=== PATIENT | male | born 1955 | race Caucasian/White ===

== ENCOUNTER 2023-05-21 06:42 | Outpatient (OUT) | payer OTHER, SELFPAY ==
[2023-05-21 07:10] LABS: Basophils Absolute Auto 0.1 10^3/uL (0.0-0.1); Eosinophils Absolute Auto 0.2 10^3/uL (0.0-0.7); Eosinophils Percent Auto 3.7 % (0.9-7.0); Hematocrit 36.7 % (42.0-54.0); Hemoglobin 11.5 g/dL (14.0-18.0); Immature Granulocytes Abs Auto 0.08 10^3/uL (0.00-0.03); Immature Granulocytes Pct Auto 1.3 % (0.0-0.5); Lymphocytes Absolute Auto 0.8 10^3/uL (1.2-3.8); Lymphocytes Percent Auto 12.8 % (20.5-60.0); Mean Corpuscular HGB Conc 31.3 g/dL (29.9-35.2); Mean Corpuscular Volume 86.2 fL (80.0-94.0); Mean Platelet Volume 11.2 fL (9.5-13.5); Monocytes Absolute Auto 0.6 10^3/uL (0.3-0.8); Monocytes Percent Auto 9.3 % (1.7-12.0); Neutrophils Absolute Auto 4.5 10^3/uL (1.4-6.5); Neutrophils Percent Auto 71.9 % (43.0-75.0); Platelet Count 201 10^3/uL (150-450); Red Blood Count 4.26 10^6/uL (4.70-6.10); Red Cell Distribution Width 15.3 % (11.0-15.0); White Blood Count 6.3 10^3/uL (4.0-11.0)
[2023-05-21 07:48] LABS: Estimated Average Glucose 137 mg/dL; Glycohemoglobin A1C 6.4 % (4.5-6.2)
[2023-05-21 08:07] LABS: Alanine Aminotransferase 36 U/L (16-63); Albumin Globulin Ratio 1.1; Albumin Level 3.9 g/dL (3.4-5.0); Alkaline Phosphatase 83 U/L (46-116); Anion Gap 13.9; Aspartate Amino Transferase 21 U/L (15-37); BUN Creatinine Ratio 23.4; Bilirubin Total 0.3 mg/dL (0.2-1.0); Calcium 9.4 mg/dL (8.5-10.1); Carbon Dioxide 26.1 mmol/L (21.0-32.0); Chloride 104 mmol/L (98-107); Chol HDL Ratio 4.8; Cholesterol 209 mg/dL (<=200); Estimated GFR (African America >60 (>=60); Estimated GFR (Non-African Ame 58 (>=60); Globulin 3.6 g/dL; Glucose 129 mg/dL (74-106); HDL Cholesterol 44 mg/dL (40-60); Sodium 140 mmol/L (136-145); Total Protein 7.5 g/dL (6.4-8.2); Triglycerides 243 mg/dL (<=150); VLDL CHOLESTEROL 48.6 mg/dL
[2023-05-21 08:11] LABS: Free T3 2.41 pg/mL (2.18-3.98); Thyroid Stimulating Hormone 1.897 uIU/mL (0.358-3.740); Uric Acid 8.7 mg/dL (3.5-7.2)
[2023-05-21 08:14] LABS: Prostate Specific Antigen Scrn 1.21 ng/mL (<=4.00)
[2023-05-22 11:09] LABS: Insulin 17.5 uIU/mL (2.6-24.9)
[2023-05-23 03:14] LABS: Occult Blood Negative
== END 2023-05-21 06:43 | disposition home or self-care (01) ==
LOC: LAB 06:42
PROVIDERS: PCP Family Medicine; Visit Provider Family Medicine
DX: I10 Essential (primary) hypertension (principal); E78.00 Pure hypercholesterolemia, unspecified; I25.10 Atherosclerotic heart disease of native coronary artery without angina pectoris; Z12.5 Encounter for screening for malignant neoplasm of prostate; R73.09 Other abnormal glucose
CPT/HCPCS: 36415; 80053; 80061; 83036; 83525; 84436; 84443; 84481; 84550; 85025; G0103; G0328

== ENCOUNTER 2023-06-04 07:33 | Outpatient (OUT) | payer OTHER, SELFPAY ==
--- NOTE | 2023-06-04 07:45 | NM_ITS ---
Patient: FEDERICO BURR Exam Date: 06/04/2023 : 1955 Gender:M Ordering : DR Emmanuel Crane . Admission #: [id number] Family : Order #: [id number] CLICK HERE TO VIEW EXAM RADIOLOGY REPORT PROCEDURE: NM [place]IL[place] PERF SPECT REST STR COMPARISON: None. INDICATIONS: Hypertension, coronary artery disease TECHNIQUE: Exam Description: Stress/Rest one day protocol gated SPECT Rest Imagin.8 mCi Tc-99m Cardiolite IV on 06/04/2023 Stress Imaging 30.4 mCi Tc-99m Cardiolite IV on 06/04/2023 Exercise Protocol: 0.4 mg Lexiscan given IV Heart Rate (bpm): Rest: 67 Max: 91 PMHR: 59 Blood Pressure: Rest: 184/88 Max: 184/88 Symptoms: chest pain, neck pain Rest and peak stress ECG findings were abnormal and the exercise portion of the study was abnormal per attending physician Dr. Trinh due to EKG changes. For more details please see separate cardiac stress test report. FINDINGS: QUALITY OF STUDY: Good. PERFUSION DEFECT: LOCATION: Basal inferoseptal. Basal inferior. Basal inferolateral. Mid-anteroseptal. Mid-inferoseptal. Mid-inferior. Mid-inferolateral. Apical anterior. Apical septal. Apical inferior. [place]. SIZE: Large (5 or more segments). SEVERITY: TYPE: Mixed. WALL MOTION: Akinesis: Apical anterior. Apical septal. Apical inferior. Apical lateral. [place]. LV SIZE: Enlarged; EDV 166 mL. TID / TCD: None; 1.1 LVEF: Abnormal. Calculated EF 48%. SUMMARY: Myocardial perfusion imaging study has ABNORMAL findings. CONCLUSION: 1. Slightly reversible perfusion involving the anterior, septal, and inferior lateral sainz. 2. Fixed, absent perfusion of the inferior wall and apex. 3. Akinesis of the apex and a pickle portions of the anterior septal inferior and lateral sainz. 4. Large left ventricle, 166 mL. 5. Abnormal low ejection fraction, 48%. Dictated by: Deshaun Chairez M.D. on 06/04/2023 at 14:44 Approved by: Deshaun Chairez M.D. on 06/04/2023 at 14:50
[2023-06-04] MEDS: REGADENOSON 0.4 MG/5 ML SYRINGE IV (10:07)
--- NOTE | 2023-06-04 11:23 | P.STRESS_ITS ---
Stress Test Stress Test Requesting physician: Emmanuel Crane Procedure: Lexiscan Cardiolite stress test General Information: Reason for Stress Test: Chest pain Cardiac History and Risk Factors: History of NC 2006 s/p stents. Resting 12 - Lead Electrocardiogram: Rate & rhythm: Sinus bradycardia at a rate of 58. [place]: Normal T-waves: Inverted in III, biphasic in II & aVF, flattened in V3-6. ST-segments: Downsloping in II & aVF, and borderline downsloping in V5-6. Stress Test: Protocol: Stoney protocol was initiated, but due to fatigue and frequent ectopic beats, the exercise component was unable to achieve target heart rate and therefore canceled.? Testing was changed to Lexiscan protocol, with injection of 0.4mg Lexiscan IV push followed by Cardiolite. Blood pressure: Initial: 144/90, Maximum: 184/88 Rate & rhythm: Patient remained in normal sinus rhythm during the study.? The maximum heart rate was 91, which was 59% of the maximum predicted heart rate 154. ST-segments & T-waves: At the end of the aborted exercise component (1 minute into recovery), there was new downsloping in I and 1mm ST segment depression in aVL; inverted T-waves in II, III, and aVF assumed a positive orientation during this period. No changes were noted after injection of Lexiscan when compared to baseline EKG. Patient response/symptoms: There were reproducible symptoms (neck pain) similar to the chief complaint at the end of the aborted exercise portion which resolved at rest. Interpretation: This is an abnormal stress test.? Despite aborting the exercise portion initially, the patient had reproducible pain accompanied by positive findings in the anterior leads. These findings were not reproducible during injection of Lexiscan. The patient voiced [] reproducible symptoms alejandro to the chief complaint.? Cardiolite imaging interpretation will be reported separately.? Clinical correlation required.?
== END 2023-06-04 07:34 | disposition home or self-care (01) ==
LOC: NM 07:33
PROVIDERS: PCP Family Medicine; Visit Provider Family Medicine
DX: I10 Essential (primary) hypertension (principal); E78.00 Pure hypercholesterolemia, unspecified; I25.10 Atherosclerotic heart disease of native coronary artery without angina pectoris; R07.9 Chest pain, unspecified
CPT/HCPCS: 78452; 93017; A9500; J2785

== ENCOUNTER 2023-06-30 06:39 | Outpatient (OUT) | payer OTHER, SELFPAY ==
[2023-06-30 06:56] LABS: Basophils Absolute Auto 0.1 10^3/uL (0.0-0.1); Basophils Percent Auto 1.4 % (0.2-2.0); Eosinophils Absolute Auto 0.3 10^3/uL (0.0-0.7); Eosinophils Percent Auto 6.1 % (0.9-7.0); Hematocrit 38.8 % (42.0-54.0); Hemoglobin 12.1 g/dL (14.0-18.0); Immature Granulocytes Abs Auto 0.07 10^3/uL (0.00-0.03); Immature Granulocytes Pct Auto 1.4 % (0.0-0.5); Lymphocytes Absolute Auto 0.9 10^3/uL (1.2-3.8); Lymphocytes Percent Auto 17.4 % (20.5-60.0); Mean Corpuscular HGB Conc 31.2 g/dL (29.9-35.2); Mean Corpuscular Hemoglobin 26.8 pg (25.9-34.0); Mean Corpuscular Volume 85.8 fL (80.0-94.0); Mean Platelet Volume 10.9 fL (9.5-13.5); Monocytes Absolute Auto 0.5 10^3/uL (0.3-0.8); Monocytes Percent Auto 10.7 % (1.7-12.0); Neutrophils Absolute Auto 3.2 10^3/uL (1.4-6.5); Platelet Count 200 10^3/uL (150-450); Red Blood Count 4.52 10^6/uL (4.70-6.10); Red Cell Distribution Width 15.4 % (11.0-15.0); White Blood Count 5.1 10^3/uL (4.0-11.0)
[2023-06-30 07:15] LABS: Anion Gap 12.3; BUN Creatinine Ratio 21.3; Calcium 9.5 mg/dL (8.5-10.1); Carbon Dioxide 28.5 mmol/L (21.0-32.0); Chloride 103 mmol/L (98-107); Estimated GFR (African America >60 (>=60); Estimated GFR (Non-African Ame 59 (>=60); Glucose 161 mg/dL (74-106); Potassium 3.8 mmol/L (3.5-5.1); Sodium 140 mmol/L (136-145)
== END 2023-06-30 06:40 | disposition home or self-care (01) ==
LOC: LAB 06:39
PROVIDERS: PCP Family Medicine; Visit Provider Internal Medicine Cardiovascular Disease
DX: I11.9 Hypertensive heart disease without heart failure (principal)
CPT/HCPCS: 36415; 80048; 85025

== ENCOUNTER 2024-08-05 10:02 | Outpatient (OUT) | payer MEDICARE, OTHER, SELFPAY ==
[2024-08-05 10:40] LABS: Basophils Absolute Auto 0.1 10^3/uL (0.0-0.1); Basophils Percent Auto 1.1 % (0.2-2.0); Eosinophils Absolute Auto 0.3 10^3/uL (0.0-0.7); Eosinophils Percent Auto 5.7 % (0.9-7.0); Hematocrit 40.1 % (42.0-54.0); Hemoglobin 12.6 g/dL (14.0-18.0); Immature Granulocytes Abs Auto 0.05 10^3/uL (0.00-0.03); Immature Granulocytes Pct Auto 0.9 % (0.0-0.5); Lymphocytes Absolute Auto 0.9 10^3/uL (1.2-3.8); Lymphocytes Percent Auto 16.7 % (20.5-60.0); Mean Corpuscular HGB Conc 31.4 g/dL (29.9-35.2); Mean Corpuscular Hemoglobin 27.3 pg (25.9-34.0); Mean Platelet Volume 10.8 fL (9.5-13.5); Monocytes Absolute Auto 0.4 10^3/uL (0.3-0.8); Monocytes Percent Auto 8.1 % (1.7-12.0); Neutrophils Absolute Auto 3.6 10^3/uL (1.4-6.5); Neutrophils Percent Auto 67.5 % (43.0-75.0); Platelet Count 158 10^3/uL (150-450); Red Blood Count 4.61 10^6/uL (4.70-6.10); White Blood Count 5.4 10^3/uL (4.0-11.0)
[2024-08-05 11:46] LABS: Thyroid Stimulating Hormone 1.998 uIU/mL (0.358-3.740)
[2024-08-05 12:06] LABS: Prostate Specific Antigen Scrn 1.32 ng/mL (<=4.00)
== END 2024-08-05 10:03 | disposition home or self-care (01) ==
LOC: LAB 10:07
PROVIDERS: PCP Family Medicine; Visit Provider Family Medicine
DX: E11.35 Type 2 diabetes mellitus with proliferative diabetic retinopathy (principal)
CPT/HCPCS: 36415; 84439; 84443; 85025; G0103

== ENCOUNTER 2024-09-02 13:37 | Outpatient (OUT) | payer MEDICARE, OTHER, SELFPAY ==
[2024-09-02 14:02] LABS: Basophils Percent Auto 0.7 % (0.2-2.0); Eosinophils Absolute Auto 0.3 10^3/uL (0.0-0.7); Eosinophils Percent Auto 4.8 % (0.9-7.0); Hematocrit 38.5 % (42.0-54.0); Hemoglobin 12.1 g/dL (14.0-18.0); Immature Granulocytes Abs Auto 0.05 10^3/uL (0.00-0.03); Immature Granulocytes Pct Auto 0.9 % (0.0-0.5); Lymphocytes Percent Auto 17.6 % (20.5-60.0); Mean Corpuscular HGB Conc 31.4 g/dL (29.9-35.2); Mean Corpuscular Hemoglobin 27.3 pg (25.9-34.0); Mean Corpuscular Volume 86.7 fL (80.0-94.0); Mean Platelet Volume 11.2 fL (9.5-13.5); Monocytes Absolute Auto 0.5 10^3/uL (0.3-0.8); Monocytes Percent Auto 7.8 % (1.7-12.0); Neutrophils Percent Auto 68.2 % (43.0-75.0); Platelet Count 167 10^3/uL (150-450); Red Blood Count 4.44 10^6/uL (4.70-6.10); Red Cell Distribution Width 15.7 % (11.0-15.0); Reticulocyte Pct Auto 1.92 % (0.60-3.10); White Blood Count 5.8 10^3/uL (4.0-11.0)
[2024-09-03 04:10] LABS: Vitamin B12 >2000 pg/mL (232-1245)
[2024-09-05 14:09] LABS: Albumin 3.9 g/dL (2.9-4.4); Alpha-1-Globulin 0.2 g/dL (0.0-0.4); Alpha-2-Globulin 0.7 g/dL (0.4-1.0); Gamma Globulin 0.8 g/dL (0.4-1.8); Protein, Total 6.4 g/dL (6.0-8.5)
[2024-09-06 00:07] LABS: Copper Level 71 ug/dL (69-132)
== END 2024-09-02 13:38 | disposition home or self-care (01) ==
LOC: LAB 13:40
PROVIDERS: PCP Family Medicine; Visit Provider Family Medicine
DX: D64.9 Anemia, unspecified (principal)
CPT/HCPCS: 36415; 82525; 82607; 82728; 82746; 83540; 84155; 84165; 85025; 85045

== ENCOUNTER 2024-09-19 07:34 | Outpatient (RCR) | payer MEDICARE, OTHER, SELFPAY ==
[2024-09-19 11:00] VITALS: BP 132/69; PULSE 61; TEMP 36.6; O2SAT 94
[2024-09-19] MEDS: FERRIC CARBOXYMALTOSE 750 MG in 0.9 % SODIUM CHLORIDE 250 ML 795 MG IV (11:07)
== END 2024-09-22 23:59 | disposition home or self-care (01) ==
LOC: HEMC 07:34
PROVIDERS: PCP Family Medicine; Visit Provider Internal Medicine Hematology & Oncology
DX: D50.9 Iron deficiency anemia, unspecified (principal); D64.9 Anemia, unspecified; K90.9 Intestinal malabsorption, unspecified; K21.9 Gastro-esophageal reflux disease without esophagitis; I25.10 Atherosclerotic heart disease of native coronary artery without angina pectoris; Z95.1 Presence of aortocoronary bypass graft
CPT/HCPCS: 96365; G0463; J1439

== ENCOUNTER 2024-09-26 07:31 | Outpatient (RCR) | payer MEDICARE, OTHER, SELFPAY ==
--- OUTSIDE RECORDS SUMMARY | 2024-09-26 07:43 | XMS_ITS | CCD ---
Author Organization [facility] Care Team Providers Care Industrial Hygiene Manager Name Role Phone DON, DR CONCEPCION Primary Care Unavailable BETHANY, DR SHERIFF Attending Unavailable GRILLIS, DR SHERIFF Consulting Unavailable GRILLIS, DR SHERIFF Admitting Unavailable PETROS, ALEXUS Consulting Unavailable HOY, DR CONCEPCION Primary Care Unavailable HOY, DR CONCEPCION Admitting Unavailable HOY, DR CONCEPCION Attending Unavailable HOY, DR CONCEPCION Consulting Unavailable HOY, DR CONCEPCION Admitting Unavailable HOY, DR CONCEPCION Attending Unavailable HOY, DR CONCEPCION Consulting Unavailable HOY, DR CONCEPCION Primary Care Unavailable GRILLIS, DR SHERIFF Admitting Unavailable HOY, DR CONCEPCION Primary Care Unavailable GRILLIS, DR SHERIFF Attending Unavailable GRILLIS, DR SHERIFF Consulting Unavailable ALGHOTHANI, MOHAMAD Attending Unavailable CARRIZO, STEPHANIE Attending Unavailable CARRIZO, STEPHANIE Attending Unavailable CARRIZOSENSTEPHANIE Attending Unavailable CARRIZO, STEPHANIE Referring Unavailable CARRIZO, STEPHANIE Referring Unavailable QUAN, Referring Unavailable CARRIZO, STEPHANIE Referring Unavailable ALGHOTHANI, MOHAMAD Admitting Unavailable ALGHOTHANI, MOHAMAD Attending Unavailable CARRIZO, STEPHANIE Referring Unavailable CARRIZO, STEPHANIE Referring Unavailable ALGHOTHANI, MOHAMAD Referring Unavailable CARRIZO, STEPHANIE Referring Unavailable CARRIZO, STEPHANIE Referring Unavailable CARRIZO, STEPHANIE Referring Unavailable ALGHOTHANI, MOHAMAD Referring Unavailable Lester NOLASCO, Coco Quiroga Unavailable Rosalia Trinidad MD Unavailable [phone] Jamey Crane MD Primary Care Provider [phone] Rosalia Trinidad MD Unavailable [phone] Jamey Crane MD Primary Care Provider [phone] Jamey Crane MD Primary Care Provider [phone] MARYSOL MORALES Attending Unavailable HOY, JAMEY M Referring Unavailable HOY, JAMEY M Primary Care Unavailable COCO BATISTA Attending Unavailable HOY, JAMEY M Primary Care Unavailable COCO BATISTA Referring Unavailable HOY, JAMEY M Primary Care Unavailable COCO BATISTA Admitting Unavailable COCO BATISTA Referring Unavailable COCO BATISTA Attending Unavailable HOY, JAMEY M Primary Care Unavailable COCO BATISTA Referring Unavailable HOY, JAMEY M Primary Care Unavailable SIMPFENDORFER, ROSALIA Wei Referring Unavaila ble HOY, JAMEY M Primary Care Unavailable HOY, JAMEY M Primary Care Unavailable COCO BATISTA Referring Unavailable COCO BATISTA Referring Unavailable HOY, JAMEY M Primary Care Unavailable SUSHILA LAZAR Attending Unavailable HOY, JAMEY M Primary Care Unavailable SIMPFENDORFERROSALIA C Referring Unavaila ble HOY, JAMEY M Primary Care Unavailable COCO BATISTA Admitting Unavailable COCO BATISTA Referring Unavailable COCO BATISTA Attending Unavailable HOY, JAMEY M Primary Care Unavailable COCO BATISTA Admitting Unavailable COCO BATISTA Referring Unavailable COCO BATISTA Attending Unavailable HOY, JAMEY M Primary Care Unavailable COCO BATISTA Referring Unavailable HOY, JAMEY M Primary Care Unavailable HOY, JAMEY M Primary Care Unavailable COCO BATISTA Referring Unavailable SIMPFENDORFROSALIA TRIANA Attending Unavaila ble COCO BATISTA Referring Unavailable HOY, JAMEY M Primary Care Unavailable COCO BATISTA Attending Unavailable COCO BATISTA Admitting Unavailable SIMPFENDORFERROSALIA C Attending Unavaila ble SIMPFENDORFERROSALIA C Referring Unavaila ble HOY, JAMEY M Primary Care Unavailable SIMPFENDORFER, ROSALIA C Referring Unavaila ble HOY, JAMEY M Primary Care Unavailable SIMPFENDORFER, ROSALIA C Referring Unavaila ble HOY, JAMEY M Primary Care Unavailable SIMPFENDORFER, ROSALIA C Referring Unavaila ble HOY, JAMEY M Primary Care Unavailable COCO BATISTA Attending Unavailable HOY, JAMEY M Primary Care Unavailable COCO BATISTA Referring Unavailable COCO BATISTA Attending Unavailable COCO BATISTA Admitting Unavailable HOY, JAMEY M Primary Care Unavailable COCO BATISTA Referring Unavailable COCO BATISTA Attending Unavailable COCO BATISTA Admitting Unavailable HOY, JAMEY M Primary Care Unavailable ROSALIA TRINIDAD Attending Unavaila ble ROSALIA TRINIDAD Referring Unavaila ble HOY, JAMEY M Primary Care Unavailable HOY, JAMEY M Primary Care Unavailable COCO BATISTA Referring Unavailable Hoy Jamey NOLASCO Primary Care Provider [phone] Jamey Crane MD Primary Care Provider [phone] HOY, JAMEY M Referring Unavailable HOY, JAMEY M Primary Care Unavailable HOY, JAMEY M Referring Unavailable HOY, JAMEY M Primary Care Unavailable HOY, JAMEY M Referring Unavailable HOY, JAMEY M Primary Care Unavailable HOY, JAMEY M Referring Unavailable HOY, JAMEY M Primary Care Unavailable HOY, JAMEY M Referring Unavailable HOY, JAMEY M Primary Care Unavailable HOY, JAMEY M Referring Unavailable HOY, AJMEY M Primary Care Unavailable HOY, JAMEY M Referring Unavailable HOY, JAMEY M Primary Care Unavailable HOY, JAMEY M Referring Unavailable HOY, JAMEY M Primary Care Unavailable HOY, JAMEY M Referring Unavailable HOY, JAMEY M Primary Care Unavailable HOY, JAMEY M Referring Unavailable HOY, JAMEY M Primary Care Unavailable HOY, JAMEY M Referring Unavailable HOY, JAMEY M Primary Care Unavailable HOY, JAMEY M Referring Unavailable HOY, JAMEY M Primary Care Unavailable HOY, JAMEY M Referring Unavailable HOY, JAMEY M Primary Care Unavailable HOY, JAMEY M Referring Unavailable HOY, JAMEY M Primary Care Unavailable HOY, JAMEY M Referring Unavailable HOY, JAMEY M Primary Care Unavailable HOY, JAMEY M Referring Unavailable HOY, JAMEY M Primary Care Unavailable HOY, JAMEY M Referring Unavailable HOY, JAMEY M Primary Care Unavailable HOY, JAMEY M Referring Unavailable HOY, JAMEY M Primary Care Unavailable HOY, JAMEY M Referring Unavailable HOY, JAMEY M Primary Care Unavailable HOY, JAMEY M Referring Unavailable HOY, JAMEY M Primary Care Unavailable HOY, JAMEY M Referring Unavailable HOY, JAMEY M Primary Care Unavailable HOY, JAMEY M Referring Unavailable HOY, JAMEY M Primary Care Unavailable HOY, JAMEY M Referring Unavailable HOY, JAMEY M Primary Care Unavailable HOY, JAMEY M Referring Unavailable HOY, JAMEY M Primary Care Unavailable HOY, JAMEY M Referring Unavailable HOY, JAMEY M Primary Care Unavailable HOY, JAMEY M Referring Unavailable HOY, JAMEY M Primary Care Unavailable HOY, JAMEY M Referring Unavailable HOY, JAMEY M Primary Care Unavailable HOY, JAMEY M Referring Unavailable HOY, JAMEY M Primary Care Unavailable HOY, JAMEY M Referring Unavailable HOY, JAMEY M Primary Care Unavailable HOY, JAMEY M Referring Unavailable HOY, JAMEY M Primary Care Unavailable HOY, JAMEY M Referring Unavailable HOY, JAMEY M Primary Care Unavailable HOY, JAMEY M Referring Unavailable HOY, JAMEY M Primary Care Unavailable HOY, JAMEY M Referring Unavailable HOY, JAMEY M Primary Care Unavailable HOY, JAMEY M Referring Unavailable HOY, JAMEY M Primary Care Unavailable HOY, JAMEY M Referring Unavailable HOY, JAMEY M Primary Care Unavailable HOY, JAMEY M Referring Unavailable HOY, JAMEY M Primary Care Unavailable HOY, JAMEY M Referring Unavailable HOY, JAMEY M Primary Care Unavailable HOY, JAMEY M Referring Unavailable HOY, JAMEY M Primary Care Unavailable HOY, JAMEY M Referring Unavailable HOY, JAMEY M Primary Care Unavailable HOY, JAMEY M Referring Unavailable HOY, JAMEY M Primary Care Unavailable HOY, JAMEY M Referring Unavailable HOY, JAMEY M Primary Care Unavailable HOY, JAMEY M Referring Unavailable HOY, JAMEY M Primary Care Unavailable HOY, JAMEY M Referring Unavailable HOY, JAMEY M Primary Care Unavailable HOY, JAMEY M Referring Unavailable HOY, JAMEY M Primary Care Unavailable HOY, JAMEY M Referring Unavailable HOY, JAMEY M Primary Care Unavailable HOY, JAMEY M Referring Unavailable HOY, JAMEY M Primary Care Unavailable HOY, JAMEY M Referring Unavailable HOY, JAMEY M Primary Care Unavailable HOY, JAMEY M Referring Unavailable HOY, JAMEY M Primary Care Unavailable HOY, JAMEY M Referring Unavailable HOY, JAMEY M Primary Care Unavailable HOY, JAMEY M Referring Unavailable JAMEY CRANE Primary Care Unavailable JAMEY CRANE M Referring Unavailable JAMEY CRANE M Primary Care Unavailable JAMEY CRANE M Referring Unavailable JAMEY CRANE M Primary Care Unavailable SHARITA SIMS Admitting Unavailable SHARITA SIMS Attending Unavailable JAMEY CRANE Primary Care Unavailable Medications Current Medications Medication Drug Class(es) Dates Sig (Normalized) Sig (Original) acetaminophen 500 mg oral tablet (8 sources) Start: 11-02-2023 take 2 tablets by mouth every six hours as needed acetaminophen (TYLENOL EXTRA STRENGTH) 500 mg tablet Take 2 tablets (1,000 mg total) by mouth every 6 (six) hours as needed. 11/02/2023 Active Comment on above: Take 2 tablets by mo [facility] every 6 hours as needed for pain. allopurinol 100 mg oral tablet (20 sources) Xanthine Oxidase Inhibitor Start: 11-02-2023 take 1 tablet by mouth once daily allopurinol (ZYLOPRIM) 100 mg tablet Take 1 tablet by mouth once daily. 11/02/2023 Active Comment on above: Take 100 mg by mouth once daily. Take 1 tablet by [facility] once daily. amLODIPine 5 mg oral tablet (7 sources) Dihydropyridine Calcium Channel Jackie Start: 11-02-2023 End: 2024 take 1 tablet by mouth once daily amLODIPine (NORVASC) 5 mg tablet Take 1 tablet by mouth once daily. 90 tablet 1 11/02/2023 Active Comment on above: Take 1 tablet by [facility] once daily. ascorbic acid 1000 mg oral tablet (20 sources) Vitamin C take 1 tablet by mouth in the morning ascorbic acid, vitamin C, (VITAMIN C) 1000 mg tablet Take 1 tablet (1,000 mg total) by mouth in the morning. Active Comment on above: Take 1,000 mg by [facility]. aspirin 81 mg chewable tablet (20 sources) Platelet Aggregation Inhibitor, Nonsteroidal Anti-inflammatory Drug Start: 11-02-2023 take 1 tablet by mouth once daily aspirin 81 mg chewable tablet Take 1 tablet by mouth once daily. 11/02/2023 Active take 1 tablet by mouth in the mo rning aspirin 81 mg Take 1 tablet (81 mg total) by mouth in the morning. Active take 1 tablet by mouth once amber y aspirin 81 mg chewable tablet Take 81 mg by mouth once daily. 0 Suspended Comment on above: Take 81 mg by mouth once daily. Take 1 tablet by [facility] once daily. atorvastatin 40 mg oral tablet (12 sources) HMG-CoA Reductase Inhibitor Start: take 1 tablet by mouth once daily atorvastatin (LIPITOR) 40 mg tablet Take 1 tablet by mouth once daily. 11/02/2023 Active take 1 tablet by mouth once amber y atorvastatin (LIPITOR) 40 mg tablet Take 40 mg by mouth once daily. 0 Suspended Comment on above: Take 40 mg by mouth once daily. Take 1 tablet by [facility] once daily. carvedilol 25 mg oral tablet (20 sources) alpha-Adrenergic Jackie, beta-Adrenergic Jackie take 1 tablet by mouth once daily in the morning carvedilol (COREG) 25 mg tablet Take 1 tablet (25 mg total) by mouth in the morning and 1 tablet (25 mg total) before bedtime. Take 25 mg by mouth daily. Active take 1 tablet by mouth twice samir ly carvedilol (COREG) 25 mg tablet 2 (two) times a day. Take 25 mg by mouth daily Active Comment on above: Take 25 mg by mouth two times a day with meals. cholecalciferol 0.05 mg oral capsule (20 sources) Vitamin D take 1 capsule by mouth in the morning cholecalciferol, vitamin D3, 2,000 units capsule Take 1 capsule (2,000 Units total) by mouth in the morning. Active Comment on above: Take 2,000 Units by mouth. clopidogrel 75 mg oral tablet (20 sources) P2Y12 Platelet Inhibitor take 1 tablet by mouth once daily clopidogrel (PLAVIX) 75 mg tablet Take 75 mg by mouth once daily. Active Comment on above: Take 75 mg by mouth once daily. cyanocobalamin, vitamin B-12, (VITAMIN B-12 ORAL) (2 sources) take 2500 mg by mouth once daily cyanocobalamin, vitamin B-12, (VITAMIN B-12 ORAL) Take 2,500 mg by mouth once daily. Active take 2500 mg by mouth once daily cyanocobalamin, vitamin B-12, (VITAMIN B-12 ORAL) Take 2,500 mg by mouth once daily. 0 Active empagliflozin 10 mg oral tablet (20 sources) Sodium-Glucose Cotransporter 2 Inhibitor Start: 12-10-2020 empagliflozin (JARDIANCE) 10 mg tablet tablet JARDIANCE 10 MG TABLET 12/10/2020 Active Comment on above: Take 10 mg by mouth daily with breakfast. Take 1 tablet by bl[facility] daily with breakfast. ezetimibe 10 mg oral tablet (20 sources) Dietary Cholesterol Absorption Inhibitor Start: 11-02-2023 take 1 tablet by mouth once daily ezetimibe (ZETIA) 10 mg tablet Take 1 tablet by mouth once daily. 11/02/2023 Active Comment on above: Take 10 mg by mouth once daily. Take 1 tablet by [facility] once daily. febuxostat 80 mg oral tablet (20 sources) Xanthine Oxidase Inhibitor take 1 tablet by mouth once daily febuxostat (ULORIC) 80 mg tablet Take 80 mg by mouth daily. 0 Active ferrous sulfate 325 mg oral tablet (20 sources) Start: 09-05-2020 End: 06-14-2024 ferrous sulfate 325 (65 FE) mg tablet Take by mouth. 09/05/2020 Active Comment on above: Take by mouth as dir ected. furosemide 20 mg oral tablet (1 source) Loop Diuretic Start: 11-02-2023 End: 11-07-2023 take 1 tablet by mouth once daily furosemide (LASIX) 20 mg tablet Take 1 tablet by mouth once daily for 5 days. 5 tablet 0 11/02/2023 11/07/2023 Active Comment on above: Take 1 tablet by [facility] once daily for 5 days. gemfibrozil 600 mg oral tablet (20 sources) Peroxisome Proliferator Receptor alpha Agonist Start: 01-08-2021 gemfibroziL (LOPID) 600 mg tablet glimepiride 2 mg oral tablet (4 sources) Sulfonylurea glimepiride (AMARYL) 2 mg tablet Take 1 tablet (2 mg total) by mouth. Active hydroCHLOROthiazide 25 mg / olmesartan medoxomil 40 mg oral tablet (20 sources) Thiazide Diuretic, Angiotensin 2 Receptor Jackie take 1 tablet by mouth once daily olmesartan-hydroc hlorothiazide (BENICAR HCT) 40-25 mg per tablet Take 1 tablet by mouth daily Active Comment on above: Take 1 tablet by bl[facility] once daily. ibuprofen 800 mg oral tablet (20 sources) Nonsteroidal Anti-inflammatory Drug Start: 04-13-2018 take 1 tablet by mouth three times daily as needed for pain ibuprofen (ADVIL,MOTRIN) 800 mg tablet Take 1 tablet (800 mg total) by mouth 3 (three) times a day as needed for pain for up to 30 doses. 30 tablet 0 04/13/2018 Active 24 hr isosorbide mononitrate 30 mg extended release oral tablet (9 sources) Nitrate Vasodilator take 1 tablet by mouth once daily isosorbide mononitrate (IMDUR) 30 mg 24 hr tablet Take 1 tablet (30 mg total) by mouth daily. Active Comment on above: Take 30 mg by mouth once daily. magnesium sulfate 0.0277 meq/ml / potassium sulfate 0.0374 meq/ml / sodium sulfate 0.257 meq/ml oral solution (20 sources) Start: 01-15-2021 sodium,potassium, mag sulfates (SUPREP BOWEL PREP KIT) 17.5-3.13-1.6 gram recon soln 177 ml,actual weight, 2 times daily, Oral 1 kit 0 01/15/2021 Active Start: 01-15-2021 sodium,potassi um,mag sulfates (SUPREP BOWEL PREP KIT) 17.5-3.13-1.6 gram recon soln 177 ml,actual weight, 2 times daily, Oral 1 kit 0 01/15/2021 Active metFORMIN hydrochloride 1000 mg oral tablet (20 sources) Biguanide Start: 11-02-2023 take 1 tablet by mouth twice daily at mealtime metFORMIN (GLUCOPHAGE) 1,000 mg tablet Take 1 tablet by mouth two times a day with meals. 11/02/2023 Active Comment on above: Take 1,000 mg by blake th two times a day with meals. Take 1 tablet by blake two times a day with meals. niacin 500 mg extended release oral capsule (20 sources) Nicotinic Acid take 4 tablets by mouth once daily at bedtime niacin 500 mg CR capsule Take 500 mg by mouth nightly 4 tabs hs Active Comment on above: Take 500 mg by mouth nightly 4 tabs hs omega-3 acid ethyl esters (retirement) 1000 mg oral capsule (20 sources) take 4 tablets by mouth three times daily at bedtime omega-3 acid ethyl esters (LOVAZA) 1 gram capsule Take 1,000 mg by mouth 3 times daily 4 tabs at hs 0 Active pioglitazone 30 mg oral tablet (20 sources) Peroxisome Proliferator Receptor alpha Agonist, Peroxisome Proliferator Receptor gamma Agonist, Thiazolidinedione Start: 01-08-2021 pioglitazone (ACTOS) 30 mg tablet 01/08/2021 Active Comment on above: Take 30 mg by mouth once daily. Take 1 tablet by [facility] once daily. SITagliptin 100 mg oral tablet (20 sources) Dipeptidyl Peptidase 4 Inhibitor take 1 tablet by mouth once daily sitaGLIPtin (JANUVIA) 100 mg tablet Take 100 mg by mouth daily 0 Active tamsulosin hydrochloride 0.4 mg oral capsule (9 sources) alpha-Adrenergic Jackie Start: 11-02-2023 take 1 capsule by mouth in the morning tamsulosin (FLOMAX) 0.4 mg capsule Take 1 capsule (0.4 mg total) by mouth in the morning. 11/02/2023 Active Comment on above: Take 1 capsule by [facility] once daily. vitamin b12 1 mg/ml oral solution (2 sources) Vitamin B12 take 2500 mg by mouth in the morning cyanocobalamin, vitamin B-12, 1,000 mcg/mL drops Take 2,500 mg by mouth in the morning. Active Zinc (4 sources) take 50 mg by mouth in the morning ZINC ORAL Take 50 mg by mouth in the morning. Active take 50 mg by mouth once daily Z INC ORAL Take 50 mg by mouth once daily. Active take 50 mg by mouth once daily Z INC ORAL Take 50 mg by mouth once daily. 0 Active Completed/Discontinued Medications Medication Drug Class(es) Dates Sig (Normalized) Sig (Original) calcium polycarbophil 625 mg oral tablet (20 sources) End: 06-14-2024 calcium polycarbophil (FIBERCON) 625 mg tablet Take 2 tablets by mouth. 0 06/14/2024 Discontinued (Course of therapy completed) Comment on above: Take 2 tablets by [facility]. docusate sodium 100 mg oral capsule (20 sources) Start: 11-02-2023 End: 06-14-2024 take 1 capsule by mouth twice daily docusate sodium (COLACE) 100 mg capsule Take 1 capsule by mouth two times a day. 0 11/02/2023 06/14/2024 Discontinued (Course of therapy completed) take 2 tablets by mouth once samir ly docusate sodium (COLACE) 100 mg capsule Take 100 mg by mouth nightly 2 tabs 0 Active Comment on above: Take 1 capsule by [facility] two times a day. 12 hr guaiFENesin 600 mg extended release oral tablet (6 sources) Start: 11-02-20 End: 06-14-20 take 1 tablet by mouth every twelve hours as needed for cough guaiFENesin (MUCINEX) 600 mg 12 hr tablet Take 1 tablet by mouth every 12 hours as needed (cough). 0 11/02/2023 06/14/2024 Discontinued (Course of therapy completed) Comment on above: Take 1 tablet by [facility] every 12 hours as needed (cough). melatonin 3 mg oral tablet (6 sources) Start: 11-02-20 End: 06-14-20 take 1 tablet by mouth every twenty-four hours as needed melatonin 3 mg tablet Take 1 tablet by mouth at bedtime as needed for insomnia. 0 11/02/2023 06/14/2024 Discontinued (Course of therapy completed) Comment on above: Take 1 tablet by blake [facility] at bedtime as needed for insomnia. metoprolol tartrate 37.5 mg oral tablet (6 sources) beta-Adrenergic Jackie Start: 11-02-20 End: 06-14-20 take 1 tablet by mouth every eight hours metoprolol tartrate 37.5 mg tab Take 1 tablet by mouth every 8 hours. 90 tablet 1 11/02/2023 06/14/2024 Discontinued (Course of therapy completed) Comment on above: Take 1 tablet by bl[facility] every 8 hours. mupirocin 0.02 mg/mg topical ointment (3 sources) RNA Synthetase Inhibitor Antibacterial Start: 10-27-20 mupirocin (BACTROBAN) 2 % ointment Apply a small amount in each nostril using a cotton swab twice the day before surgery and once the morning of surgery. 22 g 0 10/27/2023 Suspended Comment on above: Apply a small amount in each nostril using a cotton swab twice the day before surgery and once the morning of surgery. pantoprazole 20 mg delayed release oral tablet (6 sources) Proton Pump Inhibitor Start: 11-03-20 End: 06-14-20 take 1 tablet by mouth once daily in the morning pantoprazole DR (PROTONIX) 20 mg tablet Take 1 tablet by mouth daily at 6 am for 7 days. 7 tablet 0 11/03/2023 06/14/2024 Discontinued (Course of therapy completed) Comment on above: Take 1 tablet by blake [facility] daily at 6 am for 7 days. polyethylene glycol 3350 86784 mg powder for oral solution (6 sources) Osmotic Laxative Start: 11-02-20 End: 06-14-20 polyethylene glycol 3350 17 gram packet Take 1 Packet by mouth two times a day. Dissolve dose in 4 - 8 ounces of liquid and take as directed. 20 Each 1 11/02/2023 06/14/2024 Discontinued (Course of therapy completed) Comment on above: Take 1 Packet by blake [facility] two times a day. Dissolve dose in 4 - 8 ounces of liquid and take as directed. 0.25 mg, 0.5 mg dose 1.5 ml semaglutide 1.34 mg/ml pen injector (11 sources) Start: 11-02-20 End: 06-14-20 24 semaglutide (OZEMPIC) 0.25 mg or 0.5 mg(2 mg/1.5 mL) pen Inject 0.5 mg subcutaneously one time a week. 0 11/02/2023 06/14/2024 Discontinued (Course of therapy completed) semaglutide (OZE MPIC) 0.25 mg or 0.5 mg(2 mg/1.5 mL) pen Inject 0.5 mg subcutaneously one time a week. 0 Suspended Comment on above: Inject 0.5 mg subcut aneously one time a week. Problems Active Problems Problem Classification Problem Date Documented Date Episodic/Chronic Acute myocardial infarction (2 sources) Acute myocardial infarction, unspecified; Translations: [Acute myocardial infarction, unspecified] Onset: 08-25-2023 Chronic Anal and rectal conditions (1 source) Rectal polyp; Translations: [Rectal polyp] Onset: 08-29-2024 Episodic Cardiac dysrhythmias (8 sources) Atrial fibrillation; Translations: [Unspecified atrial fibrillation] Onset: 10-31-2023 10-31-2023 Chronic Coagulation and hemorrhagic disorders (8 sources) Thrombocytopenic disorder; Translations: [Thrombocytopenia, unspecified] Onset: 10-28-2023 10-28-2023 Chronic Conditions associated with dizziness or vertigo (2 sources) Dizziness and giddiness; Translations: [Dizziness and giddiness] Onset: 08-24-2023 Episodic Congestive heart failure; nonhypertensive (2 sources) Heart failure, unspecified; Translations: [Heart failure, unspecified] Onset: 09-17-2023 Chronic Coronary atherosclerosis and other heart disease (20 sources) Old myocardial infarction; Translations: [Atherosclerotic heart disease of [place] coronary artery without angina pectoris] Onset: 03-01-2021 Chronic Deficiency and other anemia (1 source) Anemia, unspecified; Translations: [Anemia, unspecified] Onset: 08-17-2024 Episodic Deficiency and other anemia (2 sources) Anemia Onset: 08-17-2024 Episodic Diabetes mellitus without complication (19 sources) Type 2 diabetes mellitus without complications; Translations: [Type 2 diabetes mellitus without complication] Onset: 03-01-2021 Chronic Disorders of lipid metabolism (14 sources) Hyperlipidemia, unspecified; Translations: [Mixed hyperlipidemia] Onset: 06-10-2023 Chronic Diverticulosis and diverticulitis (2 sources) Diverticulosis of large intestine without perforation or abscess without bleeding; Translations: [Diverticulosis of intestine, part unspecified, without perforation or abscess without bleeding] Onset: 03-01-2021 Chronic Essential hypertension (18 sources) Essential (primary) hypertension; Translations: [Essential hypertension] Onset: 08-25-2023 Chronic Hypertension with complications and secondary hypertension (4 sources) Hypertensive heart disease with heart failure; Translations: [Hypertensive heart disease without heart failure] Onset: 06-12-2023 Chronic Other lower respiratory disease (2 sources) Other forms of dyspnea; Translations: [Other forms of dyspnea] Onset: 06-15-2023 Episodic Other lower respiratory disease (2 sources) Shortness of breath; Translations: [Shortness of breath] Onset: 08-24-2023 Episodic Other nutritional; endocrine; and metabolic disorders (14 sources) Obese class I; Translations: [Obesity, unspecified] Onset: 10-27-2023 10-27-2023 Chronic Other screening for suspected conditions (not mental disorders or infectious disease) (5 sources) Encounter for screening for malignant neoplasm of rectum; Translations: [Encounter for screening for malignant neoplasm of prostate] Onset: 01-17-2022 Episodic Residual codes; unclassified (2 sources) Localized edema; Translations: [Localized edema] Onset: 08-24-2023 Episodic Unclassified (1 source) PERSONAL HISTORY OF COVID-19; Translations: [PERSONAL HISTORY OF COVID-19] Onset: 03-01-2021 Unclassified (1 source) CONTACT W/AND (SUSP) EXPOS COVID-19; Translations: [CONTACT W/AND (SUSP) EXPOS COVID-19] Onset: 02-27-2021 Past or Other Problems Problem Classification Problem Date Documented Da te Episodic/Chronic Acute and unspecified renal failure (7 sources) Acute injury of kidney; Translations: [Acute kidney failure, unspecified] Onset: 10-30-2023 10-31-2023 Episodic Administrative/social admission (19 sources) Discharge status; Translations: [Encounter for administrative examinations, unspecified] Onset: 10-26-2023 10-26-2023 Episodic Complication of device; implant or graft (14 sources) Coronary stent stenosis; Translations: [Stenosis of coronary artery stent, subsequent encounter] Onset: 10-27-2023 10-27-2023 Episodic Complications of surgical procedures or medical care (7 sources) Postoperative ileus; Translations: [Other postprocedural complications and disorders of digestive system] Onset: 10-31-2023 10-31-2023 Episodic Coronary atherosclerosis and other heart disease (3 sources) Presence of coronary angioplasty implant and graft; Translations: [Presence of aortocoronary bypass graft] Onset: 03-01-2021 Episodic Fluid and electrolyte disorders (8 sources) Hypervolemia; Translations: [Fluid overload, unspecified] Onset: 10-29-2023 10-29-2023 Episodic Gastrointestinal hemorrhage (4 sources) Hemorrhage of anus and rectum; Translations: [HEMORRHAGE OF ANUS AND RECTUM] Onset: 02-27-2021 Episodic Genitourinary symptoms and ill-defined conditions (8 sources) Retention of urine; Translations: [Retention of urine, unspecified] Onset: 10-31-2023 10-31-2023 Episodic Nonspecific chest pain (3 sources) Other chest pain; Translations: [Chest pain, unspecified] Onset: 06-15-2023 Episodic Other aftercare (1 source) USP (current) use of aspirin; 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] Onset: 03-01-2021 Episodic Other aftercare (1 source) 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/anti platelets; Translations: [SENIOR LIVING ANTITHROMBOT/ANTIPLA TLETS] Onset: 03-01-2021 Episodic Other aftercare (1 source) USP (current) use of oral hypoglycemic drugs; Translations: [SENIOR LIVING USE ORAL HYPOGLYCEMIC DX] Onset: 03-01-2021 Episodic Other aftercare (1 source) Encounter for follow-up examination after completed treatment for conditions other than malignant neoplasm; Translations: [Surgery follow-up] Onset: 11-10-2023 Episodic Other circulatory disease (4 sources) Low blood pressure; Translations: [Hypotension, unspecified] Onset: 10-28-2023 Resolved: 10-29-2023 10-29-2023 Episodic Other gastrointestinal disorders (7 sources) Swollen abdomen; Translations: [Abdominal distension (gaseous)] Onset: 10-30-2023 10-30-2023 Episodic Other nervous system disorders (8 sources) Postoperative pain ; Translations: [Other acute postprocedural pain] Onset: 10-28-2023 10-29-2023 Episodic Pleurisy; pneumothorax; pulmonary collapse (8 sources) Atelectasis; Translations: [Atelectasis] Onset: 10-28-2023 10-29-2023 Episodic Residual codes; unclassified (2 sources) Other specified postprocedural states; Translations: [Other specified postprocedural states] Onset: 07-02-2023 Episodic Results Test Name Value Interpretation Reference Range Facility H PYLORI SCREENon 08-29-2024 H. pylori Org specific cx Ql (Lenny fld) Negative Normal NEG [facility] Comment on above: Performed By: #### 4 4015-6 #### [facility] ([id number]) [address] [place] [address] [address] [place] [address] Surgical Pathologyon 024 Surgical Pathology Normal [facility] Comment on above: Result Comment: [facility] [address] [place] [address] Surgical Pathology Consultation ADDENDUM CA Patient Name:ROLAND HONG:1955 (Age: 69)Gender:MTaken:4Reported:09/01/2024hysician(s):Primo Sims D.O. ([phone])Copy To: Rec. #:[id number]: #[id number] Final Pathologic Diagnosis 1. Antrum biopsy: Mild chronic inactive antral gastritis, with features suggestive chemical or reactive gastritis. No intestinal metaplasia or dysplasia. Immunohistochemistry for Helicobacter pylori organisms is pending; addendum to follow. 2. Rectal polyp; polypectomy: Non-diagnostic sample (only food particles noted). Report Electronically Signed Out wak/09/01/2024Jalen Jones MD Addendum ([facility]) Date Reported: 09/06/2024 In specimen part 1, immunohistochemistry (with appropriate controls) is NEGATIVE for Helicobacter pylori organisms. Electronically Signed Out Jalen Jones MD Interpretation performed at [facility], [address] [place] [address], License number: [id number]. Clinical History Anemia. Gross Description 1. Received in formalin labeled RUFTY, antrum are two light hannah soft tissue bits, 0.2 and 0.3 cm. The specimen is filtered and entirely submitted in a single cassette. (1, ns, [id number],m8) DM. 2. Received in formalin labeled RUFTY, rectum is a hannah possible soft tissue bit admixed with friable vegetative material, less than 0.1 cm. The specimen is filtered and entirely submitted in a single cassette. (1, ns, [id number],m8) DM. dm/08/30/2024NSK Specimen(s) Received 1: Antrum biopsy 2: Rectal polyp Fee Codes(s): 1; 55964, 23386 2; 23028 CNPNon 08-23-2024 CNPN Normal [facility] CNOVon 06-14-2024 CNOV Normal [facility] Comprehensive metabolic 2000 panelon 06-14-2024 Albumin [Mass/Vol] 4.7 g/dL Normal 3.9-4.9 [facility] Comment on above: Order Comment: Speci men Type: BLOOD SPECIMENOrdering Facility: [facility] Address: [address] [id number] Performed By: #### 2 4323-8, 59829-5 ####[facility] [id number] [address] [address] [place] ALP [Catalytic activity/Vol] 87 U/L Normal 38-113 [facility] Comment on above: Order Comment: Speci men Type: BLOOD SPECIMENOrdering Facility: [facility] Address: [address] [id number] Performed By: #### 2 4323-8, 92696-4 ####[facility] [id number] [place] [address] [place] ALT [Catalytic activity/Vol] 16 U/L Normal 10-54 [facility] Comment on above: Order Comment: Speci men Type: BLOOD SPECIMENOrdering Facility: [facility] Address: [address] [place], [place] [address] Performed By: #### 2 4323-8, 45375-7 ####[facility] [id number] [place] [id number] [place] Anion gap [Moles/Vol] 12 mmol/L Normal 8-15 [facility] Comment on above: Order Comment: Speci men Type: BLOOD SPECIMENOrdering Facility: [facility] Address: [address] [place] [address] Performed By: #### 2 4323-8, 44927-0 ####[facility] [id number] [place] [id number] [place] AST [Catalytic activity/Vol] 18 U/L Normal 14-40 [facility] Comment on above: Order Comment: Speci men Type: BLOOD SPECIMENOrdering Facility: [facility] Address: [address] [place] [address] Performed By: #### 2 4323-8, 34482-0 ####[facility] [id number] [place] [address] [place] Bilirubin [Mass/Vol] 0.3 mg/dL Normal 0.2-1.3 [facility] Comment on above: Order Comment: Speci men Type: BLOOD SPECIMENOrdering Facility: [facility] Address: [address] [place] [address] Performed By: #### 2 4323-8, 46139-1 ####[facility] [id number] [place] [address] [place] Calcium [Mass/Vol] 9.9 mg/dL Normal 8.5-10.2 [facility] Comment on above: Order Comment: Speci men Type: BLOOD SPECIMENOrdering Facility: [facility] Address: [address] [place] [address] Performed By: #### 2 4323-8, 07049-9 ####[facility] [id number] [place] [address] [place] Chloride [Moles/Vol] 102 mmol/L Normal 98-107 [facility] Comment on above: Order Comment: Speci men Type: BLOOD SPECIMENOrdering Facility: [facility] Address: [address] [place] [address] Performed By: #### 2 4323-8, 02703-8 ####[facility] [id number] [place] [address] [place] CO2 [Moles/Vol] 25 mmol/L Normal 22-30 [facility] Comment on above: Order Comment: Speci men Type: BLOOD SPECIMENOrdering Facility: [facility] Address: [address] [place], [place] [address] Performed By: #### 2 4323-8, 57527-8 ####[facility] [id number] [place] [address] [place] Creatinine [Mass/Vol] 1.27 mg/dL High 0.73-1.22 [facility] Comment on above: Order Comment: Enma perry Type: BLOOD SPECIMENOrdering Facility: [facility] Address: [address] [place] [address] Performed By: #### 2 4323-8, 76441-7 ####[facility] [id number] [address] OF [facility] Creatinine and Glomerular filtration rate.predicted panel (S/P/Bld) 62 mL/min/1.73m??? Normal >=60 [facility] Comment on above: Order Comment: Enma perry Type: BLOOD SPECIMENOrdering Facility: [facility] Address: [address] [place] [address] Result Comment: Gisselle mated Glomerular Filtration Rate (eGFR) is calculated using the 2020 CKD-EPI creatinine equation. This equation utilizes serum creatinine, sex, and age as parameters. The creatinine assay has traceable calibration to isotope dilution-mass spectrometry. Refer to KDIGO guidelines for clinical interpretation. In patients with unstable renal function, e.g. those with acute kidney injury, the eGFR may not accurately reflect actual GFR. Performed By: #### 2 4323-8, 01068-4 ####[facility] [id number] [place] [address] [place] Glucose [Mass/Vol] 78 mg/dL Normal 74-99 [facility] Comment on above: Order Comment: Enma perry Type: BLOOD SPECIMENOrdering Facility: [facility] Address: [address] [place] [address] Result Comment: The [place] Diabetes Association (ADA) provides guidance for cutoff values for fasting glucose and random glucose. The ADA defines fasting as no caloric intake for at least 8 hours. Fasting plasma glucose results between 100 to 125 mg/dL indicate increased risk for diabetes (prediabetes).Fasting plasma glucose results greater than or equal to 126 mg/dL meet the criteria for diagnosis of diabetes. In the absence of unequivocal hyperglycemia, results should be confirmed by repeat testing. In a patient with classic symptoms of hyperglycemia or hyperglycemic crisis, random plasma glucose results greater than or equal to 200 mg/dL meet the criteria for diagnosis of diabetes.Reference: Standards of Medical Care in Diabetes 2016, [place] Diabetes Association. Diabetes Care. 2016.39(Suppl 1). Performed By: #### 2 4323-8, 94930-0 ####[facility] [id number] [place] [address] [place] Potassium [Moles/Vol] 4.4 mmol/L Normal 3.7-5.1 [facility] Comment on above: Order Comment: Speci men Type: BLOOD SPECIMENOrdering Facility: [facility] Address: [address] [place] [address] Performed By: #### 2 4323-8, 64723-2 ####[facility] [id number] [place] [address] [place] Protein [Mass/Vol] 6.8 g/dL Normal 6.3-8.0 [facility] Comment on above: Order Comment: Speci men Type: BLOOD SPECIMENOrdering Facility: [facility] Address: [address] [place] [address] Performed By: #### 2 4323-8, ####[facility] [id number] [place] [address] [place] Sodium [Moles/Vol] 139 mmol/L Normal 136-144 [facility] Comment on above: Order Comment: Speci men Type: BLOOD SPECIMENOrdering Facility: [facility] Address: [address] [place] [address] Performed By: #### 2 4323-8, 89036-2 ####[facility] [id number] [place] [id number] [place] Urea nitrogen [Mass/Vol] 32 mg/dL High 9-24 [facility] Comment on above: Order Comment: Speci men Type: BLOOD SPECIMENOrdering Facility: [facility] Address: [address] [place] [address] Performed By: #### 2 4323-8, 24030-4 ####[facility] [id number] [place] [address] [place] ECG COMPLETEon 06-14-2024 ECG COMPLETE Normal [facility] HbA1c (Bld)on 06-14-2024 Average glucose Estimated from glycated hemoglobin (Bld) [Mass/Vol] 134 mg/dL Normal [facility] Comment on above: Order Comment: Enma perry Type: BLOOD SPECIMENOrdering Facility: [facility] Address: [address] [place] [address] Result Comment: eAG: (Estimated average glucose) is a calculated value from HgbA1c and is senior sales representative of the average blood glucose level in the last 2-3 month period. Performed By: #### 5 5454-3 ####[facility] [id number] [address] [place] HbA1c (Bld) [Mass fraction] 6.3 % High 4.3-5.6 [facility] Comment on above: Order Comment: Enma perry Type: BLOOD SPECIMENOrdering Facility: [facility] Address: [address] [place] [address] Result Comment: [place] Diabetes Association guidelines indicate that patients with HgbA1c in the range 5.7-6.4% are at increased risk for development of diabetes, and intervention by lifestyle modification may be beneficial. HgbA1c greater or equal to 6.5% is considered diagnostic of diabetes. Performed By: #### 5 5454-3 ####[facility] [id number] [place] [address] [place] Lipid 1996 panelon 4 Cholesterol [Mass/Vol] 168 mg/dL Normal <200 [facility] Comment on above: Order Comment: Enma perry Type: BLOOD SPECIMENOrdering Facility: [facility] Address: [address] [place] [address] Result Comment: <200 mg/dL, Desirable 200-239 mg/dL, Borderline high>239 mg/dL, High Performed By: #### 2 4323-8, 41374-1 ####[facility] [id number] [address] [place] Cholesterol in HDL [Mass/Vol] 38 mg/dL Low >39 [facility] Comment on above: Order Comment: Speci men Type: BLOOD SPECIMENOrdering Facility: [facility] Address: [address] [place] [address] Result Comment: 40-5 9 mg/dL, Acceptable>59 mg/dL, High: Negative risk factor for coronary heart disease<40 mg/dL, Low: Positive risk factor for coronary heart disease Performed By: #### 2 4323-8, 32310-1 ####[facility] [id number] [address] [place] Cholesterol in LDL [Mass/Vol] 68 mg/dL Normal <100 [facility] Comment on above: Order Comment: Enma men Type: BLOOD SPECIMENOrdering Facility: [facility] Address: [address] [place] [address] Result Comment: <100 mg/dL, Optimal 100-129 mg/dL, Near optimal/above optimal 130-159 mg/dL, Borderline high 160-189 mg/dL, High>189 mg/dL, Very highSecondary prevention optimal LDL Cholesterol levels are recommended to be < 70 mg/dL Performed By: #### 2 4323-8, 35367-7 ####[facility] [id number] [place] [address] [place] Cholesterol in LDL/Cholesterol in HDL [Mass ratio] 1.79 {ratio} Normal <2.54 [facility] Comment on above: Order Comment: Alexandroi men Type: BLOOD SPECIMENOrdering Facility: [facility] Address: [address] [place] [address] Result Comment: Refe rence:1. National Cholesterol Education Program ATP III Guideline At-A-Glance Quick Desk Reference: National Heart, Lung, and Blood Eitzen. National Institutes of Health. 2001: NIH Publication No. 01-3305.2. An International Atherosclerosis Society position paper: global recommendations for the management of dyslipidemia: executive summary, Atherosclerosis. 2014: 232(2):410-413. Performed By: #### 2 4323-8, 80497-3 ####[facility] [id number] [place] [address] [place] Cholesterol in VLDL [Mass/Vol] 62 mg/dL High <30 [facility] Comment on above: Order Comment: Speci men Type: BLOOD SPECIMENOrdering Facility: [facility] Address: [address] [place] [address] Performed By: #### 2 4328, ####[facility] [id number] [place] [address] [place] Cholesterol non HDL [Mass/Vol] 130 mg/dL High <130 [facility] Comment on above: Order Comment: Speci men Type: BLOOD SPECIMENOrdering Facility: [facility] Address: [address] [place] [address] Result Comment: <130 mg/dL, Optimal 130-159 mg/dL, Near optimal/above optimal 160-189 mg/dL, Borderline high 190-219 mg/dL, High>219 mg/dL, Very highSecondary prevention optimal non HDL Cholesterol levels are recommended to be <100 mg/dL Performed By: #### 2 43201-28, ####[facility] [id number] [place] [address] [place] Cholesterol.total/Cho lesterol in HDL [Mass ratio] 4.42 {ratio} Normal <5.10 [facility] Comment on above: Order Comment: Alexandroi men Type: BLOOD SPECIMENOrdering Facility: [facility] Address: [address] [place] [address] Performed By: #### 2 4323-8, 76134-9 ####[facility] [id number] [place] [address] [place] FASTING TIME 5 hrs Normal [facility] Comment on above: Order Comment: Speci men Type: BLOOD SPECIMENOrdering Facility: [facility] Address: [address] [place] [address] Performed By: #### 2 4323-8, 26962-4 ####[facility] [id number] [place] [address] [place] Triglyceride [Mass/Vol] 312 mg/dL High <150 [facility] Comment on above: Order Comment: Speci men Type: BLOOD SPECIMENOrdering Facility: [facility] Address: [address] [place] [address] Result Comment: <150 mg/dL, Normal 150-199 mg/dL, Borderline high 200-499 mg/dL, High>499 mg/dL, Very high Performed By: #### 2 4323-8, 33299-6 ####[facility] [id number] [place] [address] [place] CNPNon 05-27-2024 CNPN Normal [facility] Glucose Glucometer (BldC) [M ass/Vol]on 12-31-2023 Glucose [Mass/Vol] 123 mg/dL High 65 - 99 mg/dL [facility] Interpretation and review of laboratory results Abnormal [facility] Glucose [Mass/Vol] 123 mg/dL High 65-99 [facility] CNPNon 12-30-2023 CNPN Normal [facility] Glucose Glucometer (BldC) [M ass/Vol]on 12-30-2023 Glucose [Mass/Vol] 135 mg/dL High 65 - 99 mg/dL [facility] Interpretation and review of laboratory results Abnormal [facility] Glucose [Mass/Vol] 135 mg/dL High 65-99 [facility] Glucose Glucometer (BldC) [M ass/Vol]on 12-28-2023 Glucose [Mass/Vol] 124 mg/dL High 65 - 99 mg/dL [facility] Interpretation and review of laboratory results Abnormal [facility] Glucose [Mass/Vol] 124 mg/dL High 65-99 [facility] Glucose Glucometer (BldC) [M ass/Vol]on 12-24-2023 Glucose [Mass/Vol] 137 mg/dL High 65 - 99 mg/dL [facility] Interpretation and review of laboratory results Abnormal [facility] Glucose [Mass/Vol] 137 mg/dL High 65-99 [facility] Glucose Glucometer (BldC) [M ass/Vol]on 12-23-2023 Glucose [Mass/Vol] 115 mg/dL High 65 - 99 mg/dL [facility] Interpretation and review of laboratory results Abnormal [facility] Glucose [Mass/Vol] 115 mg/dL High 65-99 [facility] Glucose Glucometer (BldC) [M ass/Vol]on 12-21-2023 Glucose [Mass/Vol] 107 mg/dL High 65 - 99 mg/dL [facility] Interpretation and review of laboratory results Abnormal [facility] Glucose [Mass/Vol] 107 mg/dL High 65-99 [facility] CNPNon 12-17-2023 CNPN Normal [facility] Glucose Glucometer (BldC) [M ass/Vol]on 12-17-2023 Glucose [Mass/Vol] 135 mg/dL High 65 - 99 mg/dL [facility] Interpretation and review of laboratory results Abnormal [facility] Glucose [Mass/Vol] 135 mg/dL High 65-99 [facility] Glucose Glucometer (BldC) [M ass/Vol]on 12-16-2023 Glucose [Mass/Vol] 123 mg/dL High 65 - 99 mg/dL [facility] Interpretation and review of laboratory results Abnormal [facility] Glucose [Mass/Vol] 123 mg/dL High 65-99 [facility] Glucose Glucometer (BldC) [M ass/Vol]on 12-14-2023 Glucose [Mass/Vol] 129 mg/dL High 65 - 99 mg/dL [facility] Interpretation and review of laboratory results Abnormal [facility] Glucose [Mass/Vol] 129 mg/dL High 65-99 [facility] CNPNon 12-10-2023 CNPN Normal [facility] CNOVon 12-08-2023 CNOV Normal [facility] ECG COMPLETEon 12-08-2023 ECG COMPLETE Normal [facility] CBC panel Auto (Bld)on 12-04 Erythrocyte distribution width (RBC) [Ratio] 16.8 % High 11.5-15.0 [facility] Comment on above: Order Comment: Speci men Type: BLOOD SPECIMENOrdering Facility: [facility] Address: [address] [place] [address] Performed By: #### 5 8410-2 ####[facility] [id number] [place] [address] [place] Hematocrit (Bld) [Volume fraction] 38.5 % Low 39.0-51.0 [facility] Comment on above: Order Comment: Speci men Type: BLOOD SPECIMENOrdering Facility: [facility] Address: [address] [place] [address] Performed By: #### 5 8410-2 ####[facility] [id number] [place] [address] [place] Hemoglobin (Bld) [Mass/Vol] 11.3 g/dL Low 13.0-17.0 [facility] Comment on above: Order Comment: Speci men Type: BLOOD SPECIMENOrdering Facility: [facility] Address: [address] [place] [address] Performed By: #### 5 8410-2 ####[facility] [id number] [place] [address] [place] MCH (RBC) [Entitic mass] 24.8 pg Low 26.0-34.0 [facility] Comment on above: Order Comment: Speci men Type: BLOOD SPECIMENOrdering Facility: [facility] Address: [address] [place] [address] Performed By: #### 5 8410-2 ####[facility] [id number] [place] [address] [place] MCHC (RBC) [Mass/Vol] 29.4 g/dL Low 30.5-36.0 [facility] Comment on above: Order Comment: Speci men Type: BLOOD SPECIMENOrdering Facility: [facility] Address: [address] [place] [address] Performed By: #### 5 8410-2 ####[facility] [id number] [place] [address] [place] MCV (RBC) [Entitic vol] 84.6 fL Normal 80.0-100.0 [facility] Comment on above: Order Comment: Speci men Type: BLOOD SPECIMENOrdering Facility: [facility] Address: [address] [place] [address] Performed By: #### 5 8410-2 ####[facility] [id number] [place] [address] [place] Nucleated RBC (Bld) [#/Vol] 10*3/uL Normal <0.01 [facility] Comment on above: Order Comment: Speci men Type: BLOOD SPECIMENOrdering Facility: [facility] Address: [address] [place] [address] Performed By: #### 5 8410-2 ####[facility] [id number] [place] [address] [place] Platelet mean volume (Bld) [Entitic vol] 12.2 fL Normal 9.0-12.7 [facility] Comment on above: Order Comment: Speci men Type: BLOOD SPECIMENOrdering Facility: [facility] Address: [address] [place] [address] Performed By: #### 5 8410-2 ####[facility] [id number] [place] [address] [place] Platelets (Bld) [#/Vol] 231 10*3/uL Normal 150-400 [facility] Comment on above: Order Comment: Speci men Type: BLOOD SPECIMENOrdering Facility: [facility] Address: [address] [place] [address] Performed By: #### 5 8410-2 ####[facility] [id number] [place] [address] [place] RBC (Bld) [#/Vol] 4.55 10*6/uL Normal 4.20-6.00 [facility] Comment on above: Order Comment: Speci men Type: BLOOD SPECIMENOrdering Facility: [facility] Address: [address] [place] [address] Performed By: #### 5 8410-2 ####[facility] [id number] [place] [address] [place] WBC (Bld) [#/Vol] 7.58 10*3/uL Normal 3.70-11.00 [facility] Comment on above: Order Comment: Speci men Type: BLOOD SPECIMENOrdering Facility: [facility] Address: [address] [place] [address] Performed By: #### 5 8410-2 ####[facility] [id number] [place] [address] [place] CNOVon 12-04-2023 CNOV Normal [facility] Comprehensive metabolic 2000 panelon 12-04-2023 Albumin [Mass/Vol] 4.5 g/dL Normal 3.9-4.9 [facility] Comment on above: Order Comment: Speci men Type: BLOOD SPECIMENOrdering Facility: [facility] Address: [address] [place] [address] Performed By: #### 2 4323-8 ####[facility] [id number] [place] [address] [place] ALP [Catalytic activity/Vol] 92 U/L Normal 38-113 [facility] Comment on above: Order Comment: Speci men Type: BLOOD SPECIMENOrdering Facility: [facility] Address: [address] [place] [address] Performed By: #### 2 4323-8 ####[facility] [id number] [place] [address] [place] ALT [Catalytic activity/Vol] 11 U/L Normal 10-54 [facility] Comment on above: Order Comment: Speci men Type: BLOOD SPECIMENOrdering Facility: [facility] Address: [address] [place] [address] Performed By: #### 2 4323-8 ####[facility] [id number] [place] [address] [place] Anion gap [Moles/Vol] 15 mmol/L Normal 9-18 [facility] Comment on above: Order Comment: Speci men Type: BLOOD SPECIMENOrdering Facility: [facility] Address: [address] [place] [address] Performed By: #### 2 4323-8 ####[facility] [id number] [place] [address] [place] AST [Catalytic activity/Vol] 15 U/L Normal 14-40 [facility] Comment on above: Order Comment: Speci men Type: BLOOD SPECIMENOrdering Facility: [facility] Address: [address] [place] [address] Performed By: #### 2 4323-8 ####[facility] [id number] [place] [address] [place] Bilirubin [Mass/Vol] 0.3 mg/dL Normal 0.2-1.3 [facility] Comment on above: Order Comment: Speci men Type: BLOOD SPECIMENOrdering Facility: [facility] Address: [address] [place] [address] Performed By: #### 2 4323-8 ####[facility] [id number] [place] [address] [place] Calcium [Mass/Vol] 10.1 mg/dL Normal 8.5-10.2 [facility] Comment on above: Order Comment: Speci men Type: BLOOD SPECIMENOrdering Facility: [facility] Address: [address] [place] [address] Performed By: #### 2 4323-8 ####[facility] [id number] [place] [address] [place] Chloride [Moles/Vol] 100 mmol/L Normal 97-105 [facility] Comment on above: Order Comment: Speci men Type: BLOOD SPECIMENOrdering Facility: [facility] Address: [address] [place] [address] Performed By: #### 2 4323-8 ####[facility] [id number] [place] [address] [place] CO2 [Moles/Vol] 27 mmol/L Normal 22-30 [facility] Comment on above: Order Comment: Speci men Type: BLOOD SPECIMENOrdering Facility: [facility] Address: [address] [place] [address] Performed By: #### 2 4323-8 ####[facility] [id number] [place] [address] [place] Creatinine [Mass/Vol] 1.41 mg/dL High 0.73-1.22 [facility] Comment on above: Order Comment: Speci men Type: BLOOD SPECIMENOrdering Facility: [facility] Address: [address] [place] [address] Performed By: #### 2 4323-8 ####[facility] [id number] [place] [address] [place] Creatinine and Glomerular filtration rate.predicted panel (S/P/Bld) 55 mL/min/1.73m??? Low >=60 [facility] Comment on above: Order Comment: Enma perry Type: BLOOD SPECIMENOrdering Facility: [facility] Address: [address] [place] [address] Result Comment: Gisselle mated Glomerular Filtration Rate (eGFR) is calculated using the 2020 CKD-EPI creatinine equation. This equation utilizes serum creatinine, sex, and age as parameters. The creatinine assay has traceable calibration to isotope dilution-mass spectrometry. Refer to KDIGO guidelines for clinical interpretation. In patients with unstable renal function, e.g. those with acute kidney injury, the eGFR may not accurately reflect actual GFR. Performed By: #### 2 4323-8 ####[facility] [id number] [place] [address] [place] Glucose [Mass/Vol] 105 mg/dL High 74-99 [facility] Comment on above: Order Comment: Enma perry Type: BLOOD SPECIMENOrdering Facility: [facility] Address: [address] [place] [address] Result Comment: The [place] [employer] (ADA) provides guidance for cutoff values for fasting glucose and random glucose. The ADA defines fasting as no caloric intake for at least 8 hours. Fasting plasma glucose results between 100 to 125 mg/dL indicate increased risk for diabetes (prediabetes).Fasting plasma glucose results greater than or equal to 126 mg/dL meet the criteria for diagnosis of diabetes. In the absence of unequivocal hyperglycemia, results should be confirmed by repeat testing. In a patient with classic symptoms of hyperglycemia or hyperglycemic crisis, random plasma glucose results greater than or equal to 200 mg/dL meet the criteria for diagnosis of diabetes.Reference: Standards of Medical Care in Diabetes 2016, [place] [employer]. Diabetes Care. 2016.39(Suppl 1). Performed By: #### 2 4323-8 ####[facility] [id number] [place] [address] [place] Potassium [Moles/Vol] 4.2 mmol/L Normal 3.7-5.1 [facility] Comment on above: Order Comment: Enma perry Type: BLOOD SPECIMENOrdering Facility: [facility] Address: [address] [place] [address] Performed By: #### 2 4323-8 ####[facility] [id number] [place] [address] [place] Protein [Mass/Vol] 6.6 g/dL Normal 6.3-8.0 [facility] Comment on above: Order Comment: Speci men Type: BLOOD SPECIMENOrdering Facility: [facility] Address: [address] [place] [address] Performed By: #### 2 4323-8 ####[facility] [id number] [place] [address] [place] Sodium [Moles/Vol] 142 mmol/L Normal 136-144 [facility] Comment on above: Order Comment: Speci men Type: BLOOD SPECIMENOrdering Facility: [facility] Address: [address] [place] [address] Performed By: #### 2 4323-8 ####[facility] [id number] [place] [address] [place] Urea nitrogen [Mass/Vol] 32 mg/dL High 9-24 [facility] Comment on above: Order Comment: Speci men Type: BLOOD SPECIMENOrdering Facility: [facility] Address: [address] [place] [address] Performed By: #### 2 4323-8 ####[facility] [id number] [place] [address] [place] CBC panel Auto (Bld)on 11-10 Erythrocyte distribution width (RBC) [Ratio] 18.6 % High 11.5-15.0 [facility] Comment on above: Order Comment: Speci men Type: BLOOD SPECIMENOrdering Facility: [facility] Address: [address] [place] [address] Performed By: #### 5 8410-2 ####[facility] [id number] [place] [address] [place] Hematocrit (Bld) [Volume fraction] 32.8 % Low 39.0-51.0 [facility] Comment on above: Order Comment: Speci men Type: BLOOD SPECIMENOrdering Facility: [facility] Address: [address] [place] [address] Performed By: #### 5 8410-2 ####[facility] [id number] [place] [address] [place] Hemoglobin (Bld) [Mass/Vol] 9.8 g/dL Low 13.0-17.0 [facility] Comment on above: Order Comment: Speci men Type: BLOOD SPECIMENOrdering Facility: [facility] Address: [address] [place] [address] Performed By: #### 5 8410-2 ####[facility] [id number] [place] [address] [place] MCH (RBC) [Entitic mass] 25.8 pg Low 26.0-34.0 [facility] Comment on above: Order Comment: Speci men Type: BLOOD SPECIMENOrdering Facility: [facility] Address: [address] [place] [address] Performed By: #### 5 8410-2 ####[facility] [id number] [place] [address] [place] MCHC (RBC) [Mass/Vol] 29.9 g/dL Low 30.5-36.0 [facility] Comment on above: Order Comment: Speci men Type: BLOOD SPECIMENOrdering Facility: [facility] Address: [address] [place] [address] Performed By: #### 5 8410-2 ####[facility] [id number] [place] [address] [place] MCV (RBC) [Entitic vol] 86.3 fL Normal 80.0-100.0 [facility] Comment on above: Order Comment: Speci men Type: BLOOD SPECIMENOrdering Facility: [facility] Address: [address] [place] [address] Performed By: #### 5 8410-2 ####[facility] [id number] [place] [address] [place] Nucleated RBC (Bld) [#/Vol] 0.03 10*3/uL High <0.01 [facility] Comment on above: Order Comment: Speci men Type: BLOOD SPECIMENOrdering Facility: [facility] Address: [address] [place] [address] Performed By: #### 5 8410-2 ####[facility] [id number] [place] [address] [place] Platelet mean volume (Bld) [Entitic vol] 10.2 fL Normal 9.0-12.7 [facility] Comment on above: Order Comment: Speci men Type: BLOOD SPECIMENOrdering Facility: [facility] Address: [address] [place] [address] Performed By: #### 5 8410-2 ####[facility] [id number] [place] [address] [place] Platelets (Bld) [#/Vol] 372 10*3/uL Normal 150-400 [facility] Comment on above: Order Comment: Speci men Type: BLOOD SPECIMENOrdering Facility: [facility] Address: [address] [place] [address] Performed By: #### 5 8410-2 ####[facility] [id number] [place] [address] [place] RBC (Bld) [#/Vol] 3.80 10*6/uL Low 4.20-6.00 [facility] Comment on above: Order Comment: Speci men Type: BLOOD SPECIMENOrdering Facility: [facility] Address: [address] [place] [address] Performed By: #### 5 8410-2 ####[facility] [id number] [address] [address] [place] WBC (Bld) [#/Vol] 14.84 10*3/uL High 3.70-11.00 [facility] Comment on above: Order Comment: Speci men Type: BLOOD SPECIMENOrdering Facility: [facility] Address: [address] [place] [address] Performed By: #### 5 8410-2 ####[facility] [id number] [place] [address] [place] CNOVon 11-10-2023 CNOV Normal [facility] Comprehensive metabolic 2000 panelon 11-10-2023 Albumin [Mass/Vol] 4.0 g/dL Normal 3.9-4.9 [facility] Comment on above: Order Comment: Speci men Type: BLOOD SPECIMENOrdering Facility: [facility] Address: [address] [place] [address] Performed By: #### 2 4323-8 ####[facility] [id number] [place] [address] [place] ALP [Catalytic activity/Vol] 115 U/L High 38-113 [facility] Comment on above: Order Comment: Speci men Type: BLOOD SPECIMENOrdering Facility: [facility] Address: [address] [place] [address] Performed By: #### 2 4323-8 ####[facility] [id number] [place] [id number] [place] ALT [Catalytic activity/Vol] 16 U/L Normal 10-54 [facility] Comment on above: Order Comment: Speci men Type: BLOOD SPECIMENOrdering Facility: [facility] Address: [address] [place] [address] Performed By: #### 2 4323-8 ####[facility] [id number] [address] [address] [id number] [address] [place] Anion gap [Moles/Vol] 16 mmol/L Normal 9-18 [facility] Comment on above: Order Comment: Speci men Type: BLOOD SPECIMENOrdering Facility: [facility] Address: [address] [place] [address] Performed By: #### 2 4323-8 ####[facility] [id number] [place] [address] [place] AST [Catalytic activity/Vol] 17 U/L Normal 14-40 [facility] Comment on above: Order Comment: Speci men Type: BLOOD SPECIMENOrdering Facility: [facility] Address: [address] [place] [address] Performed By: #### 2 4323-8 ####[facility] [id number] [place] [address] [place] Bilirubin [Mass/Vol] 0.4 mg/dL Normal 0.2-1.3 [facility] Comment on above: Order Comment: Speci men Type: BLOOD SPECIMENOrdering Facility: [facility] Address: [address] [place] [address] Performed By: #### 2 4323-8 ####[facility] [id number] [place] [address] [place] Calcium [Mass/Vol] 9.7 mg/dL Normal 8.5-10.2 [facility] Comment on above: Order Comment: Speci men Type: BLOOD SPECIMENOrdering Facility: [facility] Address: [address] [place] [address] Performed By: #### 2 4323-8 ####[facility] [id number] [place] [address] [place] Chloride [Moles/Vol] 98 mmol/L Normal 97-105 [facility] Comment on above: Order Comment: Speci men Type: BLOOD SPECIMENOrdering Facility: [facility] Address: [address] [place] [address] Performed By: #### 2 4323-8 ####[facility] [id number] [place] [address] [place] CO2 [Moles/Vol] 24 mmol/L Normal 22-30 [facility] Comment on above: Order Comment: Speci men Type: BLOOD SPECIMENOrdering Facility: [facility] Address: [address] [place] [address] Performed By: #### 2 4323-8 ####[facility] [id number] [place] [address] [place] Creatinine [Mass/Vol] 1.11 mg/dL Normal 0.73-1.22 [facility] Comment on above: Order Comment: Speci men Type: BLOOD SPECIMENOrdering Facility: [facility] Address: [address] [place] [address] Performed By: #### 2 4323-8 ####[facility] [id number] [place] [address] [place] Creatinine and Glomerular filtration rate.predicted panel (S/P/Bld) 73 mL/min/1.73m??? Normal >=60 [facility] Comment on above: Order Comment: Speci men Type: BLOOD SPECIMENOrdering Facility: [facility] Address: [address] [place] [address] Result Comment: Gisselle mated Glomerular Filtration Rate (eGFR) is calculated using the 2020 CKD-EPI creatinine equation. This equation utilizes serum creatinine, sex, and age as parameters. The creatinine assay has traceable calibration to isotope dilution-mass spectrometry. Refer to KDIGO guidelines for clinical interpretation. In patients with unstable renal function, e.g. those with acute kidney injury, the eGFR may not accurately reflect actual GFR. Performed By: #### 2 4323-8 ####[facility] [id number] [place] [address] [place] Glucose [Mass/Vol] 129 mg/dL High 74-99 [facility] Comment on above: Order Comment: Speci men Type: BLOOD SPECIMENOrdering Facility: [facility] Address: [address] [place] [address] Result Comment: The [place] [employer] (ADA) provides guidance for cutoff values for fasting glucose and random glucose. The ADA defines fasting as no caloric intake for at least 8 hours. Fasting plasma glucose results between 100 to 125 mg/dL indicate increased risk for diabetes (prediabetes).Fasting plasma glucose results greater than or equal to 126 mg/dL meet the criteria for diagnosis of diabetes. In the absence of unequivocal hyperglycemia, results should be confirmed by repeat testing. In a patient with classic symptoms of hyperglycemia or hyperglycemic crisis, random plasma glucose results greater than or equal to 200 mg/dL meet the criteria for diagnosis of diabetes.Reference: Standards of Medical Care in Diabetes 2016, [place] [employer]. Diabetes Care. 2016.39(Suppl 1). Performed By: #### 2 4323-8 ####[facility] [id number] [place] [address] [place] Potassium [Moles/Vol] 4.1 mmol/L Normal 3.7-5.1 [facility] Comment on above: Order Comment: Speci men Type: BLOOD SPECIMENOrdering Facility: [facility] Address: [address] [place] [address] Performed By: #### 2 4323-8 ####[facility] [id number] [place] [address] [place] Protein [Mass/Vol] 6.6 g/dL Normal 6.3-8.0 [facility] Comment on above: Order Comment: Speci men Type: BLOOD SPECIMENOrdering Facility: [facility] Address: [address] [place] [address] Performed By: #### 2 4323-8 ####[facility] [id number] [place] [address] [place] Sodium [Moles/Vol] 138 mmol/L Normal 136-144 [facility] Comment on above: Order Comment: Speci men Type: BLOOD SPECIMENOrdering Facility: [facility] Address: [address] [place] [address] Performed By: #### 2 4323-8 ####[facility] [id number] [place] [address] [place] Urea nitrogen [Mass/Vol] 18 mg/dL Normal 9-24 [facility] Comment on above: Order Comment: Speci men Type: BLOOD SPECIMENOrdering Facility: [facility] Address: [address] [place] [address] Performed By: #### 2 4323-8 ####[facility] [id number] [place] [address] [place] ECG COMPLETEon 11-10-2023 ECG COMPLETE Normal [facility] Urinalysis complete panel (U )on 11-10-2023 Bacteria LM.HPF (Urine sed) [#/Area] Negative Normal Negative [facility] Comment on above: Order Comment: Speci men Type: URINE SPECIMENOrdering Facility: [facility] Address: [address] [place] [address] Performed By: #### 2 4356-8 ####[facility] [id number] [place] [address] [place] Bilirubin Ql (U) Negative Normal Negative [facility] Comment on above: Order Comment: Speci men Type: URINE SPECIMENOrdering Facility: [facility] Address: [address] [place] [address] Performed By: #### 2 4356-8 ####[facility] [id number] [place] [address] [place] Clarity (Unsp spec) Clear Normal Clear [facility] Comment on above: Order Comment: Speci men Type: URINE SPECIMENOrdering Facility: [facility] Address: [address] [place] [address] Performed By: #### 2 4356-8 ####[facility] [id number] [place] [address] [place] Color (U) Yellow Normal Yellow [facility] Comment on above: Order Comment: Speci men Type: URINE SPECIMENOrdering Facility: [facility] Address: [address] [place] [address] Performed By: #### 2 4356-8 ####[facility] [id number] [place] [address] [place] Epithelial cells LM.HPF (Urine sed) [#/Area] None Seen Normal [facility] Comment on above: Order Comment: Speci men Type: URINE SPECIMENOrdering Facility: [facility] Address: [address] [place] [address] Performed By: #### 2 4356-8 ####[facility] [id number] [place] [address] [place] Glucose Test strip (U) [Mass/Vol] Negative Normal Negative [facility] Comment on above: Order Comment: Speci men Type: URINE SPECIMENOrdering Facility: [facility] Address: [address] [place] [address] Performed By: #### 2 4356-8 ####[facility] [id number] [place] [address] [place] Hemoglobin Ql (U) Negative Normal Negative [facility] Comment on above: Order Comment: Speci men Type: URINE SPECIMENOrdering Facility: [facility] Address: [address] [place] [address] Performed By: #### 2 4356-8 ####[facility] [id number] [place] [address] [place] Hyaline casts (Urine sed) [#/Area] 1-3 /LPF Abnormal 0 /LPF [facility] Comment on above: Order Comment: Speci men Type: URINE SPECIMENOrdering Facility: [facility] Address: [address] [place] [address] Performed By: #### 2 4356-8 ####[facility] [id number] [place] [address] [place] Ketones Ql (U) Trace Abnormal Negative [facility] Comment on above: Order Comment: Speci men Type: URINE SPECIMENOrdering Facility: [facility] Address: [address] [place] [address] Performed By: #### 2 4356-8 ####[facility] [id number] [place] [address] [place] Leukocyte esterase Test strip Ql (U) Negative Normal Negative [facility] Comment on above: Order Comment: Speci men Type: URINE SPECIMENOrdering Facility: [facility] Address: [address] [place] [address] Performed By: #### 2 4356-8 ####[facility] LABCLIA [id number] [place] [address] [place] Nitrite Ql (U) Negative Normal Negative [facility] Comment on above: Order Comment: Speci men Type: URINE SPECIMENOrdering Facility: [facility] Address: [address] [place] [address] Performed By: #### 2 4356-8 ####[facility] LABCLIA [id number] [place] [address] [place] pH (U) 5.5 [pH] Normal <8.5 [facility] Comment on above: Order Comment: Speci men Type: URINE SPECIMENOrdering Facility: [facility] Address: [address] [place] [address] Performed By: #### 2 4356-8 ####[facility] LABCLIA [id number] [place] [address] [place] Protein (U) [Mass/Vol] Trace Abnormal Negative [facility] Comment on above: Order Comment: Speci men Type: URINE SPECIMENOrdering Facility: [facility] Address: [address] [place] [address] Performed By: #### 2 4356-8 ####[facility] LABCLIA [id number] [place] [address] [place] RBC LM.HPF (Urine sed) [#/Area] 0-2 /HPF Normal 0-2 /HPF [facility] Comment on above: Order Comment: Speci men Type: URINE SPECIMENOrdering Facility: [facility] Address: [address] [place] [address] Performed By: #### 2 4356-8 ####[facility] LABIA [id number] [place] [address] [place] Specific gravity (U) [Rel density] 1.018 Normal 1.005-1.030 [facility] Comment on above: Order Comment: Speci men Type: URINE SPECIMENOrdering Facility: [facility] Address: [address] [place] [address] Performed By: #### 2 4356-8 ####[facility] LABIA [id number] [place] [address] [place] Urobilinogen Ql (U) 1.0 EU/dL Normal 0.2-1.0 EU/dL [facility] Comment on above: Order Comment: Speci men Type: URINE SPECIMENOrdering Facility: [facility] Address: [address] [place] [address] Performed By: #### 2 4356-8 ####[facility] LABIA [id number] [place] [address] [place] WBC LM.HPF (Urine sed) [#/Area] 0-5 /HPF Normal 0-5 /HPF [facility] Comment on above: Order Comment: Speci men Type: URINE SPECIMENOrdering Facility: [facility] Address: [address] [place] [address] Performed By: #### 2 4356-8 ####[facility] LABIA [id number] [place] [address] [place] XR CHEST 2V FRONTAL/LATon XR CHEST 2V FRONTAL/LAT Normal [facility] CNPNon 11-03-2023 CNPN Normal [facility] ALLIED HEALTHon 11-02-2023 ALLIED HEALTH Normal [facility] CASE MANAGEMon 11-02-2023 CASE MANAGEM Normal [facility] CBC panel Auto (Bld)on 11-02 Erythrocyte distribution width (RBC) [Ratio] 16.8 % High 11.5-15.0 [facility] Comment on above: Order Comment: Speci men Type: BLOOD SPECIMENOrdering Facility: [facility] Address: [address] [place] [address] Performed By: #### 5 8410-2 ####[facility] LABIA [id number] [place] [address] [place] Hematocrit (Bld) [Volume fraction] 28.3 % Low 39.0-51.0 [facility] Comment on above: Order Comment: Speci men Type: BLOOD SPECIMENOrdering Facility: [facility] Address: [address] [place] [address] Performed By: #### 5 8410-2 ####[facility] LABIA [id number] [place] [address] [place] Hemoglobin (Bld) [Mass/Vol] 9.0 g/dL Low 13.0-17.0 [facility] Comment on above: Order Comment: Speci men Type: BLOOD SPECIMENOrdering Facility: [facility] Address: [address] [place] [address] Performed By: #### 5 8410-2 ####[facility] LABIA [id number] [place] [address] [place] MCH (RBC) [Entitic mass] 26.2 pg Normal 26.0-34.0 [facility] Comment on above: Order Comment: Speci men Type: BLOOD SPECIMENOrdering Facility: [facility] Address: [address] [place] [address] Performed By: #### 5 8410-2 ####[facility] LABCLIA [id number] [place] [address] [place] MCHC (RBC) [Mass/Vol] 31.8 g/dL Normal 30.5-36.0 [facility] Comment on above: Order Comment: Speci men Type: BLOOD SPECIMENOrdering Facility: [facility] Address: [address] [place] [address] Performed By: #### 5 8410-2 ####[facility] LABCLIA [id number] [place] [address] [place] MCV (RBC) [Entitic vol] 82.5 fL Normal 80.0-100.0 [facility] Comment on above: Order Comment: Speci men Type: BLOOD SPECIMENOrdering Facility: [facility] Address: [address] [place] [address] Performed By: #### 5 8410-2 ####[facility] LABIA [id number] [place] [address] [place] Nucleated RBC (Bld) [#/Vol] 0.02 10*3/uL High <0.01 [facility] Comment on above: Order Comment: Speci men Type: BLOOD SPECIMENOrdering Facility: [facility] Address: [address] [place] [address] Performed By: #### 5 8410-2 ####[facility] LABIA [id number] [place] [address] [place] Platelet mean volume (Bld) [Entitic vol] 10.8 fL Normal 9.0-12.7 [facility] Comment on above: Order Comment: Speci men Type: BLOOD SPECIMENOrdering Facility: [facility] Address: [address] [place] [address] Performed By: #### 5 8410-2 ####[facility] LABIA [id number] [address] [address] [id number] [address] [place] Platelets (Bld) [#/Vol] 219 10*3/uL Normal 150-400 [facility] Comment on above: Order Comment: Speci men Type: BLOOD SPECIMENOrdering Facility: [facility] Address: [address] [place] [address] Performed By: #### 5 8410-2 ####[facility] LABCLIA [id number] [place] [address] [place] RBC (Bld) [#/Vol] 3.43 10*6/uL Low 4.20-6.00 [facility] Comment on above: Order Comment: Speci men Type: BLOOD SPECIMENOrdering Facility: [facility] Address: [address] [place] [address] Performed By: #### 5 8410-2 ####[facility] LABCLIA [id number] [place] [address] [place] WBC (Bld) [#/Vol] 8.93 10*3/uL Normal 3.70-11.00 [facility] Comment on above: Order Comment: Speci men Type: BLOOD SPECIMENOrdering Facility: [facility] Address: [address] [place] [address] Performed By: #### 5 8410-2 ####[facility] LABCLIA [id number] [place] [address] [place] CONSULT PROGon 11-02-2023 CONSULT PROG Normal [facility] Comprehensive metabolic 2000 panelon 11-02-2023 Albumin [Mass/Vol] 3.2 g/dL Low 3.9-4.9 [facility] Comment on above: Order Comment: Speci men Type: BLOOD SPECIMENOrdering Facility: [facility] Address: [address] [place] [address] Performed By: #### 2 4323-8 ####[facility] LABCLIA [id number] [place] [address] [place] ALP [Catalytic activity/Vol] 63 U/L Normal 38-113 [facility] Comment on above: Order Comment: Speci men Type: BLOOD SPECIMENOrdering Facility: [facility] Address: [address] [place] [address] Performed By: #### 2 4323-8 ####[facility] LABCLIA [id number] [place] [address] [place] ALT [Catalytic activity/Vol] 7 U/L Low 10-54 [facility] Comment on above: Order Comment: Speci men Type: BLOOD SPECIMENOrdering Facility: [facility] Address: [address] [place] [address] Performed By: #### 2 4323-8 ####[facility] LABCLIA [id number] [place] [address] [place] Anion gap [Moles/Vol] 11 mmol/L Normal 9-18 [facility] Comment on above: Order Comment: Speci men Type: BLOOD SPECIMENOrdering Facility: [facility] Address: [address] [place] [address] Performed By: #### 2 4323-8 ####[facility] LABCLIA [id number] [place] [address] [place] AST [Catalytic activity/Vol] 17 U/L Normal 14-40 [facility] Comment on above: Order Comment: Speci men Type: BLOOD SPECIMENOrdering Facility: [facility] Address: [address] [place] [address] Performed By: #### 2 4323-8 ####[facility] LABCLIA [id number] [place] [address] [place] Bilirubin [Mass/Vol] 0.5 mg/dL Normal 0.2-1.3 [facility] Comment on above: Order Comment: Speci men Type: BLOOD SPECIMENOrdering Facility: [facility] Address: [address] [place] [address] Performed By: #### 2 4323-8 ####[facility] LABCLIA [id number] [place] [address] [place] Calcium [Mass/Vol] 9.4 mg/dL Normal 8.5-10.2 [facility] Comment on above: Order Comment: Speci men Type: BLOOD SPECIMENOrdering Facility: [facility] Address: [address] [place] [address] Performed By: #### 2 4323-8 ####[facility] LABCLIA [id number] [place] [address] [place] Chloride [Moles/Vol] 98 mmol/L Normal 97-105 [facility] Comment on above: Order Comment: Speci men Type: BLOOD SPECIMENOrdering Facility: [facility] Address: [address] [place] [address] Performed By: #### 2 4323-8 ####[facility] LABCLIA [id number] [place] [address] [place] CO2 [Moles/Vol] 25 mmol/L Normal 22-30 [facility] Comment on above: Order Comment: Speci men Type: BLOOD SPECIMENOrdering Facility: [facility] Address: [address] [place] [address] Performed By: #### 2 4323-8 ####[facility] LABCLIA [id number] [place] [address] [place] Creatinine [Mass/Vol] 1.17 mg/dL Normal 0.73-1.22 [facility] Comment on above: Order Comment: Speci men Type: BLOOD SPECIMENOrdering Facility: [facility] Address: [address] [place] [address] Performed By: #### 2 4323-8 ####[facility] LABCLIA [id number] [place] [address] [place] Creatinine and Glomerular filtration rate.predicted panel (S/P/Bld) 69 mL/min/1.73m??? Normal >=60 [facility] Comment on above: Order Comment: Enma perry Type: BLOOD SPECIMENOrdering Facility: [facility] Address: [address] [place] [address] Result Comment: Gisselle mated Glomerular Filtration Rate (eGFR) is calculated using the 2020 CKD-EPI creatinine equation. This equation utilizes serum creatinine, sex, and age as parameters. The creatinine assay has traceable calibration to isotope dilution-mass spectrometry. Refer to KDIGO guidelines for clinical interpretation. In patients with unstable renal function, e.g. those with acute kidney injury, the eGFR may not accurately reflect actual GFR. Performed By: #### 2 4323-8 ####[facility] LABIA [id number] [place] [address] [place] Glucose [Mass/Vol] 149 mg/dL High 74-99 [facility] Comment on above: Order Comment: Enma perry Type: BLOOD SPECIMENOrdering Facility: [facility] Address: [address] [place] [address] Result Comment: The [place] [employer] (ADA) provides guidance for cutoff values for fasting glucose and random glucose. The ADA defines fasting as no caloric intake for at least 8 hours. Fasting plasma glucose results between 100 to 125 mg/dL indicate increased risk for diabetes (prediabetes).Fasting plasma glucose results greater than or equal to 126 mg/dL meet the criteria for diagnosis of diabetes. In the absence of unequivocal hyperglycemia, results should be confirmed by repeat testing. In a patient with classic symptoms of hyperglycemia or hyperglycemic crisis, random plasma glucose results greater than or equal to 200 mg/dL meet the criteria for diagnosis of diabetes.Reference: Standards of Medical Care in Diabetes 2016, [place] [employer]. Diabetes Care. 2016.39(Suppl 1). Performed By: #### 2 4323-8 ####[facility] LABIA [id number] [place] [address] [place] Potassium [Moles/Vol] 4.3 mmol/L Normal 3.7-5.1 [facility] Comment on above: Order Comment: Enma perry Type: BLOOD SPECIMENOrdering Facility: [facility] Address: [address] [place] [address] Performed By: #### 2 4323-8 ####[facility] LABCLIA [id number] [place] [address] [place] Protein [Mass/Vol] 5.9 g/dL Low 6.3-8.0 [facility] Comment on above: Order Comment: Speci men Type: BLOOD SPECIMENOrdering Facility: [facility] Address: [address] [place] [address] Performed By: #### 2 4323-8 ####[facility] LABCLIA [id number] [place] [address] [place] Sodium [Moles/Vol] 134 mmol/L Low 136-144 [facility] Comment on above: Order Comment: Speci men Type: BLOOD SPECIMENOrdering Facility: [facility] Address: [address] [place] [address] Performed By: #### 2 4323-8 ####[facility] LABCLIA [id number] [place] [address] [place] Urea nitrogen [Mass/Vol] 47 mg/dL High 9-24 [facility] Comment on above: Order Comment: Speci men Type: BLOOD SPECIMENOrdering Facility: [facility] Address: [address] [place] [address] Performed By: #### 2 4323-8 ####[facility] LABCLIA [id number] [place] [address] [place] ECG COMPLETEon 11-02-2023 ECG COMPLETE Normal [facility] NURSING PROGon 11-02-2023 NURSING PROG Normal [facility] THERAPY NTon 11-02-2023 THERAPY NT Normal [facility] CBC panel Auto (Bld)on 11-01 Erythrocyte distribution width (RBC) [Ratio] 16.7 % High 11.5-15.0 [facility] Comment on above: Order Comment: Speci men Type: BLOOD SPECIMENOrdering Facility: [facility] Address: [address] [place] [address] Performed By: #### 5 8410-2 ####[facility] LABCLIA [id number] [place] [address] [place] Hematocrit (Bld) [Volume fraction] 26.4 % Low 39.0-51.0 [facility] Comment on above: Order Comment: Speci men Type: BLOOD SPECIMENOrdering Facility: [facility] Address: [address] [place] [address] Performed By: #### 5 8410-2 ####[facility] LABIA [id number] [place] [address] [place] Hemoglobin (Bld) [Mass/Vol] 8.4 g/dL Low 13.0-17.0 [facility] Comment on above: Order Comment: Speci men Type: BLOOD SPECIMENOrdering Facility: [facility] Address: [address] [place] [address] Performed By: #### 5 8410-2 ####[facility] LABIA [id number] [place] [address] [place] MCH (RBC) [Entitic mass] 26.3 pg Normal 26.0-34.0 [facility] Comment on above: Order Comment: Speci men Type: BLOOD SPECIMENOrdering Facility: [facility] Address: [address] [place] [address] Performed By: #### 5 8410-2 ####[facility] LABIA [id number] [place] [address] [place] MCHC (RBC) [Mass/Vol] 31.8 g/dL Normal 30.5-36.0 [facility] Comment on above: Order Comment: Speci men Type: BLOOD SPECIMENOrdering Facility: [facility] Address: [address] [place] [address] Performed By: #### 5 8410-2 ####[facility] LABIA [id number] [place] [address] [place] MCV (RBC) [Entitic vol] 82.8 fL Normal 80.0-100.0 [facility] Comment on above: Order Comment: Speci men Type: BLOOD SPECIMENOrdering Facility: [facility] Address: [address] [place] [address] Performed By: #### 5 8410-2 ####[facility] LABCLIA [id number] [place] [address] [place] Nucleated RBC (Bld) [#/Vol] 10*3/uL Normal <0.01 [facility] Comment on above: Order Comment: Speci men Type: BLOOD SPECIMENOrdering Facility: [facility] Address: [address] [place] [address] Performed By: #### 5 8410-2 ####[facility] LABCLIA [id number] [place] [address] [place] Platelet mean volume (Bld) [Entitic vol] 11.4 fL Normal 9.0-12.7 [facility] Comment on above: Order Comment: Speci men Type: BLOOD SPECIMENOrdering Facility: [facility] Address: [address] [place] [address] Performed By: #### 5 8410-2 ####[facility] LABIA [id number] [place] [address] [place] Platelets (Bld) [#/Vol] 170 10*3/uL Normal 150-400 [facility] Comment on above: Order Comment: Speci men Type: BLOOD SPECIMENOrdering Facility: [facility] Address: [address] [place] [address] Performed By: #### 5 8410-2 ####[facility] LABCLIA [id number] [place] [address] [place] RBC (Bld) [#/Vol] 3.19 10*6/uL Low 4.20-6.00 [facility] Comment on above: Order Comment: Speci men Type: BLOOD SPECIMENOrdering Facility: [facility] Address: [address] [place] [address] Performed By: #### 5 8410-2 ####[facility] LABCLIA [id number] [address] [address] [place] WBC (Bld) [#/Vol] 11.11 10*3/uL High 3.70-11.00 [facility] Comment on above: Order Comment: Speci men Type: BLOOD SPECIMENOrdering Facility: [facility] Address: [address] [place] [address] Performed By: #### 5 8410-2 ####[facility] LABCLIA [id number] [place] [address] [place] CNDSon 11-01-2023 CNDS Normal [facility] CONSULT PROGon 11-01-2023 CONSULT PROG Normal [facility] Comprehensive metabolic 2000 panelon 11-01-2023 Albumin [Mass/Vol] 3.2 g/dL Low 3.9-4.9 [facility] Comment on above: Order Comment: Speci men Type: BLOOD SPECIMENOrdering Facility: [facility] Address: [address] [place] [address] Performed By: #### 2 4323-8 ####[facility] LABCLIA [id number] [place] [address] [place] ALP [Catalytic activity/Vol] 59 U/L Normal 38-113 [facility] Comment on above: Order Comment: Speci men Type: BLOOD SPECIMENOrdering Facility: [facility] Address: [address] [place] [address] Performed By: #### 2 4323-8 ####[facility] LABCLIA [id number] [place] [address] [place] ALT [Catalytic activity/Vol] 5 U/L Low 10-54 [facility] Comment on above: Order Comment: Speci men Type: BLOOD SPECIMENOrdering Facility: [facility] Address: [address] [place] [address] Performed By: #### 2 4323-8 ####[facility] LABCLIA [id number] [place] [address] [place] Anion gap [Moles/Vol] 12 mmol/L Normal 9-18 [facility] Comment on above: Order Comment: Speci men Type: BLOOD SPECIMENOrdering Facility: [facility] Address: [address] [place] [address] Performed By: #### 2 4323-8 ####[facility] LABCLIA [id number] [place] [address] [place] AST [Catalytic activity/Vol] 17 U/L Normal 14-40 [facility] Comment on above: Order Comment: Speci men Type: BLOOD SPECIMENOrdering Facility: [facility] Address: [address] [place] [address] Performed By: #### 2 4323-8 ####[facility] LABCLIA [id number] [place] [address] [place] Bilirubin [Mass/Vol] 0.4 mg/dL Normal 0.2-1.3 [facility] Comment on above: Order Comment: Speci men Type: BLOOD SPECIMENOrdering Facility: [facility] Address: [address] [place] [address] Performed By: #### 2 4323-8 ####[facility] LABCLIA [id number] [place] [address] [place] Calcium [Mass/Vol] 9.6 mg/dL Normal 8.5-10.2 [facility] Comment on above: Order Comment: Speci men Type: BLOOD SPECIMENOrdering Facility: [facility] Address: [address] [place] [address] Performed By: #### 2 4323-8 ####[facility] LABCLIA [id number] [place] [address] [place] Chloride [Moles/Vol] 96 mmol/L Low 97-105 [facility] Comment on above: Order Comment: Speci men Type: BLOOD SPECIMENOrdering Facility: [facility] Address: [address] [place] [address] Performed By: #### 2 4323-8 ####[facility] LABCLIA [id number] [place] [address] [place] CO2 [Moles/Vol] 24 mmol/L Normal 22-30 [facility] Comment on above: Order Comment: Speci men Type: BLOOD SPECIMENOrdering Facility: [facility] Address: [address] [place] [address] Performed By: #### 2 4323-8 ####[facility] LABCLIA [id number] [place] [address] [place] Creatinine [Mass/Vol] 1.48 mg/dL High 0.73-1.22 [facility] Comment on above: Order Comment: Speci men Type: BLOOD SPECIMENOrdering Facility: [facility] Address: [address] [place] [address] Performed By: #### 2 4323-8 ####[facility] LABCLIA [id number] [place] [address] [place] Creatinine and Glomerular filtration rate.predicted panel (S/P/Bld) 52 mL/min/1.73m??? Low >=60 [facility] Comment on above: Order Comment: Speci men Type: BLOOD SPECIMENOrdering Facility: [facility] Address: [address] [place] [address] Result Comment: Gisselle mated Glomerular Filtration Rate (eGFR) is calculated using the 2020 CKD-EPI creatinine equation. This equation utilizes serum creatinine, sex, and age as parameters. The creatinine assay has traceable calibration to isotope dilution-mass spectrometry. Refer to KDIGO guidelines for clinical interpretation. In patients with unstable renal function, e.g. those with acute kidney injury, the eGFR may not accurately reflect actual GFR. Performed By: #### 2 4323-8 ####[facility] LABCLIA [id number] [place] [address] [place] Glucose [Mass/Vol] 129 mg/dL High 74-99 [facility] Comment on above: Order Comment: Speci men Type: BLOOD SPECIMENOrdering Facility: [facility] Address: [address] [place] [address] Result Comment: The [place] [employer] (ADA) provides guidance for cutoff values for fasting glucose and random glucose. The ADA defines fasting as no caloric intake for at least 8 hours. Fasting plasma glucose results between 100 to 125 mg/dL indicate increased risk for diabetes (prediabetes).Fasting plasma glucose results greater than or equal to 126 mg/dL meet the criteria for diagnosis of diabetes. In the absence of unequivocal hyperglycemia, results should be confirmed by repeat testing. In a patient with classic symptoms of hyperglycemia or hyperglycemic crisis, random plasma glucose results greater than or equal to 200 mg/dL meet the criteria for diagnosis of diabetes.Reference: Standards of Medical Care in Diabetes 2016, [place] [employer]. Diabetes Care. 2016.39(Suppl 1). Performed By: #### 2 4323-8 ####[facility]CL[facility] [id number] [place] [address] [place] Potassium [Moles/Vol] 4.4 mmol/L Normal 3.7-5.1 [facility] Comment on above: Order Comment: Speci men Type: BLOOD SPECIMENOrdering Facility: [facility] Address: [address] [place] [address] Performed By: #### 2 4323-8 ####[facility] [id number] [place] [address] [place] Protein [Mass/Vol] 5.7 g/dL Low 6.3-8.0 [facility] Comment on above: Order Comment: Speci men Type: BLOOD SPECIMENOrdering Facility: [facility] Address: [address] [place] [address] Performed By: #### 2 4323-8 ####[facility] [id number] [place] [address] [place] Sodium [Moles/Vol] 132 mmol/L Low 136-144 [facility] Comment on above: Order Comment: Speci men Type: BLOOD SPECIMENOrdering Facility: [facility] Address: [address] [place] [address] Performed By: #### 2 4323-8 ####[facility] [id number] [place] [address] [place] Urea nitrogen [Mass/Vol] 55 mg/dL High 9-24 [facility] Comment on above: Order Comment: Speci men Type: BLOOD SPECIMENOrdering Facility: [facility] Address: [address] [place] [address] Performed By: #### 2 4323-8 ####[facility]IA [id number] [place] [address] [place] ECG COMPLETEon 11-01-2023 ECG COMPLETE Normal [facility] ALLIED HEALTHon 10-31-2023 ALLIED HEALTH Normal [facility] CBC panel Auto (Bld)on 10-31 Erythrocyte distribution width (RBC) [Ratio] 16.8 % High 11.5-15.0 [facility] Comment on above: Order Comment: Speci men Type: BLOOD SPECIMENOrdering Facility: [facility] Address: [address] [place] [address] Performed By: #### 5 8410-2 ####[facility] [id number] [place] [address] [place] Hematocrit (Bld) [Volume fraction] 28.6 % Low 39.0-51.0 [facility] Comment on above: Order Comment: Speci men Type: BLOOD SPECIMENOrdering Facility: [facility] Address: [address] [place] [address] Performed By: #### 5 8410-2 ####[facility] [id number] [place] [address] [place] Hemoglobin (Bld) [Mass/Vol] 9.1 g/dL Low 13.0-17.0 [facility] Comment on above: Order Comment: Speci men Type: BLOOD SPECIMENOrdering Facility: [facility] Address: [address] [place] [address] Performed By: #### 5 8410-2 ####[facility] LABIA [id number] [place] [address] [place] MCH (RBC) [Entitic mass] 26.6 pg Normal 26.0-34.0 [facility] Comment on above: Order Comment: Speci men Type: BLOOD SPECIMENOrdering Facility: [facility] Address: [address] [place] [address] Performed By: #### 5 8410-2 ####[facility] [id number] [place] [address] [place] MCHC (RBC) [Mass/Vol] 31.8 g/dL Normal 30.5-36.0 [facility] Comment on above: Order Comment: Speci men Type: BLOOD SPECIMENOrdering Facility: [facility] Address: [address] [place] [address] Performed By: #### 5 8410-2 ####[facility]IA [id number] [place] [address] [place] MCV (RBC) [Entitic vol] 83.6 fL Normal 80.0-100.0 [facility] Comment on above: Order Comment: Speci men Type: BLOOD SPECIMENOrdering Facility: [facility] Address: [address] [place] [address] Performed By: #### 5 8410-2 ####[facility] [id number] [place] [address] [place] Nucleated RBC (Bld) [#/Vol] 10*3/uL Normal <0.01 [facility] Comment on above: Order Comment: Speci men Type: BLOOD SPECIMENOrdering Facility: [facility] Address: [address] [place] [address] Performed By: #### 5 8410-2 ####[facility]IA [id number] [place] [address] [place] Platelet mean volume (Bld) [Entitic vol] 11.7 fL Normal 9.0-12.7 [facility] Comment on above: Order Comment: Speci men Type: BLOOD SPECIMENOrdering Facility: [facility] Address: [address] [place] [address] Performed By: #### 5 8410-2 ####[facility]IA [id number] [place] [address] [place] Platelets (Bld) [#/Vol] 150 10*3/uL Normal 150-400 [facility] Comment on above: Order Comment: Speci men Type: BLOOD SPECIMENOrdering Facility: [facility] Address: [address] [place] [address] Performed By: #### 5 8410-2 ####[facility]IA [id number] [place] [address] [place] RBC (Bld) [#/Vol] 3.42 10*6/uL Low 4.20-6.00 [facility] Comment on above: Order Comment: Speci men Type: BLOOD SPECIMENOrdering Facility: [facility] Address: [address] [place] [address] Performed By: #### 5 8410-2 ####[facility] [id number] [place] [address] [place] WBC (Bld) [#/Vol] 14.84 10*3/uL High 3.70-11.00 [facility] Comment on above: Order Comment: Speci men Type: BLOOD SPECIMENOrdering Facility: [facility] Address: [address] [place] [address] Performed By: #### 5 8410-2 ####[facility] [id number] [place] [id number] [place] CONSULT PROGon 10-31-2023 CONSULT PROG Normal [facility] Comprehensive metabolic 2000 panelon 10-31-2023 Albumin [Mass/Vol] 3.3 g/dL Low 3.9-4.9 [facility] Comment on above: Order Comment: Speci men Type: BLOOD SPECIMENOrdering Facility: [facility] Address: [address] [place] [address] Performed By: #### 2 4323-8, 00961-4 ####[facility] [id number] [place] [address] [place] ALP [Catalytic activity/Vol] 62 U/L Normal 38-113 [facility] Comment on above: Order Comment: Speci men Type: BLOOD SPECIMENOrdering Facility: [facility] Address: [address] [place] [address] Performed By: #### 2 4323-8, 89075-2 ####[facility] [id number] [place] [address] [place] ALT [Catalytic activity/Vol] 6 U/L Low 10-54 [facility] Comment on above: Order Comment: Speci men Type: BLOOD SPECIMENOrdering Facility: [facility] Address: [address] [place] [address] Performed By: #### 2 4323-8, 31824-1 ####[facility] [id number] [place] [id number] [place] Anion gap [Moles/Vol] 13 mmol/L Normal 9-18 [facility] Comment on above: Order Comment: Speci men Type: BLOOD SPECIMENOrdering Facility: [facility] Address: [address] [place] [address] Performed By: #### 2 4323-8, 27837-5 ####[facility]CL[facility] [id number] [place] [address] [place] AST [Catalytic activity/Vol] 16 U/L Normal 14-40 [facility] Comment on above: Order Comment: Speci men Type: BLOOD SPECIMENOrdering Facility: [facility] Address: [address] [place] [address] Performed By: #### 2 4323-8, 76227-5 ####[facility] [id number] [place] [address] [place] Bilirubin [Mass/Vol] 0.5 mg/dL Normal 0.2-1.3 [facility] Comment on above: Order Comment: Speci men Type: BLOOD SPECIMENOrdering Facility: [facility] Address: [address] [place] [address] Performed By: #### 2 4323-8, 06874-4 ####[facility] [id number] [place] [address] [place] Calcium [Mass/Vol] 8.8 mg/dL Normal 8.5-10.2 [facility] Comment on above: Order Comment: Speci men Type: BLOOD SPECIMENOrdering Facility: [facility] Address: [address] [place] [address] Performed By: #### 2 4323-8, 74188-2 ####[facility]CL[facility] [id number] [place] [address] [place] Chloride [Moles/Vol] 98 mmol/L Normal 97-105 [facility] Comment on above: Order Comment: Speci men Type: BLOOD SPECIMENOrdering Facility: [facility] Address: [address] [place] [address] Performed By: #### 2 4323-8, 31655-0 ####[facility] [id number] [place] [address] [place] CO2 [Moles/Vol] 23 mmol/L Normal 22-30 [facility] Comment on above: Order Comment: Speci men Type: BLOOD SPECIMENOrdering Facility: [facility] Address: [address] [place] [address] Performed By: #### 2 4323-8, ####[facility]CL[facility] [id number] [place] [address] [place] Creatinine [Mass/Vol] 1.53 mg/dL High 0.73-1.22 [facility] Comment on above: Order Comment: Speci men Type: BLOOD SPECIMENOrdering Facility: [facility] Address: [address] [place] [address] Performed By: #### 2 4323-8, ####[facility] [id number] [place] [address] [place] Creatinine and Glomerular filtration rate.predicted panel (S/P/Bld) 50 mL/min/1.73m??? Low >=60 [facility] Comment on above: Order Comment: Speci men Type: BLOOD SPECIMENOrdering Facility: [facility] Address: [address] [place] [address] Result Comment: Gisselle mated Glomerular Filtration Rate (eGFR) is calculated using the 2020 CKD-EPI creatinine equation. This equation utilizes serum creatinine, sex, and age as parameters. The creatinine assay has traceable calibration to isotope dilution-mass spectrometry. Refer to KDIGO guidelines for clinical interpretation. In patients with unstable renal function, e.g. those with acute kidney injury, the eGFR may not accurately reflect actual GFR. Performed By: #### 2 4323-8, ####[facility] [id number] [place] [address] [place] Glucose [Mass/Vol] 165 mg/dL High 74-99 [facility] Comment on above: Order Comment: Speci men Type: BLOOD SPECIMENOrdering Facility: [facility] Address: [address] [place] [address] Result Comment: The [place] Diabetes [employer] (ADA) provides guidance for cutoff values for fasting glucose and random glucose. The ADA defines fasting as no caloric intake for at least 8 hours. Fasting plasma glucose results between 100 to 125 mg/dL indicate increased risk for diabetes (prediabetes).Fasting plasma glucose results greater than or equal to 126 mg/dL meet the criteria for diagnosis of diabetes. In the absence of unequivocal hyperglycemia, results should be confirmed by repeat testing. In a patient with classic symptoms of hyperglycemia or hyperglycemic crisis, random plasma glucose results greater than or equal to 200 mg/dL meet the criteria for diagnosis of diabetes.Reference: Standards of Medical Care in Diabetes 2016, [place] [employer]. Diabetes Care. 2016.39(Suppl 1). Performed By: #### 2 4323-8, 99770-2 ####[facility] [id number] [place] [address] [place] Potassium [Moles/Vol] 4.4 mmol/L Normal 3.7-5.1 [facility] Comment on above: Order Comment: Speci men Type: BLOOD SPECIMENOrdering Facility: [facility] Address: [address] [place] [address] Performed By: #### 2 4323-8, ####[facility]IA [id number] [place] [address] [place] Protein [Mass/Vol] 5.8 g/dL Low 6.3-8.0 [facility] Comment on above: Order Comment: Speci men Type: BLOOD SPECIMENOrdering Facility: [facility] Address: [address] [place] [address] Performed By: #### 2 4323-8, ####[facility]IA [id number] [place] [address] [place] Sodium [Moles/Vol] 134 mmol/L Low 136-144 [facility] Comment on above: Order Comment: Speci men Type: BLOOD SPECIMENOrdering Facility: [facility] Address: [address] [place] [address] Performed By: #### 2 4328, 50837-5 ####[facility]CL[facility] [id number] [address] [address] [place] Urea nitrogen [Mass/Vol] 44 mg/dL High 9-24 [facility] Comment on above: Order Comment: Speci men Type: BLOOD SPECIMENOrdering Facility: [facility] Address: [address] [place] [address] Performed By: #### 2 4323-8, 09821-8 ####[facility] [id number] [place] [id number] [place] ECG COMPLETEon 10-31-2023 ECG COMPLETE Normal [facility] [id number] 10-31-2023 ECG01 Normal [facility] Lipid 1996 panelon Cholesterol [Mass/Vol] 108 mg/dL Normal <200 [facility] Comment on above: Order Comment: Speci men Type: BLOOD SPECIMENOrdering Facility: [facility] Address: [address] [place] [address] Result Comment: <200 mg/dL, Desirable 200-239 mg/dL, Borderline high>239 mg/dL, High Performed By: #### 2 4323-8, 98662-2 ####[facility]CL[facility] [id number] [place] [address] [place] Cholesterol in HDL [Mass/Vol] 39 mg/dL Low >39 [facility] Comment on above: Order Comment: Speci men Type: BLOOD SPECIMENOrdering Facility: [facility] Address: [address] [place] [address] Result Comment: 40-5 9 mg/dL, Acceptable>59 mg/dL, High: Negative risk factor for coronary heart disease<40 mg/dL, Low: Positive risk factor for coronary heart disease Performed By: #### 2 4323-8, 76301-1 ####[facility]CL[facility] [id number] [place] [id number] [place] Cholesterol in LDL [Mass/Vol] 43 mg/dL Normal <100 [facility] Comment on above: Order Comment: Speci men Type: BLOOD SPECIMENOrdering Facility: [facility] Address: [address] [place] [address] Result Comment: <100 mg/dL, Optimal 100-129 mg/dL, Near optimal/above optimal 130-159 mg/dL, Borderline high 160-189 mg/dL, High>189 mg/dL, Very highSecondary prevention optimal LDL Cholesterol levels are recommended to be < 70 mg/dL Performed By: #### 2 4323-8, 06433-0 ####[facility]CL[facility] [id number] [place] [address] [place] Cholesterol in LDL/Cholesterol in HDL [Mass ratio] 1.10 {ratio} Normal <2.54 [facility] Comment on above: Order Comment: Speci men Type: BLOOD SPECIMENOrdering Facility: [facility] Address: [address] [place] [address] Result Comment: Alix dow:1. National Cholesterol Education Program ATP III Guideline At-A-Glance Quick Desk Reference: National Heart, Lung, and Blood Eitzen. National Institutes of Health. 2001: NIH Publication No. 01-3305.2. An International Atherosclerosis Society position paper: global recommendations for the management of dyslipidemia: executive summary, Atherosclerosis. 2014: 232(2):410-413. Performed By: #### 2 4323-8, ####[facility]CL[facility] [id number] [place] [address] [place] Cholesterol in VLDL [Mass/Vol] 26 mg/dL Normal <30 [facility] Comment on above: Order Comment: Speci men Type: BLOOD SPECIMENOrdering Facility: [facility] Address: [address] [place] [address] Performed By: #### 2 4323-8, ####[facility]CL[facility] [id number] [place] [address] [place] Cholesterol non HDL [Mass/Vol] 69 mg/dL Normal <130 [facility] Comment on above: Order Comment: Speci men Type: BLOOD SPECIMENOrdering Facility: [facility] Address: [address] [place] [address] Result Comment: <130 mg/dL, Optimal 130-159 mg/dL, Near optimal/above optimal 160-189 mg/dL, Borderline high 190-219 mg/dL, High>219 mg/dL, Very highSecondary prevention optimal non HDL Cholesterol levels are recommended to be <100 mg/dL Performed By: #### 2 4323-8, 85276-5 ####[facility] [id number] [place] [address] [place] Cholesterol.total/Cho lesterol in HDL [Mass ratio] 2.77 {ratio} Normal <5.10 [facility] Comment on above: Order Comment: Speci men Type: BLOOD SPECIMENOrdering Facility: [facility] Address: [address] [place] [address] Performed By: #### 2 4323-8, 59500-7 ####[facility]CL[facility] [id number] [place] [address] [place] FASTING TIME 10 hrs Normal [facility] Comment on above: Order Comment: Speci men Type: BLOOD SPECIMENOrdering Facility: [facility] Address: [address] [place] [address] Performed By: #### 2 4323-8, 51333-3 ####[facility] [id number] [place] [address] [place] Triglyceride [Mass/Vol] 132 mg/dL Normal <150 [facility] Comment on above: Order Comment: Speci men Type: BLOOD SPECIMENOrdering Facility: [facility] Address: [address] [place] [address] Result Comment: <150 mg/dL, Normal 150-199 mg/dL, Borderline high 200-499 mg/dL, High>499 mg/dL, Very high Performed By: #### 2 4323-8, 03465-4 ####[facility] [id number] [place] [address] [place] THERAPY NTon 10-31-2023 THERAPY NT Normal [facility] CBC panel Auto (Bld)on 10-30 Erythrocyte distribution width (RBC) [Ratio] 16.9 % High 11.5-15.0 [facility] Comment on above: Order Comment: Speci men Type: BLOOD SPECIMENOrdering Facility: [facility] Address: [address] [place] [address] Performed By: #### 5 8410-2 ####[facility]IA [id number] [place] [address] [place] Hematocrit (Bld) [Volume fraction] 31.7 % Low 39.0-51.0 [facility] Comment on above: Order Comment: Speci men Type: BLOOD SPECIMENOrdering Facility: [facility] Address: [address] [place] [address] Performed By: #### 5 8410-2 ####[facility] [id number] [address] [place] Hemoglobin (Bld) [Mass/Vol] 10.1 g/dL Low 13.0-17.0 [facility] Comment on above: Order Comment: Speci men Type: BLOOD SPECIMENOrdering Facility: [facility] Address: [address] [place] [address] Performed By: #### 5 8410-2 ####[facility]IA [id number] [place] [address] [place] MCH (RBC) [Entitic mass] 26.8 pg Normal 26.0-34.0 [facility] Comment on above: Order Comment: Speci men Type: BLOOD SPECIMENOrdering Facility: [facility] Address: [address] [place] [address] Performed By: #### 5 8410-2 ####[facility] [id number] [place] [address] [place] MCHC (RBC) [Mass/Vol] 31.9 g/dL Normal 30.5-36.0 [facility] Comment on above: Order Comment: Speci men Type: BLOOD SPECIMENOrdering Facility: [facility] Address: [address] [place] [address] Performed By: #### 5 8410-2 ####[facility]CL[facility] [id number] [place] [address] [place] MCV (RBC) [Entitic vol] 84.1 fL Normal 80.0-100.0 [facility] Comment on above: Order Comment: Speci men Type: BLOOD SPECIMENOrdering Facility: [facility] Address: [address] [place] [address] Performed By: #### 5 8410-2 ####[facility] [id number] [place] [address] [place] Nucleated RBC (Bld) [#/Vol] 10*3/uL Normal <0.01 [facility] Comment on above: Order Comment: Speci men Type: BLOOD SPECIMENOrdering Facility: [facility] Address: [address] [place] [address] Performed By: #### 5 8410-2 ####[facility]CL[facility] [id number] [place] [address] [place] Platelet mean volume (Bld) [Entitic vol] 11.8 fL Normal 9.0-12.7 [facility] Comment on above: Order Comment: Speci men Type: BLOOD SPECIMENOrdering Facility: [facility] Address: [address] [place] [address] Performed By: #### 5 8410-2 ####[facility] [id number] [place] [address] [place] Platelets (Bld) [#/Vol] 167 10*3/uL Normal 150-400 [facility] Comment on above: Order Comment: Speci men Type: BLOOD SPECIMENOrdering Facility: [facility] Address: [address] [place] [address] Performed By: #### 5 8410-2 ####[facility] [id number] [place] [address] [place] RBC (Bld) [#/Vol] 3.77 10*6/uL Low 4.20-6.00 [facility] Comment on above: Order Comment: Speci men Type: BLOOD SPECIMENOrdering Facility: [facility] Address: [address] [place] [address] Performed By: #### 5 8410-2 ####[facility] [id number] [place] [address] [place] WBC (Bld) [#/Vol] 17.15 10*3/uL High 3.70-11.00 [facility] Comment on above: Order Comment: Speci men Type: BLOOD SPECIMENOrdering Facility: [facility] Address: [address] [place] [address] Performed By: #### 5 8410-2 ####[facility] [id number] [place] [address] [place] Erythrocyte distribution width (RBC) [Ratio] 17.1 % High 11.5-15.0 [facility] Comment on above: Order Comment: Speci men Type: BLOOD SPECIMENOrdering Facility: [facility] Address: [address] [place] [address] Performed By: #### 5 8410-2 ####[facility] [id number] [place] [address] [place] Hematocrit (Bld) [Volume fraction] 32.5 % Low 39.0-51.0 [facility] Comment on above: Order Comment: Speci men Type: BLOOD SPECIMENOrdering Facility: [facility] Address: [address] [place] [address] Performed By: #### 5 8410-2 ####[facility] [id number] [place] [address] [place] Hemoglobin (Bld) [Mass/Vol] 9.9 g/dL Low 13.0-17.0 [facility] Comment on above: Order Comment: Speci men Type: BLOOD SPECIMENOrdering Facility: [facility] Address: [address] [place] [address] Performed By: #### 5 8410-2 ####[facility] [id number] [place] [address] [place] MCH (RBC) [Entitic mass] 26.0 pg Normal 26.0-34.0 [facility] Comment on above: Order Comment: Speci men Type: BLOOD SPECIMENOrdering Facility: [facility] Address: [address] [place] [address] Performed By: #### 5 8410-2 ####[facility] [id number] [place] [address] [place] MCHC (RBC) [Mass/Vol] 30.5 g/dL Normal 30.5-36.0 [facility] [facility] Comment on above: Order Comment: Speci men Type: BLOOD SPECIMENOrdering Facility: [facility] Address: [address] [place] [address] Performed By: #### 5 8410-2 ####[facility] LABIA [id number] [place] [address] [place] MCV (RBC) [Entitic vol] 85.3 fL Normal 80.0-100.0 [facility] Comment on above: Order Comment: Speci men Type: BLOOD SPECIMENOrdering Facility: [facility] Address: [address] [place] [address] Performed By: #### 5 8410-2 ####[facility] LABCLIA [id number] [place] [address] [place] Nucleated RBC (Bld) [#/Vol] 10*3/uL Normal <0.01 [facility] Comment on above: Order Comment: Speci men Type: BLOOD SPECIMENOrdering Facility: [facility] Address: [address] [place] [address] Performed By: #### 5 8410-2 ####[facility] [id number] [place] [address] [place] Platelet mean volume (Bld) [Entitic vol] 12.5 fL Normal 9.0-12.7 [facility] Comment on above: Order Comment: Speci men Type: BLOOD SPECIMENOrdering Facility: [facility] Address: [address] [place] [address] Performed By: #### 5 8410-2 ####[facility] [id number] [place] [address] [place] Platelets (Bld) [#/Vol] 157 10*3/uL Normal 150-400 [facility] Comment on above: Order Comment: Speci men Type: BLOOD SPECIMENOrdering Facility: [facility] Address: [address] [place] [address] Performed By: #### 5 8410-2 ####[facility] [id number] [place] [address] [place] RBC (Bld) [#/Vol] 3.81 10*6/uL Low 4.20-6.00 [facility] Comment on above: Order Comment: Speci men Type: BLOOD SPECIMENOrdering Facility: [facility] Address: [address] [place] [address] Performed By: #### 5 8410-2 ####[facility]IA [id number] [place] [address] [place] WBC (Bld) [#/Vol] 15.58 10*3/uL High 3.70-11.00 [facility] Comment on above: Order Comment: Speci men Type: BLOOD SPECIMENOrdering Facility: [facility] Address: [address] [place] [address] Performed By: #### 5 8410-2 ####[facility] LABCLIA [id number] [place] [address] [place] CNPNon 10-30-2023 CNPN Normal [facility] CONSULTon 10-30-2023 CONSULT Normal [facility] CT ABD/PEL WO IVCONon 2022 CT ABD/PEL WO IVCON Normal [facility] Comprehensive metabolic 2000 panelon 10-30-2023 Albumin [Mass/Vol] 3.7 g/dL Low 3.9-4.9 [facility] Comment on above: Order Comment: Speci men Type: BLOOD SPECIMENOrdering Facility: [facility] Address: [address] [place] [address] Performed By: #### 2 432-8, ####[facility] LABCLIA [id number] [place] [address] [place] ALP [Catalytic activity/Vol] 59 U/L Normal 38-113 [facility] Comment on above: Order Comment: Speci men Type: BLOOD SPECIMENOrdering Facility: [facility] Address: [address] [place] [address] Performed By: #### 2 432-8, ####[facility] LABCLIA [id number] [place] [address] [place] ALT [Catalytic activity/Vol] 12 U/L Normal 10-54 [facility] Comment on above: Order Comment: Speci men Type: BLOOD SPECIMENOrdering Facility: [facility] Address: [address] [place] [address] Performed By: #### 2 4323-8, ####[facility] LABCLIA [id number] [place] [id number] [place] Anion gap [Moles/Vol] 11 mmol/L Normal 9-18 [facility] Comment on above: Order Comment: Speci men Type: BLOOD SPECIMENOrdering Facility: [facility] Address: [address] [place] [address] Performed By: #### 2 4323-8, ####[facility]IA [id number] [place] [address] [place] AST [Catalytic activity/Vol] 18 U/L Normal 14-40 [facility] Comment on above: Order Comment: Speci men Type: BLOOD SPECIMENOrdering Facility: [facility] Address: [address] [place] [address] Performed By: #### 2 8, ####[facility] [id number] [place] [address] [place] Bilirubin [Mass/Vol] 0.3 mg/dL Normal 0.2-1.3 [facility] Comment on above: Order Comment: Speci men Type: BLOOD SPECIMENOrdering Facility: [facility] Address: [address] [place] [address] Performed By: #### 2 8, ####[facility]IA [id number] [place] [address] [place] Calcium [Mass/Vol] 8.8 mg/dL Normal 8.5-10.2 [facility] Comment on above: Order Comment: Speci men Type: BLOOD SPECIMENOrdering Facility: [facility] Address: [address] [place] [address] Performed By: #### 2 8, ####[facility]IA [id number] [place] [id number] [place] Chloride [Moles/Vol] 99 mmol/L Normal 97-105 [facility] Comment on above: Order Comment: Speci men Type: BLOOD SPECIMENOrdering Facility: [facility] Address: [address] [place] [address] Performed By: #### 2 43201-28, ####[facility] LABCLIA [id number] [place] [id number] [place] CO2 [Moles/Vol] 26 mmol/L Normal 22-30 [facility] Comment on above: Order Comment: Speci men Type: BLOOD SPECIMENOrdering Facility: [facility] Address: [address] [place] [address] Performed By: #### 2 43238, ####[facility]IA [id number] [place] [address] [place] Creatinine [Mass/Vol] 1.83 mg/dL High 0.73-1.22 [facility] Comment on above: Order Comment: Speci men Type: BLOOD SPECIMENOrdering Facility: [facility] Address: [address] [place] [address] Performed By: #### 2 43238, ####[facility] [id number] [place] [address] [place] Creatinine and Glomerular filtration rate.predicted panel (S/P/Bld) 40 mL/min/1.73m??? Low >=60 [facility] Comment on above: Order Comment: Speci men Type: BLOOD SPECIMENOrdering Facility: [facility] Address: [address] [place] [address] Result Comment: Gisselle mated Glomerular Filtration Rate (eGFR) is calculated using the 2020 CKD-EPI creatinine equation. This equation utilizes serum creatinine, sex, and age as parameters. The creatinine assay has traceable calibration to isotope dilution-mass spectrometry. Refer to KDIGO guidelines for clinical interpretation. In patients with unstable renal function, e.g. those with acute kidney injury, the eGFR may not accurately reflect actual GFR. Performed By: #### 2 4323-8, ####[facility] LABCLIA [id number] [place] [id number] [place] Glucose [Mass/Vol] 163 mg/dL High 74-99 [facility] Comment on above: Order Comment: Speci men Type: BLOOD SPECIMENOrdering Facility: [facility] Address: [address] [place] [address] Result Comment: The [place] [employer] (ADA) provides guidance for cutoff values for fasting glucose and random glucose. The ADA defines fasting as no caloric intake for at least 8 hours. Fasting plasma glucose results between 100 to 125 mg/dL indicate increased risk for diabetes (prediabetes).Fasting plasma glucose results greater than or equal to 126 mg/dL meet the criteria for diagnosis of diabetes. In the absence of unequivocal hyperglycemia, results should be confirmed by repeat testing. In a patient with classic symptoms of hyperglycemia or hyperglycemic crisis, random plasma glucose results greater than or equal to 200 mg/dL meet the criteria for diagnosis of diabetes.Reference: Standards of Medical Care in Diabetes 2016, [place] [employer]. Diabetes Care. 2016.39(Suppl 1). Performed By: #### 2 4323-8, ####[facility] LABCLIA [id number] [place] [address] [place] Potassium [Moles/Vol] 4.5 mmol/L Normal 3.7-5.1 [facility] Comment on above: Order Comment: Enma perry Type: BLOOD SPECIMENOrdering Facility: [facility] Address: [address] [place] [address] Performed By: #### 2 43201-28, ####[facility] LABCLIA [id number] [place] [address] [place] Protein [Mass/Vol] 5.9 g/dL Low 6.3-8.0 [facility] Comment on above: Order Comment: Enma perry Type: BLOOD SPECIMENOrdering Facility: [facility] Address: [address] [place] [address] Performed By: #### 2 4323-06, ####[facility] LABCLIA [id number] [place] [id number] [place] Sodium [Moles/Vol] 136 mmol/L Normal 136-144 [facility] Comment on above: Order Comment: Speci men Type: BLOOD SPECIMENOrdering Facility: [facility] Address: [address] [place] [address] Performed By: #### 2 4323-8, ####[facility] LABCLIA [id number] [place] [address] [place] Urea nitrogen [Mass/Vol] 33 mg/dL High 9-24 [facility] Comment on above: Order Comment: Speci men Type: BLOOD SPECIMENOrdering Facility: [facility] Address: [address] [place] [address] Performed By: #### 2 4323-8, ####[facility] LABCLIA [id number] [place] [address] [place] ECG COMPLETEon 10-30-2023 ECG COMPLETE Normal [facility] Magnesium SerPl-mCncon 10-30 Magnesium [Mass/Vol] 2.3 mg/dL Normal 1.7-2.3 [facility] Comment on above: Order Comment: Speci men Type: BLOOD SPECIMENOrdering Facility: [facility] Address: [address] [place] [address] Performed By: #### 2 4323-8, ####[facility] LABCLIA [id number] [place] [address] [place] SEPSIS LACTATEon 10-30-2023 Lactate [Moles/Vol] 1.6 mmol/L Normal <=2.0 [facility] Comment on above: Order Comment: Speci men Type: BLOOD SPECIMENOrdering Facility: [facility] Address: [address] [place] [address] Performed By: #### S LACT ####[facility] LABCLIA [id number] [place] [id number] [place] XR CHEST 2V FRONTAL/LATon XR CHEST 2V FRONTAL/LAT Normal [facility] ARTERIAL BLOOD GASESon 10-29 Base excess Calc (Bld) [Moles/Vol] 1 mmol/L Normal 0-2 [facility] Comment on above: Order Comment: Speci men Type: ARTERIAL BLOOD SPECIMENOrdering Facility: [facility] Address: [address] [place] [address] Performed By: #### A LLBG ####[facility] [id number] [place] [address] [place] Body temperature 98.6 [degF] Normal [facility] Comment on above: Order Comment: Speci men Type: ARTERIAL BLOOD SPECIMENOrdering Facility: [facility] Address: [address] [place] [address] Performed By: #### A LLBG ####[facility]IA [id number] [place] [address] [place] Calcium.ionized (Bld) [Mass/Vol] 1.18 mmol/L Normal 1.08-1.30 [facility] Comment on above: Order Comment: Speci men Type: ARTERIAL BLOOD SPECIMENOrdering Facility: [facility] Address: [address] [place] [address] Performed By: #### A LLBG ####[facility] [id number] [place] [address] [place] Calcium.ionized adjusted to pH 7.4 (BldA) [Moles/Vol] 1.15 mmol/L Normal 1.08-1.30 [facility] Comment on above: Order Comment: Speci men Type: ARTERIAL BLOOD SPECIMENOrdering Facility: [facility] Address: [address] [place] [address] Performed By: #### A LLBG ####[facility] LABIA [id number] [place] [address] [place] Carboxyhemoglobin (BldA) [Mass fraction] 2.0 % Normal 0.0-2.0 [facility] Comment on above: Order Comment: Speci men Type: ARTERIAL BLOOD SPECIMENOrdering Facility: [facility] Address: [address] [place] [address] Result Comment: Carb oxyhemoglobin Reference Range for Smokers: 2.0-8.0% Performed By: #### A LLBG ####[facility] LABCLIA [id number] [place] [address] [place] CO2 (Bld) [Partial pressure] 49 mm Hg High 36-46 [facility] Comment on above: Order Comment: Speci men Type: ARTERIAL BLOOD SPECIMENOrdering Facility: [facility] Address: [address] [place] [address] Performed By: #### A LLBG ####[facility] LABCLIA [id number] [place] [address] [place] Glucose [Mass/Vol] 145 mg/dL High 60-105 [facility] Comment on above: Order Comment: Speci men Type: ARTERIAL BLOOD SPECIMENOrdering Facility: [facility] Address: [address] [place] [address] Performed By: #### A LLBG ####[facility] LABCLIA [id number] [place] [address] [place] HCO3 (Bld) [Moles/Vol] 27 mmol/L High 22-26 [facility] Comment on above: Order Comment: Speci men Type: ARTERIAL BLOOD SPECIMENOrdering Facility: [facility] Address: [address] [place] [address] Performed By: #### A LLBG ####[facility] LABCLIA [id number] [place] [address] [place] Hematocrit (Bld) [Volume fraction] 32.0 % Low 39.0-51.0 [facility] Comment on above: Order Comment: Speci men Type: ARTERIAL BLOOD SPECIMENOrdering Facility: [facility] Address: [address] [place] [address] Performed By: #### A LLBG ####[facility]CLIA [id number] [place] [address] [place] Hemoglobin (Bld) [Mass/Vol] 10.4 g/dL Low 13.0-17.0 [facility] Comment on above: Order Comment: Speci men Type: ARTERIAL BLOOD SPECIMENOrdering Facility: [facility] Address: [address] [place] [address] Performed By: #### A LLBG ####[facility] LABCLIA [id number] [place] [address] [place] Lactate [Moles/Vol] 0.8 mmol/L Normal 0.5-2.2 [facility] Comment on above: Order Comment: Speci men Type: ARTERIAL BLOOD SPECIMENOrdering Facility: [facility] Address: [address] [place] [address] Performed By: #### A LLBG ####[facility] LABCLIA [id number] [place] [address] [place] LITERS 1 Liters/min Normal [facility] Comment on above: Order Comment: Speci men Type: ARTERIAL BLOOD SPECIMENOrdering Facility: [facility] Address: [address] [place] [address] Performed By: #### A LLBG ####[facility] LABCLIA [id number] [place] [address] [place] Methemoglobin (Bld) [Mass fraction] 1.4 % Normal 0.0-1.5 [facility] Comment on above: Order Comment: Speci men Type: ARTERIAL BLOOD SPECIMENOrdering Facility: [facility] Address: [address] [place] [address] Performed By: #### A LLBG ####[facility] LABCLIA [id number] [place] [address] [place] O2 THERAPY NC = Nasal Cannula Normal [facility] Comment on above: Order Comment: Speci men Type: ARTERIAL BLOOD SPECIMENOrdering Facility: [facility] Address: [address] [place] [address] Performed By: #### A LLBG ####[facility] LABCLIA [id number] [place] [address] [place] Oxygen (Bld) [Partial pressure] 99 mm Hg High 85-95 [facility] Comment on above: Order Comment: Speci men Type: ARTERIAL BLOOD SPECIMENOrdering Facility: [facility] Address: [address] [place] [address] Performed By: #### A LLBG ####[facility] LABCLIA [id number] [place] [address] [place] Oxyhemoglobin (BldA) [Mass fraction] 95 % Normal 95-98 [facility] Comment on above: Order Comment: Speci men Type: ARTERIAL BLOOD SPECIMENOrdering Facility: [facility] Address: [address] [place] [address] Performed By: #### A LLBG ####[facility]CLIA [id number] [place] [address] [place] pH (Bld) 7.35 [pH] Normal 7.35-7.45 [facility] Comment on above: Order Comment: Speci men Type: ARTERIAL BLOOD SPECIMENOrdering Facility: [facility] Address: [address] [place] [address] Performed By: #### A LLBG ####[facility] LABCLIA [id number] [place] [address] [place] Potassium [Moles/Vol] 4.1 mmol/L Normal 3.5-5.0 [facility] Comment on above: Order Comment: Speci men Type: ARTERIAL BLOOD SPECIMENOrdering Facility: [facility] Address: [address] [place] [address] Performed By: #### A LLBG ####[facility]CLIA [id number] [place] [address] [place] Sodium [Moles/Vol] 137 mmol/L Normal 136-144 [facility] Comment on above: Order Comment: Speci men Type: ARTERIAL BLOOD SPECIMENOrdering Facility: [facility] Address: [address] [place] [address] Performed By: #### A LLBG ####[facility] LABCLIA [id number] [place] [address] [place] Base excess Calc (Bld) [Moles/Vol] 0 mmol/L Normal 0-2 [facility] Comment on above: Order Comment: Speci men Type: ARTERIAL BLOOD SPECIMENOrdering Facility: [facility] Address: [address] [place] [address] Performed By: #### A LLBG ####[facility] [id number] [place] [address] [place] Body temperature 98.6 [degF] Normal [facility] Comment on above: Order Comment: Speci men Type: ARTERIAL BLOOD SPECIMENOrdering Facility: [facility] Address: [address] [place] [address] Performed By: #### A LLBG ####[facility] LABCL[facility] [id number] [place] [address] [place] Calcium.ionized (Bld) [Mass/Vol] 1.15 mmol/L Normal 1.08-1.30 [facility] Comment on above: Order Comment: Speci men Type: ARTERIAL BLOOD SPECIMENOrdering Facility: [facility] Address: [address] [place] [address] Performed By: #### A LLBG ####[facility] [id number] [place] [address] [place] Calcium.ionized adjusted to pH 7.4 (BldA) [Moles/Vol] 1.14 mmol/L Normal 1.08-1.30 [facility] Comment on above: Order Comment: Speci men Type: ARTERIAL BLOOD SPECIMENOrdering Facility: [facility] Address: [address] [place] [address] Performed By: #### A LLBG ####[facility] LABCLIA [id number] [place] [address] [place] Carboxyhemoglobin (BldA) [Mass fraction] 1.9 % Normal 0.0-2.0 [facility] Comment on above: Order Comment: Speci men Type: ARTERIAL BLOOD SPECIMENOrdering Facility: [facility] Address: [address] [place] [address] Result Comment: Carb oxyhemoglobin Reference Range for Smokers: 2.0-8.0% Performed By: #### A LLBG ####[facility]CL[facility] [id number] [place] [address] [place] CO2 (Bld) [Partial pressure] 43 mm Hg Normal 36-46 [facility] Comment on above: Order Comment: Speci men Type: ARTERIAL BLOOD SPECIMENOrdering Facility: [facility] Address: [address] [place] [address] Performed By: #### A LLBG ####[facility]CLIA [id number] [place] [address] [place] Glucose [Mass/Vol] 145 mg/dL High 60-105 [facility] Comment on above: Order Comment: Speci men Type: ARTERIAL BLOOD SPECIMENOrdering Facility: [facility] Address: [address] [place] [address] Performed By: #### A LLBG ####[facility]CL[facility] [id number] [place] [address] [place] HCO3 (Bld) [Moles/Vol] 25 mmol/L Normal 22-26 [facility] Comment on above: Order Comment: Speci men Type: ARTERIAL BLOOD SPECIMENOrdering Facility: [facility] Address: [address] [place] [address] Performed By: #### A LLBG ####[facility]CL[facility] [id number] [place] [address] [place] Hematocrit (Bld) [Volume fraction] 30.8 % Low 39.0-51.0 [facility] Comment on above: Order Comment: Speci men Type: ARTERIAL BLOOD SPECIMENOrdering Facility: [facility] Address: [address] [place] [address] Performed By: #### A LLBG ####[facility]CL[facility] [id number] [place] [address] [place] Hemoglobin (Bld) [Mass/Vol] 9.9 g/dL Low 13.0-17.0 [facility] Comment on above: Order Comment: Speci men Type: ARTERIAL BLOOD SPECIMENOrdering Facility: [facility] Address: [address] [place] [address] Performed By: #### A LLBG ####[facility]CL[facility] [id number] [place] [address] [place] Lactate [Moles/Vol] 0.7 mmol/L Normal 0.5-2.2 [facility] Comment on above: Order Comment: Speci men Type: ARTERIAL BLOOD SPECIMENOrdering Facility: [facility] Address: [address] [place] [address] Performed By: #### A LLBG ####[facility]CL[facility] [id number] [place] [address] [place] LITERS 2 Liters/min Normal [facility] Comment on above: Order Comment: Speci men Type: ARTERIAL BLOOD SPECIMENOrdering Facility: [facility] Address: [address] [place] [address] Performed By: #### A LLBG ####[facility] [id number] [place] [address] [place] Methemoglobin (Bld) [Mass fraction] 0.4 % Normal 0.0-1.5 [facility] Comment on above: Order Comment: Speci men Type: ARTERIAL BLOOD SPECIMENOrdering Facility: [facility] Address: [address] [place] [address] Performed By: #### A LLBG ####[facility] [id number] [place] [address] [place] O2 THERAPY NC = Nasal Cannula Normal [facility] Comment on above: Order Comment: Speci men Type: ARTERIAL BLOOD SPECIMENOrdering Facility: [facility] Address: [address] [place] [address] Performed By: #### A LLBG ####[facility]CL[facility] [id number] [place] [address] [place] Oxygen (Bld) [Partial pressure] 140 mm Hg High 85-95 [facility] Comment on above: Order Comment: Speci men Type: ARTERIAL BLOOD SPECIMENOrdering Facility: [facility] Address: [address] [place] [address] Performed By: #### A LLBG ####[facility]CL[facility] [id number] [place] [address] [place] Oxyhemoglobin (BldA) [Mass fraction] 97 % Normal 95-98 [facility] Comment on above: Order Comment: Speci men Type: ARTERIAL BLOOD SPECIMENOrdering Facility: [facility] Address: [address] [place] [address] Performed By: #### A LLBG ####[facility] [id number] [place] [address] [place] pH (Bld) 7.38 [pH] Normal 7.35-7.45 [facility] [facility] Comment on above: Order Comment: Speci men Type: ARTERIAL BLOOD SPECIMENOrdering Facility: [facility] Address: [address] [place] [address] Performed By: #### A LLBG ####[facility] LABCLIA [id number] [place] [address] [place] Potassium [Moles/Vol] 4.4 mmol/L Normal 3.5-5.0 [facility] Comment on above: Order Comment: Speci men Type: ARTERIAL BLOOD SPECIMENOrdering Facility: [facility] Address: [address] [place] [address] Performed By: #### A LLBG ####[facility] LABCLIA [id number] [place] [address] [place] Sodium [Moles/Vol] 137 mmol/L Normal 136-144 [facility] Comment on above: Order Comment: Speci men Type: ARTERIAL BLOOD SPECIMENOrdering Facility: [facility] Address: [address] [place] [address] Performed By: #### A LLBG ####[facility] LABCLIA [id number] [place] [address] [place] Base excess Calc (Bld) [Moles/Vol] 1 mmol/L Normal 0-2 [facility] Comment on above: Order Comment: Speci men Type: ARTERIAL BLOOD SPECIMENOrdering Facility: [facility] Address: [address] [place] [address] Performed By: #### A LLBG ####[facility] LABIA [id number] [place] [address] [place] Body temperature 97.88 [degF] Normal [facility] Comment on above: Order Comment: Speci men Type: ARTERIAL BLOOD SPECIMENOrdering Facility: [facility] Address: [address] [place] [address] Performed By: #### A LLBG ####[facility] LABCLIA [id number] [place] [address] [place] Calcium.ionized (Bld) [Mass/Vol] 1.15 mmol/L Normal 1.08-1.30 [facility] Comment on above: Order Comment: Speci men Type: ARTERIAL BLOOD SPECIMENOrdering Facility: [facility] Address: [address] [place] [address] Performed By: #### A LLBG ####[facility] LABCLIA [id number] [place] [id number] [place] Calcium.ionized adjusted to pH 7.4 (BldA) [Moles/Vol] 1.15 mmol/L Normal 1.08-1.30 [facility] Comment on above: Order Comment: Speci men Type: ARTERIAL BLOOD SPECIMENOrdering Facility: [facility] Address: [address] [place] [address] Performed By: #### A LLBG ####[facility] LABCLIA [id number] [place] [address] [place] Carboxyhemoglobin (BldA) [Mass fraction] 1.7 % Normal 0.0-2.0 [facility] Comment on above: Order Comment: Speci men Type: ARTERIAL BLOOD SPECIMENOrdering Facility: [facility] Address: [address] [place] [address] Result Comment: Carb oxyhemoglobin Reference Range for Smokers: 2.0-8.0% Performed By: #### A LLBG ####[facility] LABCLIA [id number] [place] [address] [place] CO2 (Bld) [Partial pressure] 42 mm Hg Normal 36-46 [facility] Comment on above: Order Comment: Speci men Type: ARTERIAL BLOOD SPECIMENOrdering Facility: [facility] Address: [address] [place] [address] Performed By: #### A LLBG ####[facility] LABCLIA [id number] [place] [address] [place] CO2 adjusted to patient's actual temperature (Bld) [Partial pressure] 41 mmHg Normal 36-46 [facility] Comment on above: Order Comment: Speci men Type: ARTERIAL BLOOD SPECIMENOrdering Facility: [facility] Address: [address] [place] [address] Performed By: #### A LLBG ####[facility] LABCLIA [id number] [place] [address] [place] Glucose [Mass/Vol] 120 mg/dL High 60-105 [facility] Comment on above: Order Comment: Speci men Type: ARTERIAL BLOOD SPECIMENOrdering Facility: [facility] Address: [address] [place] [address] Performed By: #### A LLBG ####[facility] LABCLIA [id number] [place] [address] [place] HCO3 (Bld) [Moles/Vol] 26 mmol/L Normal 22-26 [facility] Comment on above: Order Comment: Speci men Type: ARTERIAL BLOOD SPECIMENOrdering Facility: [facility] Address: [address] [place] [address] Performed By: #### A LLBG ####[facility] LABIA [id number] [place] [address] [place] Hematocrit (Bld) [Volume fraction] 30.5 % Low 39.0-51.0 [facility] Comment on above: Order Comment: Speci men Type: ARTERIAL BLOOD SPECIMENOrdering Facility: [facility] Address: [address] [place] [address] Performed By: #### A LLBG ####[facility] LABIA [id number] [place] [address] [place] Hemoglobin (Bld) [Mass/Vol] 9.8 g/dL Low 13.0-17.0 [facility] Comment on above: Order Comment: Speci men Type: ARTERIAL BLOOD SPECIMENOrdering Facility: [facility] Address: [address] [place] [address] Performed By: #### A LLBG ####[facility] LABIA [id number] [place] [address] [place] Lactate [Moles/Vol] 0.6 mmol/L Normal 0.5-2.2 [facility] Comment on above: Order Comment: Speci men Type: ARTERIAL BLOOD SPECIMENOrdering Facility: [facility] Address: [address] [place] [address] Performed By: #### A LLBG ####[facility] LABCLIA [id number] [address] [address] [place] LITERS 2 Liters/min Normal [facility] Comment on above: Order Comment: Speci men Type: ARTERIAL BLOOD SPECIMENOrdering Facility: [facility] Address: [address] [place] [address] Performed By: #### A LLBG ####[facility] LABCLIA [id number] [place] [address] [place] Methemoglobin (Bld) [Mass fraction] 1.0 % Normal 0.0-1.5 [facility] Comment on above: Order Comment: Speci men Type: ARTERIAL BLOOD SPECIMENOrdering Facility: [facility] Address: [address] [place] [address] Performed By: #### A LLBG ####[facility] LABCLIA [id number] [place] [address] [place] O2 THERAPY NC = Nasal Cannula Normal [facility] Comment on above: Order Comment: Speci men Type: ARTERIAL BLOOD SPECIMENOrdering Facility: [facility] Address: [address] [place] [address] Performed By: #### A LLBG ####[facility] LABCLIA [id number] [address] [address] [place] Oxygen (Bld) [Partial pressure] 99 mm Hg High 85-95 [facility] Comment on above: Order Comment: Speci men Type: ARTERIAL BLOOD SPECIMENOrdering Facility: [facility] Address: [address] [place] [id number] Performed By: #### A LLBG ####[facility] LABCLIA [id number] [place] [address] [place] Oxygen adjusted to patient's actual temperature (Bld) [Partial pressure] 97 mmHg High 85-95 [facility] Comment on above: Order Comment: Speci men Type: ARTERIAL BLOOD SPECIMENOrdering Facility: [facility] Address: [address] [place] [address] Performed By: #### A LLBG ####[facility] LABCLIA [id number] [place] [address] [place] Oxyhemoglobin (BldA) [Mass fraction] 95 % Normal 95-98 [facility] Comment on above: Order Comment: Speci men Type: ARTERIAL BLOOD SPECIMENOrdering Facility: [facility] Address: [address] [place] [address] Performed By: #### A LLBG ####[facility] LABIA [id number] [place] [address] [place] pH (Bld) 7.41 [pH] Normal 7.35-7.45 [facility] Comment on above: Order Comment: Speci men Type: ARTERIAL BLOOD SPECIMENOrdering Facility: [facility] Address: [address] [place] [address] Performed By: #### A LLBG ####[facility] LABIA [id number] [place] [address] [place] pH adjusted to patient's actual temperature (Bld) 7.41 Normal 7.35-7.45 [facility] Comment on above: Order Comment: Speci men Type: ARTERIAL BLOOD SPECIMENOrdering Facility: [facility] Address: [address] [place] [address] Performed By: #### A LLBG ####[facility] LABIA [id number] [place] [address] [place] Potassium [Moles/Vol] 4.2 mmol/L Normal 3.5-5.0 [facility] Comment on above: Order Comment: Speci men Type: ARTERIAL BLOOD SPECIMENOrdering Facility: [facility] Address: [address] [place] [address] Performed By: #### A LLBG ####[facility] LABIA [id number] [place] [address] [place] Sodium [Moles/Vol] 137 mmol/L Normal 136-144 [facility] Comment on above: Order Comment: Speci men Type: ARTERIAL BLOOD SPECIMENOrdering Facility: [facility] Address: [address] [place] [address] Performed By: #### A LLBG ####[facility] LABCLIA [id number] [place] [address] [place] Base excess Calc (Bld) [Moles/Vol] 1 mmol/L Normal 0-2 [facility] Comment on above: Order Comment: Speci men Type: ARTERIAL BLOOD SPECIMENOrdering Facility: [facility] Address: [address] [place] [address] Performed By: #### A LLBG ####[facility] LABCLIA [id number] [place] [address] [place] Body temperature 98.24 [degF] Normal [facility] Comment on above: Order Comment: Speci men Type: ARTERIAL BLOOD SPECIMENOrdering Facility: [facility] Address: [address] [place] [address] Performed By: #### A LLBG ####[facility] LABCLIA [id number] [place] [address] [place] Calcium.ionized (Bld) [Mass/Vol] 1.18 mmol/L Normal 1.08-1.30 [facility] Comment on above: Order Comment: Speci men Type: ARTERIAL BLOOD SPECIMENOrdering Facility: [facility] Address: [address] [place] [address] Performed By: #### A LLBG ####[facility] LABCLIA [id number] [place] [address] [place] Calcium.ionized adjusted to pH 7.4 (BldA) [Moles/Vol] 1.17 mmol/L Normal 1.08-1.30 [facility] Comment on above: Order Comment: Speci men Type: ARTERIAL BLOOD SPECIMENOrdering Facility: [facility] Address: [address] [place] [address] Performed By: #### A LLBG ####[facility] LABCLIA [id number] [place] [address] [place] Carboxyhemoglobin (BldA) [Mass fraction] 2.2 % High 0.0-2.0 [facility] Comment on above: Order Comment: Speci men Type: ARTERIAL BLOOD SPECIMENOrdering Facility: [facility] Address: [address] [place] [address] Result Comment: Carb oxyhemoglobin Reference Range for Smokers: 2.0-8.0% Performed By: #### A LLBG ####[facility] LABCLIA [id number] [place] [address] [place] CO2 (Bld) [Partial pressure] 44 mm Hg Normal 36-46 [facility] Comment on above: Order Comment: Speci men Type: ARTERIAL BLOOD SPECIMENOrdering Facility: [facility] Address: [address] [place] [address] Performed By: #### A LLBG ####[facility] LABCLIA [id number] [place] [address] [place] CO2 adjusted to patient's actual temperature (Bld) [Partial pressure] 44 mmHg Normal 36-46 [facility] Comment on above: Order Comment: Speci men Type: ARTERIAL BLOOD SPECIMENOrdering Facility: [facility] Address: [address] [place] [address] Performed By: #### A LLBG ####[facility] LABCLIA [id number] [place] [address] [place] Glucose [Mass/Vol] 140 mg/dL High 60-105 [facility] Comment on above: Order Comment: Speci men Type: ARTERIAL BLOOD SPECIMENOrdering Facility: [facility] Address: [address] [place] [address] Performed By: #### A LLBG ####[facility] LABCLIA [id number] [place] [address] [place] HCO3 (Bld) [Moles/Vol] 26 mmol/L Normal 22-26 [facility] Comment on above: Order Comment: Speci men Type: ARTERIAL BLOOD SPECIMENOrdering Facility: [facility] Address: [address] [place] [address] Performed By: #### A LLBG ####[facility] LABCLIA [id number] [place] [address] [place] Hematocrit (Bld) [Volume fraction] 30.5 % Low 39.0-51.0 [facility] Comment on above: Order Comment: Speci men Type: ARTERIAL BLOOD SPECIMENOrdering Facility: [facility] Address: [address] [place] [address] Performed By: #### A LLBG ####[facility] LABCLIA [id number] [place] [address] [place] Hemoglobin (Bld) [Mass/Vol] 9.8 g/dL Low 13.0-17.0 [facility] Comment on above: Order Comment: Speci men Type: ARTERIAL BLOOD SPECIMENOrdering Facility: [facility] Address: [address] [place] [address] Performed By: #### A LLBG ####[facility] LABCLIA [id number] [place] [address] [place] Lactate [Moles/Vol] 0.8 mmol/L Normal 0.5-2.2 [facility] Comment on above: Order Comment: Speci men Type: ARTERIAL BLOOD SPECIMENOrdering Facility: [facility] Address: [address] [place] [address] Performed By: #### A LLBG ####[facility] LABCLIA [id number] [place] [address] [place] LITERS 3 Liters/min Normal [facility] Comment on above: Order Comment: Speci men Type: ARTERIAL BLOOD SPECIMENOrdering Facility: [facility] Address: [address] [place] [address] Result Comment: ` Performed By: #### A LLBG ####[facility] LABCLIA [id number] [place] [address] [place] Methemoglobin (Bld) [Mass fraction] 1.0 % Normal 0.0-1.5 [facility] Comment on above: Order Comment: Speci men Type: ARTERIAL BLOOD SPECIMENOrdering Facility: [facility] Address: [address] [place] [address] Performed By: #### A LLBG ####[facility] LABCLIA [id number] [place] [address] [place] O2 THERAPY NC = Nasal Cannula Normal [facility] Comment on above: Order Comment: Speci men Type: ARTERIAL BLOOD SPECIMENOrdering Facility: [facility] Address: [address] [place] [address] Performed By: #### A LLBG ####[facility] LABCLIA [id number] [place] [address] [place] Oxygen (Bld) [Partial pressure] 121 mm Hg High 85-95 [facility] Comment on above: Order Comment: Speci men Type: ARTERIAL BLOOD SPECIMENOrdering Facility: [facility] Address: [address] [place] [address] Performed By: #### A LLBG ####[facility] LABCLIA [id number] [place] [address] [place] Oxygen adjusted to patient's actual temperature (Bld) [Partial pressure] 120 mmHg High 85-95 [facility] Comment on above: Order Comment: Speci men Type: ARTERIAL BLOOD SPECIMENOrdering Facility: [facility] Address: [address] [place] [address] Performed By: #### A LLBG ####[facility] LABCLIA [id number] [place] [address] [place] Oxyhemoglobin (BldA) [Mass fraction] 96 % Normal 95-98 [facility] Comment on above: Order Comment: Speci men Type: ARTERIAL BLOOD SPECIMENOrdering Facility: [facility] Address: [address] [place] [address] Performed By: #### A LLBG ####[facility] LABCLIA [id number] [place] [address] [place] pH (Bld) 7.38 [pH] Normal 7.35-7.45 [facility] Comment on above: Order Comment: Speci men Type: ARTERIAL BLOOD SPECIMENOrdering Facility: [facility] Address: [address] [place] [address] Performed By: #### A LLBG ####[facility] LABIA [id number] [place] [address] [place] pH adjusted to patient's actual temperature (Bld) 7.38 Normal 7.35-7.45 [facility] Comment on above: Order Comment: Speci men Type: ARTERIAL BLOOD SPECIMENOrdering Facility: [facility] Address: [address] [place] [address] Performed By: #### A LLBG ####[facility] LABCLIA [id number] [place] [address] [place] Potassium [Moles/Vol] 3.9 mmol/L Normal 3.5-5.0 [facility] Comment on above: Order Comment: Speci men Type: ARTERIAL BLOOD SPECIMENOrdering Facility: [facility] Address: [address] [place] [address] Performed By: #### A LLBG ####[facility] LABIA [id number] [place] [address] [place] Sodium [Moles/Vol] 137 mmol/L Normal 136-144 [facility] Comment on above: Order Comment: Speci men Type: ARTERIAL BLOOD SPECIMENOrdering Facility: [facility] Address: [address] [place] [address] Performed By: #### A LLBG ####[facility] LABIA [id number] [place] [address] [place] Base deficit (BldA) [Moles/Vol] -1 mmol/L Normal -2-0 [facility] Comment on above: Order Comment: Speci men Type: ARTERIAL BLOOD SPECIMENOrdering Facility: [facility] Address: [address] [place] [address] Performed By: #### A LLBG ####[facility] LABIA [id number] [place] [address] [place] Body temperature 98.24 [degF] Normal [facility] Comment on above: Order Comment: Speci men Type: ARTERIAL BLOOD SPECIMENOrdering Facility: [facility] Address: [address] [place] [address] Performed By: #### A LLBG ####[facility] [id number] [place] [address] [place] Calcium.ionized (Bld) [Mass/Vol] 1.15 mmol/L Normal 1.08-1.30 [facility] Comment on above: Order Comment: Speci men Type: ARTERIAL BLOOD SPECIMENOrdering Facility: [facility] Address: [address] [place] [address] Performed By: #### A LLBG ####[facility] [id number] [place] [address] [place] Calcium.ionized adjusted to pH 7.4 (BldA) [Moles/Vol] 1.14 mmol/L Normal 1.08-1.30 [facility] Comment on above: Order Comment: Speci men Type: ARTERIAL BLOOD SPECIMENOrdering Facility: [facility] Address: [address] [place] [address] Performed By: #### A LLBG ####[facility] [id number] [place] [address] [place] Carboxyhemoglobin (BldA) [Mass fraction] 1.6 % Normal 0.0-2.0 [facility] Comment on above: Order Comment: Speci men Type: ARTERIAL BLOOD SPECIMENOrdering Facility: [facility] Address: [address] [place] [address] Result Comment: Carb oxyhemoglobin Reference Range for Smokers: 2.0-8.0% Performed By: #### A LLBG ####[facility] LABCLIA [id number] [place] [address] [place] CO2 (Bld) [Partial pressure] 41 mm Hg Normal 36-46 [facility] Comment on above: Order Comment: Speci men Type: ARTERIAL BLOOD SPECIMENOrdering Facility: [facility] Address: [address] [place] [address] Performed By: #### A LLBG ####[facility] LABCLIA [id number] [place] [address] [place] CO2 adjusted to patient's actual temperature (Bld) [Partial pressure] 41 mmHg Normal 36-46 [facility] Comment on above: Order Comment: Speci men Type: ARTERIAL BLOOD SPECIMENOrdering Facility: [facility] Address: [address] [place] [address] Performed By: #### A LLBG ####[facility] LABCLIA [id number] [place] [address] [place] Glucose [Mass/Vol] 176 mg/dL High 60-105 [facility] Comment on above: Order Comment: Speci men Type: ARTERIAL BLOOD SPECIMENOrdering Facility: [facility] Address: [address] [place] [address] Performed By: #### A LLBG ####[facility] LABCLIA [id number] [place] [address] [place] HCO3 (Bld) [Moles/Vol] 24 mmol/L Normal 22-26 [facility] Comment on above: Order Comment: Speci men Type: ARTERIAL BLOOD SPECIMENOrdering Facility: [facility] Address: [address] [place] [address] Performed By: #### A LLBG ####[facility] LABIA [id number] [place] [address] [place] Hematocrit (Bld) [Volume fraction] 29.0 % Low 39.0-51.0 [facility] Comment on above: Order Comment: Speci men Type: ARTERIAL BLOOD SPECIMENOrdering Facility: [facility] Address: [address] [place] [address] Performed By: #### A LLBG ####[facility] LABIA [id number] [place] [address] [place] Hemoglobin (Bld) [Mass/Vol] 9.4 g/dL Low 13.0-17.0 [facility] Comment on above: Order Comment: Speci men Type: ARTERIAL BLOOD SPECIMENOrdering Facility: [facility] Address: [address] [place] [address] Performed By: #### A LLBG ####[facility] LABIA [id number] [place] [address] [place] Lactate [Moles/Vol] 0.7 mmol/L Normal 0.5-2.2 [facility] Comment on above: Order Comment: Speci men Type: ARTERIAL BLOOD SPECIMENOrdering Facility: [facility] Address: [address] [place] [address] Performed By: #### A LLBG ####[facility] LABIA [id number] [place] [address] [place] LITERS 4 Liters/min Normal [facility] Comment on above: Order Comment: Speci men Type: ARTERIAL BLOOD SPECIMENOrdering Facility: [facility] Address: [address] [place] [address] Performed By: #### A LLBG ####[facility] LABIA [id number] [place] [address] [place] Methemoglobin (Bld) [Mass fraction] 0.8 % Normal 0.0-1.5 [facility] Comment on above: Order Comment: Speci men Type: ARTERIAL BLOOD SPECIMENOrdering Facility: [facility] Address: [address] [place] [address] Performed By: #### A LLBG ####[facility] LABCLIA [id number] [place] [address] [place] O2 THERAPY NC = Nasal Cannula Normal [facility] Comment on above: Order Comment: Speci men Type: ARTERIAL BLOOD SPECIMENOrdering Facility: [facility] Address: [address] [place] [address] Performed By: #### A LLBG ####[facility] LABCLIA [id number] [place] [address] [place] Oxygen (Bld) [Partial pressure] 147 mm Hg High 85-95 [facility] Comment on above: Order Comment: Speci men Type: ARTERIAL BLOOD SPECIMENOrdering Facility: [facility] Address: [address] [place] [address] Performed By: #### A LLBG ####[facility] LABCLIA [id number] [place] [address] [place] Oxygen adjusted to patient's actual temperature (Bld) [Partial pressure] 146 mmHg High 85-95 [facility] Comment on above: Order Comment: Speci men Type: ARTERIAL BLOOD SPECIMENOrdering Facility: [facility] Address: [address] [place] [address] Performed By: #### A LLBG ####[facility] LABCLIA [id number] [place] [address] [place] Oxyhemoglobin (BldA) [Mass fraction] 97 % Normal 95-98 [facility] Comment on above: Order Comment: Speci men Type: ARTERIAL BLOOD SPECIMENOrdering Facility: [facility] Address: [address] [place] [address] Performed By: #### A LLBG ####[facility] LABCLIA [id number] [place] [address] [place] pH (Bld) 7.38 [pH] Normal 7.35-7.45 [facility] Comment on above: Order Comment: Speci men Type: ARTERIAL BLOOD SPECIMENOrdering Facility: [facility] Address: [address] [place] [address] Performed By: #### A LLBG ####[facility] LABCLIA [id number] [place] [address] [place] pH adjusted to patient's actual temperature (Bld) 7.38 Normal 7.35-7.45 [facility] Comment on above: Order Comment: Speci men Type: ARTERIAL BLOOD SPECIMENOrdering Facility: [facility] Address: [address] [place] [address] Performed By: #### A LLBG ####[facility] LABCLIA [id number] [place] [address] [place] Potassium [Moles/Vol] 4.1 mmol/L Normal 3.5-5.0 [facility] Comment on above: Order Comment: Speci men Type: ARTERIAL BLOOD SPECIMENOrdering Facility: [facility] Address: [address] [place] [address] Performed By: #### A LLBG ####[facility] LABCLIA [id number] [place] [address] [place] Sodium [Moles/Vol] 137 mmol/L Normal 136-144 [facility] Comment on above: Order Comment: Speci men Type: ARTERIAL BLOOD SPECIMENOrdering Facility: [facility] Address: [address] [place] [address] Performed By: #### A LLBG ####[facility] LABCLIA [id number] [place] [address] [place] CASE MGT INIT ASSESon 2022 CASE MGT INIT ASSES Normal [facility] CBC panel Auto (Bld)on 10-29 Erythrocyte distribution width (RBC) [Ratio] 16.8 % High 11.5-15.0 [facility] Comment on above: Order Comment: Speci men Type: BLOOD SPECIMENOrdering Facility: [facility] Address: [address] [place] [address] Performed By: #### 5 8410-2 ####[facility] LABCLIA [id number] [place] [address] [place] Hematocrit (Bld) [Volume fraction] 30.4 % Low 39.0-51.0 [facility] Comment on above: Order Comment: Speci men Type: BLOOD SPECIMENOrdering Facility: [facility] Address: [address] [place] [address] Performed By: #### 5 8410-2 ####[facility] LABCLIA [id number] [place] [address] [place] Hemoglobin (Bld) [Mass/Vol] 9.5 g/dL Low 13.0-17.0 [facility] Comment on above: Order Comment: Speci men Type: BLOOD SPECIMENOrdering Facility: [facility] Address: [address] [place] [address] Performed By: #### 5 8410-2 ####[facility] LABCLIA [id number] [place] [address] [place] MCH (RBC) [Entitic mass] 26.5 pg Normal 26.0-34.0 [facility] Comment on above: Order Comment: Speci men Type: BLOOD SPECIMENOrdering Facility: [facility] Address: [address] [place] [address] Performed By: #### 5 8410-2 ####[facility] LABCLIA [id number] [place] [address] [place] MCHC (RBC) [Mass/Vol] 31.3 g/dL Normal 30.5-36.0 [facility] Comment on above: Order Comment: Speci men Type: BLOOD SPECIMENOrdering Facility: [facility] Address: [address] [place] [address] Performed By: #### 5 8410-2 ####[facility] LABCLIA [id number] [place] [address] [place] MCV (RBC) [Entitic vol] 84.9 fL Normal 80.0-100.0 [facility] Comment on above: Order Comment: Speci men Type: BLOOD SPECIMENOrdering Facility: [facility] Address: [address] [place] [address] Performed By: #### 5 8410-2 ####[facility] LABIA [id number] [place] [address] [place] Nucleated RBC (Bld) [#/Vol] 10*3/uL Normal <0.01 [facility] Comment on above: Order Comment: Speci men Type: BLOOD SPECIMENOrdering Facility: [facility] Address: [address] [place] [address] Performed By: #### 5 8410-2 ####[facility] LABIA [id number] [place] [address] [place] Platelet mean volume (Bld) [Entitic vol] 11.7 fL Normal 9.0-12.7 [facility] Comment on above: Order Comment: Speci men Type: BLOOD SPECIMENOrdering Facility: [facility] Address: [address] [place] [address] Performed By: #### 5 8410-2 ####[facility] LABCLIA [id number] [place] [address] [place] Platelets (Bld) [#/Vol] 143 10*3/uL Low 150-400 [facility] Comment on above: Order Comment: Speci men Type: BLOOD SPECIMENOrdering Facility: [facility] Address: [address] [place] [address] Performed By: #### 5 8410-2 ####[facility] LABCLIA [id number] [place] [address] [place] RBC (Bld) [#/Vol] 3.58 10*6/uL Low 4.20-6.00 [facility] Comment on above: Order Comment: Speci men Type: BLOOD SPECIMENOrdering Facility: [facility] Address: [address] [place] [address] Performed By: #### 5 8410-2 ####[facility] LABCLIA [id number] [place] [address] [place] WBC (Bld) [#/Vol] 14.44 10*3/uL High 3.70-11.00 [facility] Comment on above: Order Comment: Speci men Type: BLOOD SPECIMENOrdering Facility: [facility] Address: [address] [place] [address] Performed By: #### 5 8410-2 ####[facility] LABCLIA [id number] [place] [address] [place] Comprehensive metabolic 2000 panelon 10-29-2023 Albumin [Mass/Vol] 3.6 g/dL Low 3.9-4.9 [facility] Comment on above: Order Comment: Speci men Type: BLOOD SPECIMENOrdering Facility: [facility] Address: [address] [place] [address] Performed By: #### H STNT, 92920-8 ####[facility] LABIA [id number] [place] [address] [place] ALP [Catalytic activity/Vol] 57 U/L Normal 38-113 [facility] Comment on above: Order Comment: Speci men Type: BLOOD SPECIMENOrdering Facility: [facility] Address: [address] [place] [address] Performed By: #### H STNT, 68936-7 ####[facility] LABCLIA [id number] [place] [address] [place] ALT [Catalytic activity/Vol] 14 U/L Normal 10-54 [facility] Comment on above: Order Comment: Speci men Type: BLOOD SPECIMENOrdering Facility: [facility] Address: [address] [place] [address] Performed By: #### H STNT, 95135-1 ####[facility] LABCLIA [id number] [place] [address] [place] Anion gap [Moles/Vol] 11 mmol/L Normal 9-18 [facility] Comment on above: Order Comment: Speci men Type: BLOOD SPECIMENOrdering Facility: [facility] Address: [address] [place] [address] Performed By: #### H STNT, ####[facility] LABCLIA [id number] [place] [address] [place] AST [Catalytic activity/Vol] 28 U/L Normal 14-40 [facility] Comment on above: Order Comment: Speci men Type: BLOOD SPECIMENOrdering Facility: [facility] Address: [address] [place] [address] Performed By: #### H STNT, 15141-0 ####[facility] LABCLIA [id number] [place] [address] [place] Bilirubin [Mass/Vol] 0.6 mg/dL Normal 0.2-1.3 [facility] Comment on above: Order Comment: Speci men Type: BLOOD SPECIMENOrdering Facility: [facility] Address: [address] [place] [address] Performed By: #### H STNT, ####[facility] LABCLIA [id number] [place] [address] [place] Calcium [Mass/Vol] 8.3 mg/dL Low 8.5-10.2 [facility] Comment on above: Order Comment: Speci men Type: BLOOD SPECIMENOrdering Facility: [facility] Address: [address] [place] [address] Performed By: #### H STNT, 99914-3 ####[facility] LABCLIA [id number] [address] [address] [place] Chloride [Moles/Vol] 104 mmol/L Normal 97-105 [facility] Comment on above: Order Comment: Speci men Type: BLOOD SPECIMENOrdering Facility: [facility] Address: [address] [place] [address] Performed By: #### H STNT, 09255-8 ####[facility] LABCLIA [id number] [place] [address] [place] CO2 [Moles/Vol] 23 mmol/L Normal 22-30 [facility] Comment on above: Order Comment: Speci men Type: BLOOD SPECIMENOrdering Facility: [facility] Address: [address] [place] [address] Performed By: #### H STNT, 35697-5 ####[facility] LABIA [id number] [place] [address] [place] Creatinine [Mass/Vol] 1.14 mg/dL Normal 0.73-1.22 [facility] Comment on above: Order Comment: Speci men Type: BLOOD SPECIMENOrdering Facility: [facility] Address: [address] [place] [address] Performed By: #### H STNT, 81174-7 ####[facility] LABIA [id number] [place] [address] [place] Creatinine and Glomerular filtration rate.predicted panel (S/P/Bld) 71 mL/min/1.73m??? Normal >=60 [facility] Comment on above: Order Comment: Speci men Type: BLOOD SPECIMENOrdering Facility: [facility] Address: [address] [place] [address] Result Comment: Gisselle mated Glomerular Filtration Rate (eGFR) is calculated using the 2020 CKD-EPI creatinine equation. This equation utilizes serum creatinine, sex, and age as parameters. The creatinine assay has traceable calibration to isotope dilution-mass spectrometry. Refer to KDIGO guidelines for clinical interpretation. In patients with unstable renal function, e.g. those with acute kidney injury, the eGFR may not accurately reflect actual GFR. Performed By: #### H SASCHA, 00881-2 ####[facility] LABCLIA [id number] [place] [address] [place] Glucose [Mass/Vol] 172 mg/dL High 74-99 [facility] Comment on above: Order Comment: Speci men Type: BLOOD SPECIMENOrdering Facility: [facility] Address: [address] [place] [address] Result Comment: The [place] [employer] (ADA) provides guidance for cutoff values for fasting glucose and random glucose. The ADA defines fasting as no caloric intake for at least 8 hours. Fasting plasma glucose results between 100 to 125 mg/dL indicate increased risk for diabetes (prediabetes).Fasting plasma glucose results greater than or equal to 126 mg/dL meet the criteria for diagnosis of diabetes. In the absence of unequivocal hyperglycemia, results should be confirmed by repeat testing. In a patient with classic symptoms of hyperglycemia or hyperglycemic crisis, random plasma glucose results greater than or equal to 200 mg/dL meet the criteria for diagnosis of diabetes.Reference: Standards of Medical Care in Diabetes 2016, [place] [employer]. Diabetes Care. 2016.39(Suppl 1). Performed By: #### H SASCHA, ####[facility] LABCLIA [id number] [place] [id number] [place] Potassium [Moles/Vol] 4.2 mmol/L Normal 3.7-5.1 [facility] Comment on above: Order Comment: Speci men Type: BLOOD SPECIMENOrdering Facility: [facility] Address: [address] [place] [address] Performed By: #### H STNT, ####[facility] LABCLIA [id number] [address] [address] [place] Protein [Mass/Vol] 5.0 g/dL Low 6.3-8.0 [facility] Comment on above: Order Comment: Speci men Type: BLOOD SPECIMENOrdering Facility: [facility] Address: [address] [place] [address] Performed By: #### H STNT, ####[facility] LABCLIA [id number] [place] [address] [place] Sodium [Moles/Vol] 138 mmol/L Normal 136-144 [facility] Comment on above: Order Comment: Speci men Type: BLOOD SPECIMENOrdering Facility: [facility] Address: [address] [place] [address] Performed By: #### H STNT, ####[facility] LABCLIA [id number] [place] [address] [place] Urea nitrogen [Mass/Vol] 22 mg/dL Normal 9-24 [facility] Comment on above: Order Comment: Speci men Type: BLOOD SPECIMENOrdering Facility: [facility] Address: [address] [place] [address] Performed By: #### H STNT, ####[facility] LABCLIA [id number] [place] [address] [place] HIGH SENSITIVITY TROPONIN To n 10-29-2023 Troponin T.cardiac High sensitivity method [Mass/Vol] 523 ng/L High <12 [facility] Comment on above: Order Comment: Speci men Type: BLOOD SPECIMENOrdering Facility: [facility] Address: [address] [place] [address] Result Comment: When assessing risk for acute coronary syndromes: In patients undergoing blood draw greater than or equal to 2 hours from symptom onset, with history of very low to moderate risk and non-ischemic ECG, an initial hs-Troponin T less than 12 ng/L AND a 1 hour delta hs-Troponin T less than 3 ng/L should be considered very low risk for 30 day MACE. Performed By: #### H STNT, ####[facility] LABCLIA [id number] [place] [address] [place] XR ABDOMEN 1V SUPINEon 10-29 XR ABDOMEN 1V SUPINE Normal [facility] XR CHEST 1V FRONTAL PORTon 1 12-30-2022 XR CHEST 1V FRONTAL PORT Normal [facility] ANES POSTPROC EVALon 023 ANES POSTPROC EVAL Normal [facility] ANES PRE-OPon 10-28-2023 ANES PRE-OP Normal [facility] ARTERIAL BLOOD GASESon 10-28 Base deficit (BldA) [Moles/Vol] -1 mmol/L Normal -2-0 [facility] Comment on above: Order Comment: Speci men Type: ARTERIAL BLOOD SPECIMENOrdering Facility: [facility] Address: [address] [place] [address] Performed By: #### A LLBG ####[facility] LABCLIA [id number] [place] [address] [place] Body temperature 97.88 [degF] Normal [facility] Comment on above: Order Comment: Speci men Type: ARTERIAL BLOOD SPECIMENOrdering Facility: [facility] Address: [address] [place] [address] Performed By: #### A LLBG ####[facility] LABCLIA [id number] [place] [address] [place] Calcium.ionized (Bld) [Mass/Vol] 1.18 mmol/L Normal 1.08-1.30 [facility] Comment on above: Order Comment: Speci men Type: ARTERIAL BLOOD SPECIMENOrdering Facility: [facility] Address: [address] [place] [address] Performed By: #### A LLBG ####[facility] LABCLIA [id number] [place] [address] [place] Calcium.ionized adjusted to pH 7.4 (BldA) [Moles/Vol] 1.17 mmol/L Normal 1.08-1.30 [facility] Comment on above: Order Comment: Speci men Type: ARTERIAL BLOOD SPECIMENOrdering Facility: [facility] Address: [address] [place] [address] Performed By: #### A LLBG ####[facility] LABCLIA [id number] [address] [address] [place] Carboxyhemoglobin (BldA) [Mass fraction] 1.5 % Normal 0.0-2.0 [facility] Comment on above: Order Comment: Speci men Type: ARTERIAL BLOOD SPECIMENOrdering Facility: [facility] Address: [address] [place] [address] Result Comment: Carb oxyhemoglobin Reference Range for Smokers: 2.0-8.0% Performed By: #### A LLBG ####[facility] LABCLIA [id number] [place] [address] [place] CO2 (Bld) [Partial pressure] 43 mm Hg Normal 36-46 [facility] Comment on above: Order Comment: Speci men Type: ARTERIAL BLOOD SPECIMENOrdering Facility: [facility] Address: [address] [place] [address] Performed By: #### A LLBG ####[facility] LABCLIA [id number] [place] [address] [place] CO2 adjusted to patient's actual temperature (Bld) [Partial pressure] 42 mmHg Normal 36-46 [facility] Comment on above: Order Comment: Speci men Type: ARTERIAL BLOOD SPECIMENOrdering Facility: [facility] Address: [address] [place] [address] Performed By: #### A LLBG ####[facility] LABCLIA [id number] [place] [address] [place] FIO2 30 % Normal [facility] Comment on above: Order Comment: Speci men Type: ARTERIAL BLOOD SPECIMENOrdering Facility: [facility] Address: [address] [place] [address] Performed By: #### A LLBG ####[facility] LABCLIA [id number] [place] [address] [place] Glucose [Mass/Vol] 171 mg/dL High 60-105 [facility] Comment on above: Order Comment: Speci men Type: ARTERIAL BLOOD SPECIMENOrdering Facility: [facility] Address: [address] [place] [address] Performed By: #### A LLBG ####[facility] LABCLIA [id number] [place] [address] [place] HCO3 (Bld) [Moles/Vol] 24 mmol/L Normal 22-26 [facility] Comment on above: Order Comment: Speci men Type: ARTERIAL BLOOD SPECIMENOrdering Facility: [facility] Address: [address] [place] [address] Performed By: #### A LLBG ####[facility] LABCLIA [id number] [place] [address] [place] Hematocrit (Bld) [Volume fraction] 29.8 % Low 39.0-51.0 [facility] Comment on above: Order Comment: Speci men Type: ARTERIAL BLOOD SPECIMENOrdering Facility: [facility] Address: [address] [place] [address] Performed By: #### A LLBG ####[facility] LABCLIA [id number] [place] [address] [place] Hemoglobin (Bld) [Mass/Vol] 9.6 g/dL Low 13.0-17.0 [facility] Comment on above: Order Comment: Speci men Type: ARTERIAL BLOOD SPECIMENOrdering Facility: [facility] Address: [address] [place] [address] Performed By: #### A LLBG ####[facility] LABCLIA [id number] [place] [address] [place] Lactate [Moles/Vol] 0.9 mmol/L Normal 0.5-2.2 [facility] Comment on above: Order Comment: Speci men Type: ARTERIAL BLOOD SPECIMENOrdering Facility: [facility] Address: [address] [place] [address] Performed By: #### A LLBG ####[facility] LABCLIA [id number] [address] [address] [place] Methemoglobin (Bld) [Mass fraction] 0.9 % Normal 0.0-1.5 [facility] Comment on above: Order Comment: Speci men Type: ARTERIAL BLOOD SPECIMENOrdering Facility: [facility] Address: [address] [place] [address] Performed By: #### A LLBG ####[facility] LABCLIA [id number] [place] [address] [place] O2 THERAPY Ventilator Normal [facility] Comment on above: Order Comment: Speci men Type: ARTERIAL BLOOD SPECIMENOrdering Facility: [facility] Address: [address] [place] [address] Result Comment: CPAP settings Performed By: #### A LLBG ####[facility] LABCLIA [id number] [place] [address] [place] Oxygen (Bld) [Partial pressure] 121 mm Hg High 85-95 [facility] Comment on above: Order Comment: Speci men Type: ARTERIAL BLOOD SPECIMENOrdering Facility: [facility] Address: [address] [place] [address] Performed By: #### A LLBG ####[facility] LABCLIA [id number] [place] [id number] [place] Oxygen adjusted to patient's actual temperature (Bld) [Partial pressure] 119 mmHg High 85-95 [facility] Comment on above: Order Comment: Speci men Type: ARTERIAL BLOOD SPECIMENOrdering Facility: [facility] Address: [address] [place] [id number] Performed By: #### A LLBG ####[facility] LABCLIA [id number] [place] [id number] [place] Oxyhemoglobin (BldA) [Mass fraction] 96 % Normal 95-98 [facility] Comment on above: Order Comment: Speci men Type: ARTERIAL BLOOD SPECIMENOrdering Facility: [facility] Address: [address] [place] [address] Performed By: #### A LLBG ####[facility] LABCLIA [id number] [place] [address] [place] pH (Bld) 7.37 [pH] Normal 7.35-7.45 [facility] Comment on above: Order Comment: Speci men Type: ARTERIAL BLOOD SPECIMENOrdering Facility: [facility] Address: [address] [place] [address] Performed By: #### A LLBG ####[facility] LABCLIA [id number] [place] [address] [place] pH adjusted to patient's actual temperature (Bld) 7.38 Normal 7.35-7.45 [facility] Comment on above: Order Comment: Speci men Type: ARTERIAL BLOOD SPECIMENOrdering Facility: [facility] Address: [address] [place] [address] Performed By: #### A LLBG ####[facility] LABCLIA [id number] [place] [address] [place] PO2 / FIO2 RATIO 403 mmHg Normal >300 [facility] Comment on above: Order Comment: Speci men Type: ARTERIAL BLOOD SPECIMENOrdering Facility: [facility] Address: [address] [place] [address] Performed By: #### A LLBG ####[facility] LABCLIA [id number] [place] [address] [place] Potassium [Moles/Vol] 4.2 mmol/L Normal 3.5-5.0 [facility] Comment on above: Order Comment: Speci men Type: ARTERIAL BLOOD SPECIMENOrdering Facility: [facility] Address: [address] [place] [address] Performed By: #### A LLBG ####[facility] LABCLIA [id number] [place] [address] [place] Sodium [Moles/Vol] 137 mmol/L Normal 136-144 [facility] Comment on above: Order Comment: Speci men Type: ARTERIAL BLOOD SPECIMENOrdering Facility: [facility] Address: [address] [place] [address] Performed By: #### A LLBG ####[facility] LABCLIA [id number] [place] [address] [place] Base excess Calc (Bld) [Moles/Vol] 1 mmol/L Normal 0-2 [facility] Comment on above: Order Comment: Speci men Type: ARTERIAL BLOOD SPECIMENOrdering Facility: [facility] Address: [address] [place] [address] Performed By: #### A LLBG ####[facility] LABIA [id number] [place] [address] [place] Body temperature 97.7 [degF] Normal [facility] Comment on above: Order Comment: Speci men Type: ARTERIAL BLOOD SPECIMENOrdering Facility: [facility] Address: [address] [place] [address] Performed By: #### A LLBG ####[facility] LABIA [id number] [place] [address] [place] Calcium.ionized (Bld) [Mass/Vol] 1.18 mmol/L Normal 1.08-1.30 [facility] Comment on above: Order Comment: Speci men Type: ARTERIAL BLOOD SPECIMENOrdering Facility: [facility] Address: [address] [place] [address] Performed By: #### A LLBG ####[facility]IA [id number] [place] [address] [place] Calcium.ionized adjusted to pH 7.4 (BldA) [Moles/Vol] 1.16 mmol/L Normal 1.08-1.30 [facility] Comment on above: Order Comment: Speci men Type: ARTERIAL BLOOD SPECIMENOrdering Facility: [facility] Address: [address] [place] [address] Performed By: #### A LLBG ####[facility] LABCLIA [id number] [place] [address] [place] Carboxyhemoglobin (BldA) [Mass fraction] 1.1 % Normal 0.0-2.0 [facility] Comment on above: Order Comment: Speci men Type: ARTERIAL BLOOD SPECIMENOrdering Facility: [facility] Address: [address] [place] [address] Result Comment: Carb oxyhemoglobin Reference Range for Smokers: 2.0-8.0% Performed By: #### A LLBG ####[facility] LABCLIA [id number] [place] [address] [place] CO2 (Bld) [Partial pressure] 47 mm Hg High 36-46 [facility] Comment on above: Order Comment: Speci men Type: ARTERIAL BLOOD SPECIMENOrdering Facility: [facility] Address: [address] [place] [address] Performed By: #### A LLBG ####[facility] LABCLIA [id number] [place] [address] [place] CO2 adjusted to patient's actual temperature (Bld) [Partial pressure] 46 mmHg Normal 36-46 [facility] Comment on above: Order Comment: Speci men Type: ARTERIAL BLOOD SPECIMENOrdering Facility: [facility] Address: [address] [place] [address] Performed By: #### A LLBG ####[facility] LABCLIA [id number] [place] [address] [place] FIO2 40 % Normal [facility] Comment on above: Order Comment: Speci men Type: ARTERIAL BLOOD SPECIMENOrdering Facility: [facility] Address: [address] [place] [address] Performed By: #### A LLBG ####[facility] LABCLIA [id number] [place] [address] [place] Glucose [Mass/Vol] 130 mg/dL High 60-105 [facility] Comment on above: Order Comment: Speci men Type: ARTERIAL BLOOD SPECIMENOrdering Facility: [facility] Address: [address] [place] [address] Performed By: #### A LLBG ####[facility] LABCLIA [id number] [place] [address] [place] HCO3 (Bld) [Moles/Vol] 26 mmol/L Normal 22-26 [facility] Comment on above: Order Comment: Speci men Type: ARTERIAL BLOOD SPECIMENOrdering Facility: [facility] Address: [address] [place] [address] Performed By: #### A LLBG ####[facility] LABCLIA [id number] [place] [address] [place] Hematocrit (Bld) [Volume fraction] 30.0 % Low 39.0-51.0 [facility] Comment on above: Order Comment: Speci men Type: ARTERIAL BLOOD SPECIMENOrdering Facility: [facility] Address: [address] [place] [address] Performed By: #### A LLBG ####[facility] LABCLIA [id number] [place] [address] [place] Hemoglobin (Bld) [Mass/Vol] 9.7 g/dL Low 13.0-17.0 [facility] Comment on above: Order Comment: Speci men Type: ARTERIAL BLOOD SPECIMENOrdering Facility: [facility] Address: [address] [place] [address] Performed By: #### A LLBG ####[facility] LABCLIA [id number] [place] [address] [place] Lactate [Moles/Vol] 0.9 mmol/L Normal 0.5-2.2 [facility] Comment on above: Order Comment: Speci men Type: ARTERIAL BLOOD SPECIMENOrdering Facility: [facility] Address: [address] [place] [address] Performed By: #### A LLBG ####[facility] LABCLIA [id number] [place] [address] [place] Methemoglobin (Bld) [Mass fraction] 1.2 % Normal 0.0-1.5 [facility] Comment on above: Order Comment: Speci men Type: ARTERIAL BLOOD SPECIMENOrdering Facility: [facility] Address: [address] [place] [address] Performed By: #### A LLBG ####[facility] LABCLIA [id number] [place] [address] [place] O2 THERAPY Ventilator Normal [facility] Comment on above: Order Comment: Speci men Type: ARTERIAL BLOOD SPECIMENOrdering Facility: [facility] Address: [address] [place] [address] Performed By: #### A LLBG ####[facility] LABCLIA [id number] [place] [address] [place] Oxygen (Bld) [Partial pressure] 140 mm Hg High 85-95 [facility] Comment on above: Order Comment: Speci men Type: ARTERIAL BLOOD SPECIMENOrdering Facility: [facility] Address: [address] [place] [address] Performed By: #### A LLBG ####[facility] LABCLIA [id number] [place] [address] [place] Oxygen adjusted to patient's actual temperature (Bld) [Partial pressure] 137 mmHg High 85-95 [facility] Comment on above: Order Comment: Speci men Type: ARTERIAL BLOOD SPECIMENOrdering Facility: [facility] Address: [address] [place] [address] Performed By: #### A LLBG ####[facility] LABCLIA [id number] [place] [address] [place] Oxyhemoglobin (BldA) [Mass fraction] 96 % Normal 95-98 [facility] Comment on above: Order Comment: Speci men Type: ARTERIAL BLOOD SPECIMENOrdering Facility: [facility] Address: [address] [place] [address] Performed By: #### A LLBG ####[facility] LABCLIA [id number] [place] [address] [place] pH (Bld) 7.36 [pH] Normal 7.35-7.45 [facility] Comment on above: Order Comment: Speci men Type: ARTERIAL BLOOD SPECIMENOrdering Facility: [facility] Address: [address] [place] [address] Performed By: #### A LLBG ####[facility] LABCLIA [id number] [place] [address] [place] pH adjusted to patient's actual temperature (Bld) 7.37 Normal 7.35-7.45 [facility] Comment on above: Order Comment: Speci men Type: ARTERIAL BLOOD SPECIMENOrdering Facility: [facility] Address: [address] [place] [address] Performed By: #### A LLBG ####[facility] LABCLIA [id number] [place] [address] [place] PO2 / FIO2 RATIO 350 mmHg Normal >300 [facility] Comment on above: Order Comment: Speci men Type: ARTERIAL BLOOD SPECIMENOrdering Facility: [facility] Address: [address] [place] [address] Performed By: #### A LLBG ####[facility]IA [id number] [place] [address] [place] Potassium [Moles/Vol] 4.3 mmol/L Normal 3.5-5.0 [facility] Comment on above: Order Comment: Speci men Type: ARTERIAL BLOOD SPECIMENOrdering Facility: [facility] Address: [address] [place] [address] Performed By: #### A LLBG ####[facility] LABCLIA [id number] [place] [address] [place] Sodium [Moles/Vol] 139 mmol/L Normal 136-144 [facility] Comment on above: Order Comment: Speci men Type: ARTERIAL BLOOD SPECIMENOrdering Facility: [facility] Address: [address] [place] [address] Performed By: #### A LLBG ####[facility] LABCLIA [id number] [place] [address] [place] Base excess Calc (Bld) [Moles/Vol] 1 mmol/L Normal 0-2 [facility] Comment on above: Order Comment: Speci men Type: ARTERIAL BLOOD SPECIMENOrdering Facility: [facility] Address: [address] [place] [address] Performed By: #### A LLBG ####[facility] LABCLIA [id number] [place] [address] [place] Body temperature 97.52 [degF] Normal [facility] Comment on above: Order Comment: Speci men Type: ARTERIAL BLOOD SPECIMENOrdering Facility: [facility] Address: [address] [place] [address] Performed By: #### A LLBG ####[facility] LABCLIA [id number] [place] [address] [place] Calcium.ionized (Bld) [Mass/Vol] 1.16 mmol/L Normal 1.08-1.30 [facility] Comment on above: Order Comment: Speci men Type: ARTERIAL BLOOD SPECIMENOrdering Facility: [facility] Address: [address] [place] [address] Performed By: #### A LLBG ####[facility] LABCLIA [id number] [place] [address] [place] Calcium.ionized adjusted to pH 7.4 (BldA) [Moles/Vol] 1.14 mmol/L Normal 1.08-1.30 [facility] Comment on above: Order Comment: Speci men Type: ARTERIAL BLOOD SPECIMENOrdering Facility: [facility] Address: [address] [place] [address] Performed By: #### A LLBG ####[facility] LABCLIA [id number] [place] [address] [place] Carboxyhemoglobin (BldA) [Mass fraction] 1.4 % Normal 0.0-2.0 [facility] Comment on above: Order Comment: Speci men Type: ARTERIAL BLOOD SPECIMENOrdering Facility: [facility] Address: [address] [place] [address] Result Comment: Carb oxyhemoglobin Reference Range for Smokers: 2.0-8.0% Performed By: #### A LLBG ####[facility] LABCLIA [id number] [place] [address] [place] CO2 (Bld) [Partial pressure] 48 mm Hg High 36-46 [facility] Comment on above: Order Comment: Speci men Type: ARTERIAL BLOOD SPECIMENOrdering Facility: [facility] Address: [address] [place] [address] Performed By: #### A LLBG ####[facility] LABCLIA [id number] [place] [address] [place] CO2 adjusted to patient's actual temperature (Bld) [Partial pressure] 46 mmHg Normal 36-46 [facility] Comment on above: Order Comment: Speci men Type: ARTERIAL BLOOD SPECIMENOrdering Facility: [facility] Address: [address] [place] [address] Performed By: #### A LLBG ####[facility] LABCLIA [id number] [place] [address] [place] Glucose [Mass/Vol] 138 mg/dL High 60-105 [facility] Comment on above: Order Comment: Speci men Type: ARTERIAL BLOOD SPECIMENOrdering Facility: [facility] Address: [address] [place] [address] Performed By: #### A LLBG ####[facility] LABCLIA [id number] [place] [address] [place] HCO3 (Bld) [Moles/Vol] 27 mmol/L High 22-26 [facility] Comment on above: Order Comment: Speci men Type: ARTERIAL BLOOD SPECIMENOrdering Facility: [facility] Address: [address] [place] [address] Performed By: #### A LLBG ####[facility] LABCLIA [id number] [place] [address] [place] Hematocrit (Bld) [Volume fraction] 28.8 % Low 39.0-51.0 [facility] Comment on above: Order Comment: Speci men Type: ARTERIAL BLOOD SPECIMENOrdering Facility: [facility] Address: [address] [place] [address] Performed By: #### A LLBG ####[facility] LABCLIA [id number] [place] [address] [place] Hemoglobin (Bld) [Mass/Vol] 9.3 g/dL Low 13.0-17.0 [facility] Comment on above: Order Comment: Speci men Type: ARTERIAL BLOOD SPECIMENOrdering Facility: [facility] Address: [address] [place] [address] Performed By: #### A LLBG ####[facility] LABCLIA [id number] [place] [address] [place] Lactate [Moles/Vol] 1.4 mmol/L Normal 0.5-2.2 [facility] Comment on above: Order Comment: Speci men Type: ARTERIAL BLOOD SPECIMENOrdering Facility: [facility] Address: [address] [place] [address] Performed By: #### A LLBG ####[facility] LABCLIA [id number] [place] [id number] [place] LITERS 40 Liters/min Normal [facility] Comment on above: Order Comment: Speci men Type: ARTERIAL BLOOD SPECIMENOrdering Facility: [facility] Address: [address] [place] [address] Performed By: #### A LLBG ####[facility] LABCLIA [id number] [place] [address] [place] Methemoglobin (Bld) [Mass fraction] 1.3 % Normal 0.0-1.5 [facility] Comment on above: Order Comment: Speci men Type: ARTERIAL BLOOD SPECIMENOrdering Facility: [facility] Address: [address] [place] [address] Performed By: #### A LLBG ####[facility] LABCLIA [id number] [place] [address] [place] O2 THERAPY Ventilator Normal [facility] Comment on above: Order Comment: Speci men Type: ARTERIAL BLOOD SPECIMENOrdering Facility: [facility] Address: [address] [place] [address] Performed By: #### A LLBG ####[facility] LABCLIA [id number] [place] [id number] [place] Oxygen (Bld) [Partial pressure] 95 mm Hg Normal 85-95 [facility] Comment on above: Order Comment: Speci men Type: ARTERIAL BLOOD SPECIMENOrdering Facility: [facility] Address: [address] [place] [address] Performed By: #### A LLBG ####[facility] LABCLIA [id number] [place] [address] [place] Oxygen adjusted to patient's actual temperature (Bld) [Partial pressure] 92 mmHg Normal 85-95 [facility] Comment on above: Order Comment: Speci men Type: ARTERIAL BLOOD SPECIMENOrdering Facility: [facility] Address: [address] [place] [address] Performed By: #### A LLBG ####[facility] LABCLIA [id number] [place] [address] [place] Oxyhemoglobin (BldA) [Mass fraction] 95 % Normal 95-98 [facility] Comment on above: Order Comment: Speci men Type: ARTERIAL BLOOD SPECIMENOrdering Facility: [facility] Address: [address] [place] [address] Performed By: #### A LLBG ####[facility] LABCLIA [id number] [place] [address] [place] pH (Bld) 7.36 [pH] Normal 7.35-7.45 [facility] Comment on above: Order Comment: Speci men Type: ARTERIAL BLOOD SPECIMENOrdering Facility: [facility] Address: [address] [place] [address] Performed By: #### A LLBG ####[facility]IA [id number] [place] [address] [place] pH adjusted to patient's actual temperature (Bld) 7.37 Normal 7.35-7.45 [facility] Comment on above: Order Comment: Speci men Type: ARTERIAL BLOOD SPECIMENOrdering Facility: [facility] Address: [address] [place] [address] Performed By: #### A LLBG ####[facility] LABCLIA [id number] [place] [address] [place] Potassium [Moles/Vol] 3.5 mmol/L Normal 3.5-5.0 [facility] Comment on above: Order Comment: Speci men Type: ARTERIAL BLOOD SPECIMENOrdering Facility: [facility] Address: [address] [place] [address] Performed By: #### A LLBG ####[facility] LABIA [id number] [place] [address] [place] Sodium [Moles/Vol] 138 mmol/L Normal 136-144 [facility] Comment on above: Order Comment: Speci men Type: ARTERIAL BLOOD SPECIMENOrdering Facility: [facility] Address: [address] [place] [address] Performed By: #### A LLBG ####[facility] LABIA [id number] [place] [address] [place] Base excess Calc (Bld) [Moles/Vol] 2 mmol/L Normal 0-2 [facility] Comment on above: Order Comment: Speci men Type: ARTERIAL BLOOD SPECIMENOrdering Facility: [facility] Address: [address] [place] [address] Performed By: #### A LLBG ####[facility] LABIA [id number] [place] [address] [place] Calcium.ionized (Bld) [Mass/Vol] 1.13 mmol/L Normal 1.08-1.30 [facility] Comment on above: Order Comment: Speci men Type: ARTERIAL BLOOD SPECIMENOrdering Facility: [facility] Address: [address] [place] [address] Performed By: #### A LLBG ####[facility] LABIA [id number] [place] [address] [place] Calcium.ionized adjusted to pH 7.4 (BldA) [Moles/Vol] 1.12 mmol/L Normal 1.08-1.30 [facility] Comment on above: Order Comment: Speci men Type: ARTERIAL BLOOD SPECIMENOrdering Facility: [facility] Address: [address] [place] [address] Performed By: #### A LLBG ####[facility] LABIA [id number] [place] [address] [place] Carboxyhemoglobin (BldA) [Mass fraction] 2.1 % High 0.0-2.0 [facility] Comment on above: Order Comment: Speci men Type: ARTERIAL BLOOD SPECIMENOrdering Facility: [facility] Address: [address] [place] [address] Result Comment: Carb oxyhemoglobin Reference Range for Smokers: 2.0-8.0% Performed By: #### A LLBG ####[facility] LABCLIA [id number] [place] [address] [place] CO2 (Bld) [Partial pressure] 44 mm Hg Normal 36-46 [facility] Comment on above: Order Comment: Speci men Type: ARTERIAL BLOOD SPECIMENOrdering Facility: [facility] Address: [address] [place] [address] Performed By: #### A LLBG ####[facility] LABCLIA [id number] [place] [address] [place] CO2 adjusted to patient's actual temperature (Bld) [Partial pressure] 44 mmHg Normal 36-46 [facility] Comment on above: Order Comment: Speci men Type: ARTERIAL BLOOD SPECIMENOrdering Facility: [facility] Address: [address] [place] [address] Performed By: #### A LLBG ####[facility] LABCLIA [id number] [place] [address] [place] Glucose [Mass/Vol] 175 mg/dL High 60-105 [facility] Comment on above: Order Comment: Speci men Type: ARTERIAL BLOOD SPECIMENOrdering Facility: [facility] Address: [address] [place] [address] Performed By: #### A LLBG ####[facility] LABCLIA [id number] [place] [address] [place] HCO3 (Bld) [Moles/Vol] 26 mmol/L Normal 22-26 [facility] Comment on above: Order Comment: Speci men Type: ARTERIAL BLOOD SPECIMENOrdering Facility: [facility] Address: [address] [place] [address] Performed By: #### A LLBG ####[facility] LABCLIA [id number] [place] [address] [place] Hematocrit (Bld) [Volume fraction] 26.8 % Low 39.0-51.0 [facility] Comment on above: Order Comment: Speci men Type: ARTERIAL BLOOD SPECIMENOrdering Facility: [facility] Address: [address] [place] [address] Performed By: #### A LLBG ####[facility] LABCLIA [id number] [place] [address] [place] Hemoglobin (Bld) [Mass/Vol] 8.6 g/dL Low 13.0-17.0 [facility] Comment on above: Order Comment: Speci men Type: ARTERIAL BLOOD SPECIMENOrdering Facility: [facility] Address: [address] [place] [address] Performed By: #### A LLBG ####[facility] LABCLIA [id number] [place] [address] [place] Lactate [Moles/Vol] 1.4 mmol/L Normal 0.5-2.2 [facility] Comment on above: Order Comment: Speci men Type: ARTERIAL BLOOD SPECIMENOrdering Facility: [facility] Address: [address] [place] [address] Performed By: #### A LLBG ####[facility] LABCLIA [id number] [place] [address] [place] Methemoglobin (Bld) [Mass fraction] 1.5 % Normal 0.0-1.5 [facility] Comment on above: Order Comment: Speci men Type: ARTERIAL BLOOD SPECIMENOrdering Facility: [facility] Address: [address] [place] [address] Performed By: #### A LLBG ####[facility] LABCLIA [id number] [place] [address] [place] Oxygen (Bld) [Partial pressure] 219 mm Hg High 85-95 [facility] Comment on above: Order Comment: Speci men Type: ARTERIAL BLOOD SPECIMENOrdering Facility: [facility] Address: [address] [place] [address] Performed By: #### A LLBG ####[facility] LABCLIA [id number] [place] [address] [place] Oxygen adjusted to patient's actual temperature (Bld) [Partial pressure] 219 mmHg High 85-95 [facility] Comment on above: Order Comment: Speci men Type: ARTERIAL BLOOD SPECIMENOrdering Facility: [facility] Address: [address] [place] [address] Performed By: #### A LLBG ####[facility] LABCLIA [id number] [place] [address] [place] Oxyhemoglobin (BldA) [Mass fraction] 96 % Normal 95-98 [facility] Comment on above: Order Comment: Speci men Type: ARTERIAL BLOOD SPECIMENOrdering Facility: [facility] Address: [address] [place] [address] Performed By: #### A LLBG ####[facility] LABCLIA [id number] [place] [address] [place] pH (Bld) 7.39 [pH] Normal 7.35-7.45 [facility] Comment on above: Order Comment: Speci men Type: ARTERIAL BLOOD SPECIMENOrdering Facility: [facility] Address: [address] [place] [address] Performed By: #### A LLBG ####[facility] LABCLIA [id number] [place] [address] [place] pH adjusted to patient's actual temperature (Bld) 7.39 Normal 7.35-7.45 [facility] Comment on above: Order Comment: Speci men Type: ARTERIAL BLOOD SPECIMENOrdering Facility: [facility] Address: [address] [place] [address] Performed By: #### A LLBG ####[facility] LABCLIA [id number] [place] [address] [place] Potassium [Moles/Vol] 4.0 mmol/L Normal 3.5-5.0 [facility] Comment on above: Order Comment: Speci men Type: ARTERIAL BLOOD SPECIMENOrdering Facility: [facility] Address: [address] [place] [address] Performed By: #### A LLBG ####[facility] LABCLIA [id number] [place] [address] [place] Sodium [Moles/Vol] 137 mmol/L Normal 136-144 [facility] Comment on above: Order Comment: Speci men Type: ARTERIAL BLOOD SPECIMENOrdering Facility: [facility] Address: [address] [place] [address] Performed By: #### A LLBG ####[facility] LABCLIA [id number] [place] [address] [place] Base excess Calc (Bld) [Moles/Vol] 1 mmol/L Normal 0-2 [facility] Comment on above: Order Comment: Speci men Type: ARTERIAL BLOOD SPECIMENOrdering Facility: [facility] Address: [address] [place] [address] Performed By: #### A LLBG ####[facility] LABCLIA [id number] [place] [address] [place] Calcium.ionized (Bld) [Mass/Vol] 1.14 mmol/L Normal 1.08-1.30 [facility] Comment on above: Order Comment: Speci men Type: ARTERIAL BLOOD SPECIMENOrdering Facility: [facility] Address: [address] [place] [address] Performed By: #### A LLBG ####[facility] LABCLIA [id number] [place] [address] [place] Calcium.ionized adjusted to pH 7.4 (BldA) [Moles/Vol] 1.14 mmol/L Normal 1.08-1.30 [facility] Comment on above: Order Comment: Speci men Type: ARTERIAL BLOOD SPECIMENOrdering Facility: [facility] Address: [address] [place] [address] Performed By: #### A LLBG ####[facility] LABCLIA [id number] [place] [address] [place] Carboxyhemoglobin (BldA) [Mass fraction] 1.5 % Normal 0.0-2.0 [facility] Comment on above: Order Comment: Speci men Type: ARTERIAL BLOOD SPECIMENOrdering Facility: [facility] Address: [address] [place] [address] Result Comment: Carb oxyhemoglobin Reference Range for Smokers: 2.0-8.0% Performed By: #### A LLBG ####[facility] LABCLIA [id number] [place] [address] [place] CO2 (Bld) [Partial pressure] 42 mm Hg Normal 36-46 [facility] Comment on above: Order Comment: Speci men Type: ARTERIAL BLOOD SPECIMENOrdering Facility: [facility] Address: [address] [place] [address] Performed By: #### A LLBG ####[facility] LABCLIA [id number] [place] [address] [place] CO2 adjusted to patient's actual temperature (Bld) [Partial pressure] 42 mmHg Normal 36-46 [facility] Comment on above: Order Comment: Speci men Type: ARTERIAL BLOOD SPECIMENOrdering Facility: [facility] Address: [address] [place] [address] Performed By: #### A LLBG ####[facility] LABCLIA [id number] [place] [address] [place] Glucose [Mass/Vol] 209 mg/dL High 60-105 [facility] Comment on above: Order Comment: Speci men Type: ARTERIAL BLOOD SPECIMENOrdering Facility: [facility] Address: [address] [place] [address] Performed By: #### A LLBG ####[facility] LABCLIA [id number] [place] [address] [place] HCO3 (Bld) [Moles/Vol] 25 mmol/L Normal 22-26 [facility] Comment on above: Order Comment: Speci men Type: ARTERIAL BLOOD SPECIMENOrdering Facility: [facility] Address: [address] [place] [address] Performed By: #### A LLBG ####[facility] LABCLIA [id number] [place] [address] [place] Hematocrit (Bld) [Volume fraction] 27.8 % Low 39.0-51.0 [facility] Comment on above: Order Comment: Speci men Type: ARTERIAL BLOOD SPECIMENOrdering Facility: [facility] Address: [address] [place] [address] Performed By: #### A LLBG ####[facility] LABIA [id number] [place] [address] [place] Hemoglobin (Bld) [Mass/Vol] 9.0 g/dL Low 13.0-17.0 [facility] Comment on above: Order Comment: Speci men Type: ARTERIAL BLOOD SPECIMENOrdering Facility: [facility] Address: [address] [place] [address] Performed By: #### A LLBG ####[facility] LABCLIA [id number] [place] [address] [place] Lactate [Moles/Vol] 1.2 mmol/L Normal 0.5-2.2 [facility] Comment on above: Order Comment: Speci men Type: ARTERIAL BLOOD SPECIMENOrdering Facility: [facility] Address: [address] [place] [address] Performed By: #### A LLBG ####[facility] LABCLIA [id number] [place] [address] [place] Methemoglobin (Bld) [Mass fraction] 1.1 % Normal 0.0-1.5 [facility] Comment on above: Order Comment: Speci men Type: ARTERIAL BLOOD SPECIMENOrdering Facility: [facility] Address: [address] [place] [address] Performed By: #### A LLBG ####[facility] LABCLIA [id number] [place] [address] [place] Oxygen (Bld) [Partial pressure] 173 mm Hg High 85-95 [facility] Comment on above: Order Comment: Speci men Type: ARTERIAL BLOOD SPECIMENOrdering Facility: [facility] Address: [address] [place] [address] Performed By: #### A LLBG ####[facility] LABCLIA [id number] [place] [address] [place] Oxygen adjusted to patient's actual temperature (Bld) [Partial pressure] 173 mmHg High 85-95 [facility] Comment on above: Order Comment: Speci men Type: ARTERIAL BLOOD SPECIMENOrdering Facility: [facility] Address: [address] [place] [address] Performed By: #### A LLBG ####[facility] LABCLIA [id number] [place] [address] [place] Oxyhemoglobin (BldA) [Mass fraction] 97 % Normal 95-98 [facility] Comment on above: Order Comment: Speci men Type: ARTERIAL BLOOD SPECIMENOrdering Facility: [facility] Address: [address] [place] [address] Performed By: #### A LLBG ####[facility] LABCLIA [id number] [place] [address] [place] pH (Bld) 7.39 [pH] Normal 7.35-7.45 [facility] Comment on above: Order Comment: Speci men Type: ARTERIAL BLOOD SPECIMENOrdering Facility: [facility] Address: [address] [place] [address] Performed By: #### A LLBG ####[facility] LABCLIA [id number] [place] [address] [place] pH adjusted to patient's actual temperature (Bld) 7.39 Normal 7.35-7.45 [facility] Comment on above: Order Comment: Speci men Type: ARTERIAL BLOOD SPECIMENOrdering Facility: [facility] Address: [address] [place] [address] Performed By: #### A LLBG ####[facility] LABCLIA [id number] [place] [address] [place] Potassium [Moles/Vol] 3.7 mmol/L Normal 3.5-5.0 [facility] Comment on above: Order Comment: Speci men Type: ARTERIAL BLOOD SPECIMENOrdering Facility: [facility] Address: [address] [place] [address] Performed By: #### A LLBG ####[facility] LABCLIA [id number] [place] [address] [place] Sodium [Moles/Vol] 135 mmol/L Low 136-144 [facility] Comment on above: Order Comment: Speci men Type: ARTERIAL BLOOD SPECIMENOrdering Facility: [facility] Address: [address] [place] [address] Performed By: #### A LLBG ####[facility] LABCLIA [id number] [place] [address] [place] Base excess Calc (Bld) [Moles/Vol] 2 mmol/L Normal 0-2 [facility] Comment on above: Order Comment: Speci men Type: ARTERIAL BLOOD SPECIMENOrdering Facility: [facility] Address: [address] [place] [address] Performed By: #### A LLBG ####[facility] LABCLIA [id number] [place] [address] [place] Calcium.ionized (Bld) [Mass/Vol] 1.11 mmol/L Normal 1.08-1.30 [facility] Comment on above: Order Comment: Speci men Type: ARTERIAL BLOOD SPECIMENOrdering Facility: [facility] Address: [address] [place] [address] Performed By: #### A LLBG ####[facility] LABCLIA [id number] [place] [address] [place] Calcium.ionized adjusted to pH 7.4 (BldA) [Moles/Vol] 1.11 mmol/L Normal 1.08-1.30 [facility] Comment on above: Order Comment: Speci men Type: ARTERIAL BLOOD SPECIMENOrdering Facility: [facility] Address: [address] [place] [address] Performed By: #### A LLBG ####[facility] LABIA [id number] [place] [address] [place] Carboxyhemoglobin (BldA) [Mass fraction] 1.8 % Normal 0.0-2.0 [facility] Comment on above: Order Comment: Speci men Type: ARTERIAL BLOOD SPECIMENOrdering Facility: [facility] Address: [address] [place] [address] Result Comment: Carb oxyhemoglobin Reference Range for Smokers: 2.0-8.0% Performed By: #### A LLBG ####[facility] LABCLIA [id number] [place] [address] [place] CO2 (Bld) [Partial pressure] 42 mm Hg Normal 36-46 [facility] Comment on above: Order Comment: Speci men Type: ARTERIAL BLOOD SPECIMENOrdering Facility: [facility] Address: [address] [place] [address] Performed By: #### A LLBG ####[facility] LABCLIA [id number] [place] [address] [place] CO2 adjusted to patient's actual temperature (Bld) [Partial pressure] 42 mmHg Normal 36-46 [facility] Comment on above: Order Comment: Speci men Type: ARTERIAL BLOOD SPECIMENOrdering Facility: [facility] Address: [address] [place] [address] Performed By: #### A LLBG ####[facility] LABCLIA [id number] [place] [address] [place] Glucose [Mass/Vol] 227 mg/dL High 60-105 [facility] Comment on above: Order Comment: Speci men Type: ARTERIAL BLOOD SPECIMENOrdering Facility: [facility] Address: [address] [place] [address] Performed By: #### A LLBG ####[facility] LABCLIA [id number] [place] [address] [place] HCO3 (Bld) [Moles/Vol] 26 mmol/L Normal 22-26 [facility] Comment on above: Order Comment: Speci men Type: ARTERIAL BLOOD SPECIMENOrdering Facility: [facility] Address: [address] [place] [address] Performed By: #### A LLBG ####[facility] LABIA [id number] [place] [address] [place] Hematocrit (Bld) [Volume fraction] 26.9 % Low 39.0-51.0 [facility] Comment on above: Order Comment: Speci men Type: ARTERIAL BLOOD SPECIMENOrdering Facility: [facility] Address: [address] [place] [address] Performed By: #### A LLBG ####[facility] LABCLIA [id number] [place] [address] [place] Hemoglobin (Bld) [Mass/Vol] 8.7 g/dL Low 13.0-17.0 [facility] Comment on above: Order Comment: Speci men Type: ARTERIAL BLOOD SPECIMENOrdering Facility: [facility] Address: [address] [place] [address] Performed By: #### A LLBG ####[facility] LABIA [id number] [id number] [address] [place] Lactate [Moles/Vol] 0.9 mmol/L Normal 0.5-2.2 [facility] Comment on above: Order Comment: Speci men Type: ARTERIAL BLOOD SPECIMENOrdering Facility: [facility] Address: [address] [place] [address] Performed By: #### A LLBG ####[facility] LABCLIA [id number] [place] [address] [place] Methemoglobin (Bld) [Mass fraction] 0.5 % Normal 0.0-1.5 [facility] Comment on above: Order Comment: Speci men Type: ARTERIAL BLOOD SPECIMENOrdering Facility: [facility] Address: [address] [place] [address] Performed By: #### A LLBG ####[facility] LABCLIA [id number] [place] [address] [place] Oxygen (Bld) [Partial pressure] 292 mm Hg High 85-95 [facility] Comment on above: Order Comment: Speci men Type: ARTERIAL BLOOD SPECIMENOrdering Facility: [facility] Address: [address] [place] [address] Performed By: #### A LLBG ####[facility] LABCLIA [id number] [place] [address] [place] Oxygen adjusted to patient's actual temperature (Bld) [Partial pressure] 292 mmHg High 85-95 [facility] Comment on above: Order Comment: Speci men Type: ARTERIAL BLOOD SPECIMENOrdering Facility: [facility] Address: [address] [place] [address] Performed By: #### A LLBG ####[facility] LABCLIA [id number] [place] [address] [place] Oxyhemoglobin (BldA) [Mass fraction] 98 % Normal 95-98 [facility] Comment on above: Order Comment: Speci men Type: ARTERIAL BLOOD SPECIMENOrdering Facility: [facility] Address: [address] [place] [address] Performed By: #### A LLBG ####[facility] LABCLIA [id number] [place] [address] [place] pH (Bld) 7.40 [pH] Normal 7.35-7.45 [facility] Comment on above: Order Comment: Speci men Type: ARTERIAL BLOOD SPECIMENOrdering Facility: [facility] Address: [address] [place] [address] Performed By: #### A LLBG ####[facility] LABCLIA [id number] [place] [address] [place] pH adjusted to patient's actual temperature (Bld) 7.40 Normal 7.35-7.45 [facility] Comment on above: Order Comment: Speci men Type: ARTERIAL BLOOD SPECIMENOrdering Facility: [facility] Address: [address] [place] [address] Performed By: #### A LLBG ####[facility] LABIA [id number] [place] [address] [place] Potassium [Moles/Vol] 4.4 mmol/L Normal 3.5-5.0 [facility] Comment on above: Order Comment: Speci men Type: ARTERIAL BLOOD SPECIMENOrdering Facility: [facility] Address: [address] [place] [address] Performed By: #### A LLBG ####[facility] LABCLIA [id number] [place] [address] [place] Sodium [Moles/Vol] 135 mmol/L Low 136-144 [facility] Comment on above: Order Comment: Speci men Type: ARTERIAL BLOOD SPECIMENOrdering Facility: [facility] Address: [address] [place] [address] Performed By: #### A LLBG ####[facility] LABCLIA [id number] [place] [address] [place] Base excess Calc (Bld) [Moles/Vol] 1 mmol/L Normal 0-2 [facility] Comment on above: Order Comment: Speci men Type: ARTERIAL BLOOD SPECIMENOrdering Facility: [facility] Address: [address] [place] [address] Performed By: #### A LLBG ####[facility] LABIA [id number] [place] [address] [place] Calcium.ionized (Bld) [Mass/Vol] 1.15 mmol/L Normal 1.08-1.30 [facility] Comment on above: Order Comment: Speci men Type: ARTERIAL BLOOD SPECIMENOrdering Facility: [facility] Address: [address] [place] [address] Performed By: #### A LLBG ####[facility] [id number] [place] [address] [place] Calcium.ionized adjusted to pH 7.4 (BldA) [Moles/Vol] 1.15 mmol/L Normal 1.08-1.30 [facility] Comment on above: Order Comment: Speci men Type: ARTERIAL BLOOD SPECIMENOrdering Facility: [facility] Address: [address] [place] [address] Performed By: #### A LLBG ####[facility] LABIA [id number] [place] [address] [place] Carboxyhemoglobin (BldA) [Mass fraction] 1.3 % Normal 0.0-2.0 [facility] Comment on above: Order Comment: Speci men Type: ARTERIAL BLOOD SPECIMENOrdering Facility: [facility] Address: [address] [place] [address] Result Comment: Carb oxyhemoglobin Reference Range for Smokers: 2.0-8.0% Performed By: #### A LLBG ####[facility] LABIA [id number] [place] [address] [place] CO2 (Bld) [Partial pressure] 42 mm Hg Normal 36-46 [facility] Comment on above: Order Comment: Speci men Type: ARTERIAL BLOOD SPECIMENOrdering Facility: [facility] Address: [address] [place] [address] Performed By: #### A LLBG ####[facility] LABCLIA [id number] [place] [address] [place] CO2 adjusted to patient's actual temperature (Bld) [Partial pressure] 42 mmHg Normal 36-46 [facility] Comment on above: Order Comment: Speci men Type: ARTERIAL BLOOD SPECIMENOrdering Facility: [facility] Address: [address] [place] [address] Performed By: #### A LLBG ####[facility] LABCLIA [id number] [place] [address] [place] Glucose [Mass/Vol] 164 mg/dL High 60-105 [facility] Comment on above: Order Comment: Speci men Type: ARTERIAL BLOOD SPECIMENOrdering Facility: [facility] Address: [address] [place] [address] Performed By: #### A LLBG ####[facility] LABCLIA [id number] [place] [address] [place] HCO3 (Bld) [Moles/Vol] 26 mmol/L Normal 22-26 [facility] Comment on above: Order Comment: Speci men Type: ARTERIAL BLOOD SPECIMENOrdering Facility: [facility] Address: [address] [place] [address] Performed By: #### A LLBG ####[facility] LABCLIA [id number] [place] [address] [place] Hematocrit (Bld) [Volume fraction] 29.0 % Low 39.0-51.0 [facility] Comment on above: Order Comment: Speci men Type: ARTERIAL BLOOD SPECIMENOrdering Facility: [facility] Address: [address] [place] [address] Performed By: #### A LLBG ####[facility] LABCLIA [id number] [place] [address] [place] Hemoglobin (Bld) [Mass/Vol] 9.3 g/dL Low 13.0-17.0 [facility] Comment on above: Order Comment: Speci men Type: ARTERIAL BLOOD SPECIMENOrdering Facility: [facility] Address: [address] [place] [address] Performed By: #### A LLBG ####[facility] LABCLIA [id number] [place] [address] [place] Lactate [Moles/Vol] 1.0 mmol/L Normal 0.5-2.2 [facility] Comment on above: Order Comment: Speci men Type: ARTERIAL BLOOD SPECIMENOrdering Facility: [facility] Address: [address] [place] [address] Performed By: #### A LLBG ####[facility] LABCLIA [id number] [place] [address] [place] Methemoglobin (Bld) [Mass fraction] 1.2 % Normal 0.0-1.5 [facility] Comment on above: Order Comment: Speci men Type: ARTERIAL BLOOD SPECIMENOrdering Facility: [facility] Address: [address] [place] [address] Performed By: #### A LLBG ####[facility] LABCLIA [id number] [place] [address] [place] Oxygen (Bld) [Partial pressure] 327 mm Hg High 85-95 [facility] Comment on above: Order Comment: Speci men Type: ARTERIAL BLOOD SPECIMENOrdering Facility: [facility] Address: [address] [place] [address] Performed By: #### A LLBG ####[facility] LABCLIA [id number] [place] [address] [place] Oxygen adjusted to patient's actual temperature (Bld) [Partial pressure] 327 mmHg High 85-95 [facility] Comment on above: Order Comment: Speci men Type: ARTERIAL BLOOD SPECIMENOrdering Facility: [facility] Address: [address] [place] [address] Performed By: #### A LLBG ####[facility] LABCLIA [id number] [place] [address] [place] Oxyhemoglobin (BldA) [Mass fraction] 97 % Normal 95-98 [facility] Comment on above: Order Comment: Speci men Type: ARTERIAL BLOOD SPECIMENOrdering Facility: [facility] Address: [address] [place] [address] Performed By: #### A LLBG ####[facility] LABCLIA [id number] [place] [address] [place] pH (Bld) 7.40 [pH] Normal 7.35-7.45 [facility] Comment on above: Order Comment: Speci men Type: ARTERIAL BLOOD SPECIMENOrdering Facility: [facility] Address: [address] [place] [address] Performed By: #### A LLBG ####[facility] LABCLIA [id number] [place] [address] [place] pH adjusted to patient's actual temperature (Bld) 7.40 Normal 7.35-7.45 [facility] Comment on above: Order Comment: Speci men Type: ARTERIAL BLOOD SPECIMENOrdering Facility: [facility] Address: [address] [place] [address] Performed By: #### A LLBG ####[facility] LABCLIA [id number] [place] [address] [place] Potassium [Moles/Vol] 3.8 mmol/L Normal 3.5-5.0 [facility] Comment on above: Order Comment: Speci men Type: ARTERIAL BLOOD SPECIMENOrdering Facility: [facility] Address: [address] [place] [address] Performed By: #### A LLBG ####[facility] LABCLIA [id number] [place] [address] [place] Sodium [Moles/Vol] 137 mmol/L Normal 136-144 [facility] Comment on above: Order Comment: Speci men Type: ARTERIAL BLOOD SPECIMENOrdering Facility: [facility] Address: [address] [place] [address] Performed By: #### A LLBG ####[facility] LABCLIA [id number] [place] [address] [place] Base excess Calc (Bld) [Moles/Vol] 1 mmol/L Normal 0-2 [facility] Comment on above: Order Comment: Speci men Type: ARTERIAL BLOOD SPECIMENOrdering Facility: [facility] Address: [address] [place] [address] Performed By: #### A LLBG ####[facility] LABIA [id number] [place] [address] [place] Calcium.ionized (Bld) [Mass/Vol] 1.23 mmol/L Normal 1.08-1.30 [facility] Comment on above: Order Comment: Speci men Type: ARTERIAL BLOOD SPECIMENOrdering Facility: [facility] Address: [address] [place] [address] Performed By: #### A LLBG ####[facility] LABIA [id number] [place] [address] [place] Calcium.ionized adjusted to pH 7.4 (BldA) [Moles/Vol] 1.23 mmol/L Normal 1.08-1.30 [facility] Comment on above: Order Comment: Speci men Type: ARTERIAL BLOOD SPECIMENOrdering Facility: [facility] Address: [address] [place] [address] Performed By: #### A LLBG ####[facility] LABIA [id number] [place] [address] [place] Carboxyhemoglobin (BldA) [Mass fraction] 1.8 % Normal 0.0-2.0 [facility] Comment on above: Order Comment: Speci men Type: ARTERIAL BLOOD SPECIMENOrdering Facility: [facility] Address: [address] [place] [address] Result Comment: Carb oxyhemoglobin Reference Range for Smokers: 2.0-8.0% Performed By: #### A LLBG ####[facility] LABCLIA [id number] [place] [address] [place] CO2 (Bld) [Partial pressure] 43 mm Hg Normal 36-46 [facility] Comment on above: Order Comment: Speci men Type: ARTERIAL BLOOD SPECIMENOrdering Facility: [facility] Address: [address] [place] [address] Performed By: #### A LLBG ####[facility] LABCLIA [id number] [place] [address] [place] CO2 adjusted to patient's actual temperature (Bld) [Partial pressure] 43 mmHg Normal 36-46 [facility] Comment on above: Order Comment: Speci men Type: ARTERIAL BLOOD SPECIMENOrdering Facility: [facility] [facility] Address: [address] [place] [address] Performed By: #### A LLBG ####[facility] LABCLIA [id number] [place] [address] [place] Glucose [Mass/Vol] 138 mg/dL High 60-105 [facility] Comment on above: Order Comment: Speci men Type: ARTERIAL BLOOD SPECIMENOrdering Facility: [facility] Address: [address] [place] [address] Performed By: #### A LLBG ####[facility] LABCLIA [id number] [place] [address] [place] HCO3 (Bld) [Moles/Vol] 26 mmol/L Normal 22-26 [facility] Comment on above: Order Comment: Speci men Type: ARTERIAL BLOOD SPECIMENOrdering Facility: [facility] Address: [address] [place] [address] Performed By: #### A LLBG ####[facility] LABCLIA [id number] [place] [address] [place] Hematocrit (Bld) [Volume fraction] 34.3 % Low 39.0-51.0 [facility] Comment on above: Order Comment: Speci men Type: ARTERIAL BLOOD SPECIMENOrdering Facility: [facility] Address: [address] [place] [address] Performed By: #### A LLBG ####[facility] LABIA [id number] [place] [address] [place] Hemoglobin (Bld) [Mass/Vol] 11.1 g/dL Low 13.0-17.0 [facility] Comment on above: Order Comment: Speci men Type: ARTERIAL BLOOD SPECIMENOrdering Facility: [facility] Address: [address] [place] [address] Performed By: #### A LLBG ####[facility] LABIA [id number] [place] [address] [place] Lactate [Moles/Vol] 0.9 mmol/L Normal 0.5-2.2 [facility] Comment on above: Order Comment: Speci men Type: ARTERIAL BLOOD SPECIMENOrdering Facility: [facility] Address: [address] [place] [address] Performed By: #### A LLBG ####[facility] LABIA [id number] [place] [address] [place] Methemoglobin (Bld) [Mass fraction] 1.0 % Normal 0.0-1.5 [facility] Comment on above: Order Comment: Speci men Type: ARTERIAL BLOOD SPECIMENOrdering Facility: [facility] Address: [address] [place] [address] Performed By: #### A LLBG ####[facility] LABIA [id number] [place] [address] [place] Oxygen (Bld) [Partial pressure] 218 mm Hg High 85-95 [facility] Comment on above: Order Comment: Speci men Type: ARTERIAL BLOOD SPECIMENOrdering Facility: [facility] Address: [address] [place] [address] Performed By: #### A LLBG ####[facility] LABCLIA [id number] [address] [address] [place] Oxygen adjusted to patient's actual temperature (Bld) [Partial pressure] 218 mmHg High 85-95 [facility] Comment on above: Order Comment: Speci men Type: ARTERIAL BLOOD SPECIMENOrdering Facility: [facility] Address: [address] [place] [address] Performed By: #### A LLBG ####[facility] LABCLIA [id number] [place] [address] [place] Oxyhemoglobin (BldA) [Mass fraction] 97 % Normal 95-98 [facility] Comment on above: Order Comment: Speci men Type: ARTERIAL BLOOD SPECIMENOrdering Facility: [facility] Address: [address] [place] [address] Performed By: #### A LLBG ####[facility] LABCLIA [id number] [place] [address] [place] pH (Bld) 7.39 [pH] Normal 7.35-7.45 [facility] Comment on above: Order Comment: Speci men Type: ARTERIAL BLOOD SPECIMENOrdering Facility: [facility] Address: [address] [place] [address] Performed By: #### A LLBG ####[facility] LABCLIA [id number] [place] [address] [place] pH adjusted to patient's actual temperature (Bld) 7.39 Normal 7.35-7.45 [facility] Comment on above: Order Comment: Speci men Type: ARTERIAL BLOOD SPECIMENOrdering Facility: [facility] Address: [address] [place] [address] Performed By: #### A LLBG ####[facility] LABCLIA [id number] [place] [address] [place] Potassium [Moles/Vol] 3.4 mmol/L Low 3.5-5.0 [facility] Comment on above: Order Comment: Speci men Type: ARTERIAL BLOOD SPECIMENOrdering Facility: [facility] Address: [address] [place] [address] Performed By: #### A LLBG ####[facility] LABCLIA [id number] [place] [address] [place] Sodium [Moles/Vol] 140 mmol/L Normal 136-144 [facility] Comment on above: Order Comment: Speci men Type: ARTERIAL BLOOD SPECIMENOrdering Facility: [facility] Address: [address] [place] [address] Performed By: #### A LLBG ####[facility] LABIA [id number] [place] [address] [place] Base excess Calc (Bld) [Moles/Vol] 2 mmol/L Normal 0-2 [facility] Comment on above: Order Comment: Speci men Type: ARTERIAL BLOOD SPECIMENOrdering Facility: [facility] Address: [address] [place] [address] Performed By: #### A LLBG ####[facility] LABIA [id number] [place] [address] [place] Calcium.ionized (Bld) [Mass/Vol] 1.23 mmol/L Normal 1.08-1.30 [facility] Comment on above: Order Comment: Speci men Type: ARTERIAL BLOOD SPECIMENOrdering Facility: [facility] Address: [address] [place] [address] Performed By: #### A LLBG ####[facility] LABIA [id number] [place] [address] [place] Calcium.ionized adjusted to pH 7.4 (BldA) [Moles/Vol] 1.24 mmol/L Normal 1.08-1.30 [facility] Comment on above: Order Comment: Speci men Type: ARTERIAL BLOOD SPECIMENOrdering Facility: [facility] Address: [address] [place] [address] Performed By: #### A LLBG ####[facility] LABCLIA [id number] [place] [address] [place] Carboxyhemoglobin (BldA) [Mass fraction] 1.3 % Normal 0.0-2.0 [facility] Comment on above: Order Comment: Speci men Type: ARTERIAL BLOOD SPECIMENOrdering Facility: [facility] Address: [address] [place] [address] Result Comment: Carb oxyhemoglobin Reference Range for Smokers: 2.0-8.0% Performed By: #### A LLBG ####[facility] LABCLIA [id number] [place] [address] [place] CO2 (Bld) [Partial pressure] 42 mm Hg Normal 36-46 [facility] Comment on above: Order Comment: Speci men Type: ARTERIAL BLOOD SPECIMENOrdering Facility: [facility] Address: [address] [place] [address] Performed By: #### A LLBG ####[facility] LABCLIA [id number] [place] [address] [place] CO2 adjusted to patient's actual temperature (Bld) [Partial pressure] 42 mmHg Normal 36-46 [facility] Comment on above: Order Comment: Speci men Type: ARTERIAL BLOOD SPECIMENOrdering Facility: [facility] Address: [address] [place] [address] Performed By: #### A LLBG ####[facility] LABCLIA [id number] [place] [address] [place] Glucose [Mass/Vol] 110 mg/dL High 60-105 [facility] Comment on above: Order Comment: Speci men Type: ARTERIAL BLOOD SPECIMENOrdering Facility: [facility] Address: [address] [place] [address] Performed By: #### A LLBG ####[facility] LABCLIA [id number] [place] [address] [place] HCO3 (Bld) [Moles/Vol] 26 mmol/L Normal 22-26 [facility] Comment on above: Order Comment: Speci men Type: ARTERIAL BLOOD SPECIMENOrdering Facility: [facility] Address: [address] [place] [address] Performed By: #### A LLBG ####[facility] LABCLIA [id number] [place] [address] [place] Hematocrit (Bld) [Volume fraction] 37.1 % Low 39.0-51.0 [facility] Comment on above: Order Comment: Speci men Type: ARTERIAL BLOOD SPECIMENOrdering Facility: [facility] Address: [address] [place] [address] Performed By: #### A LLBG ####[facility] LABIA [id number] [place] [address] [place] Hemoglobin (Bld) [Mass/Vol] 12.1 g/dL Low 13.0-17.0 [facility] Comment on above: Order Comment: Speci men Type: ARTERIAL BLOOD SPECIMENOrdering Facility: [facility] Address: [address] [place] [address] Performed By: #### A LLBG ####[facility] LABCLIA [id number] [place] [address] [place] Lactate [Moles/Vol] 0.9 mmol/L Normal 0.5-2.2 [facility] Comment on above: Order Comment: Speci men Type: ARTERIAL BLOOD SPECIMENOrdering Facility: [facility] Address: [address] [place] [address] Performed By: #### A LLBG ####[facility] LABCLIA [id number] [place] [address] [place] Methemoglobin (Bld) [Mass fraction] 0.9 % Normal 0.0-1.5 [facility] Comment on above: Order Comment: Speci men Type: ARTERIAL BLOOD SPECIMENOrdering Facility: [facility] Address: [address] [place] [address] Performed By: #### A LLBG ####[facility] LABCLIA [id number] [place] [address] [place] Oxygen (Bld) [Partial pressure] 100 mm Hg High 85-95 [facility] Comment on above: Order Comment: Speci men Type: ARTERIAL BLOOD SPECIMENOrdering Facility: [facility] Address: [address] [place] [address] Performed By: #### A LLBG ####[facility] LABCLIA [id number] [place] [address] [place] Oxygen adjusted to patient's actual temperature (Bld) [Partial pressure] 100 mmHg High 85-95 [facility] Comment on above: Order Comment: Speci men Type: ARTERIAL BLOOD SPECIMENOrdering Facility: [facility] Address: [address] [place] [address] Performed By: #### A LLBG ####[facility] LABCLIA [id number] [place] [address] [place] Oxyhemoglobin (BldA) [Mass fraction] 96 % Normal 95-98 [facility] Comment on above: Order Comment: Speci men Type: ARTERIAL BLOOD SPECIMENOrdering Facility: [facility] Address: [address] [place] [address] Performed By: #### A LLBG ####[facility] LABCLIA [id number] [place] [address] [place] pH (Bld) 7.42 [pH] Normal 7.35-7.45 [facility] Comment on above: Order Comment: Speci men Type: ARTERIAL BLOOD SPECIMENOrdering Facility: [facility] Address: [address] [place] [address] Performed By: #### A LLBG ####[facility] LABCLIA [id number] [place] [address] [place] pH adjusted to patient's actual temperature (Bld) 7.42 Normal 7.35-7.45 [facility] Comment on above: Order Comment: Speci men Type: ARTERIAL BLOOD SPECIMENOrdering Facility: [facility] Address: [address] [place] [address] Performed By: #### A LLBG ####[facility] LABCLIA [id number] [place] [address] [place] Potassium [Moles/Vol] 3.6 mmol/L Normal 3.5-5.0 [facility] Comment on above: Order Comment: Speci men Type: ARTERIAL BLOOD SPECIMENOrdering Facility: [facility] Address: [address] [place] [address] Performed By: #### A LLBG ####[facility] LABCLIA [id number] [place] [address] [place] Sodium [Moles/Vol] 140 mmol/L Normal 136-144 [facility] Comment on above: Order Comment: Speci men Type: ARTERIAL BLOOD SPECIMENOrdering Facility: [facility] Address: [address] [place] [address] Performed By: #### A LLBG ####[facility] LABCLIA [id number] [place] [address] [place] CBC panel Auto (Bld)on 10-28 Erythrocyte distribution width (RBC) [Ratio] 16.8 % High 11.5-15.0 [facility] Comment on above: Order Comment: Speci men Type: BLOOD SPECIMENOrdering Facility: [facility] Address: [address] [place] [address] Performed By: #### 5 8410-2 ####[facility] LABCLIA [id number] [address] [address] [place] Hematocrit (Bld) [Volume fraction] 29.5 % Low 39.0-51.0 [facility] Comment on above: Order Comment: Speci men Type: BLOOD SPECIMENOrdering Facility: [facility] Address: [address] [place] [address] Performed By: #### 5 8410-2 ####[facility] LABCLIA [id number] [place] [address] [place] Hemoglobin (Bld) [Mass/Vol] 9.4 g/dL Low 13.0-17.0 [facility] Comment on above: Order Comment: Speci men Type: BLOOD SPECIMENOrdering Facility: [facility] Address: [address] [place] [address] Performed By: #### 5 8410-2 ####[facility] LABIA [id number] [place] [address] [place] MCH (RBC) [Entitic mass] 26.9 pg Normal 26.0-34.0 [facility] Comment on above: Order Comment: Speci men Type: BLOOD SPECIMENOrdering Facility: [facility] Address: [address] [place] [address] Performed By: #### 5 8410-2 ####[facility] LABIA [id number] [place] [address] [place] MCHC (RBC) [Mass/Vol] 31.9 g/dL Normal 30.5-36.0 [facility] Comment on above: Order Comment: Speci men Type: BLOOD SPECIMENOrdering Facility: [facility] Address: [address] [place] [address] Performed By: #### 5 8410-2 ####[facility] LABIA [id number] [place] [address] [place] MCV (RBC) [Entitic vol] 84.5 fL Normal 80.0-100.0 [facility] Comment on above: Order Comment: Speci men Type: BLOOD SPECIMENOrdering Facility: [facility] Address: [address] [place] [address] Performed By: #### 5 8410-2 ####[facility] LABIA [id number] [place] [address] [place] Nucleated RBC (Bld) [#/Vol] 10*3/uL Normal <0.01 [facility] Comment on above: Order Comment: Speci men Type: BLOOD SPECIMENOrdering Facility: [facility] Address: [address] [place] [address] Performed By: #### 5 8410-2 ####[facility] [id number] [place] [address] [place] Platelet mean volume (Bld) [Entitic vol] 11.6 fL Normal 9.0-12.7 [facility] Comment on above: Order Comment: Speci men Type: BLOOD SPECIMENOrdering Facility: [facility] Address: [address] [place] [address] Performed By: #### 5 8410-2 ####[facility] [id number] [place] [address] [place] Platelets (Bld) [#/Vol] 132 10*3/uL Low 150-400 [facility] Comment on above: Order Comment: Speci men Type: BLOOD SPECIMENOrdering Facility: [facility] Address: [address] [place] [address] Result Comment: Resu lts checked and verified.No clot detected. Performed By: #### 5 8410-2 ####[facility] LABIA [id number] [place] [address] [place] RBC (Bld) [#/Vol] 3.49 10*6/uL Low 4.20-6.00 [facility] Comment on above: Order Comment: Speci men Type: BLOOD SPECIMENOrdering Facility: [facility] Address: [address] [place] [address] Performed By: #### 5 8410-2 ####[facility] LABCLIA [id number] [place] [address] [place] WBC (Bld) [#/Vol] 14.53 10*3/uL High 3.70-11.00 [facility] Comment on above: Order Comment: Speci men Type: BLOOD SPECIMENOrdering Facility: [facility] Address: [address] [place] [address] Performed By: #### 5 8410-2 ####[facility] LABCLIA [id number] [place] [address] [place] CNOVon 10-28-2023 CNOV Normal [facility] ECG COMPLETEon 10-28-2023 ECG COMPLETE Normal [facility] Fibrinogen PPP-mCncon 2022 Fibrinogen Coag (PPP) [Mass/Vol] 240 mg/dL Normal 200-400 [facility] Comment on above: Order Comment: Speci men Type: BLOOD SPECIMENOrdering Facility: [facility] Address: [address] [place] [address] Performed By: #### 3 255-7, 22988-3, 24777-2 ####[facility] LABIA [id number] [place] [address] [place] Fibrinogen Coag (PPP) [Mass/Vol] 236 mg/dL Normal 200-400 [facility] Comment on above: Order Comment: Speci men Type: BLOOD SPECIMENOrdering Facility: [facility] Address: [address] [place] [address] Performed By: #### 3 255-7, 63703-2 ####[facility] LABIA [id number] [place] [id number] [place] GLOBAL HEMOSTASISon 10-28-20 23 CITRATED FUNCTIONAL FIBRINOGEN LEVEL 343.1 mg/dL Normal 278.0-581.0 [facility] Comment on above: Order Comment: Speci men Type: BLOOD SPECIMENOrdering Facility: [facility] Address: [address] [place] [address] Performed By: #### T EGGLBL ####[facility] LABIA [id number] [place] [address] [place] Clot angle TEG (Bld) [Angle] 73.2 degrees Normal 63.0-78.0 [facility] Comment on above: Order Comment: Speci men Type: BLOOD SPECIMENOrdering Facility: [facility] Address: [address] [place] [address] Performed By: #### T EGGLBL ####[facility] LABIA [id number] [place] [address] [place] Clot formation TEG (Bld) [Time] 1.3 minutes Normal 0.8-2.1 [facility] Comment on above: Order Comment: Speci men Type: BLOOD SPECIMENOrdering Facility: [facility] Address: [address] [place] [address] Performed By: #### T EGGLBL ####[facility] LABIA [id number] [place] [address] [place] Clotting time after addition of heparinase TEG (Bld) 4.7 minutes Normal 4.3-8.3 [facility] Comment on above: Order Comment: Speci men Type: BLOOD SPECIMENOrdering Facility: [facility] Address: [address] [place] [address] Performed By: #### T EGGLBL ####[facility] LABIA [id number] [place] [address] [place] Clotting time.extrinsic coagulation system activated Rotational TEG (Bld) 6.0 minutes Normal 4.6-9.1 [facility] Comment on above: Order Comment: Speci men Type: BLOOD SPECIMENOrdering Facility: [facility] Address: [address] [place] [address] Performed By: #### T EGGLBL ####[facility] LABCLIA [id number] [address] [place] Maximum clot firmness TEG (Bld) [Length] 60.5 mm Normal 52.0-69.0 [facility] Comment on above: Order Comment: Alexandroi men Type: BLOOD SPECIMENOrdering Facility: [facility] Address: [address] [place] [address] Performed By: #### T EGGLBL ####[id number] [address] Maximum clot firmness.extrinsic coagulation system activated.platelets inhibited Rotational TEG (Bld) [Length] 56.9 mm Normal 52.0-70.0 [facility] Comment on above: Order Comment: Alexandroi men Type: BLOOD SPECIMENOrdering Facility: [facility] Address: [address] [place] [address] Result Comment: 18.8 Performed By: #### T EGGLBL ####[facility] [id number] [place] [address] [place] THROMBOGRAPH INTERP Normal [facility] Comment on above: Order Comment: Alexandroi men Type: BLOOD SPECIMENOrdering Facility: [facility] Address: [address] [place] [address] Result Comment: A th romboelastograph (TEG) study was performed using citrate-anticoagulated whole blood treated with and without heparinase to neutralize a heparin effect. The R value, a measure of coagulation function, is within the normal range. This indicates normal coagulation function. The K time (K), a measure of time to clot formation is normal. This is indicative of normal fibrinogen and platelet function. The angle, a measure of fibrinogen function, is within normal range. This is indicative of normal fibrinogen concentration or function. The Maximal Amplitude (MA), a measure of platelet function, is within the normal range. The fibrinogen contribution clot formation is normal. Performed By: #### T EGGLBL ####[facility] LABIA [id number] [address] [place] Gas and Carbon monoxide pane l (BldV)on 10-28-2023 Base excess Calc (BldV) [Moles/Vol] 1 mmol/L Normal 0-2 [facility] Comment on above: Order Comment: Speci men Type: VENOUS BLOOD SPECIMENOrdering Facility: [facility] Address: [address] [place] [address] Performed By: #### 2 4344-4 ####[facility] LABCLIA [id number] [place] [address] [place] Calcium.ionized (Bld) [Mass/Vol] 1.15 mmol/L Normal 1.08-1.30 [facility] Comment on above: Order Comment: Speci men Type: VENOUS BLOOD SPECIMENOrdering Facility: [facility] Address: [address] [place] [address] Performed By: #### 2 4344-4 ####[facility] LABCLIA [id number] [place] [address] [place] Calcium.ionized adjusted to pH 7.4 (BldA) [Moles/Vol] 1.13 mmol/L Normal 1.08-1.30 [facility] Comment on above: Order Comment: Speci men Type: VENOUS BLOOD SPECIMENOrdering Facility: [facility] Address: [address] [place] [address] Performed By: #### 2 4344-4 ####[facility] LABCLIA [id number] [place] [address] [place] Carboxyhemoglobin (BldV) [Mass fraction] 2.0 % Normal 0.0-2.0 [facility] Comment on above: Order Comment: Speci men Type: VENOUS BLOOD SPECIMENOrdering Facility: [facility] Address: [address] [place] [address] Result Comment: Carb oxyhemoglobin Reference Range for Smokers: 2.0-8.0% Performed By: #### 2 4344-4 ####[facility] LABCLIA [id number] [place] [address] [place] CO2 (BldV) [Partial pressure] 46 mm[Hg] Normal 42-55 [facility] Comment on above: Order Comment: Speci men Type: VENOUS BLOOD SPECIMENOrdering Facility: [facility] Address: [address] [place] [address] Performed By: #### 2 4344-4 ####[facility] LABCLIA [id number] [place] [address] [place] CO2 adjusted to patient's actual temperature (BldV) [Partial pressure] 46 mmHg Normal 42-55 [facility] Comment on above: Order Comment: Speci men Type: VENOUS BLOOD SPECIMENOrdering Facility: [facility] Address: [address] [place] [address] Performed By: #### 2 4344-4 ####[facility] LABCLIA [id number] [place] [address] [place] Glucose [Mass/Vol] 170 mg/dL High 60-105 [facility] Comment on above: Order Comment: Speci men Type: VENOUS BLOOD SPECIMENOrdering Facility: [facility] Address: [address] [place] [address] Performed By: #### 2 4344-4 ####[facility] LABCLIA [id number] [place] [address] [place] HCO3 (Bld) [Moles/Vol] 26 mmol/L Normal 24-28 [facility] Comment on above: Order Comment: Speci men Type: VENOUS BLOOD SPECIMENOrdering Facility: [facility] Address: [address] [place] [address] Performed By: #### 2 4344-4 ####[facility] LABCLIA [id number] [place] [address] [place] Hematocrit (Bld) [Volume fraction] 28.9 % Low 39.0-51.0 [facility] Comment on above: Order Comment: Speci men Type: VENOUS BLOOD SPECIMENOrdering Facility: [facility] Address: [address] [place] [address] Performed By: #### 2 4344-4 ####[facility] LABCLIA [id number] [place] [address] [place] Hemoglobin (Bld) [Mass/Vol] 9.3 g/dL Low 13.0-17.0 [facility] Comment on above: Order Comment: Speci men Type: VENOUS BLOOD SPECIMENOrdering Facility: [facility] Address: [address] [place] [address] Performed By: #### 2 4344-4 ####[facility] LABIA [id number] [place] [address] [place] Lactate [Moles/Vol] 1.0 mmol/L Normal 0.5-2.2 [facility] Comment on above: Order Comment: Speci men Type: VENOUS BLOOD SPECIMENOrdering Facility: [facility] Address: [address] [place] [address] Performed By: #### 2 4344-4 ####[facility] LABIA [id number] [place] [address] [place] Methemoglobin (Bld) [Mass fraction] 1.5 % Normal 0.0-1.5 [facility] Comment on above: Order Comment: Speci men Type: VENOUS BLOOD SPECIMENOrdering Facility: [facility] Address: [address] [place] [address] Performed By: #### 2 4344-4 ####[facility] LABIA [id number] [place] [address] [place] Oxygen (BldV) [Partial pressure] 92 mm[Hg] High 35-45 [facility] Comment on above: Order Comment: Speci men Type: VENOUS BLOOD SPECIMENOrdering Facility: [facility] Address: [address] [place] [address] Performed By: #### 2 4344-4 ####[facility] LABIA [id number] [place] [address] [place] Oxygen adjusted to patient's actual temperature (BldV) [Partial pressure] 92 mmHg High 35-45 [facility] Comment on above: Order Comment: Speci men Type: VENOUS BLOOD SPECIMENOrdering Facility: [facility] Address: [address] [place] [address] Performed By: #### 2 4344-4 ####[facility] LABCLIA [id number] [place] [address] [place] Oxygen saturation in Venous blood 98 % High 60-85 [facility] Comment on above: Order Comment: Speci men Type: VENOUS BLOOD SPECIMENOrdering Facility: [facility] Address: [address] [place] [address] Performed By: #### 2 4344-4 ####[facility] LABCLIA [id number] [place] [address] [place] Oxyhemoglobin (BldV) [Mass fraction] 94 % High 60-85 [facility] Comment on above: Order Comment: Speci men Type: VENOUS BLOOD SPECIMENOrdering Facility: [facility] Address: [address] [place] [address] Performed By: #### 2 4344-4 ####[facility] LABCLIA [id number] [place] [address] [place] pH (BldV) 7.38 [pH] Normal 7.32-7.42 [facility] Comment on above: Order Comment: Speci men Type: VENOUS BLOOD SPECIMENOrdering Facility: [facility] Address: [address] [place] [address] Performed By: #### 2 4344-4 ####[facility] LABCLIA [id number] [place] [address] [place] pH adjusted to patient's actual temperature (BldV) 7.38 Normal 7.32-7.42 [facility] Comment on above: Order Comment: Speci men Type: VENOUS BLOOD SPECIMENOrdering Facility: [facility] Address: [address] [place] [address] Performed By: #### 2 4344-4 ####[facility] LABCLIA [id number] [place] [address] [place] Potassium [Moles/Vol] 3.8 mmol/L Normal 3.5-5.0 [facility] Comment on above: Order Comment: Speci men Type: VENOUS BLOOD SPECIMENOrdering Facility: [facility] Address: [address] [place] [address] Performed By: #### 2 4344-4 ####[facility] LABCLIA [id number] [place] [address] [place] Sodium [Moles/Vol] 137 mmol/L Normal 136-144 [facility] Comment on above: Order Comment: Speci men Type: VENOUS BLOOD SPECIMENOrdering Facility: [facility] Address: [address] [place] [address] Performed By: #### 2 4344-4 ####[facility] LABCLIA [id number] [place] [address] [place] INTRAOPERATIVE ECHO PREon INTRAOPERATIVE ECHO PRE Normal [facility] OPERATIVE NOon 10-28-2023 OPERATIVE NO Normal [facility] PT panel Coag (PPP)on 2022 INR Coag (PPP) [Relative time] 1.2 {INR} Normal 0.9-1.3 [facility] Comment on above: Order Comment: Speci men Type: BLOOD SPECIMENOrdering Facility: [facility] Address: [address] [place] [address] Result Comment: Calli min K Antagonist (VKA) Therapeutic Range: INR 2 to 3 (Target INR of 2.5)Note: For patients treated with VKA drugs, such as warfarin, the [employer] 2012 Guideline recommends a therapeutic INR range of 2 to 3 (target INR of 2.5). This recommendation includes high-risk patients with antiphospholipid syndrome with previous arterial or venous thromboembolism, current-generation mechanical or bioprosthetic aortic heart valve replacement.Note: Patients with mechanical aortic valve replacement and additional risk factors for thromboembolic events (atrial fibrillation, previous thromboembolism, LV dysfunction, hypercoagulable conditions) or an older generation mechanical AVR (i.e., ball in-Cage) or any mechanical MVR should have a INR therapeutic range of 2.5 to 3.5 (target INR of 3).Roe MOORE, et al. Chest 2012, 141:7S-47SKelton RA, et al. [facility] 2017, 70: 252-289 Performed By: #### 3 255-7, 43442-8, 14766-3 ####[facility] [id number] [place] [address] [place] PT Coag (PPP) [Time] 13.0 s Normal 9.7-13.0 [facility] Comment on above: Order Comment: Enma perry Type: BLOOD SPECIMENOrdering Facility: [facility] Address: [address] [place] [address] Performed By: #### 3 255-7, 46668-5, 02206-5 ####[facility] [id number] [place] [address] [place] INR Coag (PPP) [Relative time] 1.4 {INR} High 0.9-1.3 [facility] Comment on above: Order Comment: Enma perry Type: BLOOD SPECIMENOrdering Facility: [facility] Address: [address] [place] [address] Result Comment: Calli min K Antagonist (VKA) Therapeutic Range: INR 2 to 3 (Target INR of 2.5)Note: For patients treated with VKA drugs, such as warfarin, the [employer] 2012 Guideline recommends a therapeutic INR range of 2 to 3 (target INR of 2.5). This recommendation includes high-risk patients with antiphospholipid syndrome with previous arterial or venous thromboembolism, current-generation mechanical or bioprosthetic aortic heart valve replacement.Note: Patients with mechanical aortic valve replacement and additional risk factors for thromboembolic events (atrial fibrillation, previous thromboembolism, LV dysfunction, hypercoagulable conditions) or an older generation mechanical AVR (i.e., ball in-Cage) or any mechanical MVR should have a INR therapeutic range of 2.5 to 3.5 (target INR of 3).Liztt GH, et al. Chest 2012, 141:7S-47SNishimura RA, et al. [facility] 2017, 70: 252-289 Performed By: #### 3 255-7, 40912-7 ####[facility] LABCLIA [id number] [place] [address] [place] PT Coag (PPP) [Time] 14.3 s High 9.7-13.0 [facility] Comment on above: Order Comment: Speci men Type: BLOOD SPECIMENOrdering Facility: [facility] Address: [address] [place] [address] Performed By: #### 3 255-7, 46187-7 ####[facility] LABIA [id number] [place] [address] [place] Platelets Auto (Bld) [#/Vol] on 10-28-2023 Platelets (Bld) [#/Vol] 111 10*3/uL Low 150-400 [facility] Comment on above: Order Comment: Speci men Type: BLOOD SPECIMENOrdering Facility: [facility] Address: [address] [place] [address] Result Comment: Resu lts checked and verified.No clot detected. Performed By: #### 7 77-3 ####[facility] LABIA [id number] [place] [address] [place] STAPH AUREUS PCRon 3 S. aureus and MRSA panel DEVENDRA+probe (Nose) Normal Negative [facility] Comment on above: Order Comment: Speci men Type: SWAB OF INTERNAL NOSEOrdering Facility: [facility] Address: [address] [place] [address] Result Comment: Nega tive for Staphylococcus aureus by PCR.Negative for MRSA by PCR Performed By: #### S APCR ####[facility] LABCLIA [id number] [place] [address] [place] US LEG VEIN MAP RYLEE VAS LABo n 10-28-2023 US LEG VEIN MAP RYLEE VAS LAB Normal [facility] US RADIAL ARTERY MAP RYLEE VAS LABon 10-28-2023 US RADIAL ARTERY MAP RYLEE VAS LAB Normal [facility] XR CHEST 1V FRONTAL PORTon 1 12-29-2022 XR CHEST 1V FRONTAL PORT Normal [facility] aPTT PPPon 10-28-2023 aPTT Coag (PPP) [Time] 27.8 s Normal 23.0-32.4 [facility] Comment on above: Order Comment: Speci men Type: BLOOD SPECIMENOrdering Facility: [facility] Address: [address] [place] [address] Performed By: #### 3 255-7, 19401-1, 77652-4 ####[facility] LABCLIA [id number] [place] [address] [place] CBC W Auto Differential pane l (Bld)on 10-27-2023 Basophils (Bld) [#/Vol] 0.06 10*3/uL Normal <0.11 [facility] Comment on above: Order Comment: Speci men Type: BLOOD SPECIMENOrdering Facility: [facility] Address: [address] [place] [address] Performed By: #### 5 7021-8 ####[facility] LABCLIA [id number] [place] [address] [place] Basophils/100 WBC (Bld) 0.7 % Normal [facility] Comment on above: Order Comment: Speci men Type: BLOOD SPECIMENOrdering Facility: [facility] Address: [address] [place] [address] Performed By: #### 5 7021-8 ####[facility] LABCLIA [id number] [place] [address] [place] Differential cell count method Nom (Bld) Auto Normal [facility] Comment on above: Order Comment: Speci men Type: BLOOD SPECIMENOrdering Facility: [facility] Address: [address] [place] [address] Performed By: #### 5 7021-8 ####[facility] LABCLIA [id number] [place] [address] [place] Eosinophils (Bld) [#/Vol] 0.28 10*3/uL Normal <0.46 [facility] Comment on above: Order Comment: Speci men Type: BLOOD SPECIMENOrdering Facility: [facility] Address: [address] [place] [address] Performed By: #### 5 7021-8 ####[facility] LABCLIA [id number] [place] [address] [place] Eosinophils/100 WBC (Bld) 3.5 % Normal [facility] Comment on above: Order Comment: Speci men Type: BLOOD SPECIMENOrdering Facility: [facility] Address: [address] [place] [address] Performed By: #### 5 7021-8 ####[facility] LABCLIA [id number] [place] [address] [place] Erythrocyte distribution width (RBC) [Ratio] 17.0 % High 11.5-15.0 [facility] Comment on above: Order Comment: Speci men Type: BLOOD SPECIMENOrdering Facility: [facility] Address: [address] [place] [address] Performed By: #### 5 7021-8 ####[facility] LABCLIA [id number] [place] [address] [place] Hematocrit (Bld) [Volume fraction] 39.6 % Normal 39.0-51.0 [facility] Comment on above: Order Comment: Speci men Type: BLOOD SPECIMENOrdering Facility: [facility] Address: [address] [place] [address] Performed By: #### 5 7021-8 ####[facility] LABCLIA [id number] [place] [address] [place] Hemoglobin (Bld) [Mass/Vol] 12.3 g/dL Low 13.0-17.0 [facility] Comment on above: Order Comment: Speci men Type: BLOOD SPECIMENOrdering Facility: [facility] Address: [address] [place] [address] Performed By: #### 5 7021-8 ####[facility] LABCLIA [id number] [place] [address] [place] Immature granulocytes (Bld) [#/Vol] 0.06 10*3/uL Normal <0.10 [facility] Comment on above: Order Comment: Speci men Type: BLOOD SPECIMENOrdering Facility: [facility] Address: [address] [place] [address] Performed By: #### 5 7021-8 ####[facility] LABCLIA [id number] [place] [address] [place] Immature granulocytes/100 WBC (Bld) 0.7 % Normal [facility] Comment on above: Order Comment: Speci men Type: BLOOD SPECIMENOrdering Facility: [facility] Address: [address] [place] [address] Performed By: #### 5 7021-8 ####[facility] LABCLIA [id number] [place] [address] [place] Lymphocytes (Bld) [#/Vol] 1.00 10*3/uL Normal 1.00-4.00 [facility] Comment on above: Order Comment: Speci men Type: BLOOD SPECIMENOrdering Facility: [facility] Address: [address] [place] [address] Performed By: #### 5 7021-8 ####[facility] LABCLIA [id number] [place] [address] [place] Lymphocytes/100 WBC (Bld) 12.5 % Normal [facility] Comment on above: Order Comment: Speci men Type: BLOOD SPECIMENOrdering Facility: [facility] Address: [address] [place] [address] Performed By: #### 5 7021-8 ####[facility] LABIA [id number] [place] [address] [place] MCH (RBC) [Entitic mass] 26.6 pg Normal 26.0-34.0 [facility] Comment on above: Order Comment: Speci men Type: BLOOD SPECIMENOrdering Facility: [facility] Address: [address] [place] [address] Performed By: #### 5 7021-8 ####[facility] LABIA [id number] [place] [address] [place] MCHC (RBC) [Mass/Vol] 31.1 g/dL Normal 30.5-36.0 [facility] Comment on above: Order Comment: Speci men Type: BLOOD SPECIMENOrdering Facility: [facility] Address: [address] [place] [address] Performed By: #### 5 7021-8 ####[facility] LABIA [id number] [place] [address] [place] MCV (RBC) [Entitic vol] 85.7 fL Normal 80.0-100.0 [facility] Comment on above: Order Comment: Speci men Type: BLOOD SPECIMENOrdering Facility: [facility] Address: [address] [place] [address] Performed By: #### 5 7021-8 ####[facility] LABIA [id number] [place] [address] [place] Monocytes (Bld) [#/Vol] 0.58 10*3/uL Normal <0.87 [facility] Comment on above: Order Comment: Speci men Type: BLOOD SPECIMENOrdering Facility: [facility] Address: [address] [place] [address] Performed By: #### 5 7021-8 ####[facility] LABCLIA [id number] [place] [address] [place] Monocytes/100 WBC (Bld) 7.2 % Normal [facility] Comment on above: Order Comment: Speci men Type: BLOOD SPECIMENOrdering Facility: [facility] Address: [address] [place] [address] Performed By: #### 5 7021-8 ####[facility] LABCLIA [id number] [place] [address] [place] Neutrophils (Bld) [#/Vol] 6.05 10*3/uL Normal 1.45-7.50 [facility] Comment on above: Order Comment: Speci men Type: BLOOD SPECIMENOrdering Facility: [facility] Address: [address] [place] [address] Performed By: #### 5 7021-8 ####[facility] LABCLIA [id number] [place] [address] [place] Neutrophils/100 WBC (Bld) 75.4 % Normal [facility] Comment on above: Order Comment: Speci men Type: BLOOD SPECIMENOrdering Facility: [facility] Address: [address] [place] [address] Performed By: #### 5 7021-8 ####[facility] LABCLIA [id number] [place] [address] [place] Nucleated RBC (Bld) [#/Vol] 10*3/uL Normal <0.01 [facility] Comment on above: Order Comment: Speci men Type: BLOOD SPECIMENOrdering Facility: [facility] Address: [address] [place] [address] Performed By: #### 5 7021-8 ####[facility] LABCLIA [id number] [place] [address] [place] Nucleated RBC/100 WBC (Bld) [Ratio] 0.0 /100 WBC Normal [facility] Comment on above: Order Comment: Speci men Type: BLOOD SPECIMENOrdering Facility: [facility] Address: [address] [place] [address] Performed By: #### 5 7021-8 ####[facility] LABCLIA [id number] [place] [address] [place] Platelet mean volume (Bld) [Entitic vol] 11.9 fL Normal 9.0-12.7 [facility] Comment on above: Order Comment: Speci men Type: BLOOD SPECIMENOrdering Facility: [facility] Address: [address] [place] [address] Performed By: #### 5 7021-8 ####[facility] LABCLIA [id number] [place] [address] [place] Platelets (Bld) [#/Vol] 160 10*3/uL Normal 150-400 [facility] Comment on above: Order Comment: Speci men Type: BLOOD SPECIMENOrdering Facility: [facility] Address: [address] [place] [address] Performed By: #### 5 7021-8 ####[facility] LABCLIA [id number] [place] [address] [place] RBC (Bld) [#/Vol] 4.62 10*6/uL Normal 4.20-6.00 [facility] Comment on above: Order Comment: Speci men Type: BLOOD SPECIMENOrdering Facility: [facility] Address: [address] [place] [address] Performed By: #### 5 7021-8 ####[facility] LABCLIA [id number] [place] [address] [place] WBC (Bld) [#/Vol] 8.03 10*3/uL Normal 3.70-11.00 [facility] Comment on above: Order Comment: Speci men Type: BLOOD SPECIMENOrdering Facility: [facility] Address: [address] [place] [address] Performed By: #### 5 7021-8 ####[facility] LABCLIA [id number] [place] [address] [place] CNCNPATEDon 10-27-2023 CNCNPATED Normal [facility] CNCOon 10-27-2023 CNCO Letter Text Normal [facility] CNOVon 10-27-2023 CNOV Normal [facility] CNOV Normal [facility] CNOV Normal [facility] CONFIRM BLOOD TYPEon 023 ABO O Normal [facility] Comment on above: Order Comment: Speci men Type: BLOOD SPECIMENOrdering Facility: [facility] Address: [address] [place] [address] Performed By: #### C ONABO ####[facility] [id number] [place] [address] [place] Rh Nom (Bld) Negative Normal [facility] Comment on above: Order Comment: Speci men Type: BLOOD SPECIMENOrdering Facility: [facility] Address: [address] [place] [address] Performed By: #### C ONABO ####[facility] [id number] [place] [address] [place] Comprehensive metabolic 2000 panelon 10-27-2023 Albumin [Mass/Vol] 4.5 g/dL Normal 3.9-4.9 [facility] Comment on above: Order Comment: Speci men Type: BLOOD SPECIMENOrdering Facility: [facility] Address: [address] [place] [address] Performed By: #### 2 4323-8, 2532-0 ####[facility] LABIA [id number] [place] [address] [place] ALP [Catalytic activity/Vol] 93 U/L Normal 38-113 [facility] Comment on above: Order Comment: Speci men Type: BLOOD SPECIMENOrdering Facility: [facility] Address: [address] [place] [address] Performed By: #### 2 4323-8, 2532-0 ####[facility] LABCLIA [id number] [address] [address] [place] ALT [Catalytic activity/Vol] 19 U/L Normal 10-54 [facility] Comment on above: Order Comment: Speci men Type: BLOOD SPECIMENOrdering Facility: [facility] Address: [address] [place] [address] Performed By: #### 2 432-8, 2531-0 ####[facility] LABCLIA [id number] [place] [address] [place] Anion gap [Moles/Vol] 14 mmol/L Normal 9-18 [facility] Comment on above: Order Comment: Speci men Type: BLOOD SPECIMENOrdering Facility: [facility] Address: [address] [place] [address] Performed By: #### 2 4328, 2531-0 ####[facility] LABCLIA [id number] [place] [address] [place] AST [Catalytic activity/Vol] 18 U/L Normal 14-40 [facility] Comment on above: Order Comment: Speci men Type: BLOOD SPECIMENOrdering Facility: [facility] Address: [address] [place] [address] Performed By: #### 2 4328, 2531-0 ####[facility] LABCLIA [id number] [place] [address] [place] Bilirubin [Mass/Vol] 0.5 mg/dL Normal 0.2-1.3 [facility] Comment on above: Order Comment: Speci men Type: BLOOD SPECIMENOrdering Facility: [facility] Address: [address] [place] [address] Performed By: #### 2 432-8, 253-0 ####[facility] LABCLIA [id number] [place] [address] [place] Calcium [Mass/Vol] 9.9 mg/dL Normal 8.5-10.2 [facility] Comment on above: Order Comment: Speci men Type: BLOOD SPECIMENOrdering Facility: [facility] Address: [address] [place] [address] Performed By: #### 2 4323-8, 2531-0 ####[facility] LABCLIA [id number] [place] [address] [place] Chloride [Moles/Vol] 102 mmol/L Normal 97-105 [facility] Comment on above: Order Comment: Speci men Type: BLOOD SPECIMENOrdering Facility: [facility] Address: [address] [place] [address] Performed By: #### 2 432-8, 2531-0 ####[facility] LABCLIA [id number] [place] [address] [place] CO2 [Moles/Vol] 26 mmol/L Normal 22-30 [facility] Comment on above: Order Comment: Speci men Type: BLOOD SPECIMENOrdering Facility: [facility] Address: [address] [place] [address] Performed By: #### 2 432-8, 0 ####[facility] LABCLIA [id number] [place] [address] [place] Creatinine [Mass/Vol] 1.29 mg/dL High 0.73-1.22 [facility] Comment on above: Order Comment: Speci men Type: BLOOD SPECIMENOrdering Facility: [facility] Address: [address] [place] [address] Performed By: #### 2 4323-8, 2531-0 ####[facility] LABCL[facility] [id number] [place] [address] [place] Creatinine and Glomerular filtration rate.predicted panel (S/P/Bld) 61 mL/min/1.73m??? Normal >=60 [facility] Comment on above: Order Comment: Speci men Type: BLOOD SPECIMENOrdering Facility: [facility] Address: [address] [place] [address] Result Comment: Gisselle mated Glomerular Filtration Rate (eGFR) is calculated using the 2020 CKD-EPI creatinine equation. This equation utilizes serum creatinine, sex, and age as parameters. The creatinine assay has traceable calibration to isotope dilution-mass spectrometry. Refer to KDIGO guidelines for clinical interpretation. In patients with unstable renal function, e.g. those with acute kidney injury, the eGFR may not accurately reflect actual GFR. Performed By: #### 2 4323-8, 0 ####[facility] LABIA [id number] [place] [address] [place] Glucose [Mass/Vol] 137 mg/dL High 74-99 [facility] Comment on above: Order Comment: Specmitch perry Type: BLOOD SPECIMENOrdering Facility: [facility] Address: [address] [place] [address] Result Comment: The [place] Diabetes Association (ADA) provides guidance for cutoff values for fasting glucose and random glucose. The ADA defines fasting as no caloric intake for at least 8 hours. Fasting plasma glucose results between 100 to 125 mg/dL indicate increased risk for diabetes (prediabetes).Fasting plasma glucose results greater than or equal to 126 mg/dL meet the criteria for diagnosis of diabetes. In the absence of unequivocal hyperglycemia, results should be confirmed by repeat testing. In a patient with classic symptoms of hyperglycemia or hyperglycemic crisis, random plasma glucose results greater than or equal to 200 mg/dL meet the criteria for diagnosis of diabetes.Reference: Standards of Medical Care in Diabetes 2016, [place] Diabetes Association. Diabetes Care. 2016.39(Suppl 1). Performed By: #### 2 4323-8, 0 ####[facility] [id number] [place] [id number] [place] Potassium [Moles/Vol] 4.1 mmol/L Normal 3.7-5.1 [facility] Comment on above: Order Comment: Specmitch men Type: BLOOD SPECIMENOrdering Facility: [facility] Address: [address] [place] [address] Performed By: #### 2 4323-8, 2532-0 ####[facility] LABCLIA [id number] [address] [address] [place] Protein [Mass/Vol] 6.4 g/dL Normal 6.3-8.0 [facility] Comment on above: Order Comment: Speci men Type: BLOOD SPECIMENOrdering Facility: [facility] Address: [address] [place] [address] Performed By: #### 2 4323-8, 2531-0 ####[facility] LABIA [id number] [place] [address] [place] Sodium [Moles/Vol] 142 mmol/L Normal 136-144 [facility] Comment on above: Order Comment: Speci men Type: BLOOD SPECIMENOrdering Facility: [facility] Address: [address] [place] [address] Performed By: #### 2 4328, 2531-0 ####[facility] LABIA [id number] [place] [address] [place] Urea nitrogen [Mass/Vol] 26 mg/dL High 9-24 [facility] Comment on above: Order Comment: Speci men Type: BLOOD SPECIMENOrdering Facility: [facility] Address: [address] [place] [address] Performed By: #### 2 4323-8, 2531-0 ####[facility] LABIA [id number] [place] [address] [place] ECG COMPLETEon 10-27-2023 ECG COMPLETE Normal [facility] HISTORY PHYSICALon HISTORY PHYSICAL Normal [facility] HbA1c (Bld)on 10-27-2023 Average glucose Estimated from glycated hemoglobin (Bld) [Mass/Vol] 128 mg/dL Normal [facility] Comment on above: Order Comment: Speci men Type: BLOOD SPECIMENOrdering Facility: [facility] Address: [address] [place] [address] Result Comment: eAG: (Estimated average glucose) is a calculated value from HgbA1c and is senior sales representative of the average blood glucose level in the last 2-3 month period. Performed By: #### 5 5454-3 ####[facility] [id number] [place] [address] [place] HbA1c (Bld) [Mass fraction] 6.1 % High 4.3-5.6 [facility] Comment on above: Order Comment: Speci men Type: BLOOD SPECIMENOrdering Facility: [facility] Address: [address] [place] [address] Result Comment: [place] Diabetes Association guidelines indicate that patients with HgbA1c in the range 5.7-6.4% are at increased risk for development of diabetes, and intervention by lifestyle modification may be beneficial. HgbA1c greater or equal to 6.5% is considered diagnostic of diabetes. Performed By: #### 5 5454-3 ####[facility] [id number] [place] [address] [place] LDH SerPl-cCncon 10-27-2023 LDH [Catalytic activity/Vol] 171 U/L Normal 135-225 [facility] Comment on above: Order Comment: Enma perry Type: BLOOD SPECIMENOrdering Facility: [facility] Address: [address] [place] [address] Performed By: #### 2 4323-8, 2532-0 ####[facility] [id number] [place] [address] [place] Laboratory - Microbiology an d Antimicrobial susceptibilityon 10-27-2023 S. aureus and MRSA panel DEVENDRA+probe (Nose) Negative Negative [facility] PT panel Coag (PPP)on 2022 INR Coag (PPP) [Relative time] 1.0 {INR} Normal 0.9-1.3 [facility] Comment on above: Order Comment: Enma perry Type: BLOOD SPECIMENOrdering Facility: [facility] Address: [address] [place] [address] Result Comment: Calli min K Antagonist (VKA) Therapeutic Range: INR 2 to 3 (Target INR of 2.5)Note: For patients treated with VKA drugs, such as warfarin, the [place] [employer] 2012 Guideline recommends a therapeutic INR range of 2 to 3 (target INR of 2.5). This recommendation includes high-risk patients with antiphospholipid syndrome with previous arterial or venous thromboembolism, current-generation mechanical or bioprosthetic aortic heart valve replacement.Note: Patients with mechanical aortic valve replacement and additional risk factors for thromboembolic events (atrial fibrillation, previous thromboembolism, LV dysfunction, hypercoagulable conditions) or an older generation mechanical AVR (i.e., ball in-Cage) or any mechanical MVR should have a INR therapeutic range of 2.5 to 3.5 (target INR of 3).Roe GH, et al. Chest 2012, 141:7S-47SNishimura RA, et al. [facility] 2017, 70: 252-289 Performed By: #### 1 4979-9, 05995-7 ####[facility] LABCLIA [id number] [place] [address] [place] PT Coag (PPP) [Time] 10.9 s Normal 9.7-13.0 [facility] Comment on above: Order Comment: Speci men Type: BLOOD SPECIMENOrdering Facility: [facility] Address: [address] [place] [address] Performed By: #### 1 4979-9, 13942-8 ####[facility] LABCLIA [id number] [place] [address] [place] STAPH AUREUS PCRon 3 S. aureus and MRSA panel DEVENDRA+probe (Nose) Normal Negative [facility] Comment on above: Order Comment: Speci men Type: SWAB OF INTERNAL NOSEOrdering Facility: [facility] Address: [address] [place] [address] Result Comment: Nega tive for Staphylococcus aureus by PCR.Negative for MRSA by PCR Performed By: #### S APCR ####[facility] LABCLIA [id number] [place] [address] [place] TYPE AND SCREEN,30 DAYon ABO O Normal [facility] Comment on above: Order Comment: Speci men Type: BLOOD SPECIMENOrdering Facility: [facility] Address: [address] [place] [address] Performed By: #### T SCR30 ####[facility] BLOOD BANKCLIA [id number] [place] [address] [place] HISTORICAL AB SCR STATUS Negative Normal [facility] Comment on above: Order Comment: Speci men Type: BLOOD SPECIMENOrdering Facility: [facility] Address: [address] [place] [address] Performed By: #### T SCR30 ####[facility] [id number] [place] [address] [place] Rh Nom (Bld) Negative Normal [facility] Comment on above: Order Comment: Speci men Type: BLOOD SPECIMENOrdering Facility: [facility] Address: [address] [place] [address] Performed By: #### T SCR30 ####[facility] BLOOD BANKIA [id number] [place] [address] [place] URINALYSIS, DIPSTICK ONLYon 10-27-2023 Bilirubin Ql (U) Negative Normal Negative [facility] Comment on above: Order Comment: Speci men Type: URINE SPECIMENOrdering Facility: [facility] Address: [address] [place] [address] Performed By: #### U A ####[facility] LABCLIA [id number] [place] [address] [place] Clarity (Unsp spec) Clear Normal Clear [facility] Comment on above: Order Comment: Speci men Type: URINE SPECIMENOrdering Facility: [facility] Address: [address] [place] [address] Performed By: #### U A ####[facility] LABCLIA [id number] [place] [address] [place] Color (U) Yellow Normal Yellow [facility] Comment on above: Order Comment: Speci men Type: URINE SPECIMENOrdering Facility: [facility] Address: [address] [place] [address] Performed By: #### U A ####[facility] LABCLIA [id number] [place] [address] [place] Glucose Test strip (U) [Mass/Vol] 3+ Abnormal Negative [facility] Comment on above: Order Comment: Speci men Type: URINE SPECIMENOrdering Facility: [facility] Address: [address] [place] [address] Performed By: #### U A ####[facility] LABCLIA [id number] [place] [address] [place] Hemoglobin Ql (U) Negative Normal Negative [facility] Comment on above: Order Comment: Speci men Type: URINE SPECIMENOrdering Facility: [facility] Address: [address] [place] [address] Performed By: #### U A ####[facility] LABCLIA [id number] [place] [address] [place] Ketones Ql (U) Negative Normal Negative [facility] Comment on above: Order Comment: Speci men Type: URINE SPECIMENOrdering Facility: [facility] Address: [address] [place] [address] Performed By: #### U A ####[facility] LABCLIA [id number] [place] [address] [place] Leukocyte esterase Test strip Ql (U) Negative Normal Negative [facility] Comment on above: Order Comment: Speci men Type: URINE SPECIMENOrdering Facility: [facility] Address: [address] [place] [address] Performed By: #### U A ####[facility] LABCLIA [id number] [place] [address] [place] Nitrite Ql (U) Negative Normal Negative [facility] Comment on above: Order Comment: Speci men Type: URINE SPECIMENOrdering Facility: [facility] Address: [address] [place] [address] Performed By: #### U A ####[facility] LABCLIA [id number] [place] [address] [place] pH (U) 6.5 [pH] Normal <8.5 [facility] Comment on above: Order Comment: Speci men Type: URINE SPECIMENOrdering Facility: [facility] Address: [address] [place] [address] Performed By: #### U A ####[facility] LABIA [id number] [place] [address] [place] Protein (U) [Mass/Vol] Negative Normal Negative [facility] Comment on above: Order Comment: Speci men Type: URINE SPECIMENOrdering Facility: [facility] Address: [address] [place] [address] Performed By: #### U A ####[facility] LABIA [id number] [place] [address] [place] Specific gravity (U) [Rel density] 1.019 Normal 1.005-1.030 [facility] Comment on above: Order Comment: Speci men Type: URINE SPECIMENOrdering Facility: [facility] Address: [address] [place] [address] Performed By: #### U A ####[facility] LABCLIA [id number] [place] [address] [place] Urobilinogen Ql (U) 1.0 EU/dL Normal 0.2-1.0 EU/dL [facility] Comment on above: Order Comment: Speci men Type: URINE SPECIMENOrdering Facility: [facility] Address: [address] [place] [address] Performed By: #### U A ####[facility] LABCLIA [id number] [place] [id number] [place] XR CHEST 2V FRONTAL/LATon XR CHEST 2V FRONTAL/LAT Normal [facility] aPTT PPPon 10-27-2023 aPTT Coag (PPP) [Time] 28.5 s Normal 23.0-32.4 [facility] Comment on above: Order Comment: Speci men Type: BLOOD SPECIMENOrdering Facility: [facility] Address: [address] [place] [address] Performed By: #### 1 4979-9, 05624-1 ####[facility] LABCLIA [id number] [place] [address] [place] CNPNon 10-05-2023 CNPN Normal [facility] Follow-Upon 09-29-2023 Follow-Up [id number] Courtney Hong 1955 M Date Provider Department Center 09/29/2023 STEPHANIE FONSECA [facility] Family History Problem Relation Age of Onset Stroke Mother Prostate cancer Father Family Status - Relation Status Age at Mother Father Level of Service:01710 [place] OFFICE/OUTPATIENT ESTABLISHED LOW MDM 20-29 MIN Reason for Visit and Comments: Follow-up [456474] - Cabgx3- Schedule surgery. [facility] Orders Onlyon 09-17-2023 Orders Only [id number] Courtney Hong 1955 M Provider Department Center 09/17/2023 OLY LO DCC INF DCC Family History Problem Relation Age of Onset Stroke Mother Prostate cancer Father Family Status - Relation Status Age at Mother Father [facility] POCT GLUCOSE METER UNSOLICIT ED RESULTSon 09-17-2023 Glucose [Mass/Vol] 137 mg/dL High 70-105 Feng moya [facility] Comment on above: Order Comment: Waive d Testing in the ED is performed under the ED CLIA certificate #[id number]. Result Comment: arei [email or web address] Performed By: #### L [id number] ####[facility] (BEAKER)[address] [place] [address] Glucose [Mass/Vol] 153 mg/dL High 70-105 [facility] Comment on above: Order Comment: Waive d Testing in the ED is performed under the ED CLIA certificate #[id number]. Result Comment: arei [email or web address] Performed By: #### L [id number] ####[facility] (BEAKER)[address] [place] [address] Glucose [Mass/Vol] 104 mg/dL Normal 70-105 [facility] Comment on above: Order Comment: Waive d Testing in the ED is performed under the ED CLIA certificate #[id number]. Result Comment: arei [email or web address] Performed By: #### L [id number] ####[facility] (BEALLISON)[address] [place] [address] Follow-Upon 08-25-2023 Follow-Up [id number] Courtney Hong 1955 M [facility] Provider Department Center 08/25/2023 [facility] Family History Problem Relation Age of Onset Stroke Mother Prostate cancer Father Family Status - Relation Status Age at Mother Father Level of Service:46967 [place] OFFICE/OUTPATIENT ESTABLISHED LOW MDM 20-29 MIN Reason for Visit and Comments: Follow-up [507751] - Cabg x3 all testing but labs completed--pick surgery date [facility] Office Visiton 07-28-2023 Follow-up visit [id number] Courtney Hong 1955 [facility] Provider Department Center 07/28/2023 STEPHANIE FONSECA CA [facility] Family History Problem Relation Age of Onset Stroke Mother Prostate cancer Father Family Status - Relation Status Age at Mother Father Level of Service:92676 [place] OFFICE/OP CONSLTJ NEW/EST PT HIGH MDM 55 MINUTES [facility] HPon 07-02-2023 HP --- Attestation signed by Yessi Burgos MD at 07/02/2023 9:11 AM H and P reviewed. No significant changes. Patient presenting with chest pain, abnormal stress. Plan to proceed with cath. Procedure was explained to patient at length and in detail. Risks, benefits, and alternatives were discussed. Patient is informed that risks of this invasive procedure include, but are not limited to, bleeding, hematoma, kidney injury, CVA, arrythmia requiring defibrillation, need for emergent open heart surgery, and . Patient understands these risks and wishes to proceed. Yessi Burgos MD H&P reviewed. The patient was examined and there are no changes to the H&P. 68 yo patient with history of HTN, HLD, DM, CAD with S/P PCI in 2005 complaining of exertional chest pain and abnormal stress test positive for slightly reversible perfusion involving the anterior, septal, and inferior lateral sainz. There was fixed, absent perfusion in the inferior wall and apex.. 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 [facility] NURSNOTReyeson 07-02-2023 WILFRID RN educated pt on d/ c instructions. RN encouraged pt to voice any questions or concerns. Pt verbalizes no questions or concerns at this time. [facility] HPon 06-12-2023 Cardiology Clinic No te Chief Complaint: new patient to establish care HPI: Roland Hong is a 68 y.o. male male with a past medical history including HTN, HLD, CAD with NE s/p PCI who is referred to Cardiology clinic for evaluation of chest pain and abnormal stress. Patient reports symptoms of chest pain with exertion over the past several months. He reports associated shortness of breath.. He denies any lower extremity edema, orthopnea, or PND. No near syncope or syncope. No additional complaint at this time. NE with PCI was in 2005. Stress test demonstrated slightly reversible perfusion involving the anterior, septal, and inferior lateral sainz. There was fixed, absent perfusion in the inferior wall and apex. Cardiology ROS: GENERAL: Denies fever, chills, night sweats, weight loss. HEENT: Denies changes in vision, photophobia, changes in hearing, epistaxis, oral bleeding. CARDIOVASCULAR: Endorses chest pain, exertional dyspnea. Denies orthopnea/PND, lower extremity edema, palpitations, lightheadedness/dizzine ss. RESPIRATORY: Denies SOB, coughing, wheezing GI: Denies abdominal pain, nausea/vomiting, heartburn, melena/hematochezia. RENAL: Denies dysuria, hematuria, flank pain. MSK: Denies muscle weakness/pain, arthralgias/joint pain. NEUROLOGIC: Denies LOC, weakness, numbness, headaches. SKIN: Denies abnormal rashes or bleeding. PSYCH: Denies significant anxiety, depression, sleep disturbances. Past Medical History He has a past medical history of CAD (coronary artery disease), Diabetes (CMS/HCC), Gout, Hyperlipidemia, and Hypertension. Surgical History He has a past surgical history that includes Hernia repair; Hemorrhoid surgery; Appendectomy; Eye surgery; Cardiac catheterization; and Coronary stent placement. Social History He reports that he has never smoked. He has never used smokeless tobacco. He reports current alcohol use. He reports that he does not use drugs. Family History Family History Problem Relation Name Age of Onset Stroke Mother Prostate cancer Father Medications Current Outpatient Medications on File Prior to Visit Medication Sig Dispense Refill allopurinol (Zyloprim) 100 mg tablet Take 100 mg by mouth in the morning. ascorbic acid (Vitamin C) 1,000 mg tablet Take 1,000 mg by mouth in the morning. aspirin 81 mg EC tablet Take 81 mg by mouth in the morning. calcium polycarbophiL (Fibercon) 625 mg tablet Take 2 tablets by mouth 1 (one) time each day. carvedilol (Coreg) 25 mg tablet Take 1 tablet by mouth every 12 (twelve) hours. cholecalciferol, vitamin D3, 50 mcg (2,000 unit) capsule Take 2,000 Units by mouth in the morning. clopidogrel (Plavix) 75 mg tablet Take 1 tablet by mouth 1 (one) time each day. empagliflozin (Jardiance) 10 mg Take 1 tablet by mouth 1 (one) time each day. ezetimibe (Zetia) 10 mg tablet Take 1 tablet by mouth 1 (one) time each day. gemfibrozil (Lopid) 600 mg tablet Take 1 tablet by mouth in the morning and at bedtime. metFORMIN (Glucophage) 1,000 mg tablet Take 1 tablet by mouth in the morning and at bedtime. olmesartan-hydrochlorot hiazide (BENIcar HCT) 40-25 mg tablet Take 1 tablet by mouth 1 (one) time each day. pioglitazone (Actos) 30 mg tablet Take 1 tablet by mouth 1 (one) time each day. semaglutide (Ozempic) 0.25 mg or 0.5 mg(2 mg/1.5 mL) pen injector Inject 0.25 mg under the skin 1 (one) time per week. No current facility-administered medications on file prior to visit. Allergies Patient has no known allergies. Physical Exam VITAL SIGNS: BP (!) 159/93 (BP Location: Left arm, Patient Position: Sitting) Pulse 61 Ht 1.727 m (5' 8 ) Wt 111 kg (245 lb) SpO2 98% BMI 37.25 kg/m??? Constitutional: Well developed, Well nourished, No acute distress, Non-toxic appearance. HENT: Normocephalic, Atraumatic, Bilateral external ears have normal appearance, Nose appears normal, nares are patent. Eyes: PERRLA, EOMI, Conjunctiva normal, No discharge. Neck: Normal range of motion, No tenderness, Supple, No stridor. No cervical lymphadenopathy noted. Cardiovascular: Normal heart rate, Normal rhythm, No murmurs, No rubs, No gallops. Thorax & Lungs: Normal breath sounds, No respiratory distress, No wheezing, No chest tenderness to palpation. Abdomen: Bowel sounds normal, Soft, Nontender, No masses, No pulsatile masses. Skin: Warm, Dry, No erythema, No rash. Back: No tenderness, No CVA tenderness. Extremities: Intact distal pulses, No edema, No tenderness, No cyanosis, No clubbing. Musculoskeletal: Grossly normal strength in extremities Neurologic: Alert & oriented x 3, no gross focal neurological deficits Psychiatric: Affect normal, Judgment normal, Mood normal. Impression: -CAD s/p PCI, symptoms concerning for angina -HTN -HLD -Abnormal stress test Plan: -Given symptoms and abnormal stress test, recommend proceeding with coronary angiography with possible revascularization -Proc (more content not included)... [facility] Office Visiton 06-12-2023 Follow-up visit [id number] Courtney Hong Kimber 1955 M Date Provider Department Center 06/12/2023 3848-YESSI BURGOS [facility] Family History Problem Relation Age of Onset Stroke Mother Prostate cancer Father Family Status - Relation Status Age at Mother Father Level of Service:79336 [place] OFFICE/OUTPATIENT NEW MODERATE MDM 45-59 MINUTES [facility] OCC BLD IMMUNO SCREENon 12-25 OCCULT BLOOD Negative Normal NEGATIVE [facility] Comment on above: Performed By: #### O BSCRN #### [facility] [address] [place] [address] Dr. Willie Martinez CBC AUTO DIFFon 01-16-2022 BASO # 0.0 103/ul Normal 0.0-0.1 [facility] Comment on above: Performed By: #### C BC #### [facility] [address] [place] [address] Dr. Willie Martinez Basophils/100 WBC (Bld) 1.0 % Normal 0.2-2.0 [facility] Comment on above: Performed By: #### C BC #### [facility] [address] [place] [address] Dr. Willie Martinez EO # 0.2 103/ul Normal 0.0-0.7 [facility] Comment on above: Performed By: #### C BC #### [facility] [address] [place] [address] Dr. Willie Martinez Eosinophils/100 WBC (Bld) 5.9 % Normal 0.9-7.0 [facility] Comment on above: Performed By: #### C BC #### [facility] [address] [place] [address] Dr. Willie Martinez Erythrocyte distribution width (RBC) [Ratio] 15.6 % Critically high 11.0-15.0 [facility] Comment on above: Performed By: #### C BC #### [facility] [address] [place] [address] Dr. Willie Martinez Hematocrit (Bld) [Volume fraction] 42.2 % Normal 42.0-54.0 [facility] Comment on above: Performed By: #### C BC #### [facility] [address] [place] [address] Dr. Willie Martinez Hemoglobin (Bld) [Mass/Vol] 13.0 g/dL Critically low 14.0-18.0 [facility] Comment on above: Performed By: #### C BC #### [facility] [address] [place] [address] Dr. Willie Martinez IG # 0.03 10e3/ul Normal 0.00-0.03 [facility] Comment on above: Performed By: #### C BC #### [facility] [address] [place] [address] Dr. Willie Martinez IG % 0.8 % Critically high 0.0-0.5 [facility] Comment on above: Performed By: #### C BC #### [facility] [address] [place] [address] Dr. Willie Martinez LYMPH # 0.8 103/ul Critically low 1.2-3.8 [facility] Comment on above: Performed By: #### C BC #### [facility] [address] [place] [address] Dr. Willie Martinez Lymphocytes/100 WBC (Bld) 21.3 % Normal 20.5-60.0 [facility] Comment on above: Performed By: #### C BC #### [facility] [address] [place] [address] Dr. Willie Martinez MANUAL DIFF REQ NO Normal [facility] Comment on above: Performed By: #### C BC #### [facility] [address] [place] [address] Dr. Willie Martinez MCH (RBC) [Entitic mass] 26.7 pg Normal 25.9-34.0 [facility] Comment on above: Performed By: #### C BC #### [facility] [address] [address] [address] Willie Martinez MCHC (RBC) [Mass/Vol] 30.8 g/dL Normal 29.9-35.2 [facility] Comment on above: Performed By: #### C BC #### [facility] [address] [address] [address] Willie Martinez MCV (RBC) [Entitic vol] 86.7 fL Normal 80.0-94.0 [facility] Comment on above: Performed By: #### C BC #### [facility] [address] [address] [address] Willie Martinez MONO # 0.4 103/ul Normal 0.3-0.8 [facility] Comment on above: Performed By: #### C BC #### [facility] [address] [place] [address] Dr. Willie Martinez Monocytes/100 WBC (Bld) 11.3 % Normal 1.7-12.0 [facility] Comment on above: Performed By: #### C BC #### [facility] [address] [place] [address] Dr. Willie Martinez NEUT # 2.3 103/ul Normal 1.4-6.5 [facility] Comment on above: Performed By: #### C BC #### [facility] [address] [place] [address] Dr. Willie Martinez Neutrophils/100 WBC (Bld) 59.7 % Normal 43.0-75.0 [facility] Comment on above: Performed By: #### C BC #### [facility] [address] [address] [address] Willie Martinez Platelet mean volume (Bld) [Entitic vol] 11.6 fL Normal 9.5-13.5 [facility] Comment on above: Performed By: #### C BC #### [facility] [address] [place] [address] Dr. Willie Martinez PLT 163 103/ul Normal 150-450 [facility] Comment on above: Performed By: #### C BC #### [facility] [address] [address] [address] Willie Martinez RBC 4.87 106/ul Normal 4.70-6.10 [facility] Comment on above: Performed By: #### C BC #### [facility] [address] [address] [address] Willie Martinez WBC 3.9 103/ul Critically low 4.0-11.0 [facility] Comment on above: Performed By: #### C BC #### [facility] [address] [address] [address] Willie Martinez FREE T3on 01-16-2022 FREE T3 2.70 pg/mlL Critically low 2.77-5.27 [facility] Comment on above: Performed By: #### C MP, T4, FT3, TSH, LIPID #### [facility] [address] [place] [address] Dr. Willie Martinez GLYCOHEMOGLOBIN A1Con 2021 ADA RECOMMENDATION ADA THERAPEUTIC TARG ET 6.0 - 7.0 ACTION SUGGESTED > 7.0 Normal [facility] Comment on above: Performed By: #### C BC #### [facility] [address] [place] [address] Dr. Wlilie Martinez Glucose [Mass/Vol] 143 mg/dL Normal [facility] Comment on above: Performed By: #### C BC #### [facility] [address] [place] [address] Dr. Willie Martinez HbA1c (Bld) [Mass fraction] 6.6 % Critically high <=6.0 [facility] Comment on above: Performed By: #### C BC #### [facility] [address] [place] [address] Dr. Wilile Martinez LIPID PROFILEon 01-16-2022 CHOL-HDL RATIO NORM SEE BELOW Normal [facility] Comment on above: Result Comment: 3.3 - 4.4 LOW RISK 4.4 - 7.1 AVERAGE RISK 7.1 - 11.0 MODERATE RISK >11.0 HIGH RISK Performed By: #### C MP, T4, FT3, TSH, LIPID #### [facility] [address] [address] [address] Willie Martinez Cholesterol [Mass/Vol] 212 mg/dL Critically high <=200 [facility] Comment on above: Performed By: #### C MP, T4, FT3, TSH, LIPID #### [facility] [address] [address] [address] Willie Martinez Cholesterol in HDL [Mass/Vol] 54 mg/dL Normal [facility] Comment on above: Performed By: #### C MP, T4, FT3, TSH, LIPID #### [facility] [address] [address] [address] Willie Martinez Cholesterol in LDL [Mass/Vol] 151.4 mg/dL Normal [facility] Comment on above: Performed By: #### C MP, T4, FT3, TSH, LIPID #### [facility] [address] [address] [address] Willie Martinez Cholesterol.total/Cho lesterol in HDL [Mass ratio] 3.9 {ratio} Normal [facility] Comment on above: Performed By: #### C MP, T4, FT3, TSH, LIPID #### [facility] [address] [address] [address] Willie Martinez HDL NORMAL > or = 60 mg/dl - LO W CARDIOVASCULAR RISK <40 mg/dl - HIGH CARDIOVASCULAR RISK Normal [facility] Comment on above: Performed By: #### C MP, T4, FT3, TSH, LIPID #### [facility] [address] [address] [address] Willie Martinez LDL CALC NORMAL SEE BELOW Normal [facility] Comment on above: Result Comment: <100 mg/dl OPTIMAL 100 - 129 mg/dl NEAR OR ABOVE OPTIMAL 130 - 159 mg/dl BORDERLINE HIGH 160 - 189 mg/dl HIGH >190 mg/dl VERY HIGH Performed By: #### C MP, T4, FT3, TSH, LIPID #### [facility] [address] [address] [address] Willie Martinez Triglyceride [Mass/Vol] 33 mg/dL Normal <=150 [facility] Comment on above: Performed By: #### C MP, T4, FT3, TSH, LIPID #### [facility] [address] [place] [address] Dr. Willie Martinez VLDL CALC 6.6 mg/dL Normal [facility] Comment on above: Performed By: #### C MP, T4, FT3, TSH, LIPID #### [facility] [address] [place] [address] Dr. Willie Martinez PROF 14(COMP METB)on 022 Albumin [Mass/Vol] 4.1 g/dL Normal 3.5-5.0 [facility] Comment on above: Performed By: #### C MP, T4, FT3, TSH, LIPID #### [facility] [address] [place] [address] Dr. Willie Martinez Albumin/Globulin [Mass ratio] 1.3 {ratio} Normal [facility] Comment on above: Performed By: #### C MP, T4, FT3, TSH, LIPID #### [facility] [address] [place] [address] Dr. Willie Martinez ALP [Catalytic activity/Vol] 88 U/L Normal 38-126 [facility] Comment on above: Performed By: #### C MP, T4, FT3, TSH, LIPID #### [facility] [address] [place] [address] Dr. Willie Martinez ALT [Catalytic activity/Vol] 29 U/L Normal 21-72 [facility] Comment on above: Performed By: #### C MP, T4, FT3, TSH, LIPID #### [facility] [address] [place] [address] Dr. Willie Martinez Anion gap [Moles/Vol] 10.4 mmol/L Normal [facility] Comment on above: Performed By: #### C MP, T4, FT3, TSH, LIPID #### [facility] [address] [place] [address] Dr. Willie Martinez AST [Catalytic activity/Vol] 15 U/L Critically low 17-59 [facility] Comment on above: Performed By: #### C MP, T4, FT3, TSH, LIPID #### [facility] [address] [place] [address] Dr. Willie Martinez Bilirubin [Mass/Vol] 0.3 mg/dL Normal 0.2-1.3 [facility] Comment on above: Performed By: #### C MP, T4, FT3, TSH, LIPID #### [facility] [address] [place] [address] Dr. Willie Martinez Calcium [Mass/Vol] 9.6 mg/dL Normal 8.4-10.2 [facility] Comment on above: Performed By: #### C MP, T4, FT3, TSH, LIPID #### [facility] [address] [place] [address] Dr. Willie Martinez Chloride [Moles/Vol] 106 mmol/L Normal 98-107 [facility] Comment on above: Performed By: #### C MP, T4, FT3, TSH, LIPID #### [facility] [address] [place] [address] Dr. Willie Martinez CO2 [Moles/Vol] 27.8 mmol/L Normal 22.0-30.0 [facility] Comment on above: Performed By: #### C MP, T4, FT3, TSH, LIPID #### [facility] [address] [place] [address] Dr. Willie Martinez Creatinine [Mass/Vol] 1.09 mg/dL Normal 0.66-1.25 [facility] Comment on above: Performed By: #### C MP, T4, FT3, TSH, LIPID #### [facility] [address] [place] [address] Dr. Willie Martinez EGFR-AF CROATIAN >60 Normal >=60 [facility] Comment on above: Performed By: #### C MP, T4, FT3, TSH, LIPID #### [facility] [address] [place] [address] Dr. Willie Martinez EGFR-NON AF CROATIAN >60 Normal >=60 [facility] Comment on above: Performed By: #### C MP, T4, FT3, TSH, LIPID #### [facility] [address] [place] [address] Dr. Willie Martinez Globulin (S) [Mass/Vol] 3.2 g/dL Normal [facility] Comment on above: Performed By: #### C MP, T4, FT3, TSH, LIPID #### [facility] [address] [place] [address] Dr. Willie Martinez Glucose [Mass/Vol] 114 mg/dL Critically high 74-106 [facility] Comment on above: Performed By: #### C MP, T4, FT3, TSH, LIPID #### [facility] [address] [place] [address] Dr. Willie Martinez Potassium [Moles/Vol] 4.2 mmol/L Normal 3.4-5.0 [facility] Comment on above: Performed By: #### C MP, T4, FT3, TSH, LIPID #### [facility] [address] [place] [address] Dr. Willie Martinez Protein [Mass/Vol] 7.3 g/dL Normal 6.1-8.2 [facility] Comment on above: Performed By: #### C MP, T4, FT3, TSH, LIPID #### [facility] [address] [place] [address] Dr. Willie Martinez Sodium [Moles/Vol] 140 mmol/L Normal 137-145 [facility] Comment on above: Performed By: #### C MP, T4, FT3, TSH, LIPID #### [facility] [address] [place] [address] Dr. Willie Martinez Urea nitrogen [Mass/Vol] 37.0 mg/dL Critically high 9.0-20.0 [facility] Comment on above: Performed By: #### C MP, T4, FT3, TSH, LIPID #### [facility] [address] [place] [address] Dr. Willie Martinez Urea nitrogen/Creatinine [Mass ratio] 33.9 mg/mg Normal [facility] Comment on above: Performed By: #### C MP, T4, FT3, TSH, LIPID #### [facility] [address] [place] [address] Dr. Willie Martinez T4on 01-16-2022 T4 [Mass/Vol] 5.80 ug/dL Normal 5.53-11.00 [facility] Comment on above: Performed By: #### C MP, T4, FT3, TSH, LIPID #### [facility] [address] [place] [address] Dr. Willie Martinez TSHon 01-16-2022 TSH 1.869 uIU/mL Normal 0.470-4.680 [facility] Comment on above: Performed By: #### C MP, T4, FT3, TSH, LIPID #### [facility] [address] [place] [address] Dr. Willie Martinez TSH RANGE SEE BELOW Normal [facility] Comment on above: Result Comment: <0.3 4 UIU/ml HYPERTHYROID 0.34-5.60 UIU/ml EUTHYROID >5.60 UIU/ml HYPOTHYROID Performed By: #### C MP, T4, FT3, TSH, LIPID #### [facility] [address] [place] [address] Dr. Willie Martinez POINT OF CARE GLUCOSEon Glucose [Mass/Vol] 118 mg/dL Critically high 74-106 [facility] Comment on above: Performed By: #### P OCGLUC #### [facility] [address] [place] [address] Nancy Santos [facility]on SARS-CoV-2 (COVID-19) RNA DEVENDRA+probe Ql (Unsp spec) Not detected Normal NOT DETECTED [facility] Comment on above: Result Comment: This test is not yet approved or cleared by the [place] FDA. When there are no FDA-approved or cleared tests available, and other criteria are met, FDA can make tests available under an emergency access mechanism called an Emergency Use Authorization (EUA). The EUA for this test is supported by the [place] of Health and Human Service's (HHS's) declaration that circumstances exist to justify the emergency use of in vitro diagnostics for the detection and/or diagnosis of the virus that causes COVID-19. This EUA will remain in effect (meaning this test can be used) for the duration of the COVID-19 declaration justifying emergency of IVDs, unless it is terminated or revoked by FDA (after which the test may no longer be used). When diagnostic testing is negative, the possibility of a false negative should be considered in the context of a patient's recent exposures and the presence of clinical signs and symptoms consistent with SARS-CoV-2. Performed By: #### C VDTB #### [facility] [address] [place] [address] Nancy Santos Vital Signs Date Time Vital Sign Value Performing Clinician Faci lity 08-23-2024 10:25040 Body height 172.7 cm Pm 1 [facility] 08-23-2024 10:25-0400 Body mass index (BMI) [Ratio] 37.4 kg/m2 [facility] 1 [facility] 08-23-2024 10:25040 Body weight 111.[address] 10-29-2023 11:28-0500 SaO2% (BldA) [Mass fraction] 98 % [facility] [place] Comment on above: Order Comment: Specimen Type: ARTERIAL B LOOD SPECIMENOrdering Facility: [facility] Address: [address] [place] [address] Performed By: #### A LLBG ####[facility] [id number] [address] [place] OF [facility] 10-29-2023 07:36-0500 SaO2% (BldA) [Mass fraction] 99 % [place] [facility] Comment on above: Order Comment: Specimen Type: ARTERIAL B LOOD SPECIMENOrdering Facility: [facility] Address: [address] [place] [address] Performed By: #### A LLBG ####[facility] [id number] [address] [place] 10-29-2023 05:21-0500 SaO2% (BldA) [Mass fraction] 98 % [place] [facility] Comment on above: Order Comment: Specimen Type: ARTERIAL B LOOD SPECIMENOrdering Facility: [facility] Address: [address] [place] [address] Performed By: #### A LLBG ####[facility] [id number] [address] [id number] [place] 10-29-2023 03:16-0500 SaO2% (BldA) [Mass fraction] 99 % [place] [facility] Comment on above: Order Comment: Specimen Type: ARTERIAL B LOOD SPECIMENOrdering Facility: [facility] Address: [address] [place] [address] Performed By: #### A LLBG ####[facility] [id number] [address] [place] 10-29-2023 00:41-0500 SaO2% (BldA) [Mass fraction] 99 % [place] [facility] Comment on above: Order Comment: Specimen Type: ARTERIAL B LOOD SPECIMENOrdering Facility: [facility] Address: [address] [place] [address] Performed By: #### A LLBG ####[facility] [id number] [place] [address] [place] 10-28-2023 23:09-0500 SaO2% (BldA) [Mass fraction] 99 % [place] [facility] Comment on above: Order Comment: Specimen Type: ARTERIAL B LOOD SPECIMENOrdering Facility: [facility] Address: [address] [place] [address] Performed By: #### A LLBG ####[facility] [id number] [address] [place] 10-28-2023 21:47-0500 SaO2% (BldA) [Mass fraction] 99 % [place] [facility] Comment on above: Order Comment: Specimen Type: ARTERIAL B LOOD SPECIMENOrdering Facility: [facility] Address: [address] [place] [address] Performed By: #### A LLBG ####[facility] [id number] [place] [place] [id number] [place] [facility] 10-28-2023 20:20-0500 SaO2% (BldA) [Mass fraction] 97 % [place] [facility] Comment on above: Order Comment: Specimen Type: ARTERIAL B LOOD SPECIMENOrdering Facility: [facility] Address: [address] [place] [address] Performed By: #### A LLBG ####[facility] [id number] [address] [place] 10-28-2023 19:36-0500 SaO2% (BldA) [Mass fraction] 100 % [place] [facility] Comment on above: Order Comment: Specimen Type: ARTERIAL B LOOD SPECIMENOrdering Facility: [facility] Address: [address] [place] [address] Performed By: #### A LLBG ####[facility] [id number] [address] [place] 10-28-2023 19:01-0500 SaO2% (BldA) [Mass fraction] 100 % [place] [facility] Comment on above: Order Comment: Specimen Type: ARTERIAL B LOOD SPECIMENOrdering Facility: [facility] Address: [address] [place] [address] Performed By: #### A LLBG ####[facility] [id number] [place] [place] [id number] [place] 10-28-2023 18:31-0500 SaO2% (BldA) [Mass fraction] 100 % [place] [facility] Comment on above: Order Comment: Specimen Type: ARTERIAL B LOOD SPECIMENOrdering Facility: [facility] Address: [address] [place] [address] Performed By: #### A LLBG ####[facility] [id number] [address] [place] [id number] [place] 10-28-2023 17:36-0500 SaO2% (BldA) [Mass fraction] 100 % [place] [facility] Comment on above: Order Comment: Specimen Type: ARTERIAL B LOOD SPECIMENOrdering Facility: [facility] Address: [address] [place] [address] Performed By: #### A LLBG ####[facility] [id number] [place] [id number] [place] 10-28-2023 16:44-0500 SaO2% (BldA) [Mass fraction] 100 % [place] [facility] Comment on above: Order Comment: Specimen Type: ARTERIAL B LOOD SPECIMENOrdering Facility: [facility] Address: [address] [place] [address] Performed By: #### A LLBG ####[facility] [id number] [place] [id number] [place] 10-28-2023 14:46-0500 SaO2% (BldA) [Mass fraction] 98 % [place] [facility] Comment on above: Order Comment: Specimen Type: ARTERIAL B LOOD SPECIMENOrdering Facility: [facility] Address: [address] [place] [address] Performed By: #### A LLBG ####[facility] [id number] [place] [id number] [place] 10-27-2023 09:26-0500 Diastolic blood pressure 80 mm[Hg] Rosalia Trinidad MD Work Phone: [facility] 10-27-2023 09:26-0500 Systolic blood pressure 118 mm[Hg] Rosalia babb MD Work Phone: [facility] 10-27-2023 09:25-0500 Body height 172.7 cm Rosalia Trinidad MD Work Phone: [facility] 10-27-2023 09:25-0500 Body weight 102.51 kg Rosalia Trinidad MD Work Phone: [facility] 10-27-2023 09:25-0500 Heart rate 86 /min Rosalia Trinidad MD Work Phone: [facility] 10-27-2023 09:25-0500 Respiratory rate 14 /min Rosalia Trinidad MD Work Phone: [facility] 10-27-2023 09:25-0500 SaO2% (BldA) [Mass fraction] 95 % Rosalia Trinidad MD Work Phone: [facility] Encounters Encounter Date Encounter Type Care Provider Facility Start: 09-01-2024 End: 09-01-2024 Telephone encounter Bridget Gtz [facility] General Surgery Start: 08-29-2024 End: 08-29-2024 Evaluation and management of inpatient SHARITA SIMS [facility] Start: 08-23-2024 End: 08-23-2024 ambulatory [facility] Pat Phone Call Provider 1 [facility] - Pre Ad[facility] Start: 08-23-2024 End: 08-23-2024 Telephone encounter Rosalia Trinidad MD Work Phone: Cardiology Comment on above: Medication Question (Can pt stop taking his 81 mg of baby aspirin before his colonoscopy on Wednesday 08/29?) Start: 08-23-2024 End: 08-23-2024 ambulatory JAMEY CRANE [facility] Start: 08-17-2024 End: 08-17-2024 ambulatory MARYSOL MORALES [facility] Start: 06-14-2024 End: 06-14-2024 ambulatory ROSALIA TRINIDAD Facility:[facility] Start: 06-14-2024 End: 06-14-2024 Patient encounter procedure Rosalia Trinidad MD Work Phone: Cardiology Comment on above: S/P CABG x 3 (Primar y Dx); Obesity (BMI 30.0-34.9); Hypertension goal BP (blood pressure) < 140/80; Controlled type 2 diabetes mellitus without complication, without long-term current use of insulin (HCC); Coronary stent restenosis, subsequent encounter Start: 06-14-2024 End: 06-14-2024 ambulatory ROSALIA TRINIDAD Facility:[facility] Start: 05-27-2024 Telephone encounter Rosalia frost MD Work Phone: Cardiology Comment on above: Appointment (resched uled) Start: 05-12-2024 Orders Only Rosalia rizvi MD Work Phone: Cardiology Comment on above: S/P CABG x 3 (Primar y Dx); Controlled type 2 diabetes mellitus without complication, without long-term current use of insulin (HCC); Primary hypertension Start: 03-21-2024 End: 03-23-2024 [facility] Start: 03-17-2024 End: 03-23-2024 [facility] Start: 03-16-2024 End: 03-23-2024 [facility] Start: 03-14-2024 End: 03-23-2024 [facility] Start: 03-09-2024 End: 03-23-2024 [facility] Start: 03-09-2024 End: 03-23-2024 [facility] Start: 03-07-2024 End: 03-07-2024 [facility] Start: 03-07-2024 End: 03-23-2024 [facility] Start: 03-03-2024 End: 03-03-2024 [facility] Start: 03-02-2024 [facility] Start: 03-02-2024 End: 03-23-2024 ambulatory [facility] [facility] Start: 02-29-2024 End: 03-23-2024 ambulatory JAMEY M Sherly [facility] Start: 02-25-2024 End: 02-25-2024 ambulatory JAMEY Quiroga Sherly [facility] Start: 02-24-2024 End: 03-23-2024 Clinical Support Pm Cardiac Rehab Exercise 4 [facility] Start: 02-24-2024 End: 03-23-2024 ambulatory JAMEY M Sherly [facility] Start: 02-22-2024 End: 02-22-2024 Clinical Support Pm Cardiac Rehab Exercise 4 [facility] Start: 02-22-2024 End: [facility] Start: 02-18-2024 End: 02-18-2024 Patient encounter procedure Pmh Cardiac Rehab Exercise 1 [facility] Start: 02-18-2024 End: 02-18-2024 ambulatory HOPE Kimber Sherly [facility] Start: 02-17-2024 End: 02-17-2024 Patient encounter procedure Pm Cardiac Rehab Exercise 1 [facility] Start: 02-17-2024 End: 02-17-2024 ambulatory JAMEY CRANE [facility] Start: 02-15-2024 End: 02-15-2024 Patient encounter procedure Pm Cardiac Rehab Exercise 1 [facility] Start: 02-15-2024 End: 02-15-2024 ambulatory JAMEY Kimber Sherly [facility] Start: 02-11-2024 End: 02-11-2024 Patient encounter procedure Pm Cardiac Rehab Exercise 1 [facility] Start: 02-11-2024 End: 02-11-2024 ambulatory JAMEY Quiroga Sherly [facility] Start: 02-10-2024 End: 02-22-2024 ambulatory JAMEYDEONDRE CRANE [facility] Start: 02-08-2024 End: 02-08-2024 Patient encounter procedure Pm Cardiac Rehab Exercise 1 [facility] Start: 02-08-2024 End: 02-08-2024 ambulatory JAMEY Quiroga Sherly [facility] Start: 02-04-2024 End: 02-04-2024 ambulatory JAMEY CRANE [facility] Start: 02-03-2024 End: 02-03-2024 ambulatory JAMEY Quiroga Sherly [facility] Start: 02-03-2024 End: 02-03-2024 Patient encounter procedure [facility] Cardiac Rehab Therapist 1 [facility] Start: 02-01-2024 End: 02-01-2024 Patient encounter procedure Pm Cardiac Rehab Therapist 1 [facility] Start: 02-01-2024 End: 02-01-2024 ambulatory JAMEY Quiroga Sherly [facility] Start: 01-28-2024 End: 01-28-2024 Patient encounter procedure Pm Cardiac Rehab Therapist 1 [facility] Start: 01-28-2024 End: 01-28-2024 ambulatory JAMEY M Sherly [facility] Start: 01-27-2024 End: 01-27-2024 Patient encounter procedure Pm Cardiac Rehab Therapist 1 [facility] Start: 01-27-2024 End: 01-27-2024 ambulatory JAMEY Quiroga Sherly [facility] Start: 01-25-2024 End: 01-25-2024 ambulatory JAMEY M Sherly [facility] Start: 01-21-2024 End: 01-21-2024 Patient encounter procedure Pm Cardiac Rehab Therapist 1 [facility] Start: 01-21-2024 End: 01-21-2024 ambulatory JAMEYDEONDRE CRANE [facility] Start: 01-20-2024 End: 01-20-2024 Patient encounter procedure [facility] Cardiac Rehab Therapist 1 [facility] Start: 01-20-2024 End: 01-20-2024 ambulatory JAMEY Quiroga [facility] Start: 01-18-2024 End: 01-18-2024 ambulatory JAMEY M [facility] Start: 01-14-2024 End: 01-14-2024 Patient encounter procedure [facility] Cardiac Rehab Therapist 1 [facility] Start: 01-14-2024 End: 01-14-2024 ambulatory JAMEY M [facility] Start: 01-13-2024 End: 01-13-2024 ambulatory JAMEY [facility] Start: 01-11-2024 End: 01-11-2024 Patient encounter procedure [facility] Cardiac Rehab Therapist 1 [facility] Start: 01-11-2024 End: 01-11-2024 ambulatory JAMEY [facility] Start: 01-07-2024 End: 01-07-2024 ambulatory [facility] Start: 01-06-2024 End: 01-06-2024 Patient encounter procedure [facility] Cardiac Rehab Therapist 1 [facility] Start: 01-06-2024 End: 01-06-2024 ambulatory JAMEY [facility] Start: 01-05-2024 ambulatory Rosalia rizvi MD Work Phone: Cardiology Comment on above: Return to Work Date Start: 01-05-2024 E-mail encounter fro m caregiver Rosalia Trinidad MD Work Phone: F [facility] Start: 01-04-2024 Documentation procedure Jossy MATHEW Work Phone: [facility] Start: 01-04-2024 End: 01-04-2024 Patient encounter procedure [facility] Cardiac Rehab Therapist 1 [facility] Start: 01-04-2024 End: 01-04-2024 ambulatory JAMEY CRANE [facility] Start: 12-31-2023 End: 12-31-2023 Patient encounter procedure [facility] Cardiac Rehab Therapist 1 [facility] Start: 12-31-2023 End: 12-31-2023 ambulatory JAMEY Quiroga Sherly [facility] Start: 12-30-2023 Telephone encounter Rosalia frost MD Work Phone: Cardiology Comment on above: RTW Date Start: 12-30-2023 End: 12-30-2023 Patient encounter procedure [facility] Cardiac Rehab Therapist 1 [facility] Start: 12-30-2023 End: 12-30-2023 ambulatory JAMEY Quiroga Sherly [facility] Start: 12-28-2023 End: 12-28-2023 Patient encounter procedure [facility] Cardiac Rehab Therapist 1 [facility] Start: 12-28-2023 End: 12-28-2023 ambulatory JAMEY CRANE [facility] Start: 12-24-2023 End: 12-24-2023 Patient encounter procedure [facility] Cardiac Rehab Therapist 1 [facility] Start: 12-24-2023 End: 12-24-2023 ambulatory JAMEYDEONDRE CRANE [facility] Start: 12-23-2023 End: 12-23-2023 Patient encounter procedure Pm Cardiac Rehab Therapist 1 [facility] Start: 12-23-2023 End: 12-23-2023 ambulatory JAMEY M Sherly [facility] Start: 12-21-2023 End: 12-21-2023 Patient encounter procedure Pm Cardiac Rehab Therapist 1 [facility] Start: 12-21-2023 End: 12-21-2023 ambulatory JAMEY CRANE [facility] Start: 12-17-2023 End: 12-17-2023 Patient encounter procedure Pm Cardiac Rehab Therapist 1 [facility] Start: 12-17-2023 End: 12-17-2023 ambulatory [facility] Start: 12-16-2023 End: 12-16-2023 Patient encounter procedure [facility] Cardiac Rehab Therapist 1 [facility] Start: 12-16-2023 End: 12-16-2023 ambulatory [facility] Start: 12-14-2023 End: 12-14-2023 Patient encounter procedure [facility] Cardiac Rehab Therapist 1 [facility] Start: 12-14-2023 End: 12-14-2023 ambulatory [facility] Start: 12-11-2023 End: 12-11-2023 ambulatory [facility] Start: 12-08-2023 End: 12-08-2023 ambulatory ROSALIA TRINIDAD Facility:[facility] Start: 12-04-2023 End: 12-04-2023 [facility] Start: 12-04-2023 End: 12-04-2023 [facility] Start: 11-10-2023 End: 11-10-2023 ambulatory ARTUROCLEMENCIA BATISTA Facility:[facility] Start: 11-03-2023 Telephone encounter Valentina Duffy [facility] A16 Comment on above: Follow Up Phone Call ( follow up call all clear. /) Start: 10-30-2023 Telephone encounter Rosalia frost MD Work Phone: Cardiology Comment on above: Patient Update Start: 10-28-2023 End: 11-02-2023 Evaluation and management of inpatient COCO BATISTA Facility:[facility] Start: 10-28-2023 End: 10-28-2023 ambulatory COCO BATISTA Facility:[facility] Start: 10-27-2023 End: 10-27-2023 ambulatory COCO BATISTA Facility:[facility] Start: 10-27-2023 End: 10-27-2023 Admission to same day surgery center Anesthesia Clearance Work Phone: [facility] Work Phone: Start: 10-27-2023 End: 10-27-2023 Patient encounter procedure Anesthesia Clearance Work Phone: Cardiothoracic Comment on above: Encounter for preope rative anesthesiology assessment for cardiac surgery (Primary Dx) Pre-op exam (Primary Dx); Preop testing Start: 10-27-2023 End: 10-27-2023 Preprocedural examination done [facility] Work Phone: [facility] Start: 10-27-2023 End: 10-27-2023 ambulatory COCO BATISTA Facility:[facility] Start: 10-27-2023 End: 10-27-2023 ambulatory JAMEY CRANE Facility:[facility] Start: 10-27-2023 End: 10-27-2023 Patient encounter status Rosalia Trinidad MD Work Phone: [facility] Start: 10-27-2023 End: 10-27-2023 Subsequent hospital visit by physician Xr Chest Main J1 Work Phone: Radiology Comment on above: 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) (Primary Dx); Primary hypertension; Controlled type 2 diabetes mellitus without complication, without long-term current use of insulin (HCC); Obesity (BMI 30.0-34.9); Coronary stent restenosis, subsequent encounter Start: 10-26-2023 End: 10-30-2023 Patient encounter status Rosalia Trinidad MD Work Phone: [facility] Start: 10-05-2023 Patient encounter status Coco Batista MD Work Phone: [facility] Start: 10-05-2023 Telephone encounter Coco Batista MD Work Phone: Cardiothoracic Comment on above: Insurance Inquiry Referral Information ; Cardiac Preop Checklist Start: 09-29-2023 ambulatory [facility] Start: 09-17-2023 End: 09-18-2023 ambulatory [facility] Start: 09-17-2023 End: 09-17-2023 ambulatory [facility] Start: 08-25-2023 ambulatory [facility] Start: 08-24-2023 End: 08-25-2023 ambulatory [facility] Start: 08-24-2023 End: 08-24-2023 Encounter for preprocedural cardiovascular examination [facility] Start: 08-24-2023 End: 08-24-2023 ambulatory [facility] Start: 07-28-2023 End: 07-29-2023 ambulatory [facility] Start: 07-28-2023 ambulatory [facility] Start: 07-02-2023 End: 07-03-2023 ambulatory [facility] Start: 07-02-2023 End: 07-02-2023 ambulatory [facility] Start: 06-12-2023 End: 06-12-2023 ambulatory [facility] Start: 01-18-2022 End: 01-18-[address] JAMEY CRANE Facility:[facility] Start: 01-17-2022 Encounter for genera l adult medical examination without abnormal findings DR JAMEY CRANE [facility] Start: 01-16-2022 End: 01-17-[address] JAMEY CRANE Facility:[facility] Start: 01-16-2022 End: 01-17-2022 Encounter for general adult medical examination without abnormal findings DR JAMEY CRANE Facility:[facility] Start: 02-27-2021 Encounter for preprocedural laboratory examination DR SHARITA SIMS [facility] Start: 02-27-2021 End: 02-27-[address] JAMEY CRANE Facility:[facility] Start: 02-22-2021 End: 02-22-[address] SHARITA SIMS Facility:[facility] Start: 02-22-2021 End: 02-22-2021 Encounter for preprocedural laboratory examination DR SHARITA SIMS Facility:[facility] Procedures Date Procedure Procedure Detail Performing Clinician Start: 08-29-2024 Colonoscopy Bridget Anthony ia ACUTE CARE CERTIFIED NURSING ASSISTANT Start: 12-31-2023 Gluc bld gluc mntr d ev cleared fda spec home use Jamey Crane MD Work Phone: Start: 12-30-2023 Gluc bld gluc mntr d ev cleared fda spec home use Jamey Crane MD Work Phone: Start: 12-28-2023 Gluc bld gluc mntr d ev cleared fda spec home use Jamey Crane MD Work Phone: Start: 12-24-2023 Gluc bld gluc mntr d ev cleared fda spec home use Jamey Crane MD Work Phone: Start: 12-23-2023 Gluc bld gluc mntr d ev cleared fda spec home use Jamey Crane MD Work Phone: Start: 12-21-2023 Gluc bld gluc mntr d ev cleared fda spec home use Jamey Crane MD Work Phone: Start: 12-17-2023 Gluc bld gluc mntr d ev cleared fda spec home use Jamey Crane MD Work Phone: Start: 12-16-2023 Gluc bld gluc mntr d ev cleared fda spec home use Jamey Crane MD Work Phone: Start: 12-14-2023 Gluc bld gluc mntr d ev cleared fda spec home use Jamey Crane MD Work Phone: Start: 12-09-2023 History of coronary artery bypass grafting S/P CABG x 3 Rosalia Trinidad MD Work Phone: Start: 12-04-2023 Echocardiography ANGELO BATISTA Start: 10-27-2023 Iadna s aureus ampli fied probe tq Coco Batista MD Work Phone: Start: 10-27-2023 Echocardiography ANGELO BATISTA Start: 10-27-2023 Antibody screen COCO BATISTA Comment on above: Order Comment: Speci men Type: BLOOD SPECIMENOrdering Facility: [facility] Address: [address] [place] [address] Performed By: #### T [id number] ####CC [facility] [id number] [address] Start: 01-16-[address] BENJAMIN CRANE Comment on above: Performed By: #### P [facility] #### [facility] [address] [place] [address] Dr. 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 3 Rosalia Trinidad MD Work Phone: Plan of Treatment Date Care Activity Detail Author Start: 08-29-2029 Screening for malignant neoplasm of colon Colonoscopy [facility] panpan [facility] Start: 01-16-2027 Prostate Cancer Screening Discussion Prostate Cancer Screening Discussion [facility] Start: 01-16-2027 Prostate specific antigen measurement Prostate Cancer Screening Discussion [facility] Start: 08-30-2025 Pneumococcal Vaccine: 65+ (3 - PPSV23 or PCV20) Pneumococcal Vaccine: 65+ (3 - PPSV23 or PCV20) [facility] Start: 08-30-2025 Pneumococcal Vaccine: 65+ (3 of 3 - PPSV23 or PCV20) Pneumococcal Vaccine: 65+ (3 of 3 - PPSV23 or PCV20) [facility] Start: 08-29-2025 Adult BMI Screening Adult BMI Screening [facility] Start: 08-29-2025 Tobacco Screening Tobacco Screening [facility] Start: 08-23-2025 Adult BMI Screening Adult BMI Screening [facility] Start: 08-23-2025 Tobacco Screening Tobacco Screening [facility] Start: 06-14-2025 Hepatitis B surface antibody level LDL Cholesterol [facility] Start: 12-15-2024 Hemoglobin A1c measurement HbA1C [facility] Start: 12-08-2024 BP Controlled (<130/80) BP Controlled (<130/80) [facility] Start: 10-31-2024 Hepatitis B surface antibody level LDL Cholesterol [facility] Start: 08-29-2024 End: 08-29-2024 Admission to same day surgery center 08/29/2024 10:15 AM EDT - 08/29/2024 11:00 AM EDT Surgery [facility] Surgery [address] [place] [address] Sharita Sims, DO [address] [place], [place] [id number] ESOPHAGOGASTRODUODENOSCOPY DIAGNOSTIC [18000 (CPT )] [facility] Comment on above: ESOPHAGOGASTRODUODENOSCOPY DIAGNOSTIC [4 3235 (CPT )] Start: 08-29-2024 End: 08-29-2024 Anesthesia consultation 08/29/2024 10:15 AM EDT Anesthesia Event [facility] Surgery [address] [place] [address] Lior Shine, DO [address] [place] [address] [facility] Start: 08-29-2024 End: 08-29-2024 Colonoscopy flx dx w/collj spec when pfrmd COLONOSCOPY DIAGNOSTIC / SCREENING anemia 08/29/2024 10:15 AM EDT [facility] Start: 08-29-2024 End: 08-29-2024 Esophagogastroduodenoscopy transoral diagnostic ESOPHAGOGASTRODUODENOSCOPY DIAGNOSTIC anemia 08/29/2024 10:15 AM EDT [facility] Start: 08-29-2024 Subsequent hospital visit by physician 08/29/2024 10:15 AM EDT Hospital Encounter [facility] Surgery [address] [place] [address] Sharita Sims DO [address] [place] [address] [facility] Start: 07-24-2024 Covid-19 Vaccine ( season) Covid-19 Vaccine ( season) [facility] Start: 07-24-2024 Influenza vaccination [facility] Start: 06-01-2024 End: 06-01-2024 Patient encounter procedure 06/01/2024 10:30 AM EDT Of fice Visit Cardiology [address] [place] [address] Rosalia Trinidad MD [address] [place], [place] [id number] Clinician, Interventional [address] [place], [place] [id number] DX: Controlled type 2 diabetes mellitus without complication, without long-term current use of insulin Cardiology Comment on above: DX: Controlled type 2 diabetes mellitus without complication, without long-term current use of insulin Start: 05-12-2024 End: 08-11-2024 Comprehensive metabolic 2000 panel - Serum or Plasma COMPREHENSIVE METABOLIC PANEL Lab Routine S/P CABG x 3 Controlled type 2 diabetes mellitus without complication, without long-term current use of insulin (HCC) Primary hypertension Expected: 05/12/2024, Expires: 08/11/2024 [facility] Comment on above: Expected: 05/12/2024, Expires: Start: 05-12-2024 End: 08-11-2024 Hemoglobin A1c in Blood HEMOGLOBIN A1C Lab Routine S /P CABG x 3 Controlled type 2 diabetes mellitus without complication, without long-term current use of insulin (HCC) Primary hypertension Expected: 05/12/2024, Expires: 08/11/2024 [facility] Comment on above: Expected: 05/12/2024, Expires: Start: 05-12-2024 End: 08-11-2024 Lipid 1996 panel - Serum or Plasma LIPID PANEL BASIC Lab Routine S/P CABG x 3 Controlled type 2 diabetes mellitus without complication, without long-term current use of insulin (HCC) Primary hypertension Expected: 05/12/2024, Expires: 08/11/2024 [facility] Comment on above: Expected: 05/12/2024, Expires: Start: 04-27-2024 Hemoglobin A1c measurement HbA1C [facility] Start: 04-27-2024 Hemoglobin A1c/Hemoglobin.total in Blood HbA1C [facility] Start: 03-14-2024 End: 03-14-2024 Patient encounter procedure 03/14/2024 1:00 PM EDT Off [place] Visit [facility] [address] [place] [address] [facility] Start: 03-10-2024 End: 03-10-2024 Patient encounter procedure 03/10/2024 1:00 PM EDT Off [place] Visit [facility] [address] [place] [address] [facility] Start: 03-09-2024 End: 03-09-2024 Patient encounter procedure 03/09/2024 1:00 PM EDT Off ice Visit [facility] [address] [place] [address] [facility] Start: 03-07-2024 End: 03-07-2024 Patient encounter procedure 03/07/2024 1:00 PM EDT Off ice Visit [facility] [address] [place] [address] [facility] Start: 03-03-2024 End: 03-03-2024 Patient encounter procedure [facility] Start: 03-02-2024 End: 03-02-2024 Patient encounter procedure [facility] Start: 02-29-2024 End: 02-29-2024 Patient encounter procedure [facility] Start: 02-25-2024 End: 02-25-2024 Patient encounter procedure [facility] Start: 02-24-2024 End: 02-24-2024 Patient encounter procedure [facility] Start: 02-22-2024 End: 02-22-2024 Patient encounter procedure [facility] Start: 02-18-2024 End: 02-18-2024 Patient encounter procedure 02/18/2024 1:00 PM EDT Off ice Visit [facility] [address] [place] [address] [facility] Start: 02-17-2024 End: 02-17-2024 Patient encounter procedure 02/17/2024 1:00 PM EDT Off ice Visit [facility] [address] [place] [address] [facility] Start: 02-15-2024 End: 02-15-2024 Patient encounter procedure 02/15/2024 1:00 PM EDT Off ice Visit [facility] [address] [place] [address] [facility] Start: 02-11-2024 End: 02-11-2024 Patient encounter procedure 02/11/2024 1:00 PM EDT Off ice Visit [facility] [address] [place] [address] [facility] Start: 02-10-2024 End: 02-10-2024 Patient encounter procedure 02/10/2024 1:00 PM EDT Off [place] Visit [facility] [address] [place] [address] [facility] Start: 02-08-2024 End: 02-08-2024 Patient encounter procedure 02/08/2024 1:00 PM EDT Off ice Visit [facility] [address] [place] [address] [facility] Start: 02-04-2024 End: 02-04-2024 Patient encounter procedure 02/04/2024 1:00 PM EDT Off ice Visit [facility] [address] [place] [address] [facility] Start: 02-03-2024 End: 02-03-2024 Patient encounter procedure 02/03/2024 1:00 PM EDT Off ice Visit [facility] [address] [place] [address] [facility] Start: 02-01-2024 End: 02-01-2024 Patient encounter procedure 02/01/2024 1:00 PM EDT Off ice Visit [facility] [address] [place] [address] [facility] Start: 01-28-2024 End: 01-28-2024 Patient encounter procedure 01/28/2024 1:00 PM EST Off ice Visit [facility] [address] [place] [address] [facility] Start: 01-27-2024 End: 01-27-2024 Patient encounter procedure 01/27/2024 1:00 PM EST Off ice Visit [facility] [address] [place] [address] [facility] Start: 01-25-2024 End: 01-25-2024 Patient encounter procedure 01/25/2024 1:00 PM EST Off ice Visit [facility] [address] [place] [address] [facility] Start: 01-21-2024 End: 01-21-2024 Patient encounter procedure 01/21/2024 1:00 PM EST Off ice Visit [facility] [address] [place] [address] [facility] Start: 01-20-2024 End: 01-20-2024 Patient encounter procedure 01/20/2024 1:00 PM EST Off ice Visit [facility] [address] [place] [address] [facility] Start: 01-18-2024 End: 01-18-2024 Patient encounter procedure 01/18/2024 1:00 PM EST Off ice Visit [facility] [address] [place] [address] [facility] Start: 01-14-2024 End: 01-14-2024 Patient encounter procedure 01/14/2024 1:00 PM EST Off ice Visit [facility] [address] [place] [address] [facility] Start: 01-13-2024 End: 01-13-2024 Patient encounter procedure 01/13/2024 1:00 PM EST Off ice Visit [facility] [address] [place] [address] [facility] Start: 01-11-2024 End: 01-11-2024 Patient encounter procedure 01/11/2024 1:00 PM EST Off ice Visit [facility] [address] [place] [address] [facility] Start: 01-07-2024 End: 01-07-2024 Patient encounter procedure 01/07/2024 1:00 PM EST Off ice Visit [facility] [address] [place] [address] [facility] Start: 01-06-2024 End: 01-06-2024 Patient encounter procedure 01/06/2024 1:00 PM EST Off ice Visit [facility] [address] [place] [address] [facility] Start: 01-04-2024 End: 01-04-2024 Patient encounter procedure 01/04/2024 1:00 PM EST Off ice Visit [facility] [address] [place] [address] [facility] Start: 12-31-2023 End: 12-31-2023 Patient encounter procedure 12/31/2023 1:00 PM EST Off ice Visit [facility] [address] [place] [address] [facility] Start: 12-30-2023 End: 12-30-2023 Patient encounter procedure 12/30/2023 1:00 PM EST Off ice Visit [facility] [address] [place] [address] [facility] Start: 12-28-2023 End: 12-28-2023 Patient encounter procedure 12/28/2023 1:00 PM EST Off ice Visit [facility] [address] [place] [address] [facility] Start: 12-24-2023 End: 12-24-2023 Patient encounter procedure 12/24/2023 1:00 PM EST Off ice Visit [facility] [address] [place] [address] [facility] Start: 12-23-2023 End: 12-23-2023 Patient encounter procedure 12/23/2023 1:00 PM EST Off ice Visit [facility] [address] [place] [address] [facility] Start: 12-21-2023 End: 12-21-2023 Patient encounter procedure 12/21/2023 1:00 PM EST Off ice Visit [facility] [address] [place] [address] [facility] Start: 12-17-2023 End: 12-17-2023 Patient encounter procedure 12/17/2023 1:00 PM EST Off ice Visit [facility] [address] [place] [address] [facility] Start: 12-16-2023 End: 12-16-2023 Patient encounter procedure 12/16/2023 1:00 PM EST Off ice Visit [facility] [address] [place] [address] [facility] Start: 11-23-2023 [facility] Direct[facility] Start: 11-23-2023 Behavioral Health Screening Behavioral Health Screening [facility] Start: 11-23-2023 Depression Assessment Depression Assessment [facility] Start: 10-08-2023 End: 01-07-2024 aPTT in Platelet poor plasma by Coagulation assay ACTIVATED PTT Lab Routine Coronary artery disease of [place] artery of [place] heart with stable angina pectoris (HCC) Pre-operative cardiovascular examination 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) Expected: 10/08/2023 (Approximate), Expires: 01/07/2024 [facility] Work Phone: Comment on above: Expected: 10/08/2023 (Approximate), Expi res: 01/07/2024 Start: 10-08-2023 End: 01-07-2024 CBC W Auto Differential panel - Blood CBC + DIFF Lab Routine Coronary artery disease of [place] artery of [place] heart with stable angina pectoris (HCC) Pre-operative cardiovascular examination 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) Expected: 10/08/2023, Expires: 01/07/2024 [facility] Work Phone: Comment on above: Expected: 10/08/2023, Expires: Start: 10-08-2023 End: 01-07-2024 Comprehensive metabolic 2000 panel - Serum or Plasma COMP METABOLIC PANEL Lab Routine Coronary artery disease of [place] artery of [place] heart with stable angina pectoris (HCC) Pre-operative cardiovascular examination 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) Expected: 10/08/2023, Expires: 01/07/2024 [facility] Work Phone: Comment on above: Expected: 10/08/2023, Expires: Start: 10-08-2023 End: 01-07-2024 CONFIRM BLOOD TYPE CONFIRM BLOOD TYPE Blood Ban k Routine Coronary artery disease of [place] artery of [place] heart with stable angina pectoris (HCC) Pre-operative cardiovascular examination 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) Expected: 10/08/2023, Expires: 01/07/2024 [facility] Work Phone: Comment on above: Expected: 10/08/2023, Expires: Start: 10-08-2023 End: 01-07-2024 Hemoglobin A1c in Blood HGB A1C Lab Routine Coronary artery disease of [place] artery of [place] heart with stable angina pectoris (HCC) Pre-operative cardiovascular examination 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) Expected: 10/08/2023 (Approximate), Expires: 01/07/2024 [facility] Work Phone: Comment on above: Expected: 10/08/2023 (Approximate), Expi res: 01/07/2024 Start: 10-08-2023 End: 01-07-2024 Lactate dehydrogenase [Enzymatic activity/volume] in Serum or Plasma LD LACTATE DEHYDRO Lab Routine Coronary artery disease of [place] artery of [place] heart with stable angina pectoris (HCC) Pre-operative cardiovascular examination 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) Expected: 10/08/2023, Expires: 01/07/2024 [facility] Work Phone: Comment on above: Expected: 10/08/2023, Expires: Start: 10-08-2023 End: 01-07-2024 PT panel - Platelet poor plasma by Coagulation assay PROTHROMBIN TIME/PT Lab Routine Coronary artery disease of [place] artery of [place] heart with stable angina pectoris (HCC) Pre-operative cardiovascular examination 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) Expected: 10/08/2023 (Approximate), Expires: 01/07/2024 [facility] Work Phone: Comment on above: Expected: 10/08/2023 (Approximate), Expi res: 01/07/2024 Start: 10-08-2023 End: 01-07-2024 TYPE AND SCREEN,30 DAY TYPE AND SCREEN,30 DAY Blood Bank Routine Coronary artery disease of [place] artery of [place] heart with stable angina pectoris (HCC) Pre-operative cardiovascular examination 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) Expected: 10/08/2023, Expires: 01/07/2024 [facility] Work Phone: Comment on above: Expected: 10/08/2023, Expires: 4 Start: 10-08-2023 End: 01-07-2024 URINALYSIS, DIPSTICK ONLY URINALYSIS, DIPSTICK ONLY La b Routine Coronary artery disease of [place] artery of [place] heart with stable angina pectoris (HCC) Pre-operative cardiovascular examination 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) Expected: 10/08/2023, Expires: 01/07/2024 [facility] Work Phone: Comment on above: Expected: 10/08/2023, Expires: Start: 07-24-2023 Covid-19 Vaccine (2022- season) Covid-19 Vaccine ( season) [facility] Start: 07-24-2023 Influenza vaccination [facility] Start: 05-01-2023 Adult BMI Screening Adult BMI Screening [facility] Start: 05-01-2023 Tobacco Screening Tobacco Screening [facility] Start: 11-23-2022 Advance Directive Discussion Advance Directive Discussion [facility] Start: 11-23-2022 Depression Assessment Depression Assessment [facility] Start: 2022 Fall Risk Screening Fall Risk Screening [facility] Start: 2017 RSV Vaccine (1 - 1-dose 60+ series) RSV Vaccine (1 - 1-dose 60+ series) [facility] Start: 2017 RSV Vaccine (1 - Risk 60-74 years 1-dose series) RSV Vaccine (1 - Risk 60-74 years 1-dose series) [facility] Start: 2007 Administration of varicella zoster vaccine Zoster (Shingles) Vaccine (1 of 2) [facility] Start: 2007 Shingrix Vaccine (1 of 2) Shingrix Vaccine (1 of 2) [facility] Start: 2002 Cologuard (FIT-DNA) Cologuard (FIT-DNA) [facility] Start: 2002 Colonoscopy Colonoscopy [facility] Start: 2002 Colorectal Cancer Screening Colorectal Cancer Screening [facility] Start: [address] Colonography [facility] Start: 2002 Fecal Occult Blood Fecal Occult Blood [facility] Start: 2002 Screening for malignant neoplasm of colon [facility] Start: 2002 Sigmoidoscopy Sigmoidoscopy [facility] Start: 1976 DTaP,Tdap and Td Vaccines (1 - Tdap) DTaP,Tdap and Td Vaccines (1 - Tdap) [facility] Start: 1976 Urine microalbumin profile DTaP,Tdap,Td Vaccine (1 - Tdap) [facility] Start: 1975 Adult BMI Follow Up Plan Adult BMI Follow Up Plan [facility] Start: 1975 Annual PCP Team Chronic Disease Visit Annual PCP Team Chronic Disease Visit [facility] Start: 1975 Anxiety Screening Anxiety Screening [facility] Start: 1975 BP Controlled (<130/80) BP Controlled (<130/80) [facility] Start: 1975 Depression Screening Depression Screening [facility] Start: 1975 Hepatitis B surface antibody level LDL Cholesterol [facility] Start: 1975 Hepatitis C Screening Hepatitis C Screening [facility] Start: 1975 Hepatitis C screening Hepatitis C Screening [facility] Start: 1969 Depression Screening Depression Screening [facility] Start: 1967 3 comp foot exam completed Diabetic Foot Exam [facility] Start: 1967 Diabetic foot examination Diabetic Foot Exam [facility] Start: 1967 Glaucoma screening Dilated Retinal Exam [facility] Start: 1967 Hepatitis B screening Urine Albumin:Creatinine Ratio [facility] Start: 1967 Hepatitis C antibody, confirmatory test Dilated Retinal Exam [facility] Start: 1957 Covid-19 Vaccine (#1) Covid-19 Vaccine (#1) [facility] Start: 1957 Medicare Annual Wellness Visit Medicare Annual Wellness Visi t [facility] CARDIOPULMONARY REHABILITATION C ARDIOPULMONARY REHABILITATION Cardiac Services Ordered: 12/14/2023 [facility] Comment on above: Ordered: 12/14/2023 CARDIOPULMONARY REHABILITATION C ARDIOPULMONARY REHABILITATION Cardiac Services Ordered: 12/16/2023 [facility] Comment on above: Ordered: 12/16/2023 CARDIOPULMONARY REHABILITATION C ARDIOPULMONARY REHABILITATION Cardiac Services Ordered: 12/17/2023 [facility] Comment on above: Ordered: 12/17/2023 CARDIOPULMONARY REHABILITATION C ARDIOPULMONARY REHABILITATION Cardiac Services Ordered: 12/23/2023 [facility] Comment on above: Ordered: 12/23/2023 CARDIOPULMONARY REHABILITATION C ARDIOPULMONARY REHABILITATION Cardiac Services Ordered: 12/30/2023 [facility] Comment on above: Ordered: 12/30/2023 CARDIOPULMONARY REHABILITATION C ARDIOPULMONARY REHABILITATION Cardiac Services Ordered: 12/31/2023 [facility] Comment on above: Ordered: 12/31/2023 CARDIOPULMONARY REHABILITATION C ARDIOPULMONARY REHABILITATION Cardiac Services Ordered: 01/04/2024 [facility] Comment on above: Ordered: 01/04/2024 CARDIOPULMONARY REHABILITATION C ARDIOPULMONARY REHABILITATION Cardiac Services Ordered: 01/06/2024 [facility] Comment on above: Ordered: 01/06/2024 CARDIOPULMONARY REHABILITATION C ARDIOPULMONARY REHABILITATION Cardiac Services Ordered: 01/11/2024 [facility] Comment on above: Ordered: 01/11/2024 CARDIOPULMONARY REHABILITATION C ARDIOPULMONARY REHABILITATION Cardiac Services Ordered: 01/14/2024 [facility] Comment on above: Ordered: 01/14/2024 CARDIOPULMONARY REHABILITATION C ARDIOPULMONARY REHABILITATION Cardiac Services Ordered: 01/20/2024 [facility] Comment on above: Ordered: 01/20/2024 CARDIOPULMONARY REHABILITATION C ARDIOPULMONARY REHABILITATION Cardiac Services Ordered: 01/25/2024 [facility] Comment on above: Ordered: 01/25/2024 CARDIOPULMONARY REHABILITATION C ARDIOPULMONARY REHABILITATION Cardiac Services Ordered: 01/27/2024 [facility] Comment on above: Ordered: 01/27/2024 CARDIOPULMONARY REHABILITATION C ARDIOPULMONARY REHABILITATION Cardiac Services Ordered: 01/28/2024 [facility] Comment on above: Ordered: 01/28/2024 CARDIOPULMONARY REHABILITATION C ARDIOPULMONARY REHABILITATION Cardiac Services Ordered: 02/01/2024 [facility] Comment on above: Ordered: 02/01/2024 CARDIOPULMONARY REHABILITATION C ARDIOPULMONARY REHABILITATION Cardiac Services Ordered: 02/03/2024 [facility] Comment on above: Ordered: 02/03/2024 CARDIOPULMONARY REHABILITATION C ARDIOPULMONARY REHABILITATION Cardiac Services Ordered: 02/08/2024 [facility] Comment on above: Ordered: 02/08/2024 CARDIOPULMONARY REHABILITATION C ARDIOPULMONARY REHABILITATION Cardiac Services Ordered: 02/11/2024 [facility] Comment on above: Ordered: 02/11/2024 CARDIOPULMONARY REHABILITATION C ARDIOPULMONARY REHABILITATION Cardiac Services Ordered: 02/15/2024 [facility] Comment on above: Ordered: 02/15/2024 CARDIOPULMONARY REHABILITATION C ARDIOPULMONARY REHABILITATION Cardiac Services Ordered: 02/17/2024 [facility] Comment on above: Ordered: 02/17/2024 CARDIOPULMONARY REHABILITATION C ARDIOPULMONARY REHABILITATION Cardiac Services Ordered: 02/18/2024 [facility] Comment on above: Ordered: 02/18/2024 CARDIOPULMONARY REHABILITATION C ARDIOPULMONARY REHABILITATION Cardiac Services Ordered: 02/22/2024 [facility] Comment on above: Ordered: 02/22/2024 CARDIOPULMONARY REHABILITATION C ARDIOPULMONARY REHABILITATION Cardiac Services Ordered: 02/24/2024 [facility] Comment on above: Ordered: 02/24/2024 End: 10-08-2024 ECG COMPLETE ECG COMPLETE ECG Routine Coronary artery disease of [place] artery of [place] heart with stable angina pectoris (HCC) Pre-operative cardiovascular examination 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) 1 Occurrences starting 10/08/2023 until 10/08/2024 [facility] Work Phone: Comment on above: 1 Occurrences starting 10/08/2023 until 10/08/2024 End: 11-06-2024 Radiologic exam chest 2 views XR CHEST 2V FRONTAL/LAT Radiology Routine Coronary artery disease of [place] artery of [place] heart with stable angina pectoris (HCC) Pre-operative cardiovascular examination 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) 1 Occurrences starting 10/08/2023 until 11/06/2024 [facility] Work Phone: Comment on above: 1 Occurrences starting 10/08/2023 until 11/06/2024 Radiologic exam chest 2 views XR CHEST 2V FRONTAL/LAT Radiology Routine Coronary artery disease of [place] artery of [place] heart with stable angina pectoris (HCC) Pre-operative cardiovascular examination 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 2022 Medicare [id number] 2013 Unknown [id number] 1959 Unknown [id number] 1957 Unknown [id number] 2.16.84 0.1.651597.3.579.2.593 1957 Unknown [id number] 2.16.84 0.1.011611.3.579.2.593 1957 Unknown [id number] 2.16.84 0.1.234260.3.579.2.593 1957 Unknown [id number] 2.16.84 0.1.333023.3.579.2.593 1957 Unknown [id number] 2.16.8 40.1.135402.3.579.2.1286 1957 Unknown [id number] 2.16.8 40.1.027729.3.579.2.128 1957 Unknown [id number] 2.16.8 40.1.427683.3.579.2.1285 1957 Unknown [id number] 2.16.8 40.1.945021.3.579.2.1285 1957 Unknown [id number] 2.16.8 40.1.822004.3.579.2.1285 1957 Unknown [id number] 2.16.8 40.1.078398.3.579.2.1285 1957 Unknown [id number] 2.16.8 40.1.229380.3.579.2.1285 1957 Unknown [id number] 2.16.8 40.1.721407.3.579.2.128 1957 Unknown [id number] 2.16.8 40.1.343857.3.579.2.1285 1957 Unknown [id number] 2.16.8 40.1.580881.3.579.2.1285 1957 Unknown [id number] 2.16.8 40.1.440647.3.579.2.1285 1957 Unknown [id number] 2.16.8 40.1.725156.3.579.2.1285 1957 Unknown [id number] 2.16.8 40.1.236613.3.579.2.128 1957 Unknown [id number] 2.16.8 40.1.786544.3.579.2.1286 1957 Unknown [id number] 2.16.8 40.1.116332.3.579.2.1285 1957 Unknown [id number] 2.16.8 40.1.929191.3.579.2.128 1957 Unknown [id number] 2.16.8 40.1.807835.3.579.2.1285 1957 Unknown [id number] 2.16.8 40.1.322217.3.579.2.128 1957 Unknown [id number] 2.16.8 40.1.715305.3.579.2.1285 1957 Unknown [id number] 2.16.8 40.1.589436.3.579.2.1285 1957 Unknown [id number] 2.16.8 40.1.040444.3.579.2.1285 1957 Unknown [id number] 2.16.8 40.1.954890.3.579.2.1285 1957 Unknown [id number] 2.16.8 40.1.615605.3.579.2.1285 1957 Unknown [id number] 2.16.8 40.1.411393.3.579.2.1285 1957 Unknown [id number] 2.16.8 40.1.234118.3.579.2.1285 1957 Unknown [id number] 2.16.8 40.1.607422.3.579.2.1285 1957 Unknown [id number] 2.16.8 40.1.688953.3.579.2.1285 1957 Unknown [id number] 2.16.8 40.1.596455.3.579.2.1285 1957 Unknown [id number] 2.16.8 40.1.208529.3.579.2.128 1957 Unknown [id number] 2.16.8 40.1.910976.3.579.2.1285 1957 Unknown [id number] 2.16.8 40.1.150753.3.579.2.1285 1957 Unknown [id number] 2.16.8 40.1.948902.3.579.2.1285 1957 Unknown [id number] 2.16.8 40.1.044485.3.579.2.1285 1957 Unknown [id number] 2.16.8 40.1.062775.3.579.2.1285 1957 Unknown [id number] 2.16.8 40.1.404511.3.579.2.1285 1957 Unknown [id number] 2.16.8 40.1.400257.3.579.2.1285 1957 Unknown [id number] 2.16.8 40.1.525201.3.579.2.1285 1957 Unknown [id number] 2.16.8 40.1.070074.3.579.2.1285 1957 Unknown [id number] 2.16.8 40.1.562382.3.579.2.1285 1957 Unknown [id number] 2.16.8 40.1.838076.3.579.2.1285 1957 Unknown [id number] 2.16.8 40.1.678173.3.579.2.1285 1957 Unknown [id number] 2.16.8 40.1.293068.3.579.2.1285 1957 Unknown [id number] 2.16.8 40.1.849947.3.579.2.1285 1957 Unknown [id number] 2.16.8 40.1.120389.3.579.2.1285 1957 Unknown [id number] 2.16.8 40.1.025309.3.579.2.128 1957 Unknown [id number] 2.16.8 40.1.574444.3.579.2.128 1957 Unknown [id number] 2.16.8 40.1.966861.3.579.2.1285 1957 Unknown [id number] 2.16.8 40.1.466272.3.579.2.128 1957 Unknown [id number] 2.16.8 40.1.169934.3.579.2.1285 1957 Unknown [id number] 2.16.8 40.1.234813.3.579.2.1285 1957 Unknown [id number] 2.16.8 40.1.697324.3.579.2.1285 1957 Unknown [id number] 2.16.8 40.1.008014.3.579.2.1286 1957 Unknown [id number] 2.16.8 40.1.125437.3.579.2.1285 1957 Unknown [id number] 2.16.8 40.1.710731.3.579.2.1285 1957 Unknown [id number] 2.16.8 40.1.074257.3.579.2.1285 1957 Unknown [id number] 2.16.84 0.1.505666.3.579.2.128 1957 Unknown [id number] 2.16.84 0.1.890424.3.579.2.1286 Social History Date Type Detail Facility Start: 10-06-2023 Tobacco smoking status [facility] Tobacco smoking consumption unknown [facility] Start: 1955 Sex Assigned At Not on file [facility] Start: 12-31-2020 End: 10-27-2023 Gender identity Not on file [facility] Start: 04-13-2018 End: 10-27-2023 Tobacco smoking status NHIS Never smoked tobacco [facility] Start: 04-13-2018 End: 10-27-2023 Tobacco use and exposure Smokeless tobacco non-user [facility] Start: 10-27-2023 End: 06-14-2024 Alcohol intake Lifetime non-drinker (finding) [facility] Start: 12-31-2020 End: 10-27-2023 History of Social function [facility] National Score (1-100), lower number is lower risk 53 [facility] (I/We) worried whether (my/our) food would run out before (I/we) got money to buy more. Never true [facility] In the past 12 months, was there a time when you were not able to pay the mortgage or rent on time? No [facility] Start: 05-01-2022 End: 08-30-2024 Alcohol intake Current non-drinker of alcohol (finding) [employer] [employer] [facility] Procedure Code Equipment Code Equipment Origin al Text Equipment Identifier Dates Lens Iol Ultrase rt 18.5d - [id number] - [id number] Start: 05-01-2022 Goals Date Patient Goal Desired Activity /State Personal health goal Clinical Notes 06-12-2023 to 09-01-2024 Telephone Encounter - Bridget Gtz CMA - 09/01/2024 11:51 AM EDTTelephone Encounter - Bridget Gtz CMA - 09/01/2024 11:51 AM EDTTelephone Encounter - Bridget Gtz [facility] - 09/01/2024 11:51 AM EDT Note Date & Type Note Facility 09-01-2024 Miscellaneous Notes ----- Message from Dr. Sharita Sims DO sent at 09/01/2024 11:04 AM EDT ----- Please let patient know that he had mild gastritis and he had a rectal polyp and I recommend repeat colonoscopy in 5 years. I recommend staying away from aspirin and nonsteroidal anti-inflammatory drugs and he should take omeprazole [id number] for 6 weeks only. Thanks, Dr. Nolan Spoke with patient regarding pathology results. Patient verbally understood with no further questions. Recall to be put in chart. [facility]-01-[facility]24 Telephone encounter Note ----- Message from Dr. Sharita Sims DO sent at 09/01/2024 11:04 AM EDT ----- Please let patient know that he had mild gastritis and he had a rectal polyp and I recommend repeat colonoscopy in 5 years. I recommend staying away from aspirin and nonsteroidal anti-inflammatory drugs and he should take omeprazole [id number] for 6 weeks only. Thanks, Dr. [facility]24 Telephone encounter Note Spoke with patient regarding pathology results. Patient verbally understood with no further questions. Recall to be put in chart. [facility] 08-23-2024 Miscellaneous Notes Preoperative Education Checklist- General Surgery date: 08/29/24 Surgery time: 1015 Arrival time: 0815 1. Bring a photo ID and your insurance card with you the day of surgery. You will check in at the main lobby of the [facility]- registration desk is straight ahead as soon as you walk in. Tell them you are here for surgery. 2. If you have a Living Will/Durable Power of [employer] Specialist for Health Care that is not on file here, please bring a copy the day of surgery. 3. Please shower/bathe the night before surgery with the provided soap or wipes. Do not shower the morning of surgery- you will do use wipes when you arrive here at the hospital before getting into your surgical gown. Do not shave the area of your procedure for 2 days prior to your surgery. 4. NO powder, lotion, perfume/cologne, aftershave, make-up, deodorant, or hair products after you have bathed. 5. NO nail south african/acrylic on at least one finger. If you are having a hand, wrist or foot surgery then all nail south african and artificial/acrylic nails must be removed from that hand or foot. 6. Avoid ALL Aspirin and non-steroidal anti-inflammatory drugs and certain vitamins (Ibuprofen, Advil, Aleve, Excedrin, Meloxicam, Celebrex, fish/krill oil, etc.) for 7 days prior to surgery as instructed by your surgeon and/or your prescribing doctor. Tylenol IS ALLOWED. If you are on Ticlid, Xarelto, Eliquis, Pradaxa, Plavix or Coumadin, please check with your prescribing doctor for instructions for when to stop them. 7. If you use an inhaler, continue to use it routinely. 8. Nothing to eat or drink (not even water, gum, mints, or hard candy!) AFTER midnight prior to your surgery. 9. Take only medications that you are instructed to on the morning of surgery with a TINY SIP OF WATER. 10. Choose a responsible adult that will be able to drive you home when you are discharged from your hospital stay for your surgery and can stay with you in your home for 24 hours after your procedure. You must NOT drive any vehicle or operate any machinery for 24 hours after surgery. 11. When you dress for your appointment, please wear loose fitting clothing that is appropriate to accommodate your surgical area procedure. BRING WITH YOU ANY DEVICES YOU MAY NEED: GISELA hose, ice machine, sling/swath, brace or special shoe, oversized zip-up or button up shirt, CPAP machine if staying overnight. 12. Do NOT wear jewelry, watches, or any piercings or metal for surgery- leave these valuables and money at home. 13. Do NOT wear contact lenses for surgery- glasses are okay if needed. 14. The anesthesiologist will talk with you the day of surgery and will ask you to sign a Consent Form. 15. Refrain from smoking or any type of tobacco use for at least 8 hours and marijuana for 24 hours prior to arrival for your surgery. 16. If a GREEN BLOOD band is given to you, please bring it with you for the day of surgery. 17. Notify your surgeon if you develop any illness before your surgery. 18. If you are staying overnight, please DO NOT BRING your home medications with you. 19. If you have any questions prior to surgery, please call the Preadmission Testing office at [phone], Mon.-Fri. 7 a.m.-3 p.m. Leave a voicemail if needed. Pre-Surgery Instructions: Medication Instructions allopurinoL (ZYLOPRIM) 100 mg tablet Stop taking 0 days prior to procedure ascorbic acid, vitamin C, (VITAMIN C) 1000 mg tablet Stop taking 0 days prior to procedure aspirin 81 mg Stop taking 1 week prior to procedure carvedilol (COREG) 25 mg tablet Take morning of procedure carvediloL (COREG) 25 mg tablet Take morning of procedure cholecalciferol, vitamin D3, 2,000 units capsule Stop taking 0 days prior to procedure cyanocobalamin, vitamin B-12, 1,000 mcg/mL drops Stop taking 0 days prior to procedure empagliflozin (JARDIANCE) 10 mg tablet tablet Stop taking 0 days prior to procedure ezetimibe (ZETIA) 10 mg tablet Stop taking 0 days prior to procedure ferrous sulfate 325 (65 FE) mg tablet Stop taking 0 days prior to procedure glimepiride (AMARYL) 2 mg tablet Stop taking 0 days prior to procedure isosorbide mononitrate (IMDUR) 30 mg 24 hr tablet Take morning of procedure metFORMIN (GLUCOPHAGE) 1000 mg tablet Stop taking 0 days prior to procedure olmesartan-hydrochlorothiazide (BENICAR HCT) 40-25 mg per tablet Stop taking 0 days prior to procedure pioglitazone (ACTOS) 30 mg tablet Stop taking 0 days prior to procedure tamsulosin (FLOMAX) 0.4 mg capsule Stop taking 0 days prior to procedure ZINC ORAL Stop taking 0 days prior to procedure documented in this encounter [facility] 08-23-2024 Nurse Note Preoperative Education Checklist- General Surgery date: 08/29/24 Surgery time: 101 Arrival time: 814 1. Bring a photo ID and your insurance card with you the day of surgery. You will check in at the main lobby of the [facility]- registration desk is straight ahead as soon as you walk in. Tell them you are here for surgery. 2. If you have a Living Will/Durable Power of [employer] Specialist for Health Care that is not on file here, please bring a copy the day of surgery. 3. Please shower/bathe the night before surgery with the provided soap or wipes. Do not shower the morning of surgery- you will do use wipes when you arrive here at the hospital before getting into your surgical gown. Do not shave the area of your procedure for 2 days prior to your surgery. 4. NO powder, lotion, perfume/cologne, aftershave, make-up, deodorant, or hair products after you have bathed. 5. NO nail south african/acrylic on at least one finger. If you are having a hand, wrist or foot surgery then all nail south african and artificial/acrylic nails must be removed from that hand or foot. 6. Avoid ALL Aspirin and non-steroidal anti-inflammatory drugs and certain vitamins (Ibuprofen, Advil, Aleve, Excedrin, Meloxicam, Celebrex, fish/krill oil, etc.) for 7 days prior to surgery as instructed by your surgeon and/or your prescribing doctor. Tylenol IS ALLOWED. If you are on Ticlid, Xarelto, Eliquis, Pradaxa, Plavix or Coumadin, please check with your prescribing doctor for instructions for when to stop them. 7. If you use an inhaler, continue to use it routinely. 8. Nothing to eat or drink (not even water, gum, mints, or hard candy!) AFTER midnight prior to your surgery. 9. Take only medications that you are instructed to on the morning of surgery with a TINY SIP OF WATER. 10. Choose a responsible adult that will be able to drive you home when you are discharged from your hospital stay for your surgery and can stay with you in your home for 24 hours after your procedure. You must NOT drive any vehicle or operate any machinery for 24 hours after surgery. 11. When you dress for your appointment, please wear loose fitting clothing that is appropriate to accommodate your surgical area procedure. BRING WITH YOU ANY DEVICES YOU MAY NEED: GISELA hose, ice machine, sling/swath, brace or special shoe, oversized zip-up or button up shirt, CPAP machine if staying overnight. 12. Do NOT wear jewelry, watches, or any piercings or metal for surgery- leave these valuables and money at home. 13. Do NOT wear contact lenses for surgery- glasses are okay if needed. 14. The anesthesiologist will talk with you the day of surgery and will ask you to sign a Consent Form. 15. Refrain from smoking or any type of tobacco use for at least 8 hours and marijuana for 24 hours prior to arrival for your surgery. 16. If a GREEN BLOOD band is given to you, please bring it with you for the day of surgery. 17. Notify your surgeon if you develop any illness before your surgery. 18. If you are staying overnight, please DO NOT BRING your home medications with you. 19. If you have any questions prior to surgery, please call the Preadmission Testing office at [phone], Mon.-Fri. 7 a.m.-3 p.m. Leave a voicemail if needed. Pre-Surgery Instructions: Medication Instructions allopurinoL (ZYLOPRIM) 100 mg tablet Stop taking 0 days prior to procedure ascorbic acid, vitamin C, (VITAMIN C) 1000 mg tablet Stop taking 0 days prior to procedure aspirin 81 mg Stop taking 1 week prior to procedure carvedilol (COREG) 25 mg tablet Take morning of procedure carvediloL (COREG) 25 mg tablet Take morning of procedure cholecalciferol, vitamin D3, 2,000 units capsule Stop taking 0 days prior to procedure cyanocobalamin, vitamin B-12, 1,000 mcg/mL drops Stop taking 0 days prior to procedure empagliflozin (JARDIANCE) 10 mg tablet tablet Stop taking 0 days prior to procedure ezetimibe (ZETIA) 10 mg tablet Stop taking 0 days prior to procedure ferrous sulfate 325 (65 FE) mg tablet Stop taking 0 days prior to procedure glimepiride (AMARYL) 2 mg tablet Stop taking 0 days prior to procedure isosorbide mononitrate (IMDUR) 30 mg 24 hr tablet Take morning of procedure metFORMIN (GLUCOPHAGE) 1000 mg tablet Stop taking 0 days prior to procedure olmesartan-hydrochlorothiazide (BENICAR HCT) 40-25 mg per tablet Stop taking 0 days prior to procedure pioglitazone (ACTOS) 30 mg tablet Stop taking 0 days prior to procedure tamsulosin (FLOMAX) 0.4 mg capsule Stop taking 0 days prior to procedure ZINC ORAL Stop taking 0 days prior to procedure [facility] 06-15-2024 Note [facility] 06-15-2024 History of Presen t illness Narrative Images from the original note were not included. Heart, Vascular and Thoracic [facility] [place] Department of Cardiovascular Medicine SECTION OF INTERVENTIONAL CARDIOLOGY OUTPATIENT VISIT DATE June 15, 2024 OUTPATIENT VISIT TYPE ESTABLISHED PRIMARY CARE PHYSICIAN: Jamey Crane [address] [place] [address] REFERRING PHYSICIAN: Rosalia Trinidad [address] [facility] [id number] CHIEF COMPLAINT: Patient presents with: Follow Up HISTORY OF PRESENT ILLNESS: Mr. Hong is a 69 year old male who presents today for follow-up visit . He denies . PAST CARDIAC HISTORY: See HPI PAST MEDICAL HISTORY Diagnosis Date Cataract bilateral, surgery Coronary artery disease Diabetes (HCC) Dyslipidemia Hiatal hernia Hypertension Myocardial infarction (HCC) Retinal tear 2017 PAST SURGICAL HISTORY Procedure Laterality Date APPENDECTOMY 2003 HERNIA REPAIR HX PAST SURGICAL HISTORY OF hemorrhoids PCI/STENT 2006 stent x 3 RCA, 1 RPLB SOCIAL HISTORY Social History Tobacco Use Smoking status: Never Smokeless tobacco: Never Vaping Use Vaping Use: Never used Substance Use Topics Alcohol use: Never Drug use: Never FAMILY HISTORY Problem Relation Age of Onset Stroke Mother Diabetes Mother other (hld) Mother other (htn) Mother Prostate Cancer Father Prostate Cancer Brother Stroke Brother ALLERGIES: ALLERGIES No Known Allergies MEDICATIONS: Current Outpatient Medications Medication Sig glimepiride (AMARYL) 2 mg tablet Take 2 mg by mouth daily with breakfast. isosorbide mononitrate ER (IMDUR) 30 mg 24 hr tablet Take 30 mg by mouth once daily. clopidogrel (PLAVIX) 75 mg tablet Take 75 mg by mouth once daily. olmesartan-hydroCHLOROthiazide (BENICAR HCT) 40-25 mg per tablet Take 1 tablet by mouth once daily. carvedilol (COREG) 25 mg tablet Take 25 mg by mouth two times a day with meals. ZINC ORAL Take 50 mg by mouth once daily. cyanocobalamin, vitamin B-12, (VITAMIN B-12 ORAL) Take 2,500 mg by mouth once daily. Ascorbic Acid 1,000 mg tablet Take 1,000 mg by mouth. Cholecalciferol, Vitamin D3, 50 mcg (2,000 unit) cap Take 2,000 Units by mouth. niacin 500 mg CR capsule Take 500 mg by mouth nightly 4 tabs hs metFORMIN (GLUCOPHAGE) 1,000 mg tablet Take 1 tablet by mouth two times a day with meals. ezetimibe (ZETIA) 10 mg tablet Take 1 tablet by mouth once daily. empagliflozin (JARDIANCE) 10 mg tablet Take 1 tablet by mouth daily with breakfast. atorvastatin (LIPITOR) 40 mg tablet Take 1 tablet by mouth once daily. allopurinol (ZYLOPRIM) 100 mg tablet Take 1 tablet by mouth once daily. pioglitazone (ACTOS) 30 mg tablet Take 1 tablet by mouth once daily. aspirin 81 mg chewable tablet Take 1 tablet by mouth once daily. acetaminophen (TYLENOL) 500 mg tablet Take 2 tablets by mouth every 6 hours as needed for pain. amLODIPine (NORVASC) 5 mg tablet Take 1 tablet by mouth once daily. tamsulosin (FLOMAX) 0.4 mg Take 1 capsule by mouth once daily. No current facility-administered medications for this visit. REVIEW OF SYSTEMS: PHYSICAL EXAMINATION: There were no vitals taken for this visit. CARDIOVASCULAR MEDICINE TESTING: Last ECHO Result Conclusion ECHO Collected: 12/04/2023 2:15 PM (Final result) Impression: CONCLUSIONS: - Technically difficult exam due to body habitus. - Exam indication: S/P CABG (10/28/2023) - The left ventricle is mildly dilated. Left ventricular systolic function is mildly decreased. EF = 50 5% (visual est.) Definity contrast used for endocardial border detection. Indeterminate left ventricular diastolic dysfunction. - The right ventricle is normal in size. Right ventricular systolic function is normal. - Difficult to determine AV morphology on today's exam. - Exam was compared with the prior echocardiographic exam performed on 10/28/2023. LV function improved on direct comparison. * * * Final * * * Last EKG Result Conclusion ECG COMPLETE Collected: 06/14/2024 11:05 AM (Preliminary result) Impression: NORMAL SINUS RHYTHM NORMAL ECG Last CT Result Conclusion CT CHEST WO IVCON Exam End: 08/24/2023 7:58 AM (Final result) Impression: *Study performed for preoperative planning purposes. *Heavy coronary artery calcifications and/or stents. *Normal appearance of the thoracic aorta. *Small bilateral pleural effusions. All CT scans at this facility use dose modulation, iterative reconstruction, and/or weight based dosing when appropriate to reduce radiation dose to as low as reasonably achievable. Electronically signed: Calvin Candelario. REPORT TITLE Staff Note. FOLLOW UP VISIT CABG x3, October 2023, type 2 diabetes, hypertension, hyperlipidemia, obesity. HISTORY OF PRESENT ILLNESS Following his last visit in November 2023, the patient completed phase 2 cardiac rehabilitation in February. He now walks with 35 to 40 minutes 3 times weekly. Planning to join a [employer] for indoor exercises. He feels well. Has an occasional chest discomfort associated with the sneezing or coughing. Mild orthostatic dizziness. Retired early this year. MEDICATIONS Aspirin 81 mg, atorvastatin 40 mg, ezetimibe 10 mg, olmesartan-HCT 40-25 mg, clopidogrel 75 mg, isosorbide mononitrate 30 mg, carvedilol 25 mg b.i.d., metformin 1000 mg b.i.d., pioglitazone 30 mg, glimepiride 2 mg, Jardiance 10 mg, tamsulosin 0.4 mg, allopurinol 100 mg, vitamin C, zinc, niacin. PHYSICAL EXAMINATION Weight 240 pounds, blood pressure 129/77, pulse 58, regular. No carotid bruits. Lungs: Clear to auscultation. Heart: Regular rhythm, grade 1/6 systolic ejection murmur. Abdomen: Soft. No peripheral edema. STUDIES DURING THIS VISIT EKG, sinus rhythm 60 per minute. Normal tracing. LABORATORY STUDIES Lipid panel: Cholesterol 168, HDL 38, LDL 68, triglycerides 312 mg/dL. Glucose 78, hemoglobin A1c 6.3%. BUN 32, creatinine 1.27, GFR 62. IMPRESSION The patient is doing well 7 months post CABG. Functional class 1. Gained more than 20 pounds since last visit. Hypertension, diabetes and lipids are well controlled. PLAN AND RECOMMENDATIONS 1. Encouraged to start regular cardiovascular exercise program of 30 minutes, 3 to 5 days weekly. 2. Try to reduce weight below 220 pounds. 3. Discontinue clopidogrel and niacin. CONTACT INFORMATION: Rosalia Trinidad M.D. Staff Cardiology Teacher, Interventional Cardiology [facility] [place] Department of Cardiovascular Medicine Heart and Vascular [facility] Desk [id number] [place] [address] Office - [phone] extension [phone] Office Appointments: [phone] extension [phone] documented in this encounter [facility] 05-27-2024 Telephone encounter Note Second attempt to reach patient. Patient states that he will discuss with his ride over the weekend and he will call the office on Thursday. [facility] 05-27-2024 Miscellaneous Notes Second attempt to reach patient. Patient states that he will discuss with his ride over the weekend and he will call the office on Thursday. Called patient to r/s appt due to unplanned provider absence Left VM on mobile number documented in this encounter [facility] 05-27-2024 Telephone encounter Note Called patient to r/s appt due to unplanned provider absence Left VM on mobile number [facility] 01-04-2024 History of Presen t illness Narrative OUTPATIENT NUTRITION CARDIAC REHAB CONSULTATION - ADULT Date: 10/31/2024 Patient: Roland Hong : 1955 Also Present at Session: self Diagnosis / Reason for Visit: No chief complaint on file. Referring Provider: Cardiac Rehab Assessment: Age: 68 y.o. Sex: male Height/Weight(s): Ht Readings from Last 1 Encounters: 05/01/22 172.7 cm (5' 8 ) Wt Readings from Last 3 Encounters: 05/01/22 104.3 kg (230 lb) 10/20/21 99.8 kg (220 lb) 01/15/21 101.2 kg (223 lb) Body Mass Index: There is no height or weight on file to calculate BMI. BMI Category: Obese class 2 (35.00- 39.99) Felda Body Weight: 69.6 kg Past Medical History: Past Medical History: Diagnosis Date Diabetes mellitus type 2, controlled ([facility] Hyperlipidemia Hypertension Myocardial infarction ([facility] Retinal detachment Visual impairment Past Surgical History: Past Surgical History: Procedure Laterality Date CARDIAC SURGERY CORONARY ANGIOPLASTY WITH STENT PLACEMENT x 4, April 24, 2006 EXTRACTION CATARACT INTRAOCULAR LENS Right 05/01/2022 Performed by Natividad Poole MD at [facility] EYE SURGERY RETINAL DETACHMENT SURGERY Medications: Current Outpatient Medications Medication Sig Dispense Refill allopurinoL (ZYLOPRIM) 100 mg tablet Take 100 mg by mouth in the morning. ascorbic acid, vitamin C, (VITAMIN C) 1000 mg tablet Take 1,000 mg by mouth in the morning. aspirin 81 mg Take 81 mg by mouth daily. carvedilol (COREG) 25 mg tablet 2 (two) times a day. Take 25 mg by mouth daily cholecalciferol, vitamin D3, 2,000 units capsule Take 2,000 Units by mouth in the morning. clopidogrel (PLAVIX) 75 mg tablet Take 75 mg by mouth daily docusate sodium (COLACE) 100 mg capsule Take 100 mg by mouth nightly 2 tabs empagliflozin (JARDIANCE) 10 mg tablet tablet JARDIANCE 10 MG TABLET ezetimibe (ZETIA) 10 mg tablet Take 10 mg by mouth. febuxostat (ULORIC) 80 mg tablet Take 80 mg by mouth daily. ferrous sulfate 325 (65 FE) mg tablet Take by mouth. gemfibroziL (LOPID) 600 mg tablet ibuprofen (ADVIL,MOTRIN) 800 mg tablet Take 1 tablet (800 mg total) by mouth 3 (three) times a day as needed for pain for up to 30 doses. (Patient not taking: Reported on 05/01/2022) 30 tablet 0 metFORMIN (GLUCOPHAGE) 1000 mg tablet Take 1,000 mg by mouth 2 (two) times a day with meals. niacin (VITAMIN B3) 500 mg CR capsule Take 500 mg by mouth nightly 4 tabs hs olmesartan-hydrochlorothiazide (BENICAR HCT) 40-25 mg per tablet Take 1 tablet by mouth daily omega-3 acid ethyl esters (LOVAZA) 1 gram capsule Take 1,000 mg by mouth 3 times daily 4 tabs at hs (Patient not taking: Reported on 05/01/2022) pioglitazone (ACTOS) 30 mg tablet polycarbophil (FIBERCON) 625 mg tablet Take 625 mg by mouth daily 2 tabs at hs sitaGLIPtin (JANUVIA) 100 mg tablet Take 100 mg by mouth daily sodium,potassium,mag sulfates (SUPREP BOWEL PREP KIT) 17.5-3.13-1.6 gram recon soln 177 ml,actual weight, 2 times daily, Oral 1 kit 0 No current facility-administered medications for this visit. Lab Results: No results found for: HGBA1C Lab Results Component Value Date CREATININE 0.93 03/29/2016 No components found for: CMP Lab Results Component Value Date K 3.7 03/29/2016 No components found for: BMP No results found for: LIPIDPROF No results found for: PHOSPHORUS No results found for: CPEPTIDE Lab Results Component Value Date MCH 26.2 (L) 03/29/2016 MCHC 32.9 03/29/2016 MCV 80 (L) 03/29/2016 HCT 42.9 03/29/2016 HGB 14.1 03/29/2016 MPV 9.6 03/29/2016 PLT 153 03/29/2016 RBCCOUNT 5.38 03/29/2016 RDW 14.1 03/29/2016 WBC 11.4 (H) 03/29/2016 Nutrition Diagnosis: Food and Nutrition Knowledge deficit related to the need for heart healthy diet education as evidenced by currently in the cardiac rehab program. Intervention: Nutrition Education: Heart Healthy Diet as follows, Plate Method, Label Reading, Portion Sizes, Low Saturated Fats, Low Added Sugar Intake, Low Na and Increased Physical Activity as per doctor's recommendations during and after cardiac rehab program. Review of overall healthy dietary pattern that emphasizes: a variety of fruits and vegetables, whole grains, low-fat products, skinless poultry and fish, nuts and legumes, non-tropical vegetable oils. Limit: saturated fat, trans fat, sodium, red meat, sweets and sugar sweetened beverages. Educated patient on cardiac/heart healthy diet. Reviewed low fat cooking methods and food choices. Discussed the different types of fats and their effects on cholesterol levels. Provided handout which reviewed these topics. The information that was given was based on the Academy of Nutrition and Dietetics, Nutrition Care Manual (Plate Method, Cardiac Diet & Low Fat handouts) and [place] [employer] Heart Healthy Guidelines. Patient exercised knowledge of the information based on the answers to the questions. Monitoring and Evaluation: The following goals were discussed with the patient: 1. Use the plate method and choose healthy foods for portion control and weight management. Follow the [place] [employer] recommendations when eating out, and keep an eye on portion sizes. 2. Limit added sugars (beverages and foods with added sugars). Eat a variety of fresh, frozen and canned vegetables and fruits without high-calorie sauces or added salt and sugars. 3. Choose low fat cooking methods and food choices. Select fat-free (skim) and low-fat (1%) dairy products. Choose poultry and fish without skin and prepare them in healthy ways without added saturated and transfat. If you choose to eat meat, look for the leanest cuts available and prepare them in healthy and delicious ways. Limit saturated fat and trans fat and replace them with the better fats, monounsaturated and polyunsaturated. If you need to lower your blood cholesterol, reduce saturated fat to no more than 5 to 6 percent of total calories. For someone eating 2,000 calories a day, that s about 13 grams of saturated fat. Avoid foods containing partially hydrogenated vegetable oils to reduce trans fat in your diet. Eat a variety of fish at least twice a week, especially fish containing omega-3 fatty acids (for example, salmon, trout and chapa). 4. No skipping meals - Keep with routine meal times. 5. Read labels and follow low sodium guidelines. Choose foods with less sodium and prepare foods with little or no salt. To lower blood pressure, aim to eat no more than 2,400 milligrams of sodium per day. Reducing daily intake to 1,500 mg is desirable because it can lower blood pressure even further. If these goals can t be met right now, even reducing sodium intake by 1,000 mg per day can benefit blood pressure. 6. Increase fresh fruits, vegetables, whole grains and beans (legumes) gradually in diet along with extra fluids. Replace high-calorie foods with fruits and vegetables. Choose fiber-rich whole grains for most grain servings. 7. Continue exercise (physical movement or activity) with physician's approval after cardiac rehab as prescribed . 9. Follow cardiac heart healthy diet. Follow-up Plan: No return appointment scheduled. Contact information was provided and patient was encouraged to call if questions arise. QUINCY Bond RD Clinical Dietitian [facility] documented in this encounter [facility] 12-30-2023 Miscellaneous Notes Images from the original note were not included. Pt called Dr. Trinidad's office to confirm his return to work date - Office reviewed patients office visits notes and informed pt that his RTW date is 2023 - Pt asked office staff to inquire with Dr. Morales if this date is still accurate or not - Office informed pt that this was the date that was indicated in his after visit summary from Dr. Morales - Pt asked office to still ask Dr. Morales if this date is still confirmed and/or if this date should be extended - Per pt request, office will inquire w/ Dr. Morales - Call back #: documented in this encounter [facility] 12-14-2023 Note [facility] 12-09-2023 Note [facility] 11-13-2023 Note [facility] 11-10-2023 Note [facility] 11-10-2023 Note [facility] 11-03-2023 Miscellaneous Notes 1. Have you noticed any increase in shortness of breath since you left the hospital? -No 2. Have you noticed any increased swelling in your feet , ankles, or stomach? (Skip for vascular pts) -No 3. Have you gained more than 2-3 pounds since discharge? (Skip for vascular & EP pts) -No 4. Have you noticed any change in your incision or wound since you were discharged? (as we want you to be aware of any signs of infection) -No 5. Are you having any increased pain since discharge? If yes: What type of pain and where? (pressure, sharp pain, dull pain, etc.) -No 6. Have you had any unplanned trips to the emergency department or hospital since you were discharged? If yes - why? -No 7. Do you have any questions about your medications? -No 8. Were you able to fill all of the prescribed medications? -Yes 9. Do you have a doctor s appointment scheduled or is someone working on getting you a follow-up appointment? -Yes All clear and closing statement given. PD RN verified patients name and date of . Valentina Edge RN documented in this encounter [facility] 11-02-2023 Note [facility] 11-02-2023 Note [facility] 11-02-2023 Note [facility] 11-01-2023 Note [facility] 10-31-2023 Note [facility] 10-30-2023 Note [facility] 10-30-2023 Note [facility] 10-30-2023 Miscellaneous Notes Office rec'd call from [employer] for FMLA asking when pt is scheduled for post op appt. She was told by the surgeon's office to contact Dr. Trinidad's office for further instruction. Office explained that patient is still hospitalized and when he is discharged, this is when the post op appointments are scheduled. She has been provided with fax number for documentation. documented in this encounter [facility] 10-30-2023 Note [facility] 10-29-2023 Note [facility] 10-28-2023 Note [facility] 10-28-2023 Note [facility] 10-28-2023 Note [facility] 10-28-2023 Note [facility] 10-28-2023 History of Past i llness Narrative Problem Noted Date Diagnosed Date Resolved Date Hypotension, unspecified 10/28/202305/2023 Preop testing 10/26/2023 10/30/2023 [facility] PRE-OP CHECKLIST Informed Consent Completed: No DR. BATISTA TO CONSENT DOS STS Score: CAD: Yes - CAD on Problem List: Yes Is intended procedure a CABG: Yes - is a beta jackie ordered? YES dos beta jackie ORDERED H & P completed: YES PA/LAT: Pending CT: N/A MRI: N/A LE US: N/A Cath: Yes - reviewed: Yes EKG: COMPL Is patient on Amiodarone? No Echo: COMPL EF %:45 PI's: completed Carotid: Completed OSH Mapping: Completed OSH Dental: na PFT's: N/A UA: nml HCG:N/A ABO/ABO Confirmed: No pending Blood ordered: NO SA Swab: Yes - results: Pending Last Dose of Anticoagulation: PLAVIX 10/23/23 REMAIN ON 81 MG ASA STOPPED VITAMINS 10/23/23 (OZEMPIC HELD ON 10/26/23 Anticoagulant & Antiplatelet Medications Patient Encounter Information Not Found Op Note: N/A Pacer Check: NA Implants: no Consults: DM: Yes TYPE II Cardiac Surgical prep: N/A SIGNATURE: Olivia Downing RN DATE of SERVICE: 10/26/2023 TIME of SERVICE: 6:49 PM CHECKED BY: documented as of this encounter (statuses as of 10/30/2023) [facility]12-06-2023 History of Past illness Narrative* Problem Noted Date Diagnosed Date Resolved Date Hypotension, unspecified 10/28/202305/2023 Preop testing 10/26/2023 10/30/2023 Overview[facility] PRE-OP CHECKLIST Informed Consent Completed: No DR. BATISTA TO CONSENT DOS STS Score: CAD: Yes - CAD on Problem List: Yes Is intended procedure a CABG: Yes - is a beta jackie ordered? YES dos beta jackie ORDERED H & P completed: YES PA/LAT: Pending CT: N/A MRI: N/A LE US: N/A Cath: Yes - reviewed: Yes EKG: COMPL Is patient on Amiodarone? No Echo: COMPL EF %:45 PI's: completed Carotid: Completed OSH Mapping: Completed OSH Dental: na PFT's: N/A UA: nml HCG:N/A ABO/ABO Confirmed: No pending Blood ordered: NO SA Swab: Yes - results: Pending Last Dose of Anticoagulation: PLAVIX 10/23/23 REMAIN ON 81 MG ASA STOPPED VITAMINS 10/23/23 (OZEMPIC HELD ON 10/26/23 Anticoagulant & Antiplatelet Medications Patient Encounter Information Not Found Op Note: N/A Pacer Check: NA Implants: no Consults: DM: Yes TYPE II Cardiac Surgical prep: N/A SIGNATURE: Olivia Downing RN DATE of SERVICE: 10/26/2023 TIME of SERVICE: 6:49 PM CHECKED BY: documented as of this encounter (statuses as of 11/03/2023) [facility]12-06[facility] History of Past illness Narrative* Problem Noted Date Diagnosed Date Resolved Date Hypotension, unspecified 10/28/202305/2023 Preop testing 10/26/2023 10/30/2023 Overview: [facility] PRE-OP CHECKLIST Informed Consent Completed: No DR. BATISTA TO CONSENT DOS STS Score: CAD: Yes - CAD on Problem List: Yes Is intended procedure a CABG: Yes - is a beta jackie ordered? YES dos beta jackie ORDERED H & P completed: YES PA/LAT: Pending CT: N/A MRI: N/A LE US: N/A Cath: Yes - reviewed: Yes EKG: COMPL Is patient on Amiodarone? No Echo: COMPL EF %:45 PI's: completed Carotid: Completed OSH Mapping: Completed OSH Dental: na PFT's: N/A UA: nml HCG:N/A ABO/ABO Confirmed: No pending Blood ordered: NO SA Swab: Yes - results: Pending Last Dose of Anticoagulation: PLAVIX 10/23/23 REMAIN ON 81 MG ASA STOPPED VITAMINS 10/23/23 (OZEMPIC HELD ON 10/26/23 Anticoagulant & Antiplatelet Medications Patient Encounter Information Not Found Op Note: N/A Pacer Check: NA Implants: no Consults: DM: Yes TYPE II Cardiac Surgical prep: N/A SIGNATURE: Olivia Downing RN DATE of SERVICE: 10/26/2023 TIME of SERVICE: 6:49 PM CHECKED BY: documented as of this encounter (statuses as of 12/30/2023) [facility]12-06-20[facility] History of Past illness Narrative* Problem Noted Date Diagnosed Date Resolved Date Hypotension, unspecified 10/28/202305/2023 Preop testing 10/26/2023 10/30/2023 Overview: [facility] PRE-OP CHECKLIST Informed Consent Completed: No DR. BATISTA TO CONSENT DOS STS Score: CAD: Yes - CAD on Problem List: Yes Is intended procedure a CABG: Yes - is a beta jackie ordered? YES dos beta jackie ORDERED H & P completed: YES PA/LAT: Pending CT: N/A MRI: N/A LE US: N/A Cath: Yes - reviewed: Yes EKG: COMPL Is patient on Amiodarone? No Echo: COMPL EF %:45 PI's: completed Carotid: Completed OSH Mapping: Completed OSH Dental: na PFT's: N/A UA: nml HCG:N/A ABO/ABO Confirmed: No pending Blood ordered: NO SA Swab: Yes - results: Pending Last Dose of Anticoagulation: PLAVIX 10/23/23 REMAIN ON 81 MG ASA STOPPED VITAMINS 10/23/23 (OZEMPIC HELD ON 10/26/23 Anticoagulant & Antiplatelet Medications Patient Encounter Information Not Found Op Note: N/A Pacer Check: NA Implants: no Consults: DM: Yes TYPE II Cardiac Surgical prep: N/A SIGNATURE: Olivia Downing RN DATE of SERVICE: 10/26/2023 TIME of SERVICE: 6:49 PM CHECKED BY: documented as of this encounter (statuses as of 01/05/2024) [facility]12[facility]05[facility] History and physical note* Olivia Downing RN - 10/27/2023 2:35 PM EST CHART COPY-DO NOT DISCARD CARDIOVASCULAR SURGERY PRE-OPERATIVE ASSESSMENT NAME: Roland Hong Alert Notes: DATE: 10/27/2023 SEX: male : 1955 AGE: [age] year old Estimated body mass index is 34.36 kg/m as calculated from the following: Height as of an earlier encounter on 10/27/23: 172.7 cm (5' 8 ). Weight as of an earlier encounter on 10/27/23: 102.5 kg (226 lb). STS Score No data recorded No data recorded Patient scheduled for surgery on: No data recorded [facility] MD: Rosalia Trinidad M.D. CHIEF COMPLAINT: Pre-Op Open Heart Surgery MEDICATIONS: Current Outpatient Medications Medication Sig pioglitazone (ACTOS) 30 mg tablet Take 30 mg by mouth once daily. allopurinol (ZYLOPRIM) 100 mg tablet Take 100 mg by mouth once daily. aspirin 81 mg chewable tablet Take 81 mg by mouth once daily. atorvastatin (LIPITOR) 40 mg tablet Take 40 mg by mouth once daily. carvedilol (COREG) 25 mg tablet Take 25 mg by mouth two times a day with meals. isosorbide mononitrate ER (IMDUR) 30 mg 24 hr tablet Take 30 mg by mouth once daily. empagliflozin (JARDIANCE) 10 mg tablet Take 10 mg by mouth daily with breakfast. metFORMIN (GLUCOPHAGE) 1,000 mg tablet Take 1,000 mg by mouth two times a day with meals. olmesartan-hydroCHLOROthiazide (BENICAR HCT) 40-25 mg per tablet Take 1 tablet by mouth once daily. semaglutide (OZEMPIC) 0.25 mg or 0.5 mg(2 mg/1.5 mL) pen Inject 0.5 mg subcutaneously one time a week. ezetimibe (ZETIA) 10 mg tablet Take 10 mg by mouth once daily. mupirocin (BACTROBAN) 2 % ointment Apply a small amount in each nostril using a cotton swab twice the day before surgery and once the morning of surgery. No current facility-administered medications for this visit. ALLERGIES: ALLERGIES No Known Allergies LATEX ALLERGY: No FOOD SENSITIVITIES: No ANTICOAGULANTS: PLAVIX 10/23/23 remain on ASA 81 MG preop / stopped VITAMINS 10/23/23 STEROIDS: No HISTORIES: FAMILY HISTORY Problem Relation Age of Onset Stroke Mother Diabetes Mother other (hld) Mother other (htn) Mother Prostate Cancer Father Prostate Cancer Brother Stroke Brother PAST MEDICAL HISTORY Diagnosis Date Cataract bilateral, surgery Coronary artery disease Diabetes (HCC) Dyslipidemia Hiatal hernia Hypertension Myocardial infarction (HCC) Retinal tear 2017 PAST SURGICAL HISTORY Procedure Laterality Date APPENDECTOMY 2003 HERNIA REPAIR HX PAST SURGICAL HISTORY OF hemorrhoids PCI/STENT 2006 stent x 3 RCA, 1 RPLB Social History Tobacco Use Smoking status: Never Smokeless tobacco: Never Vaping Use Vaping Use: Never used Substance Use Topics Alcohol use: Never Drug use: Never REVIEW OF SYSTEMS: GEN: Denies Complaints HEENT: Glasses / BILATERAL CATARACT SURGERY AND LEFT RETINA TEAR SURGERY DERM: Denies Dermatological Complaints 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 PERFUSION INDEX: RIGHT 98 LEFT 73 Pacer Check: NA CARDIAC EVALUATION: Cardiac Cath: Date - OSH 07/02/23 Ultrasound: Date - CAROTIDS OSH PFT: Date - NA ECHO: Last ECHO Result Conclusion ECHO Collected: 10/27/2023 12:36 PM (Final result) Impression: CONCLUSIONS: - Technically difficult exam due to body habitus. - Exam indication: Pre-op cardiovascular examination - There is a resting wall motion abnormality in the territory of the LAD. - The left ventricle is normal in size. There is upper septal left ventricular hypertrophy. Left ventricular systolic function is mildly decreased. EF = 45 5% (visual est.) - The right ventricle is normal in size. Right ventricular systolic function is normal. - The patient has not had a prior CC echocardiographic exam for comparison. * * * Final * * * CT Scan: NA PER NPM MRI: CXR: No results found. EK10/27/23 Dental NA ? Recent Labs 10/27/23 1054 WBC 8.03 HB 12.3* HCT 39.6 PLT 160 INR 1.0 APTT 28.5 PTSEC 10.9 Pre Op Instructions per protocol reviewed and handout given to patient . Patient Education completed and documented. Instructed to start Bactroban per protocol. Emotional support provided to patient and family. All questions and concerns adressed. Signature: Olivia Downing RN See Cardiology History and Physical dated CARDS APPT 10/27/23 [facility] History of Present illness Narrative* Lila Ramsay RT(R) - 10/27/2023 11:15 AM EST Radiology Service Progress Note PATIENT NAME: Roland Hong DATE OF SERVICE: October 27, 2023 TIME: 11:22 AM PATIENT IDENTITY VERIFICATION COMPLETED USING TWO (2) IDENTIFIERS: Name and Date of confirmedby patient verbally. FALL SCREENING: Has the patient had 2 falls in the last year or 1 fall with injury or currently using an Ambulatory Assistive Device (Walker, Cane, Wheelchair, Crutches, etc.)? No PATIENT GENDER DATA: Male PATIENT RELEVANT IMPLANT DATA REVIEWED: Not Applicable RADIOLOGY DEPARTMENT: General X-ray: Exam(s) Completed: Chest X-Ray PERIPHERAL IV DATA: Not applicable SIGNED BY: RT Inder(R) October 27, 2023 11:22 AM documented in [facility] encounter[facility] History of Present illness Narrative* Rosalia Trinidad MD - 10/27/2023 9:15 AM EST Images from the original note were not included. [facility] Department of Cardiovascular Medicine SECTION OF INTERVENTIONAL CARDIOLOGY OUTPATIENT VISIT DATE October 26, 2023 OUTPATIENT VISIT TYPE NEW PRIMARY CARE PHYSICIAN: Jamey Crane [address] [place] [address] REFERRING PHYSICIAN: Coco Batista [id number] [facility] [id number] CHIEF COMPLAINT: New Pre op HISTORY OF PRESENT ILLNESS: Mr. Hong is a 68 year old male who presents today . NURSING INTAKE: Mr Hong is a 68 year old male from [place], [place]. He has a past medical history significant for: CAD s/p PCI w/ VERONA x 4 (3 RCA, 1 RPLB) 2005 HTN DM2 Hyperlipidemia Risk factors for coronary artery disease hyperlipidemia, hypertension, diabetes, obesity Mr Hong reports that in April, he began experiencing chest discomfort, he mentioned this to PCP. Due to not having stress test recently, that was done and was abnormal. He was then referred to cardiology (Dr Felix at [facility]) and underwent LHC showing severe CAD. He was then referred to [facility] for OHS. He reports chest pain with exertion/stress, SOB with exertion and cough. He denies orthopnea, PND, palpitations, lightheadedness, syncope, claudication, leg swelling, and wheezing. Diet / Nutrition: no specific diet, decreased appetite since use of ozempic Weight: lost 20 lbs since started on ozempic Exercise: no specific exercise regimen. IMAGES IN SYNGO 07/02/23 Coronary angiogram Final Impressions: -Severe [place] CAD -100% occluded mid LAD immediately after the take off of the first diagonal branch -99% proximal stenosis of first diagonal branch of LAD which is a large branch -99% ISR of mid RCA stent. -100% ISR of RPLB stent 07/02/23 Echo Conclusions Left Ventricle: The left ventricle appears normal in size. Global left ventricular systolic function is at lower limits of normal. The EF is 50 % visually. Left ventricular wall thickness is normal. Regional wall motion abnormalities (see diagram). Right Ventricle: The right ventricle is normal in size. Normal right ventricular systolic function. Unable to assess right sided pressures due to lack of measurable tricuspid regurgitation. Left Atrium: The left atrium is normal in size. 09/17/[address] Myocardial metabolic evaluation PET examination revealed viable myocardium in the inferior wall and septal wall at the areas of significant decreased perfusion in the resting perfusion nuclear medicine examination. However, nonviable myocardium and apical infarct extending to the distal inferior and septal sainz is appreciated. No abnormalities appreciated in the anterior or lateral sainz. 08/24/23 Carotid duplex Right: Heterogeneous, irregular plaque with no significant ICA spectral Doppler or color flow disturbances: ICA 73/25 cm/sec; consistent with 1-49% diameter reduction. Antegrade vertebral artery flow. Left: Heterogeneous, irregular plaque with no significant ICA spectral Doppler or color flow disturbances: ICA 68/26 cm/sec; consistent with 1-49% diameter reduction. Antegrade vertebral artery flow. Notes: Indication: Atherosclerosis of [place] coronary artery of [place] heart I25.10 - Dizziness - Giddiness - Pre Op Right: Heterogeneous, irregular plaque with no significant ICA spectral Doppler or color flow disturbances: ICA 73/25 cm/sec; consistent with 1-49% diameter reduction. Antegrade vertebral artery flow. Left: Heterogeneous, irregular plaque with no significant ICA spectral Doppler or color flow disturbances: ICA 68/26 cm/sec; consistent with 1-49% diameter reduction. Antegrade vertebral artery flow. Conclusions: Antegrade flow of bilateral vertebral arteries. Normal both internal carotid arteries. 08/24/23 PFT PAST MEDICAL HISTORY Diagnosis Date Cataract bilateral, surgery Coronary artery disease Diabetes (HCC) Dyslipidemia Hiatal hernia Hypertension Myocardial infarction (HCC) Retinal tear 2017 PAST SURGICAL HISTORY Procedure Laterality Date APPENDECTOMY 2003 HERNIA REPAIR HX PAST SURGICAL HISTORY OF hemorrhoids PCI/STENT 2005 stent x 3 RCA, 1 RPLB SOCIAL HISTORY Social History Tobacco Use Smoking status: Never Smokeless tobacco: Never Vaping Use Vaping Use: Never used Substance Use Topics Alcohol use: Never Drug use: Never FAMILY HISTORY Problem Relation Age of Onset Stroke Mother Diabetes Mother other (hld) Mother other (htn) Mother Prostate Cancer Father Prostate Cancer Brother Stroke Brother ALLERGIES: ALLERGIES No Known Allergies MEDICATIONS: pioglitazone (ACTOS) 30 mg tablet Take 30 mg by mouth once daily. allopurinol (ZYLOPRIM) 100 mg tablet Take 100 mg by mouth once daily. aspirin 81 mg chewable tablet Take 81 mg by mouth once daily. atorvastatin (LIPITOR) 40 mg tablet Take 40 mg by mouth once daily. carvedilol (COREG) 25 mg tablet Take 25 mg by mouth two times a day with meals. isosorbide mononitrate ER (IMDUR) 30 mg 24 hr tablet Take 30 mg by mouth once daily. empagliflozin (JARDIANCE) 10 mg tablet Take 10 mg by mouth daily with breakfast. metFORMIN (GLUCOPHAGE) 1,000 mg tablet Take 1,000 mg by mouth two times a day with meals. olmesartan-hydroCHLOROthiazide (BENICAR HCT) 40-25 mg per tablet Take 1 tablet by mouth once daily. semaglutide (OZEMPIC) 0.25 mg or 0.5 mg(2 mg/1.5 mL) pen Inject 0.5 mg subcutaneously one time a week. ezetimibe (ZETIA) 10 mg tablet Take 10 mg by mouth once daily. REVIEW OF SYSTEMS: POSITIVES IN BOLD GENERAL: fever, chills, and change in weight HEENT: headaches, hearing loss, difficulty swallowing, visual changes, nose bleeds SKIN: rashes, lesions, and ulcers RESPIRATORY: SEE HPI CARDIOVASCULAR: See HPI GASTROINTESTINAL: abdominal pain, nausea, vomiting, difficulty or painful swallowing, and melanoticstools GENITOURINARY: dysuria, frequency, and nocturia MUSCULOSKELETAL: joint pain, joint swelling, muscle pain or myalgias, and pain with walking NEUROLOGIC: numbness, tingling, and sensation of pins and needles HEMATOLOGY: bruising easily, prolonged bleeding, anemia, and cancer ENDOCRINE: cold or heat intolerance, polyuria, polydipsia, goiter, diabetes, and thyroid disease PSYCH: sleep disturbance, mood disorders, and recent psychosocial stressors PHYSICAL EXAMINATION: BP 118/80 Pulse 86 Resp 14 Ht 5' 8 (1.73m) Wt 226 lb (102.5kg) SpO2 95% BMI 34.37 kg/(m^2). CARDIOVASCULAR MEDICINE TESTING: IMPRESSION: Mr. Hong is a 68 year old male . PLAN AND RECOMMENDATIONS: I personally interviewed, confirmed and edited the above information as obtained by others. CONTACT INFORMATION: Rosalia Trinidad M.D. Staff Cardiology Teacher, Interventional Cardiology [facility] Department of Cardiovascular Medicine Heart and Vascular [facility] Desk [facility] [address] [place] [address] Office - [phone] extension [phone] Office Appointments: [phone] -[phone] extension [phone] documented in this encounterThe [facility]12[facility] Miscellaneous Notes* Telephone Encounter - Natividad Hudson RN - 10/08/2023 12:32 PM EST Schedule surgery: CABG x 3 (2.5) 10/27-Cards, testing, [facility], jairo Batista 10/28-OHS Please mail to patient. Patient accepted surgery on 10/28. Cardiology, testing, [facility] and meet with Dr. Batista on 10/27/23. Patient instructed to stop his Plavix and OTC products on 10/23 and verbalized understanding. He will continue ASA 81. Natividad Hudson RN Cardiac Surgery PreOp Checklist Patient Name: Roland Hong OR Surgery Date: 10/28/23 [facility] Appt. Date: 10/27/23 Primary Care Provider: No primary care provider on file. Definition Comments Diabetes/Insulin Pump A1-c and Endo consult (need for pump pt) ordered Hypothyroid/thyroid nodules TSH/US of thyroid if new nodule n/a Stroke (CVA) Neurology consult n/a Dysphagia, stricture w/no recent dilation, Davey's Esophagus GI consult n/a Von Willebrand/thrombocytopenia/ Blood... Hematology consult n/a Abnormal labs from outside Place any necessary consults n/a Cardiac Cath Correct birthday/include all images/moving if outside cath OSH 07/02/23 Redo OHS/Robotic surgery/radiation to chest CT or CTA/if outside CT will need in-house CXR, CardiacMRI n/a Mechanical valve Admit for Heparin/Lovenox bridge n/a Female <50 y/o HCG n/a Heparin allergy hx of HIT Vascular Medicine consult n/a Nickel/Metal allergy Dermatology consult n/a Breast implants/Robotic candidates Plastic Surgery consult n/a Urinary strictures Urology consult/Urology consult to OR n/a All stimulators/spinal stimulator Type of stimulator n/a PPM/AICD Device check n/a Valve/TAVR/TEVAR/Myectomy/ascending aorta Dental clearance/Dental Consult at [facility] n/a CABG surgery with previous CABG/varicose vein/vein stripping Leg vein mapping OSH 08/24/23 LMT disease > 30% or Carotid Bruits Carotid ultrasound OSH 08/24/23 Descending Aneurysm/TEVAR/TAA Pre-admit/hydration/spinal drain to be placed: IR/OR/Not Needed n/a Dialysis patient IHD day prior to OHS n/a CABG with no ECHO results Discussion w/surgeon results for dental clearance: preop/postop n/a Advanced Directives Instructions given to patient Not discussed FMLA Forward to AA n/a Test/Consult not needed Communicate in Epic or Access n/a Record of decreased PFTs, known lung disease Any pulmonary consult n/a Pulmonary embolectomy Needs US/Duplex BLE, VQ scan RHC, possible LHC, Pulmonary and/or Vascular consult n/a Abnormal CT All>1cm if further workup/consult needed n/a [employer] Notification of packet and general knowledge given to pt n/a * Telephone Encounter - Natividad Hudson RN - 10/06/2023 5:39 AM EST Chart reviewed October 06, 2023. File given to Dr. Batista for his review/plan of care. Roland Hong [id number] 68 year old Diagnosis: CAD Secondary Dx: HTN, HLD, DM Previous Surgeries: S/P PCI (VERONA x2 to RCA, RPLB) Symptoms: SOB, CP EF%: 41 Thinners: ASA 81 Plavix Smoking status: unknown Natividad Hudson RN * Telephone Encounter - Gali Joiner - 10/05/2023 2:14 PM EST LOCAL PATIENT 10/02/23 - pt referred by Dr. Felix to Dr. Batista. Recvd recs, films & ins. documented in this encounterThe [facility] Miscellaneous Notes* Telephone Encounter - Yuko Pfeiffer - 10/05/2023 3:24 PM EST IN documented in this encounterThe [facility]11-07-2023 NotePatient ID: Roland Hong is a 68 y.o. male who presents for follow-up after completing pre-op studies for possible CABG. HPI Roland Hong is a 68 y.o. male with a history of severe CAD, who we initially saw in the office 07/28/23 as a new patient evaluation for CABG risk assessment. During that time, we felt that he was a good candidate for surgery and placed orders for CT chest, carotid duplex, and extremity vein mapping. After his subsequent follow up we ordered viability testing which was completed. He is here today to discuss results and the possibility of surgical planning. Patient does report similar chest pain with exertion sometimes resolved with tylenol, in addition to some shortness of breath unchanged from prior. He is still active and capable of all ADLs. REVIEW OF SYMPTOMS: Constitutional: Negative for activity change, appetite change, chills, diaphoresis, fatigue, fever and unexpected weight change. Eyes: Negative for visual disturbance. Respiratory: Negative for cough, chest tightness and shortness of breath. Cardiovascular: As noted in HPI Neurological: Negative for dizziness, weakness and light-headedness. CT Chest W/O Contrast 08/24/23 IMPRESSION: *Study performed for preoperative planning purposes. *Heavy coronary artery calcifications and/or stents. *Normal appearance of the thoracic aorta. *Small bilateral pleural effusions. Carotid Artery Duplex 08/24/23 IMPRESSION: Notes: Indication: Atherosclerosis of [place] coronary artery of [place] heart I25.10 - Dizziness - Giddiness - Pre Op Right: Heterogeneous, irregular plaque with no significant ICA spectral Doppler or color flow disturbances: ICA 73/25 cm/sec; consistent with 1-49% diameter reduction. Antegrade vertebral artery flow. Left: Heterogeneous, irregular plaque with no significant ICA spectral Doppler or color flow disturbances: ICA 68/26 cm/sec; consistent with 1-49% diameter reduction. Antegrade vertebral artery flow. Notes: Indication: Atherosclerosis of [place] coronary artery of [place] heart I25.10 - Dizziness - Giddiness - Pre Op Right: Heterogeneous, irregular plaque with no significant ICA spectral Doppler or color flow disturbances: ICA 73/25 cm/sec; consistent with 1-49% diameter reduction. Antegrade vertebral artery flow. Left: Heterogeneous, irregular plaque with no significant ICA spectral Doppler or color flow disturbances: ICA 68/26 cm/sec; consistent with 1-49% diameter reduction. Antegrade vertebral artery flow. Conclusions: Antegrade flow of bilateral vertebral arteries. Normal both internal carotid arteries. BLE Vein Mapping 08/24/23 IMPRESSION: Notes: Indication: Atherosclerosis of [place] Coronary Artery of [place] Heart - Coronary Heart Disease - Dizziness - Giddiness - Pre Op Bilateral: Right: Great saphenous vein appeared less than 0.20 cm upper thigh, mid calf and distal calf. Great saphenous vein compressed and presented with no wall thickenesses. Small saphenous vein appeared greater than or equal to 0.20 cm of proximal and mid calf. Superficial small saphenous presented with wall thickening at proximal and mid calf. Left: Great saphenous vein appeared greater than or equal to 0.20 cm of upper thigh and proximal through mid calf. Small saphenous vein appeared greater than or equal to 0.20 cm of entire calf. Superficial BUE Vein Mapping 08/24/23 IMPRESSION: Notes: Indication: Atherosclerosis of [place] Coronary Artery of [place] Heart - Coronary Heart Disease - Dizziness - Giddiness - Pre Op Right: Proximal brachial artery diameter 0.65 cm triphasic spectral Doppler flow with no plaque. Radial artery proximal diameter 0.42 cm; multiphasic spectral Doppler flow with no plaque. Radial artery mid diameter 0.38 cm; multiphasic spectral Doppler flow with no plaque. Radial artery distal diameter 0.41cm; multiphasic spectral Doppler flow with no plaque. Radial and ulnar bifurcate proximal upper arm. Left: Proximal brachial artery diameter 0.59 cm triphasic spectral Doppler flow with no plaque. Radial artery proximal diameter 0.30 cm; multiphasic spectral Doppler flow with no plaque. Radial artery mid diameter 0.33 cm; multiphasic spectral Doppler flow with no plaque. Radial artery distal diameter 0.38 cm; multiphasic spectral Doppler flow with no plaque. Radial and ulnar bifurcate proximal upper arm. Notes: Indication: Atherosclerosis of [place] Coronary Artery of [place] Heart - Coronary Heart Disease - Dizziness - Giddiness - Pre Op Right: Proximal brachial artery diameter 0.65 cm triphasic spectral Doppler flow with no plaque. Radial artery proximal diameter 0.42 cm; multiphasic spectral Doppler flow with no plaque. Radial artery mid diameter 0.38 cm; multiphasic spectral Doppler flow with no plaque. Radial artery distal diameter 0.41cm; multiphasic spectral Doppler flow with no plaque. Radial and ulnar bifurcate proximal upper arm. Left: Proximal brachial artery (more content not included)...[facility] NoteSubjective Patient ID: Roland Hong is a 68 y.o. male who presents for follow-up after completing pre-op studies for possible CABG. HPI Roland Hong is a 68 y.o. male with a history of severe CAD, who we initially saw in the office 07/28/23 as a new patient evaluation for CABG risk assessment. During that time, we felt that he was a good candidate for surgery and placed orders for CT chest, carotid duplex, and extremity vein mapping. He is back in the office today to discuss the results of testing and further recommendations. Review of Systems Constitutional: Negative for activity change, appetite change, chills, diaphoresis, fatigue, fever and unexpected weight change. Eyes: Negative for visual disturbance. Respiratory: Negative for cough, chest tightness and shortness of breath. Cardiovascular: Negative for chest pain, palpitations and leg swelling. Neurological: Negative for dizziness, weakness and light-headedness. Objective Visit Vitals BP 126/78 (BP Location: Left arm, Patient Position: Sitting, BP Cuff Size: Large adult) Pulse 78 Temp 36.3 ???C (97.3 ???F) (Temporal) CT Chest W/O Contrast 08/24/23 IMPRESSION: *Study performed for preoperative planning purposes. *Heavy coronary artery calcifications and/or stents. *Normal appearance of the thoracic aorta. *Small bilateral pleural effusions. Carotid Artery Duplex 08/24/23 IMPRESSION: Notes: Indication: Atherosclerosis of [place] coronary artery of [place] heart I25.10 - Dizziness - Giddiness - Pre Op Right: Heterogeneous, irregular plaque with no significant ICA spectral Doppler or color flow disturbances: ICA 73/25 cm/sec; consistent with 1-49% diameter reduction. Antegrade vertebral artery flow. Left: Heterogeneous, irregular plaque with no significant ICA spectral Doppler or color flow disturbances: ICA 68/26 cm/sec; consistent with 1-49% diameter reduction. Antegrade vertebral artery flow. Notes: Indication: Atherosclerosis of [place] coronary artery of [place] heart I25.10 - Dizziness - Giddiness - Pre Op Right: Heterogeneous, irregular plaque with no significant ICA spectral Doppler or color flow disturbances: ICA 73/25 cm/sec; consistent with 1-49% diameter reduction. Antegrade vertebral artery flow. Left: Heterogeneous, irregular plaque with no significant ICA spectral Doppler or color flow disturbances: ICA 68/26 cm/sec; consistent with 1-49% diameter reduction. Antegrade vertebral artery flow. Conclusions: Antegrade flow of bilateral vertebral arteries. Normal both internal carotid arteries. BLE Vein Mapping 08/24/23 IMPRESSION: Notes: Indication: Atherosclerosis of [place] Coronary Artery of [place] Heart - Coronary Heart Disease - Dizziness - Giddiness - Pre Op Bilateral: Right: Great saphenous vein appeared less than 0.20 cm upper thigh, mid calf and distal calf. Great saphenous vein compressed and presented with no wall thickenesses. Small saphenous vein appeared greater than or equal to 0.20 cm of proximal and mid calf. Superficial small saphenous presented with wall thickening at proximal and mid calf. Left: Great saphenous vein appeared greater than or equal to 0.20 cm of upper thigh and proximal through mid calf. Small saphenous vein appeared greater than or equal to 0.20 cm of entire calf. Superficial BUE Vein Mapping 08/24/23 IMPRESSION: Notes: Indication: Atherosclerosis of [place] Coronary Artery of [place] Heart - Coronary Heart Disease - Dizziness - Giddiness - Pre Op Right: Proximal brachial artery diameter 0.65 cm triphasic spectral Doppler flow with no plaque. Radial artery proximal diameter 0.42 cm; multiphasic spectral Doppler flow with no plaque. Radial artery mid diameter 0.38 cm; multiphasic spectral Doppler flow with no plaque. Radial artery distal diameter 0.41cm; multiphasic spectral Doppler flow with no plaque. Radial and ulnar bifurcate proximal upper arm. Left: Proximal brachial artery diameter 0.59 cm triphasic spectral Doppler flow with no plaque. Radial artery proximal diameter 0.30 cm; multiphasic spectral Doppler flow with no plaque. Radial artery mid diameter 0.33 cm; multiphasic spectral Doppler flow with no plaque. Radial artery distal diameter 0.38 cm; multiphasic spectral Doppler flow with no plaque. Radial and ulnar bifurcate proximal upper arm. Notes: Indication: Atherosclerosis of [place] Coronary Artery of [place] Heart - Coronary Heart Disease - Dizziness - Giddiness - Pre Op Right: Proximal brachial artery diameter 0.65 cm triphasic spectral Doppler flow with no plaque. Radial artery proximal diameter 0.42 cm; multiphasic spectral Doppler flow with no plaque. Radial artery mid diameter 0.38 cm; multiphasic spectral Doppler flow with no plaque. Radial artery distal diameter 0.41cm; multiphasic spectral Doppler flow with no plaque. Radial and ulnar bifurcate proximal upper arm. Left: Proximal brachial artery diameter 0.59 cm triphasic spectral Doppler (more content not included)...[facility] NoteCT CHEST WITHOUT CONTRAST HISTORY: Pre-bypass open heart surgery evaluation, multiple coronary artery stents COMPARISON: None. TECHNIQUE: Axial images through the chest acquired without contrast. Coronal and sagittal reformatted images were obtained and reviewed. FINDINGS: No noncalcified lung nodules or masses. Sequela of old granulomatous disease. The central airways are patent. Visualized structures in the lower neck are unremarkable. Visualized chest wall structures are unremarkable. Visualized structures in the upper abdomen are unremarkable. Small bilateral pleural effusions. No pericardial effusion. The thoracic aorta is unremarkable. Heavy coronary artery calcifications and/or coronary artery stents. The central pulmonary arteries are unremarkable. No enlarged thoracic lymph nodes. No acute osseous abnormalities or aggressive osseous lesions. IMPRESSION: *Study performed for preoperative planning purposes. *Heavy coronary artery calcifications and/or stents. *Normal appearance of the thoracic aorta. *Small bilateral pleural effusions. All CT scans at this facility use dose modulation, iterative reconstruction, and/or weight based dosing when appropriate to reduce radiation dose to as low as reasonably achievable. Electronically signed: Calvin Candelario.[facility] 07-28-2023 NoteSubjective Patient ID: Roland Hong is a 68 y.o. male PMHx DM, HTN, HLD, NE in 2005 s/p stent placement, who presents for new patient evaluation for CABG. Patient reports chest pain with exertion, improved with rest, with mild associated shortness of breath, of several months duration. Denies palpitations, nausea, or leg swelling. States he has been taking his aspirin and plavix as perscribed. He has been seen by Cardiology. Stress test demonstrated slightly reversible perfusion involving anterior, septal, and inferior lateral sainz, and fixed, absent perfusion in the inferior wall and apex. He had a cardiac catheterization in June 2023 that revealed 100% occluded mid LAD, 99% stenosis of first diagnoal branch of LAD, 99% ISR of mid RCA stent and 100% ISR of RPLB stent. Patient is a nonsmoker, and reports he is active and able to walk up a flight of stairs without shortness of breath. HPI Review of Systems Constitutional: Negative for chills and fever. HENT: Negative for congestion and rhinorrhea. Eyes: Negative for discharge and itching. Respiratory: Positive for shortness of breath. Cardiovascular: Positive for chest pain. Negative for palpitations and leg swelling. Gastrointestinal: Negative for abdominal pain and nausea. Endocrine: Negative for cold intolerance and heat intolerance. Genitourinary: Negative for dysuria and hematuria. Musculoskeletal: Negative for arthralgias and back pain. Skin: Negative for color change and pallor. Allergic/Immunologic: Negative for environmental allergies and food allergies. Neurological: Negative for dizziness and facial asymmetry. Hematological: Negative for adenopathy. Does not bruise/bleed easily. Psychiatric/Behavioral: Negative for agitation and behavioral problems. Objective Visit Vitals BP 135/88 (BP Location: Left arm, Patient Position: Sitting, BP Cuff Size: Large adult) Pulse 73 Temp 37.1 ???C (98.7 ???F) (Temporal) Physical Exam Constitutional: Appearance: Normal appearance. HENT: Head: Normocephalic and atraumatic. Right Ear: External ear normal. Left Ear: External ear normal. Nose: Nose normal. Mouth/Throat: Pharynx: Oropharynx is clear. Eyes: Extraocular Movements: Extraocular movements intact. Conjunctiva/sclera: Conjunctivae normal. Cardiovascular: Rate and Rhythm: Normal rate. Pulmonary: Effort: Pulmonary effort is normal. Abdominal: General: There is no distension. Palpations: Abdomen is soft. Musculoskeletal: General: Normal range of motion. Cervical back: Normal range of motion. Skin: General: Skin is warm and dry. Neurological: Mental Status: He is alert and oriented to person, place, and time. Psychiatric: Mood and Affect: Mood normal. TTE 06/12/2023: 1 1 [facility] Heart [facility] [address] Examination: Echocardiogram (Complete), Lumason Contrast Image Quality: The patient was unable to roll left lateral Patient Consent: Procedure explained to patient Conclusions Left Ventricle: The left ventricle appears normal in size. Global left ventricular systolic function is at lower limits of normal. The EF is 50 % visually. Left ventricular wall thickness is normal. Regional wall motion abnormalities (see diagram). Right Ventricle: The right ventricle is normal in size. Normal right ventricular systolic function. Unable to assess right sided pressures due to lack of measurable tricuspid regurgitation. Left Atrium: The left atrium is normal in size. Overall Conclusions: Due to suboptimal imaging, Lumason contrast was administered for better delineation of the left ventricular apex Technically difficult due to patient supine Measurements Left Ventricle Label Value Normal Value LVOT PGmax 4 mmHg LVEF visual 50 % Right Ventricle Label Value Normal Value RVDd, 2D 2.62 cm (1.9cm - 3.8cm) TAPSE 1.75 cm Right Atrium Label Value Normal Value RA Area 9.6 cm?? Aortic Valve Label Value Normal Value AV DVI 0.75 Mitral Valve Label Value Normal Value MV E Vmax 0.53 m/s MV A Vmax 1.16 m/s MV E/A 0.46 MV E/E' lateral 5 MV E' lateral 0.11 m/s Valvular Assessment LVOT 0.7 - 1.1 m/sec Aortic Valve 1.0 - 1.7 m/sec Mitral Valve 0.6 - 1.3 m/sec Tricuspid Valve 0.3 - 0.7 m/sec Pulmonic Valve 0.6 - 0.9 m/sec Regurgitation No No No Max Velocity 1.03 m/sec 1.37 m/s 0.53 m/sec 0.90 m/s Max Gradient 8.00 mmHg 3.00 mmHg Findings Left Ventricle: The left ventricle appears normal in size. Global left ventricular systolic function is at lower limits of normal. The EF is 50 % visually. Left ventricular wall thickness is normal. Regional wall motion abnormalities (see diagram). The mid inferoseptal, apical anterior, apical septal, apical inferior and apex left ventricular wall segments are hypokinetic. All remaining scored left ventricular wall segments are with no wall motion abnormalities. Right Ventricle: The right ventricle is normal in size. Normal right ventricula (more content not included)...[facility]08-10-20[facility] NotePatient: Roland Hong Procedure Information Date/Time: 07/02/23 0830 Procedure: Coronary angiography (Left) Location: [facility] / [facility] (Cath) Providers: Yessi Burgos MD Clinical information reviewed: Tobacco Allergies Meds Med Hx Surg Hx Fam Hx Soc Hx Physical Exam Airway Mallampati: III Cardiovascular Rhythm: regular Rate: normal Dental Pulmonary Breath sounds clear to auscultation Abdominal Abdomen: soft Anesthesia Plan ASA 3 other (Conscious sedation ) intravenous induction Anesthetic plan and risks discussed with patient. Use of blood products discussed with patient who consented to blood products. Plan discussed with attending. [facility]Un[facility] Note Chief Complaint: new patient to establish care HPI: Roland Hong is a 68 y.o. male male with a past medical history including HTN, HLD, CAD with NE s/p PCI who is referred to Cardiology clinic for evaluation of chest pain and abnormal stress. Patient reports symptoms of chest pain with exertion over the past several months. He reports associated shortness of breath.. He denies any lower extremity edema, orthopnea, or PND. No near syncope or syncope. No additional complaint at this time. NE with PCI was in 2005. Stress test demonstrated slightly reversible perfusion involving the anterior, septal, and inferior lateral sainz. There was fixed, absent perfusion in the inferior wall and apex. Cardiology ROS: GENERAL: Denies fever, chills, night sweats, weight loss. HEENT: Denies changes in vision, photophobia, changes in hearing, epistaxis, oral bleeding. CARDIOVASCULAR: Endorses chest pain, exertional dyspnea. Denies orthopnea/PND, lower extremity edema, palpitations, lightheadedness/dizziness. RESPIRATORY: Denies SOB, coughing, wheezing GI: Denies abdominal pain, nausea/vomiting, heartburn, melena/hematochezia. RENAL: Denies dysuria, hematuria, flank pain. MSK: Denies muscle weakness/pain, arthralgias/joint pain. NEUROLOGIC: Denies LOC, weakness, numbness, headaches. SKIN: Denies abnormal rashes or bleeding. PSYCH: Denies significant anxiety, depression, sleep disturbances. Past Medical History He has a past medical history of CAD (coronary artery disease), Diabetes (CMS/HCC), Gout, Hyperlipidemia, and Hypertension. Surgical History He has a past surgical history that includes Hernia repair; Hemorrhoid surgery; Appendectomy; Eye surgery; Cardiac catheterization; and Coronary stent placement. Social History He reports that he has never smoked. He has never used smokeless tobacco. He reports current alcohol use. He reports that he does not use drugs. Family History Family History Problem Relation Name Age of Onset Stroke Mother Prostate cancer Father Medications Current Outpatient Medications on File Prior to Visit Medication Sig Dispense Refill allopurinol (Zyloprim) 100 mg tablet Take 100 mg by mouth in the morning. ascorbic acid (Vitamin C) 1,000 mg tablet Take 1,000 mg by mouth in the morning. aspirin 81 mg EC tablet Take 81 mg by mouth in the morning. calcium polycarbophiL (Fibercon) 625 mg tablet Take 2 tablets by mouth 1 (one) time each day. carvedilol (Coreg) 25 mg tablet Take 1 tablet by mouth every 12 (twelve) hours. cholecalciferol, vitamin D3, 50 mcg (2,000 unit) capsule Take 2,000 Units by mouth in the morning. clopidogrel (Plavix) 75 mg tablet Take 1 tablet by mouth 1 (one) time each day. empagliflozin (Jardiance) 10 mg Take 1 tablet by mouth 1 (one) time each day. ezetimibe (Zetia) 10 mg tablet Take 1 tablet by mouth 1 (one) time each day. gemfibrozil (Lopid) 600 mg tablet Take 1 tablet by mouth in the morning and at bedtime. metFORMIN (Glucophage) 1,000 mg tablet Take 1 tablet by mouth in the morning and at bedtime. olmesartan-hydrochlorothiazide (BENIcar HCT) 40-25 mg tablet Take 1 tablet by mouth 1 (one) time each day. pioglitazone (Actos) 30 mg tablet Take 1 tablet by mouth 1 (one) time each day. semaglutide (Ozempic) 0.25 mg or 0.5 mg(2 mg/1.5 mL) pen injector Inject 0.25 mg under the skin 1 (one) time per week. No current facility-administered medications on file prior to visit. Allergies Patient has no known allergies. Physical Exam VITAL SIGNS: BP (!) 159/93 (BP Location: Left arm, Patient Position: Sitting) Pulse 61 Ht 1.727 m (5' 8 ) Wt 111 kg (245 lb) SpO2 98% BMI 37.25 kg/m??? Constitutional: Well developed, Well nourished, No acute distress, Non-toxic appearance. HENT: Normocephalic, Atraumatic, Bilateral external ears have normal appearance, Nose appears normal, nares are patent. Eyes: PERRLA, EOMI, Conjunctiva normal, No discharge. Neck: Normal range of motion, No tenderness, Supple, No stridor. No cervical lymphadenopathy noted. Cardiovascular: Normal heart rate, Normal rhythm, No murmurs, No rubs, No gallops. Thorax & Lungs: Normal breath sounds, No respiratory distress, No wheezing, No chest tenderness to palpation. Abdomen: Bowel sounds normal, Soft, Nontender, No masses, No pulsatile masses. Skin: Warm, Dry, No erythema, No rash. Back: No tenderness, No CVA tenderness. Extremities: Intact distal pulses, No edema, No tenderness, No cyanosis, No clubbing. Musculoskeletal: Grossly normal strength in extremities Neurologic: Alert & oriented x 3, no gross focal neurological deficits Psychiatric: Affect normal, Judgment normal, Mood normal. Impression: -CAD s/p PCI, symptoms concerning for angina -HTN -HLD -Abnormal stress test Plan: -Given symptoms and abnormal stress test, recommend proceeding with coronary angiography with possible revascularization -Proc (more content not included)...[facility] 06-12-2023 NoteNew patient here to establish care. Ref from Dr. Crane for abnormal stress test. He does have hx of CAD w/ PCI in 2005 at [facility]. Stress test was ordered for intermittent chest pain, radiating to his neck and back. Does get SOB w/ exertion and stress he says. Review of Systems Cardiovascular: Positive for chest pain, dyspnea on exertion and leg swelling (end of day). Musculoskeletal: Positive for back pain and neck pain. All other systems reviewed and are negative.[facility] Evaluation note* Diagnosis Pre-operative cardiovascular examination- Primary Coronary artery disease of [place] artery of [place] heart with stable angina pectoris (HCC) 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) Coronary artery disease of [place] artery of [place] heart with stable angina pectoris (HCC) Pre-operative cardiovascular examination 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) documented in this encounter [facility]* Diagnosis Coronary artery disease of [place] artery of [place] heart with stable angina pectoris (HCC)- Primary Primary hypertension Unspecified essential hypertension Controlled type 2 diabetes mellitus without complication, without long-term current use of insulin (HCC) Obesity (BMI 30.0-34.9) Obesity, unspecified Coronary stent restenosis, subsequent encounter Coronary artery disease of [place] artery of [place] heart with stable angina pectoris (HCC) Pre-operative cardiovascular examination 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) documented in this encounter [facility] CenterEvaluation note* Diagnosis Encounter for preoperative anesthesiology assessment for cardiac surgery- Primary [facility] this encounter [facility] Diagnosis Pre-op exam- Primary Preoperative examination, unspecified Preop testing Preoperative examination, unspecified documented in this encounter [facility] note* Diagnosis Coronary artery disease of [place] artery of [place] heart with stable angina pectoris (HCC) Pre-operative cardiovascular examination 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) documented in this encounter [facility] note* Diagnosis S/P CABG x 3- Primary Postsurgical aortocoronary bypass status Controlled type 2 diabetes mellitus without complication, without long-term current use of insulin (HCC) Primary hypertension Unspecified essential hypertension documented in this encounter [facility] note* Diagnosis S/P CABG x 3- Primary Postsurgical aortocoronary bypass status Obesity (BMI 30.0-34.9) Obesity, unspecified Hypertension goal BP (blood pressure) < 140/80 Unspecified essential hypertension Controlled type 2 diabetes mellitus without complication, without long-term current use of insulin (HCC) Coronary stent restenosis, subsequent encounter documented in this encounter [facility] CenterInstructionsNot on filedocumented in this encounterProPremier Health [facility] SystemInstructionsNot on filedocumented in this encounterSCCI Hospital [facility] SystemInstructionsNot on filedocumented in this encounterSCCI [facility] System InstructionsNot on filedocumented in this encounterFirelands Regional Medical Center South CampusReason for referral (narrative)* Outpatient Procedure (Routine) - Pending Review Specialty Diagnoses / Procedures Referred By Carl fowler Referred To [facility] Diagnoses Coronary artery disease of [place] artery of [place] heart with stable angina pectoris (HCC) Pre-operative cardiovascular examination 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) Procedures ECHO ECHO TTHRC R-T 2D W/WOM-MODE COMPL SPEC&COLR D Coco Batista MD [address] [place] [address] [employer] [place] [address] [address] [place] [address] Referral ID Status Reason Start Date Expiration Date Visits Requested Visits Authorized [id number] Pending Review Auto-Generat ed Referral 3 10/07/2024 1 1 * Outpatient Procedure (Routine) - Pending Review Specialty Diagnoses / Procedures Referred By Contac t Referred To [facility] Diagnoses Coronary artery disease of [place] artery of [place] heart with stable angina pectoris (HCC) Pre-operative cardiovascular examination 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) Procedures ECG COMPLETE ECG ROUTINE ECG W/LEAST 12 LDS W/I&R Coco Batista MD [address] [place] [address] [place] [address] Referral ID Status Reason Start Date Expiration Date Visits Requested Visits Authorized [id number] Pending Review Auto-Generat ed Referral 3 10/07/2024 1 1 * Consult, Test, Treat (Routine) - Authorized Specialty Diagnoses / Procedures [facility] To Contact Cardiac Surg Diagnoses Coronary artery disease of [place] artery of [place] heart with stable angina pectoris (HCC) Pre-operative cardiovascular examination 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) Procedures CARDIOTHORACIC PREOP EVALUATION OFFICE/OUTPATIENT [facility] 60-74 MINUTES Coco Batista MD [address] [place] [address] Referral ID Status Reason Start Date Expiration Date Visits Requested Visits Authorized [id number] Authorized PCP Requested Referral 3 10/07/2024 1 1 * Consult, Test, Treat (Routine) - Authorized Specialty Diagnoses / Procedures [facility] Referred To Contact Cardiology Diagnoses Coronary artery disease of [place] artery of [place] heart with stable angina pectoris (HCC) Pre-operative cardiovascular examination 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) Procedures CONSULT TO CARDIOLOGY OFFICE/OUTPATIENT [facility] MDM 60-74 MINUTES Coco Batista MD [address] [place] [address] Referral ID Status Reason Start Date Expiration Date Visits Requested Visits Authorized [id number] Authorized PCP Requested Referral 3 10/07/2024 1 1 [facility] CenterReason for referral (narrative)* Outpatient Procedure (Routine) - Pending Review Specialty Diagnoses / Procedures Referred By Contac t Referred To Contact [facility] Diagnoses S/P CABG x 3 Controlled type 2 diabetes mellitus without complication, without long-term current use of insulin (HCC) Primary hypertension Procedures ECG COMPLETE ECG ROUTINE ECG W/LEAST 12 LDS W/I&R Rosalia Trinidad MD [address] [place] [address] [facility] [address] [address] Referral ID Status Reason Start Date Expiration Date Visits Requested Visits Authorized [id number] Pending Review Auto-Generat ed Referral 05/12/2024 05/12/2025 1 1 [facility] Summary Purpose Family History No Family History Records FoundNo Family History Records FoundNo Family History Records FoundNo Family History Records FoundNo Family History Records Found Advance Directives No Advanced Directives Records FoundDocuments on File Type Date Recorded Patient [employer] anation Advance Directive(s) 10/30/2023 8:03 AM Advance Directive(s) 10/27/2023 4:44 PM Documents on File Type Date Recorded Patient [employer] anation Advance Directive(s) 10/30/2023 8:03 AM Advance Directive(s) 10/27/2023 4:44 PM Reason for Referral Specialty Diagnoses / Procedures Referred By Contac t Referred To Contact Procedures CARDIOVASCULAR MEDICINE OP FOLLOW UP APPT ORDER Rosalia Trinidad MD [address] [place] [address] Referral ID Status Reason Start Date Expiration Date Visits Requested Visits Authorized [id number] Ref Not Required PCP Requested Referral 10/27/2023 10/26/2024 1 1 Specialty Diagnoses / Procedures Referred By Contac t Referred To Contact HEART [facility] VASCULAR [facility] Procedures CARDIOVASCULAR MEDICINE OP FOLLOW UP APPT ORDER Rosalia Trinidad MD [address] [place] [address] [facility] [place] [address] [facility] [place] [address] Referral ID Status Reason Start Date Expiration Date Visits Requested Visits Authorized [id number] Ref Not Required PCP Requested Referral 06/15/2024 06/15/2025 1 1 Additional Source Comments (unrecognized sect ion and content) No Status Records FoundNo Status Records FoundNo Status Records FoundNo Status Records FoundNo Status Records Found INFORMATION SOURCE (unrecogn ized section and content) DATE CREATED AUTHOR 01/21/2022 [facility] DATE CREATED AUTHOR AUTHOR'S ORGANIZ ATION 10/04/[address] [facility] DATE CREATED AUTHOR AUTHOR'S ORGANIZ ATION 08/19/2024 [facility] DATE CREATED AUTHOR AUTHOR'S ORGANIZ ATION 08/25/2024 [facility] DATE CREATED AUTHOR AUTHOR'S ORGANIZ ATION 09/08/2024 [facility] Source Comments (unrecognize d section and content) In the event this informatio n is protected by the Federal Confidentiality of Alcohol and Drug Abuse Patient Records regulations: The Federal rules restrict any use of the information to criminally investigate or prosecute any alcohol or drug abuse patient.[facility] CenterIn the event this information is protected by the Federal Confidentiality of Alcohol and Drug Abuse Patient Records regulations: The Federal rules restrict any use of the information to criminally investigate or prosecute any alcohol or drug abuse patient.[facility] CenterIn the event this information is protected by the Federal Confidentiality of Alcohol and Drug Abuse Patient Records regulations: The Federal rules restrict any use of the information to criminally investigate or prosecute any alcohol or drug abuse patient.[facility] CenterIn the event this information is protected by the Federal Confidentiality of Alcohol and Drug Abuse Patient Records regulations: The Federal rules restrict any use of the information to criminally investigate or prosecute any alcohol or drug abuse patient.[facility] CenterIn the event this information is protected by the Federal Confidentiality of Alcohol and Drug Abuse Patient Records regulations: The Federal rules restrict any use of the information to criminally investigate or prosecute any alcohol or drug abuse patient.[facility] CenterIn the event this information is protected by the Federal Confidentiality of Alcohol and Drug Abuse Patient Records regulations: The Federal rules restrict any use of the information to criminally investigate or prosecute any alcohol or drug abuse patient.[facility] CenterIn the event this information is protected by the Federal Confidentiality of Alcohol and Drug Abuse Patient Records regulations: The Federal rules restrict any use of the information to criminally investigate or prosecute any alcohol or drug abuse patient.[facility] CenterIn the event this information is protected by the Federal Confidentiality of Alcohol and Drug Abuse Patient Records regulations: The Federal rules restrict any use of the information to criminally investigate or prosecute any alcohol or drug abuse patient.[facility] CenterIn the event this information is protected by the Federal Confidentiality of Alcohol and Drug Abuse Patient Records regulations: The Federal rules restrict any use of the information to criminally investigate or prosecute any alcohol or drug abuse patient.[facility] CenterIn the event this information is protected by the Federal Confidentiality of Alcohol and Drug Abuse Patient Records regulations: The Federal rules restrict any use of the information to criminally investigate or prosecute any alcohol or drug abuse patient.[facility] CenterIn the event this information is protected by the Federal Confidentiality of Alcohol and Drug Abuse Patient Records regulations: The Federal rules restrict any use of the information to criminally investigate or prosecute any alcohol or drug abuse patient.[facility] CenterIn the event this information is protected by the Federal Confidentiality of Alcohol and Drug Abuse Patient Records regulations: The Federal rules restrict any use of the information to criminally investigate or prosecute any alcohol or drug abuse patient.[facility] CenterIn the event this information is protected by the Federal Confidentiality of Alcohol and Drug Abuse Patient Records regulations: The Federal rules restrict any use of the information to criminally investigate or prosecute any alcohol or drug abuse patient.[facility] CenterIn the event this information is protected by the Federal Confidentiality of Alcohol and Drug Abuse Patient Records regulations: The Federal rules restrict any use of the information to criminally investigate or prosecute any alcohol or drug abuse patient.[facility] Reason for Visit (unrecogniz ed section and content) Reason Comments Insurance Inquiry Reason Comments Referral Information Cardiac Preop Checklist Reason Comments Pre-Op Exam Reason Comments Radio Main J1 Reason Comments Patient Update Reason Comments Follow Up Phone Call RC follow up call a angelina clear. Reason Comments RTW Date Reason Comments Appointment rescheduled Reason Comments Follow Up Reason Comments Medication Question Can pt stop taking h is 81 mg of baby aspirin before his colonoscopy on Wednesday 08/29? Care Teams (unrecognized sec tion and content) Industrial Hygiene Manager Relationship Specialty Start Date End Date Coco Batista MD [address] [place] [address] Surgeon Cardiac Surg 10/05/23 Industrial Hygiene Manager Relationship Specialty Start Date End Date Coco Batista MD [address] [place] [id number] Surgeon Cardiac Surg 10/05/23 Industrial Hygiene Manager Relationship Specialty Start Date End Date Jamey Crane MD [address] [place] [address] PCP - General Family Medicine 10/14/23 Coco Batista MD [address] [place] [id number] Surgeon Cardiac Surg 10/05/23 Rosalia Trinidad MD [address] [place] [address] Cardiology 10/09/23 Rosalia Trinidad MD [address] [place] [address] Primary Staff Physician Cardiology 10/27/23 Industrial Hygiene Manager Relationship Specialty Start Date End Date Jamey Crane MD [address] [place] [address] PCP - General Family Medicine 10/14/23 Coco Batista MD [address] [place], [place] [id number] Surgeon Cardiac Surg 10/05/23 Rosalia Trinidad MD [address] [place] [id number] Cardiology 10/09/23 Rosalia Trinidad MD [address] [place] [address] Primary Staff Physician Cardiology 10/27/23 Industrial Hygiene Manager Relationship Specialty Start Date End Date Jamey Crane MD [address] [place] [address] PCP - General Family Medicine 10/14/23 Coco Batista MD [address] [place] [address] Surgeon Cardiac Surg 10/05/23 Rosalia Trinidad MD [address] [place] [address] Cardiology 10/09/23 Rosalia Trinidad MD [address] [place], [place] [id number] Primary Staff Physician Cardiology 10/27/23 Industrial Hygiene Manager Relationship Specialty Start Date End Date Jamey Crane MD [address] [place] [address] PCP - General Family Medicine 10/14/23 Coco Batista MD [address] [place], [place] [id number] Surgeon Cardiac Surg 10/05/23 Rosalia Trinidad MD [address] [place], [place] [id number] Cardiology 10/09/23 Rosalia Trinidad MD [address] [place], [place] [id number] Primary Staff Physician Cardiology 10/27/23 Industrial Hygiene Manager Relationship Specialty Start Date End Date Jamey Crane MD [address] [place] [address] PCP - General Family Medicine 10/14/23 Coco Batsita MD [address] [place], [place] [phone] Surgeon Cardiac Surg 10/05/23 Rosalia Trinidad MD [address] [place], [place] [id number] Cardiology 10/09/23 Rosalia Trinidad MD [address] [place] [address] Primary Staff Physician Cardiology 10/27/23 Industrial Hygiene Manager Relationship Specialty Start Date End Date Jamey Crane MD [address] [place] [phone] PCP - General Family Medicine 10/14/23 Coco Batista MD [address] [place] [address] Surgeon Cardiac Surg 10/05/23 Rosalia Trinidad MD [address] [place] [address] Cardiology 10/09/23 Rosalia Trinidad MD [address] [place] [address] Primary Staff Physician Cardiology 10/27/23 Industrial Hygiene Manager Relationship Specialty Start Date End Date Jamey Crane MD [address] [place] [phone] PCP - General 03/29/16 Industrial Hygiene Manager Relationship Specialty Start Date End Date Jamey Crane MD [address] [place] [address] PCP - General 03/29/16 Industrial Hygiene Manager Relationship Specialty Start Date End Date Jamey Crane MD [address] [place] [address] PCP - General 03/29/16 Industrial Hygiene Manager Relationship Specialty Start Date End Date Jamey Crane MD [address] [place] [address] PCP - General 03/29/16 Industrial Hygiene Manager Relationship Specialty Start Date End Date Jamey Crane MD [address] [place] [address] PCP - General 03/29/16 Industrial Hygiene Manager Relationship Specialty Start Date End Date Jamey Crane MD [address] [place] [address] PCP - General 03/29/16 Industrial Hygiene Manager Relationship Specialty Start Date End Date Jamey Crane MD [address] [place] [phone] PCP - General Family Medicine 10/14/23 Coco Batista MD [address] [place] [address] Surgeon Cardiac Surg 10/05/23 Rosalia Trinidad MD [address] [place] [address] Cardiology 10/09/23 Rosalia Trinidad MD [address] [place] [address] Primary Staff Physician Cardiology 10/27/23 Industrial Hygiene Manager Relationship Specialty Start Date End Date Jamey Crane MD [address] [place] [address] PCP - General 03/29/16 Industrial Hygiene Manager Relationship Specialty Start Date End Date Jamey Crane MD [address] [place] [id number] PCP - General 03/29/16 Industrial Hygiene Manager Relationship Specialty Start Date End Date Jamey Crane MD [address] [place] [phone] PCP - General Family Medicine 10/14/23 Coco Batista MD [address] [place] [address] Surgeon Cardiac Surg 10/05/23 Rosalia Trinidad MD [address] [place] [address] Cardiology 10/09/23 Rosalia Trinidad MD [address] [place] [id number] Primary Staff Physician Cardiology 10/27/23 Industrial Hygiene Manager Relationship Specialty Start Date End Date Jamey Crane MD [address] [place], [place] [phone] PCP - General 03/29/16 Industrial Hygiene Manager Relationship Specialty [place] [address] [place], [place] [phone] PCP - General 03/29/16 Industrial Hygiene Manager Relationship Specialty Start Date End Date Jamey Crane MD [address] [place] [address] PCP - General 03/29/16 Industrial Hygiene Manager Relationship Specialty [place] [address] [place], [place] [phone] PCP - General 03/29/16 Industrial Hygiene Manager Relationship Specialty Start Date End Date Jamey Crane MD [address] [place] [id number] PCP - General 03/29/16 Industrial Hygiene Manager Relationship Specialty Start Date End Date Jamey Crane MD [address] [place] [id number] PCP - General 03/29/16 Industrial Hygiene Manager Relationship Specialty Start Date End Date Jamey Crane MD [address] [place] [id number] PCP - General 03/29/16 Industrial Hygiene Manager Relationship Specialty [place] [address] [place], [place] [id number] PCP - General 03/29/16 Industrial Hygiene Manager Relationship Specialty Start Date End Date Jamey Crane MD [address] [place] [id number] PCP - General 03/29/16 Industrial Hygiene Manager Relationship Specialty Start Date End Date Jamey Crane MD [address] [place] [id number] PCP - General 03/29/16 Industrial Hygiene Manager Relationship Specialty Start Date End Date Jamey Crane MD [address] [place] [id number] PCP - General 03/29/16 Industrial Hygiene Manager Relationship Specialty Start Date End Date Jamey Crane MD [address] [place] [id number] PCP - General 03/29/16 Industrial Hygiene Manager Relationship Specialty Start Date End Date Jamey Crane MD [address] [place] [address] PCP - General 03/29/16 Industrial Hygiene Manager Relationship Specialty Start Date End Date Jamey Crane MD [address] [place] [address] PCP - General 03/29/16 Industrial Hygiene Manager Relationship Specialty Start Date End Date Jamey Crane MD [address] [place] [address] PCP - General Family Medicine 10/14/23 Coco Batista MD [address] [place] [address] Surgeon Cardiac Surg 10/05/23 Rosalia Trinidad MD [address] [place] [address] Cardiology 10/09/23 Rosalia Trinidad MD [address] [place] [address] Primary Staff Physician Cardiology 10/27/23 Industrial Hygiene Manager Relationship Specialty Start Date End Date Jamey Crane MD [address] [place] [address] PCP - General Family Medicine 10/14/23 Coco Batista MD [address] [place] [address] Surgeon Cardiac Surg 10/05/23 Rosalia Trinidad MD [address] [place] [address] Cardiology 10/09/23 Rosalia Trinidad MD [address] [place] [address] Primary Staff Physician Cardiology 10/27/23 Industrial Hygiene Manager Relationship Specialty Start Date End Date Jamey Crane MD [address] [place] [address] PCP - General Family Medicine 10/14/23 Coco Batista MD [address] [place] [address] Surgeon Cardiac Surg 10/05/23 Rosalia Trinidad MD [address] [place] [address] Cardiology 10/09/23 Rosalia Trinidad MD [address] [place] [address] Primary Staff Physician Cardiology 10/27/23 Industrial Hygiene Manager Relationship Specialty Start Date End Date Jamey Crane MD [address] [place] [address] PCP - General Family Medicine 10/14/23 Coco Batista MD [address] [place] [address] Surgeon Cardiac Surg 10/05/23 Rosalia Trinidad MD [address] [place] [address] Cardiology 10/09/23 Rosalia Trinidad MD [address] [place] [address] Primary Staff Physician Cardiology 10/27/23 Industrial Hygiene Manager Relationship Specialty Start Date End Date Jamey Crane MD PCP - General 03/29/16 Industrial Hygiene Manager Relationship Specialty Start Date End Date Jamey Crane MD [facility] [place] [address] PCP - General Family Medicine 08/29/24 FOR RECORDS PERTAINING TO PATIENTS WHO ARE OR HAVE BEEN ENROLLED IN A CHEMICAL DEPENDENCY/SUBSTANCEABUSE PROGRAM, SOME INFORMATION MAY BE OMITTED. This clinical summary was aggregated from multiple sources. Caution should be exercised in using it in the provision of clinical care. This summary normalizes information from multiple sources, and as a consequence, information in this document may materially change the coding, format and clinical context of patient data. In addition, data may be omitted in some cases. CLINICAL DECISIONS SHOULD BE BASED ON THE PRIMARY CLINICAL RECORDS. [facility] [employer] [facility]. provides no warranty or guarantee of the accuracy or completeness of information in this document.
[2024-09-26 11:05] VITALS: BP 113/64; PULSE 67; TEMP 36.2; O2SAT 94
[2024-09-26] MEDS: FERRIC CARBOXYMALTOSE 750 MG in 0.9 % SODIUM CHLORIDE 250 ML 795 MG IV (11:11)
== END 2024-10-13 08:40 | disposition home or self-care (01) ==
LOC: HEMC 07:31
PROVIDERS: PCP Family Medicine; Visit Provider Internal Medicine Hematology & Oncology
DX: D50.9 Iron deficiency anemia, unspecified (principal); K90.9 Intestinal malabsorption, unspecified; D64.9 Anemia, unspecified
CPT/HCPCS: 96365; J1439

== ENCOUNTER 2024-11-01 10:20 | Outpatient (OUT) | payer MEDICARE, OTHER, SELFPAY ==
[2024-11-01 10:54] LABS: Basophils Percent Auto 0.6 % (0.2-2.0); Eosinophils Absolute Auto 0.3 10^3/uL (0.0-0.7); Eosinophils Percent Auto 4.5 % (0.9-7.0); Hematocrit 41.5 % (42.0-54.0); Hemoglobin 13.1 g/dL (14.0-18.0); Immature Granulocytes Abs Auto 0.04 10^3/uL (0.00-0.03); Immature Granulocytes Pct Auto 0.6 % (0.0-0.5); Lymphocytes Percent Auto 15.6 % (20.5-60.0); Mean Corpuscular HGB Conc 31.6 g/dL (29.9-35.2); Mean Corpuscular Hemoglobin 27.8 pg (25.9-34.0); Mean Corpuscular Volume 88.1 fL (80.0-94.0); Mean Platelet Volume 11.1 fL (9.5-13.5); Monocytes Absolute Auto 0.6 10^3/uL (0.3-0.8); Monocytes Percent Auto 9.6 % (1.7-12.0); Neutrophils Absolute Auto 4.3 10^3/uL (1.4-6.5); Neutrophils Percent Auto 69.1 % (43.0-75.0); Platelet Count 146 10^3/uL (150-450); Red Blood Count 4.71 10^6/uL (4.70-6.10); Red Cell Distribution Width 17.2 % (11.0-15.0); White Blood Count 6.2 10^3/uL (4.0-11.0)
[2024-11-01 11:09] LABS: Percent Iron Saturation 25.5 %
== END 2024-11-01 10:21 | disposition home or self-care (01) ==
LOC: LAB 10:23
PROVIDERS: PCP Family Medicine; Visit Provider Internal Medicine Hematology & Oncology
DX: D64.9 Anemia, unspecified (principal); D50.9 Iron deficiency anemia, unspecified; K90.9 Intestinal malabsorption, unspecified
CPT/HCPCS: 36415; 82728; 83540; 83550; 85025

== ENCOUNTER 2024-11-03 07:39 | Outpatient (RCR) | payer MEDICARE, OTHER, SELFPAY | END 2024-11-07 08:04 | disposition home or self-care (01) | LOC: HEMC 07:39 | PROVIDERS: PCP Family Medicine; Visit Provider Internal Medicine Hematology & Oncology | DX: D64.9 Anemia, unspecified (principal); K90.9 Intestinal malabsorption, unspecified; D50.9 Iron deficiency anemia, unspecified; I25.10 Atherosclerotic heart disease of native coronary artery without angina pectoris; Z95.5 Presence of coronary angioplasty implant and graft; K21.9 Gastro-esophageal reflux disease without esophagitis; Z79.82 Long term (current) use of aspirin; Z95.1 Presence of aortocoronary bypass graft | CPT/HCPCS: G0463 ==

== ENCOUNTER 2025-02-01 09:43 | Outpatient (OUT) | payer MEDICARE, OTHER, SELFPAY ==
--- OUTSIDE RECORDS SUMMARY | 2025-02-01 10:02 | XMS_ITS | CCD ---
Author Organization [facility] Care Team Providers Care Senior Statistician Name Role Phone DON, DR CONCEPCION Primary [...] STEPHANIE Referring Unavailable ALGHOTHANI, MOHAMAD Referring Unavailable Kingsley NOLASCO, Coco Quiroga Unavailable Rosalia Trinidad MD Unavailable [phone] Emmanuel Crane MD Primary Care Provider [phone] Rosalia Trinidad MD Unavailable [phone] Emmanuel Crane MD Primary Care Provider CONSTANZA MORALES Attending Unavailable HOY, EMMANUEL M Referring Unavailable HOY, EMMANUEL M Primary Care Unavailable COCO BATISTA Attending Unavailable HOY, EMMANUEL M Primary Care Unavailable COCO BATISTA Referring Unavailable HOY, EMMANUEL M Primary Care Unavailable COCO BATISTA Admitting Unavailable COCO BATISTA Referring Unavailable COCO BATISTA Attending Unavailable HOY, EMMANUEL M Primary Care Unavailable COCO BATISTA Referring Unavailable HOY, EMMANUEL M Primary Care Unavailable SIMPFENDORFER, ROSALIA C Referring Unavaila ble HOY, EMMANUEL M Primary Care Unavailable HOY, EMMANUEL M Primary Care Unavailable COCO BATISTA Referring Unavailable COCO BATISTA Referring Unavailable HOY, EMMANUEL M Primary Care Unavailable SUSHILA LAZAR Attending Unavailable HOY, EMMANUEL M Primary Care Unavailable SIMPFENDORFER, ROSALIA C Referring Unavaila ble HOY, EMMANUEL M Primary Care Unavailable COCO BATISTA Admitting Unavailable COCO BATISTA Referring Unavailable COCO BATISTA Attending Unavailable HOY, EMMANUEL M Primary Care Unavailable COCO BATISTA Admitting Unavailable COCO BATISTA Referring Unavailable COCO BATISTA Attending Unavailable HOY, EMMANUEL M Primary Care Unavailable COCO BATISTA Referring Unavailable HOY, EMMANUEL M Primary Care Unavailable HOY, EMMANUEL M Primary Care Unavailable COCO BATISTA Referring Unavailable SIMPFENDORFROSALIA TRIANA Attending Unavaila ble COCO BATISTA Referring Unavailable HOY, EMMANUEL M Primary Care Unavailable COCO BATISTA Attending Unavailable COCO BATISTA Admitting Unavailable SIMPFENDORFER, ROSALIA C Attending Unavaila ble SIMPFENDORFER, ROSALIA C Referring Unavaila ble HOY, EMMANUEL M Primary Care Unavailable SIMPFENDORFER, ROSALIA C Referring Unavaila ble HOY, EMMANUEL M Primary Care Unavailable SIMPFENDORFER, ROSALIA C Referring Unavaila ble HOY, EMMANUEL M Primary Care Unavailable SIMPFENDORFER, ROSALIA C Referring Unavaila ble HOY, EMMANUEL M Primary Care Unavailable COCO BATISTA Attending Unavailable HOY, EMMANUEL M Primary Care Unavailable COCO BATISTA Referring Unavailable COCO BATISTA Attending Unavailable COCO BATISTA Admitting Unavailable HOY, EMMANUEL M Primary Care Unavailable COCO BATISTA Referring Unavailable COCO BATISTA Attending Unavailable COCO BATISTA Admitting Unavailable HOY, EMMANUEL M Primary Care Unavailable ROSALIA TRINIDAD C Attending Unavaila ble ROSALIA TRINIDAD C Referring Unavaila ble HOY, EMMANUEL M Primary Care Unavailable HOY, EMMANUEL M Primary Care Unavailable COCO BATISTA Referring Unavailable HOY, EMMANUEL M Referring Unavailable HOY, EMMANUEL M Primary Care Unavailable HOY, EMMANUEL M Referring Unavailable HOY, EMMANUEL M Primary Care Unavailable HOY, EMMANUEL M Referring Unavailable HOY, EMMANUEL M Primary Care Unavailable HOY, EMMANUEL M Referring Unavailable HOY, EMMANUEL M Primary Care Unavailable HOY, EMMANUEL M Referring Unavailable HOY, EMMANUEL M Primary Care Unavailable HOY, EMMANUEL M Referring Unavailable HOY, EMMANUEL M Primary Care Unavailable HOY, EMMANUEL M Referring Unavailable HOY, EMMANUEL M Primary Care Unavailable HOY, EMMANUEL M Referring Unavailable HOY, EMMANUEL M Primary Care Unavailable HOY, EMMANUEL M Referring Unavailable HOY, EMMANUEL M Primary Care Unavailable HOY, EMMANUEL M Referring Unavailable HOY, EMMANUEL M Primary Care Unavailable HOY, EMMANUEL M Referring Unavailable HOY, EMMANUEL M Primary Care Unavailable HOY, EMMANUEL M Referring Unavailable HOY, EMMANUEL M Primary Care Unavailable HOY, EMMANUEL M Referring Unavailable HOY, EMMANUEL M Primary Care Unavailable HOY, EMMANUEL M Referring Unavailable HOY, EMMANUEL M Primary Care Unavailable HOY, EMMANUEL M Referring Unavailable HOY, EMMANUEL M Primary Care Unavailable HOY, EMMANUEL M Referring Unavailable HOY, EMMANUEL M Primary Care Unavailable HOY, EMMANUEL M Referring Unavailable HOY, MEMANUEL M Primary Care Unavailable HOY, EMMANUEL M Referring Unavailable HOY, EMMANUEL M Primary Care Unavailable HOY, EMMANUEL M Referring Unavailable HOY, EMMANUEL M Primary Care Unavailable HOY, EMMANUEL M Referring Unavailable HOY, EMMANUEL M Primary Care Unavailable HOY, EMMANUEL M Referring Unavailable HOY, EMMANUEL M Primary Care Unavailable HOY, EMMANUEL M Referring Unavailable HOY, EMMANUEL M Primary Care Unavailable HOY, EMMANUEL M Referring Unavailable HOY, EMMANUEL M Primary Care Unavailable HOY, EMMANUEL M Referring Unavailable HOY, EMMANUEL M Primary Care Unavailable HOY, EMMANUEL M Referring Unavailable HOY, EMMANUEL M Primary Care Unavailable HOY, EMMANUEL M Referring Unavailable HOY, EMMANUEL M Primary Care Unavailable HOY, EMMANUEL M Referring Unavailable HOY, EMMANUEL M Primary Care Unavailable HOY, EMMANUEL M Referring Unavailable HOY, EMMANUEL M Primary Care Unavailable HOY, EMMANUEL M Referring Unavailable HOY, EMMANUEL M Primary Care Unavailable HOY, EMMANUEL M Referring Unavailable HOY, EMMANUEL M Primary Care Unavailable HOY, EMMANUEL M Referring Unavailable HOY, EMMANUEL M Primary Care Unavailable HOY, EMMANUEL M Referring Unavailable HOY, EMMANUEL M Primary Care Unavailable HOY, EMMANUEL M Referring Unavailable HOY, EMMANUEL M Primary Care Unavailable HOY, EMMANUEL M Referring Unavailable HOY, EMMANUEL M Primary Care Unavailable HOY, EMMANUEL M Referring Unavailable HOY, EMMANUEL M Primary Care Unavailable HOY, EMMANUEL M Referring Unavailable HOY, EMMANUEL M Primary Care Unavailable HOY, EMMANUEL M Referring Unavailable HOY, EMMANUEL M Primary Care Unavailable HOY, EMMANUEL M Referring Unavailable HOY, EMMANUEL M Primary Care Unavailable HOY, EMMANUEL M Referring Unavailable HOY, EMMANUEL M Primary Care Unavailable HOY, EMMANUEL M Referring Unavailable HOY, EMMANUEL M Primary Care Unavailable HOY, EMMANUEL M Referring Unavailable HOY, EMMANUEL M Primary Care Unavailable HOY, EMMANUEL M Referring Unavailable HOY, EMMANUEL M Primary Care Unavailable HOY, EMMANUEL M Referring Unavailable HOY, EMMANUEL M Primary Care Unavailable HOY, EMMANUEL M Referring Unavailable HOY, EMMANUEL M Primary Care Unavailable HOY, EMMANUEL M Referring Unavailable HOY, EMMANUEL M Primary Care Unavailable HOY, EMMANUEL M Referring Unavailable HOY, EMMANUEL M Primary Care Unavailable HOY, EMMANUEL M Referring Unavailable HOY, EMMANUEL M Primary Care Unavailable HOY, EMMANUEL M Referring Unavailable HOY, EMMANUEL M Primary Care Unavailable HOY, EMMANUEL M Referring Unavailable HOY, EMMANUEL M Primary Care Unavailable HOY, EMMANUEL M Referring Unavailable HOY, EMMANUEL M Primary Care Unavailable HOY, EMMANUEL M Referring Unavailable HOY, EMMANUEL M Primary Care Unavailable HOY, EMMANUEL M Referring Unavailable HOY, EMMANUEL M Primary Care Unavailable GRILLIS, SHARITA E Admitting Unavailable SHARITA SIMS Attending Unavailable EMMANUEL CRANE Primary Care Unavailable Emmanuel Crane MD Primary Care Provider [phone] Emmanuel Crane MD Primary Care Provider [phone] Emmanuel Crane MD Primary Care Provider [phone] Medications Current Medications Medication Drug Class(es) Dates Sig (Normalized) Sig (Original) acetaminophen 500 mg oral tablet (8 sources) Start: 11-02-2023 take 2 tablets by mouth every six hours as needed acetaminophen (TYLENOL EXTRA STRENGTH) 500 mg tablet Take 2 tablets (1,000 mg total) by mouth every 6 (six) hours as needed. 11/02/2023 Active Comment on above: Take 2 tablets by mo [facility] every 6 hours as needed for pain. [...] tablet (12 sources) HMG-CoA Reductase Inhibitor Start: 3 take 1 tablet by mouth once daily [...] oral tablet (20 sources) P2Y12 Platelet Inhibitor End: 4 take 1 tablet by mouth once daily [...] 1 tablet by [facility] once daily. ferrous sulfate 325 mg oral tablet (20 [...] blake th once daily for 5 days. glimepiride 2 mg oral tablet (5 sources) Sulfonylurea glimepiride (AMARYL) 2 mg tablet Take 1 tablet (2 mg total) by mouth. Active hydroCHLOROthiazide 25 mg / olmesartan medoxomil 40 mg oral tablet (20 sources) Thiazide Diuretic, Angiotensin 2 Receptor Jackie take 1 tablet by mouth once daily olmesartan-hydro chlorothiazide (BENICAR HCT) 40-25 mg per tablet Take 1 tablet by mouth daily Active Comment on above: Take 1 tablet by blake [facility] once daily. 24 hr isosorbide mononitrate 30 mg extended release oral tablet (10 sources) Nitrate Vasodilator take 1 tablet by mouth once daily isosorbide mononitrate (IMDUR) 30 mg 24 hr tablet Take 1 tablet (30 mg total) by mouth daily. Active Comment on above: Take 30 mg by mouth once daily. metFORMIN hydrochloride 1000 mg oral tablet (20 [...] release oral capsule (20 sources) Nicotinic Acid End: 08-17-2024 take 4 tablets by mouth once daily at bedtime niacin 500 mg CR capsule Take 500 mg by mouth nightly 4 tabs hs Active Comment on above: Take 500 mg by mouth nightly 4 tabs hs peg 3350-sod sulf,paom-xtk-zvc 178.7-7.3-0.5 gram recon soln (1 source) Start: 08-17-2024 End: 08-18-2024 peg 3350-sod sulf,chlr-pot-ma g 178.7-7.3-0.5 gram recon soln Indications: Anemia, unspecified type Take 1 kit by mouth once daily for 1 dose. Please see instructional sheet given by physicians office. 1 each 08/17/2024 08/18/2024 Active pioglitazone 30 mg oral tablet (20 sources) Peroxisome Proliferator Receptor alpha Agonist, Peroxisome Proliferator Receptor gamma Agonist, Thiazolidinedione Start: 01-08-2021 pioglitazone (ACTOS) 30 mg tablet 01/08/2021 Active Comment on above: Take 30 mg by mouth once daily. Take 1 tablet by blake once daily. tamsulosin hydrochloride 0.4 mg oral capsule (10 sources) alpha-Adrenergic Jackie Start: 11-02-2023 take 1 capsule by mouth in the morning tamsulosin (FLOMAX) 0.4 mg capsule Take 1 capsule (0.4 mg total) by mouth in the morning. 11/02/2023 Active Comment on above: Take 1 capsule by mo [facility] once daily. vitamin b12 1 mg/ml oral solution (3 sources) Vitamin B12 take 2500 mg by mouth in the morning cyanocobalamin, vitamin B-12, 1,000 mcg/mL drops Take 2,500 mg by mouth in the morning. Active Zinc (5 sources) take 50 mg by mouth once daily ZINC ORAL Take 50 mg by mouth once daily. Active take 50 mg by mouth in the morni ng ZINC ORAL Take 50 mg by mouth in the morning. Active take 50 mg by mouth once daily Z INC ORAL Take 50 mg by mouth once daily. 0 Active Completed/Discontinued Medications Medication Drug Class(es) Dates Sig (Normalized) Sig (Original) calcium polycarbophil 625 mg oral tablet (20 sources) End: 08-17-2024 take 2 tablets by mouth once daily at bedtime polycarbophil (FIBERCON) 625 mg tablet Take 625 mg by mouth daily 2 tabs at hs 08/17/2024 Discontinued (Therapy completed) Comment on above: Take 2 tablets by [facility]. docusate sodium 100 mg oral capsule (20 sources) Start: 11-02-2023 End: 06-14-2024 take 1 capsule by mouth twice daily docusate sodium (COLACE) 100 mg capsule Take 1 capsule by mouth two times a day. 0 11/02/2023 06/14/2024 Discontinued (Course of therapy completed) End: 08-17-2024 take 2 tablets by mouth once daily docusate sodium (COLACE) 100 mg capsule Take 100 mg by mouth nightly 2 tabs 08/17/2024 Discontinued (Therapy completed) Comment on above: Take 1 capsule by [facility] two times a day. febuxostat 80 mg oral tablet (20 sources) Xanthine Oxidase Inhibitor End: take 1 tablet by mouth once daily febuxostat (ULORIC) 80 mg tablet Take 80 mg by mouth daily. 08/17/2024 Discontinued (Therapy completed) gemfibrozil 600 mg oral tablet (20 sources) Peroxisome Proliferator Receptor alpha Agonist Start: 1 End: 4 gemfibroziL (LOPID) 600 mg tablet 01/08/2021 08/17/2024 Discontinued (Therapy completed) 12 hr guaiFENesin 600 mg extended release oral tablet (6 sources) Start: 3 End: 4 take 1 tablet by mouth every twelve hours as needed for cough guaiFENesin (MUCINEX) 600 mg 12 hr tablet Take 1 tablet by mouth every 12 hours as needed (cough). 0 11/02/2023 06/14/2024 Discontinued (Course of therapy completed) Comment on above: Take 1 tablet by [facility] every 12 hours as needed (cough). ibuprofen 800 mg oral tablet (20 sources) Nonsteroidal Anti-inflammatory Drug Start: 8 End: 4 take 1 tablet by mouth three times daily as needed for pain ibuprofen (ADVIL,MOTRIN) 800 mg tablet Take 1 tablet (800 mg total) by mouth 3 (three) times a day as needed for pain for up to 30 doses. 30 tablet 04/13/2018 08/17/2024 Discontinued (Therapy completed) magnesium sulfate 0.0277 meq/ml / potassium sulfate 0.0374 meq/ml / sodium sulfate 0.257 meq/ml oral solution (20 sources) Start: End: sodium,potassium,mag sulfates (SUPREP BOWEL PREP KIT) 17.5-3.13-1.6 gram recon soln 177 ml,actual weight, 2 times daily, Oral 1 kit 01/15/2021 08/17/2024 Discontinued (Therapy completed) Start: 01-15-2021 sodium,potassi um,mag sulfates (SUPREP BOWEL PREP KIT) 17.5-3.13-1.6 gram recon soln 177 ml,actual weight, 2 times daily, Oral 1 kit 0 01/15/2021 Active melatonin 3 mg oral tablet (6 sources) Start: 11-02-2023 End: 06-14-2024 take 1 tablet by mouth every twenty-four hours as needed melatonin 3 mg tablet Take 1 tablet by mouth at bedtime as needed for insomnia. 0 11/02/2023 06/14/2024 Discontinued (Course of therapy completed) Comment on above: Take 1 tablet by [facility] at bedtime as needed for insomnia. metoprolol tartrate 37.5 mg oral tablet (6 sources) beta-Adrenergic Jackie Start: 11-02-2023 End: 06-14-2024 take 1 tablet by mouth every eight hours metoprolol tartrate 37.5 mg tab Take 1 tablet by mouth every 8 hours. 90 tablet 1 11/02/2023 06/14/2024 Discontinued (Course of therapy completed) Comment on above: Take 1 tablet by blake [facility] every 8 hours. mupirocin 0.02 mg/mg topical ointment (3 sources) RNA Synthetase Inhibitor Antibacterial Start: 10-27-2023 mupirocin (BACTROBAN) 2 % ointment Apply a small amount in each nostril using a cotton swab twice the day before surgery and once the morning of surgery. 22 g 0 10/27/2023 Suspended Comment on above: Apply a small amount in each nostril using a cotton swab twice the day before surgery and once the morning of surgery. omega-3 acid ethyl esters (group home) 1000 mg oral capsule (20 sources) End: 08-17-2024 take 4 tablets by mouth three times daily at bedtime omega-3 acid ethyl esters (LOVAZA) 1 gram capsule Take 1,000 mg by mouth 3 times daily 4 tabs at hs 08/17/2024 Discontinued (Therapy completed) pantoprazole 20 mg delayed release oral tablet (6 sources) Proton Pump Inhibitor Start: 11-03-2023 End: 06-14-2024 take 1 tablet by mouth once daily in the morning pantoprazole DR (PROTONIX) 20 mg tablet Take 1 tablet by mouth daily at 6 am for 7 days. 7 tablet 0 11/03/2023 06/14/2024 Discontinued (Course of therapy completed) Comment on above: Take 1 tablet by blake [facility] daily at 6 am for 7 days. polyethylene glycol 3350 50789 mg powder for oral solution (6 sources) Osmotic Laxative Start: 11-02-2023 End: 06-14-2024 polyethylene glycol 3350 17 gram packet Take [...] 1.34 mg/ml pen injector (11 sources) Start: 11-02-2023 End: 06-14-2024 semaglutide (OZEMPIC) 0.25 mg or 0.5 mg(2 mg/1.5 mL) pen Inject 0.5 mg subcutaneously one time a week. 0 11/02/2023 06/14/2024 Discontinued (Course of therapy completed) semaglutide (OZE MPIC) 0.25 mg or 0.5 mg(2 mg/1.5 mL) pen Inject 0.5 mg subcutaneously one time a week. 0 Suspended Comment on above: Inject 0.5 mg subcut aneously one time a week. SITagliptin 100 mg oral tablet (20 sources) Dipeptidyl Peptidase 4 Inhibitor End: 08-17-20 take 1 tablet by mouth once daily sitaGLIPtin (JANUVIA) 100 mg tablet Take 100 mg by mouth daily 08/17/2024 Discontinued (Therapy completed) Problems Active Problems Problem Classification Problem Date [...] myocardial infarction; Translations: [Atherosclerotic heart disease of [place] coronary artery without angina pectoris] Onset: 03-01-2021 Chronic Deficiency and other anemia (1 source) Anemia, unspecified; Translations: [Anemia, unspecified] Onset: 08-17-2024 Episodic Deficiency and other anemia (3 sources) Anemia; Translations: [Anemia, unspecified] Onset: 08-17-2024 08-16-2024 Episodic Diabetes mellitus without complication (19 sources) [...] Onset: 06-15-2023 Episodic Other aftercare (1 source) assisted (current) use of aspirin; Translations: [CARE HOME CURRENT USE OF ASPIRIN] Onset: 03-01-2021 Episodic Other aftercare (1 source) assisted (current) use of 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/anti platelets; Translations: [PRIMARY HEALTH ORGANISATION MANAGER ANTITHROMBOT/ANTIPLA TLETS] Onset: 03-01-2021 Episodic Other aftercare (1 source) assisted (current) use of oral hypoglycemic drugs; Translations: [PRIMARY HEALTH ORGANISATION MANAGER USE ORAL HYPOGLYCEMIC DX] Onset: 03-01-2021 Episodic Other aftercare (1 source) Encounter for follow-up examination after completed treatment for conditions other than malignant neoplasm; Translations: [Surgery follow-up] Onset: 11-10-2023 Episodic Other circulatory disease (4 sources) Low blood pressure; Translations: [Hypotension, unspecified] Onset: 10-28-2023 Resolved: 10-29-2023 10-29-2023 Episodic Other gastrointestinal disorders (7 sources) Swollen abdomen; Translations: [Abdominal distension (gaseous)] Onset: 10-30-2023 10-30-2023 Episodic Other gastrointestinal disorders (1 source) Loose stool; Translations: [Other fecal abnormalities] 08-17-2024 Episodic Other nervous system disorders (8 sources) [...] cx Ql (Lenny fld) Negative Normal NEG [facility] Comment on above: Performed By: #### 4 4015-6 #### [facility] ([id number]) [address] [place] [address] [address] [place] [address] Surgical Pathologyon 024 Surgical Pathology Normal [facility] Comment on above: Result Comment: [facility] [address] [place] [address] Surgical Pathology Consultation ADDENDUM ME Patient Name:ROLAND HONG:1955 (Age: 69)Gender:MTaken:08/29/2024eported:09/01/2024hysician(s):Primo Sims D.O. ([phone])Copy To: Rec. #:[id number]: #[id number] Final Pathologic Diagnosis 1. Antrum biopsy: Mild chronic inactive antral gastritis, with features suggestive chemical or reactive gastritis. No intestinal metaplasia or dysplasia. Immunohistochemistry for Helicobacter pylori organisms is pending; addendum to follow. 2. Rectal polyp; polypectomy: Non-diagnostic sample (only food particles noted). Report Electronically Signed Out taras/09/01/2024Jalen Jones MD Addendum (PHS) Date Reported: 09/06/2024 In specimen part 1, immunohistochemistry (with appropriate controls) is NEGATIVE for Helicobacter pylori organisms. Electronically Signed Out Jalen Jones MD Interpretation performed at [facility], [address] [place] [address], License number: [id number]. Clinical History Anemia. Gross Description 1. Received in formalin labeled RUFTY, antrum are two light hannah soft tissue bits, 0.2 and 0.3 cm. The specimen is filtered and entirely submitted in a single cassette. (1, ns, [id number],m8) DM. 2. Received in formalin labeled RUFTY, rectum is a hannah possible soft tissue bit admixed with friable vegetative material, less than 0.1 cm. The specimen is filtered and entirely submitted in a single cassette. (1, ns, [id number],m8) DM. dm/08/30/2024NSK Specimen(s) Received 1: Antrum biopsy 2: Rectal polyp Fee Codes(s): 1; 74023, 31126 2; 92862 CNPNon 08-23-2024 CNPN Normal [facility] CNOVon 06-14-2024 CNOV Normal [facility] Comprehensive metabolic 2000 panelon 06-14-2024 Albumin [Mass/Vol] 4.7 g/dL Normal 3.9-4.9 [facility] Comment on above: Order Comment: Speci men Type: BLOOD SPECIMENOrdering Facility: [facility] Address: [address] [place] [address] Performed By: #### 2 4323-8, 81439-0 ####[facility] [id number] [place] [address], [place] [address] [place] ALP [Catalytic activity/Vol] 87 U/L Normal 38-113 [facility] Comment on above: Order Comment: Speci men Type: BLOOD SPECIMENOrdering Facility: [facility] Address: [address] [place] [address] Performed By: #### 2 4323-8, 48013-4 ####[facility] [id number] [place] [address] [place] ALT [Catalytic activity/Vol] 16 U/L Normal 10-54 [facility] Comment on above: Order Comment: Speci men Type: BLOOD SPECIMENOrdering Facility: [facility] Address: [address] [place] [address] Performed By: #### 2 4323-8, 35494-2 ####[facility] [id number] [place] [address] [place] Anion gap [Moles/Vol] 12 mmol/L Normal 8-15 [facility] Comment on above: Order Comment: Speci men Type: BLOOD SPECIMENOrdering Facility: [facility] Address: [address] [place] [address] Performed By: #### 2 4323-8, 45260-4 ####[facility]CLIA [id number] [place] [address] [place] AST [Catalytic activity/Vol] 18 U/L Normal 14-40 [facility] Comment on above: Order Comment: Speci men Type: BLOOD SPECIMENOrdering Facility: [facility] Address: [address] [place] [address] Performed By: #### 2 4323-8, 85705-8 ####[facility]CLIA [id number] [place] [address] [place] Bilirubin [Mass/Vol] 0.3 mg/dL Normal 0.2-1.3 [facility] Comment on above: Order Comment: Speci men Type: BLOOD SPECIMENOrdering Facility: [facility] Address: [address] [place] [address] Performed By: #### 2 4323-8, 88488-5 ####[facility]CLIA [id number] [place] [address] [place] Calcium [Mass/Vol] 9.9 mg/dL Normal 8.5-10.2 [facility] Comment on above: Order Comment: Speci men Type: BLOOD SPECIMENOrdering Facility: [facility] Address: [address] [id number] Performed By: #### 2 4323-8, 10404-5 ####[facility]CLIA [id number] [place] [address] [place] Chloride [Moles/Vol] 102 mmol/L Normal 98-107 [facility] Comment on above: Order Comment: Speci men Type: BLOOD SPECIMENOrdering Facility: [facility] Address: [address] [place] [address] Performed By: #### 2 4323-8, 49203-1 ####[facility]CLIA [id number] [place] [address] [place] CO2 [Moles/Vol] 25 mmol/L Normal 22-30 [facility] Comment on above: Order Comment: Speci men Type: BLOOD SPECIMENOrdering Facility: [facility] Address: [address] [place] [address] Performed By: #### 2 4323-8, 90035-4 ####[facility]CLIA [id number] [place] [address] [place] Creatinine [Mass/Vol] 1.27 mg/dL High 0.73-1.22 [facility] Comment on above: Order Comment: Speci men Type: BLOOD SPECIMENOrdering Facility: [facility] Address: [address] [place] [address] Performed By: #### 2 4323-8, 15215-5 ####[facility]CLIA [id number] [place] [address] [place] Creatinine and Glomerular filtration rate.predicted panel (S/P/Bld) 62 mL/min/1.73m??? Normal >=60 [facility] Comment on above: Order Comment: Speci men Type: BLOOD SPECIMENOrdering Facility: [facility] Address: [address] [place] [address] Result Comment: Gisselle mated Glomerular Filtration Rate [...] actual GFR. Performed By: #### 2 4323-8, 04339-2 ####[facility] LABIA [id number] [place] [address] [place] Glucose [Mass/Vol] 78 mg/dL Normal 74-99 [facility] Comment on above: Order Comment: Enma perry Type: BLOOD SPECIMENOrdering Facility: [facility] Address: [address] [place] [address] Result Comment: The [place] Diabetes Association (ADA) provides guidance for cutoff [...] Standards of Medical Care in Diabetes 2016, [place] Diabetes Association. Diabetes Care. 2016.39(Suppl 1). Performed By: #### 2 4323-8, 82825-8 ####[facility] LABIA [id number] [place] [id number] [place] Potassium [Moles/Vol] 4.4 mmol/L Normal 3.7-5.1 [facility] Comment on above: Order Comment: Enma perry Type: BLOOD SPECIMENOrdering Facility: [facility] Address: [address] [place] [address] Performed By: #### 2 4323-8, 77677-3 ####[facility] LABCLIA [id number] [place] [id number] [place] Protein [Mass/Vol] 6.8 g/dL Normal 6.3-8.0 [facility] Comment on above: Order Comment: Speci men Type: BLOOD SPECIMENOrdering Facility: [facility] Address: [address] [place] [address] Performed By: #### 2 4323-8, 17855-3 ####[facility] LABCLIA [id number] [place] [address] [place] Sodium [Moles/Vol] 139 mmol/L Normal 136-144 [facility] Comment on above: Order Comment: Speci men Type: BLOOD SPECIMENOrdering Facility: [facility] Address: [address] [place] [address] Performed By: #### 2 4323-8, 90024-3 ####[facility] LABIA [id number] [place] [address] [place] Urea nitrogen [Mass/Vol] 32 mg/dL High 9-24 [facility] Comment on above: Order Comment: Speci men Type: BLOOD SPECIMENOrdering Facility: [facility] Address: [address] [place] [address] Performed By: #### 2 4323-8, 23323-0 ####[facility] LABIA [id number] [place] [id number] [place] ECG COMPLETEon 06-14-2024 ECG COMPLETE Normal [facility] HbA1c (Bld)on 06-14-2024 Average glucose Estimated from glycated hemoglobin (Bld) [Mass/Vol] 134 mg/dL Normal [facility] Comment on above: Order Comment: Speci men Type: BLOOD SPECIMENOrdering Facility: [facility] Address: [address] [place] [address] Result Comment: eAG: (Estimated average glucose) is a calculated value from HgbA1c and is communications representative of the average blood glucose level in the last 2-3 month period. Performed By: #### 5 5454-3 ####[facility] LABCLIA [id number] [place] [address] [place] HbA1c (Bld) [Mass fraction] 6.3 % High 4.3-5.6 [facility] Comment on above: Order Comment: Enma perry Type: BLOOD SPECIMENOrdering Facility: [facility] Address: [address] [place] [address] Result Comment: Amer [place] Diabetes Association guidelines indicate that patients with HgbA1c in the range 5.7-6.4% are at increased risk for development of diabetes, and intervention by lifestyle modification may be beneficial. HgbA1c greater or equal to 6.5% is considered diagnostic of diabetes. Performed By: #### 5 5454-3 ####[facility] LABIA [id number] [place] [address] [place] Lipid 1996 panelon 4 Cholesterol [Mass/Vol] 168 mg/dL Normal <200 [facility] Comment on above: Order Comment: Enma perry Type: BLOOD SPECIMENOrdering Facility: [facility] Address: [address] [place] [address] Result Comment: <200 mg/dL, Desirable 200-239 mg/dL, Borderline high>239 mg/dL, High Performed By: #### 2 4323-8, 47851-6 ####[facility] LABIA [id number] [address] [place] Cholesterol in HDL [Mass/Vol] 38 mg/dL Low >39 [facility] Comment on above: Order Comment: Enma perry Type: BLOOD SPECIMENOrdering Facility: [facility] Address: [address] [place] [address] Result Comment: 40-5 9 mg/dL, Acceptable>59 mg/dL, High: Negative risk factor for coronary heart disease<40 mg/dL, Low: Positive risk factor for coronary heart disease Performed By: #### 2 4323-8, ####[facility] LABCLIA [id number] [place] [address] [place] Cholesterol in LDL [Mass/Vol] 68 mg/dL Normal <100 [facility] Comment on above: Order Comment: Speci men Type: BLOOD SPECIMENOrdering Facility: [facility] Address: [address] [place] [address] Result Comment: <100 mg/dL, Optimal 100-129 mg/dL, Near optimal/above optimal 130-159 mg/dL, Borderline high 160-189 mg/dL, High>189 mg/dL, Very highSecondary prevention optimal LDL Cholesterol levels are recommended to be < 70 mg/dL Performed By: #### 2 4328, ####[facility] LABIA [id number] [place] [address] [place] Cholesterol in LDL/Cholesterol in HDL [Mass ratio] 1.79 {ratio} Normal <2.54 [facility] Comment on above: Order Comment: Speci men Type: BLOOD SPECIMENOrdering Facility: [facility] Address: [address] [place] [address] Result Comment: Alix dow:1. National Cholesterol Education Program ATP III Guideline At-A-Glance Quick Desk Reference: National Heart, Lung, and Blood [place]. National Institutes of Health. 2001: NIH Publication No. 01-3305.2. An International Atherosclerosis Society position paper: global recommendations for the management of dyslipidemia: executive summary, Atherosclerosis. 2014: 232(2):410-413. Performed By: #### 2 43238, ####[facility] LABIA [id number] [place] [address] [place] Cholesterol in VLDL [Mass/Vol] 62 mg/dL High <30 [facility] Comment on above: Order Comment: Speci men Type: BLOOD SPECIMENOrdering Facility: [facility] Address: [address] [place] [address] Performed By: #### 2 4328, ####[facility] LABCLIA [id number] [place] [id number] [place] Cholesterol non HDL [Mass/Vol] 130 mg/dL High <130 [facility] Comment on above: Order Comment: Speci men Type: BLOOD SPECIMENOrdering Facility: [facility] Address: [address] [place] [address] Result Comment: <130 mg/dL, Optimal 130-159 mg/dL, Near optimal/above optimal 160-189 mg/dL, Borderline high 190-219 mg/dL, High>219 mg/dL, Very highSecondary prevention optimal non HDL Cholesterol levels are recommended to be <100 mg/dL Performed By: #### 2 4323-8, ####[facility] LABCLIA [id number] [place] [address] [place] Cholesterol.total/Cho lesterol in HDL [Mass ratio] 4.42 {ratio} Normal <5.10 [facility] Comment on above: Order Comment: Speci men Type: BLOOD SPECIMENOrdering Facility: [facility] Address: [address] [place] [address] Performed By: #### 2 4323-8, 14163-6 ####[facility] LABCLIA [id number] [place] [address] [place] FASTING TIME 5 hrs Normal [facility] Comment on above: Order Comment: Speci men Type: BLOOD SPECIMENOrdering Facility: [facility] Address: [address] [place] [address] Performed By: #### 2 4323-8, 33185-8 ####[facility] LABCLIA [id number] [place] [address] [place] Triglyceride [Mass/Vol] 312 mg/dL High <150 [facility] Comment on above: Order Comment: Speci men Type: BLOOD SPECIMENOrdering Facility: [facility] Address: [address] [place] [address] Result Comment: <150 mg/dL, Normal 150-199 mg/dL, Borderline high 200-499 mg/dL, High>499 mg/dL, Very high Performed By: #### 2 4323-8, 43062-7 ####[facility] LABCLIA [id number] [place] [address] [place] CNPNon 05-27-2024 CNPN Normal [facility] Glucose Glucometer (BldC) [M ass/Vol]on 12-31-2023 Glucose [Mass/Vol] 123 mg/dL High 65 - 99 mg/dL [facility] Interpretation and review of laboratory results Abnormal [facility] Glucose [Mass/Vol] 123 mg/dL High 65-99 [facility] CNPNon 12-30-2023 CNPN Normal [facility] Glucose Glucometer (BldC) [M ass/Vol]on 12-30-2023 Glucose [Mass/Vol] 135 mg/dL High 65 - 99 mg/dL [facility] Interpretation and review of laboratory results Abnormal [facility] Glucose [Mass/Vol] 135 mg/dL High 65-99 [facility] Glucose Glucometer (BldC) [M ass/Vol]on 12-28-2023 Glucose [Mass/Vol] 124 mg/dL High 65 - 99 mg/dL [facility] Interpretation and review of laboratory results Abnormal [facility] Glucose [Mass/Vol] 124 mg/dL High 65-99 [facility] Glucose Glucometer (BldC) [M ass/Vol]on 12-24-2023 Glucose [Mass/Vol] 137 mg/dL High 65 - 99 mg/dL [facility] Interpretation and review of laboratory results Abnormal [facility] Glucose [Mass/Vol] 137 mg/dL High 65-99 [facility] Glucose Glucometer (BldC) [M ass/Vol]on 12-23-2023 Glucose [Mass/Vol] 115 mg/dL High 65 - 99 mg/dL [facility] Interpretation and review of laboratory results Abnormal [facility] Glucose [Mass/Vol] 115 mg/dL High 65-99 [facility] Glucose Glucometer (BldC) [M ass/Vol]on 12-21-2023 Glucose [Mass/Vol] 107 mg/dL High 65 - 99 mg/dL [facility] Interpretation and review of laboratory results Abnormal [facility] Glucose [Mass/Vol] 107 mg/dL High 65-99 [facility] CNPNon 12-17-2023 CNPN Normal [facility] Glucose Glucometer (BldC) [M ass/Vol]on 12-17-2023 Glucose [Mass/Vol] 135 mg/dL High 65 - 99 mg/dL [facility] Interpretation and review of laboratory results Abnormal [facility] Glucose [Mass/Vol] 135 mg/dL High 65-99 [facility] Glucose Glucometer (BldC) [M ass/Vol]on 12-16-2023 Glucose [Mass/Vol] 123 mg/dL High 65 - 99 mg/dL [facility] Interpretation and review of laboratory results Abnormal [facility] Glucose [Mass/Vol] 123 mg/dL High 65-99 [facility] Glucose Glucometer (BldC) [M ass/Vol]on 12-14-2023 Glucose [Mass/Vol] 129 mg/dL High 65 - 99 mg/dL [facility] Interpretation and review of laboratory results Abnormal [facility] Glucose [Mass/Vol] 129 mg/dL High 65-99 [facility] CNPNon 12-10-2023 CNPN Normal [facility] CNOVon 12-08-2023 CNOV Normal [facility] ECG COMPLETEon 12-08-2023 ECG COMPLETE Normal [facility] CBC panel Auto (Bld)on 12-04 Erythrocyte distribution width (RBC) [Ratio] 16.8 % High 11.5-15.0 [facility] Comment on above: Order Comment: Speci men Type: BLOOD SPECIMENOrdering Facility: [facility] Address: [address] [place] [address] Performed By: #### 5 8410-2 ####[facility] LABCLIA [id number] [place] [address] [place] Hematocrit (Bld) [Volume fraction] 38.5 % Low 39.0-51.0 [facility] Comment on above: Order Comment: Speci men Type: BLOOD SPECIMENOrdering Facility: [facility] Address: [address] [place] [address] Performed By: #### 5 8410-2 ####[facility] LABIA [id number] [place] [address] [place] Hemoglobin (Bld) [Mass/Vol] 11.3 g/dL Low 13.0-17.0 [facility] Comment on above: Order Comment: Speci men Type: BLOOD SPECIMENOrdering Facility: [facility] Address: [address] [place] [address] Performed By: #### 5 8410-2 ####[facility] LABIA [id number] [place] [address] [place] MCH (RBC) [Entitic mass] 24.8 pg Low 26.0-34.0 [facility] Comment on above: Order Comment: Speci men Type: BLOOD SPECIMENOrdering Facility: [facility] Address: [address] [place] [address] Performed By: #### 5 8410-2 ####[facility] LABIA [id number] [place] [address] [place] MCHC (RBC) [Mass/Vol] 29.4 g/dL Low 30.5-36.0 [facility] Comment on above: Order Comment: Speci men Type: BLOOD SPECIMENOrdering Facility: [facility] Address: [address] [place] [address] Performed By: #### 5 8410-2 ####[facility] LABCLIA [id number] [place] [address] [place] MCV (RBC) [Entitic vol] 84.6 fL Normal 80.0-100.0 [facility] Comment on above: Order Comment: Speci men Type: BLOOD SPECIMENOrdering Facility: [facility] Address: [address] [place] [address] Performed By: #### 5 8410-2 ####[facility] LABIA [id number] [place] [address] [place] Nucleated RBC (Bld) [#/Vol] 10*3/uL Normal <0.01 [facility] Comment on above: Order Comment: Speci men Type: BLOOD SPECIMENOrdering Facility: [facility] Address: [address] [place] [address] Performed By: #### 5 8410-2 ####[facility] LABIA [id number] [place] [address] [place] Platelet mean volume (Bld) [Entitic vol] 12.2 fL Normal 9.0-12.7 [facility] Comment on above: Order Comment: Speci men Type: BLOOD SPECIMENOrdering Facility: [facility] Address: [address] [place] [address] Performed By: #### 5 8410-2 ####[facility] LABIA [id number] [place] [address] [place] Platelets (Bld) [#/Vol] 231 10*3/uL Normal 150-400 [facility] Comment on above: Order Comment: Speci men Type: BLOOD SPECIMENOrdering Facility: [facility] Address: [address] [place] [address] Performed By: #### 5 8410-2 ####[facility] LABIA [id number] [place] [address] [place] RBC (Bld) [#/Vol] 4.55 10*6/uL Normal 4.20-6.00 [facility] Comment on above: Order Comment: Speci men Type: BLOOD SPECIMENOrdering Facility: [facility] Address: [address] [place] [address] Performed By: #### 5 8410-2 ####[facility] LABCLIA [id number] [place] [address] [place] WBC (Bld) [#/Vol] 7.58 10*3/uL Normal 3.70-11.00 [facility] Comment on above: Order Comment: Speci men Type: BLOOD SPECIMENOrdering Facility: [facility] Address: [address] [place] [address] Performed By: #### 5 8410-2 ####[facility] LABCLIA [id number] [place] [address] [place] CNOVon 12-04-2023 CNOV Normal [facility] metabolic 2000 panelon 12-04-2023 Albumin [Mass/Vol] 4.5 g/dL Normal 3.9-4.9 [facility] Comment on above: Order Comment: Speci men Type: BLOOD SPECIMENOrdering Facility: [facility] Address: [address] [place] [address] Performed By: #### 2 4323-8 ####[facility] LABCLIA [id number] [place] [address] [place] ALP [Catalytic activity/Vol] 92 U/L Normal 38-113 [facility] Comment on above: Order Comment: Speci men Type: BLOOD SPECIMENOrdering Facility: [facility] Address: [address] [place] [address] Performed By: #### 2 4323-8 ####[facility] LABCLIA [id number] [place] [address] [place] ALT [Catalytic activity/Vol] 11 U/L Normal 10-54 [facility] Comment on above: Order Comment: Speci men Type: BLOOD SPECIMENOrdering Facility: [facility] Address: [address] [place] [address] Performed By: #### 2 4323-8 ####[facility] LABCLIA [id number] [place] [address] [place] Anion gap [Moles/Vol] 15 mmol/L Normal 9-18 [facility] Comment on above: Order Comment: Speci men Type: BLOOD SPECIMENOrdering Facility: [facility] Address: [address] [place] [address] Performed By: #### 2 4323-8 ####[facility] LABCLIA [id number] [place] [address] [place] AST [Catalytic activity/Vol] 15 U/L Normal 14-40 [facility] Comment on above: Order Comment: Speci men Type: BLOOD SPECIMENOrdering Facility: [facility] Address: [address] [place] [address] Performed By: #### 2 4323-8 ####[facility] LABCLIA [id number] [place] [address] [place] Bilirubin [Mass/Vol] 0.3 mg/dL Normal 0.2-1.3 [facility] Comment on above: Order Comment: Speci men Type: BLOOD SPECIMENOrdering Facility: [facility] Address: [address] [place] [address] Performed By: #### 2 4323-8 ####[facility] LABCLIA [id number] [place] [address] [place] Calcium [Mass/Vol] 10.1 mg/dL Normal 8.5-10.2 [facility] Comment on above: Order Comment: Speci men Type: BLOOD SPECIMENOrdering Facility: [facility] Address: [address] [place] [address] Performed By: #### 2 4323-8 ####[facility] LABCLIA [id number] [place] [address] [place] Chloride [Moles/Vol] 100 mmol/L Normal 97-105 [facility] Comment on above: Order Comment: Speci men Type: BLOOD SPECIMENOrdering Facility: [facility] Address: [address] [place] [address] Performed By: #### 2 4323-8 ####[facility] LABCLIA [id number] [place] [address] [place] CO2 [Moles/Vol] 27 mmol/L Normal 22-30 [facility] Comment on above: Order Comment: Speci men Type: BLOOD SPECIMENOrdering Facility: [facility] Address: [address] [place] [address] Performed By: #### 2 4323-8 ####[facility] LABCLIA [id number] [place] [address] [place] Creatinine [Mass/Vol] 1.41 mg/dL High 0.73-1.22 [facility] Comment on above: Order Comment: Speci men Type: BLOOD SPECIMENOrdering Facility: [facility] Address: [address] [place] [address] Performed By: #### 2 4323-8 ####[facility] LABIA [id number] [place] [address] [place] Creatinine and Glomerular filtration rate.predicted panel (S/P/Bld) 55 mL/min/1.73m??? Low >=60 [facility] Comment on above: Order Comment: Speci men Type: BLOOD SPECIMENOrdering Facility: [facility] Address: [address] [place] [address] Result Comment: Gisselle mated Glomerular Filtration Rate [...] actual GFR. Performed By: #### 2 4323-8 ####[facility] LABCLIA [id number] [place] [address] [place] Glucose [Mass/Vol] 105 mg/dL High 74-99 [facility] Comment on above: Order Comment: Speci men Type: BLOOD SPECIMENOrdering Facility: [facility] Address: [address] [place] [address] Result Comment: The [place] Diabetes Association (ADA) provides guidance for cutoff [...] Standards of Medical Care in Diabetes 2016, [place] Diabetes Association. Diabetes Care. 2016.39(Suppl 1). Performed By: #### 2 4323-8 ####[facility] LABCLIA [id number] [place] [address] [place] Potassium [Moles/Vol] 4.2 mmol/L Normal 3.7-5.1 [facility] Comment on above: Order Comment: Speci men Type: BLOOD SPECIMENOrdering Facility: [facility] Address: [address] [place] [address] Performed By: #### 2 4323-8 ####[facility] LABCLIA [id number] [place] [address] [place] Protein [Mass/Vol] 6.6 g/dL Normal 6.3-8.0 [facility] Comment on above: Order Comment: Speci men Type: BLOOD SPECIMENOrdering Facility: [facility] Address: [address] [place] [address] Performed By: #### 2 4323-8 ####[facility] LABCLIA [id number] [place] [address] [place] Sodium [Moles/Vol] 142 mmol/L Normal 136-144 [facility] Comment on above: Order Comment: Speci men Type: BLOOD SPECIMENOrdering Facility: [facility] Address: [address] [place] [address] Performed By: #### 2 4323-8 ####[facility] LABCLIA [id number] [place] [address] [place] Urea nitrogen [Mass/Vol] 32 mg/dL High 9-24 [facility] Comment on above: Order Comment: Speci men Type: BLOOD SPECIMENOrdering Facility: [facility] Address: [address] [place] [address] Performed By: #### 2 4323-8 ####[facility] LABIA [id number] [place] [address] [place] CBC panel Auto (Bld)on 11-10 Erythrocyte distribution width (RBC) [Ratio] 18.6 % High 11.5-15.0 [facility] Comment on above: Order Comment: Speci men Type: BLOOD SPECIMENOrdering Facility: [facility] Address: [address] [place] [address] Performed By: #### 5 8410-2 ####[facility] LABIA [id number] [place] [address] [place] Hematocrit (Bld) [Volume fraction] 32.8 % Low 39.0-51.0 [facility] Comment on above: Order Comment: Speci men Type: BLOOD SPECIMENOrdering Facility: [facility] Address: [address] [place] [address] Performed By: #### 5 8410-2 ####[facility] LABIA [id number] [place] [address] [place] Hemoglobin (Bld) [Mass/Vol] 9.8 g/dL Low 13.0-17.0 [facility] Comment on above: Order Comment: Speci men Type: BLOOD SPECIMENOrdering Facility: [facility] Address: [address] [place] [address] Performed By: #### 5 8410-2 ####[facility] LABIA [id number] [place] [address] [place] MCH (RBC) [Entitic mass] 25.8 pg Low 26.0-34.0 [facility] Comment on above: Order Comment: Speci men Type: BLOOD SPECIMENOrdering Facility: [facility] Address: [address] [place] [address] Performed By: #### 5 8410-2 ####[facility] [id number] [place] [address] [place] MCHC (RBC) [Mass/Vol] 29.9 g/dL Low 30.5-36.0 [facility] Comment on above: Order Comment: Speci men Type: BLOOD SPECIMENOrdering Facility: [facility] Address: [address] [place] [address] Performed By: #### 5 8410-2 ####[facility] [id number] [place] [address] [place] MCV (RBC) [Entitic vol] 86.3 fL Normal 80.0-100.0 [facility] Comment on above: Order Comment: Speci men Type: BLOOD SPECIMENOrdering Facility: [facility] Address: [address] [place] [address] Performed By: #### 5 8410-2 ####[facility] [id number] [place] [address] [place] Nucleated RBC (Bld) [#/Vol] 0.03 10*3/uL High <0.01 [facility] Comment on above: Order Comment: Speci men Type: BLOOD SPECIMENOrdering Facility: [facility] Address: [address] [place] [address] Performed By: #### 5 8410-2 ####[facility] [id number] [id number] [address] [place] Platelet mean volume (Bld) [Entitic vol] 10.2 fL Normal 9.0-12.7 [facility] Comment on above: Order Comment: Speci men Type: BLOOD SPECIMENOrdering Facility: [facility] Address: [address] [place] [address] Performed By: #### 5 8410-2 ####[facility] LABCLIA [id number] [place] [address] [place] Platelets (Bld) [#/Vol] 372 10*3/uL Normal 150-400 [facility] Comment on above: Order Comment: Speci men Type: BLOOD SPECIMENOrdering Facility: [facility] Address: [address] [place] [address] Performed By: #### 5 8410-2 ####[facility] LABCLIA [id number] [place] [address] [place] RBC (Bld) [#/Vol] 3.80 10*6/uL Low 4.20-6.00 [facility] Comment on above: Order Comment: Speci men Type: BLOOD SPECIMENOrdering Facility: [facility] Address: [address] [place] [address] Performed By: #### 5 8410-2 ####[facility] LABIA [id number] [place] [address] [place] WBC (Bld) [#/Vol] 14.84 10*3/uL High 3.70-11.00 [facility] Comment on above: Order Comment: Speci men Type: BLOOD SPECIMENOrdering Facility: [facility] Address: [address] [place] [address] Performed By: #### 5 8410-2 ####[facility] LABCLIA [id number] [place] [id number] [place] CNOVon 11-10-2023 CNOV Normal [facility] Comprehensive metabolic 2000 panelon 11-10-2023 Albumin [Mass/Vol] 4.0 g/dL Normal 3.9-4.9 [facility] Comment on above: Order Comment: Speci men Type: BLOOD SPECIMENOrdering Facility: [facility] Address: [address] [place] [address] Performed By: #### 2 4323-8 ####[facility] LABCLIA [id number] [place] [address] [place] ALP [Catalytic activity/Vol] 115 U/L High 38-113 [facility] Comment on above: Order Comment: Speci men Type: BLOOD SPECIMENOrdering Facility: [facility] Address: [address] [place] [address] Performed By: #### 2 4323-8 ####[facility] LABCLIA [id number] [place] [address] [place] ALT [Catalytic activity/Vol] 16 U/L Normal 10-54 [facility] Comment on above: Order Comment: Speci men Type: BLOOD SPECIMENOrdering Facility: [facility] Address: [address] [place] [address] Performed By: #### 2 4323-8 ####[facility] LABCLIA [id number] [place] [address] [place] Anion gap [Moles/Vol] 16 mmol/L Normal 9-18 [facility] Comment on above: Order Comment: Speci men Type: BLOOD SPECIMENOrdering Facility: [facility] Address: [address] [place] [address] Performed By: #### 2 4323-8 ####[facility] LABCLIA [id number] [place] [address] [place] AST [Catalytic activity/Vol] 17 U/L Normal 14-40 [facility] Comment on above: Order Comment: Speci men Type: BLOOD SPECIMENOrdering Facility: [facility] Address: [address] [place] [address] Performed By: #### 2 4323-8 ####[facility] LABCLIA [id number] [place] [address] [place] Bilirubin [Mass/Vol] 0.4 mg/dL Normal 0.2-1.3 [facility] Comment on above: Order Comment: Speci men Type: BLOOD SPECIMENOrdering Facility: [facility] Address: [address] [place] [address] Performed By: #### 2 4323-8 ####[facility] LABCLIA [id number] [place] [address] [place] Calcium [Mass/Vol] 9.7 mg/dL Normal 8.5-10.2 [facility] Comment on above: Order Comment: Speci men Type: BLOOD SPECIMENOrdering Facility: [facility] Address: [address] [place] [address] Performed By: #### 2 4323-8 ####[facility] LABCLIA [id number] [place] [address] [place] Chloride [Moles/Vol] 98 mmol/L Normal 97-105 [facility] Comment on above: Order Comment: Speci men Type: BLOOD SPECIMENOrdering Facility: [facility] Address: [address] [place] [address] Performed By: #### 2 4323-8 ####[facility] LABCLIA [id number] [place] [address] [place] CO2 [Moles/Vol] 24 mmol/L Normal 22-30 [facility] Comment on above: Order Comment: Speci men Type: BLOOD SPECIMENOrdering Facility: [facility] Address: [address] [place] [address] Performed By: #### 2 4323-8 ####[facility] LABCLIA [id number] [place] [address] [place] Creatinine [Mass/Vol] 1.11 mg/dL Normal 0.73-1.22 [facility] Comment on above: Order Comment: Speci men Type: BLOOD SPECIMENOrdering Facility: [facility] Address: [address] [place] [address] Performed By: #### 2 4323-8 ####[facility] LABIA [id number] [place] [address] [place] Creatinine and Glomerular filtration rate.predicted panel (S/P/Bld) 73 mL/min/1.73m??? Normal >=60 [facility] Comment on above: Order Comment: Enma perry Type: BLOOD SPECIMENOrdering Facility: [facility] Address: [address] [place] [address] Result Comment: Gisselle mated Glomerular Filtration Rate [...] actual GFR. Performed By: #### 2 4323-8 ####[facility] LABIA [id number] [place] [address] [place] Glucose [Mass/Vol] 129 mg/dL High 74-99 [facility] Comment on above: Order Comment: Enma perry Type: BLOOD SPECIMENOrdering Facility: [facility] Address: [address] [place] [address] Result Comment: The [place] [employer] (ADA) provides guidance for cutoff [...] Standards of Medical Care in Diabetes 2016, [place] [employer]. Diabetes Care. 2016.39(Suppl 1). Performed By: #### 2 4323-8 ####[facility] LABCLIA [id number] [place] [address] [place] Potassium [Moles/Vol] 4.1 mmol/L Normal 3.7-5.1 [facility] Comment on above: Order Comment: Speci men Type: BLOOD SPECIMENOrdering Facility: [facility] Address: [address] [place] [address] Performed By: #### 2 4323-8 ####[facility] LABCLIA [id number] [place] [address] [place] Protein [Mass/Vol] 6.6 g/dL Normal 6.3-8.0 [facility] Comment on above: Order Comment: Speci men Type: BLOOD SPECIMENOrdering Facility: [facility] Address: [address] [place] [address] Performed By: #### 2 4323-8 ####[facility] LABIA [id number] [place] [address] [place] Sodium [Moles/Vol] 138 mmol/L Normal 136-144 [facility] Comment on above: Order Comment: Speci men Type: BLOOD SPECIMENOrdering Facility: [facility] Address: [address] [place] [address] Performed By: #### 2 4323-8 ####[facility] LABCLIA [id number] [place] [address] [place] Urea nitrogen [Mass/Vol] 18 mg/dL Normal 9-24 [facility] Comment on above: Order Comment: Speci men Type: BLOOD SPECIMENOrdering Facility: [facility] Address: [address] [place] [address] Performed By: #### 2 4323-8 ####[facility] LABCLIA [id number] [place] [id number] [place] ECG COMPLETEon 11-10-2023 ECG COMPLETE Normal [facility] Urinalysis complete panel (U )on 11-10-2023 Bacteria LM.HPF (Urine sed) [#/Area] Negative Normal Negative [facility] Comment on above: Order Comment: Speci men Type: URINE SPECIMENOrdering Facility: [facility] Address: [address] [place] [address] Performed By: #### 2 4356-8 ####[facility] LABCLIA [id number] [place] [address] [place] Bilirubin Ql (U) Negative Normal Negative [facility] Comment on above: Order Comment: Speci men Type: URINE SPECIMENOrdering Facility: [facility] Address: [address] [place] [address] Performed By: #### 2 4356-8 ####[facility] LABCLIA [id number] [place] [address] [place] Clarity (Unsp spec) Clear Normal Clear [facility] Comment on above: Order Comment: Speci men Type: URINE SPECIMENOrdering Facility: [facility] Address: [address] [place] [address] Performed By: #### 2 4356-8 ####[facility] LABCLIA [id number] [place] [address] [place] Color (U) Yellow Normal Yellow [facility] Comment on above: Order Comment: Speci men Type: URINE SPECIMENOrdering Facility: [facility] Address: [address] [place] [address] Performed By: #### 2 4356-8 ####[facility] LABCLIA [id number] [place] [address] [place] Epithelial cells LM.HPF (Urine sed) [#/Area] None Seen Normal [facility] Comment on above: Order Comment: Speci men Type: URINE SPECIMENOrdering Facility: [facility] Address: [address] [place] [address] Performed By: #### 2 4356-8 ####[facility] LABCLIA [id number] [place] [address] [place] Glucose Test strip (U) [Mass/Vol] Negative Normal Negative [facility] Comment on above: Order Comment: Speci men Type: URINE SPECIMENOrdering Facility: [facility] Address: [address] [place] [address] Performed By: #### 2 4356-8 ####[facility] LABCLIA [id number] [place] [address] [place] Hemoglobin Ql (U) Negative Normal Negative [facility] Comment on above: Order Comment: Speci men Type: URINE SPECIMENOrdering Facility: [facility] Address: [address] [place] [address] Performed By: #### 2 4356-8 ####[facility] LABCLIA [id number] [place] [address] [place] Hyaline casts (Urine sed) [#/Area] 1-3 /LPF Abnormal 0 /LPF [facility] Comment on above: Order Comment: Speci men Type: URINE SPECIMENOrdering Facility: [facility] Address: [address] [place] [address] Performed By: #### 2 4356-8 ####[facility] LABCLIA [id number] [place] [address] [place] Ketones Ql (U) Trace Abnormal Negative [facility] Comment on above: Order Comment: Speci men Type: URINE SPECIMENOrdering Facility: [facility] Address: [address] [place] [address] Performed By: #### 2 4356-8 ####[facility] LABCLIA [id number] [place] [address] [place] Leukocyte esterase Test strip Ql (U) Negative Normal Negative [facility] Comment on above: Order Comment: Speci men Type: URINE SPECIMENOrdering Facility: [facility] Address: [address] [place], [place] [address] Performed By: #### 2 4356-8 ####[facility] LABCLIA [id number] [place] [address] [place] Nitrite Ql (U) Negative Normal Negative [facility] Comment on above: Order Comment: Speci men Type: URINE SPECIMENOrdering Facility: [facility] Address: [address] [place] [address] Performed By: #### 2 4356-8 ####[facility] LABCLIA [id number] [place] [address] [place] pH (U) 5.5 [pH] Normal <8.5 [facility] Comment on above: Order Comment: Speci men Type: URINE SPECIMENOrdering Facility: [facility] Address: [address] [place] [address] Performed By: #### 2 4356-8 ####[facility] LABIA [id number] [place] [address] [place] Protein (U) [Mass/Vol] Trace Abnormal Negative [facility] Comment on above: Order Comment: Speci men Type: URINE SPECIMENOrdering Facility: [facility] Address: [address] [place] [address] Performed By: #### 2 4356-8 ####[facility] LABIA [id number] [place] [address] [place] RBC LM.HPF (Urine sed) [#/Area] 0-2 /HPF Normal 0-2 /HPF [facility] Comment on above: Order Comment: Speci men Type: URINE SPECIMENOrdering Facility: [facility] Address: [address] [place] [address] Performed By: #### 2 4356-8 ####[facility] LABIA [id number] [place] [address] [place] Specific gravity (U) [Rel density] 1.018 Normal 1.005-1.030 [facility] Comment on above: Order Comment: Speci men Type: URINE SPECIMENOrdering Facility: [facility] Address: [address] [place] [address] Performed By: #### 2 4356-8 ####[facility] LABCLIA [id number] [place] [address] [place] Urobilinogen Ql (U) 1.0 EU/dL Normal 0.2-1.0 EU/dL [facility] Comment on above: Order Comment: Speci men Type: URINE SPECIMENOrdering Facility: [facility] Address: [address] [place] [address] Performed By: #### 2 4356-8 ####[facility] LABIA [id number] [place] [address] [place] WBC LM.HPF (Urine sed) [#/Area] 0-5 /HPF Normal 0-5 /HPF [facility] Comment on above: Order Comment: Speci men Type: URINE SPECIMENOrdering Facility: [facility] Address: [address] [place] [address] Performed By: #### 2 4356-8 ####[facility] LABIA [id number] [place] [address] [place] XR CHEST 2V FRONTAL/LATon XR CHEST 2V FRONTAL/LAT Normal [facility] CNPNon 11-03-2023 CNPN Normal [facility] ALLIED HEALTHon 11-02-2023 ALLIED HEALTH Normal [facility] CASE MANAGEMon 11-02-2023 CASE MANAGEM Normal [facility] CBC panel Auto (Bld)on 11-02 Erythrocyte distribution width (RBC) [Ratio] 16.8 % High 11.5-15.0 [facility] Comment on above: Order Comment: Speci men Type: BLOOD SPECIMENOrdering Facility: [facility] Address: [address] [place] [address] Performed By: #### 5 8410-2 ####[facility] LABCLIA [id number] [place] [address] [place] Hematocrit (Bld) [Volume fraction] 28.3 % Low 39.0-51.0 [facility] Comment on above: Order Comment: Speci men Type: BLOOD SPECIMENOrdering Facility: [facility] Address: [address] [place] [address] Performed By: #### 5 8410-2 ####[facility] LABIA [id number] [place] [address] [place] Hemoglobin (Bld) [Mass/Vol] 9.0 g/dL Low 13.0-17.0 [facility] Comment on above: Order Comment: Speci men Type: BLOOD SPECIMENOrdering Facility: [facility] Address: [address] [place] [address] Performed By: #### 5 8410-2 ####[facility] LABIA [id number] [place] [address] [place] MCH (RBC) [Entitic mass] 26.2 pg Normal 26.0-34.0 [facility] Comment on above: Order Comment: Speci men Type: BLOOD SPECIMENOrdering Facility: [facility] Address: [address] [place] [address] Performed By: #### 5 8410-2 ####[facility] LABIA [id number] [place] [address] [place] MCHC (RBC) [Mass/Vol] 31.8 g/dL Normal 30.5-36.0 [facility] Comment on above: Order Comment: Speci men Type: BLOOD SPECIMENOrdering Facility: [facility] Address: [address] [place] [address] Performed By: #### 5 8410-2 ####[facility] LABIA [id number] [place] [address] [place] MCV (RBC) [Entitic vol] 82.5 fL Normal 80.0-100.0 [facility] Comment on above: Order Comment: Speci men Type: BLOOD SPECIMENOrdering Facility: [facility] Address: [address] [place] [address] Performed By: #### 5 8410-2 ####[facility] LABCLIA [id number] [place] [address] [place] Nucleated RBC (Bld) [#/Vol] 0.02 10*3/uL High <0.01 [facility] Comment on above: Order Comment: Speci men Type: BLOOD SPECIMENOrdering Facility: [facility] Address: [address] [place] [address] Performed By: #### 5 8410-2 ####[facility] LABIA [id number] [place] [address] [place] Platelet mean volume (Bld) [Entitic vol] 10.8 fL Normal 9.0-12.7 [facility] Comment on above: Order Comment: Speci men Type: BLOOD SPECIMENOrdering Facility: [facility] Address: [address] [place] [address] Performed By: #### 5 8410-2 ####[facility] LABIA [id number] [place] [address] [place] Platelets (Bld) [#/Vol] 219 10*3/uL Normal 150-400 [facility] Comment on above: Order Comment: Speci men Type: BLOOD SPECIMENOrdering Facility: [facility] Address: [address] [place] [address] Performed By: #### 5 8410-2 ####[facility] LABIA [id number] [place] [address] [place] RBC (Bld) [#/Vol] 3.43 10*6/uL Low 4.20-6.00 [facility] Comment on above: Order Comment: Speci men Type: BLOOD SPECIMENOrdering Facility: [facility] Address: [address] [place] [address] Performed By: #### 5 8410-2 ####[facility] LABCLIA [id number] [place] [address] [place] WBC (Bld) [#/Vol] 8.93 10*3/uL Normal 3.70-11.00 [facility] Comment on above: Order Comment: Speci men Type: BLOOD SPECIMENOrdering Facility: [facility] Address: [address] [place] [address] Performed By: #### 5 8410-2 ####[facility] LABCLIA [id number] [place] [address] [place] CONSULT PROGon 11-02-2023 CONSULT PROG Normal [facility] Comprehensive metabolic 2000 panelon 11-02-2023 Albumin [Mass/Vol] 3.2 g/dL Low 3.9-4.9 [facility] Comment on above: Order Comment: Speci men Type: BLOOD SPECIMENOrdering Facility: [facility] Address: [address] [place] [address] Performed By: #### 2 4323-8 ####[facility] LABCLIA [id number] [place] [address] [place] ALP [Catalytic activity/Vol] 63 U/L Normal 38-113 [facility] Comment on above: Order Comment: Speci men Type: BLOOD SPECIMENOrdering Facility: [facility] Address: [address] [place] [address] Performed By: #### 2 4323-8 ####[facility] LABCLIA [id number] [place] [address] [place] ALT [Catalytic activity/Vol] 7 U/L Low 10-54 [facility] Comment on above: Order Comment: Speci men Type: BLOOD SPECIMENOrdering Facility: [facility] Address: [address] [place] [address] Performed By: #### 2 4323-8 ####[facility] LABCLIA [id number] [place] [address] [place] Anion gap [Moles/Vol] 11 mmol/L Normal 9-18 [facility] Comment on above: Order Comment: Speci men Type: BLOOD SPECIMENOrdering Facility: [facility] Address: [address] [place] [address] Performed By: #### 2 4323-8 ####[facility] LABCLIA [id number] [place] [address] [place] AST [Catalytic activity/Vol] 17 U/L Normal 14-40 [facility] Comment on above: Order Comment: Speci men Type: BLOOD SPECIMENOrdering Facility: [facility] Address: [address] [place] [address] Performed By: #### 2 4323-8 ####[facility] LABCLIA [id number] [place] [address] [place] Bilirubin [Mass/Vol] 0.5 mg/dL Normal 0.2-1.3 [facility] Comment on above: Order Comment: Speci men Type: BLOOD SPECIMENOrdering Facility: [facility] Address: [address] [place] [address] Performed By: #### 2 4323-8 ####[facility] LABCLIA [id number] [place] [address] [place] Calcium [Mass/Vol] 9.4 mg/dL Normal 8.5-10.2 [facility] Comment on above: Order Comment: Speci men Type: BLOOD SPECIMENOrdering Facility: [facility] Address: [address] [place] [address] Performed By: #### 2 4323-8 ####[facility] LABCLIA [id number] [place] [address] [place] Chloride [Moles/Vol] 98 mmol/L Normal 97-105 [facility] Comment on above: Order Comment: Speci men Type: BLOOD SPECIMENOrdering Facility: [facility] Address: [address] [place] [address] Performed By: #### 2 4323-8 ####[facility] LABCLIA [id number] [place] [address] [place] CO2 [Moles/Vol] 25 mmol/L Normal 22-30 [facility] Comment on above: Order Comment: Speci men Type: BLOOD SPECIMENOrdering Facility: [facility] Address: [address] [place] [address] Performed By: #### 2 4323-8 ####[facility] LABCLIA [id number] [place] [address] [place] Creatinine [Mass/Vol] 1.17 mg/dL Normal 0.73-1.22 [facility] Comment on above: Order Comment: Speci men Type: BLOOD SPECIMENOrdering Facility: [facility] Address: [address] [place] [address] Performed By: #### 2 4323-8 ####[facility] LABIA [id number] [place] [address] [place] Creatinine and Glomerular filtration rate.predicted panel (S/P/Bld) 69 mL/min/1.73m??? Normal >=60 [facility] Comment on above: Order Comment: Speci men Type: BLOOD SPECIMENOrdering Facility: [facility] Address: [address] [place] [address] Result Comment: Gisselle mated Glomerular Filtration Rate [...] actual GFR. Performed By: #### 2 4323-8 ####[facility] LABCLIA [id number] [place] [address] [place] Glucose [Mass/Vol] 149 mg/dL High 74-99 [facility] Comment on above: Order Comment: Speci men Type: BLOOD SPECIMENOrdering Facility: [facility] Address: [address] [place] [address] Result Comment: The [place] [employer] (ADA) provides guidance for cutoff [...] Standards of Medical Care in Diabetes 2016, [place] [employer]. Diabetes Care. 2016.39(Suppl 1). Performed By: #### 2 4323-8 ####[facility] LABCLIA [id number] [place] [address] [place] Potassium [Moles/Vol] 4.3 mmol/L Normal 3.7-5.1 [facility] Comment on above: Order Comment: Speci men Type: BLOOD SPECIMENOrdering Facility: [facility] Address: [address] [place] [address] Performed By: #### 2 4323-8 ####[facility] LABCLIA [id number] [place] [address] [place] Protein [Mass/Vol] 5.9 g/dL Low 6.3-8.0 [facility] Comment on above: Order Comment: Speci men Type: BLOOD SPECIMENOrdering Facility: [facility] Address: [address] [place] [address] Performed By: #### 2 4323-8 ####[facility] LABCLIA [id number] [place] [address] [place] Sodium [Moles/Vol] 134 mmol/L Low 136-144 [facility] Comment on above: Order Comment: Speci men Type: BLOOD SPECIMENOrdering Facility: [facility] Address: [address] [place] [address] Performed By: #### 2 4323-8 ####[facility] LABCLIA [id number] [place] [address] [place] Urea nitrogen [Mass/Vol] 47 mg/dL High 9-24 [facility] Comment on above: Order Comment: Speci men Type: BLOOD SPECIMENOrdering Facility: [facility] Address: [address] [place] [address] Performed By: #### 2 4323-8 ####[facility] LABIA [id number] [place] [address] [place] ECG COMPLETEon 11-02-2023 ECG COMPLETE Normal [facility] NURSING PROGon 11-02-2023 NURSING PROG Normal [facility] THERAPY NTon 11-02-2023 THERAPY NT Normal [facility] CBC panel Auto (Bld)on 11-01 Erythrocyte distribution width (RBC) [Ratio] 16.7 % High 11.5-15.0 [facility] Comment on above: Order Comment: Speci men Type: BLOOD SPECIMENOrdering Facility: [facility] Address: [address] [place] [address] Performed By: #### 5 8410-2 ####[facility] LABCLIA [id number] [place] [address] [place] Hematocrit (Bld) [Volume fraction] 26.4 % Low 39.0-51.0 [facility] Comment on above: Order Comment: Speci men Type: BLOOD SPECIMENOrdering Facility: [facility] Address: [address] [place] [address] Performed By: #### 5 8410-2 ####[facility] LABCLIA [id number] [place] [address] [place] Hemoglobin (Bld) [Mass/Vol] 8.4 g/dL Low 13.0-17.0 [facility] Comment on above: Order Comment: Speci men Type: BLOOD SPECIMENOrdering Facility: [facility] Address: [address] [place] [address] Performed By: #### 5 8410-2 ####[facility] LABIA [id number] [place] [address] [place] MCH (RBC) [Entitic mass] 26.3 pg Normal 26.0-34.0 [facility] Comment on above: Order Comment: Speci men Type: BLOOD SPECIMENOrdering Facility: [facility] Address: [address] [place] [address] Performed By: #### 5 8410-2 ####[facility] [id number] [place] [address] [place] MCHC (RBC) [Mass/Vol] 31.8 g/dL Normal 30.5-36.0 [facility] Comment on above: Order Comment: Speci men Type: BLOOD SPECIMENOrdering Facility: [facility] Address: [address] [place] [address] Performed By: #### 5 8410-2 ####[facility] [id number] [place] [address] [place] MCV (RBC) [Entitic vol] 82.8 fL Normal 80.0-100.0 [facility] Comment on above: Order Comment: Speci men Type: BLOOD SPECIMENOrdering Facility: [facility] Address: [address] [place] [address] Performed By: #### 5 8410-2 ####[facility] [id number] [place] [address] [place] Nucleated RBC (Bld) [#/Vol] 10*3/uL Normal <0.01 [facility] Comment on above: Order Comment: Speci men Type: BLOOD SPECIMENOrdering Facility: [facility] Address: [address] [place] [address] Performed By: #### 5 8410-2 ####[facility] LABCLIA [id number] [place] [address] [place] Platelet mean volume (Bld) [Entitic vol] 11.4 fL Normal 9.0-12.7 [facility] Comment on above: Order Comment: Speci men Type: BLOOD SPECIMENOrdering Facility: [facility] Address: [address] [place] [address] Performed By: #### 5 8410-2 ####[facility] LABCLIA [id number] [place] [address] [place] Platelets (Bld) [#/Vol] 170 10*3/uL Normal 150-400 [facility] Comment on above: Order Comment: Speci men Type: BLOOD SPECIMENOrdering Facility: [facility] Address: [address] [place] [address] Performed By: #### 5 8410-2 ####[facility] LABIA [id number] [place] [address] [place] RBC (Bld) [#/Vol] 3.19 10*6/uL Low 4.20-6.00 [facility] Comment on above: Order Comment: Speci men Type: BLOOD SPECIMENOrdering Facility: [facility] Address: [address] [place] [address] Performed By: #### 5 8410-2 ####[facility] LABIA [id number] [place] [id number] [place] WBC (Bld) [#/Vol] 11.11 10*3/uL High 3.70-11.00 [facility] Comment on above: Order Comment: Speci men Type: BLOOD SPECIMENOrdering Facility: [facility] Address: [address] [place] [address] Performed By: #### 5 8410-2 ####[facility] LABCLIA [id number] [place] [address] [place] CNDSon 11-01-2023 CNDS Normal [facility] CONSULT PROGon 11-01-2023 CONSULT PROG Normal [facility] Comprehensive metabolic 2000 panelon 11-01-2023 Albumin [Mass/Vol] 3.2 g/dL Low 3.9-4.9 [facility] Comment on above: Order Comment: Speci men Type: BLOOD SPECIMENOrdering Facility: [facility] Address: [address] [place] [address] Performed By: #### 2 4323-8 ####[facility] LABCLIA [id number] [place] [address] [place] ALP [Catalytic activity/Vol] 59 U/L Normal 38-113 [facility] Comment on above: Order Comment: Speci men Type: BLOOD SPECIMENOrdering Facility: [facility] Address: [address] [place] [address] Performed By: #### 2 4323-8 ####[facility] LABCLIA [id number] [place] [address] [place] ALT [Catalytic activity/Vol] 5 U/L Low 10-54 [facility] Comment on above: Order Comment: Speci men Type: BLOOD SPECIMENOrdering Facility: [facility] Address: [address] [place] [address] Performed By: #### 2 4323-8 ####[facility] LABCLIA [id number] [place] [address] [place] Anion gap [Moles/Vol] 12 mmol/L Normal 9-18 [facility] Comment on above: Order Comment: Speci men Type: BLOOD SPECIMENOrdering Facility: [facility] Address: [address] [place] [address] Performed By: #### 2 4323-8 ####[facility] LABCLIA [id number] [place] [address] [place] AST [Catalytic activity/Vol] 17 U/L Normal 14-40 [facility] Comment on above: Order Comment: Speci men Type: BLOOD SPECIMENOrdering Facility: [facility] Address: [address] [place] [address] Performed By: #### 2 4323-8 ####[facility] LABCLIA [id number] [place] [address] [place] Bilirubin [Mass/Vol] 0.4 mg/dL Normal 0.2-1.3 [facility] Comment on above: Order Comment: Speci men Type: BLOOD SPECIMENOrdering Facility: [facility] Address: [address] [place] [address] Performed By: #### 2 4323-8 ####[facility] LABCLIA [id number] [place] [address] [place] Calcium [Mass/Vol] 9.6 mg/dL Normal 8.5-10.2 [facility] Comment on above: Order Comment: Speci men Type: BLOOD SPECIMENOrdering Facility: [facility] Address: [address] [place] [address] Performed By: #### 2 4323-8 ####[facility] LABCLIA [id number] [place] [address] [place] Chloride [Moles/Vol] 96 mmol/L Low 97-105 [facility] Comment on above: Order Comment: Speci men Type: BLOOD SPECIMENOrdering Facility: [facility] Address: [address] [place] [address] Performed By: #### 2 4323-8 ####[facility] LABCLIA [id number] [place] [address] [place] CO2 [Moles/Vol] 24 mmol/L Normal 22-30 [facility] Comment on above: Order Comment: Speci men Type: BLOOD SPECIMENOrdering Facility: [facility] Address: [address] [place] [address] Performed By: #### 2 4323-8 ####[facility] LABCLIA [id number] [place] [id number] [place] Creatinine [Mass/Vol] 1.48 mg/dL High 0.73-1.22 [facility] Comment on above: Order Comment: Enma perry Type: BLOOD SPECIMENOrdering Facility: [facility] Address: [address] [place] [address] Performed By: #### 2 4323-8 ####[facility] LABIA [id number] [place] [address] [place] Creatinine and Glomerular filtration rate.predicted panel (S/P/Bld) 52 mL/min/1.73m??? Low >=60 [facility] Comment on above: Order Comment: Enma perry Type: BLOOD SPECIMENOrdering Facility: [facility] Address: [address] [place] [address] Result Comment: Gisselle mated Glomerular Filtration Rate [...] actual GFR. Performed By: #### 2 4323-8 ####[facility] LABIA [id number] [place] [address] [place] Glucose [Mass/Vol] 129 mg/dL High 74-99 [facility] Comment on above: Order Comment: Enma men Type: BLOOD SPECIMENOrdering Facility: [facility] Address: [address] [place] [address] Result Comment: The [place] [employer] (ADA) provides guidance for cutoff [...] Standards of Medical Care in Diabetes 2016, [place] [employer]. Diabetes Care. 2016.39(Suppl 1). Performed By: #### 2 4323-8 ####[facility] LABCLIA [id number] [place] [address] [place] Potassium [Moles/Vol] 4.4 mmol/L Normal 3.7-5.1 [facility] Comment on above: Order Comment: Speci men Type: BLOOD SPECIMENOrdering Facility: [facility] Address: [address] [place] [address] Performed By: #### 2 4323-8 ####[facility] LABCLIA [id number] [place] [address] [place] Protein [Mass/Vol] 5.7 g/dL Low 6.3-8.0 [facility] Comment on above: Order Comment: Speci men Type: BLOOD SPECIMENOrdering Facility: [facility] Address: [address] [place] [address] Performed By: #### 2 4323-8 ####[facility] LABCLIA [id number] [place] [address] [place] Sodium [Moles/Vol] 132 mmol/L Low 136-144 [facility] Comment on above: Order Comment: Speci men Type: BLOOD SPECIMENOrdering Facility: [facility] Address: [address] [place] [address] Performed By: #### 2 4323-8 ####[facility] LABCLIA [id number] [place] [address] [place] Urea nitrogen [Mass/Vol] 55 mg/dL High 9-24 [facility] Comment on above: Order Comment: Speci men Type: BLOOD SPECIMENOrdering Facility: [facility] Address: [address] [place] [address] Performed By: #### 2 4323-8 ####[facility] LABIA [id number] [place] [address] [place] ECG COMPLETEon 11-01-2023 ECG COMPLETE Normal [facility] ALLIED HEALTHon 10-31-2023 ALLIED HEALTH Normal [facility] CBC panel Auto (Bld)on 10-31 Erythrocyte distribution width (RBC) [Ratio] 16.8 % High 11.5-15.0 [facility] Comment on above: Order Comment: Speci men Type: BLOOD SPECIMENOrdering Facility: [facility] Address: [address] [place] [address] Performed By: #### 5 8410-2 ####[facility] [id number] [place] [address] [place] Hematocrit (Bld) [Volume fraction] 28.6 % Low 39.0-51.0 [facility] Comment on above: Order Comment: Speci men Type: BLOOD SPECIMENOrdering Facility: [facility] Address: [address] [place] [address] Performed By: #### 5 8410-2 ####[facility] LABIA [id number] [place] [address] [place] Hemoglobin (Bld) [Mass/Vol] 9.1 g/dL Low 13.0-17.0 [facility] Comment on above: Order Comment: Speci men Type: BLOOD SPECIMENOrdering Facility: [facility] Address: [address] [place] [address] Performed By: #### 5 8410-2 ####[facility] [id number] [place] [address] [place] MCH (RBC) [Entitic mass] 26.6 pg Normal 26.0-34.0 [facility] Comment on above: Order Comment: Speci men Type: BLOOD SPECIMENOrdering Facility: [facility] Address: [address] [place] [id number] Performed By: #### 5 8410-2 ####[facility] LABCLIA [id number] [place] [address] [place] MCHC (RBC) [Mass/Vol] 31.8 g/dL Normal 30.5-36.0 [facility] Comment on above: Order Comment: Speci men Type: BLOOD SPECIMENOrdering Facility: [facility] Address: [address] [place] [address] Performed By: #### 5 8410-2 ####[facility] LABIA [id number] [place] [address] [place] MCV (RBC) [Entitic vol] 83.6 fL Normal 80.0-100.0 [facility] Comment on above: Order Comment: Speci men Type: BLOOD SPECIMENOrdering Facility: [facility] Address: [address] [place] [address] Performed By: #### 5 8410-2 ####[facility] LABIA [id number] [place] [address] [place] Nucleated RBC (Bld) [#/Vol] 10*3/uL Normal <0.01 [facility] Comment on above: Order Comment: Speci men Type: BLOOD SPECIMENOrdering Facility: [facility] Address: [address] [place] [address] Performed By: #### 5 8410-2 ####[facility] LABIA [id number] [place] [address] [place] Platelet mean volume (Bld) [Entitic vol] 11.7 fL Normal 9.0-12.7 [facility] Comment on above: Order Comment: Speci men Type: BLOOD SPECIMENOrdering Facility: [facility] Address: [address] [place] [address] Performed By: #### 5 8410-2 ####[facility] LABIA [id number] [place] [id number] [place] Platelets (Bld) [#/Vol] 150 10*3/uL Normal 150-400 [facility] Comment on above: Order Comment: Speci men Type: BLOOD SPECIMENOrdering Facility: [facility] Address: [address] [place] [address] Performed By: #### 5 8410-2 ####[facility] LABCLIA [id number] [place] [address] [place] RBC (Bld) [#/Vol] 3.42 10*6/uL Low 4.20-6.00 [facility] Comment on above: Order Comment: Speci men Type: BLOOD SPECIMENOrdering Facility: [facility] Address: [address] [place] [address] Performed By: #### 5 8410-2 ####[facility] LABCLIA [id number] [place] [address] [place] WBC (Bld) [#/Vol] 14.84 10*3/uL High 3.70-11.00 [facility] Comment on above: Order Comment: Speci men Type: BLOOD SPECIMENOrdering Facility: [facility] Address: [address] [place] [address] Performed By: #### 5 8410-2 ####[facility] LABCLIA [id number] [place] [address] [place] CONSULT PROGon 10-31-2023 CONSULT PROG Normal [facility] Comprehensive metabolic 2000 panelon 10-31-2023 Albumin [Mass/Vol] 3.3 g/dL Low 3.9-4.9 [facility] Comment on above: Order Comment: Speci men Type: BLOOD SPECIMENOrdering Facility: [facility] Address: [address] [place] [address] Performed By: #### 2 4323-8, 44003-1 ####[facility] LABCLIA [id number] [place] [address] [place] ALP [Catalytic activity/Vol] 62 U/L Normal 38-113 [facility] Comment on above: Order Comment: Speci men Type: BLOOD SPECIMENOrdering Facility: [facility] Address: [address] [place] [address] Performed By: #### 2 4323-8, 73378-0 ####[facility] LABCLIA [id number] [place] [address] [place] ALT [Catalytic activity/Vol] 6 U/L Low 10-54 [facility] Comment on above: Order Comment: Speci men Type: BLOOD SPECIMENOrdering Facility: [facility] Address: [address] [place] [address] Performed By: #### 2 4323-8, 62066-7 ####[facility] LABCLIA [id number] [place] [address] [place] Anion gap [Moles/Vol] 13 mmol/L Normal 9-18 [facility] Comment on above: Order Comment: Speci men Type: BLOOD SPECIMENOrdering Facility: [facility] Address: [address] [place] [address] Performed By: #### 2 4323-8, ####[facility] LABCLIA [id number] [place] [address] [place] AST [Catalytic activity/Vol] 16 U/L Normal 14-40 [facility] Comment on above: Order Comment: Speci men Type: BLOOD SPECIMENOrdering Facility: [facility] Address: [address] [place] [address] Performed By: #### 2 4323-8, 22355-3 ####[facility] LABCLIA [id number] [place] [address] [place] Bilirubin [Mass/Vol] 0.5 mg/dL Normal 0.2-1.3 [facility] Comment on above: Order Comment: Speci men Type: BLOOD SPECIMENOrdering Facility: [facility] Address: [address] [id number] Performed By: #### 2 4323-8, 51578-7 ####[facility] LABCLIA [id number] [address] [address] [place] Calcium [Mass/Vol] 8.8 mg/dL Normal 8.5-10.2 [facility] Comment on above: Order Comment: Speci men Type: BLOOD SPECIMENOrdering Facility: [facility] Address: [address] [place] [address] Performed By: #### 2 4323-8, 60617-8 ####[facility] LABCLIA [id number] [place] [address] [place] Chloride [Moles/Vol] 98 mmol/L Normal 97-105 [facility] Comment on above: Order Comment: Speci men Type: BLOOD SPECIMENOrdering Facility: [facility] Address: [address] [place] [address] Performed By: #### 2 4323-8, 10415-9 ####[facility] LABCLIA [id number] [place] [address] [place] CO2 [Moles/Vol] 23 mmol/L Normal 22-30 [facility] Comment on above: Order Comment: Speci men Type: BLOOD SPECIMENOrdering Facility: [facility] Address: [address] [id number] Performed By: #### 2 4323-8, 57848-2 ####[facility] LABCLIA [id number] [address] [address] [place] Creatinine [Mass/Vol] 1.53 mg/dL High 0.73-1.22 [facility] Comment on above: Order Comment: Speci men Type: BLOOD SPECIMENOrdering Facility: [facility] Address: [address] [place] [address] Performed By: #### 2 4323-8, 29731-7 ####[facility] LABCLIA [id number] [place] [address] [place] Creatinine and Glomerular filtration rate.predicted panel (S/P/Bld) 50 mL/min/1.73m??? Low >=60 [facility] Comment on above: Order Comment: Enma perry Type: BLOOD SPECIMENOrdering Facility: [facility] Address: [address] [place] [address] Result Comment: Gisselle mated Glomerular Filtration Rate [...] actual GFR. Performed By: #### 2 4323-8, 50404-7 ####[facility] [id number] [place] [address] [place] Glucose [Mass/Vol] 165 mg/dL High 74-99 [facility] Comment on above: Order Comment: Enma perry Type: BLOOD SPECIMENOrdering Facility: [facility] Address: [address] [place] [address] Result Comment: The [place] [employer] (ADA) provides guidance for cutoff [...] Standards of Medical Care in Diabetes 2016, [place] [employer]. Diabetes Care. 2016.39(Suppl 1). Performed By: #### 2 4323-8, 74599-6 ####[facility] [id number] [place] [address] [place] Potassium [Moles/Vol] 4.4 mmol/L Normal 3.7-5.1 [facility] Comment on above: Order Comment: Speci men Type: BLOOD SPECIMENOrdering Facility: [facility] Address: [address] [place] [address] Performed By: #### 2 4323-8, 09272-7 ####[facility] LABCLIA [id number] [place] [address] [place] Protein [Mass/Vol] 5.8 g/dL Low 6.3-8.0 [facility] Comment on above: Order Comment: Speci men Type: BLOOD SPECIMENOrdering Facility: [facility] Address: [address] [place] [address] Performed By: #### 2 4323-8, 23947-2 ####[facility] LABCLIA [id number] [place] [address] [place] Sodium [Moles/Vol] 134 mmol/L Low 136-144 [facility] Comment on above: Order Comment: Speci men Type: BLOOD SPECIMENOrdering Facility: [facility] Address: [address] [place] [address] Performed By: #### 2 4323-8, 58997-6 ####[facility] LABCLIA [id number] [place] [address] [place] Urea nitrogen [Mass/Vol] 44 mg/dL High 9-24 [facility] Comment on above: Order Comment: Speci men Type: BLOOD SPECIMENOrdering Facility: [facility] Address: [address] [place] [address] Performed By: #### 2 4323-8, 94772-0 ####[facility] LABCLIA [id number] [place] [id number] [place] ECG COMPLETEon 10-31-2023 ECG COMPLETE Normal [facility] [id number] 10-31-2023 ECG01 Normal [facility] Lipid 1996 panelon 3 Cholesterol [Mass/Vol] 108 mg/dL Normal <200 [facility] Comment on above: Order Comment: Speci men Type: BLOOD SPECIMENOrdering Facility: [facility] Address: [address] [place] [address] Result Comment: <200 mg/dL, Desirable 200-239 mg/dL, Borderline high>239 mg/dL, High Performed By: #### 2 4323-8, 17403-3 ####[facility] LABCLIA [id number] [place] [address] [place] Cholesterol in HDL [Mass/Vol] 39 mg/dL Low >39 [facility] Comment on above: Order Comment: Speci men Type: BLOOD SPECIMENOrdering Facility: [facility] Address: [address] [place] [address] Result Comment: 40-5 9 mg/dL, Acceptable>59 mg/dL, High: Negative risk factor for coronary heart disease<40 mg/dL, Low: Positive risk factor for coronary heart disease Performed By: #### 2 4323-8, 60707-6 ####[facility] LABCLIA [id number] [place] [address] [place] Cholesterol in LDL [Mass/Vol] 43 mg/dL Normal <100 [facility] Comment on above: Order Comment: Speci men Type: BLOOD SPECIMENOrdering Facility: [facility] Address: [address] [place] [address] Result Comment: <100 mg/dL, Optimal 100-129 mg/dL, Near optimal/above optimal 130-159 mg/dL, Borderline high 160-189 mg/dL, High>189 mg/dL, Very highSecondary prevention optimal LDL Cholesterol levels are recommended to be < 70 mg/dL Performed By: #### 2 4323-8, 24945-3 ####[facility] LABCLIA [id number] [place] [id number] [place] Cholesterol in LDL/Cholesterol in HDL [Mass ratio] 1.10 {ratio} Normal <2.54 [facility] Comment on above: Order Comment: Speci men Type: BLOOD SPECIMENOrdering Facility: [facility] Address: [address] [place] [address] Result Comment: Alix dow:1. National Cholesterol Education Program ATP III Guideline At-A-Glance Quick Desk Reference: National Heart, Lung, and Blood [place]. National Institutes of Health. 2001: NIH Publication No. 01-3305.2. An International Atherosclerosis Society position paper: global recommendations for the management of dyslipidemia: executive summary, Atherosclerosis. 2014: 232(2):410-413. Performed By: #### 2 4323-8, 91033-3 ####[facility] LABCLIA [id number] [place] [address] [place] Cholesterol in VLDL [Mass/Vol] 26 mg/dL Normal <30 [facility] Comment on above: Order Comment: Speci men Type: BLOOD SPECIMENOrdering Facility: [facility] Address: [address] [place] [address] Performed By: #### 2 4323-8, 93336-6 ####[facility] LABCLIA [id number] [place] [address] [place] Cholesterol non HDL [Mass/Vol] 69 mg/dL Normal <130 [facility] Comment on above: Order Comment: Speci men Type: BLOOD SPECIMENOrdering Facility: [facility] Address: [address] [place] [address] Result Comment: <130 mg/dL, Optimal 130-159 mg/dL, Near optimal/above optimal 160-189 mg/dL, Borderline high 190-219 mg/dL, High>219 mg/dL, Very highSecondary prevention optimal non HDL Cholesterol levels are recommended to be <100 mg/dL Performed By: #### 2 4323-8, 26889-6 ####[facility] LABCLIA [id number] [place] [address] [place] Cholesterol.total/Cho lesterol in HDL [Mass ratio] 2.77 {ratio} Normal <5.10 [facility] Comment on above: Order Comment: Speci men Type: BLOOD SPECIMENOrdering Facility: [facility] Address: [address] [place] [address] Performed By: #### 2 4323-8, 69940-9 ####[facility] LABCLIA [id number] [place] [address] [place] FASTING TIME 10 hrs Normal [facility] Comment on above: Order Comment: Speci men Type: BLOOD SPECIMENOrdering Facility: [facility] Address: [address] [place] [address] Performed By: #### 2 4323-8, 46411-7 ####[facility] LABCLIA [id number] [place] [address] [place] Triglyceride [Mass/Vol] 132 mg/dL Normal <150 [facility] Comment on above: Order Comment: Speci men Type: BLOOD SPECIMENOrdering Facility: [facility] Address: [address] [place] [address] Result Comment: <150 mg/dL, Normal 150-199 mg/dL, Borderline high 200-499 mg/dL, High>499 mg/dL, Very high Performed By: #### 2 4323-8, 68478-2 ####[facility] LABCLIA [id number] [place] [address] [place] THERAPY NTon 10-31-2023 THERAPY NT Normal [facility] CBC panel Auto (Bld)on 10-30 Erythrocyte distribution width (RBC) [Ratio] 16.9 % High 11.5-15.0 [facility] Comment on above: Order Comment: Speci men Type: BLOOD SPECIMENOrdering Facility: [facility] Address: [address] [place] [address] Performed By: #### 5 8410-2 ####[facility] LABCLIA [id number] [place] [address] [place] Hematocrit (Bld) [Volume fraction] 31.7 % Low 39.0-51.0 [facility] Comment on above: Order Comment: Speci men Type: BLOOD SPECIMENOrdering Facility: [facility] Address: [address] [place] [address] Performed By: #### 5 8410-2 ####[facility] [id number] [place] [address] [place] Hemoglobin (Bld) [Mass/Vol] 10.1 g/dL Low 13.0-17.0 [facility] Comment on above: Order Comment: Speci men Type: BLOOD SPECIMENOrdering Facility: [facility] Address: [address] [place] [address] Performed By: #### 5 8410-2 ####[facility] [id number] [place] [address] [place] MCH (RBC) [Entitic mass] 26.8 pg Normal 26.0-34.0 [facility] Comment on above: Order Comment: Speci men Type: BLOOD SPECIMENOrdering Facility: [facility] Address: [address] [place] [address] Performed By: #### 5 8410-2 ####[facility] [id number] [place] [address] [place] MCHC (RBC) [Mass/Vol] 31.9 g/dL Normal 30.5-36.0 [facility] Comment on above: Order Comment: Speci men Type: BLOOD SPECIMENOrdering Facility: [facility] Address: [address] [place] [address] Performed By: #### 5 8410-2 ####[facility] [id number] [place] [address] [place] MCV (RBC) [Entitic vol] 84.1 fL Normal 80.0-100.0 [facility] Comment on above: Order Comment: Speci men Type: BLOOD SPECIMENOrdering Facility: [facility] Address: [address] [place] [address] Performed By: #### 5 8410-2 ####[facility] LABCLIA [id number] [place] [address] [place] Nucleated RBC (Bld) [#/Vol] 10*3/uL Normal <0.01 [facility] Comment on above: Order Comment: Speci men Type: BLOOD SPECIMENOrdering Facility: [facility] Address: [address] [place] [address] Performed By: #### 5 8410-2 ####[facility] LABIA [id number] [place] [address] [place] Platelet mean volume (Bld) [Entitic vol] 11.8 fL Normal 9.0-12.7 [facility] Comment on above: Order Comment: Speci men Type: BLOOD SPECIMENOrdering Facility: [facility] Address: [address] [place] [address] Performed By: #### 5 8410-2 ####[facility] LABIA [id number] [place] [address] [place] Platelets (Bld) [#/Vol] 167 10*3/uL Normal 150-400 [facility] Comment on above: Order Comment: Speci men Type: BLOOD SPECIMENOrdering Facility: [facility] Address: [address] [place] [address] Performed By: #### 5 8410-2 ####[facility] LABIA [id number] [place] [address] [place] RBC (Bld) [#/Vol] 3.77 10*6/uL Low 4.20-6.00 [facility] Comment on above: Order Comment: Speci men Type: BLOOD SPECIMENOrdering Facility: [facility] Address: [address] [place] [address] Performed By: #### 5 8410-2 ####[facility] LABIA [id number] [place] [address] [place] WBC (Bld) [#/Vol] 17.15 10*3/uL High 3.70-11.00 [facility] Comment on above: Order Comment: Speci men Type: BLOOD SPECIMENOrdering Facility: [facility] Address: [address] [place] [address] Performed By: #### 5 8410-2 ####[facility] LABCLIA [id number] [place] [address] [place] Erythrocyte distribution width (RBC) [Ratio] 17.1 % High 11.5-15.0 [facility] Comment on above: Order Comment: Speci men Type: BLOOD SPECIMENOrdering Facility: [facility] Address: [address] [place] [address] Performed By: #### 5 8410-2 ####[facility] LABCLIA [id number] [place] [address] [place] Hematocrit (Bld) [Volume fraction] 32.5 % Low 39.0-51.0 [facility] Comment on above: Order Comment: Speci men Type: BLOOD SPECIMENOrdering Facility: [facility] Address: [address] [place] [address] Performed By: #### 5 8410-2 ####[facility] LABCLIA [id number] [place] [address] [place] Hemoglobin (Bld) [Mass/Vol] 9.9 g/dL Low 13.0-17.0 [facility] Comment on above: Order Comment: Speci men Type: BLOOD SPECIMENOrdering Facility: [facility] Address: [address] [place] [address] Performed By: #### 5 8410-2 ####[facility] LABCLIA [id number] [place] [address] [place] MCH (RBC) [Entitic mass] 26.0 pg Normal 26.0-34.0 [facility] Comment on above: Order Comment: Speci men Type: BLOOD SPECIMENOrdering Facility: [facility] Address: [address] [place] [address] Performed By: #### 5 8410-2 ####[facility] LABIA [id number] [place] [address] [place] MCHC (RBC) [Mass/Vol] 30.5 g/dL Normal 30.5-36.0 [facility] Comment on above: Order Comment: Speci men Type: BLOOD SPECIMENOrdering Facility: [facility] Address: [address] [place] [address] Performed By: #### 5 8410-2 ####[facility] LABIA [id number] [place] [address] [place] MCV (RBC) [Entitic vol] 85.3 fL Normal 80.0-100.0 [facility] Comment on above: Order Comment: Speci men Type: BLOOD SPECIMENOrdering Facility: [facility] Address: [address] [place] [address] Performed By: #### 5 8410-2 ####[facility] LABIA [id number] [place] [address] [place] Nucleated RBC (Bld) [#/Vol] 10*3/uL Normal <0.01 [facility] Comment on above: Order Comment: Speci men Type: BLOOD SPECIMENOrdering Facility: [facility] Address: [address] [place] [address] Performed By: #### 5 8410-2 ####[facility] LABCLIA [id number] [place] [address] [place] Platelet mean volume (Bld) [Entitic vol] 12.5 fL Normal 9.0-12.7 [facility] Comment on above: Order Comment: Speci men Type: BLOOD SPECIMENOrdering Facility: [facility] Address: [address] [place] [address] Performed By: #### 5 8410-2 ####[facility] LABCLIA [id number] [place] [address] [place] Platelets (Bld) [#/Vol] 157 10*3/uL Normal 150-400 [facility] Comment on above: Order Comment: Speci men Type: BLOOD SPECIMENOrdering Facility: [facility] Address: [address] [place] [address] Performed By: #### 5 8410-2 ####[facility] LABCLIA [id number] [place] [address] [place] RBC (Bld) [#/Vol] 3.81 10*6/uL Low 4.20-6.00 [facility] Comment on above: Order Comment: Speci men Type: BLOOD SPECIMENOrdering Facility: [facility] Address: [address] [place] [address] Performed By: #### 5 8410-2 ####[facility] LABIA [id number] [place] [address] [place] WBC (Bld) [#/Vol] 15.58 10*3/uL High 3.70-11.00 [facility] Comment on above: Order Comment: Speci men Type: BLOOD SPECIMENOrdering Facility: [facility] Address: [address] [place] [address] Performed By: #### 5 8410-2 ####[facility] LABIA [id number] [place] [address] [place] CNPNon 10-30-2023 CNPN Normal [facility] CONSULTon 10-30-2023 CONSULT Normal [facility] CT ABD/PEL WO IVCONon 2022 CT ABD/PEL WO IVCON Normal [facility] Comprehensive metabolic 2000 panelon 10-30-2023 Albumin [Mass/Vol] 3.7 g/dL Low 3.9-4.9 [facility] Comment on above: Order Comment: Speci men Type: BLOOD SPECIMENOrdering Facility: [facility] Address: [address] [place] [address] Performed By: #### 2 4323-8, ####[facility] LABCLIA [id number] [address] [address] [place] ALP [Catalytic activity/Vol] 59 U/L Normal 38-113 [facility] Comment on above: Order Comment: Speci men Type: BLOOD SPECIMENOrdering Facility: [facility] Address: [address] [place] [address] Performed By: #### 2 8, ####[facility] LABCLIA [id number] [place] [address] [place] ALT [Catalytic activity/Vol] 12 U/L Normal 10-54 [facility] Comment on above: Order Comment: Speci men Type: BLOOD SPECIMENOrdering Facility: [facility] Address: [address] [place] [address] Performed By: #### 2 4323-06, ####[facility] LABCLIA [id number] [place] [address] [place] Anion gap [Moles/Vol] 11 mmol/L Normal 9-18 [facility] Comment on above: Order Comment: Speci men Type: BLOOD SPECIMENOrdering Facility: [facility] Address: [address] [place] [address] Performed By: #### 2 4323-06, ####[facility] LABCLIA [id number] [place] [id number] [place] AST [Catalytic activity/Vol] 18 U/L Normal 14-40 [facility] Comment on above: Order Comment: Speci men Type: BLOOD SPECIMENOrdering Facility: [facility] Address: [address] [place] [address] Performed By: #### 2 4323-8, ####[facility] LABCLIA [id number] [id number] [address] [place] Bilirubin [Mass/Vol] 0.3 mg/dL Normal 0.2-1.3 [facility] Comment on above: Order Comment: Speci men Type: BLOOD SPECIMENOrdering Facility: [facility] Address: [address] [place] [address] Performed By: #### 2 43201-28, ####[facility] LABCLIA [id number] [place] [address] [place] Calcium [Mass/Vol] 8.8 mg/dL Normal 8.5-10.2 [facility] Comment on above: Order Comment: Speci men Type: BLOOD SPECIMENOrdering Facility: [facility] Address: [address] [place] [address] Performed By: #### 2 4323-06, ####[facility] LABCLIA [id number] [place] [address] [place] Chloride [Moles/Vol] 99 mmol/L Normal 97-105 [facility] Comment on above: Order Comment: Speci men Type: BLOOD SPECIMENOrdering Facility: [facility] Address: [address] [place] [address] Performed By: #### 2 4323-06, ####[facility] LABCLIA [id number] [place] [address] [place] CO2 [Moles/Vol] 26 mmol/L Normal 22-30 [facility] Comment on above: Order Comment: Speci men Type: BLOOD SPECIMENOrdering Facility: [facility] Address: [address] [place] [address] Performed By: #### 2 4323-06, ####[facility] LABCLIA [id number] [address] [address] [place] Creatinine [Mass/Vol] 1.83 mg/dL High 0.73-1.22 [facility] Comment on above: Order Comment: Speci men Type: BLOOD SPECIMENOrdering Facility: [facility] Address: [address] [place] [address] Performed By: #### 2 4323-8, ####[facility] LABIA [id number] [place] [address] [place] Creatinine and Glomerular filtration rate.predicted panel (S/P/Bld) 40 mL/min/1.73m??? Low >=60 [facility] Comment on above: Order Comment: Alexandroi men Type: BLOOD SPECIMENOrdering Facility: [facility] Address: [address] [place] [address] Result Comment: Gisselle mated Glomerular Filtration Rate [...] actual GFR. Performed By: #### 2 4323-8, ####[facility] LABIA [id number] [place] [address] [place] Glucose [Mass/Vol] 163 mg/dL High 74-99 [facility] Comment on above: Order Comment: Enma or[place] Type: BLOOD SPECIMENOrdering Facility: [facility] Address: [address] [place] [address] Result Comment: The [place] [employer] (ADA) provides guidance for cutoff [...] Standards of Medical Care in Diabetes 2016, [place] [employer]. [employer]. 2016.39(Suppl 1). Performed By: #### 2 432-8, ####[facility] LABCLIA [id number] [place] [address] [place] Potassium [Moles/Vol] 4.5 mmol/L Normal 3.7-5.1 [facility] Comment on above: Order Comment: Speci men Type: BLOOD SPECIMENOrdering Facility: [facility] Address: [address] [place] [address] Performed By: #### 2 4328, ####[facility] LABCLIA [id number] [place] [address] [place] Protein [Mass/Vol] 5.9 g/dL Low 6.3-8.0 [facility] Comment on above: Order Comment: Speci men Type: BLOOD SPECIMENOrdering Facility: [facility] Address: [address] [place] [address] Performed By: #### 2 4323-06, ####[facility] LABCLIA [id number] [place] [address] [place] Sodium [Moles/Vol] 136 mmol/L Normal 136-144 [facility] Comment on above: Order Comment: Speci men Type: BLOOD SPECIMENOrdering Facility: [facility] Address: [address] [place] [id number] Performed By: #### 2 4323-06, ####[facility] LABCLIA [id number] [place] [id number] [place] Urea nitrogen [Mass/Vol] 33 mg/dL High 9-24 [facility] Comment on above: Order Comment: Speci men Type: BLOOD SPECIMENOrdering Facility: [facility] Address: [address] [id number] Performed By: #### 2 432-8, ####[facility] LABCLIA [id number] [place] [id number] [place] ECG COMPLETEon 10-30-2023 ECG COMPLETE Normal [facility] Magnesium SerPl-mCncon 10-30 Magnesium [Mass/Vol] 2.3 mg/dL Normal 1.7-2.3 [facility] Comment on above: Order Comment: Speci men Type: BLOOD SPECIMENOrdering Facility: [facility] Address: [address] [place] [address] Performed By: #### 2 4323-8, 16376-3 ####[facility] LABCLIA [id number] [place] [address] [place] SEPSIS LACTATEon 10-30-2023 Lactate [Moles/Vol] 1.6 mmol/L Normal <=2.0 [facility] Comment on above: Order Comment: Speci men Type: BLOOD SPECIMENOrdering Facility: [facility] Address: [address] [place] [address] Performed By: #### S LACT ####[facility] LABCLIA [id number] [place] [address] [place] XR CHEST 2V FRONTAL/LATon XR CHEST 2V FRONTAL/LAT Normal [facility] ARTERIAL BLOOD GASESon 10-29 Base excess Calc (Bld) [Moles/Vol] 1 mmol/L Normal 0-2 [facility] Comment on above: Order Comment: Speci men Type: ARTERIAL BLOOD SPECIMENOrdering Facility: [facility] Address: [address] [place] [address] Performed By: #### A LLBG ####[facility] LABCLIA [id number] [place] [address] [place] Body temperature 98.6 [degF] Normal [facility] Comment on above: Order Comment: Speci men Type: ARTERIAL BLOOD SPECIMENOrdering Facility: [facility] Address: [address] [place] [address] Performed By: #### A LLBG ####[facility] LABCLIA [id number] [place] [address] [place] Calcium.ionized (Bld) [Mass/Vol] 1.18 mmol/L Normal 1.08-1.30 [facility] Comment on above: Order Comment: Speci men Type: ARTERIAL BLOOD SPECIMENOrdering Facility: [facility] Address: [address] [place] [address] Performed By: #### A LLBG ####[facility] [id number] [place] [address] [place] Calcium.ionized adjusted to pH 7.4 (BldA) [Moles/Vol] 1.15 mmol/L Normal 1.08-1.30 [facility] Comment on above: Order Comment: Speci men Type: ARTERIAL BLOOD SPECIMENOrdering Facility: [facility] Address: [address] [place] [address] Performed By: #### A LLBG ####[facility] [id number] [place] [address] [place] Carboxyhemoglobin (BldA) [Mass fraction] 2.0 % Normal 0.0-2.0 [facility] Comment on above: Order Comment: Speci men Type: ARTERIAL BLOOD SPECIMENOrdering Facility: [facility] Address: [address] [place] [address] Result Comment: Carb oxyhemoglobin Reference Range for Smokers: 2.0-8.0% Performed By: #### A LLBG ####[facility] LABIA [id number] [place] [address] [place] CO2 (Bld) [Partial pressure] 49 mm Hg High 36-46 [facility] Comment on above: Order Comment: Speci men Type: ARTERIAL BLOOD SPECIMENOrdering Facility: [facility] Address: [address] [place] [address] Performed By: #### A LLBG ####[facility] LABIA [id number] [address] [id number] [address] [place] Glucose [Mass/Vol] 145 mg/dL High 60-105 [facility] Comment on above: Order Comment: Speci men Type: ARTERIAL BLOOD SPECIMENOrdering Facility: [facility] Address: [address] [place] [address] Performed By: #### A LLBG ####[facility] LABCLIA [id number] [place] [address] [place] HCO3 (Bld) [Moles/Vol] 27 mmol/L High 22-26 [facility] Comment on above: Order Comment: Speci men Type: ARTERIAL BLOOD SPECIMENOrdering Facility: [facility] Address: [address] [place] [address] Performed By: #### A LLBG ####[facility] LABCLIA [id number] [place] [address] [place] Hematocrit (Bld) [Volume fraction] 32.0 % Low 39.0-51.0 [facility] Comment on above: Order Comment: Speci men Type: ARTERIAL BLOOD SPECIMENOrdering Facility: [facility] Address: [address] [place] [address] Performed By: #### A LLBG ####[facility] LABCLIA [id number] [place] [address] [place] Hemoglobin (Bld) [Mass/Vol] 10.4 g/dL Low 13.0-17.0 [facility] Comment on above: Order Comment: Speci men Type: ARTERIAL BLOOD SPECIMENOrdering Facility: [facility] Address: [address] [place] [address] Performed By: #### A LLBG ####[facility] LABCLIA [id number] [place] [address] [place] Lactate [Moles/Vol] 0.8 mmol/L Normal 0.5-2.2 [facility] Comment on above: Order Comment: Speci men Type: ARTERIAL BLOOD SPECIMENOrdering Facility: [facility] Address: [address] [place] [address] Performed By: #### A LLBG ####[facility] LABCLIA [id number] [place] [address] [place] LITERS 1 Liters/min Normal [facility] Comment on above: Order Comment: Speci men Type: ARTERIAL BLOOD SPECIMENOrdering Facility: [facility] Address: [address] [place] [address] Performed By: #### A LLBG ####[facility] LABCLIA [id number] [place] [address] [place] Methemoglobin (Bld) [Mass fraction] 1.4 % Normal 0.0-1.5 [facility] Comment on above: Order Comment: Speci men Type: ARTERIAL BLOOD SPECIMENOrdering Facility: [facility] Address: [address] [place] [address] Performed By: #### A LLBG ####[facility] LABCLIA [id number] [place] [address] [place] O2 THERAPY NC = Nasal Cannula Normal [facility] Comment on above: Order Comment: Speci men Type: ARTERIAL BLOOD SPECIMENOrdering Facility: [facility] Address: [address] [place] [address] Performed By: #### A LLBG ####[facility] LABIA [id number] [place] [address] [place] Oxygen (Bld) [Partial pressure] 99 mm Hg High 85-95 [facility] Comment on above: Order Comment: Speci men Type: ARTERIAL BLOOD SPECIMENOrdering Facility: [facility] Address: [address] [place] [address] Performed By: #### A LLBG ####[facility] LABCLIA [id number] [place] [id number] [place] Oxyhemoglobin (BldA) [Mass fraction] 95 % Normal 95-98 [facility] Comment on above: Order Comment: Speci men Type: ARTERIAL BLOOD SPECIMENOrdering Facility: [facility] Address: [address] [place] [address] Performed By: #### A LLBG ####[facility] LABCLIA [id number] [place] [address] [place] pH (Bld) 7.35 [pH] Normal 7.35-7.45 [facility] Comment on above: Order Comment: Speci men Type: ARTERIAL BLOOD SPECIMENOrdering Facility: [facility] Address: [address] [place] [address] Performed By: #### A LLBG ####[facility] LABCLIA [id number] [place] [address] [place] Potassium [Moles/Vol] 4.1 mmol/L Normal 3.5-5.0 [facility] Comment on above: Order Comment: Speci men Type: ARTERIAL BLOOD SPECIMENOrdering Facility: [facility] Address: [address] [place] [address] Performed By: #### A LLBG ####[facility] LABCLIA [id number] [place] [address] [place] Sodium [Moles/Vol] 137 mmol/L Normal 136-144 [facility] Comment on above: Order Comment: Speci men Type: ARTERIAL BLOOD SPECIMENOrdering Facility: [facility] Address: [address] [place] [address] Performed By: #### A LLBG ####[facility] LABCLIA [id number] [place] [address] [place] Base excess Calc (Bld) [Moles/Vol] 0 mmol/L Normal 0-2 [facility] Comment on above: Order Comment: Speci men Type: ARTERIAL BLOOD SPECIMENOrdering Facility: [facility] Address: [address] [place] [address] Performed By: #### A LLBG ####[facility] LABCLIA [id number] [place] [address] [place] Body temperature 98.6 [degF] Normal [facility] Comment on above: Order Comment: Speci men Type: ARTERIAL BLOOD SPECIMENOrdering Facility: [facility] Address: [address] [place] [address] Performed By: #### A LLBG ####[facility] LABCLIA [id number] [place] [address] [place] Calcium.ionized (Bld) [Mass/Vol] 1.15 mmol/L Normal 1.08-1.30 [facility] Comment on above: Order Comment: Speci men Type: ARTERIAL BLOOD SPECIMENOrdering Facility: [facility] Address: [address] [place] [address] Performed By: #### A LLBG ####[facility] LABCLIA [id number] [place] [address] [place] Calcium.ionized adjusted to pH 7.4 (BldA) [Moles/Vol] 1.14 mmol/L Normal 1.08-1.30 [facility] Comment on above: Order Comment: Speci men Type: ARTERIAL BLOOD SPECIMENOrdering Facility: [facility] Address: [address] [place] [address] Performed By: #### A LLBG ####[facility] LABCLIA [id number] [place] [address] [place] Carboxyhemoglobin (BldA) [Mass fraction] 1.9 % Normal 0.0-2.0 [facility] Comment on above: Order Comment: Speci men Type: ARTERIAL BLOOD SPECIMENOrdering Facility: [facility] Address: [address] [place] [address] Result Comment: Carb oxyhemoglobin Reference Range for Smokers: 2.0-8.0% Performed By: #### A LLBG ####[facility] LABCLIA [id number] [place] [address] [place] CO2 (Bld) [Partial pressure] 43 mm Hg Normal 36-46 [facility] Comment on above: Order Comment: Speci men Type: ARTERIAL BLOOD SPECIMENOrdering Facility: [facility] Address: [address] [place] [address] Performed By: #### A LLBG ####[facility] LABCLIA [id number] [place] [address] [place] Glucose [Mass/Vol] 145 mg/dL High 60-105 [facility] Comment on above: Order Comment: Speci men Type: ARTERIAL BLOOD SPECIMENOrdering Facility: [facility] Address: [address] [place] [address] Performed By: #### A LLBG ####[facility] LABCLIA [id number] [place] [address] [place] HCO3 (Bld) [Moles/Vol] 25 mmol/L Normal 22-26 [facility] Comment on above: Order Comment: Speci men Type: ARTERIAL BLOOD SPECIMENOrdering Facility: [facility] Address: [address] [place] [address] Performed By: #### A LLBG ####[facility] LABCLIA [id number] [place] [address] [place] Hematocrit (Bld) [Volume fraction] 30.8 % Low 39.0-51.0 [facility] Comment on above: Order Comment: Speci men Type: ARTERIAL BLOOD SPECIMENOrdering Facility: [facility] Address: [address] [place] [address] Performed By: #### A LLBG ####[facility] LABCLIA [id number] [place] [address] [place] Hemoglobin (Bld) [Mass/Vol] 9.9 g/dL Low 13.0-17.0 [facility] Comment on above: Order Comment: Speci men Type: ARTERIAL BLOOD SPECIMENOrdering Facility: [facility] Address: [address] [place] [address] Performed By: #### A LLBG ####[facility] LABCLIA [id number] [place] [address] [place] Lactate [Moles/Vol] 0.7 mmol/L Normal 0.5-2.2 [facility] Comment on above: Order Comment: Speci men Type: ARTERIAL BLOOD SPECIMENOrdering Facility: [facility] Address: [address] [place] [address] Performed By: #### A LLBG ####[facility] LABCLIA [id number] [place] [address] [place] LITERS 2 Liters/min Normal [facility] Comment on above: Order Comment: Speci men Type: ARTERIAL BLOOD SPECIMENOrdering Facility: [facility] Address: [address] [place] [address] Performed By: #### A LLBG ####[facility] LABCLIA [id number] [place] [address] [place] Methemoglobin (Bld) [Mass fraction] 0.4 % Normal 0.0-1.5 [facility] Comment on above: Order Comment: Speci men Type: ARTERIAL BLOOD SPECIMENOrdering Facility: [facility] Address: [address] [place] [address] Performed By: #### A LLBG ####[facility] LABIA [id number] [place] [address] [place] O2 THERAPY NC = Nasal Cannula Normal [facility] Comment on above: Order Comment: Speci men Type: ARTERIAL BLOOD SPECIMENOrdering Facility: [facility] Address: [address] [place] [address] Performed By: #### A LLBG ####[facility] LABIA [id number] [place] [address] [place] Oxygen (Bld) [Partial pressure] 140 mm Hg High 85-95 [facility] Comment on above: Order Comment: Speci men Type: ARTERIAL BLOOD SPECIMENOrdering Facility: [facility] Address: [address] [place] [address] Performed By: #### A LLBG ####[facility] LABIA [id number] [place] [address] [place] Oxyhemoglobin (BldA) [Mass fraction] 97 % Normal 95-98 [facility] Comment on above: Order Comment: Speci men Type: ARTERIAL BLOOD SPECIMENOrdering Facility: [facility] Address: [address] [place] [address] Performed By: #### A LLBG ####[facility] LABIA [id number] [place] [address] [place] pH (Bld) 7.38 [pH] Normal 7.35-7.45 [facility] Comment on above: Order Comment: Speci men Type: ARTERIAL BLOOD SPECIMENOrdering Facility: [facility] Address: [address] [place] [address] Performed By: #### A LLBG ####[facility] LABIA [id number] [place] [address] [place] Potassium [Moles/Vol] 4.4 mmol/L Normal 3.5-5.0 [facility] Comment on above: Order Comment: Speci men Type: ARTERIAL BLOOD SPECIMENOrdering Facility: [facility] Address: [address] [place] [address] Performed By: #### A LLBG ####[facility] LABIA [id number] [place] [address] [place] Sodium [Moles/Vol] 137 mmol/L Normal 136-144 [facility] Comment on above: Order Comment: Speci men Type: ARTERIAL BLOOD SPECIMENOrdering Facility: [facility] Address: [address] [place] [address] Performed By: #### A LLBG ####[facility] LABIA [id number] [place] [address] [place] Base excess Calc (Bld) [Moles/Vol] 1 mmol/L Normal 0-2 [facility] Comment on above: Order Comment: Speci men Type: ARTERIAL BLOOD SPECIMENOrdering Facility: [facility] Address: [address] [place] [address] Performed By: #### A LLBG ####[facility] LABIA [id number] [place] [address] [place] Body temperature 97.88 [degF] Normal [facility] Comment on above: Order Comment: Speci men Type: ARTERIAL BLOOD SPECIMENOrdering Facility: [facility] Address: [address] [place] [address] Performed By: #### A LLBG ####[facility] LABIA [id number] [place] [address] [place] Calcium.ionized (Bld) [Mass/Vol] 1.15 mmol/L Normal 1.08-1.30 [facility] Comment on above: Order Comment: Speci men Type: ARTERIAL BLOOD SPECIMENOrdering Facility: [facility] Address: [address] [place] [address] Performed By: #### A LLBG ####[facility] LABIA [id number] [place] [address] [place] Calcium.ionized adjusted to pH 7.4 (BldA) [Moles/Vol] 1.15 mmol/L Normal 1.08-1.30 [facility] Comment on above: Order Comment: Speci men Type: ARTERIAL BLOOD SPECIMENOrdering Facility: [facility] Address: [address] [place] [address] Performed By: #### A LLBG ####[facility] LABIA [id number] [place] [address] [place] Carboxyhemoglobin (BldA) [Mass fraction] 1.7 % Normal 0.0-2.0 [facility] Comment on above: Order Comment: Speci men Type: ARTERIAL BLOOD SPECIMENOrdering Facility: [facility] Address: [address] [place] [address] Result Comment: Carb oxyhemoglobin Reference Range for Smokers: 2.0-8.0% Performed By: #### A LLBG ####[facility] LABCLIA [id number] [place] [address] [place] CO2 (Bld) [Partial pressure] 42 mm Hg Normal 36-46 [facility] Comment on above: Order Comment: Speci men Type: ARTERIAL BLOOD SPECIMENOrdering Facility: [facility] Address: [address] [place] [address] Performed By: #### A LLBG ####[facility] LABCLIA [id number] [place] [address] [place] CO2 adjusted to patient's actual temperature (Bld) [Partial pressure] 41 mmHg Normal 36-46 [facility] Comment on above: Order Comment: Speci men Type: ARTERIAL BLOOD SPECIMENOrdering Facility: [facility] Address: [address] [place] [address] Performed By: #### A LLBG ####[facility] LABCLIA [id number] [place] [address] [place] Glucose [Mass/Vol] 120 mg/dL High 60-105 [facility] Comment on above: Order Comment: Speci men Type: ARTERIAL BLOOD SPECIMENOrdering Facility: [facility] Address: [address] [place] [address] Performed By: #### A LLBG ####[facility] LABCLIA [id number] [place] [address] [place] HCO3 (Bld) [Moles/Vol] 26 mmol/L Normal 22-26 [facility] Comment on above: Order Comment: Speci men Type: ARTERIAL BLOOD SPECIMENOrdering Facility: [facility] Address: [address] [place] [address] Performed By: #### A LLBG ####[facility] LABCLIA [id number] [place] [address] [place] Hematocrit (Bld) [Volume fraction] 30.5 % Low 39.0-51.0 [facility] Comment on above: Order Comment: Speci men Type: ARTERIAL BLOOD SPECIMENOrdering Facility: [facility] Address: [address] [place] [address] Performed By: #### A LLBG ####[facility] LABCLIA [id number] [place] [address] [place] Hemoglobin (Bld) [Mass/Vol] 9.8 g/dL Low 13.0-17.0 [facility] Comment on above: Order Comment: Speci men Type: ARTERIAL BLOOD SPECIMENOrdering Facility: [facility] Address: [address] [place] [address] Performed By: #### A LLBG ####[facility] LABCLIA [id number] [place] [address] [place] Lactate [Moles/Vol] 0.6 mmol/L Normal 0.5-2.2 [facility] Comment on above: Order Comment: Speci men Type: ARTERIAL BLOOD SPECIMENOrdering Facility: [facility] Address: [address] [place] [address] Performed By: #### A LLBG ####[facility] LABCLIA [id number] [place] [address] [place] LITERS 2 Liters/min Normal [facility] Comment on above: Order Comment: Speci men Type: ARTERIAL BLOOD SPECIMENOrdering Facility: [facility] Address: [address] [place] [address] Performed By: #### A LLBG ####[facility] LABCLIA [id number] [place] [address] [place] Methemoglobin (Bld) [Mass fraction] 1.0 % Normal 0.0-1.5 [facility] Comment on above: Order Comment: Speci men Type: ARTERIAL BLOOD SPECIMENOrdering Facility: [facility] Address: [address] [place] [address] Performed By: #### A LLBG ####[facility] LABCLIA [id number] [place] [address] [place] O2 THERAPY [place] = Nasal Cannula Normal [facility] Comment on above: Order Comment: Speci men Type: ARTERIAL BLOOD SPECIMENOrdering Facility: [facility] Address: [address] [place] [address] Performed By: #### A LLBG ####[facility] LABCLIA [id number] [place] [address] [place] Oxygen (Bld) [Partial pressure] 99 mm Hg High 85-95 [facility] Comment on above: Order Comment: Speci men Type: ARTERIAL BLOOD SPECIMENOrdering Facility: [facility] Address: [address] [place] [address] Performed By: #### A LLBG ####[facility] LABCLIA [id number] [place] [address] [place] Oxygen adjusted to patient's actual temperature (Bld) [Partial pressure] 97 mmHg High 85-95 [facility] Comment on above: Order Comment: Speci men Type: ARTERIAL BLOOD SPECIMENOrdering Facility: [facility] Address: [address] [place] [address] Performed By: #### A LLBG ####[facility] LABCLIA [id number] [place] [address] [place] Oxyhemoglobin (BldA) [Mass fraction] 95 % Normal 95-98 [facility] Comment on above: Order Comment: Speci men Type: ARTERIAL BLOOD SPECIMENOrdering Facility: [facility] Address: [address] [place] [address] Performed By: #### A LLBG ####[facility] LABCLIA [id number] [place] [id number] [place] pH (Bld) 7.41 [pH] Normal 7.35-7.45 [facility] Comment on above: Order Comment: Speci men Type: ARTERIAL BLOOD SPECIMENOrdering Facility: [facility] Address: [address] [place] [address] Performed By: #### A LLBG ####[facility] LABCLIA [id number] [place] [address] [place] pH adjusted to patient's actual temperature (Bld) 7.41 Normal 7.35-7.45 [facility] Comment on above: Order Comment: Speci men Type: ARTERIAL BLOOD SPECIMENOrdering Facility: [facility] Address: [address] [place] [address] Performed By: #### A LLBG ####[facility] LABCLIA [id number] [place] [address] [place] Potassium [Moles/Vol] 4.2 mmol/L Normal 3.5-5.0 [facility] Comment on above: Order Comment: Speci men Type: ARTERIAL BLOOD SPECIMENOrdering Facility: [facility] Address: [address] [place] [address] Performed By: #### A LLBG ####[facility] LABCLIA [id number] [place] [address] [place] Sodium [Moles/Vol] 137 mmol/L Normal 136-144 [facility] Comment on above: Order Comment: Speci men Type: ARTERIAL BLOOD SPECIMENOrdering Facility: [facility] Address: [address] [place] [address] Performed By: #### A LLBG ####[facility] LABCLIA [id number] [place] [address] [place] Base excess Calc (Bld) [Moles/Vol] 1 mmol/L Normal 0-2 [facility] Comment on above: Order Comment: Speci men Type: ARTERIAL BLOOD SPECIMENOrdering Facility: [facility] Address: [address] [place] [address] Performed By: #### A LLBG ####[facility] LABCLIA [id number] [place] [address] [place] Body temperature 98.24 [degF] Normal [facility] Comment on above: Order Comment: Speci men Type: ARTERIAL BLOOD SPECIMENOrdering Facility: [facility] Address: [address] [place] [address] Performed By: #### A LLBG ####[facility] LABCLIA [id number] [place] [address] [place] Calcium.ionized (Bld) [Mass/Vol] 1.18 mmol/L Normal 1.08-1.30 [facility] Comment on above: Order Comment: Speci men Type: ARTERIAL BLOOD SPECIMENOrdering Facility: [facility] Address: [address] [place] [address] Performed By: #### A LLBG ####[facility] LABIA [id number] [place] [address] [place] Calcium.ionized adjusted to pH 7.4 (BldA) [Moles/Vol] 1.17 mmol/L Normal 1.08-1.30 [facility] Comment on above: Order Comment: Speci men Type: ARTERIAL BLOOD SPECIMENOrdering Facility: [facility] Address: [address] [place] [address] Performed By: #### A LLBG ####[facility] LABIA [id number] [place] [address] [place] Carboxyhemoglobin (BldA) [Mass fraction] 2.2 % High 0.0-2.0 [facility] Comment on above: Order Comment: Speci men Type: ARTERIAL BLOOD SPECIMENOrdering Facility: [facility] Address: [address] [place] [address] Result Comment: Carb oxyhemoglobin Reference Range for Smokers: 2.0-8.0% Performed By: #### A LLBG ####[facility] LABIA [id number] [address] [id number] [address] [place] CO2 (Bld) [Partial pressure] 44 mm Hg Normal 36-46 [facility] Comment on above: Order Comment: Speci men Type: ARTERIAL BLOOD SPECIMENOrdering Facility: [facility] Address: [address] [place] [address] Performed By: #### A LLBG ####[facility] LABCLIA [id number] [place] [address] [place] CO2 adjusted to patient's actual temperature (Bld) [Partial pressure] 44 mmHg Normal 36-46 [facility] Comment on above: Order Comment: Speci men Type: ARTERIAL BLOOD SPECIMENOrdering Facility: [facility] Address: [address] [place] [address] Performed By: #### A LLBG ####[facility] LABCLIA [id number] [place] [address] [place] Glucose [Mass/Vol] 140 mg/dL High 60-105 [facility] Comment on above: Order Comment: Speci men Type: ARTERIAL BLOOD SPECIMENOrdering Facility: [facility] Address: [address] [place] [address] Performed By: #### A LLBG ####[facility] LABCLIA [id number] [place] [address] [place] HCO3 (Bld) [Moles/Vol] 26 mmol/L Normal 22-26 [facility] Comment on above: Order Comment: Speci men Type: ARTERIAL BLOOD SPECIMENOrdering Facility: [facility] Address: [address] [place] [address] Performed By: #### A LLBG ####[facility] LABCLIA [id number] [place] [address] [place] Hematocrit (Bld) [Volume fraction] 30.5 % Low 39.0-51.0 [facility] Comment on above: Order Comment: Speci men Type: ARTERIAL BLOOD SPECIMENOrdering Facility: [facility] Address: [address] [place] [address] Performed By: #### A LLBG ####[facility] LABCLIA [id number] [place] [address] [place] Hemoglobin (Bld) [Mass/Vol] 9.8 g/dL Low 13.0-17.0 [facility] Comment on above: Order Comment: Speci men Type: ARTERIAL BLOOD SPECIMENOrdering Facility: [facility] Address: [address] [place] [address] Performed By: #### A LLBG ####[facility] LABCLIA [id number] [place] [address] [place] Lactate [Moles/Vol] 0.8 mmol/L Normal 0.5-2.2 [facility] Comment on above: Order Comment: Speci men Type: ARTERIAL BLOOD SPECIMENOrdering Facility: [facility] Address: [address] [place] [address] Performed By: #### A LLBG ####[facility] LABCLIA [id number] [place] [address] [place] LITERS 3 Liters/min Normal [facility] Comment on above: Order Comment: Speci men Type: ARTERIAL BLOOD SPECIMENOrdering Facility: [facility] Address: [address] [place] [address] Result Comment: ` Performed By: #### A LLBG ####[facility] LABCLIA [id number] [place] [address] [place] Methemoglobin (Bld) [Mass fraction] 1.0 % Normal 0.0-1.5 [facility] Comment on above: Order Comment: Speci men Type: ARTERIAL BLOOD SPECIMENOrdering Facility: [facility] Address: [address] [place] [address] Performed By: #### A LLBG ####[facility] LABCLIA [id number] [place] [address] [place] O2 THERAPY NC = Nasal Cannula Normal [facility] Comment on above: Order Comment: Speci men Type: ARTERIAL BLOOD SPECIMENOrdering Facility: [facility] Address: [address] [place] [address] Performed By: #### A LLBG ####[facility] LABCLIA [id number] [place] [address] [place] Oxygen (Bld) [Partial pressure] 121 mm Hg High 85-95 [facility] Comment on above: Order Comment: Speci men Type: ARTERIAL BLOOD SPECIMENOrdering Facility: [facility] Address: [address] [place] [address] Performed By: #### A LLBG ####[facility] LABCLIA [id number] [place] [address] [place] Oxygen adjusted to patient's actual temperature (Bld) [Partial pressure] 120 mmHg High 85-95 [facility] Comment on above: Order Comment: Speci men Type: ARTERIAL BLOOD SPECIMENOrdering Facility: [facility] Address: [address] [place] [address] Performed By: #### A LLBG ####[facility] LABCLIA [id number] [place] [address] [place] Oxyhemoglobin (BldA) [Mass fraction] 96 % Normal 95-98 [facility] Comment on above: Order Comment: Speci men Type: ARTERIAL BLOOD SPECIMENOrdering Facility: [facility] Address: [address] [place] [address] Performed By: #### A LLBG ####[facility] LABCLIA [id number] [place] [address] [place] pH (Bld) 7.38 [pH] Normal 7.35-7.45 [facility] Comment on above: Order Comment: Speci men Type: ARTERIAL BLOOD SPECIMENOrdering Facility: [facility] Address: [address] [place] [address] Performed By: #### A LLBG ####[facility] LABCLIA [id number] [place] [address] [place] pH adjusted to patient's actual temperature (Bld) 7.38 Normal 7.35-7.45 [facility] Comment on above: Order Comment: Speci men Type: ARTERIAL BLOOD SPECIMENOrdering Facility: [facility] Address: [address] [place] [address] Performed By: #### A LLBG ####[facility] LABCLIA [id number] [place] [address] [place] Potassium [Moles/Vol] 3.9 mmol/L Normal 3.5-5.0 [facility] Comment on above: Order Comment: Speci men Type: ARTERIAL BLOOD SPECIMENOrdering Facility: [facility] Address: [address] [place] [address] Performed By: #### A LLBG ####[facility] LABCLIA [id number] [place] [address] [place] Sodium [Moles/Vol] 137 mmol/L Normal 136-144 [facility] Comment on above: Order Comment: Speci men Type: ARTERIAL BLOOD SPECIMENOrdering Facility: [facility] Address: [address] [place] [address] Performed By: #### A LLBG ####[facility] LABCLIA [id number] [place] [address] [place] Base deficit (BldA) [Moles/Vol] -1 mmol/L Normal -2-0 [facility] Comment on above: Order Comment: Speci men Type: ARTERIAL BLOOD SPECIMENOrdering Facility: [facility] Address: [address] [place] [address] Performed By: #### A LLBG ####[facility] LABCLIA [id number] [place] [address] [place] Body temperature 98.24 [degF] Normal [facility] Comment on above: Order Comment: Speci men Type: ARTERIAL BLOOD SPECIMENOrdering Facility: [facility] Address: [address] [place] [address] Performed By: #### A LLBG ####[facility] [id number] [place] [address] [place] Calcium.ionized (Bld) [Mass/Vol] 1.15 mmol/L Normal 1.08-1.30 [facility] Comment on above: Order Comment: Speci men Type: ARTERIAL BLOOD SPECIMENOrdering Facility: [facility] Address: [address] [place] [address] Performed By: #### A LLBG ####[facility] [id number] [place] [address] [place] Calcium.ionized adjusted to pH 7.4 (BldA) [Moles/Vol] 1.14 mmol/L Normal 1.08-1.30 [facility] Comment on above: Order Comment: Speci men Type: ARTERIAL BLOOD SPECIMENOrdering Facility: [facility] Address: [address] [place] [address] Performed By: #### A LLBG ####[facility] [id number] [place] [address] [place] Carboxyhemoglobin (BldA) [Mass fraction] 1.6 % Normal 0.0-2.0 [facility] Comment on above: Order Comment: Speci men Type: ARTERIAL BLOOD SPECIMENOrdering Facility: [facility] Address: [address] [place] [address] Result Comment: Carb oxyhemoglobin Reference Range for Smokers: 2.0-8.0% Performed By: #### A LLBG ####[facility] [id number] [place] [address] [place] CO2 (Bld) [Partial pressure] 41 mm Hg Normal 36-46 [facility] Comment on above: Order Comment: Speci men Type: ARTERIAL BLOOD SPECIMENOrdering Facility: [facility] Address: [address] [place] [address] Performed By: #### A LLBG ####[facility] LABCLIA [id number] [place] [address] [place] CO2 adjusted to patient's actual temperature (Bld) [Partial pressure] 41 mmHg Normal 36-46 [facility] Comment on above: Order Comment: Speci men Type: ARTERIAL BLOOD SPECIMENOrdering Facility: [facility] Address: [address] [place] [address] Performed By: #### A LLBG ####[facility] LABCLIA [id number] [place] [address] [place] Glucose [Mass/Vol] 176 mg/dL High 60-105 [facility] Comment on above: Order Comment: Speci men Type: ARTERIAL BLOOD SPECIMENOrdering Facility: [facility] Address: [address] [place] [address] Performed By: #### A LLBG ####[facility] LABCLIA [id number] [place] [address] [place] HCO3 (Bld) [Moles/Vol] 24 mmol/L Normal 22-26 [facility] Comment on above: Order Comment: Speci men Type: ARTERIAL BLOOD SPECIMENOrdering Facility: [facility] Address: [address] [place] [address] Performed By: #### A LLBG ####[facility] LABCLIA [id number] [place] [address] [place] Hematocrit (Bld) [Volume fraction] 29.0 % Low 39.0-51.0 [facility] Comment on above: Order Comment: Speci men Type: ARTERIAL BLOOD SPECIMENOrdering Facility: [facility] Address: [address] [place] [address] Performed By: #### A LLBG ####[facility] LABCLIA [id number] [place] [address] [place] Hemoglobin (Bld) [Mass/Vol] 9.4 g/dL Low 13.0-17.0 [facility] Comment on above: Order Comment: Speci men Type: ARTERIAL BLOOD SPECIMENOrdering Facility: [facility] Address: [address] [place] [address] Performed By: #### A LLBG ####[facility] LABCLIA [id number] [place] [address] [place] Lactate [Moles/Vol] 0.7 mmol/L Normal 0.5-2.2 [facility] Comment on above: Order Comment: Speci men Type: ARTERIAL BLOOD SPECIMENOrdering Facility: [facility] Address: [address] [place] [address] Performed By: #### A LLBG ####[facility] LABIA [id number] [place] [address] [place] LITERS 4 Liters/min Normal [facility] Comment on above: Order Comment: Speci men Type: ARTERIAL BLOOD SPECIMENOrdering Facility: [facility] Address: [address] [place] [address] Performed By: #### A LLBG ####[facility] LABIA [id number] [place] [address] [place] Methemoglobin (Bld) [Mass fraction] 0.8 % Normal 0.0-1.5 [facility] Comment on above: Order Comment: Speci men Type: ARTERIAL BLOOD SPECIMENOrdering Facility: [facility] Address: [address] [place] [address] Performed By: #### A LLBG ####[facility] LABCLIA [id number] [place] [address] [place] O2 THERAPY NC = Nasal Cannula Normal [facility] Comment on above: Order Comment: Speci men Type: ARTERIAL BLOOD SPECIMENOrdering Facility: [facility] Address: [address] [place] [address] Performed By: #### A LLBG ####[facility] LABCLIA [id number] [address] [address] [place] Oxygen (Bld) [Partial pressure] 147 mm Hg High 85-95 [facility] Comment on above: Order Comment: Speci men Type: ARTERIAL BLOOD SPECIMENOrdering Facility: [facility] Address: [address] [place] [address] Performed By: #### A LLBG ####[facility] LABCLIA [id number] [place] [address] [place] Oxygen adjusted to patient's actual temperature (Bld) [Partial pressure] 146 mmHg High 85-95 [facility] Comment on above: Order Comment: Speci men Type: ARTERIAL BLOOD SPECIMENOrdering Facility: [facility] Address: [address] [place] [address] Performed By: #### A LLBG ####[facility] LABCLIA [id number] [place] [address] [place] Oxyhemoglobin (BldA) [Mass fraction] 97 % Normal 95-98 [facility] Comment on above: Order Comment: Speci men Type: ARTERIAL BLOOD SPECIMENOrdering Facility: [facility] Address: [address] [place] [address] Performed By: #### A LLBG ####[facility] LABCLIA [id number] [place] [address] [place] pH (Bld) 7.38 [pH] Normal 7.35-7.45 [facility] Comment on above: Order Comment: Speci men Type: ARTERIAL BLOOD SPECIMENOrdering Facility: [facility] Address: [address] [place] [address] Performed By: #### A LLBG ####[facility] LABCLIA [id number] [place] [address] [place] pH adjusted to patient's actual temperature (Bld) 7.38 Normal 7.35-7.45 [facility] Comment on above: Order Comment: Speci men Type: ARTERIAL BLOOD SPECIMENOrdering Facility: [facility] Address: [address] [place] [address] Performed By: #### A LLBG ####[facility] LABCLIA [id number] [place] [address] [place] Potassium [Moles/Vol] 4.1 mmol/L Normal 3.5-5.0 [facility] Comment on above: Order Comment: Speci men Type: ARTERIAL BLOOD SPECIMENOrdering Facility: [facility] Address: [address] [place] [address] Performed By: #### A LLBG ####[facility] LABIA [id number] [place] [address] [place] Sodium [Moles/Vol] 137 mmol/L Normal 136-144 [facility] Comment on above: Order Comment: Speci men Type: ARTERIAL BLOOD SPECIMENOrdering Facility: [facility] Address: [address] [place] [address] Performed By: #### A LLBG ####[facility] LABCLIA [id number] [place] [address] [place] CASE MGT INIT ASSESon 2022 CASE MGT INIT ASSES Normal [facility] CBC panel Auto (Bld)on 10-29 Erythrocyte distribution width (RBC) [Ratio] 16.8 % High 11.5-15.0 [facility] Comment on above: Order Comment: Speci men Type: BLOOD SPECIMENOrdering Facility: [facility] Address: [address] [place] [address] Performed By: #### 5 8410-2 ####[facility] LABIA [id number] [place] [address] [place] Hematocrit (Bld) [Volume fraction] 30.4 % Low 39.0-51.0 [facility] Comment on above: Order Comment: Speci men Type: BLOOD SPECIMENOrdering Facility: [facility] Address: [address] [place] [address] Performed By: #### 5 8410-2 ####[facility] LABCLIA [id number] [place] [address] [place] Hemoglobin (Bld) [Mass/Vol] 9.5 g/dL Low 13.0-17.0 [facility] Comment on above: Order Comment: Speci men Type: BLOOD SPECIMENOrdering Facility: [facility] Address: [address] [place] [address] Performed By: #### 5 8410-2 ####[facility] LABCLIA [id number] [place] [address] [place] MCH (RBC) [Entitic mass] 26.5 pg Normal 26.0-34.0 [facility] Comment on above: Order Comment: Speci men Type: BLOOD SPECIMENOrdering Facility: [facility] Address: [address] [place] [address] Performed By: #### 5 8410-2 ####[facility] LABIA [id number] [place] [address] [place] MCHC (RBC) [Mass/Vol] 31.3 g/dL Normal 30.5-36.0 [facility] Comment on above: Order Comment: Speci men Type: BLOOD SPECIMENOrdering Facility: [facility] Address: [address] [place] [address] Performed By: #### 5 8410-2 ####[facility] [facility] LABIA [id number] [place] [address] [place] MCV (RBC) [Entitic vol] 84.9 fL Normal 80.0-100.0 [facility] Comment on above: Order Comment: Speci men Type: BLOOD SPECIMENOrdering Facility: [facility] Address: [address] [place] [address] Performed By: #### 5 8410-2 ####[facility] LABIA [id number] [place] [address] [place] Nucleated RBC (Bld) [#/Vol] 10*3/uL Normal <0.01 [facility] Comment on above: Order Comment: Speci men Type: BLOOD SPECIMENOrdering Facility: [facility] Address: [address] [place] [address] Performed By: #### 5 8410-2 ####[facility] LABCLIA [id number] [place] [address] [place] Platelet mean volume (Bld) [Entitic vol] 11.7 fL Normal 9.0-12.7 [facility] Comment on above: Order Comment: Speci men Type: BLOOD SPECIMENOrdering Facility: [facility] Address: [address] [place] [address] Performed By: #### 5 8410-2 ####[facility] LABCLIA [id number] [place] [address] [place] Platelets (Bld) [#/Vol] 143 10*3/uL Low 150-400 [facility] Comment on above: Order Comment: Speci men Type: BLOOD SPECIMENOrdering Facility: [facility] Address: [address] [place] [address] Performed By: #### 5 8410-2 ####[facility] LABCLIA [id number] [place] [address] [place] RBC (Bld) [#/Vol] 3.58 10*6/uL Low 4.20-6.00 [facility] Comment on above: Order Comment: Speci men Type: BLOOD SPECIMENOrdering Facility: [facility] Address: [address] [place] [address] Performed By: #### 5 8410-2 ####[facility] LABCLIA [id number] [place] [address] [place] WBC (Bld) [#/Vol] 14.44 10*3/uL High 3.70-11.00 [facility] Comment on above: Order Comment: Speci men Type: BLOOD SPECIMENOrdering Facility: [facility] Address: [address] [place] [address] Performed By: #### 5 8410-2 ####[facility] LABCLIA [id number] [place] [address] [place] Comprehensive metabolic 2000 panelon 10-29-2023 Albumin [Mass/Vol] 3.6 g/dL Low 3.9-4.9 [facility] Comment on above: Order Comment: Speci men Type: BLOOD SPECIMENOrdering Facility: [facility] Address: [address] [place] [address] Performed By: #### H STNT, 81737-1 ####[facility] LABCLIA [id number] [place] [address] [place] ALP [Catalytic activity/Vol] 57 U/L Normal 38-113 [facility] Comment on above: Order Comment: Speci men Type: BLOOD SPECIMENOrdering Facility: [facility] Address: [address] [place] [address] Performed By: #### H STNT, 10615-0 ####[facility] LABIA [id number] [place] [address] [place] ALT [Catalytic activity/Vol] 14 U/L Normal 10-54 [facility] Comment on above: Order Comment: Speci men Type: BLOOD SPECIMENOrdering Facility: [facility] Address: [address] [place] [address] Performed By: #### H STNT, ####[facility] LABCLIA [id number] [place] [address] [place] Anion gap [Moles/Vol] 11 mmol/L Normal 9-18 [facility] Comment on above: Order Comment: Speci men Type: BLOOD SPECIMENOrdering Facility: [facility] Address: [address] [place] [address] Performed By: #### H STNT, ####[facility] LABCLIA [id number] [place] [address] [place] AST [Catalytic activity/Vol] 28 U/L Normal 14-40 [facility] Comment on above: Order Comment: Speci men Type: BLOOD SPECIMENOrdering Facility: [facility] Address: [address] [place] [address] Performed By: #### H STNT, 59251-4 ####[facility] LABCLIA [id number] [place] [address] [place] Bilirubin [Mass/Vol] 0.6 mg/dL Normal 0.2-1.3 [facility] Comment on above: Order Comment: Speci men Type: BLOOD SPECIMENOrdering Facility: [facility] Address: [address] [place] [address] Performed By: #### H STNT, 11284-4 ####[facility] LABCLIA [id number] [place] [address] [place] Calcium [Mass/Vol] 8.3 mg/dL Low 8.5-10.2 [facility] Comment on above: Order Comment: Speci men Type: BLOOD SPECIMENOrdering Facility: [facility] Address: [address] [place] [address] Performed By: #### H STNT, 14268-5 ####[facility] LABCLIA [id number] [place] [address] [place] Chloride [Moles/Vol] 104 mmol/L Normal 97-105 [facility] Comment on above: Order Comment: Speci men Type: BLOOD SPECIMENOrdering Facility: [facility] Address: [address] [place] [address] Performed By: #### H STNT, 06923-9 ####[facility] LABCLIA [id number] [place] [address] [place] CO2 [Moles/Vol] 23 mmol/L Normal 22-30 [facility] Comment on above: Order Comment: Speci men Type: BLOOD SPECIMENOrdering Facility: [facility] Address: [address] [place] [address] Performed By: #### H STNT, 44897-8 ####[facility] LABIA [id number] [place] [address] [place] Creatinine [Mass/Vol] 1.14 mg/dL Normal 0.73-1.22 [facility] Comment on above: Order Comment: Speci men Type: BLOOD SPECIMENOrdering Facility: [facility] Address: [address] [place] [address] Performed By: #### H STNT, ####[facility] LABIA [id number] [place] [address] [place] Creatinine and Glomerular filtration rate.predicted panel (S/P/Bld) 71 mL/min/1.73m??? Normal >=60 [facility] Comment on above: Order Comment: Speci men Type: BLOOD SPECIMENOrdering Facility: [facility] Address: [address] [place] [address] Result Comment: Gisselle mated Glomerular Filtration Rate [...] reflect actual GFR. Performed By: #### H STNT, 81599-1 ####[facility] LABIA [id number] [place] [address] [place] Glucose [Mass/Vol] 172 mg/dL High 74-99 [facility] Comment on above: Order Comment: Speci men Type: BLOOD SPECIMENOrdering Facility: [facility] Address: [address] [place] [address] Result Comment: The [place] [employer] (ADA) provides guidance for cutoff [...] Standards of Medical Care in Diabetes 2016, [place] [employer]. Diabetes Care. 2016.39(Suppl 1). Performed By: #### H STNT, ####[facility] LABCLIA [id number] [place] [address] [place] Potassium [Moles/Vol] 4.2 mmol/L Normal 3.7-5.1 [facility] Comment on above: Order Comment: Speci men Type: BLOOD SPECIMENOrdering Facility: [facility] Address: [address] [place] [address] Performed By: #### H STNT, ####[facility] LABCLIA [id number] [place] [address] [place] Protein [Mass/Vol] 5.0 g/dL Low 6.3-8.0 [facility] Comment on above: Order Comment: Speci men Type: BLOOD SPECIMENOrdering Facility: [facility] Address: [address] [place] [address] Performed By: #### H STNT, ####[facility] LABCLIA [id number] [place] [address] [place] Sodium [Moles/Vol] 138 mmol/L Normal 136-144 [facility] Comment on above: Order Comment: Speci men Type: BLOOD SPECIMENOrdering Facility: [facility] Address: [address] [place] [address] Performed By: #### H STNT, ####[facility] LABCLIA [id number] [place] [address] [place] Urea nitrogen [Mass/Vol] 22 mg/dL Normal 9-24 [facility] Comment on above: Order Comment: Speci men Type: BLOOD SPECIMENOrdering Facility: [facility] Address: [address] [place] [address] Performed By: #### H STNT, 14728-1 ####[facility] [id number] [place] [address] [place] HIGH SENSITIVITY TROPONIN To n 10-29-2023 Troponin T.cardiac High sensitivity method [Mass/Vol] 523 ng/L High <12 [facility] Comment on above: Order Comment: Speci men Type: BLOOD SPECIMENOrdering Facility: [facility] Address: [address] [place] [address] Result Comment: When assessing risk for acute [...] for 30 day MACE. Performed By: #### Cordell STNT, 80179-1 ####[facility] [id number] [place] [address] [place] XR ABDOMEN 1V SUPINEon 10-29 XR ABDOMEN 1V SUPINE Normal [facility] XR CHEST 1V FRONTAL PORTon 1 12-30-2022 XR CHEST 1V FRONTAL PORT Normal [facility] ANES POSTPROC EVALon 023 ANES POSTPROC EVAL Normal [facility] ANES PRE-OPon 10-28-2023 ANES PRE-OP Normal [facility] ARTERIAL BLOOD GASESon 10-28 Base deficit (BldA) [Moles/Vol] -1 mmol/L Normal -2-0 [facility] Comment on above: Order Comment: Speci men Type: ARTERIAL BLOOD SPECIMENOrdering Facility: [facility] Address: [address] [place] [address] Performed By: #### A LLBG ####[facility] LABIA [id number] [place] [address] [place] Body temperature 97.88 [degF] Normal [facility] Comment on above: Order Comment: Speci men Type: ARTERIAL BLOOD SPECIMENOrdering Facility: [facility] Address: [address] [place] [address] Performed By: #### A LLBG ####[facility] LABIA [id number] [place] [address] [place] Calcium.ionized (Bld) [Mass/Vol] 1.18 mmol/L Normal 1.08-1.30 [facility] Comment on above: Order Comment: Speci men Type: ARTERIAL BLOOD SPECIMENOrdering Facility: [facility] Address: [address] [place] [address] Performed By: #### A LLBG ####[facility] LABIA [id number] [place] [address] [place] Calcium.ionized adjusted to pH 7.4 (BldA) [Moles/Vol] 1.17 mmol/L Normal 1.08-1.30 [facility] Comment on above: Order Comment: Speci men Type: ARTERIAL BLOOD SPECIMENOrdering Facility: [facility] Address: [address] [place] [address] Performed By: #### A LLBG ####[facility] LABIA [id number] [place] [address] [place] Carboxyhemoglobin (BldA) [Mass fraction] 1.5 % Normal 0.0-2.0 [facility] Comment on above: Order Comment: Speci men Type: ARTERIAL BLOOD SPECIMENOrdering Facility: [facility] Address: [address] [place] [address] Result Comment: Carb oxyhemoglobin Reference Range for Smokers: 2.0-8.0% Performed By: #### A LLBG ####[facility] LABCLIA [id number] [place] [address] [place] CO2 (Bld) [Partial pressure] 43 mm Hg Normal 36-46 [facility] Comment on above: Order Comment: Speci men Type: ARTERIAL BLOOD SPECIMENOrdering Facility: [facility] Address: [address] [place] [address] Performed By: #### A LLBG ####[facility] LABCLIA [id number] [place] [address] [place] CO2 adjusted to patient's actual temperature (Bld) [Partial pressure] 42 mmHg Normal 36-46 [facility] Comment on above: Order Comment: Speci men Type: ARTERIAL BLOOD SPECIMENOrdering Facility: [facility] Address: [address] [place] [address] Performed By: #### A LLBG ####[facility] LABCLIA [id number] [place] [address] [place] FIO2 30 % Normal [facility] Comment on above: Order Comment: Speci men Type: ARTERIAL BLOOD SPECIMENOrdering Facility: [facility] Address: [address] [place] [address] Performed By: #### A LLBG ####[facility] LABCLIA [id number] [place] [address] [place] Glucose [Mass/Vol] 171 mg/dL High 60-105 [facility] Comment on above: Order Comment: Speci men Type: ARTERIAL BLOOD SPECIMENOrdering Facility: [facility] Address: [address] [place] [address] Performed By: #### A LLBG ####[facility] LABCLIA [id number] [place] [address] [place] HCO3 (Bld) [Moles/Vol] 24 mmol/L Normal 22-26 [facility] Comment on above: Order Comment: Speci men Type: ARTERIAL BLOOD SPECIMENOrdering Facility: [facility] Address: [address] [place] [address] Performed By: #### A LLBG ####[facility] LABCLIA [id number] [place] [address] [place] Hematocrit (Bld) [Volume fraction] 29.8 % Low 39.0-51.0 [facility] Comment on above: Order Comment: Speci men Type: ARTERIAL BLOOD SPECIMENOrdering Facility: [facility] Address: [address] [place] [address] Performed By: #### A LLBG ####[facility] LABIA [id number] [place] [address] [place] Hemoglobin (Bld) [Mass/Vol] 9.6 g/dL Low 13.0-17.0 [facility] Comment on above: Order Comment: Speci men Type: ARTERIAL BLOOD SPECIMENOrdering Facility: [facility] Address: [address] [place] [address] Performed By: #### A LLBG ####[facility] LABIA [id number] [place] [address] [place] Lactate [Moles/Vol] 0.9 mmol/L Normal 0.5-2.2 [facility] Comment on above: Order Comment: Speci men Type: ARTERIAL BLOOD SPECIMENOrdering Facility: [facility] Address: [address] [place] [address] Performed By: #### A LLBG ####[facility] LABCLIA [id number] [place] [address] [place] Methemoglobin (Bld) [Mass fraction] 0.9 % Normal 0.0-1.5 [facility] Comment on above: Order Comment: Speci men Type: ARTERIAL BLOOD SPECIMENOrdering Facility: [facility] Address: [address] [place] [address] Performed By: #### A LLBG ####[facility] LABCLIA [id number] [address] [id number] [address] [place] O2 THERAPY Ventilator Normal [facility] Comment on above: Order Comment: Speci men Type: ARTERIAL BLOOD SPECIMENOrdering Facility: [facility] Address: [address] [place] [address] Result Comment: CPAP settings Performed By: #### A LLBG ####[facility] LABCLIA [id number] [place] [address] [place] Oxygen (Bld) [Partial pressure] 121 mm Hg High 85-95 [facility] Comment on above: Order Comment: Speci men Type: ARTERIAL BLOOD SPECIMENOrdering Facility: [facility] Address: [address] [place] [address] Performed By: #### A LLBG ####[facility] LABCLIA [id number] [place] [address] [place] Oxygen adjusted to patient's actual temperature (Bld) [Partial pressure] 119 mmHg High 85-95 [facility] Comment on above: Order Comment: Speci men Type: ARTERIAL BLOOD SPECIMENOrdering Facility: [facility] Address: [address] [place] [address] Performed By: #### A LLBG ####[facility] LABCLIA [id number] [place] [address] [place] Oxyhemoglobin (BldA) [Mass fraction] 96 % Normal 95-98 [facility] Comment on above: Order Comment: Speci men Type: ARTERIAL BLOOD SPECIMENOrdering Facility: [facility] Address: [address] [place] [address] Performed By: #### A LLBG ####[facility] LABCLIA [id number] [place] [address] [place] pH (Bld) 7.37 [pH] Normal 7.35-7.45 [facility] Comment on above: Order Comment: Speci men Type: ARTERIAL BLOOD SPECIMENOrdering Facility: [facility] Address: [address] [place] [address] Performed By: #### A LLBG ####[facility] LABCLIA [id number] [place] [address] [place] pH adjusted to patient's actual temperature (Bld) 7.38 Normal 7.35-7.45 [facility] Comment on above: Order Comment: Speci men Type: ARTERIAL BLOOD SPECIMENOrdering Facility: [facility] Address: [address] [place] [address] Performed By: #### A LLBG ####[facility] LABCLIA [id number] [place] [address] [place] PO2 / FIO2 RATIO 403 mmHg Normal >300 [facility] Comment on above: Order Comment: Speci men Type: ARTERIAL BLOOD SPECIMENOrdering Facility: [facility] Address: [address] [place] [address] Performed By: #### A LLBG ####[facility] LABCLIA [id number] [place] [address] [place] Potassium [Moles/Vol] 4.2 mmol/L Normal 3.5-5.0 [facility] Comment on above: Order Comment: Speci men Type: ARTERIAL BLOOD SPECIMENOrdering Facility: [facility] Address: [address] [place] [address] Performed By: #### A LLBG ####[facility] LABCLIA [id number] [place] [address] [place] Sodium [Moles/Vol] 137 mmol/L Normal 136-144 [facility] Comment on above: Order Comment: Speci men Type: ARTERIAL BLOOD SPECIMENOrdering Facility: [facility] Address: [address] [place] [address] Performed By: #### A LLBG ####[facility] LABCLIA [id number] [place] [address] [place] Base excess Calc (Bld) [Moles/Vol] 1 mmol/L Normal 0-2 [facility] Comment on above: Order Comment: Speci men Type: ARTERIAL BLOOD SPECIMENOrdering Facility: [facility] Address: [address] [place] [address] Performed By: #### A LLBG ####[facility] LABIA [id number] [place] [address] [place] Body temperature 97.7 [degF] Normal [facility] Comment on above: Order Comment: Speci men Type: ARTERIAL BLOOD SPECIMENOrdering Facility: [facility] Address: [address] [place] [address] Performed By: #### A LLBG ####[facility] LABIA [id number] [place] [address] [place] Calcium.ionized (Bld) [Mass/Vol] 1.18 mmol/L Normal 1.08-1.30 [facility] Comment on above: Order Comment: Speci men Type: ARTERIAL BLOOD SPECIMENOrdering Facility: [facility] Address: [address] [place] [address] Performed By: #### A LLBG ####[facility] LABIA [id number] [place] [address] [place] Calcium.ionized adjusted to pH 7.4 (BldA) [Moles/Vol] 1.16 mmol/L Normal 1.08-1.30 [facility] Comment on above: Order Comment: Speci men Type: ARTERIAL BLOOD SPECIMENOrdering Facility: [facility] Address: [address] [place] [address] Performed By: #### A LLBG ####[facility] LABIA [id number] [place] [address] [place] Carboxyhemoglobin (BldA) [Mass fraction] 1.1 % Normal 0.0-2.0 [facility] Comment on above: Order Comment: Speci men Type: ARTERIAL BLOOD SPECIMENOrdering Facility: [facility] Address: [address] [place] [address] Result Comment: Carb oxyhemoglobin Reference Range for Smokers: 2.0-8.0% Performed By: #### A LLBG ####[facility] LABCLIA [id number] [place] [address] [place] CO2 (Bld) [Partial pressure] 47 mm Hg High 36-46 [facility] Comment on above: Order Comment: Speci men Type: ARTERIAL BLOOD SPECIMENOrdering Facility: [facility] Address: [address] [place] [address] Performed By: #### A LLBG ####[facility] LABCLIA [id number] [place] [address] [place] CO2 adjusted to patient's actual temperature (Bld) [Partial pressure] 46 mmHg Normal 36-46 [facility] Comment on above: Order Comment: Speci men Type: ARTERIAL BLOOD SPECIMENOrdering Facility: [facility] Address: [address] [place] [address] Performed By: #### A LLBG ####[facility] LABCLIA [id number] [place] [address] [place] FIO2 40 % Normal [facility] Comment on above: Order Comment: Speci men Type: ARTERIAL BLOOD SPECIMENOrdering Facility: [facility] Address: [address] [place] [address] Performed By: #### A LLBG ####[facility] LABCLIA [id number] [place] [address] [place] Glucose [Mass/Vol] 130 mg/dL High 60-105 [facility] Comment on above: Order Comment: Speci men Type: ARTERIAL BLOOD SPECIMENOrdering Facility: [facility] Address: [address] [place] [address] Performed By: #### A LLBG ####[facility] LABCLIA [id number] [place] [address] [place] HCO3 (Bld) [Moles/Vol] 26 mmol/L Normal 22-26 [facility] Comment on above: Order Comment: Speci men Type: ARTERIAL BLOOD SPECIMENOrdering Facility: [facility] Address: [address] [place] [address] Performed By: #### A LLBG ####[facility] LABIA [id number] [place] [address] [place] Hematocrit (Bld) [Volume fraction] 30.0 % Low 39.0-51.0 [facility] Comment on above: Order Comment: Speci men Type: ARTERIAL BLOOD SPECIMENOrdering Facility: [facility] Address: [address] [place] [address] Performed By: #### A LLBG ####[facility] LABIA [id number] [place] [address] [place] Hemoglobin (Bld) [Mass/Vol] 9.7 g/dL Low 13.0-17.0 [facility] Comment on above: Order Comment: Speci men Type: ARTERIAL BLOOD SPECIMENOrdering Facility: [facility] Address: [address] [place] [address] Performed By: #### A LLBG ####[facility] LABIA [id number] [place] [address] [place] Lactate [Moles/Vol] 0.9 mmol/L Normal 0.5-2.2 [facility] Comment on above: Order Comment: Speci men Type: ARTERIAL BLOOD SPECIMENOrdering Facility: [facility] Address: [address] [place] [address] Performed By: #### A LLBG ####[facility] LABIA [id number] [place] [address] [place] Methemoglobin (Bld) [Mass fraction] 1.2 % Normal 0.0-1.5 [facility] Comment on above: Order Comment: Speci men Type: ARTERIAL BLOOD SPECIMENOrdering Facility: [facility] Address: [address] [place] [address] Performed By: #### A LLBG ####[facility] LABCLIA [id number] [address] [address] [place] O2 THERAPY Ventilator Normal [facility] Comment on above: Order Comment: Speci men Type: ARTERIAL BLOOD SPECIMENOrdering Facility: [facility] Address: [address] [place] [address] Performed By: #### A LLBG ####[facility] LABCLIA [id number] [place] [address] [place] Oxygen (Bld) [Partial pressure] 140 mm Hg High 85-95 [facility] Comment on above: Order Comment: Speci men Type: ARTERIAL BLOOD SPECIMENOrdering Facility: [facility] Address: [address] [place] [address] Performed By: #### A LLBG ####[facility] LABCLIA [id number] [place] [address] [place] Oxygen adjusted to patient's actual temperature (Bld) [Partial pressure] 137 mmHg High 85-95 [facility] Comment on above: Order Comment: Speci men Type: ARTERIAL BLOOD SPECIMENOrdering Facility: [facility] Address: [address] [place] [address] Performed By: #### A LLBG ####[facility] LABCLIA [id number] [place] [id number] [place] Oxyhemoglobin (BldA) [Mass fraction] 96 % Normal 95-98 [facility] Comment on above: Order Comment: Speci men Type: ARTERIAL BLOOD SPECIMENOrdering Facility: [facility] Address: [address] [place] [address] Performed By: #### A LLBG ####[facility] LABCLIA [id number] [place] [address] [place] pH (Bld) 7.36 [pH] Normal 7.35-7.45 [facility] Comment on above: Order Comment: Speci men Type: ARTERIAL BLOOD SPECIMENOrdering Facility: [facility] Address: [address] [place] [address] Performed By: #### A LLBG ####[facility] LABCLIA [id number] [place] [address] [place] pH adjusted to patient's actual temperature (Bld) 7.37 Normal 7.35-7.45 [facility] Comment on above: Order Comment: Speci men Type: ARTERIAL BLOOD SPECIMENOrdering Facility: [facility] Address: [address] [place] [address] Performed By: #### A LLBG ####[facility] LABCLIA [id number] [place] [address] [place] PO2 / FIO2 RATIO 350 mmHg Normal >300 [facility] Comment on above: Order Comment: Speci men Type: ARTERIAL BLOOD SPECIMENOrdering Facility: [facility] Address: [address] [place] [address] Performed By: #### A LLBG ####[facility] LABCLIA [id number] [place] [address] [place] Potassium [Moles/Vol] 4.3 mmol/L Normal 3.5-5.0 [facility] Comment on above: Order Comment: Speci men Type: ARTERIAL BLOOD SPECIMENOrdering Facility: [facility] Address: [address] [place] [address] Performed By: #### A LLBG ####[facility] LABCLIA [id number] [place] [address] [place] Sodium [Moles/Vol] 139 mmol/L Normal 136-144 [facility] Comment on above: Order Comment: Speci men Type: ARTERIAL BLOOD SPECIMENOrdering Facility: [facility] Address: [address] [place] [address] Performed By: #### A LLBG ####[facility] LABCLIA [id number] [place] [address] [place] Base excess Calc (Bld) [Moles/Vol] 1 mmol/L Normal 0-2 [facility] Comment on above: Order Comment: Speci men Type: ARTERIAL BLOOD SPECIMENOrdering Facility: [facility] Address: [address] [place] [address] Performed By: #### A LLBG ####[facility] LABIA [id number] [place] [address] [place] Body temperature 97.52 [degF] Normal [facility] Comment on above: Order Comment: Speci men Type: ARTERIAL BLOOD SPECIMENOrdering Facility: [facility] Address: [address] [place] [address] Performed By: #### A LLBG ####[facility] LABIA [id number] [place] [address] [place] Calcium.ionized (Bld) [Mass/Vol] 1.16 mmol/L Normal 1.08-1.30 [facility] Comment on above: Order Comment: Speci men Type: ARTERIAL BLOOD SPECIMENOrdering Facility: [facility] Address: [address] [place] [address] Performed By: #### A LLBG ####[facility] [id number] [place] [address] [place] Calcium.ionized adjusted to pH 7.4 (BldA) [Moles/Vol] 1.14 mmol/L Normal 1.08-1.30 [facility] Comment on above: Order Comment: Speci men Type: ARTERIAL BLOOD SPECIMENOrdering Facility: [facility] Address: [address] [place] [address] Performed By: #### A LLBG ####[facility] LABIA [id number] [place] [address] [place] Carboxyhemoglobin (BldA) [Mass fraction] 1.4 % Normal 0.0-2.0 [facility] Comment on above: Order Comment: Speci men Type: ARTERIAL BLOOD SPECIMENOrdering Facility: [facility] Address: [address] [place] [address] Result Comment: Carb oxyhemoglobin Reference Range for Smokers: 2.0-8.0% Performed By: #### A LLBG ####[facility] LABCLIA [id number] [place] [address] [place] CO2 (Bld) [Partial pressure] 48 mm Hg High 36-46 [facility] Comment on above: Order Comment: Speci men Type: ARTERIAL BLOOD SPECIMENOrdering Facility: [facility] Address: [address] [place] [address] Performed By: #### A LLBG ####[facility] LABCLIA [id number] [place] [address] [place] CO2 adjusted to patient's actual temperature (Bld) [Partial pressure] 46 mmHg Normal 36-46 [facility] Comment on above: Order Comment: Speci men Type: ARTERIAL BLOOD SPECIMENOrdering Facility: [facility] Address: [address] [place] [address] Performed By: #### A LLBG ####[facility] LABCLIA [id number] [place] [address] [place] Glucose [Mass/Vol] 138 mg/dL High 60-105 [facility] Comment on above: Order Comment: Speci men Type: ARTERIAL BLOOD SPECIMENOrdering Facility: [facility] Address: [address] [place] [address] Performed By: #### A LLBG ####[facility] LABCLIA [id number] [place] [address] [place] HCO3 (Bld) [Moles/Vol] 27 mmol/L High 22-26 [facility] Comment on above: Order Comment: Speci men Type: ARTERIAL BLOOD SPECIMENOrdering Facility: [facility] Address: [address] [place] [address] Performed By: #### A LLBG ####[facility] LABIA [id number] [place] [id number] [place] Hematocrit (Bld) [Volume fraction] 28.8 % Low 39.0-51.0 [facility] Comment on above: Order Comment: Speci men Type: ARTERIAL BLOOD SPECIMENOrdering Facility: [facility] Address: [address] [place] [address] Performed By: #### A LLBG ####[facility] LABCLIA [id number] [place] [address] [place] Hemoglobin (Bld) [Mass/Vol] 9.3 g/dL Low 13.0-17.0 [facility] Comment on above: Order Comment: Speci men Type: ARTERIAL BLOOD SPECIMENOrdering Facility: [facility] Address: [address] [place] [address] Performed By: #### A LLBG ####[facility] LABCLIA [id number] [place] [address] [place] Lactate [Moles/Vol] 1.4 mmol/L Normal 0.5-2.2 [facility] Comment on above: Order Comment: Speci men Type: ARTERIAL BLOOD SPECIMENOrdering Facility: [facility] Address: [address] [place] [address] Performed By: #### A LLBG ####[facility] LABCLIA [id number] [place] [address] [place] LITERS 40 Liters/min Normal [facility] Comment on above: Order Comment: Speci men Type: ARTERIAL BLOOD SPECIMENOrdering Facility: [facility] Address: [address] [place] [address] Performed By: #### A LLBG ####[facility] LABCLIA [id number] [place] [address] [place] Methemoglobin (Bld) [Mass fraction] 1.3 % Normal 0.0-1.5 [facility] Comment on above: Order Comment: Speci men Type: ARTERIAL BLOOD SPECIMENOrdering Facility: [facility] Address: [address] [place] [address] Performed By: #### A LLBG ####[facility] LABCLIA [id number] [place] [address] [place] O2 THERAPY Ventilator Normal [facility] Comment on above: Order Comment: Speci men Type: ARTERIAL BLOOD SPECIMENOrdering Facility: [facility] Address: [address] [place] [address] Performed By: #### A LLBG ####[facility] LABCLIA [id number] [place] [id number] [place] Oxygen (Bld) [Partial pressure] 95 mm Hg Normal 85-95 [facility] Comment on above: Order Comment: Speci men Type: ARTERIAL BLOOD SPECIMENOrdering Facility: [facility] Address: [address] [place] [address] Performed By: #### A LLBG ####[facility] LABCLIA [id number] [place] [address] [place] Oxygen adjusted to patient's actual temperature (Bld) [Partial pressure] 92 mmHg Normal 85-95 [facility] Comment on above: Order Comment: Speci men Type: ARTERIAL BLOOD SPECIMENOrdering Facility: [facility] Address: [address] [place] [address] Performed By: #### A LLBG ####[facility] LABCLIA [id number] [place] [id number] [place] Oxyhemoglobin (BldA) [Mass fraction] 95 % Normal 95-98 [facility] Comment on above: Order Comment: Speci men Type: ARTERIAL BLOOD SPECIMENOrdering Facility: [facility] Address: [address] [place] [address] Performed By: #### A LLBG ####[facility] LABCLIA [id number] [address] [address] [place] pH (Bld) 7.36 [pH] Normal 7.35-7.45 [facility] Comment on above: Order Comment: Speci men Type: ARTERIAL BLOOD SPECIMENOrdering Facility: [facility] Address: [address] [place] [address] Performed By: #### A LLBG ####[facility] LABCLIA [id number] [place] [address] [place] pH adjusted to patient's actual temperature (Bld) 7.37 Normal 7.35-7.45 [facility] Comment on above: Order Comment: Speci men Type: ARTERIAL BLOOD SPECIMENOrdering Facility: [facility] Address: [address] [place] [address] Performed By: #### A LLBG ####[facility] LABCLIA [id number] [place] [address] [place] Potassium [Moles/Vol] 3.5 mmol/L Normal 3.5-5.0 [facility] Comment on above: Order Comment: Speci men Type: ARTERIAL BLOOD SPECIMENOrdering Facility: [facility] Address: [address] [place] [address] Performed By: #### A LLBG ####[facility] LABCLIA [id number] [place] [address] [place] Sodium [Moles/Vol] 138 mmol/L Normal 136-144 [facility] Comment on above: Order Comment: Speci men Type: ARTERIAL BLOOD SPECIMENOrdering Facility: [facility] Address: [address] [place] [address] Performed By: #### A LLBG ####[facility] LABCLIA [id number] [place] [address] [place] Base excess Calc (Bld) [Moles/Vol] 2 mmol/L Normal 0-2 [facility] Comment on above: Order Comment: Speci men Type: ARTERIAL BLOOD SPECIMENOrdering Facility: [facility] Address: [address] [place] [address] Performed By: #### A LLBG ####[facility] LABCLIA [id number] [place] [address] [place] Calcium.ionized (Bld) [Mass/Vol] 1.13 mmol/L Normal 1.08-1.30 [facility] Comment on above: Order Comment: Speci men Type: ARTERIAL BLOOD SPECIMENOrdering Facility: [facility] Address: [address] [place] [address] Performed By: #### A LLBG ####[facility] [id number] [place] [address] [place] Calcium.ionized adjusted to pH 7.4 (BldA) [Moles/Vol] 1.12 mmol/L Normal 1.08-1.30 [facility] Comment on above: Order Comment: Speci men Type: ARTERIAL BLOOD SPECIMENOrdering Facility: [facility] Address: [address] [place] [address] Performed By: #### A LLBG ####[facility] [id number] [place] [address] [place] Carboxyhemoglobin (BldA) [Mass fraction] 2.1 % High 0.0-2.0 [facility] Comment on above: Order Comment: Speci men Type: ARTERIAL BLOOD SPECIMENOrdering Facility: [facility] Address: [address] [place] [address] Result Comment: Carb oxyhemoglobin Reference Range for Smokers: 2.0-8.0% Performed By: #### A LLBG ####[facility] [id number] [place] [address] [place] CO2 (Bld) [Partial pressure] 44 mm Hg Normal 36-46 [facility] Comment on above: Order Comment: Speci men Type: ARTERIAL BLOOD SPECIMENOrdering Facility: [facility] Address: [address] [place] [address] Performed By: #### A LLBG ####[facility] [id number] [address] [place] CO2 adjusted to patient's actual temperature (Bld) [Partial pressure] 44 mmHg Normal 36-46 [facility] Comment on above: Order Comment: Speci men Type: ARTERIAL BLOOD SPECIMENOrdering Facility: [facility] Address: [address] [place] [address] Performed By: #### A LLBG ####[facility] LABCLIA [id number] [place] [address] [place] Glucose [Mass/Vol] 175 mg/dL High 60-105 [facility] Comment on above: Order Comment: Speci men Type: ARTERIAL BLOOD SPECIMENOrdering Facility: [facility] Address: [address] [place] [address] Performed By: #### A LLBG ####[facility] LABCLIA [id number] [place] [address] [place] HCO3 (Bld) [Moles/Vol] 26 mmol/L Normal 22-26 [facility] Comment on above: Order Comment: Speci men Type: ARTERIAL BLOOD SPECIMENOrdering Facility: [facility] Address: [address] [place] [address] Performed By: #### A LLBG ####[facility] LABCLIA [id number] [place] [address] [place] Hematocrit (Bld) [Volume fraction] 26.8 % Low 39.0-51.0 [facility] Comment on above: Order Comment: Speci men Type: ARTERIAL BLOOD SPECIMENOrdering Facility: [facility] Address: [address] [place] [address] Performed By: #### A LLBG ####[facility] LABCLIA [id number] [place] [address] [place] Hemoglobin (Bld) [Mass/Vol] 8.6 g/dL Low 13.0-17.0 [facility] Comment on above: Order Comment: Speci men Type: ARTERIAL BLOOD SPECIMENOrdering Facility: [facility] Address: [address] [place] [address] Performed By: #### A LLBG ####[facility] LABCLIA [id number] [place] [address] [place] Lactate [Moles/Vol] 1.4 mmol/L Normal 0.5-2.2 [facility] Comment on above: Order Comment: Speci men Type: ARTERIAL BLOOD SPECIMENOrdering Facility: [facility] Address: [address] [place] [address] Performed By: #### A LLBG ####[facility] LABCLIA [id number] [place] [address] [place] Methemoglobin (Bld) [Mass fraction] 1.5 % Normal 0.0-1.5 [facility] Comment on above: Order Comment: Speci men Type: ARTERIAL BLOOD SPECIMENOrdering Facility: [facility] Address: [address] [place] [address] Performed By: #### A LLBG ####[facility] LABCLIA [id number] [place] [address] [place] Oxygen (Bld) [Partial pressure] 219 mm Hg High 85-95 [facility] Comment on above: Order Comment: Speci men Type: ARTERIAL BLOOD SPECIMENOrdering Facility: [facility] Address: [address] [place] [address] Performed By: #### A LLBG ####[facility] LABCLIA [id number] [place] [address] [place] Oxygen adjusted to patient's actual temperature (Bld) [Partial pressure] 219 mmHg High 85-95 [facility] Comment on above: Order Comment: Speci men Type: ARTERIAL BLOOD SPECIMENOrdering Facility: [facility] Address: [address] [place] [address] Performed By: #### A LLBG ####[facility] LABCLIA [id number] [address] [place] [address] [place] Oxyhemoglobin (BldA) [Mass fraction] 96 % Normal 95-98 [facility] Comment on above: Order Comment: Speci men Type: ARTERIAL BLOOD SPECIMENOrdering Facility: [facility] Address: [address] [place] [address] Performed By: #### A LLBG ####[facility] LABCLIA [id number] [place] [address] [place] pH (Bld) 7.39 [pH] Normal 7.35-7.45 [facility] Comment on above: Order Comment: Speci men Type: ARTERIAL BLOOD SPECIMENOrdering Facility: [facility] Address: [address] [place] [address] Performed By: #### A LLBG ####[facility] LABCLIA [id number] [place] [address] [place] pH adjusted to patient's actual temperature (Bld) 7.39 Normal 7.35-7.45 [facility] Comment on above: Order Comment: Speci men Type: ARTERIAL BLOOD SPECIMENOrdering Facility: [facility] Address: [address] [place] [address] Performed By: #### A LLBG ####[facility] LABCLIA [id number] [place] [address] [place] Potassium [Moles/Vol] 4.0 mmol/L Normal 3.5-5.0 [facility] Comment on above: Order Comment: Speci men Type: ARTERIAL BLOOD SPECIMENOrdering Facility: [facility] Address: [address] [place] [address] Performed By: #### A LLBG ####[facility] LABCLIA [id number] [place] [address] [place] Sodium [Moles/Vol] 137 mmol/L Normal 136-144 [facility] Comment on above: Order Comment: Speci men Type: ARTERIAL BLOOD SPECIMENOrdering Facility: [facility] Address: [address] [place] [address] Performed By: #### A LLBG ####[facility] LABCLIA [id number] [place] [address] [place] Base excess Calc (Bld) [Moles/Vol] 1 mmol/L Normal 0-2 [facility] Comment on above: Order Comment: Speci men Type: ARTERIAL BLOOD SPECIMENOrdering Facility: [facility] Address: [address] [place] [address] Performed By: #### A LLBG ####[facility] LABIA [id number] [place] [address] [place] Calcium.ionized (Bld) [Mass/Vol] 1.14 mmol/L Normal 1.08-1.30 [facility] Comment on above: Order Comment: Speci men Type: ARTERIAL BLOOD SPECIMENOrdering Facility: [facility] Address: [address] [place] [address] Performed By: #### A LLBG ####[facility] LABIA [id number] [place] [address] [place] Calcium.ionized adjusted to pH 7.4 (BldA) [Moles/Vol] 1.14 mmol/L Normal 1.08-1.30 [facility] Comment on above: Order Comment: Speci men Type: ARTERIAL BLOOD SPECIMENOrdering Facility: [facility] Address: [address] [place] [address] Performed By: #### A LLBG ####[facility] LABIA [id number] [place] [address] [place] Carboxyhemoglobin (BldA) [Mass fraction] 1.5 % Normal 0.0-2.0 [facility] Comment on above: Order Comment: Speci men Type: ARTERIAL BLOOD SPECIMENOrdering Facility: [facility] Address: [address] [place] [address] Result Comment: Carb oxyhemoglobin Reference Range for Smokers: 2.0-8.0% Performed By: #### A LLBG ####[facility] LABCLIA [id number] [place] [address] [place] CO2 (Bld) [Partial pressure] 42 mm Hg Normal 36-46 [facility] Comment on above: Order Comment: Speci men Type: ARTERIAL BLOOD SPECIMENOrdering Facility: [facility] Address: [address] [place] [address] Performed By: #### A LLBG ####[facility] LABCLIA [id number] [place] [address] [place] CO2 adjusted to patient's actual temperature (Bld) [Partial pressure] 42 mmHg Normal 36-46 [facility] Comment on above: Order Comment: Speci men Type: ARTERIAL BLOOD SPECIMENOrdering Facility: [facility] Address: [address] [place] [address] Performed By: #### A LLBG ####[facility] LABCLIA [id number] [place] [address] [place] Glucose [Mass/Vol] 209 mg/dL High 60-105 [facility] Comment on above: Order Comment: Speci men Type: ARTERIAL BLOOD SPECIMENOrdering Facility: [facility] Address: [address] [place] [address] Performed By: #### A LLBG ####[facility] LABCLIA [id number] [place] [address] [place] HCO3 (Bld) [Moles/Vol] 25 mmol/L Normal 22-26 [facility] Comment on above: Order Comment: Speci men Type: ARTERIAL BLOOD SPECIMENOrdering Facility: [facility] Address: [address] [place] [address] Performed By: #### A LLBG ####[facility] LABCLIA [id number] [place] [address] [place] Hematocrit (Bld) [Volume fraction] 27.8 % Low 39.0-51.0 [facility] Comment on above: Order Comment: Speci men Type: ARTERIAL BLOOD SPECIMENOrdering Facility: [facility] Address: [address] [place] [address] Performed By: #### A LLBG ####[facility] LABIA [id number] [place] [address] [place] Hemoglobin (Bld) [Mass/Vol] 9.0 g/dL Low 13.0-17.0 [facility] Comment on above: Order Comment: Speci men Type: ARTERIAL BLOOD SPECIMENOrdering Facility: [facility] Address: [address] [place] [address] Performed By: #### A LLBG ####[facility] LABIA [id number] [place] [address] [place] Lactate [Moles/Vol] 1.2 mmol/L Normal 0.5-2.2 [facility] Comment on above: Order Comment: Speci men Type: ARTERIAL BLOOD SPECIMENOrdering Facility: [facility] Address: [address] [place] [address] Performed By: #### A LLBG ####[facility] LABIA [id number] [place] [address] [place] Methemoglobin (Bld) [Mass fraction] 1.1 % Normal 0.0-1.5 [facility] Comment on above: Order Comment: Speci men Type: ARTERIAL BLOOD SPECIMENOrdering Facility: [facility] Address: [address] [place] [address] Performed By: #### A LLBG ####[facility] LABCLIA [id number] [place] [address] [place] Oxygen (Bld) [Partial pressure] 173 mm Hg High 85-95 [facility] Comment on above: Order Comment: Speci men Type: ARTERIAL BLOOD SPECIMENOrdering Facility: [facility] Address: [address] [place] [address] Performed By: #### A LLBG ####[facility] LABCLIA [id number] [place] [address] [place] Oxygen adjusted to patient's actual temperature (Bld) [Partial pressure] 173 mmHg High 85-95 [facility] Comment on above: Order Comment: Speci men Type: ARTERIAL BLOOD SPECIMENOrdering Facility: [facility] Address: [address] [place] [address] Performed By: #### A LLBG ####[facility] LABCLIA [id number] [place] [address] [place] Oxyhemoglobin (BldA) [Mass fraction] 97 % Normal 95-98 [facility] Comment on above: Order Comment: Speci men Type: ARTERIAL BLOOD SPECIMENOrdering Facility: [facility] Address: [address] [place] [address] Performed By: #### A LLBG ####[facility] LABCLIA [id number] [place] [address] [place] pH (Bld) 7.39 [pH] Normal 7.35-7.45 [facility] Comment on above: Order Comment: Speci men Type: ARTERIAL BLOOD SPECIMENOrdering Facility: [facility] Address: [address] [place] [address] Performed By: #### A LLBG ####[facility] LABCLIA [id number] [place] [address] [place] pH adjusted to patient's actual temperature (Bld) 7.39 Normal 7.35-7.45 [facility] Comment on above: Order Comment: Speci men Type: ARTERIAL BLOOD SPECIMENOrdering Facility: [facility] Address: [address] [place] [address] Performed By: #### A LLBG ####[facility] LABCLIA [id number] [place] [address] [place] Potassium [Moles/Vol] 3.7 mmol/L Normal 3.5-5.0 [facility] Comment on above: Order Comment: Speci men Type: ARTERIAL BLOOD SPECIMENOrdering Facility: [facility] Address: [address] [place] [address] Performed By: #### A LLBG ####[facility] LABCLIA [id number] [place] [address] [place] Sodium [Moles/Vol] 135 mmol/L Low 136-144 [facility] Comment on above: Order Comment: Speci men Type: ARTERIAL BLOOD SPECIMENOrdering Facility: [facility] Address: [address] [place] [address] Performed By: #### A LLBG ####[facility] LABCLIA [id number] [place] [address] [place] Base excess Calc (Bld) [Moles/Vol] 2 mmol/L Normal 0-2 [facility] Comment on above: Order Comment: Speci men Type: ARTERIAL BLOOD SPECIMENOrdering Facility: [facility] Address: [address] [place] [address] Performed By: #### A LLBG ####[facility] LABCLIA [id number] [place] [address] [place] Calcium.ionized (Bld) [Mass/Vol] 1.11 mmol/L Normal 1.08-1.30 [facility] Comment on above: Order Comment: Speci men Type: ARTERIAL BLOOD SPECIMENOrdering Facility: [facility] Address: [address] [place] [address] Performed By: #### A LLBG ####[facility] LABCLIA [id number] [place] [address] [place] Calcium.ionized adjusted to pH 7.4 (BldA) [Moles/Vol] 1.11 mmol/L Normal 1.08-1.30 [facility] Comment on above: Order Comment: Speci men Type: ARTERIAL BLOOD SPECIMENOrdering Facility: [facility] Address: [address] [place] [address] Performed By: #### A LLBG ####[facility] LABCLIA [id number] [place] [address] [place] Carboxyhemoglobin (BldA) [Mass fraction] 1.8 % Normal 0.0-2.0 [facility] Comment on above: Order Comment: Speci men Type: ARTERIAL BLOOD SPECIMENOrdering Facility: [facility] Address: [address] [place] [address] Result Comment: Carb oxyhemoglobin Reference Range for Smokers: 2.0-8.0% Performed By: #### A LLBG ####[facility] LABCLIA [id number] [place] [address] [place] CO2 (Bld) [Partial pressure] 42 mm Hg Normal 36-46 [facility] Comment on above: Order Comment: Speci men Type: ARTERIAL BLOOD SPECIMENOrdering Facility: [facility] Address: [address] [place] [address] Performed By: #### A LLBG ####[facility] LABIA [id number] [place] [address] [place] CO2 adjusted to patient's actual temperature (Bld) [Partial pressure] 42 mmHg Normal 36-46 [facility] Comment on above: Order Comment: Speci men Type: ARTERIAL BLOOD SPECIMENOrdering Facility: [facility] Address: [address] [place] [address] Performed By: #### A LLBG ####[facility] LABIA [id number] [place] [address] [place] Glucose [Mass/Vol] 227 mg/dL High 60-105 [facility] Comment on above: Order Comment: Speci men Type: ARTERIAL BLOOD SPECIMENOrdering Facility: [facility] Address: [address] [place] [address] Performed By: #### A LLBG ####[facility] LABIA [id number] [place] [address] [place] HCO3 (Bld) [Moles/Vol] 26 mmol/L Normal 22-26 [facility] Comment on above: Order Comment: Speci men Type: ARTERIAL BLOOD SPECIMENOrdering Facility: [facility] Address: [address] [place] [address] Performed By: #### A LLBG ####[facility] LABCLIA [id number] [place] [address] [place] Hematocrit (Bld) [Volume fraction] 26.9 % Low 39.0-51.0 [facility] Comment on above: Order Comment: Speci men Type: ARTERIAL BLOOD SPECIMENOrdering Facility: [facility] Address: [address] [place] [address] Performed By: #### A LLBG ####[facility] LABCLIA [id number] [place] [address] [place] Hemoglobin (Bld) [Mass/Vol] 8.7 g/dL Low 13.0-17.0 [facility] Comment on above: Order Comment: Speci men Type: ARTERIAL BLOOD SPECIMENOrdering Facility: [facility] Address: [address] [place] [address] Performed By: #### A LLBG ####[facility] LABIA [id number] [place] [address] [place] Lactate [Moles/Vol] 0.9 mmol/L Normal 0.5-2.2 [facility] Comment on above: Order Comment: Speci men Type: ARTERIAL BLOOD SPECIMENOrdering Facility: [facility] Address: [address] [place] [address] Performed By: #### A LLBG ####[facility] LABCLIA [id number] [place] [address] [place] Methemoglobin (Bld) [Mass fraction] 0.5 % Normal 0.0-1.5 [facility] Comment on above: Order Comment: Speci men Type: ARTERIAL BLOOD SPECIMENOrdering Facility: [facility] Address: [address] [place] [address] Performed By: #### A LLBG ####[facility] LABCLIA [id number] [address] [address] [place] Oxygen (Bld) [Partial pressure] 292 mm Hg High 85-95 [facility] Comment on above: Order Comment: Speci men Type: ARTERIAL BLOOD SPECIMENOrdering Facility: [facility] Address: [address] [place] [address] Performed By: #### A LLBG ####[facility] LABCLIA [id number] [address] [address] [place] Oxygen adjusted to patient's actual temperature (Bld) [Partial pressure] 292 mmHg High 85-95 [facility] Comment on above: Order Comment: Speci men Type: ARTERIAL BLOOD SPECIMENOrdering Facility: [facility] Address: [address] [place] [address] Performed By: #### A LLBG ####[facility] LABCLIA [id number] [place] [address] [place] Oxyhemoglobin (BldA) [Mass fraction] 98 % Normal 95-98 [facility] Comment on above: Order Comment: Speci men Type: ARTERIAL BLOOD SPECIMENOrdering Facility: [facility] Address: [address] [place] [address] Performed By: #### A LLBG ####[facility] LABCLIA [id number] [place] [address] [place] pH (Bld) 7.40 [pH] Normal 7.35-7.45 [facility] Comment on above: Order Comment: Speci men Type: ARTERIAL BLOOD SPECIMENOrdering Facility: [facility] Address: [address] [place] [address] Performed By: #### A LLBG ####[facility] LABCLIA [id number] [place] [id number] [place] pH adjusted to patient's actual temperature (Bld) 7.40 Normal 7.35-7.45 [facility] Comment on above: Order Comment: Speci men Type: ARTERIAL BLOOD SPECIMENOrdering Facility: [facility] Address: [address] [place] [address] Performed By: #### A LLBG ####[facility] LABIA [id number] [place] [address] [place] Potassium [Moles/Vol] 4.4 mmol/L Normal 3.5-5.0 [facility] Comment on above: Order Comment: Speci men Type: ARTERIAL BLOOD SPECIMENOrdering Facility: [facility] Address: [address] [place] [address] Performed By: #### A LLBG ####[facility] LABIA [id number] [place] [address] [place] Sodium [Moles/Vol] 135 mmol/L Low 136-144 [facility] Comment on above: Order Comment: Speci men Type: ARTERIAL BLOOD SPECIMENOrdering Facility: [facility] Address: [address] [place] [address] Performed By: #### A LLBG ####[facility] LABIA [id number] [place] [address] [place] Base excess Calc (Bld) [Moles/Vol] 1 mmol/L Normal 0-2 [facility] Comment on above: Order Comment: Speci men Type: ARTERIAL BLOOD SPECIMENOrdering Facility: [facility] Address: [address] [place] [address] Performed By: #### A LLBG ####[facility] LABIA [id number] [place] [address] [place] Calcium.ionized (Bld) [Mass/Vol] 1.15 mmol/L Normal 1.08-1.30 [facility] Comment on above: Order Comment: Speci men Type: ARTERIAL BLOOD SPECIMENOrdering Facility: [facility] Address: [address] [place] [address] Performed By: #### A LLBG ####[facility] LABCLIA [id number] [place] [address] [place] Calcium.ionized adjusted to pH 7.4 (BldA) [Moles/Vol] 1.15 mmol/L Normal 1.08-1.30 [facility] Comment on above: Order Comment: Speci men Type: ARTERIAL BLOOD SPECIMENOrdering Facility: [facility] Address: [address] [place] [address] Performed By: #### A LLBG ####[facility] LABIA [id number] [place] [address] [place] Carboxyhemoglobin (BldA) [Mass fraction] 1.3 % Normal 0.0-2.0 [facility] Comment on above: Order Comment: Speci men Type: ARTERIAL BLOOD SPECIMENOrdering Facility: [facility] Address: [address] [place] [address] Result Comment: Carb oxyhemoglobin Reference Range for Smokers: 2.0-8.0% Performed By: #### A LLBG ####[facility] LABIA [id number] [place] [address] [place] CO2 (Bld) [Partial pressure] 42 mm Hg Normal 36-46 [facility] Comment on above: Order Comment: Speci men Type: ARTERIAL BLOOD SPECIMENOrdering Facility: [facility] Address: [address] [place] [address] Performed By: #### A LLBG ####[facility] LABIA [id number] [place] [address] [place] CO2 adjusted to patient's actual temperature (Bld) [Partial pressure] 42 mmHg Normal 36-46 [facility] Comment on above: Order Comment: Speci men Type: ARTERIAL BLOOD SPECIMENOrdering Facility: [facility] Address: [address] [place] [address] Performed By: #### A LLBG ####[facility] LABIA [id number] [place] [address] [place] Glucose [Mass/Vol] 164 mg/dL High 60-105 [facility] Comment on above: Order Comment: Speci men Type: ARTERIAL BLOOD SPECIMENOrdering Facility: [facility] Address: [address] [place] [address] Performed By: #### A LLBG ####[facility] LABCLIA [id number] [place] [address] [place] HCO3 (Bld) [Moles/Vol] 26 mmol/L Normal 22-26 [facility] Comment on above: Order Comment: Speci men Type: ARTERIAL BLOOD SPECIMENOrdering Facility: [facility] Address: [address] [place] [address] Performed By: #### A LLBG ####[facility] LABCLIA [id number] [place] [address] [place] Hematocrit (Bld) [Volume fraction] 29.0 % Low 39.0-51.0 [facility] Comment on above: Order Comment: Speci men Type: ARTERIAL BLOOD SPECIMENOrdering Facility: [facility] Address: [address] [place] [address] Performed By: #### A LLBG ####[facility] LABCLIA [id number] [place] [address] [place] Hemoglobin (Bld) [Mass/Vol] 9.3 g/dL Low 13.0-17.0 [facility] Comment on above: Order Comment: Speci men Type: ARTERIAL BLOOD SPECIMENOrdering Facility: [facility] Address: [address] [place] [address] Performed By: #### A LLBG ####[facility] LABCLIA [id number] [place] [address] [place] Lactate [Moles/Vol] 1.0 mmol/L Normal 0.5-2.2 [facility] Comment on above: Order Comment: Speci men Type: ARTERIAL BLOOD SPECIMENOrdering Facility: [facility] Address: [address] [place] [address] Performed By: #### A LLBG ####[facility] LABCLIA [id number] [place] [address] [place] Methemoglobin (Bld) [Mass fraction] 1.2 % Normal 0.0-1.5 [facility] Comment on above: Order Comment: Speci men Type: ARTERIAL BLOOD SPECIMENOrdering Facility: [facility] Address: [address] [place] [address] Performed By: #### A LLBG ####[facility] LABCLIA [id number] [place] [address] [place] Oxygen (Bld) [Partial pressure] 327 mm Hg High 85-95 [facility] Comment on above: Order Comment: Speci men Type: ARTERIAL BLOOD SPECIMENOrdering Facility: [facility] Address: [address] [place] [address] Performed By: #### A LLBG ####[facility] LABCLIA [id number] [place] [address] [place] Oxygen adjusted to patient's actual temperature (Bld) [Partial pressure] 327 mmHg High 85-95 [facility] Comment on above: Order Comment: Speci men Type: ARTERIAL BLOOD SPECIMENOrdering Facility: [facility] Address: [address] [place] [address] Performed By: #### A LLBG ####[facility] LABCLIA [id number] [place] [id number] [place] Oxyhemoglobin (BldA) [Mass fraction] 97 % Normal 95-98 [facility] Comment on above: Order Comment: Speci men Type: ARTERIAL BLOOD SPECIMENOrdering Facility: [facility] Address: [address] [place] [address] Performed By: #### A LLBG ####[facility] LABCLIA [id number] [place] [id number] [place] pH (Bld) 7.40 [pH] Normal 7.35-7.45 [facility] Comment on above: Order Comment: Speci men Type: ARTERIAL BLOOD SPECIMENOrdering Facility: [facility] Address: [address] [place] [address] Performed By: #### A LLBG ####[facility] LABCLIA [id number] [place] [address] [place] pH adjusted to patient's actual temperature (Bld) 7.40 Normal 7.35-7.45 [facility] Comment on above: Order Comment: Speci men Type: ARTERIAL BLOOD SPECIMENOrdering Facility: [facility] Address: [address] [place] [address] Performed By: #### A LLBG ####[facility] LABCLIA [id number] [place] [address] [place] Potassium [Moles/Vol] 3.8 mmol/L Normal 3.5-5.0 [facility] Comment on above: Order Comment: Speci men Type: ARTERIAL BLOOD SPECIMENOrdering Facility: [facility] Address: [address] [place] [address] Performed By: #### A LLBG ####[facility] LABCLIA [id number] [place] [address] [place] Sodium [Moles/Vol] 137 mmol/L Normal 136-144 [facility] Comment on above: Order Comment: Speci men Type: ARTERIAL BLOOD SPECIMENOrdering Facility: [facility] Address: [address] [place] [address] Performed By: #### A LLBG ####[facility] LABCLIA [id number] [place] [address] [place] Base excess Calc (Bld) [Moles/Vol] 1 mmol/L Normal 0-2 [facility] Comment on above: Order Comment: Speci men Type: ARTERIAL BLOOD SPECIMENOrdering Facility: [facility] Address: [address] [place] [address] Performed By: #### A LLBG ####[facility] LABIA [id number] [place] [address] [place] Calcium.ionized (Bld) [Mass/Vol] 1.23 mmol/L Normal 1.08-1.30 [facility] Comment on above: Order Comment: Speci men Type: ARTERIAL BLOOD SPECIMENOrdering Facility: [facility] Address: [address] [place] [address] Performed By: #### A LLBG ####[facility] LABIA [id number] [place] [address] [place] Calcium.ionized adjusted to pH 7.4 (BldA) [Moles/Vol] 1.23 mmol/L Normal 1.08-1.30 [facility] Comment on above: Order Comment: Speci men Type: ARTERIAL BLOOD SPECIMENOrdering Facility: [facility] Address: [address] [place] [address] Performed By: #### A LLBG ####[facility] [id number] [place] [id number] [place] Carboxyhemoglobin (BldA) [Mass fraction] 1.8 % Normal 0.0-2.0 [facility] Comment on above: Order Comment: Speci men Type: ARTERIAL BLOOD SPECIMENOrdering Facility: [facility] Address: [address] [place] [address] Result Comment: Carb oxyhemoglobin Reference Range for Smokers: 2.0-8.0% Performed By: #### A LLBG ####[facility] LABIA [id number] [place] [address] [place] CO2 (Bld) [Partial pressure] 43 mm Hg Normal 36-46 [facility] Comment on above: Order Comment: Speci men Type: ARTERIAL BLOOD SPECIMENOrdering Facility: [facility] Address: [address] [place] [address] Performed By: #### A LLBG ####[facility] LABCLIA [id number] [place] [address] [place] CO2 adjusted to patient's actual temperature (Bld) [Partial pressure] 43 mmHg Normal 36-46 [facility] Comment on above: Order Comment: Speci men Type: ARTERIAL BLOOD SPECIMENOrdering Facility: [facility] Address: [address] [place] [address] Performed By: #### A LLBG ####[facility] LABCLIA [id number] [place] [address] [place] Glucose [Mass/Vol] 138 mg/dL High 60-105 [facility] Comment on above: Order Comment: Speci men Type: ARTERIAL BLOOD SPECIMENOrdering Facility: [facility] Address: [address] [place] [address] Performed By: #### A LLBG ####[facility] LABCLIA [id number] [place] [address] [place] HCO3 (Bld) [Moles/Vol] 26 mmol/L Normal 22-26 [facility] Comment on above: Order Comment: Speci men Type: ARTERIAL BLOOD SPECIMENOrdering Facility: [facility] Address: [address] [place] [address] Performed By: #### A LLBG ####[facility] LABCLIA [id number] [place] [address] [place] Hematocrit (Bld) [Volume fraction] 34.3 % Low 39.0-51.0 [facility] Comment on above: Order Comment: Speci men Type: ARTERIAL BLOOD SPECIMENOrdering Facility: [facility] Address: [address] [place] [address] Performed By: #### A LLBG ####[facility] LABCLIA [id number] [place] [address] [place] Hemoglobin (Bld) [Mass/Vol] 11.1 g/dL Low 13.0-17.0 [facility] Comment on above: Order Comment: Speci men Type: ARTERIAL BLOOD SPECIMENOrdering Facility: [facility] Address: [address] [place] [address] Performed By: #### A LLBG ####[facility] LABCLIA [id number] [place] [address] [place] Lactate [Moles/Vol] 0.9 mmol/L Normal 0.5-2.2 [facility] Comment on above: Order Comment: Speci men Type: ARTERIAL BLOOD SPECIMENOrdering Facility: [facility] Address: [address] [place] [address] Performed By: #### A LLBG ####[facility] LABCLIA [id number] [place] [address] [place] Methemoglobin (Bld) [Mass fraction] 1.0 % Normal 0.0-1.5 [facility] Comment on above: Order Comment: Speci men Type: ARTERIAL BLOOD SPECIMENOrdering Facility: [facility] Address: [address] [place] [address] Performed By: #### A LLBG ####[facility] LABCLIA [id number] [place] [address] [place] Oxygen (Bld) [Partial pressure] 218 mm Hg High 85-95 [facility] Comment on above: Order Comment: Speci men Type: ARTERIAL BLOOD SPECIMENOrdering Facility: [facility] Address: [address] [place] [address] Performed By: #### A LLBG ####[facility] LABCLIA [id number] [place] [address] [place] Oxygen adjusted to patient's actual temperature (Bld) [Partial pressure] 218 mmHg High 85-95 [facility] Comment on above: Order Comment: Speci men Type: ARTERIAL BLOOD SPECIMENOrdering Facility: [facility] Address: [address] [place] [address] Performed By: #### A LLBG ####[facility] LABCLIA [id number] [place] [address] [place] Oxyhemoglobin (BldA) [Mass fraction] 97 % Normal 95-98 [facility] Comment on above: Order Comment: Speci men Type: ARTERIAL BLOOD SPECIMENOrdering Facility: [facility] Address: [address] [place] [address] Performed By: #### A LLBG ####[facility] LABCLIA [id number] [place] [address] [place] pH (Bld) 7.39 [pH] Normal 7.35-7.45 [facility] Comment on above: Order Comment: Speci men Type: ARTERIAL BLOOD SPECIMENOrdering Facility: [facility] Address: [address] [place] [address] Performed By: #### A LLBG ####[facility] LABCLIA [id number] [place] [address] [place] pH adjusted to patient's actual temperature (Bld) 7.39 Normal 7.35-7.45 [facility] Comment on above: Order Comment: Speci men Type: ARTERIAL BLOOD SPECIMENOrdering Facility: [facility] Address: [address] [place] [address] Performed By: #### A LLBG ####[facility] LABCLIA [id number] [place] [address] [place] Potassium [Moles/Vol] 3.4 mmol/L Low 3.5-5.0 [facility] Comment on above: Order Comment: Speci men Type: ARTERIAL BLOOD SPECIMENOrdering Facility: [facility] Address: [address] [place] [address] Performed By: #### A LLBG ####[facility] LABCLIA [id number] [place] [address] [place] Sodium [Moles/Vol] 140 mmol/L Normal 136-144 [facility] Comment on above: Order Comment: Speci men Type: ARTERIAL BLOOD SPECIMENOrdering Facility: [facility] Address: [address] [place] [address] Performed By: #### A LLBG ####[facility] [id number] [place] [address] [place] Base excess Calc (Bld) [Moles/Vol] 2 mmol/L Normal 0-2 [facility] Comment on above: Order Comment: Speci men Type: ARTERIAL BLOOD SPECIMENOrdering Facility: [facility] Address: [address] [place] [address] Performed By: #### A LLBG ####[facility] [id number] [place] [address] [place] Calcium.ionized (Bld) [Mass/Vol] 1.23 mmol/L Normal 1.08-1.30 [facility] Comment on above: Order Comment: Speci men Type: ARTERIAL BLOOD SPECIMENOrdering Facility: [facility] Address: [address] [place] [address] Performed By: #### A LLBG ####[facility] [id number] [place] [address] [place] Calcium.ionized adjusted to pH 7.4 (BldA) [Moles/Vol] 1.24 mmol/L Normal 1.08-1.30 [facility] Comment on above: Order Comment: Speci men Type: ARTERIAL BLOOD SPECIMENOrdering Facility: [facility] Address: [address] [place] [address] Performed By: #### A LLBG ####[facility] [id number] [place] [address] [place] Carboxyhemoglobin (BldA) [Mass fraction] 1.3 % Normal 0.0-2.0 [facility] Comment on above: Order Comment: Speci men Type: ARTERIAL BLOOD SPECIMENOrdering Facility: [facility] Address: [address] [place] [address] Result Comment: Carb oxyhemoglobin Reference Range for Smokers: 2.0-8.0% Performed By: #### A LLBG ####[facility] LABCLIA [id number] [place] [address] [place] CO2 (Bld) [Partial pressure] 42 mm Hg Normal 36-46 [facility] Comment on above: Order Comment: Speci men Type: ARTERIAL BLOOD SPECIMENOrdering Facility: [facility] Address: [address] [place] [address] Performed By: #### A LLBG ####[facility] LABCLIA [id number] [place] [address] [place] CO2 adjusted to patient's actual temperature (Bld) [Partial pressure] 42 mmHg Normal 36-46 [facility] Comment on above: Order Comment: Speci men Type: ARTERIAL BLOOD SPECIMENOrdering Facility: [facility] Address: [address] [place] [address] Performed By: #### A LLBG ####[facility] LABCLIA [id number] [place] [address] [place] Glucose [Mass/Vol] 110 mg/dL High 60-105 [facility] Comment on above: Order Comment: Speci men Type: ARTERIAL BLOOD SPECIMENOrdering Facility: [facility] Address: [address] [place] [address] Performed By: #### A LLBG ####[facility] LABCLIA [id number] [place] [address] [place] HCO3 (Bld) [Moles/Vol] 26 mmol/L Normal 22-26 [facility] Comment on above: Order Comment: Speci men Type: ARTERIAL BLOOD SPECIMENOrdering Facility: [facility] Address: [address] [place] [address] Performed By: #### A LLBG ####[facility] LABCLIA [id number] [place] [address] [place] Hematocrit (Bld) [Volume fraction] 37.1 % Low 39.0-51.0 [facility] Comment on above: Order Comment: Speci men Type: ARTERIAL BLOOD SPECIMENOrdering Facility: [facility] Address: [address] [place] [address] Performed By: #### A LLBG ####[facility] LABCLIA [id number] [place] [address] [place] Hemoglobin (Bld) [Mass/Vol] 12.1 g/dL Low 13.0-17.0 [facility] Comment on above: Order Comment: Speci men Type: ARTERIAL BLOOD SPECIMENOrdering Facility: [facility] Address: [address] [place] [address] Performed By: #### A LLBG ####[facility] LABIA [id number] [place] [address] [place] Lactate [Moles/Vol] 0.9 mmol/L Normal 0.5-2.2 [facility] Comment on above: Order Comment: Speci men Type: ARTERIAL BLOOD SPECIMENOrdering Facility: [facility] Address: [address] [place] [address] Performed By: #### A LLBG ####[facility] LABIA [id number] [place] [address] [place] Methemoglobin (Bld) [Mass fraction] 0.9 % Normal 0.0-1.5 [facility] Comment on above: Order Comment: Speci men Type: ARTERIAL BLOOD SPECIMENOrdering Facility: [facility] Address: [address] [place] [address] Performed By: #### A LLBG ####[facility] LABIA [id number] [place] [address] [place] Oxygen (Bld) [Partial pressure] 100 mm Hg High 85-95 [facility] Comment on above: Order Comment: Speci men Type: ARTERIAL BLOOD SPECIMENOrdering Facility: [facility] Address: [address] [place] [address] Performed By: #### A LLBG ####[facility] LABCLIA [id number] [place] [address] [place] Oxygen adjusted to patient's actual temperature (Bld) [Partial pressure] 100 mmHg High 85-95 [facility] Comment on above: Order Comment: Speci men Type: ARTERIAL BLOOD SPECIMENOrdering Facility: [facility] Address: [address] [place] [address] Performed By: #### A LLBG ####[facility] LABCLIA [id number] [place] [address] [place] Oxyhemoglobin (BldA) [Mass fraction] 96 % Normal 95-98 [facility] Comment on above: Order Comment: Speci men Type: ARTERIAL BLOOD SPECIMENOrdering Facility: [facility] Address: [address] [place] [address] Performed By: #### A LLBG ####[facility] LABCLIA [id number] [place] [address] [place] pH (Bld) 7.42 [pH] Normal 7.35-7.45 [facility] Comment on above: Order Comment: Speci men Type: ARTERIAL BLOOD SPECIMENOrdering Facility: [facility] Address: [address] [place] [address] Performed By: #### A LLBG ####[facility] LABCLIA [id number] [place] [address] [place] pH adjusted to patient's actual temperature (Bld) 7.42 Normal 7.35-7.45 [facility] Comment on above: Order Comment: Speci men Type: ARTERIAL BLOOD SPECIMENOrdering Facility: [facility] Address: [address] [place] [address] Performed By: #### A LLBG ####[facility] LABCLIA [id number] [place] [address] [place] Potassium [Moles/Vol] 3.6 mmol/L Normal 3.5-5.0 [facility] Comment on above: Order Comment: Speci men Type: ARTERIAL BLOOD SPECIMENOrdering Facility: [facility] Address: [address] [place] [address] Performed By: #### A LLBG ####[facility] LABCLIA [id number] [place] [address] [place] Sodium [Moles/Vol] 140 mmol/L Normal 136-144 [facility] Comment on above: Order Comment: Speci men Type: ARTERIAL BLOOD SPECIMENOrdering Facility: [facility] Address: [address] [place] [address] Performed By: #### A LLBG ####[facility] LABIA [id number] [place] [address] [place] CBC panel Auto (Bld)on 10-28 Erythrocyte distribution width (RBC) [Ratio] 16.8 % High 11.5-15.0 [facility] Comment on above: Order Comment: Speci men Type: BLOOD SPECIMENOrdering Facility: [facility] Address: [address] [place] [address] Performed By: #### 5 8410-2 ####[facility] LABIA [id number] [place] [address] [place] Hematocrit (Bld) [Volume fraction] 29.5 % Low 39.0-51.0 [facility] Comment on above: Order Comment: Speci men Type: BLOOD SPECIMENOrdering Facility: [facility] Address: [address] [place] [address] Performed By: #### 5 8410-2 ####[facility] LABIA [id number] [place] [address] [place] Hemoglobin (Bld) [Mass/Vol] 9.4 g/dL Low 13.0-17.0 [facility] Comment on above: Order Comment: Speci men Type: BLOOD SPECIMENOrdering Facility: [facility] Address: [address] [place] [address] Performed By: #### 5 8410-2 ####[facility] LABIA [id number] [place] [address] [place] MCH (RBC) [Entitic mass] 26.9 pg Normal 26.0-34.0 [facility] Comment on above: Order Comment: Speci men Type: BLOOD SPECIMENOrdering Facility: [facility] Address: [address] [place] [address] Performed By: #### 5 8410-2 ####[facility] LABIA [id number] [place] [address] [place] MCHC (RBC) [Mass/Vol] 31.9 g/dL Normal 30.5-36.0 [facility] Comment on above: Order Comment: Speci men Type: BLOOD SPECIMENOrdering Facility: [facility] Address: [address] [place] [address] Performed By: #### 5 8410-2 ####[facility] LABIA [id number] [place] [address] [place] MCV (RBC) [Entitic vol] 84.5 fL Normal 80.0-100.0 [facility] Comment on above: Order Comment: Speci men Type: BLOOD SPECIMENOrdering Facility: [facility] Address: [address] [place] [address] Performed By: #### 5 8410-2 ####[facility] LABIA [id number] [place] [address] [place] Nucleated RBC (Bld) [#/Vol] 10*3/uL Normal <0.01 [facility] Comment on above: Order Comment: Speci men Type: BLOOD SPECIMENOrdering Facility: [facility] Address: [address] [place] [address] Performed By: #### 5 8410-2 ####[facility] LABIA [id number] [place] [id number] [address] [place] Platelet mean volume (Bld) [Entitic vol] 11.6 fL Normal 9.0-12.7 [facility] Comment on above: Order Comment: Speci men Type: BLOOD SPECIMENOrdering Facility: [facility] Address: [address] [place] [address] Performed By: #### 5 8410-2 ####[facility] LABCLIA [id number] [place] [address] [place] Platelets (Bld) [#/Vol] 132 10*3/uL Low 150-400 [facility] Comment on above: Order Comment: Speci men Type: BLOOD SPECIMENOrdering Facility: [facility] Address: [address] [place] [address] Result Comment: Resu lts checked and verified.No clot detected. Performed By: #### 5 8410-2 ####[facility] LABCLIA [id number] [place] [address] [place] RBC (Bld) [#/Vol] 3.49 10*6/uL Low 4.20-6.00 [facility] Comment on above: Order Comment: Speci men Type: BLOOD SPECIMENOrdering Facility: [facility] Address: [address] [place] [address] Performed By: #### 5 8410-2 ####[facility] LABIA [id number] [place] [address] [place] WBC (Bld) [#/Vol] 14.53 10*3/uL High 3.70-11.00 [facility] Comment on above: Order Comment: Speci men Type: BLOOD SPECIMENOrdering Facility: [facility] Address: [address] [place] [address] Performed By: #### 5 8410-2 ####[facility] LABCLIA [id number] [place] [id number] [place] CNOVon 10-28-2023 CNOV Normal [facility] ECG COMPLETEon 10-28-2023 ECG COMPLETE Normal [facility] Fibrinogen PPP-mCncon 2022 Fibrinogen Coag (PPP) [Mass/Vol] 240 mg/dL Normal 200-400 [facility] Comment on above: Order Comment: Speci men Type: BLOOD SPECIMENOrdering Facility: [facility] Address: [address] [place] [address] Performed By: #### 3 255-7, 54667-7, 10886-9 ####[facility] LABCLIA [id number] [place] [address] [place] Fibrinogen Coag (PPP) [Mass/Vol] 236 mg/dL Normal 200-400 [facility] Comment on above: Order Comment: Speci men Type: BLOOD SPECIMENOrdering Facility: [facility] Address: [address] [place] [address] Performed By: #### 3 255-7, 55847-2 ####[facility] LABIA [id number] [place] [address] [place] GLOBAL HEMOSTASISon 10-28-20 23 CITRATED FUNCTIONAL FIBRINOGEN LEVEL 343.1 mg/dL Normal 278.0-581.0 [facility] Comment on above: Order Comment: Speci men Type: BLOOD SPECIMENOrdering Facility: [facility] Address: [address] [place] [address] Performed By: #### T EGGLBL ####[facility] LABCLIA [id number] [place] [address] [place] Clot angle TEG (Bld) [Angle] 73.2 degrees Normal 63.0-78.0 [facility] Comment on above: Order Comment: Speci men Type: BLOOD SPECIMENOrdering Facility: [facility] Address: [address] [place] [address] Performed By: #### T EGGLBL ####[facility] LABCLIA [id number] [place] [address] [place] Clot formation TEG (Bld) [Time] 1.3 minutes Normal 0.8-2.1 [facility] Comment on above: Order Comment: Speci men Type: BLOOD SPECIMENOrdering Facility: [facility] Address: [address] [place] [address] Performed By: #### T EGGLBL ####[facility] LABCLIA [id number] [place] [address] [place] Clotting time after addition of heparinase TEG (Bld) 4.7 minutes Normal 4.3-8.3 [facility] Comment on above: Order Comment: Speci men Type: BLOOD SPECIMENOrdering Facility: [facility] Address: [address] [place] [address] Performed By: #### T EGGLBL ####[facility] LABIA [id number] [address] [place] Clotting time.extrinsic coagulation system activated Rotational TEG (Bld) 6.0 minutes Normal 4.6-9.1 [facility] Comment on above: Order Comment: Speci men Type: BLOOD SPECIMENOrdering Facility: [facility] Address: [address] [place] [address] Performed By: #### T EGGLBL ####[facility] LABIA [id number] [place] [address] [place] Maximum clot firmness TEG (Bld) [Length] 60.5 mm Normal 52.0-69.0 [facility] Comment on above: Order Comment: Speci men Type: BLOOD SPECIMENOrdering Facility: [facility] Address: [address] [place] [address] Performed By: #### T EGGLBL ####[facility] LABIA [id number] [place] [address] [place] Maximum clot firmness.extrinsic coagulation system activated.platelets inhibited Rotational TEG (Bld) [Length] 56.9 mm Normal 52.0-70.0 [facility] Comment on above: Order Comment: Speci men Type: BLOOD SPECIMENOrdering Facility: [facility] Address: [address] [place] [address] Result Comment: 18.8 Performed By: #### T EGGLKARUNA ####[facility] [id number] [place] [address] [place] THROMBOGRAPH INTERP Normal [facility] Comment on above: Order Comment: Speci men Type: BLOOD SPECIMENOrdering Facility: [facility] Address: [address] [place] [address] Result Comment: A th romboelastograph (TEG) study [...] formation is normal. Performed By: #### T EGGBRYNN ####[facility] [id number] [place] [address] [place] DRE Gas and Carbon monoxide pane l (BldV)on 10-28-2023 Base excess Calc (BldV) [Moles/Vol] 1 mmol/L Normal 0-2 [facility] Comment on above: Order Comment: Speci men Type: VENOUS BLOOD SPECIMENOrdering Facility: [facility] Address: [address] [place] [address] Performed By: #### 2 4344-4 ####[facility] [id number] [place] [address] [place] Calcium.ionized (Bld) [Mass/Vol] 1.15 mmol/L Normal 1.08-1.30 [facility] Comment on above: Order Comment: Speci men Type: VENOUS BLOOD SPECIMENOrdering Facility: [facility] Address: [address] [place] [address] Performed By: #### 2 4344-4 ####[facility] LABCLIA [id number] [place] [address] [place] Calcium.ionized adjusted to pH 7.4 (BldA) [Moles/Vol] 1.13 mmol/L Normal 1.08-1.30 [facility] Comment on above: Order Comment: Speci men Type: VENOUS BLOOD SPECIMENOrdering Facility: [facility] Address: [address] [place] [address] Performed By: #### 2 4344-4 ####[facility] LABIA [id number] [place] [address] [place] Carboxyhemoglobin (BldV) [Mass fraction] 2.0 % Normal 0.0-2.0 [facility] Comment on above: Order Comment: Speci men Type: VENOUS BLOOD SPECIMENOrdering Facility: [facility] Address: [address] [place] [address] Result Comment: Carb oxyhemoglobin Reference Range for Smokers: 2.0-8.0% Performed By: #### 2 4344-4 ####[facility] LABIA [id number] [place] [address] [place] CO2 (BldV) [Partial pressure] 46 mm[Hg] Normal 42-55 [facility] Comment on above: Order Comment: Speci men Type: VENOUS BLOOD SPECIMENOrdering Facility: [facility] Address: [address] [place] [address] Performed By: #### 2 4344-4 ####[facility] LABIA [id number] [place] [address] [place] CO2 adjusted to patient's actual temperature (BldV) [Partial pressure] 46 mmHg Normal 42-55 [facility] Comment on above: Order Comment: Speci men Type: VENOUS BLOOD SPECIMENOrdering Facility: [facility] Address: [address] [place] [address] Performed By: #### 2 4344-4 ####[facility] LABCLIA [id number] [place] [address] [place] Glucose [Mass/Vol] 170 mg/dL High 60-105 [facility] Comment on above: Order Comment: Speci men Type: VENOUS BLOOD SPECIMENOrdering Facility: [facility] Address: [address] [place] [address] Performed By: #### 2 4344-4 ####[facility] LABCLIA [id number] [place] [address] [place] HCO3 (Bld) [Moles/Vol] 26 mmol/L Normal 24-28 [facility] Comment on above: Order Comment: Speci men Type: VENOUS BLOOD SPECIMENOrdering Facility: [facility] Address: [address] [place] [address] Performed By: #### 2 4344-4 ####[facility] LABCLIA [id number] [place] [address] [place] Hematocrit (Bld) [Volume fraction] 28.9 % Low 39.0-51.0 [facility] Comment on above: Order Comment: Speci men Type: VENOUS BLOOD SPECIMENOrdering Facility: [facility] Address: [address] [place] [address] Performed By: #### 2 4344-4 ####[facility] LABCLIA [id number] [place] [address] [place] Hemoglobin (Bld) [Mass/Vol] 9.3 g/dL Low 13.0-17.0 [facility] Comment on above: Order Comment: Speci men Type: VENOUS BLOOD SPECIMENOrdering Facility: [facility] Address: [address] [place] [address] Performed By: #### 2 4344-4 ####[facility] LABCLIA [id number] [place] [address] [place] Lactate [Moles/Vol] 1.0 mmol/L Normal 0.5-2.2 [facility] Comment on above: Order Comment: Speci men Type: VENOUS BLOOD SPECIMENOrdering Facility: [facility] Address: [address] [place] [address] Performed By: #### 2 4344-4 ####[facility] LABCLIA [id number] [address] [address] [place] Methemoglobin (Bld) [Mass fraction] 1.5 % Normal 0.0-1.5 [facility] Comment on above: Order Comment: Speci men Type: VENOUS BLOOD SPECIMENOrdering Facility: [facility] Address: [address] [place] [address] Performed By: #### 2 4344-4 ####[facility] LABCLIA [id number] [address] [address] [place] Oxygen (BldV) [Partial pressure] 92 mm[Hg] High 35-45 [facility] Comment on above: Order Comment: Speci men Type: VENOUS BLOOD SPECIMENOrdering Facility: [facility] Address: [address] [place] [address] Performed By: #### 2 4344-4 ####[facility] LABCLIA [id number] [address] [address] [place] Oxygen adjusted to patient's actual temperature (BldV) [Partial pressure] 92 mmHg High 35-45 [facility] Comment on above: Order Comment: Speci men Type: VENOUS BLOOD SPECIMENOrdering Facility: [facility] Address: [address] [place] [address] Performed By: #### 2 4344-4 ####[facility] LABCLIA [id number] [address] [address] [place] Oxygen saturation in Venous blood 98 % High 60-85 [facility] Comment on above: Order Comment: Speci men Type: VENOUS BLOOD SPECIMENOrdering Facility: [facility] Address: [address] [place] [address] Performed By: #### 2 4344-4 ####[facility] LABCLIA [id number] [place] [address] [place] Oxyhemoglobin (BldV) [Mass fraction] 94 % High 60-85 [facility] Comment on above: Order Comment: Speci men Type: VENOUS BLOOD SPECIMENOrdering Facility: [facility] Address: [address] [place] [address] Performed By: #### 2 4344-4 ####[facility] LABCLIA [id number] [place] [address] [place] pH (BldV) 7.38 [pH] Normal 7.32-7.42 [facility] Comment on above: Order Comment: Speci men Type: VENOUS BLOOD SPECIMENOrdering Facility: [facility] Address: [address] [place] [address] Performed By: #### 2 4344-4 ####[facility] LABIA [id number] [place] [address] [place] pH adjusted to patient's actual temperature (BldV) 7.38 Normal 7.32-7.42 [facility] Comment on above: Order Comment: Speci men Type: VENOUS BLOOD SPECIMENOrdering Facility: [facility] Address: [address] [place] [address] Performed By: #### 2 4344-4 ####[facility] LABIA [id number] [place] [address] [place] Potassium [Moles/Vol] 3.8 mmol/L Normal 3.5-5.0 [facility] Comment on above: Order Comment: Speci men Type: VENOUS BLOOD SPECIMENOrdering Facility: [facility] Address: [address] [place] [address] Performed By: #### 2 4344-4 ####[facility] LABIA [id number] [place] [address] [place] Sodium [Moles/Vol] 137 mmol/L Normal 136-144 [facility] Comment on above: Order Comment: Speci men Type: VENOUS BLOOD SPECIMENOrdering Facility: [facility] Address: [place] [address] Performed By: #### 2 4344-4 ####[facility] LABCLIA [id number] [place] [address] [place] INTRAOPERATIVE ECHO PREon INTRAOPERATIVE ECHO PRE Normal [facility] OPERATIVE NOon 10-28-2023 OPERATIVE NO Normal [facility] PT panel Coag (PPP)on 2022 INR Coag (PPP) [Relative time] 1.2 {INR} Normal 0.9-1.3 [facility] Comment on above: Order Comment: Speci men Type: BLOOD SPECIMENOrdering Facility: [facility] Address: [place] [address] Result Comment: Calli min K Antagonist (VKA) Therapeutic Range: INR 2 to 3 (Target INR of 2.5)Note: For patients treated with VKA drugs, such as warfarin, the [employer] 2012 Guideline recommends [...] al. Chest 2012, 141:7S-47SNishimura RA, et al. JAC 2017, 70: 252-289 Performed By: #### 3 255-7, 54911-0, 96469-1 ####[facility] LABCLIA [id number] [place] [address] [place] PT Coag (PPP) [Time] 13.0 s Normal 9.7-13.0 [facility] Comment on above: Order Comment: Speci men Type: BLOOD SPECIMENOrdering Facility: [facility] Address: [place] [address] Performed By: #### 3 255-7, 17160-8, 89092-5 ####[facility] LABCLIA [id number] [place] [address] [place] INR Coag (PPP) [Relative time] 1.4 {INR} High 0.9-1.3 [facility] Comment on above: Order Comment: Speci men Type: BLOOD SPECIMENOrdering Facility: [facility] Address: [place] [address] Result Comment: Calli min K Antagonist (VKA) Therapeutic Range: INR 2 to 3 (Target INR of 2.5)Note: For patients treated with VKA drugs, such as warfarin, the [employer] 2012 Guideline recommends [...] al. Chest 2012, 141:7S-47SNishimura RA, et al. [facility] 2017, 70: 252-289 Performed By: #### 3 255-7, 16477-2 ####[facility] LABIA [id number] [place] [id number] [place] PT Coag (PPP) [Time] 14.3 s High 9.7-13.0 [facility] Comment on above: Order Comment: Speci men Type: BLOOD SPECIMENOrdering Facility: [facility] Address: [place] [address] Performed By: #### 3 255-7, 80203-6 ####[facility] LABCLIA [id number] [place] [address] [place] Platelets Auto (Bld) [#/Vol] on 10-28-2023 Platelets (Bld) [#/Vol] 111 10*3/uL Low 150-400 [facility] Comment on above: Order Comment: Speci men Type: BLOOD SPECIMENOrdering Facility: [facility] Address: [address] [place] [address] Result Comment: Resu lts checked and verified.No clot detected. Performed By: #### 7 77-3 ####[facility] LABIA [id number] [place] [address] [place] STAPH AUREUS PCRon S. aureus and MRSA panel DEVENDRA+probe (Nose) Normal Negative [facility] Comment on above: Order Comment: Speci men Type: SWAB OF INTERNAL NOSEOrdering Facility: [facility] Address: [address] [place] [address] Result Comment: Nega tive for Staphylococcus aureus by PCR.Negative for MRSA by PCR Performed By: #### S APCR ####[facility] LABIA [id number] [place] [address] [place] US LEG VEIN MAP RYLEE VAS LABo n 10-28-2023 US LEG VEIN MAP RYLEE VAS LAB Normal [facility] US RADIAL ARTERY MAP RYLEE VAS LABon 10-28-2023 US RADIAL ARTERY MAP RYLEE VAS LAB Normal [facility] XR CHEST 1V FRONTAL PORTon 1 12-29-2022 XR CHEST 1V FRONTAL PORT Normal [facility] aPTT PPPon 10-28-2023 aPTT Coag (PPP) [Time] 27.8 s Normal 23.0-32.4 [facility] Comment on above: Order Comment: Speci men Type: BLOOD SPECIMENOrdering Facility: [facility] Address: [address] [place] [address] Performed By: #### 3 255-7, 70106-8, 09324-0 ####[facility] LABCLIA [id number] [place] [address] [place] CBC W Auto Differential pane l (Bld)on 10-27-2023 Basophils (Bld) [#/Vol] 0.06 10*3/uL Normal <0.11 [facility] Comment on above: Order Comment: Speci men Type: BLOOD SPECIMENOrdering Facility: [facility] Address: [address] [place] [address] Performed By: #### 5 7021-8 ####[facility] LABCLIA [id number] [place] [address] [place] Basophils/100 WBC (Bld) 0.7 % Normal [facility] Comment on above: Order Comment: Speci men Type: BLOOD SPECIMENOrdering Facility: [facility] Address: [address] [place] [address] Performed By: #### 5 7021-8 ####[facility] LABCLIA [id number] [place] [address] [place] Differential cell count method Nom (Bld) Auto Normal [facility] Comment on above: Order Comment: Speci men Type: BLOOD SPECIMENOrdering Facility: [facility] Address: [address] [place] [address] Performed By: #### 5 7021-8 ####[facility] LABCLIA [id number] [place] [address] [place] Eosinophils (Bld) [#/Vol] 0.28 10*3/uL Normal <0.46 [facility] Comment on above: Order Comment: Speci men Type: BLOOD SPECIMENOrdering Facility: [facility] Address: [address] [place] [address] Performed By: #### 5 7021-8 ####[facility] LABCLIA [id number] [place] [address] [place] Eosinophils/100 WBC (Bld) 3.5 % Normal [facility] Comment on above: Order Comment: Speci men Type: BLOOD SPECIMENOrdering Facility: [facility] Address: [address] [place] [address] Performed By: #### 5 7021-8 ####[facility] LABCLIA [id number] [place] [address] [place] Erythrocyte distribution width (RBC) [Ratio] 17.0 % High 11.5-15.0 [facility] Comment on above: Order Comment: Speci men Type: BLOOD SPECIMENOrdering Facility: [facility] Address: [address] [place] [address] Performed By: #### 5 7021-8 ####[facility] LABIA [id number] [place] [address] [place] Hematocrit (Bld) [Volume fraction] 39.6 % Normal 39.0-51.0 [facility] Comment on above: Order Comment: Speci men Type: BLOOD SPECIMENOrdering Facility: [facility] Address: [address] [place] [address] Performed By: #### 5 7021-8 ####[facility] LABIA [id number] [place] [address] [place] Hemoglobin (Bld) [Mass/Vol] 12.3 g/dL Low 13.0-17.0 [facility] Comment on above: Order Comment: Speci men Type: BLOOD SPECIMENOrdering Facility: [facility] Address: [address] [place] [address] Performed By: #### 5 7021-8 ####[facility] LABIA [id number] [place] [address] [place] Immature granulocytes (Bld) [#/Vol] 0.06 10*3/uL Normal <0.10 [facility] Comment on above: Order Comment: Speci men Type: BLOOD SPECIMENOrdering Facility: [facility] Address: [address] [place] [address] Performed By: #### 5 7021-8 ####[facility] LABCLIA [id number] [address] [place] Immature granulocytes/100 WBC (Bld) 0.7 % Normal [facility] Comment on above: Order Comment: Speci men Type: BLOOD SPECIMENOrdering Facility: [facility] Address: [address] [place] [address] Performed By: #### 5 7021-8 ####[facility] LABIA [id number] [place] [address] [place] Lymphocytes (Bld) [#/Vol] 1.00 10*3/uL Normal 1.00-4.00 [facility] Comment on above: Order Comment: Speci men Type: BLOOD SPECIMENOrdering Facility: [facility] Address: [address] [place] [address] Performed By: #### 5 7021-8 ####[facility] LABIA [id number] [place] [address] [place] Lymphocytes/100 WBC (Bld) 12.5 % Normal [facility] Comment on above: Order Comment: Speci men Type: BLOOD SPECIMENOrdering Facility: [facility] Address: [address] [place] [address] Performed By: #### 5 7021-8 ####[facility] LABIA [id number] [place] [address] [place] MCH (RBC) [Entitic mass] 26.6 pg Normal 26.0-34.0 [facility] Comment on above: Order Comment: Speci men Type: BLOOD SPECIMENOrdering Facility: [facility] Address: [address] [place] [address] Performed By: #### 5 7021-8 ####[facility] LABIA [id number] [place] [address] [place] MCHC (RBC) [Mass/Vol] 31.1 g/dL Normal 30.5-36.0 [facility] Comment on above: Order Comment: Speci men Type: BLOOD SPECIMENOrdering Facility: [facility] Address: [address] [place] [address] Performed By: #### 5 7021-8 ####[facility] LABCLIA [id number] [place] [address] [place] MCV (RBC) [Entitic vol] 85.7 fL Normal 80.0-100.0 [facility] Comment on above: Order Comment: Speci men Type: BLOOD SPECIMENOrdering Facility: [facility] Address: [address] [place] [address] Performed By: #### 5 7021-8 ####[facility] LABIA [id number] [place] [address] [place] Monocytes (Bld) [#/Vol] 0.58 10*3/uL Normal <0.87 [facility] Comment on above: Order Comment: Speci men Type: BLOOD SPECIMENOrdering Facility: [facility] Address: [address] [place] [address] Performed By: #### 5 7021-8 ####[facility] LABCLIA [id number] [place] [address] [place] Monocytes/100 WBC (Bld) 7.2 % Normal [facility] Comment on above: Order Comment: Speci men Type: BLOOD SPECIMENOrdering Facility: [facility] Address: [address] [place] [address] Performed By: #### 5 7021-8 ####[facility] LABCLIA [id number] [place] [address] [place] Neutrophils (Bld) [#/Vol] 6.05 10*3/uL Normal 1.45-7.50 [facility] Comment on above: Order Comment: Speci men Type: BLOOD SPECIMENOrdering Facility: [facility] Address: [address] [place] [address] Performed By: #### 5 7021-8 ####[facility] LABCLIA [id number] [place] [address] [place] Neutrophils/100 WBC (Bld) 75.4 % Normal [facility] Comment on above: Order Comment: Speci men Type: BLOOD SPECIMENOrdering Facility: [facility] Address: [address] [place] [address] Performed By: #### 5 7021-8 ####[facility] LABCLIA [id number] [place] [address] [place] Nucleated RBC (Bld) [#/Vol] 10*3/uL Normal <0.01 [facility] Comment on above: Order Comment: Speci men Type: BLOOD SPECIMENOrdering Facility: [facility] Address: [address] [place] [address] Performed By: #### 5 7021-8 ####[facility] LABIA [id number] [place] [address] [place] Nucleated RBC/100 WBC (Bld) [Ratio] 0.0 /100 WBC Normal [facility] Comment on above: Order Comment: Speci men Type: BLOOD SPECIMENOrdering Facility: [facility] Address: [address] [place] [address] Performed By: #### 5 7021-8 ####[facility] LABIA [id number] [place] [address] [place] Platelet mean volume (Bld) [Entitic vol] 11.9 fL Normal 9.0-12.7 [facility] Comment on above: Order Comment: Speci men Type: BLOOD SPECIMENOrdering Facility: [facility] Address: [address] [place] [address] Performed By: #### 5 7021-8 ####[facility] LABIA [id number] [place] [address] [place] Platelets (Bld) [#/Vol] 160 10*3/uL Normal 150-400 [facility] Comment on above: Order Comment: Speci men Type: BLOOD SPECIMENOrdering Facility: [facility] Address: [address] [place] [address] Performed By: #### 5 7021-8 ####[facility] LABCLIA [id number] [address] [address] [place] RBC (Bld) [#/Vol] 4.62 10*6/uL Normal 4.20-6.00 [facility] Comment on above: Order Comment: Speci men Type: BLOOD SPECIMENOrdering Facility: [facility] Address: [address] [place] [address] Performed By: #### 5 7021-8 ####[facility] LABCLIA [id number] [place] [address] [place] WBC (Bld) [#/Vol] 8.03 10*3/uL Normal 3.70-11.00 [facility] Comment on above: Order Comment: Speci men Type: BLOOD SPECIMENOrdering Facility: [facility] Address: [address] [place] [address] Performed By: #### 5 7021-8 ####[facility] LABCLIA [id number] [place] [address] [place] CNCNPATEDon 10-27-2023 CNCNPATED Normal [facility] CNCOon 10-27-2023 CNCO Letter Text Normal [facility] CNOVon 10-27-2023 CNOV Normal [facility] CNOV Normal [facility] CNOV Normal [facility] CONFIRM BLOOD TYPEon 023 ABO O Normal [facility] Comment on above: Order Comment: Speci men Type: BLOOD SPECIMENOrdering Facility: [facility] Address: [address] [place] [address] Performed By: #### C ONABO ####[facility] BANKCLIA [id number] [place] [address] [place] Rh Nom (Bld) Negative Normal [facility] Comment on above: Order Comment: Speci men Type: BLOOD SPECIMENOrdering Facility: [facility] Address: [address] [place] [address] Performed By: #### C ONABO ####CC [facility] BANKCLIA [id number] [place] [address] [place] Comprehensive metabolic 2000 panelon 10-27-2023 Albumin [Mass/Vol] 4.5 g/dL Normal 3.9-4.9 [facility] Comment on above: Order Comment: Speci men Type: BLOOD SPECIMENOrdering Facility: [facility] Address: [address] [place] [address] Performed By: #### 2 4323-8, 2531-0 ####[facility] LABCLIA [id number] [place] [address] [place] ALP [Catalytic activity/Vol] 93 U/L Normal 38-113 [facility] Comment on above: Order Comment: Speci men Type: BLOOD SPECIMENOrdering Facility: [facility] Address: [address] [place] [address] Performed By: #### 2 432-8, 2531-0 ####[facility] LABCLIA [id number] [place] [address] [place] ALT [Catalytic activity/Vol] 19 U/L Normal 10-54 [facility] Comment on above: Order Comment: Speci men Type: BLOOD SPECIMENOrdering Facility: [facility] Address: [address] [place] [address] Performed By: #### 2 4323-8, 2-0 ####[facility] LABCLIA [id number] [place] [id number] [place] Anion gap [Moles/Vol] 14 mmol/L Normal 9-18 [facility] Comment on above: Order Comment: Speci men Type: BLOOD SPECIMENOrdering Facility: [facility] Address: [address] [place] [address] Performed By: #### 2 432-8, 2531-0 ####[facility] LABCLIA [id number] [place] [address] [place] AST [Catalytic activity/Vol] 18 U/L Normal 14-40 [facility] Comment on above: Order Comment: Speci men Type: BLOOD SPECIMENOrdering Facility: [facility] Address: [address] [place] [address] Performed By: #### 2 4328, 2531-0 ####[facility] LABCLIA [id number] [place] [address] [place] Bilirubin [Mass/Vol] 0.5 mg/dL Normal 0.2-1.3 [facility] Comment on above: Order Comment: Speci men Type: BLOOD SPECIMENOrdering Facility: [facility] Address: [address] [place] [address] Performed By: #### 2 4328, 2531-0 ####[facility] LABCLIA [id number] [place] [address] [place] Calcium [Mass/Vol] 9.9 mg/dL Normal 8.5-10.2 [facility] Comment on above: Order Comment: Speci men Type: BLOOD SPECIMENOrdering Facility: [facility] Address: [address] [place] [address] Performed By: #### 2 4328, 0 ####[facility] LABCLIA [id number] [place] [address] [place] Chloride [Moles/Vol] 102 mmol/L Normal 97-105 [facility] Comment on above: Order Comment: Speci men Type: BLOOD SPECIMENOrdering Facility: [facility] Address: [address] [place] [address] Performed By: #### 2 4328, 2531-0 ####[facility] LABCLIA [id number] [place] [address] [place] CO2 [Moles/Vol] 26 mmol/L Normal 22-30 [facility] Comment on above: Order Comment: Speci men Type: BLOOD SPECIMENOrdering Facility: [facility] Address: [address] [place] [address] Performed By: #### 2 4323-8, 2531-0 ####[facility] LABIA [id number] [place] [address] [place] Creatinine [Mass/Vol] 1.29 mg/dL High 0.73-1.22 [facility] Comment on above: Order Comment: Speci men Type: BLOOD SPECIMENOrdering Facility: [facility] Address: [address] [place] [address] Performed By: #### 2 43238, 2531-0 ####[facility] [id number] [place] [address] [place] Creatinine and Glomerular filtration rate.predicted panel (S/P/Bld) 61 mL/min/1.73m??? Normal >=60 [facility] Comment on above: Order Comment: Speci men Type: BLOOD SPECIMENOrdering Facility: [facility] Address: [address] [place] [address] Result Comment: Gisselle mated Glomerular Filtration Rate [...] GFR. Performed By: #### 2 4323-8, 0 ####[facility] LABIA [id number] [place] [id number] [place] Glucose [Mass/Vol] 137 mg/dL High 74-99 [facility] Comment on above: Order Comment: Speci men Type: BLOOD SPECIMENOrdering Facility: [facility] Address: [address] [place] [address] Result Comment: The [place] Diabetes Association (ADA) provides guidance for cutoff [...] Standards of Medical Care in Diabetes 2016, [place] [employer] Association. Diabetes Care. 2016.39(Suppl 1). Performed By: #### 2 4323-8, 0 ####[facility] LABCLIA [id number] [place] [address] [place] Potassium [Moles/Vol] 4.1 mmol/L Normal 3.7-5.1 [facility] Comment on above: Order Comment: Speci men Type: BLOOD SPECIMENOrdering Facility: [facility] Address: [address] [place] [address] Performed By: #### 2 4323-8, ####[facility] LABCLIA [id number] [place] [address] [place] Protein [Mass/Vol] 6.4 g/dL Normal 6.3-8.0 [facility] Comment on above: Order Comment: Speci men Type: BLOOD SPECIMENOrdering Facility: [facility] Address: [address] [place] [address] Performed By: #### 2 4328, 0 ####[facility] LABCLIA [id number] [place] [id number] [place] Sodium [Moles/Vol] 142 mmol/L Normal 136-144 [facility] Comment on above: Order Comment: Speci men Type: BLOOD SPECIMENOrdering Facility: [facility] Address: [address] [place] [address] Performed By: #### 2 4323-8, 2531-0 ####[facility] LABCLIA [id number] [place] [address] [place] Urea nitrogen [Mass/Vol] 26 mg/dL High 9-24 [facility] Comment on above: Order Comment: Speci men Type: BLOOD SPECIMENOrdering Facility: [facility] Address: [address] [place] [address] Performed By: #### 2 4323-8, 2531-0 ####[facility] LABCLIA [id number] [place] [address] [place] ECG COMPLETEon 10-27-2023 ECG COMPLETE Normal [facility] HISTORY PHYSICALon HISTORY PHYSICAL Normal [facility] HbA1c (Bld)on 10-27-2023 Average glucose Estimated from glycated hemoglobin (Bld) [Mass/Vol] 128 mg/dL Normal [facility] Comment on above: Order Comment: Enma perry Type: BLOOD SPECIMENOrdering Facility: [facility] Address: [address] [place] [address] Result Comment: eAG: (Estimated average glucose) is a calculated value from HgbA1c and is communications representative of the average blood glucose level in the last 2-3 month period. Performed By: #### 5 5454-3 ####[facility] LABCLIA [id number] [place] [address] [place] HbA1c (Bld) [Mass fraction] 6.1 % High 4.3-5.6 [facility] Comment on above: Order Comment: Enma orlando Type: BLOOD SPECIMENOrdering Facility: [facility] Address: [address] [place] [address] Result Comment: [place] Diabetes Association guidelines indicate that patients with HgbA1c in the range 5.7-6.4% are at increased risk for development of diabetes, and intervention by lifestyle modification may be beneficial. HgbA1c greater or equal to 6.5% is considered diagnostic of diabetes. Performed By: #### 5 5454-3 ####[facility] LABCLIA [id number] [place] [address] [place] LDH SerPl-cCncon 10-27-2023 LDH [Catalytic activity/Vol] 171 U/L Normal 135-225 [facility] Comment on above: Order Comment: Speci men Type: BLOOD SPECIMENOrdering Facility: [facility] Address: [address] [place] [address] Performed By: #### 2 4323-8, 2532-0 ####[facility] LABCLIA [id number] [address] [place] Laboratory - Microbiology an d Antimicrobial susceptibilityon 10-27-2023 S. aureus and MRSA panel DEVENDRA+probe (Nose) Negative Negative [facility] PT panel Coag (PPP)on 2022 INR Coag (PPP) [Relative time] 1.0 {INR} Normal 0.9-1.3 [facility] Comment on above: Order Comment: Speci men Type: BLOOD SPECIMENOrdering Facility: [facility] Address: [address] [place] [address] Result Comment: Calli min K Antagonist (VKA) Therapeutic Range: INR 2 to 3 (Target INR of 2.5)Note: For patients treated with VKA drugs, such as warfarin, the [place] [employer] 2012 Guideline recommends [...] of 3).Roe GH, et al. Chest 2012, 141:7S-47SNishjayyura RA, et al. JACC 2017, 70: 252-289 Performed By: #### 1 4979-9, 14309-6 ####[facility] LABCLIA [id number] [place] [address] [place] PT Coag (PPP) [Time] 10.9 s Normal 9.7-13.0 [facility] Comment on above: Order Comment: Speci men Type: BLOOD SPECIMENOrdering Facility: [facility] Address: [address] [place] [address] Performed By: #### 1 4979-9, 02810-3 ####[facility] LABCLIA [id number] [place] [address] [place] STAPH AUREUS PCRon 3 S. aureus and MRSA panel DEVENDRA+probe (Nose) Normal Negative [facility] Comment on above: Order Comment: Speci men Type: SWAB OF INTERNAL NOSEOrdering Facility: [facility] Address: [address] [place] [address] Result Comment: Nega tive for Staphylococcus aureus by PCR.Negative for MRSA by PCR Performed By: #### S APCR ####[facility] LABCLIA [id number] [address] [place] TYPE AND SCREEN,30 DAYon ABO O Normal [facility] Comment on above: Order Comment: Speci men Type: BLOOD SPECIMENOrdering Facility: [facility] Address: [address] [place] [address] Performed By: #### T SCR30 ####CC [facility] BLOOD BANKCLIA [id number] [place] [address] [place] HISTORICAL AB SCR STATUS Negative Normal [facility] Comment on above: Order Comment: Speci men Type: BLOOD SPECIMENOrdering Facility: [facility] Address: [address] [place] [address] Performed By: #### T SCR30 ####CC [facility] BLOOD BANKCLIA [id number] [place] [address] [place] Rh Nom (Bld) Negative Normal [facility] Comment on above: Order Comment: Speci men Type: BLOOD SPECIMENOrdering Facility: [facility] Address: [address] [place] [address] Performed By: #### T SCR30 ####CC [facility] BLOOD BANKIA [id number] [place] [address] [place] URINALYSIS, DIPSTICK ONLYon 10-27-2023 Bilirubin Ql (U) Negative Normal Negative [facility] Comment on above: Order Comment: Speci men Type: URINE SPECIMENOrdering Facility: [facility] Address: [address] [place] [address] Performed By: #### U A ####[facility] LABCLIA [id number] [place] [address] [place] Clarity (Unsp spec) Clear Normal Clear [facility] Comment on above: Order Comment: Speci men Type: URINE SPECIMENOrdering Facility: [facility] Address: [address] [place] [address] Performed By: #### U A ####[facility] LABCLIA [id number] [place] [address] [place] Color (U) Yellow Normal Yellow [facility] Comment on above: Order Comment: Speci men Type: URINE SPECIMENOrdering Facility: [facility] Address: [address] [place] [address] Performed By: #### U A ####[facility] LABCLIA [id number] [place] [address] [place] Glucose Test strip (U) [Mass/Vol] 3+ Abnormal Negative [facility] Comment on above: Order Comment: Speci men Type: URINE SPECIMENOrdering Facility: [facility] Address: [address] [place] [address] Performed By: #### U A ####[facility] LABCLIA [id number] [place] [address] [place] Hemoglobin Ql (U) Negative Normal Negative [facility] Comment on above: Order Comment: Speci men Type: URINE SPECIMENOrdering Facility: [facility] Address: [address] [place] [address] Performed By: #### U A ####[facility] LABCLIA [id number] [place] [address] [place] Ketones Ql (U) Negative Normal Negative [facility] Comment on above: Order Comment: Speci men Type: URINE SPECIMENOrdering Facility: [facility] Address: [address] [place] [address] Performed By: #### U A ####[facility] LABCLIA [id number] [place] [address] [place] Leukocyte esterase Test strip Ql (U) Negative Normal Negative [facility] Comment on above: Order Comment: Speci men Type: URINE SPECIMENOrdering Facility: [facility] Address: [address] [place] [address] Performed By: #### U A ####[facility] LABCLIA [id number] [place] [address] [place] Nitrite Ql (U) Negative Normal Negative [facility] Comment on above: Order Comment: Speci men Type: URINE SPECIMENOrdering Facility: [facility] Address: [address] [place] [address] Performed By: #### U A ####[facility] LABCLIA [id number] [place] [address] [place] pH (U) 6.5 [pH] Normal <8.5 [facility] Comment on above: Order Comment: Speci men Type: URINE SPECIMENOrdering Facility: [facility] Address: [address] [place] [address] Performed By: #### U A ####[facility] LABCLIA [id number] [place] [address] [place] Protein (U) [Mass/Vol] Negative Normal Negative [facility] Comment on above: Order Comment: Speci men Type: URINE SPECIMENOrdering Facility: [facility] Address: [address] [place] [address] Performed By: #### U A ####[facility] LABIA [id number] [place] [address] [place] Specific gravity (U) [Rel density] 1.019 Normal 1.005-1.030 [facility] Comment on above: Order Comment: Speci men Type: URINE SPECIMENOrdering Facility: [facility] Address: [address] [place] [address] Performed By: #### U A ####[facility] LABIA [id number] [place] [address] [place] Urobilinogen Ql (U) 1.0 EU/dL Normal 0.2-1.0 EU/dL [facility] Comment on above: Order Comment: Speci men Type: URINE SPECIMENOrdering Facility: [facility] Address: [address] [place] [address] Performed By: #### U A ####[facility] LABIA [id number] [place] [address] [place] XR CHEST 2V FRONTAL/LATon XR CHEST 2V FRONTAL/LAT Normal [facility] aPTT PPPon 10-27-2023 aPTT Coag (PPP) [Time] 28.5 s Normal 23.0-32.4 [facility] Comment on above: Order Comment: Speci men Type: BLOOD SPECIMENOrdering Facility: [facility] Address: [address] [place] [address] Performed By: #### 1 4979-9, 22896-7 ####[facility] LABIA [id number] [place] [address] [place] CNPNon 10-05-2023 CNPN Normal [facility] Follow-Upon 09-29-2023 Follow-Up [id number] Courtney Hong M 1955 M Provider Department Center 09/29/2023 81820-LOESHSHSTEPHANIE MERAZ HVCVASENDO [place] [facility] Family History Problem Relation Age of Onset Stroke Mother Prostate cancer Father Family Status - Relation Status Age at Mother Father Level of Service:94783 ME OFFICE/OUTPATIENT ESTABLISHED LOW MDM 20-29 MIN Reason for Visit and Comments: Follow-up [693363] - Cabgx3- Schedule surgery. Normal [facility] Orders Onlyon 09-17-2023 Orders Only [id number] Courtney Hong M 1955 Provider Department Center 09/17/2023 OLY LO DCC INF DCC Family History Problem Relation Age of Onset Stroke Mother Prostate cancer Father Family Status - Relation Status Age at Mother Father [facility] POCT GLUCOSE METER UNSOLICIT ED RESULTSon 09-17-2023 Glucose [Mass/Vol] 137 mg/dL High 70-105 [facility] Comment on above: Order Comment: Waive d Testing in the ED is performed under the ED CLIA certificate #[id number]. Result Comment: arei [email or web address] Performed By: #### L [id number] ####[facility] LAB (BEAKER)[address] [place] [address] Glucose [Mass/Vol] 153 mg/dL High 70-105 [facility] Comment on above: Order Comment: Waive d Testing in the ED is performed under the ED CLIA certificate #[id number]. Result Comment: arei [email or web address] Performed By: #### L [id number] ####[facility] (BEAKER)[address] [place] [address] Glucose [Mass/Vol] 104 mg/dL Normal 70-105 [facility] Comment on above: Order Comment: Waive d Testing in the ED is performed under the ED CLIA certificate #[id number]. Result Comment: arei [email or web address] Performed By: #### L [id number] ####[facility] (BEAKER)[address] [place] [address] Follow-Upon 08-25-2023 Follow-Up [id number] Courtney Hong benigno Quiroga 1955 Date Provider Department Center 08/25/2023 84819-TPOVDATSTEPHANIE MERAZ [facility]IL[facility] Family History Problem Relation Age of Onset Stroke Mother Prostate cancer Father Family Status - Relation Status Age at Mother Father Level of Service:44423 ME OFFICE/OUTPATIENT ESTABLISHED LOW MDM 20-29 MIN Reason for Visit and Comments: Follow-up [403093] - Cabg x3 all testing but labs completed--pick surgery date Normal [facility] Office Visiton 07-28-2023 Follow-up visit [id number] Courtney Hong benigno Quiroga 1955 Date Provider Department Center 07/28/2023 STEPHANIE FONSECA [place] [facility] Family History Problem Relation Age of Onset Stroke Mother Prostate cancer Father Family Status - Relation Status Age at Mother Father Level of Service:44671 ME OFFICE/OP CONSLTJ NEW/EST PT HIGH MDM 55 MINUTES Normal [facility] HPon 07-02-2023 HP --- Attestation signed by [...] perfusion in the inferior wall and apex.. 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 Normal [facility] NURSNOTEon 07-02-2023 NURSNOTE RN educated pt on d/ c instructions. RN encouraged pt to voice any questions or concerns. Pt verbalizes no questions or concerns at this time. Normal [facility] HPon 06-12-2023 Cardiology Clinic No te Chief Complaint: new patient to establish care HPI: Roland Hong is a 68 y.o. male male with a past medical history including HTN, HLD, CAD with [place] s/p PCI who is referred to Cardiology clinic for evaluation of chest pain and abnormal stress. Patient reports symptoms of chest pain with exertion over the past several months. He reports associated shortness of breath.. He denies any lower extremity edema, orthopnea, or PND. No near syncope or syncope. No additional complaint at this time. [place] with PCI was in 2005. Stress test [...] revascularization -Proc (more content not included)... Normal [facility] Office Visiton 06-12-2023 Follow-up visit [id number] Courtney Hong 1955 M Date Provider Department Center 06/12/2023 3848-YESSI BURGOS SHARON [facility] Family History Problem Relation Age of Onset Stroke Mother Prostate cancer Father Family Status - Relation Status Age at Mother Father Level of Service:16631 ME OFFICE/OUTPATIENT NEW MODERATE MDM 45-59 MINUTES Normal [facility] OCC BLD IMMUNO SCREENon - OCCULT BLOOD Negative Normal NEGATIVE [facility] Comment on above: Performed By: #### O BSCRN #### [facility] [address] [place] [address] Dr. Willie Martinez CBC AUTO DIFFon 01-16-2022 BASO # 0.0 103/ul Normal 0.0-0.1 [facility] Comment on above: Performed By: #### C BC #### [facility] [address] [place] [address] Dr. Willie Martinez Basophils/100 WBC (Bld) 1.0 % Normal 0.2-2.0 [facility] Comment on above: Performed By: #### C BC #### [facility] [address] [place] [address] Dr. Willie Martinez EO # 0.2 103/ul Normal 0.0-0.7 [facility] Comment on above: Performed By: #### C BC #### [facility] [address] [place] [address] Dr. Willie Martinez Eosinophils/100 WBC (Bld) 5.9 % Normal 0.9-7.0 [facility] Comment on above: Performed By: #### C BC #### [facility] [address] [place] [address] Dr. Willie Martinez Erythrocyte distribution width (RBC) [Ratio] 15.6 % Critically high 11.0-15.0 [facility] Comment on above: Performed By: #### C BC #### [facility] [address] [place] [address] Dr. Willie Martinez Hematocrit (Bld) [Volume fraction] 42.2 % Normal 42.0-54.0 [facility] Comment on above: Performed By: #### C BC #### [facility] [address] [place] [address] Dr. Willie Martinez Hemoglobin (Bld) [Mass/Vol] 13.0 g/dL Critically low 14.0-18.0 [facility] Comment on above: Performed By: #### C BC #### [facility] [address] [place] [address] Dr. Willie Martinez IG # 0.03 10e3/ul Normal 0.00-0.03 [facility] Comment on above: Performed By: #### C BC #### [facility] [address] [place] [address] Dr. Willie Martinez IG % 0.8 % Critically high 0.0-0.5 [facility] Comment on above: Performed By: #### C BC #### [facility] [address] [place] [address] Dr. Willie Martinez LYMPH # 0.8 103/ul Critically low 1.2-3.8 [facility] Comment on above: Performed By: #### C BC #### [facility] [address] [place] [address] Dr. Willie Martinez Lymphocytes/100 WBC (Bld) 21.3 % Normal 20.5-60.0 [facility] Comment on above: Performed By: #### C BC #### [facility] [address] [place] [address] Dr. Willie Martinez MANUAL DIFF REQ NO Normal [facility] Comment on above: Performed By: #### C BC #### [facility] [address] [place] [address] Dr. Willie Martinez MCH (RBC) [Entitic mass] 26.7 pg Normal 25.9-34.0 [facility] Comment on above: Performed By: #### C BC #### [facility] [address] [place] [address] Dr. Wilile Martinez MCHC (RBC) [Mass/Vol] 30.8 g/dL Normal 29.9-35.2 [facility] Comment on above: Performed By: #### C BC #### [facility] [address] [place] [address] Dr. Willie Martinez MCV (RBC) [Entitic vol] 86.7 fL Normal 80.0-94.0 [facility] Comment on above: Performed By: #### C BC #### [facility] [address] [place] [address] Dr. Willie Martinez MONO # 0.4 103/ul Normal 0.3-0.8 [facility] Comment on above: Performed By: #### C BC #### [facility] [address] [address] [address] Willie Martinez Monocytes/100 WBC (Bld) 11.3 % Normal 1.7-12.0 [facility] Comment on above: Performed By: #### C BC #### [facility] [address] [address] [address] Willie Martinez NEUT # 2.3 103/ul Normal 1.4-6.5 [facility] Comment on above: Performed By: #### C BC #### [facility] [address] [address] [address] Willie Martinez Neutrophils/100 WBC (Bld) 59.7 % Normal 43.0-75.0 [facility] Comment on above: Performed By: #### C BC #### [facility] [address] [address] [address] Willie Martinez Platelet mean volume (Bld) [Entitic vol] 11.6 fL Normal 9.5-13.5 [facility] Comment on above: Performed By: #### C BC #### [facility] [address] [address] [address] Willie Martinez PLT 163 103/ul Normal 150-450 [facility] Comment on above: Performed By: #### C BC #### [facility] [address] [address] [address] Willie Martinez RBC 4.87 106/ul Normal 4.70-6.10 [facility] Comment on above: Performed By: #### C BC #### [facility] [address] [address] [address] Willie Martinez WBC 3.9 103/ul Critically low 4.0-11.0 [facility] Comment on above: Performed By: #### C BC #### [facility] [address] [address] [address] Willie Martinez FREE T3on 01-16-2022 FREE T3 2.70 pg/mlL Critically low 2.77-5.27 [facility] Comment on above: Performed By: #### C MP, T4, FT3, TSH, LIPID #### [facility] [address] [address] [address] Willie Martinez GLYCOHEMOGLOBIN A1Con 2021 ADA RECOMMENDATION ADA THERAPEUTIC TARG ET 6.0 - 7.0 ACTION SUGGESTED > 7.0 Normal [facility] Comment on above: Performed By: #### C BC #### [facility] [address] [address] [address] Willie Martinez Glucose [Mass/Vol] 143 mg/dL Normal [facility] Comment on above: Performed By: #### C BC #### [facility] [address] [address] [address] Willie Martinez HbA1c (Bld) [Mass fraction] 6.6 % Critically high <=6.0 [facility] Comment on above: Performed By: #### C BC #### [facility] [address] [place] [address] Dr. Willie Martinez LIPID PROFILEon 01-16-2022 CHOL-HDL RATIO NORM SEE BELOW Normal [facility] Comment on above: Result Comment: 3.3 - 4.4 LOW RISK 4.4 - 7.1 AVERAGE RISK 7.1 - 11.0 MODERATE RISK >11.0 HIGH RISK Performed By: #### C MP, T4, FT3, TSH, LIPID #### [facility] [address] [place] [address] Dr. Willie Martinez Cholesterol [Mass/Vol] 212 mg/dL Critically high <=200 [facility] Comment on above: Performed By: #### C MP, T4, FT3, TSH, LIPID #### [facility] [address] [place] [address] Dr. Willie Martinez Cholesterol in HDL [Mass/Vol] 54 mg/dL Normal [facility] Comment on above: Performed By: #### C MP, T4, FT3, TSH, LIPID #### [facility] [address] [place] [address] Dr. Willie Martinez Cholesterol in LDL [Mass/Vol] 151.4 mg/dL Normal [facility] Comment on above: Performed By: #### C MP, T4, FT3, TSH, LIPID #### [facility] [address] [address] [address] Willie Martinez Cholesterol.total/Cho lesterol in HDL [Mass ratio] 3.9 {ratio} Normal [facility] Comment on above: Performed By: #### C MP, T4, FT3, TSH, LIPID #### [facility] [address] [address] [address] Willie Martinez HDL NORMAL > or = 60 mg/dl - LO W CARDIOVASCULAR RISK <40 mg/dl - HIGH CARDIOVASCULAR RISK Normal [facility] Comment on above: Performed By: #### C MP, T4, FT3, TSH, LIPID #### [facility] [address] [address] [address] Willie Martinez LDL CALC NORMAL SEE BELOW Normal [facility] Comment on above: Result Comment: <100 mg/dl OPTIMAL 100 - 129 mg/dl NEAR OR ABOVE OPTIMAL 130 - 159 mg/dl BORDERLINE HIGH 160 - 189 mg/dl HIGH >190 mg/dl VERY HIGH Performed By: #### C MP, T4, FT3, TSH, LIPID #### [facility] [address] [address] [address] Willie Martinez Triglyceride [Mass/Vol] 33 mg/dL Normal <=150 [facility] Comment on above: Performed By: #### C MP, T4, FT3, TSH, LIPID #### [facility] [address] [address] [address] Willie Martinez VLDL CALC 6.6 mg/dL Normal [facility] Comment on above: Performed By: #### C MP, T4, FT3, TSH, LIPID #### [facility] [address] [address] [address] Willie Martinez PROF 14(COMP METB)on 022 Albumin [Mass/Vol] 4.1 g/dL Normal 3.5-5.0 [facility] Comment on above: Performed By: #### C MP, T4, FT3, TSH, LIPID #### [facility] [address] [address] [address] Willie Martinez Albumin/Globulin [Mass ratio] 1.3 {ratio} Normal [facility] Comment on above: Performed By: #### C MP, T4, FT3, TSH, LIPID #### [facility] [address] [place] [address] Dr. Willie Martinez ALP [Catalytic activity/Vol] 88 U/L Normal 38-126 [facility] Comment on above: Performed By: #### C MP, T4, FT3, TSH, LIPID #### [facility] [address] [place] [address] Dr. Willie Martinez ALT [Catalytic activity/Vol] 29 U/L Normal 21-72 [facility] Comment on above: Performed By: #### C MP, T4, FT3, TSH, LIPID #### [facility] [address] [place] [address] Dr. Willie Martinez Anion gap [Moles/Vol] 10.4 mmol/L Normal [facility] Comment on above: Performed By: #### C MP, T4, FT3, TSH, LIPID #### [facility] [address] [place] [address] Dr. Willie Martinez AST [Catalytic activity/Vol] 15 U/L Critically low 17-59 [facility] Comment on above: Performed By: #### C MP, T4, FT3, TSH, LIPID #### [facility] [address] [place] [address] Dr. Willie Martinez Bilirubin [Mass/Vol] 0.3 mg/dL Normal 0.2-1.3 [facility] Comment on above: Performed By: #### C MP, T4, FT3, TSH, LIPID #### [facility] [address] [place] [address] Dr. Willie Martinez Calcium [Mass/Vol] 9.6 mg/dL Normal 8.4-10.2 [facility] Comment on above: Performed By: #### C MP, T4, FT3, TSH, LIPID #### [facility] [address] [place] [address] Dr. Willie Martinez Chloride [Moles/Vol] 106 mmol/L Normal 98-107 [facility] Comment on above: Performed By: #### C MP, T4, FT3, TSH, LIPID #### [facility] [address] [place] [address] Dr. Willie Martinez CO2 [Moles/Vol] 27.8 mmol/L Normal 22.0-30.0 [facility] Comment on above: Performed By: #### C MP, T4, FT3, TSH, LIPID #### [facility] [address] [place] [address] Dr. Willie Martinez Creatinine [Mass/Vol] 1.09 mg/dL Normal 0.66-1.25 [facility] Comment on above: Performed By: #### C MP, T4, FT3, TSH, LIPID #### [facility] [address] [place] [address] Dr. Willie Martinez EGFR-AF NIGERIEN >60 Normal >=60 [facility] Comment on above: Performed By: #### C MP, T4, FT3, TSH, LIPID #### [facility] [address] [place] [address] Dr. Willie Martinez EGFR-NON AF NIGERIEN >60 Normal >=60 [facility] Comment on above: Performed By: #### C MP, T4, FT3, TSH, LIPID #### [facility] [address] [place] [address] Dr. Willie Martinez Globulin (S) [Mass/Vol] 3.2 g/dL Normal [facility] Comment on above: Performed By: #### C MP, T4, FT3, TSH, LIPID #### [facility] [address] [place] [address] Dr. Willie Martinez Glucose [Mass/Vol] 114 mg/dL Critically high 74-106 T [facility] Comment on above: Performed By: #### C MP, T4, FT3, TSH, LIPID #### [facility] [address] [place] [address] Dr. Willie Martinez Potassium [Moles/Vol] 4.2 mmol/L Normal 3.4-5.0 [facility] Comment on above: Performed By: #### C MP, T4, FT3, TSH, LIPID #### [facility] [address] [place] [address] Dr. Willie Martinez Protein [Mass/Vol] 7.3 g/dL Normal 6.1-8.2 [facility] Comment on above: Performed By: #### C MP, T4, FT3, TSH, LIPID #### [facility] [address] [place] [address] Dr. Willie Martinez Sodium [Moles/Vol] 140 mmol/L Normal 137-145 [facility] Comment on above: Performed By: #### C MP, T4, FT3, TSH, LIPID #### [facility] [address] [place] [address] Dr. Willie Martinez Urea nitrogen [Mass/Vol] 37.0 mg/dL Critically high 9.0-20.0 [facility] Comment on above: Performed By: #### C MP, T4, FT3, TSH, LIPID #### [facility] [address] [place] [address] Dr. Willie Martinez Urea nitrogen/Creatinine [Mass ratio] 33.9 mg/mg Normal [facility] Comment on above: Performed By: #### C MP, T4, FT3, TSH, LIPID #### [facility] [address] [place] [address] Dr. Willie Martinez T4on 01-16-2022 T4 [Mass/Vol] 5.80 ug/dL Normal 5.53-11.00 [facility] Comment on above: Performed By: #### C MP, T4, FT3, TSH, LIPID #### [facility] [address] [place] [address] Dr. Willie Martinez TSHon 01-16-2022 TSH 1.869 uIU/mL Normal 0.470-4.680 [facility] Comment on above: Performed By: #### C MP, T4, FT3, TSH, LIPID #### [facility] [address] [place] [address] Dr. Willie Martinez TSH RANGE SEE BELOW Normal [facility] Comment on above: Result Comment: <0.3 4 UIU/ml HYPERTHYROID 0.34-5.60 UIU/ml EUTHYROID >5.60 UIU/ml HYPOTHYROID Performed By: #### C MP, T4, FT3, TSH, LIPID #### [facility] [address] [place] [address] [id number] [address] Willie Martinez POINT OF CARE GLUCOSEon Glucose [Mass/Vol] 118 mg/dL Critically high 74-106 T [facility] Comment on above: Performed By: #### P OCGLUC #### [facility] [address] [id number] Nancy Santos Covid-19 PCR (CVDTB)on SARS-CoV-2 (COVID-19) RNA DEVENDRA+probe Ql (Unsp spec) Not detected Normal NOT DETECTED [facility] Comment on above: Result Comment: This test is not yet approved or cleared by the [place] FDA. When there are no FDA-approved or cleared tests available, and other criteria are met, FDA can make tests available under an emergency access mechanism called an Emergency Use Authorization (EUA). The EUA for this test is supported by the [place] of Health and Human Service's (HHS's) declaration [...] consistent with SARS-CoV-2. Performed By: #### C VDTBH #### [facility] [address] [place], [place] [id number] Nancy Santos Vital Signs Date Time Vital Sign Value Performing Clinician Syeda webb 08-23-2024 10:25-0400 Body height 172.7 cm Pmh 1 [facility] [employer] [facility] 08-23-2024 10:25-0400 Body mass index (BMI) [Ratio] 37.4 kg/m2 Pmh 1 [facility] 08-23-2024 10:250400 Body weight 111.58 kg Pmh 1 [facility] [employer] [facility] 08-17-2024 10:30-0400 Body height 172.7 cm Constanza Morales [employer]ICE [employer] Work Phone: [facility] 08-17-2024 10:30-0400 Body mass index (BMI) [Ratio] 38.47 kg/m2 Constanza Morales VICE [employer] Work Phone: [facility] 08-17-2024 10:30-0400 Body weight 114.76 kg Constanza Morales VICE [employer] Work Phone: [facility] 08-17-2024 10:30-0400 Diastolic blood pressure 69 mm[Hg] Constanza Morales VICE [employer] Work Phone: [facility] 08-17-2024 10:30-0400 Heart rate 60 /min Constanza Morales [employer]ICE [employer] Work Phone: [facility] 08-17-2024 10:30-0400 Systolic blood pressure 115 mm[Hg] Constanza Morales [employer]ICE [employer] Work Phone: [facility] 10-29-2023 11:28-0500 SaO2% (BldA) [Mass fraction] 98 % [place] [facility] Comment on above: Order Comment: Specimen Type: ARTERIAL B LOOD SPECIMENOrdering Facility: [facility] Address: [address] [place] [address] Performed By: #### A LLBG ####[facility] LABCLIA [id number] [address] [place] [facility] 10-29-2023 07:36-0500 SaO2% (BldA) [Mass fraction] 99 % [place] [facility] Comment on above: Order Comment: Specimen Type: ARTERIAL B LOOD SPECIMENOrdering Facility: [facility] Address: [address] [place] [address] Performed By: #### A LLBG ####[facility] LABIA [id number] [address] [place] [id number] [place] 10-29-2023 05:21-0500 SaO2% (BldA) [Mass fraction] 98 % [place] [facility] Comment on above: Order Comment: Specimen Type: ARTERIAL B LOOD SPECIMENOrdering Facility: [facility] Address: [address] [place] [address] Performed By: #### A LLBG ####[facility] LABIA [id number] [address] [place] 10-29-2023 03:16-0500 SaO2% (BldA) [Mass fraction] 99 % [place] [facility] Comment on above: Order Comment: Specimen Type: ARTERIAL B LOOD SPECIMENOrdering Facility: [facility] Address: [address] [place] [address] Performed By: #### A LLBG ####[facility] [id number] [address] [place] 10-29-2023 00:41-0500 SaO2% (BldA) [Mass fraction] 99 % [place] [facility] Comment on above: Order Comment: Specimen Type: ARTERIAL B LOOD SPECIMENOrdering Facility: [facility] Address: [address] [place] [address] Performed By: #### A LLBG ####[facility] LABIA [id number] [place] [id number] [place] 10-28-2023 23:09-0500 SaO2% (BldA) [Mass fraction] 99 % [place] [facility] Comment on above: Order Comment: Specimen Type: ARTERIAL B LOOD SPECIMENOrdering Facility: [facility] Address: [address] [place] [address] Performed By: #### A LLBG ####[facility] LABIA [id number] [address] [place] 10-28-2023 21:47-0500 SaO2% (BldA) [Mass fraction] 99 % [place] [facility] Comment on above: Order Comment: Specimen Type: ARTERIAL B LOOD SPECIMENOrdering Facility: [facility] Address: [address] [place] [address] Performed By: #### A LLBG ####[facility] LABIA [id number] [place] [id number] [place] 10-28-2023 20:20-0500 SaO2% (BldA) [Mass fraction] 97 % [place] [facility] Comment on above: Order Comment: Specimen Type: ARTERIAL B LOOD SPECIMENOrdering Facility: [facility] Address: [address] [place] [address] Performed By: #### A LLBG ####[facility] LABIA [id number] [address] [place] 10-28-2023 19:36-0500 SaO2% (BldA) [Mass fraction] 100 % [place] [facility] Comment on above: Order Comment: Specimen Type: ARTERIAL B LOOD SPECIMENOrdering Facility: [facility] Address: [address] [place] [address] Performed By: #### A LLBG ####[facility] LABCLIA [id number] [place] [id number] [place] 10-28-2023 19:01-0500 SaO2% (BldA) [Mass fraction] 100 % [place] [facility] Comment on above: Order Comment: Specimen Type: ARTERIAL B LOOD SPECIMENOrdering Facility: [facility] Address: [address] [place] [address] Performed By: #### A LLBG ####[facility] LABIA [id number] [address] [place] 10-28-2023 18:31-0500 SaO2% (BldA) [Mass fraction] 100 % [place] [facility] Comment on above: Order Comment: Specimen Type: ARTERIAL B LOOD SPECIMENOrdering Facility: [facility] Address: [address] [place] [address] Performed By: #### A LLBG ####[facility] LABCLIA [id number] [place] [id number] [place] 10-28-2023 17:36-0500 SaO2% (BldA) [Mass fraction] 100 % [place] [facility] Comment on above: Order Comment: Specimen Type: ARTERIAL B LOOD SPECIMENOrdering Facility: [facility] Address: [address] [place] [address] Performed By: #### A LLBG ####[facility] LABIA [id number] [address] OF [facility] 10-28-2023 16:44-0500 SaO2% (BldA) [Mass fraction] 100 % [place] [facility] Comment on above: Order Comment: Specimen Type: ARTERIAL B LOOD SPECIMENOrdering Facility: [facility] Address: [address] [place] [address] Performed By: #### A LLBG ####[facility] LABIA [id number] [place] [id number] [place] 10-28-2023 14:46-0500 SaO2% (BldA) [Mass fraction] 98 % [place] [facility] Comment on above: Order Comment: Specimen Type: ARTERIAL B LOOD SPECIMENOrdering Facility: [facility] Address: [address] [place] [address] Performed By: #### A LLBG ####[facility] LABCLIA [id number] [place] [id number] [place] 10-27-2023 09:26-0500 Diastolic blood pressure 80 mm[Hg] Rosalia Trinidad MD Work Phone: [facility] 10-27-2023 09:26-0500 Systolic blood pressure 118 mm[Hg] Rosalia babb MD Work Phone: [facility] 10-27-2023 09:25-0500 Body height 172.7 cm Rosalia Trinidad MD Work Phone: [facility] 10-27-2023 09:25-0500 Body weight 102.51 kg Rosalia Trinidad MD Work Phone: [facility] 10-27-2023 09:25-0500 Heart rate 86 /min Rosalia Trinidad MD Work Phone: [facility] 10-27-2023 09:25-0500 Respiratory rate 14 /min Rosalia Trinidad MD Work Phone: [facility] 10-27-2023 09:25-0500 SaO2% (BldA) [Mass fraction] 95 % Rosalia Trinidad MD Work Phone: [facility] Encounters Encounter Date Encounter Type Care Provider Facility Start: 09-01-2024 End: 09-01-2024 Telephone encounter Bridget Gtz CMA [facility] General Surgery Start: 08-29-2024 End: 08-29-2024 Evaluation and management of inpatient SHARITA Reyes BUSTOSSANDRAAndrew [facility] Start: 08-23-2024 End: 08-23-2024 ambulatory [facility] Pat Phone Call Provider 1 [facility] - Pre Ad[facility] Start: 08-23-2024 End: 08-23-2024 Telephone encounter Rosalia Trinidad MD Work Phone: Cardiology Comment on above: Medication Question (Can pt stop taking his 81 mg of baby aspirin before his colonoscopy on Wednesday 08/29?) Start: 08-23-2024 End: 08-23-2024 ambulatory EMMANUEL CRANE [facility] Start: 08-17-2024 End: 08-17-2024 Office outpatient new 30 minutes Constanza Morales [employer] Work Phone: [facility] General Surgery Comment on above: Anemia, unspecified type (Primary Dx); Loose stools Start: 08-17-2024 End: 08-17-2024 ambulatory [facility] Darrius MORALES [facility] Start: 06-14-2024 End: 06-14-2024 ambulatory ROSALIA TRINIDAD Facility:[facility] Start: 06-14-2024 End: 06-14-2024 Patient encounter procedure Rosalia Trinidad MD Work Phone: Cardiology Comment on above: S/P CABG x 3 (Primar y Dx); Obesity (BMI 30.0-34.9); Hypertension goal BP (blood pressure) < 140/80; Controlled type 2 diabetes mellitus without complication, without long-term current use of insulin (HCC); Coronary stent restenosis, subsequent encounter Start: 06-14-2024 End: 06-14-2024 ambulatory ROSALIA TRINIDAD Facility:[facility] Start: 05-27-2024 Telephone encounter Rosalia frost MD Work Phone: Cardiology Comment on above: Appointment (resched uled) Start: 05-12-2024 Orders Only Rosalia rizvi MD Work Phone: Cardiology Comment on above: S/P CABG x 3 (Primar y Dx); Controlled type 2 diabetes mellitus without complication, without long-term current use of insulin (HCC); Primary hypertension Start: 03-21-2024 End: 03-23-2024 ambulatory [facility] Start: 03-17-2024 End: 03-23-2024 ambulatory [facility] Start: 03-16-2024 End: 03-23-2024 ambulatory [facility] Start: 03-14-2024 End: 03-23-2024 ambulatory [facility] Start: 03-09-2024 End: 03-23-2024 ambulatory EMMANUEL Kimber [facility] Start: 03-09-2024 End: 03-23-2024 ambulatory EMMANUEL Kimber [facility] [facility] Start: 03-07-2024 End: 03-07-2024 ambulatory CARROLL Kimber [facility] Start: 03-07-2024 End: 03-23-2024 ambulatory CARROLL Kimber [facility] Start: 03-03-2024 End: 03-03-2024 ambulatory EMMANUEL Kimber [facility] Start: 03-02-2024 End: 03-23-2024 ambulatory [facility] Start: 03-02-2024 End: 03-23-2024 ambulatory CARROLL Kimber [facility] Start: 02-29-2024 End: 03-23-2024 ambulatory [facility] Start: 02-25-2024 End: 02-25-2024 ambulatory [facility] Start: 02-24-2024 End: 03-23-2024 ambulatory [facility] Start: 02-24-2024 End: 03-23-2024 ambulatory [facility] Start: 02-22-2024 End: 02-22-2024 ambulatory [facility] Start: 02-22-2024 End: 03-23-2024 ambulatory [facility] Start: 02-18-2024 End: 02-18-2024 Patient encounter procedure Pm Cardiac Rehab Exercise 1 [facility] Start: 02-18-2024 End: 02-18-2024 ambulatory [facility] Start: 02-17-2024 End: 02-17-2024 Patient encounter procedure Pm Cardiac Rehab Exercise 1 [facility] Card[facility] Start: 02-17-2024 End: 02-17-2024 ambulatory [facility] Start: 02-15-2024 End: 02-15-2024 Patient encounter procedure [facility] Cardiac Rehab Exercise 1 [facility] Start: 02-15-2024 End: 02-15-2024 ambulatory [facility] Start: 02-11-2024 End: 02-11-2024 Patient encounter procedure Pm Cardiac Rehab Exercise 1 [facility] Start: 02-11-2024 End: 02-11-2024 ambulatory EMMANUEL M [facility] Start: 02-10-2024 End: 02-22-2024 ambulatory EMMANUEL Kimber [facility] Start: 02-08-2024 End: 02-08-2024 Patient encounter procedure [facility] Cardiac Rehab Exercise 1 [facility] Start: 02-08-2024 End: 02-08-2024 ambulatory [facility] Start: 02-04-2024 End: 02-04-2024 ambulatory CARROLL Kimber [facility] Start: 02-03-2024 End: 02-03-2024 ambulatory [facility] Start: 02-03-2024 End: 02-03-2024 Patient encounter procedure [facility] Cardiac Rehab Therapist 1 [facility] Start: 02-01-2024 End: 02-01-2024 Patient encounter procedure [facility] Cardiac Rehab Therapist 1 [facility] Start: 02-01-2024 End: 02-01-2024 ambulatory [facility] Start: 01-28-2024 End: 01-28-2024 Patient encounter procedure Pm Cardiac Rehab Therapist 1 [facility] Start: 01-28-2024 End: 01-28-2024 ambulatory [facility] Start: 01-27-2024 End: 01-27-2024 Patient encounter procedure Pm Cardiac Rehab Therapist 1 [facility] Start: 01-27-2024 End: 01-27-2024 ambulatory EMMANUEL M [facility] Start: 01-25-2024 End: 01-25-2024 ambulatory EMMANUEL M [facility] Start: 01-21-2024 End: 01-21-2024 Patient encounter procedure [facility] Cardiac Rehab Therapist 1 [facility] Start: 01-21-2024 End: 01-21-2024 ambulatory CARROLL Kimber [facility] Start: 01-20-2024 End: 01-20-2024 Patient encounter procedure Pm Cardiac Rehab Therapist 1 [facility] Start: 01-20-2024 End: 01-20-2024 ambulatory CARROLL Kimber [facility] Start: 01-18-2024 End: 01-18-2024 ambulatory [facility] Start: 01-14-2024 End: 01-14-2024 Patient encounter procedure [facility] Cardiac Rehab Therapist 1 [facility] Start: 01-14-2024 End: 01-14-2024 ambulatory [facility] Start: 01-13-2024 End: 01-13-2024 ambulatory CARROLL Kimber [facility] Start: 01-11-2024 End: 01-11-2024 Patient encounter procedure [facility] Cardiac Rehab Therapist 1 [facility] Start: 01-11-2024 End: 01-11-2024 ambulatory [facility] Start: 01-07-2024 End: 01-07-2024 ambulatory [facility] Start: 01-06-2024 End: 01-06-2024 Patient encounter procedure Pm Cardiac Rehab Therapist 1 [facility] Start: 01-06-2024 End: 01-06-2024 ambulatory [facility] Start: 01-05-2024 ambulatory Rosalia rizvi MD Work Phone: Cardiology Comment on above: Return to Work Date Start: 01-05-2024 E-mail encounter fro m caregiver Rosalia Trinidad MD Work Phone: [facility] Start: 01-04-2024 Documentation procedure Jossy Ruggiero QUINCY Work Phone: [facility] Start: 01-04-2024 End: 01-04-2024 Patient encounter procedure [facility] Cardiac Rehab Therapist 1 [facility] Start: 01-04-2024 End: 01-04-2024 ambulatory [facility] Start: 12-31-2023 End: 12-31-2023 Patient encounter procedure [facility] Cardiac Rehab Therapist 1 [facility] Start: 12-31-2023 End: 12-31-2023 ambulatory EMMANUEL Quiroga [facility] Start: 12-30-2023 Telephone encounter Rosalia frost MD Work Phone: Cardiology Comment on above: RTW Date Start: 12-30-2023 End: 12-30-2023 Patient encounter procedure [facility] Cardiac Rehab Therapist 1 [facility] Start: 12-30-2023 End: 12-30-2023 ambulatory EMMANUEL Quiroga Sherly [facility] Start: 12-28-2023 End: 12-28-2023 Patient encounter procedure [facility] Cardiac Rehab Therapist 1 [facility] Start: 12-28-2023 End: 12-28-2023 ambulatory EMMANUEL M [facility] Start: 12-24-2023 End: 12-24-2023 Patient encounter procedure [facility] Cardiac Rehab Therapist 1 [facility] Start: 12-24-2023 End: 12-24-2023 ambulatory EMMANUEL Quiroga [facility] Start: 12-23-2023 End: 12-23-2023 Patient encounter procedure [facility] Cardiac Rehab Therapist 1 [facility] Start: 12-23-2023 End: 12-23-2023 ambulatory CARROLL Kimber [facility] Start: 12-21-2023 End: 12-21-2023 Patient encounter procedure [facility] Cardiac Rehab Therapist 1 [facility] Start: 12-21-2023 End: 12-21-2023 ambulatory [facility] Start: 12-17-2023 End: 12-17-2023 Patient encounter procedure [facility] Cardiac Rehab Therapist 1 [facility] Start: 12-17-2023 End: 12-17-2023 ambulatory [facility] Start: 12-16-2023 End: 12-16-2023 Patient encounter procedure [facility] Cardiac Rehab Therapist 1 [facility] Start: 12-16-2023 End: 12-16-2023 ambulatory [facility] Start: 12-14-2023 End: 12-14-2023 Patient encounter procedure [facility] Cardiac Rehab Therapist 1 [facility] Start: 12-14-2023 End: 12-14-2023 ambulatory [facility] Start: 12-11-2023 End: 12-11-2023 ambulatory [facility] Start: 12-08-2023 End: 12-08-2023 [facility] Start: 12-04-2023 End: 12-04-2023 [facility]ulatory [facility] Start: 12-04-2023 End: 12-04-2023 ambulatory ROSALIA C [facility]PFENDORFER Facility:[facility] Start: 11-10-2023 End: 11-10-2023 ambulatory COCO BATISTA Facility:[facility] Start: 11-03-2023 Telephone encounter Valentina Duffy [facility] Comment on above: Follow Up Phone Call ( follow up call all clear. /) Start: 10-30-2023 Telephone encounter Rosalia frost MD Work Phone: Cardiology Comment on above: Patient Update Start: 10-28-2023 End: 11-02-2023 Evaluation and management of inpatient COCO Quiroga KINGSLEY Facility:[facility] Start: 10-28-2023 End: 10-28-2023 ambulatory COCO BATISTA Facility:[facility] Start: 10-27-2023 End: 10-27-2023 ambulatory COCO BATISTA Facility:[facility] Start: 10-27-2023 End: 10-27-2023 Admission to same day surgery center Anesthesia Clearance Work Phone: [facility] Work Phone: Start: 10-27-2023 End: 10-27-2023 Patient encounter procedure Anesthesia Clearance Work Phone: Cardiothoracic Comment on above: Encounter for preope rative anesthesiology assessment for cardiac surgery (Primary Dx) Pre-op exam (Primary Dx); Preop testing Start: 10-27-2023 End: 10-27-2023 Preprocedural examination done [facility] Work Phone: [facility] Start: 10-27-2023 End: 10-27-2023 ambulatory ANAKHANNA Kimber BATISTA Facility:[facility] Start: 10-27-2023 End: 10-27-2023 ambulatory EMMANUEL Quiroga Sherly Facility:[facility] Start: 10-27-2023 End: 10-27-2023 Patient encounter status Rosalia Trinidad MD Work Phone: [facility] Start: 10-27-2023 End: 10-27-2023 Subsequent hospital visit by physician Xr Chest Main J1 Work Phone: Radiology Comment on above: 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] Start: 10-27-2023 End: 10-27-2023 ambulatory ANACLEMENCIA Quiroga KINGSLEY Facility:[facility] Start: 10-27-2023 Encounter for preprocedural cardiovascular examination COCO BATISTA [facility] Start: 10-27-2023 End: 10-27-2023 ambulatory ROSALIA TRINIDAD Facility:[facility] Start: 10-27-2023 End: 10-27-2023 Patient encounter procedure Rosalia Trinidad MD Work Phone: Cardiology Comment on above: 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) (Primary Dx); Primary hypertension; Controlled type 2 diabetes mellitus without complication, without long-term current use of insulin (HCC); Obesity (BMI 30.0-34.9); Coronary stent restenosis, subsequent encounter Start: 10-26-2023 End: 10-30-2023 Patient encounter status Rosalia Trinidad MD Work Phone: [facility] Start: 10-05-2023 Patient encounter status Coco Batista MD Work Phone: [facility] Start: 10-05-2023 Telephone encounter Coco Batista MD Work Phone: Cardiothoracic Comment on above: Insurance Inquiry Referral Information ; Cardiac Preop Checklist Start: 09-29-2023 ambulatory [facility] Start: 09-17-2023 End: 09-18-2023 ambulatory [facility] Start: 09-17-2023 End: 09-17-2023 ambulatory [facility] Start: 08-25-2023 ambulatory [facility] Start: 08-24-2023 End: 08-25-2023 ambulatory [facility] Start: 08-24-2023 End: 08-24-2023 Encounter for preprocedural cardiovascular examination [facility] Start: 08-24-2023 End: 08-24-2023 ambulatory [facility] Start: 07-28-2023 End: 07-29-2023 ambulatory [facility] Start: 07-28-2023 ambulatory [facility] Start: 07-02-2023 End: 07-03-2023 ambulatory [facility] Start: 07-02-2023 End: 07-02-2023 ambulatory [facility] Start: 06-12-2023 End: 06-12-2023 ambulatory [facility] Start: 01-18-2022 End: 01-18-[address] EMMANUEL CRANE Facility:[facility] Start: 01-17-2022 Encounter for genera l adult medical examination without abnormal findings DR EMMANUEL CRANE [facility] Start: 01-16-2022 End: 01-17-[address] EMMANUEL CRANE Facility:[facility] Start: 01-16-2022 End: 01-17-2022 Encounter for general adult medical examination without abnormal findings DR EMMANUEL CRANE Facility:[facility] Start: 02-27-2021 Encounter for preprocedural laboratory examination DR SHARITA SIMS [facility] Start: 02-27-2021 End: 02-27-[address] EMMANUEL CRANE Facility:[facility] Start: 02-22-2021 End: 02-22-[address] SHARITA SIMS Facility:[facility] Start: 02-22-2021 End: 02-22-2021 Encounter for preprocedural laboratory examination DR SHARITA SIMS Facility:[facility] Procedures Date Procedure Procedure Detail Performing Clinician Start: 08-29-2024 Colonoscopy Bridget Cruz ia SURVEILLANCE [employer]ER[employer] TECHNICIAN Start: 12-31-2023 Gluc bld gluc mntr d ev cleared fda spec home use Emmanuel Crane MD Work Phone: Start: 12-30-2023 Gluc bld gluc mntr d ev cleared fda spec home use Emmanuel Crane MD Work Phone: Start: 12-28-2023 Gluc bld gluc mntr d ev cleared fda spec home use Emmanuel Crane MD Work Phone: Start: 12-24-2023 Gluc bld gluc mntr d ev cleared fda spec home use Emmanuel Crane MD Work Phone: Start: 12-23-2023 Gluc bld gluc mntr d ev cleared fda spec home use Emmanuel Crane MD Work Phone: Start: 12-21-2023 Gluc bld gluc mntr d ev cleared fda spec home use Emmanuel Crane MD Work Phone: Start: 12-17-2023 Gluc bld gluc mntr d ev cleared fda spec home use Emmanuel Crane MD Work Phone: Start: 12-16-2023 Gluc bld gluc mntr d ev cleared fda spec home use Emmanuel Crane MD Work Phone: Start: 12-14-2023 Gluc bld gluc mntr d ev cleared fda spec home use Emmanuel Crane MD Work Phone: Start: 12-09-2023 History of coronary artery bypass grafting S/P CABG x 3 Rosalia Trinidad MD Work Phone: Start: 12-04-2023 Echocardiography ANGELO BATISTA Start: 10-27-2023 Iadna s aureus ampli fied probe tq Coco Batista MD Work Phone: Start: 10-27-2023 Echocardiography ANGELO BATISTA Start: 10-27-2023 Antibody screen COCO BATISTA Comment on above: Order Comment: Speci men Type: BLOOD SPECIMENOrdering Facility: [facility] Address: [address] [place] [address] Performed By: #### T [id number] ####CC [facility] [id number] [address] [place] Start: 01-16-[address] BENJAMIN CRANE Comment on above: Performed By: #### P [facility] #### [facility] [address] [place] [address] Dr. 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 3 Rosalia Trinidad MD Work Phone: Plan of Treatment Date Care Activity Detail Author Start: 08-29-2029 Screening for malignant neoplasm of colon Colonoscopy [facility] Start: 01-16-2027 Prostate Cancer Screening Discussion Prostate Cancer Screening Discussion [facility] Start: 01-16-2027 Prostate specific antigen measurement Prostate Cancer Screening Discussion [facility] Start: 08-30-2025 Pneumococcal Vaccine: 65+ (3 - PPSV23 or PCV20) Pneumococcal Vaccine: 65+ (3 - PPSV23 or PCV20) [facility] Start: 08-30-2025 Pneumococcal Vaccine: 65+ (3 of 3 - PPSV23 or PCV20) Pneumococcal Vaccine: 65+ (3 of 3 - PPSV23 or PCV20) [facility] Start: 08-29-2025 Adult BMI Screening Adult BMI Screening [facility] Start: 08-29-2025 Tobacco Screening Tobacco Screening [facility] Start: 08-23-2025 Adult BMI Screening Adult BMI Screening [facility] Start: 08-23-2025 Tobacco Screening Tobacco Screening [facility] Start: 08-17-2025 Adult BMI Screening Adult BMI Screening [facility] Start: 08-17-2025 Tobacco Screening Tobacco Screening [facility] Start: 06-14-2025 Hepatitis B surface antibody level LDL Cholesterol [facility] Start: 12-15-2024 Hemoglobin A1c measurement HbA1C [facility] Start: 12-08-2024 BP Controlled (<130/80) BP Controlled (<130/80) [facility] Start: 10-31-2024 Hepatitis B surface antibody level LDL Cholesterol [facility] Start: 08-29-2024 End: 08-29-2024 Admission to same day surgery center 08/29/2024 10:15 AM EDT - 08/29/2024 11:00 AM EDT Surgery [facility] Surgery [address] [place] [address] [place] [address] [place] [address] ESOPHAGOGASTRODUODENOSCOPY DIAGNOSTIC [13558 (CPT )] [facility] Surgery Comment on above: ESOPHAGOGASTRODUODENOSCOPY DIAGNOSTIC [4 1641 (CPT )] Start: 08-29-2024 End: 08-29-2024 Anesthesia consultation 08/29/2024 10:15 AM EDT Anesthesia Event [facility] [address] [place] [id number] Lior Shine, DO [address] [place] [address] [facility] Start: 08-29-2024 End: 08-29-2024 Colonoscopy flx dx w/collj spec when pfrmd COLONOSCOPY DIAGNOSTIC / SCREENING anemia 08/29/2024 10:15 AM EDT [facility] Start: 08-29-2024 End: 08-29-2024 Esophagogastroduodenoscopy transoral diagnostic ESOPHAGOGASTRODUODENOSCOPY DIAGNOSTIC anemia 08/29/2024 10:15 AM EDT [facility] Start: 08-29-2024 Subsequent hospital visit by physician 08/29/2024 10:15 AM EDT Hospital Encounter [facility] [address] [place] [address] Sharita Sims, [address] [place], [place] [id number] [facility] Start: 08-23-2024 End: 08-23-2024 ambulatory 08/23/2024 2:40 PM EDT Suppo rt Visit [facility] - Pre Admit [address] [place] [phone] [facility] - Pre Admit Start: 07-24-2024 Covid-19 Vaccine ( season) Covid-19 Vaccine ( season) [facility] Start: 07-24-2024 Influenza vaccination [facility] Start: 06-01-2024 End: 06-01-2024 Patient encounter procedure 06/01/2024 10:30 AM EDT Of fice Visit Cardiology [address] [place] [address] Rosalia Trinidad MD [address] [place] [address] Clinician, Interventional [address] [place] [address] DX: Controlled type 2 diabetes mellitus without [...] (HCC) Primary hypertension Expected: 05/12/2024, Expires: 08/11/2024 [facility] Comment on above: Expected: 05/12/2024, Expires: 4 Start: 05-12-2024 End: 08-11-2024 Hemoglobin A1c in Blood HEMOGLOBIN A1C Lab Routine S /P CABG x 3 Controlled type 2 diabetes mellitus without complication, without long-term current use of insulin (HCC) Primary hypertension Expected: 05/12/2024, Expires: 08/11/2024 [facility] Comment on above: Expected: 05/12/2024, Expires: 4 Start: 05-12-2024 End: 08-11-2024 Lipid 1996 panel - Serum or Plasma LIPID PANEL BASIC Lab Routine S/P CABG x 3 Controlled type 2 diabetes mellitus without complication, without long-term current use of insulin (HCC) Primary hypertension Expected: 05/12/2024, Expires: 08/11/2024 [facility] Comment on above: Expected: 05/12/2024, Expires: Start: 04-27-2024 Hemoglobin A1c measurement HbA1C [facility] Start: 04-27-2024 Hemoglobin A1c/Hemoglobin.total in Blood HbA1C [facility] Start: 03-21-2024 End: 03-21-2024 Clinical Support 03/21/2024 12:45 PM EDT Clinical Support [facility] Cardiac Rehab [address] [place] [address] [facility] Start: 03-17-2024 End: 03-17-2024 Clinical Support 03/17/2024 12:45 PM EDT Clinical Support [facility] Cardiac Rehab [address] [place] [address] [facility] Start: 03-16-2024 End: 03-16-2024 Clinical Support 03/16/2024 12:45 PM EDT Clinical Support [facility] Cardiac Rehab [address] [place] [address] [facility] Start: 03-14-2024 End: 03-14-2024 Patient encounter procedure [facility] Start: 03-10-2024 End: 03-10-2024 Patient encounter procedure [facility] Start: 03-09-2024 End: 03-09-2024 Patient encounter procedure [facility] Start: 03-07-2024 End: 03-07-2024 Patient encounter procedure [facility] Start: 03-03-2024 End: 03-03-2024 Patient encounter procedure [facility] Start: 03-02-2024 End: 03-02-2024 Patient encounter procedure [facility] Start: 02-29-2024 End: 02-29-2024 Patient encounter procedure [facility] Start: 02-25-2024 End: 02-25-2024 Patient encounter procedure [facility] Start: 02-24-2024 End: 02-24-2024 Patient encounter procedure [facility] Start: 02-22-2024 End: 02-22-2024 Patient encounter procedure [facility] Start: 02-18-2024 End: 02-18-2024 Patient encounter procedure 02/18/2024 1:00 PM EDT Off ice Visit [facility] Cardiac Rehab [address] [place] [address] [facility] Start: 02-17-2024 End: 02-17-2024 Patient encounter procedure 02/17/2024 1:00 PM EDT Off ice Visit [facility] Cardiac Rehab [address] [place] [address] [facility] Start: 02-15-2024 End: 02-15-2024 Patient encounter procedure 02/15/2024 1:00 PM EDT Off ice Visit [facility] Cardiac Rehab [address] [place] [address] [facility] Start: 02-11-2024 End: 02-11-2024 Patient encounter procedure 02/11/2024 1:00 PM EDT Off ice Visit [facility] Cardiac Rehab [address] [place] [address] [facility] Start: 02-10-2024 End: 02-10-2024 Patient encounter procedure 02/10/2024 1:00 PM EDT Off ice Visit [facility] [address] [place] [address] [facility] Start: 02-08-2024 End: 02-08-2024 Patient encounter procedure 02/08/2024 1:00 PM EDT Off ice Visit [facility] Cardiac Rehab [address] [place] [address] [facility] Start: 02-04-2024 End: 02-04-2024 Patient encounter procedure 02/04/2024 1:00 PM EDT Off ice Visit [facility] [address] [place] [address] [facility] Start: 02-03-2024 End: 02-03-2024 Patient encounter procedure 02/03/2024 1:00 PM EDT Off ice Visit [facility] [address] [place] [address] [facility] Start: 02-01-2024 End: 02-01-2024 Patient encounter procedure 02/01/2024 1:00 PM EDT Off ice Visit [facility] [address] [place] [address] [facility] [facility] Start: 01-28-2024 End: 01-28-2024 Patient encounter procedure 01/28/2024 1:00 PM EST Off ice Visit [facility] - Cardiac Rehab [address] [place] [address] [facility] - Cardiac Re[facility] Start: 01-27-2024 End: 01-27-2024 Patient encounter procedure 01/27/2024 1:00 PM EST Off ice Visit [facility] - Cardiac Rehab [address] [place] [address] [facility] Start: 01-25-2024 End: 01-25-2024 Patient encounter procedure 01/25/2024 1:00 PM EST Off ice Visit [facility] - Cardiac Rehab [address] [place] [address] [facility] Start: 01-21-2024 End: 01-21-2024 Patient encounter procedure 01/21/2024 1:00 PM EST Off ice Visit [facility] - Cardiac [facility]hab [address] [place] [address] [facility] - [facility] Start: 01-20-2024 End: 01-20-2024 Patient encounter procedure 01/20/2024 1:00 PM EST Off ice Visit [facility] - Cardiac Rehab [address] [place] [address] [facility] Start: 01-18-2024 End: 01-18-2024 Patient encounter procedure 01/18/2024 1:00 PM EST Off ice Visit [facility] - Cardiac Rehab [address] [place] [address] [facility] Start: 01-14-2024 End: 01-14-2024 Patient encounter procedure 01/14/2024 1:00 PM EST Off ice Visit [facility] - Cardiac [facility] [address] [place] [address] [facility] Start: 01-13-2024 End: 01-13-2024 Patient encounter procedure 01/13/2024 1:00 PM EST Off ice Visit [facility] - Cardiac [facility] [address] [place] [address] [facility] Start: 01-11-2024 End: 01-11-2024 Patient encounter procedure 01/11/2024 1:00 PM EST Off ice Visit [facility] - Cardiac [facility]hab [address] [place] [address] [facility] Start: 01-07-2024 End: 01-07-2024 Patient encounter procedure 01/07/2024 1:00 PM EST Off ice Visit [facility] - Cardiac [facility]hab [address] [place] [address] [facility] Start: 01-06-2024 End: 01-06-2024 Patient encounter procedure 01/06/2024 1:00 PM EST Off ice Visit [facility] Cardiac Rehab [address] [place] [address] [facility] Card[facility] Start: 01-04-2024 End: 01-04-2024 Patient encounter procedure 01/04/2024 1:00 PM EST Off ice Visit [facility] Cardiac Rehab [address] [place] [address] [facility] Start: 12-31-2023 End: 12-31-2023 Patient encounter procedure 12/31/2023 1:00 PM EST Off ice Visit [facility] - Cardiac Rehab [address] [place] [address] [facility] Card[facility] Start: 12-30-2023 End: 12-30-2023 Patient encounter procedure 12/30/2023 1:00 PM EST Off ice Visit [facility] - Cardiac Rehab [address] [place] [address] [facility] Card[facility] Start: 12-28-2023 End: 12-28-2023 Patient encounter procedure 12/28/2023 1:00 PM EST Off ice Visit [facility] - Cardiac Rehab [address] [place] [address] [facility] Start: 12-24-2023 End: 12-24-2023 Patient encounter procedure 12/24/2023 1:00 PM EST Off ice Visit [facility] Cardiac Rehab [address] [place] [address] [facility] Start: 12-23-2023 End: 12-23-2023 Patient encounter procedure 12/23/2023 1:00 PM EST Off ice Visit [facility] - Cardiac Rehab [address] [place] [address] [facility] Card[facility] Start: 12-21-2023 End: 12-21-2023 Patient encounter procedure 12/21/2023 1:00 PM EST Off ice Visit [facility] Cardiac Rehab [address] [place] [address] [facility] Start: 12-17-2023 End: 12-17-2023 Patient encounter procedure 12/17/2023 1:00 PM EST Off ice Visit [facility] Cardiac Rehab [address] [place] [address] [facility] Start: 12-16-2023 End: 12-16-2023 Patient encounter procedure 12/16/2023 1:00 PM EST Off ice Visit [facility] Cardiac Rehab [address] [place] [address] [facility] Start: 11-23-2023 Advance Directive Discussion Advance Directive Discussion [facility] Start: 11-23-2023 [facility]al [facility] Start: 11-23-2023 Depression Assessment Depression Assessment [facility] Start: 10-08-2023 End: 01-07-2024 aPTT in Platelet poor plasma by Coagulation assay ACTIVATED PTT Lab Routine Coronary artery disease of [place] artery of [place] heart with stable angina pectoris (HCC) Pre-operative cardiovascular examination 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) Expected: 10/08/2023 (Approximate), Expires: 01/07/2024 [facility] Work Phone: Comment on above: Expected: 10/08/2023 (Approximate), Expi res: 01/07/2024 Start: 10-08-2023 End: 01-07-2024 CBC W Auto Differential panel - Blood CBC + DIFF Lab Routine Coronary artery disease of [place] artery of [place] heart with stable angina pectoris (HCC) Pre-operative cardiovascular examination 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) Expected: 10/08/2023, Expires: 01/07/2024 [facility] Work Phone: Comment on above: Expected: 10/08/2023, Expires: 4 Start: 10-08-2023 End: 01-07-2024 Comprehensive metabolic 2000 panel - Serum or Plasma COMP METABOLIC PANEL Lab Routine Coronary artery disease of [place] artery of [place] heart with stable angina pectoris (HCC) Pre-operative cardiovascular examination 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) Expected: 10/08/2023, Expires: 01/07/2024 [facility] Work Phone: Comment on above: Expected: 10/08/2023, Expires: 4 Start: 10-08-2023 End: 01-07-2024 CONFIRM BLOOD TYPE CONFIRM BLOOD TYPE Blood Ban k Routine Coronary artery disease of [place] artery of [place] heart with stable angina pectoris (HCC) Pre-operative cardiovascular examination 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) Expected: 10/08/2023, Expires: 01/07/2024 [facility] Work Phone: Comment on above: Expected: 10/08/2023, Expires: 4 Start: 10-08-2023 End: 01-07-2024 Hemoglobin A1c in Blood HGB A1C Lab Routine Coronary artery disease of [place] artery of [place] heart with stable angina pectoris (HCC) Pre-operative cardiovascular examination 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) Expected: 10/08/2023 (Approximate), Expires: 01/07/2024 [facility] Work Phone: Comment on above: Expected: 10/08/2023 (Approximate), Expi res: 01/07/2024 Start: 10-08-2023 End: 01-07-2024 Lactate dehydrogenase [Enzymatic activity/volume] in Serum or Plasma LD LACTATE DEHYDRO Lab Routine Coronary artery disease of [place] artery of [place] heart with stable angina pectoris (HCC) Pre-operative cardiovascular examination 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) Expected: 10/08/2023, Expires: 01/07/2024 [facility] Work Phone: Comment on above: Expected: 10/08/2023, Expires: 4 Start: 10-08-2023 End: 01-07-2024 PT panel - Platelet poor plasma by Coagulation assay PROTHROMBIN TIME/PT Lab Routine Coronary artery disease of [place] artery of [place] heart with stable angina pectoris (HCC) Pre-operative cardiovascular examination 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) Expected: 10/08/2023 (Approximate), Expires: 01/07/2024 [facility] Work Phone: Comment on above: Expected: 10/08/2023 (Approximate), Expi res: 01/07/2024 Start: 10-08-2023 End: 01-07-2024 TYPE AND SCREEN,30 DAY TYPE AND SCREEN,30 DAY Blood Bank Routine Coronary artery disease of [place] artery of [place] heart with stable angina pectoris (HCC) Pre-operative cardiovascular examination 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) Expected: 10/08/2023, Expires: 01/07/2024 [facility] Work Phone: Comment on above: Expected: 10/08/2023, Expires: 4 Start: 10-08-2023 End: 01-07-2024 URINALYSIS, DIPSTICK ONLY URINALYSIS, DIPSTICK ONLY La b Routine Coronary artery disease of [place] artery of [place] heart with stable angina pectoris (HCC) Pre-operative cardiovascular examination 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) Expected: 10/08/2023, Expires: 01/07/2024 [facility] Work Phone: Comment on above: Expected: 10/08/2023, Expires: 4 Start: 07-24-2023 Covid-19 Vaccine () Covid-19 Vaccine ( season) [facility] Start: 07-24-2023 Influenza vaccination [facility] Start: 05-01-2023 Adult BMI Screening Adult BMI Screening [facility] Start: 05-01-2023 Tobacco Screening Tobacco Screening [facility] Start: 11-23-2022 Advance Directive Discussion Advance Directive Discussion [facility] Start: 11-23-2022 Depression Assessment Depression Assessment [facility] Start: 2022 Fall Risk Screening Fall Risk Screening [facility] Start: 2017 RSV Vaccine (1 - 1-dose 60+ series) RSV Vaccine (1 - 1-dose 60+ series) [facility] Start: 2017 RSV Vaccine (1 - Risk 60-74 years 1-dose series) RSV Vaccine (1 - Risk 60-74 years 1-dose series) [facility] Start: 2007 Administration of varicella zoster vaccine Zoster (Shingles) Vaccine (1 of 2) [facility] Start: 2007 Shingrix Vaccine (1 of 2) Shingrix Vaccine (1 of 2) [facility] Start: 2002 Cologuard (FIT-DNA) Cologuard (FIT-DNA) [facility] Start: 2002 Colonoscopy Colonoscopy [facility] Start: 2002 Colorectal Cancer Screening Colorectal Cancer Screening [facility] Start: [address] Colonography [facility] Start: 2002 Fecal Occult Blood Fecal Occult Blood [facility] Start: 2002 Screening for malignant neoplasm of colon [facility] Start: 2002 Sigmoidoscopy Sigmoidoscopy [facility] Start: 1976 DTaP,Tdap and Td Vaccines (1 - Tdap) DTaP,Tdap and Td Vaccines (1 - Tdap) [facility] Start: 1976 Urine microalbumin profile DTaP,Tdap,Td Vaccine (1 - Tdap) [facility] Start: 1975 Adult BMI Follow Up Plan Adult BMI Follow Up Plan [facility] Start: 1975 Annual PCP Team Chronic Disease Visit Annual PCP Team Chronic Disease Visit [facility] Start: 1975 Anxiety Screening Anxiety Screening [facility] Start: 1975 BP Controlled (<130/80) BP Controlled (<130/80) [facility] Start: 1975 Depression Screening Depression Screening [facility] Start: 1975 Hepatitis B surface antibody level LDL Cholesterol [facility] Start: 1975 Hepatitis C Screening Hepatitis C Screening [facility] Start: 1975 Hepatitis C screening Hepatitis C Screening [facility] Start: 1969 Depression Screening Depression Screening [facility] Start: 1967 3 comp foot exam completed Diabetic Foot Exam [facility] Start: 1967 Diabetic foot examination Diabetic Foot Exam [facility] Start: 1967 Glaucoma screening Dilated Retinal Exam [facility] Start: 1967 Hepatitis B screening Urine Albumin:Creatinine Ratio [facility] Start: 1967 Hepatitis C antibody, confirmatory test Dilated Retinal Exam [facility] Start: 1957 Covid-19 Vaccine (#1) Covid-19 Vaccine (#1) [facility] Start: 1957 Medicare Annual Wellness Visit Medicare Annual Wellness Visi t [facility] Cardiopulmonary rehabilitation C ardiopulmonary rehabilitation Cardiac Services Ordered: 03/09/2024 [facility] Comment on above: Ordered: 03/09/2024 CARDIOPULMONARY REHABILITATION C ARDIOPULMONARY REHABILITATION Cardiac Services [...] 02/24/2024 [facility] Comment on above: Ordered: 02/24/2024 Cardiopulmonary rehabilitation C ardiopulmonary rehabilitation Cardiac Services Ordered: 03/02/2024 [facility] Comment on above: Ordered: 03/02/2024 Cardiopulmonary rehabilitation C ardiopulmonary rehabilitation Cardiac Services Ordered: 03/07/2024 [facility] Comment on above: Ordered: 03/07/2024 End: 10-08-2024 ECG COMPLETE ECG COMPLETE ECG Routine Coronary artery disease of [place] artery of [place] heart with stable angina pectoris (HCC) Pre-operative cardiovascular examination 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) 1 Occurrences starting 10/08/2023 until 10/08/2024 [facility] Work Phone: Comment on above: 1 Occurrences starting 10/08/2023 until 10/08/2024 End: 05-12-2025 ECG COMPLETE ECG COMPLETE ECG Routine S/P CABG x 3 Controlled type 2 diabetes mellitus without complication, without long-term current use of insulin ([facility]) Primary hypertension 1 Occurrences starting 05/12/2024 until 05/12/2025 [facility] Work Phone: Comment on above: 1 Occurrences starting 05/12/2024 until 05/12/2025 End: 10-08-2024 Echocardiography ECHO Cardiology Routine Coronary artery disease of [place] artery of [place] heart with stable angina pectoris (HCC) Pre-operative cardiovascular examination 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) 1 Occurrences starting 10/08/2023 until 10/08/2024 [facility] Work Phone: Comment on above: 1 Occurrences starting 10/08/2023 until 10/08/2024 End: 08-17-2025 EGD / Colonoscopy EGD / Colonoscopy GI Routine Anemia, unspecified type 1 Occurrences starting 08/17/2024 until 08/17/2025 [facility] Work Phone: Comment on above: 1 Occurrences starting 08/17/2024 until 08/17/2025 End: 11-06-2024 Radiologic exam chest 2 views XR CHEST 2V FRONTAL/LAT Radiology Routine Coronary artery disease of [place] artery of [place] heart with stable angina pectoris (HCC) Pre-operative cardiovascular examination 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) 1 Occurrences starting 10/08/2023 until 11/06/2024 [facility] Work Phone: Comment on above: 1 Occurrences starting 10/08/2023 until 11/06/2024 Radiologic exam chest 2 views XR CHEST 2V FRONTAL/LAT Radiology Routine Coronary artery disease of [place] artery of [place] heart with stable angina pectoris (HCC) Pre-operative cardiovascular examination 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) 10/27/2023 11:24 AM EST [facility] Work Phone: [facility] Immunizations Immunization Date Immunization Notes Care Provider Manuel griffin 08-02-2021 influenza virus vaccine, unspecified formulation Rosalia Trinidad MD Work Phone: [facility] Payers Date Payer Category Payer Medicare [id number] 2024 Unknown [id number] 2022 Medicare [id number] 2022 Medicare [id number] 2013 Unknown [id number] [id number] 1959 Unknown [id number] 1957 Unknown [id number] 2.16.84 0.1.002843.3.579.2.593 1957 Unknown [id number] 2.16.84 0.1.789611.3.579.2.593 1957 Unknown [id number] 2.16.84 0.1.816401.3.579.2.593 1957 Unknown [id number] 2.16.84 0.1.518093.3.579.2.593 1957 Unknown [id number] 2.16.8 40.1.203227.3.579.2.1285 1957 Unknown [id number] 2.16.8 40.1.329849.3.579.2.1285 1957 Unknown [id number] 2.16.8 40.1.701789.3.579.2.1285 1957 Unknown [id number] 2.16.8 40.1.416591.3.579.2.1285 1957 Unknown [id number] 2.16.8 40.1.915896.3.579.2.1285 1957 Unknown [id number] 2.16.8 40.1.842189.3.579.2.1285 1957 Unknown [id number] 2.16.8 40.1.507887.3.579.2.1285 1957 Unknown [id number] 2.16.8 40.1.211417.3.579.2.1285 1957 Unknown [id number] 2.16.8 40.1.806068.3.579.2.1285 1957 Unknown [id number] 2.16.8 40.1.811264.3.579.2.1285 1957 Unknown [id number] 2.16.8 40.1.688350.3.579.2.1285 1957 Unknown [id number] 2.16.8 40.1.610566.3.579.2.1285 1957 Unknown [id number] 2.16.8 40.1.257493.3.579.2.1285 1957 Unknown [id number] 2.16.8 40.1.458821.3.579.2.1285 1957 Unknown [id number] 2.16.8 40.1.957703.3.579.2.1285 1957 Unknown [id number] 2.16.8 40.1.030816.3.579.2.1285 1957 Unknown [id number] 2.16.8 40.1.161556.3.579.2.1285 1957 Unknown [id number] 2.16.8 40.1.051245.3.579.2.1285 1957 Unknown [id number] 2.16.8 40.1.515310.3.579.2.1285 1957 Unknown [id number] 2.16.8 40.1.790641.3.579.2.1285 1957 Unknown [id number] 2.16.8 40.1.641686.3.579.2.1285 1957 Unknown [id number] 2.16.8 40.1.408537.3.579.2.1285 1957 Unknown [id number] 2.16.8 40.1.642192.3.579.2.1285 1957 Unknown [id number] 2.16.8 40.1.916877.3.579.2.1285 1957 Unknown [id number] 2.16.8 40.1.977166.3.579.2.1285 1957 Unknown [id number] 2.16.8 40.1.236424.3.579.2.1285 1957 Unknown [id number] 2.16.8 40.1.900099.3.579.2.1285 1957 Unknown [id number] 2.16.8 40.1.782015.3.579.2.1285 1957 Unknown [id number] 2.16.8 40.1.267953.3.579.2.1285 1957 Unknown [id number] 2.16.8 40.1.886373.3.579.2.1285 1957 Unknown [id number] 2.16.8 40.1.675392.3.579.2.1286 1957 Unknown [id number] 2.16.8 40.1.985728.3.579.2.1285 1957 Unknown [id number] 2.16.8 40.1.586671.3.579.2.1285 1957 Unknown [id number] 2.16.8 40.1.101407.3.579.2.1285 1957 Unknown [id number] 2.16.8 40.1.995208.3.579.2.1285 1957 Unknown [id number] 2.16.8 40.1.364297.3.579.2.1285 1957 Unknown [id number] 2.16.8 40.1.114021.3.579.2.1285 1957 Unknown [id number] 2.16.8 40.1.340341.3.579.2.1285 1957 Unknown [id number] 2.16.8 40.1.057289.3.579.2.1285 1957 Unknown [id number] 2.16.8 40.1.742138.3.579.2.1285 1957 Unknown [id number] 2.16.8 40.1.361315.3.579.2.1285 1957 Unknown [id number] 2.16.8 40.1.133064.3.579.2.1285 1957 Unknown [id number] 2.16.8 40.1.239734.3.579.2.1285 1957 Unknown [id number] 2.16.8 40.1.645902.3.579.2.1285 1957 Unknown [id number] 2.16.8 40.1.749629.3.579.2.1285 1957 Unknown [id number] 2.16.8 40.1.397037.3.579.2.1286 1957 Unknown [id number] 2.16.8 40.1.161271.3.579.2.128 1957 Unknown [id number] 2.16.8 40.1.819883.3.579.2.128 1957 Unknown [id number] 2.16.8 40.1.477132.3.579.2.1285 1957 Unknown [id number] 2.16.8 40.1.035336.3.579.2.128 1957 Unknown [id number] 2.16.8 40.1.321064.3.579.2.1285 1957 Unknown [id number] 2.16.8 40.1.024248.3.579.2.128 1957 Unknown [id number] 2.16.8 40.1.428742.3.579.2.1285 1957 Unknown [id number] 2.16.8 40.1.125621.3.579.2.128 1957 Unknown [id number] 2.16.8 40.1.798146.3.579.2.128 1957 Unknown [id number] 2.16.84 0.1.555688.3.579.2.128 1957 Unknown [id number] 2.16.84 0.1.540698.3.579.2.1286 Social History Date Type Detail Facility Start: 10-06-2023 Tobacco smoking stat us MNIS Tobacco smoking consumption unknown [facility] Start: 1955 Sex Assigned At Not on file [facility] Start: 12-31-2020 End: 10-27-2023 Gender identity Not on file [facility] Start: 04-13-2018 End: 10-27-2023 Tobacco smoking status MNIS Never smoked tobacco [facility] Start: 04-13-2018 End: 10-27-2023 Tobacco use and exposure Smokeless tobacco non-user [facility] Start: 10-27-2023 End: 06-14-2024 Alcohol intake Lifetime non-drinker (finding) [facility] Start: 12-31-2020 End: 10-27-2023 History of Social function [facility] National Score (1-100), lower number is lower risk 53 [facility] (I/We) worried whetiny er (my/our) food would run out before (I/we) got money to buy more. Never true [facility] In the past 12 month s, was there a time when you were not able to pay the mortgage or rent on time? No [facility] Start: 05-01-2022 End: 08-17-2024 Alcoholic beverage intake Current non-drinker of alcohol (finding) [facility] Procedure Code Equipment Code Equipment Origin al Text Equipment Identifier Dates Lens Iol Ultrase rt 18.5d - [id number] - [id number] Start: 05-01-2022 Goals Date Patient Goal Desired Activity /State Personal health goal Clinical Notes 06-12-2023 to 09-01-2024 Telephone Encounter - Bridget Gtz CMA - 09/01/2024 11:51 AM EDTTelephone Encounter - Bridget Gtz CMA - 09/01/2024 11:51 AM EDTTelephone Encounter - Bridget Gtz CMA - 09/01/2024 11:51 AM EDT Note Date [...] anti-inflammatory drugs and he should take omeprazole [id number] for 6 weeks only. Thanks, Dr. Nolan Spoke with patient regarding pathology results. Patient verbally understood with no further questions. Recall to be put in chart. documented in this encounter [facility] 09-01-2024 Telephone encounter Note ----- Message from Dr. Sharita Sims DO sent at 09/01/2024 11:04 AM EDT ----- Please let patient know that he had mild gastritis and he had a rectal polyp and I recommend repeat colonoscopy in 5 years. I recommend staying away from aspirin and nonsteroidal anti-inflammatory drugs and he should take omeprazole [id number] for 6 weeks only. Thanks, Dr. Nolan [facility] 09-01-2024 Telephone encounter Note Spoke with patient regarding pathology results. Patient verbally understood with no further questions. Recall to be put in chart. [facility] 08-23-2024 Miscellaneous Notes Preoperative Education Checklist- General Surgery date: 08/29/24 Surgery time: 1015 Arrival time: 0815 1. Bring a photo ID and your insurance card with you the day of surgery. You will check in at the main lobby of the [facility]- registration desk is straight ahead as soon as you walk in. Tell them you are here for surgery. 2. If you have a Living Will/Durable Power of [employer] Super[employer] for Health Care that is not on [...] after you have bathed. 5. NO nail surinamese/acrylic on at least one finger. If you are having a hand, wrist or foot surgery then all nail surinamese and artificial/acrylic nails must be removed from [...] please call the Preadmission Testing office at [phone], Mon.-Fri. 7 a.m.-3 p.m. Leave a voicemail [...] prior to procedure documented in this encounter [facility] 08-23-2024 Nurse Note Preoperative Education Checklist- General Surgery date: 08/29/24 Surgery time: 1015 Arrival time: 814 1. Bring a photo ID and your insurance card with you the day of surgery. You will check in at the main lobby of the [facility]- registration desk is straight ahead as soon as you walk in. Tell them you are here for surgery. 2. If you have a Living Will/Durable Power of Electric Motor Repair Supervisor for Health Care that is not on [...] after you have bathed. 5. NO nail surinamese/acrylic on at least one finger. If you are having a hand, wrist or foot surgery then all nail surinamese and artificial/acrylic nails must be removed from [...] please call the Preadmission Testing office at [phone], Mon.-Fri. 7 a.m.-3 p.m. Leave a voicemail [...] Stop taking 0 days prior to procedure [facility] [employer] [facility] 08-17-2024 History of Presen t illness Narrative Images from the original note were not included. Chief Complaint: Anemia History of Present Illness Roland Hong is a 69 y.o. male who presents to the office for anemia. He was referred by Dr. Crane. His last colonoscopy was in 2020 at [facility] with Dr. Sims significant for extensive diverticulosis. It was otherwise normal. He denies any current rectal bleeding, though he did see some bright red blood about a year ago. He denies any abdominal pain, constipation or diarrhea. He does report looser stools. 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 He is on aspirin daily. He follows with the [facility]. Review of Systems Constitutional: Negative for fever and unexpected weight change. HENT: Negative for trouble swallowing. Respiratory: Negative for shortness of breath. Cardiovascular: Negative for chest pain. Gastrointestinal: Negative for nausea, vomiting, abdominal pain, diarrhea, constipation, blood in stool and black tarry stool. Loose stools Genitourinary: Negative for dysuria and difficulty urinating. Musculoskeletal: Negative for gait problem. Skin: Negative for rash and wound. Neurological: Negative for dizziness, weakness and light-headedness. Hematological: Does not bruise/bleed easily. Psychiatric/Behavioral: Negative for confusion. Past Medical History: Diagnosis Date Diabetes mellitus type 2, [place] [place] Hyperlipidemia Hypertension Myocardial infarction [place] [place] Retinal detachment Visual impairment Past Surgical History: Procedure Laterality Date CARDIAC SURGERY 10/28/2023 TRIPPLE HEART BYPASS @ [facility] CORONARY ANGIOPLASTY WITH STENT PLACEMENT x 4, April 24, 2006 EXTRACTION CATARACT INTRAOCULAR LENS Right 05/01/2022 Performed by Natividad Poole MD at [facility] RETINAL DETACHMENT SURGERY No Known Allergies Current Outpatient Medications: allopurinoL (ZYLOPRIM) 100 mg tablet, Take 1 tablet (100 mg total) by mouth in the morning., Disp: , Rfl: ascorbic acid, vitamin C, (VITAMIN C) 1000 mg tablet, Take 1 tablet (1,000 mg total) by mouth in the morning., Disp: , Rfl: aspirin 81 mg, Take 1 tablet (81 mg total) by mouth in the morning., Disp: , Rfl: carvedilol (COREG) 25 mg tablet, 2 (two) times a day. Take 25 mg by mouth daily , Disp: , Rfl: carvediloL (COREG) 25 mg tablet, Take 1 tablet (25 mg total) by mouth., Disp: , Rfl: cholecalciferol, vitamin D3, 2,000 units capsule, Take 1 capsule (2,000 Units total) by mouth in the morning., Disp: , Rfl: cyanocobalamin, vitamin B-12, 1,000 mcg/mL drops, Take 2,500 mg by mouth in the morning., Disp: , Rfl: empagliflozin (JARDIANCE) 10 mg tablet tablet, JARDIANCE 10 MG TABLET, Disp: , Rfl: ezetimibe (ZETIA) 10 mg tablet, Take 1 tablet (10 mg total) by mouth., Disp: , Rfl: ferrous sulfate 325 (65 FE) mg tablet, Take by mouth., Disp: , Rfl: glimepiride (AMARYL) 2 mg tablet, Take 1 tablet (2 mg total) by mouth., Disp: , Rfl: isosorbide mononitrate (IMDUR) 30 mg 24 hr tablet, Take 1 tablet (30 mg total) by mouth daily., Disp: , Rfl: metFORMIN (GLUCOPHAGE) 1000 mg tablet, Take 1 tablet (1,000 mg total) by mouth in the morning and 1 tablet (1,000 mg total) in the evening. Take with meals., Disp: , Rfl: olmesartan-hydrochlorothiazide (BENICAR HCT) 40-25 mg per tablet, Take 1 tablet by mouth daily, Disp: , Rfl: pioglitazone (ACTOS) 30 mg tablet, , Disp: , Rfl: tamsulosin (FLOMAX) 0.4 mg capsule, Take 1 capsule (0.4 mg total) by mouth in the morning., Disp: , Rfl: ZINC ORAL, Take 50 mg by mouth in the morning., Disp: , Rfl: peg 3350-sod sulf,iueh-zrx-kjv 178.7-7.3-0.5 gram recon soln, Take 1 kit by mouth once daily for 1 dose. Please see instructional sheet given by physicians office., Disp: 1 each, Rfl: 0 Social History Socioeconomic History Marital status: Spouse name: Not on file Number of children: Not on file Years of education: Not on file Highest education level: Not on file Occupational History Not on file Tobacco Use Smoking status: Never Smokeless tobacco: Never Vaping Use Vaping status: Never Used Substance and Sexual Activity Alcohol use: No Drug use: Never Sexual activity: Defer Other Topics Concern Not on file Social History Narrative Not on file Social Determinants of Health Financial Resource Strain: Low Risk (10/29/2023) Received from [facility] Overall Financial Resource Strain (CARDIA) Difficulty of Paying Living Expenses: Not hard at all Food Insecurity: No Food Insecurity (08/17/2024) Hunger Screening Food Insecurity - Worry: Never True Food Insecurity - Inability: Never True Transportation Needs: No Transportation Needs (10/29/2023) Received from [facility] PRAPARE - Transportation Lack of Transportation (Medical): No Lack of Transportation (Non-Medical): No Physical Activity: Not on file Stress: Not on file Social Connections: Not on file Interpersonal Safety: Unknown (01/15/2024) Re[facility] from [facility] [place] Safety & Environment Fear of Current or Ex-Partner: Not on file Emotionally Abused: Not on file Physically Abused: Not on file Sexually Abused: Not on file Physically or Sexually Abused: Not on file Housing Instability: Low Risk (10/29/2023) Received from [facility] Housing Stability Vital Sign Unable to Pay for Housing in the Last Year: No Number of Places Lived in the Last Year: 1 Unstable Housing in the Last Year: No Family History Problem Relation Age of Onset Stomach cancer Mother Stroke Mother Cancer Father Prostate cancer Father Bone cancer Father Prostate cancer Brother Cancer Paternal Aunt Objective Physical Exam Constitutional: General: He is not in acute distress. Appearance: Normal appearance. He is not ill-appearing. HENT: Head: Normocephalic and atraumatic. Mouth/Throat: Mouth: Mucous membranes are moist. Eyes: Pupils: Pupils are equal, round, and reactive to light. Cardiovascular: Rate and Rhythm: Normal rate. Pulmonary: Effort: Pulmonary effort is normal. No respiratory distress. Abdominal: General: There is no distension. Musculoskeletal: General: Normal range of motion. Skin: General: Skin is warm and dry. Neurological: Mental Status: He is alert and oriented to person, place, and time. Mental status is at baseline. Vital Signs: Blood pressure 115/69, pulse 60, height 172.7 cm (5' 8 ), weight 114.8 kg (253 lb). Respiratory Source: No data recorded Admission Weight: Weight: 114.8 kg (253 lb) Labs Lab Results Component Value Date WBC 11.4 (H) 03/29/2016 HGB 14.1 03/29/2016 HCT 42.9 03/29/2016 MCV 80 (L) 03/29/2016 PLT 153 03/29/2016 Lab Results Component Value Date GLU 123 (H) 12/31/2023 CALCIUM 9.6 03/29/2016 K 3.7 03/29/2016 CO2 29 03/29/2016 CL 102 03/29/2016 BUN 23 03/29/2016 CREATININE 0.93 03/29/2016 No results found for: AMYLASE No results found for: LIPASE Lab Results Component Value Date ALT 26 10/08/2017 AST 18 10/08/2017 ALKPHOS 67 03/29/2016 No results found for: INR , PROTIME Assessment Anemia S/p CABG x3 in October 2023 on aspirin daily Plan EGD and colonoscopy to rule out GI source of anemia. Risks, benefits, and alternatives discussed with patient. Educated on bowel evacuation preparation. Patient verbalizes understanding and wishes to proceed. Hold aspirin 7 days prior. Office will check with Cardiology. Discussed adequate water and fiber intake for loose stools. Evaluation included: Preparing to see the patient (e.g., review of tests) Obtaining and/or reviewing separately obtained history Performing a medically appropriate examination and/or evaluation Counseling and educating the patient/family/caregiver Referring and communicating with other health rn progressive care unit Anemia, unspecified type [D64.9] ESVIN NIX [facility] General Surgery [place] This note was created with the assistance of a speech recognition program. While intending to generate a timely document that accurately reflects the content of the visit, no guarantee can be provided that every grammatical or spelling mistake has been or will be identified or corrected. Thank you for your understanding. ESVIN Nix 08/17/24 1116 documented in this encounter [facility] 06-15-2024 Note [facility] 06-15-2024 History of Presen t illness Narrative Images from the original note were not included. Heart, Vascular and Thoracic [place] [facility] Department of Cardiovascular Medicine SECTION OF INTERVENTIONAL CARDIOLOGY OUTPATIENT VISIT DATE June 15, 2024 OUTPATIENT VISIT TYPE ESTABLISHED PRIMARY CARE PHYSICIAN: Emmanuel Crane [address] [place] [address] REFERRING PHYSICIAN: Rosalia Trinidad [address] [facility] [address] CHIEF COMPLAINT: Patient presents with: Follow Up HISTORY OF PRESENT ILLNESS: Mr. Hong is a 69 year old male who presents today for follow-up visit . He denies . PAST CARDIAC HISTORY: See HPI PAST MEDICAL HISTORY Diagnosis Date Cataract bilateral, surgery Coronary artery disease Diabetes (HCC) Dyslipidemia Hiatal hernia Hypertension Myocardial infarction (HCC) Retinal tear 2018 PAST SURGICAL HISTORY Procedure Laterality Date APPENDECTOMY [...] 3 times weekly. Planning to join a [employer] for indoor exercises. He feels well. Has [...] niacin. CONTACT INFORMATION: Rosalia Trinidad M.D. Staff Dipper Machine Operator, Interventional Cardiology [facility] Department of Cardiovascular Medicine Heart and Vascular [place] [facility] Desk [address] [place] [address] Office - [phone] extension [phone] Office Appointments: [phone] extension [phone] documented in this encounter [facility] 05-27-2024 Telephone encounter Note Second attempt to reach patient. Patient states that he will discuss with his ride over the weekend and he will call the office on Thursday. [facility] 05-27-2024 Miscellaneous Notes Second attempt to reach patient. Patient states that he will discuss with his ride over the weekend and he will call the office on Thursday. Called patient to r/s appt due to unplanned provider absence Left VM on mobile number documented in this encounter [facility] 05-27-2024 Telephone encounter Note Called patient to r/s appt due to unplanned provider absence Left VM on mobile number [facility] 01-04-2024 History of Presen t [...] BMI Category: Obese class 2 (35.00- 39.99) [place] Body Weight: 69.6 kg Past Medical History: Past Medical History: Diagnosis Date Diabetes mellitus type 2, [place] [place] Hyperlipidemia Hypertension Myocardial infarction ([facility] Retinal detachment Visual impairment Past Surgical History: Past Surgical History: Procedure Laterality Date CARDIAC SURGERY CORONARY ANGIOPLASTY WITH STENT PLACEMENT x 4, April 24, 2006 EXTRACTION CATARACT INTRAOCULAR LENS Right 05/01/2022 Performed by Natividad Poole MD at [facility] RETINAL DETACHMENT SURGERY Medications: Current [...] Cardiac Diet & Low Fat handouts) and [place] [employer] Heart Healthy Guidelines. Patient exercised knowledge of the information based on the answers to the questions. Monitoring and Evaluation: The following goals were discussed with the patient: 1. Use the plate method and choose healthy foods for portion control and weight management. Follow the [place] [employer] recommendations when eating out, and [...] questions arise. QUINCY Bond RD Clinical Dietitian [facility] documented in this encounter [employer] 12-30-2023 Miscellaneous Notes Images from the original [...] Call back #: documented in this encounter [facility] 12-14-2023 Note [facility] 12-09-2023 Note [facility] 11-13-2023 Note [facility] 11-10-2023 Note [facility] 11-10-2023 Note [facility] 11-03-2023 Miscellaneous Notes 1. Have you noticed [...] Valentina Edge RN documented in this encounter [facility] 11-02-2023 Note [facility] 11-02-2023 Note [facility] 11-02-2023 Note [facility] 11-01-2023 Note [facility] 10-31-2023 Note [facility] 10-30-2023 Note [facility] 10-30-2023 Note [facility] 10-30-2023 Miscellaneous Notes Office rec'd call from [...] number for documentation. documented in this encounter [facility] 10-30-2023 Note [facility] 10-29-2023 Note [facility] 10-28-2023 Note [facility] 10-28-2023 Note [facility] 10-28-2023 Note [facility] 10-28-2023 Note [facility] 10-28-2023 History of Past i llness Narrative [...] of this encounter (statuses as of 10/30/2023) [facility]12-06-2023 History of Past illness Narrative* [...] of this encounter (statuses as of 11/03/2023) [facility]12-06-20[facility] History of Past illness Narrative* [...] of this encounter (statuses as of 12/30/2023) [facility]12-06-2023 History of Past illness Narrative* [...] of this encounter (statuses as of 01/05/2024) [facility]12[facility] Note [facility]12-05-2023 History and physical note* Olivia Downing RN [...] PAST SURGICAL HISTORY Procedure Laterality Date APPENDECTOMY 2002 HERNIA REPAIR HX PAST SURGICAL HISTORY OF hemorrhoids PCI/STENT 2005 stent x 3 RCA, 1 RPLB Social History Tobacco Use Smoking status: Never Smokeless tobacco: Never Vaping Use Vaping Use: Never used Substance Use Topics Alcohol use: Never Drug use: Never REVIEW OF SYSTEMS: GEN: Denies Complaints HEENT: Glasses / BILATERAL CATARACT SURGERY AND LEFT RETINA TEAR SURGERY DERM: Denies Dermatological Complaints MAPPING TECHNICIAN: Dizziness WITH STANDING UP TOO FAST OCCURS [...] dated CARDS APPT 10/27/23 [facility] History of Present illness Narrative* [...] 27, 2023 11:22 AM [facility] History of Present illness Narrative* Rosalia Trinidad MD - 10/27/2023 9:15 AM EST Images from the original note were not included. Heart and Vascular [place] [facility] Department of Cardiovascular Medicine SECTION OF INTERVENTIONAL CARDIOLOGY OUTPATIENT VISIT DATE October 26, 2023 OUTPATIENT VISIT TYPE NEW PRIMARY CARE PHYSICIAN: Emmanuel Crane [address] [place] [address] REFERRING PHYSICIAN: Coco Batista [address] [facility] [address] CHIEF COMPLAINT: New Pre op HISTORY OF PRESENT ILLNESS: Mr. Hong is a 68 year old male who presents today . NURSING INTAKE: Mr Hong is a 68 year old male from [place], [place]. He has a past medical history [...] then referred to cardiology (Dr Felix at [facility]) and underwent LHC showing severe CAD. He [...] SYNGO 07/02/23 Coronary angiogram Final Impressions: -Severe [place] CAD -100% occluded mid LAD immediately after [...] vertebral artery flow. Notes: Indication: Atherosclerosis of [place] coronary artery of [place] heart I25.10 - Dizziness - Giddiness - [...] others. CONTACT INFORMATION: Rosalia Trinidad M.D. Staff Dipper Machine Operator, Interventional Cardiology [facility] Department of Cardiovascular Medicine Heart and Vascular [place] [facility] Desk [place] [address] Office - [phone] extension [phone] Office Appointments: [phone] extension [phone] documented in [facility]12[facility] Miscellaneous Notes* Telephone Encounter - Natividad Hudson RN - 10/08/2023 12:32 PM EST Schedule surgery: CABG x 3 (2.5) 10/27-Cards, testing, TCI, add [place] 10/28-[facility] Please mail to patient. Patient accepted [...] for his review/plan of care. Roland Hong [id number] 68 year old Diagnosis: CAD Secondary Dx: [...] recs, films & ins. documented in [facility]11-13-[facility]23 Miscellaneous Notes* Telephone Encounter - Yuko Pfeiffer - 10/05/2023 3:24 PM EST IN documented in this encounterA[facility]11-07-2023 NotePatient ID: Roland Hong is [...] Duplex 08/24/23 IMPRESSION: Notes: Indication: Atherosclerosis of [place] coronary artery of [place] heart I25.10 - Dizziness - Giddiness - [...] vertebral artery flow. Notes: Indication: Atherosclerosis of [place] coronary artery of [place] heart I25.10 - Dizziness - Giddiness - [...] Mapping 08/24/23 IMPRESSION: Notes: Indication: Atherosclerosis of [place] Coronary Artery of [place] Heart - Coronary Heart Disease - Dizziness [...] Mapping 08/24/23 IMPRESSION: Notes: Indication: Atherosclerosis of [place] Coronary Artery of [place] Heart - Coronary Heart Disease - Dizziness [...] proximal upper arm. Notes: Indication: Atherosclerosis of [place] Coronary Artery of [place] Heart - Coronary Heart Disease - Dizziness [...] Left: Proximal brachial artery (more content not included)...[facility]10-03-2023 NoteSubjective Patient ID: Roland Hong is a [...] Duplex 08/24/23 IMPRESSION: Notes: Indication: Atherosclerosis of [place] coronary artery of [place] heart I25.10 - Dizziness - Giddiness - [...] vertebral artery flow. Notes: Indication: Atherosclerosis of [place] coronary artery of [place] heart I25.10 - Dizziness - Giddiness - [...] Mapping 08/24/23 IMPRESSION: Notes: Indication: Atherosclerosis of [place] Coronary Artery of [place] Heart - Coronary Heart Disease - Dizziness [...] Mapping 08/24/23 IMPRESSION: Notes: Indication: Atherosclerosis of [place] Coronary Artery of [place] Heart - Coronary Heart Disease - Dizziness [...] proximal upper arm. Notes: Indication: Atherosclerosis of [place] Coronary Artery of [place] Heart - Coronary Heart Disease - Dizziness [...] cm triphasic spectral Doppler (more content not included)...[facility]10-02-2023 NoteCT CHEST WITHOUT CONTRAST HISTORY: Pre-bypass open [...] low as reasonably achievable. Electronically signed: Calvin Candelario.[facility] 07-28-2023 NoteSubjective Patient ID: Roland Hong is a 68 y.o. male PMHx DM, HTN, HLD, W[place] in 2005 s/p stent placement, who presents [...] Affect: Mood normal. TTE 06/12/2023: 1 1 [place] [facility] Heart Station [address] Examination: Echocardiogram (Complete), Lumason Contrast Image Quality: [...] size. Normal right ventricula (more content not included)...[facility]08-10-2023 NotePatient: Roland Hong Procedure Information Date/Time: 07/02/23 0830 Procedure: Coronary angiography (Left) Location: [facility] INSIDE SALES SUPERVISOR 3 / [facility] (Cath) Providers: Yessi Burgos [...] Additional Equipment RequestsUnSelect [facility] Note Cardiology Clinic Note Chief Complaint: new patient to establish care HPI: Roland Hong is a 68 y.o. male male with a past medical history including HTN, HLD, CAD with [place] s/p PCI who is referred to Cardiology clinic for evaluation of chest pain and abnormal stress. Patient reports symptoms of chest pain with exertion over the past several months. He reports associated shortness of breath.. He denies any lower extremity edema, orthopnea, or PND. No near syncope or syncope. No additional complaint at this time. [place] with PCI was in 2005. Stress test [...] with possible revascularization -Proc (more content not included)...[facility] 06-12-2023 NoteNew patient here to establish care. Ref from Dr. Crane for abnormal stress test. He does have hx of CAD w/ PCI in 2005 at [facility]. Stress test was ordered for intermittent chest pain, radiating to his neck and back. Does get SOB w/ exertion and stress he says. Review of Systems Cardiovascular: Positive for chest pain, dyspnea on exertion and leg swelling (end of day). Musculoskeletal: Positive for back pain and neck pain. All other systems reviewed and are negative.[facility] Evaluation note* Diagnosis Pre-operative cardiovascular examination- Primary Coronary artery disease of [place] artery of [place] heart with stable angina pectoris (HCC) 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) Coronary artery disease of [place] artery of [place] heart with stable angina pectoris (HCC) Pre-operative cardiovascular examination 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) [facility] Coronary artery disease of [place] artery of [place] heart with stable angina pectoris (HCC)- Primary Primary hypertension Unspecified essential hypertension Controlled type 2 diabetes mellitus without complication, without long-term current use of insulin (HCC) Obesity (BMI 30.0-34.9) Obesity, unspecified Coronary stent restenosis, subsequent encounter Coronary artery disease of [place] artery of [place] heart with stable angina pectoris (HCC) Pre-operative cardiovascular examination 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) [facility] Encounter for preoperative anesthesiology assessment for cardiac surgery- Primary [facility] Pre-op exam- Primary Preoperative examination, unspecified Preop testing Preoperative examination, unspecified documented in this encounter [facility] ClinicEvaluation note* Diagnosis Coronary artery disease of [place] artery of [place] heart with stable angina pectoris (HCC) Pre-operative cardiovascular examination 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) documented in this [facility] Diagnosis S/P CABG x 3- Primary Postsurgical aortocoronary bypass status Controlled type 2 diabetes mellitus without complication, without long-term current use of insulin (HCC) Primary hypertension Unspecified essential hypertension documented in this encounter [facility] note* Diagnosis S/P CABG x 3- Primary Postsurgical aortocoronary bypass status Obesity (BMI 30.0-34.9) Obesity, unspecified Hypertension goal BP (blood pressure) < 140/80 Unspecified essential hypertension Controlled type 2 diabetes mellitus without complication, without long-term current use of insulin (HCC) Coronary stent restenosis, subsequent encounter documented in this encounter [facility] Diagnosis Anemia, unspecified type- Primary Loose stools Abnormal feces documented [facility] filedocument[facility] in [facility]ructionsNot on filedocumented in this encounter [facility]ructionsNot on filedocumented in this encounter [facility]ructionsNot on filedocumented in this encounter [facility] SystemInstructionsNot on filedocumented in this encounter [facility] SystemReason for referral (narrative)* Outpatient Procedure (Routine) - Pending Review Specialty Diagnoses / Procedures Referred By Carl fowler Referred To [facility] Diagnoses Coronary artery disease of [place] artery of [place] heart with stable angina pectoris (HCC) Pre-operative cardiovascular examination 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) Procedures ECHO ECHO TTHRC R-T 2D W/WOM-MODE COMPL SPEC&COLR D Coco Batista MD [address] [place] [address] [facility] [address] [address] Referral ID Status Reason Start Date Expiration Date Visits Requested Visits Authorized [id number] Pending Review Auto-Generat ed Referral 3 10/07/2024 1 1 * Outpatient Procedure (Routine) - Pending Review Specialty Diagnoses / Procedures Referred By Contac t Referred To Contact [facility] Diagnoses Coronary artery disease of [place] artery of [place] heart with stable angina pectoris (HCC) Pre-operative cardiovascular examination 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) Procedures ECG COMPLETE ECG ROUTINE ECG W/LEAST 12 LDS W/I&R Coco Batista MD [address] [place] [address] [place] [address] Referral ID Status Reason Start Date Expiration Date Visits Requested Visits Authorized [id number] Pending Review Auto-Generat ed Referral 3 10/07/2024 1 1 * Consult, Test, Treat (Routine) - Authorized Specialty Diagnoses / Procedures [facility]erred To Contact Cardiac Surg Diagnoses Coronary artery disease of [place] artery of [place] heart with stable angina pectoris (HCC) Pre-operative cardiovascular examination 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) Procedures CARDIOTHORACIC PREOP EVALUATION OFFICE/OUTPATIENT [facility] 60-74 MINUTES Coco Batista MD [address] [place] [address] Referral ID Status Reason Start Date Expiration Date Visits Requested Visits Authorized [id number] Authorized PCP Requested Referral 3 10/07/2024 1 1 * Consult, Test, Treat (Routine) - Authorized Specialty Diagnoses / Procedures [facility] Referred To Contact Cardiology Diagnoses Coronary artery disease of [place] artery of [place] heart with stable angina pectoris (HCC) Pre-operative cardiovascular examination 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) Procedures CONSULT TO CARDIOLOGY OFFICE/OUTPATIENT [facility] 60-74 MINUTES Coco Batista MD [address] [place] [address] Referral ID Status Reason Start Date Expiration Date Visits Requested Visits Authorized [id number] Authorized PCP Requested Referral 3 10/07/2024 1 1 [facility] ([facility]ative)* Outpatient Procedure (Routine) - Pending Review Specialty Diagnoses / Procedures Referred By Contac t Referred To Contact [facility] Diagnoses S/P CABG x 3 Controlled type 2 diabetes mellitus without complication, without long-term current use of insulin (HCC) Primary hypertension Procedures ECG COMPLETE ECG ROUTINE ECG W/LEAST 12 LDS W/I&R Rosalia Trinidad MD [address] [place] [address] [facility] [place] [address] Referral ID Status Reason Start Date Expiration Date Visits Requested Visits Authorized [id number] Pending Review Auto-Generat ed Referral 05/12/2024 05/12/2025 1 1 [facility] Summary Purpose Family History No Family History Records FoundNo Family History Records FoundNo Family History Records FoundNo Family History Records FoundNo Family History Records Found Advance Directives Documents on File Type Date Recorded Patient 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 Expl anation Advance Directive(s) 10/30/2023 8:03 AM Advance Directive(s) 10/27/2023 4:44 PM Documents on File Type Date Recorded Patient 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 Expl anation Advance Directive(s) 10/30/2023 8:03 AM Advance Directive(s) 10/27/2023 4:44 PM Reason for Referral Specialty Diagnoses / Procedures Referred By Carl t Referred To Contact Procedures CARDIOVASCULAR MEDICINE OP FOLLOW UP APPT ORDER Rosalia Trinidad MD [address] [place] [address] Referral ID Status Reason Start Date Expiration Date Visits Requested Visits Authorized [id number] Ref Not Required PCP Requested Referral 10/27/2023 10/26/2024 1 1 Specialty Diagnoses / Procedures Referred By Contcam t Referred To Contact [facility] [place] Procedures CARDIOVASCULAR MEDICINE OP FOLLOW UP APPT ORDER Rosalia Trinidad MD [address] [place] [address] [facility] [place] [address] [place] [address] Referral ID Status Reason Start Date Expiration Date Visits Requested Visits Authorized [id number] Ref Not Required PCP Requested Referral 06/15/2024 06/15/2025 1 1 Additional Source Comments (unrecognized sect ion and content) No Status Records FoundNo Status Records FoundNo Status Records FoundNo Status Records FoundNo Status Records Found INFORMATION SOURCE (unrecogn ized section and content) DATE CREATED AUTHOR 01/21/2022 [facility] DATE CREATED AUTHOR AUTHOR'S ORGANIZ ATION 10/04/2023 [facility] DATE CREATED AUTHOR AUTHOR'S ORGANIZ ATION 08/19/2024 [facility] DATE CREATED AUTHOR AUTHOR'S ORGANIZ ATION 08/25/2024 [facility] DATE CREATED AUTHOR AUTHOR'S ORGANIZ ATION 09/08/2024 [facility] Source Comments (unrecognize d section and content) In the event this informatio n is protected by the Federal Confidentiality of Alcohol and Drug Abuse Patient Records regulations: The Federal rules restrict any use of the information to criminally investigate or prosecute any alcohol or drug abuse patient.[facility] CenterIn the event this information is protected by the Federal Confidentiality of Alcohol and Drug Abuse Patient Records regulations: The Federal rules restrict any use of the information to criminally investigate or prosecute any alcohol or drug abuse patient.[facility] CenterIn the event this information is protected by the Federal Confidentiality of Alcohol and Drug Abuse Patient Records regulations: The Federal rules restrict any use of the information to criminally investigate or prosecute any alcohol or drug abuse patient.[facility] CenterIn the event this information is protected by the Federal Confidentiality of Alcohol and Drug Abuse Patient Records regulations: The Federal rules restrict any use of the information to criminally investigate or prosecute any alcohol or drug abuse patient.[facility] CenterIn the event this information is protected by the Federal Confidentiality of Alcohol and Drug Abuse Patient Records regulations: The Federal rules restrict any use of the information to criminally investigate or prosecute any alcohol or drug abuse patient.[facility] CenterIn the event this information is protected by the Federal Confidentiality of Alcohol and Drug Abuse Patient Records regulations: The Federal rules restrict any use of the information to criminally investigate or prosecute any alcohol or drug abuse patient.[facility] CenterIn the event this information is protected by the Federal Confidentiality of Alcohol and Drug Abuse Patient Records regulations: The Federal rules restrict any use of the information to criminally investigate or prosecute any alcohol or drug abuse patient.[facility] CenterIn the event this information is protected by the Federal Confidentiality of Alcohol and Drug Abuse Patient Records regulations: The Federal rules restrict any use of the information to criminally investigate or prosecute any alcohol or drug abuse patient.[facility] CenterIn the event this information is protected by the Federal Confidentiality of Alcohol and Drug Abuse Patient Records regulations: The Federal rules restrict any use of the information to criminally investigate or prosecute any alcohol or drug abuse patient.[facility] CenterIn the event this information is protected by the Federal Confidentiality of Alcohol and Drug Abuse Patient Records regulations: The Federal rules restrict any use of the information to criminally investigate or prosecute any alcohol or drug abuse patient.[facility] CenterIn the event this information is protected by the Federal Confidentiality of Alcohol and Drug Abuse Patient Records regulations: The Federal rules restrict any use of the information to criminally investigate or prosecute any alcohol or drug abuse patient.[facility] CenterIn the event this information is protected by the Federal Confidentiality of Alcohol and Drug Abuse Patient Records regulations: The Federal rules restrict any use of the information to criminally investigate or prosecute any alcohol or drug abuse patient.[facility] CenterIn the event this information is protected by the Federal Confidentiality of Alcohol and Drug Abuse Patient Records regulations: The Federal rules restrict any use of the information to criminally investigate or prosecute any alcohol or drug abuse patient.[facility] CenterIn the event this information is protected by the Federal Confidentiality of Alcohol and Drug Abuse Patient Records regulations: The Federal rules restrict any use of the information to criminally investigate or prosecute any alcohol or drug abuse patient.[facility] Reason for Visit (unrecogniz ed [...] aspirin before his colonoscopy on Wednesday 08/29? Reason Comments Anemia ANEMIA, LAST COLONOS COPY 02/27/21 AT [facility] DR SIMS, REFERRED BY DR CRANE Care Teams (unrecognized sec tion and content) Senior Statistician Relationship Specialty Start Date End Date Coco Batista MD [address] [place] [id number] Surgeon Cardiac Surg 10/05/23 Senior Statistician Relationship Specialty Start Date End Date Coco Batista MD [address] [place] [phone] Surgeon Cardiac Surg 10/05/23 Senior Statistician Relationship Specialty Start Date End Date Emmanuel Crane MD [address] [place] [address] PCP - General Family Medicine 10/14/23 Coco Batista MD [address] [facility] [place] [id number] Surgeon Cardiac Surg 10/05/23 Rosalia Trinidad MD [address] [place] [id number] Cardiology 10/09/23 Rosalia Trinidad MD [address] [place] [place], [place] [id number] Primary Staff Physician Cardiology 10/27/23 Senior Statistician Relationship Specialty [place] [address] [place] [phone] PCP - General Family Medicine 10/14/23 Coco Batista MD [address] [place] [place], [place] [id number] Surgeon Cardiac Surg 10/05/23 Rosalia Trinidad MD [address] [place] [address] Cardiology 10/09/23 Rosalia Trinidad MD [address] [place] [place], [place] [id number] Primary Staff Physician Cardiology 10/27/23 Senior Statistician Relationship Specialty [place] [address] [place] [phone] PCP - General Family Medicine 10/14/23 Coco Batista MD [address] [place], [place] [id number] Surgeon Cardiac Surg 10/05/23 Rosalia Trinidad MD [address] [place], [place] [id number] Cardiology 10/09/23 Rosalia Trinidad MD [address] [place], [place] [phone] Primary Staff Physician Cardiology 10/27/23 Senior Statistician Relationship Specialty Start Date End Date Emmanuel Crane MD [address] [place] [address] PCP - General Family Medicine 10/14/23 Coco Batista MD [address] [place], [place] [id number] Surgeon Cardiac Surg 10/05/23 Rosalia Trinidad MD [address] [place], [place] [id number] Cardiology 10/09/23 Rosalia Trinidad MD [address] [place], [place] [phone] Primary Staff Physician Cardiology 10/27/23 Senior Statistician Relationship Specialty Start Date End Date Emmanuel Crane MD [address] [place] [address] PCP - General Family Medicine 10/14/23 Coco Batista MD [address] [place], [place] [phone] Surgeon Cardiac Surg 10/05/23 Rosalia Trinidad MD [address] [place], [place] [id number] Cardiology 10/09/23 Rosalia Trinidad MD [address] [place] [address] Primary Staff Physician Cardiology 10/27/23 Senior Statistician Relationship Specialty Start Date End Date Emmanuel Crane MD [address] [place] [address] PCP - General Family Medicine 10/14/23 Coco Batista MD [address] [place], [place] [phone] Surgeon Cardiac Surg 10/05/23 Rosalia Trinidad MD [address] [place], [place] [phone] Cardiology 10/09/23 Rosalia Trinidad MD [address] [place] [address] Primary Staff Physician Cardiology 10/27/23 Senior Statistician Relationship Specialty Start Date End Date Emmanuel Crane MD [address] [place] [phone] PCP - General Family Medicine 10/14/23 Coco Batista MD [address] [place] [address] Surgeon Cardiac Surg 10/05/23 Rosalia Trinidad MD [address] [place] [address] Cardiology 10/09/23 Rosalia Trinidad MD [address] [place] [address] Primary Staff Physician Cardiology 10/27/23 Senior Statistician Relationship Specialty Start Date End Date Emmanuel Crane MD [address] [place] [address] [phone] PCP - General Family Medicine 10/14/23 Coco Batista MD [address] [place] [address] Surgeon Cardiac Surg 10/05/23 Rosalia Trinidad MD [address] [place] [address] Cardiology 10/09/23 Rosalia Trinidad MD [address] [place] [address] Primary Staff Physician Cardiology 10/27/23 Senior Statistician Relationship Specialty Start Date End Date Emmanuel Crane MD [address] [place] [address] PCP - General Family Medicine 10/14/23 Coco Batista MD [address] [place] [address] Surgeon Cardiac Surg 10/05/23 Rosalia Trinidad MD [address] [place] [address] Cardiology 10/09/23 Rosalia Trinidad MD [address] [place] [phone] Primary Staff Physician Cardiology 10/27/23 Senior Statistician Relationship Specialty Start Date End Date Emmanuel Crane MD [address] [place] [phone] PCP - General Family Medicine 10/14/23 Coco Batista MD [address] [place] [phone] Surgeon Cardiac Surg 10/05/23 Rosalia Trinidad MD [address] [place] [phone] Cardiology 10/09/23 Rosalia Trinidad MD [address] [facility] [place] [phone] Primary Staff Physician Cardiology 10/27/23 Senior Statistician Relationship Specialty Start Date End Date Emmanuel Crane MD [address] [place], [place] [phone] PCP - General Family Medicine 10/14/23 Coco Batista MD [address] [facility] [place] [phone] Surgeon Cardiac Surg 10/05/23 Rosalia Trinidad MD [address] [place] [address] Cardiology 10/09/23 Rosalia Trinidad MD [address] [place] [address] Primary Staff Physician Cardiology 10/27/23 Senior Statistician Relationship Specialty Start Date End Date Emmanuel Crane MD [address] [place] [address] PCP - General Family Medicine 10/14/23 Coco Batista MD [address] [place], [place] [phone] Surgeon Cardiac Surg 10/05/23 Rosalia Trinidad MD [address] [place], [place] [phone] Cardiology 10/09/23 Rosalia Trinidad MD [address] [place], [place] [phone] Primary Staff Physician Cardiology 10/27/23 Senior Statistician Relationship Specialty Start Date End Date Emmanuel Crane MD [address] [place] [phone] PCP - General 03/29/16 Senior Statistician Relationship Specialty Start Date End Date Emmanuel Crane MD [address] [place] [phone] PCP - General 03/29/16 Senior Statistician Relationship Specialty Start Date End Date Emmanuel Crane MD [address] [place] [address] PCP - General 03/29/16 Senior Statistician Relationship Specialty Start Date End Date Emmanuel Crane MD [address] [place] [address] PCP - General 03/29/16 Senior Statistician Relationship Specialty Start Date End Date Emmanuel Crane MD [address] [place] [address] PCP - General 03/29/16 Senior Statistician Relationship Specialty Start Date End Date Emmanuel Crane MD [address] [place] [address] PCP - General 03/29/16 Senior Statistician Relationship Specialty Start Date End Date Emmanuel Crane MD [address] [place] [address] PCP - General 03/29/16 Senior Statistician Relationship Specialty Start Date End Date Emmanuel Crane MD [address] [place] [address] PCP - General 03/29/16 Senior Statistician Relationship Specialty Start Date End Date Emmanuel Crane MD [address] [place] [address] PCP - General 03/29/16 Senior Statistician Relationship Specialty Start Date End Date Emmanuel Crane MD [address] [place] [address] PCP - General 03/29/16 Senior Statistician Relationship Specialty Start Date End Date Emmanuel Crane MD [address] [place] [address] PCP - General 03/29/16 Senior Statistician Relationship Specialty Start Date End Date Emmanuel Crane MD [address] [facility] [place] [address] PCP - General 03/29/16 Senior Statistician Relationship Specialty Start Date End Date Emmanuel Crane MD [address] [place] [address] PCP - General 03/29/16 Senior Statistician Relationship Specialty Start Date End Date Emmanuel Crane MD [address] [place] [address] PCP - General 03/29/16 Senior Statistician Relationship Specialty Start Date End Date Emmanuel Crane MD [address] [place] [address] PCP - General 03/29/16 Senior Statistician Relationship Specialty Start Date End Date Emmanuel Crane MD [address] [place] [phone] PCP - General 03/29/16 Senior Statistician Relationship Specialty Start Date End Date Emmanuel Crane MD [address] [place] [phone] PCP - General 03/29/16 Senior Statistician Relationship Specialty Start Date End Date Emmanuel rCane MD [address] [place] [address] PCP - General 03/29/16 Senior Statistician Relationship Specialty Start Date End Date Emmanuel Crane MD [address] [place] [address] PCP - General 03/29/16 Senior Statistician Relationship Specialty Start Date End Date Emmanuel Crane MD [address] [place] [address] PCP - General 03/29/16 Senior Statistician Relationship Specialty Start Date End Date Emmanuel Crane MD [address] [place] [address] PCP - General 03/29/16 Senior Statistician Relationship Specialty Start Date End Date Emmanuel Crane MD [address] [place] [address] PCP - General 03/29/16 Senior Statistician Relationship Specialty Start Date End Date Emmanuel Crane MD [address] [place] [address] PCP - General 03/29/16 Senior Statistician Relationship Specialty Start Date End Date Emmanuel Crane MD [address] [place] [address] PCP - General 03/29/16 Senior Statistician Relationship Specialty Start Date End Date Emmanuel Crane MD PCP - General 03/29/16 Senior Statistician Relationship Specialty Start Date End Date Emmanuel Crane MD [address] [place] [address] PCP - General Family Medicine 08/29/24 Senior Statistician Relationship Specialty Start Date End Date Emmanuel Crane MD PCP - General 03/29/16 FOR RECORDS PERTAINING TO PATIENTS WHO ARE [...] BE BASED ON THE PRIMARY CLINICAL RECORDS. [facility] [employer] [facility]. provides no warranty or guarantee of the accuracy or completeness of information in this document.
[2025-02-01 10:14] LABS: Basophils Absolute Auto 0.1 10^3/uL (0.0-0.1); Basophils Percent Auto 0.9 % (0.2-2.0); Eosinophils Absolute Auto 0.3 10^3/uL (0.0-0.7); Eosinophils Percent Auto 4.6 % (0.9-7.0); Hemoglobin 13.1 g/dL (14.0-18.0); Immature Granulocytes Abs Auto 0.07 10^3/uL (0.00-0.03); Lymphocytes Absolute Auto 1.1 10^3/uL (1.2-3.8); Lymphocytes Percent Auto 15.5 % (20.5-60.0); Mean Corpuscular HGB Conc 31.2 g/dL (29.9-35.2); Mean Corpuscular Hemoglobin 28.1 pg (25.9-34.0); Mean Corpuscular Volume 90.1 fL (80.0-94.0); Mean Platelet Volume 11.2 fL (9.5-13.5); Monocytes Absolute Auto 0.7 10^3/uL (0.3-0.8); Monocytes Percent Auto 9.4 % (1.7-12.0); Neutrophils Absolute Auto 4.8 10^3/uL (1.4-6.5); Neutrophils Percent Auto 68.6 % (43.0-75.0); Platelet Count 154 10^3/uL (150-450); Red Blood Count 4.66 10^6/uL (4.70-6.10); Red Cell Distribution Width 15.4 % (11.0-15.0)
[2025-02-01 10:31] LABS: Estimated Average Glucose 128 mg/dL; Glycohemoglobin A1C 6.1 % (4.5-6.2)
[2025-02-01 10:38] LABS: Alanine Aminotransferase 43 U/L (16-63); Albumin Globulin Ratio 1.5; Alkaline Phosphatase 94 U/L (46-116); Anion Gap 13.8; Aspartate Amino Transferase 24 U/L (15-37); BUN Creatinine Ratio 21.1; Bilirubin Total 0.5 mg/dL (0.2-1.0); Calcium 9.4 mg/dL (8.5-10.1); Carbon Dioxide 26.4 mmol/L (21.0-32.0); Chloride 103 mmol/L (98-107); Chol HDL Ratio 3.9; Cholesterol 158 mg/dL (<=200); Estimated GFR (African America >60 (>=60 mL/min/1.73m^2); Estimated GFR (Non-African Ame 50 (>=60 mL/min/1.73m^2); Free T3 2.77 pg/mL (2.18-3.98); Globulin 2.7 g/dL; Glucose 112 mg/dL (74-106); HDL Cholesterol 41 mg/dL (40-60); Potassium 4.2 mmol/L (3.5-5.1); Sodium 139 mmol/L (136-145); Thyroid Stimulating Hormone 1.404 uIU/mL (0.358-3.740); Total Protein 6.7 g/dL (6.4-8.2); Triglycerides 270 mg/dL (<=150)
[2025-02-01 10:39] LABS: Bilirubin Urine NEGATIVE (NEGATIVE); Blood Urine NEGATIVE (NEGATIVE); Clarity Urine CLEAR (CLEAR); Color Urine LT. YELLOW (YELLOW); Glucose Urine UA >=1000 mg/dL (NEGATIVE); Ketones Urine NEGATIVE (NEGATIVE); Leukocyte Esterase Urine TRACE (NEGATIVE); Nitrite Urine NEGATIVE (NEGATIVE); Protein Urine NEGATIVE (NEG/TRACE); Urobilinogen Urine 0.2 EU/dL (0.2-1.0); pH Urine 5.5 (5.0-9.0)
[2025-02-01 10:55] LABS: RBC Urine 0-2 #/HPF (0-2); WBC Urine 0-2 #/HPF (NONE SEEN)
[2025-02-01 10:56] LABS: Bacteria Urine NONE SEEN #/HPF (NONE SEEN); Cast Seen? NONE SEEN #/LPF (NONE SEEN); Crystals Seen? None Seen #/HPF (None Seen); Mucus Urine NONE SEEN (NONE SEEN); Squamous Epithelial Cell Urine RARE #/LPF (NONE/RARE); Urine Culture Indicated ALREADY ORDERED
[2025-02-01 11:05] LABS: Prostate Specific Antigen Scrn 1.93 ng/mL (<=4.00)
== END 2025-02-01 09:44 | disposition home or self-care (01) ==
LOC: LAB 09:47
PROVIDERS: PCP Family Medicine; Visit Provider Family Medicine
DX: R30.0 Dysuria (principal); E11.35 Type 2 diabetes mellitus with proliferative diabetic retinopathy; I10 Essential (primary) hypertension; E78.00 Pure hypercholesterolemia, unspecified; I25.10 Atherosclerotic heart disease of native coronary artery without angina pectoris; D50.9 Iron deficiency anemia, unspecified; E03.9 Hypothyroidism, unspecified; Z12.5 Encounter for screening for malignant neoplasm of prostate; R53.83 Other fatigue
CPT/HCPCS: 36415; 80053; 80061; 81001; 83036; 83880; 84436; 84443; 84481; 85025; 87086; 87150; G0103

== ENCOUNTER 2025-03-27 09:19 | Outpatient (OUT) | payer MEDICARE, OTHER, SELFPAY ==
[2025-03-27 10:29] LABS: Alanine Aminotransferase 30 U/L (16-63); Albumin Globulin Ratio 1.2; Albumin Level 3.4 g/dL (3.4-5.0); Alkaline Phosphatase 86 U/L (46-116); Anion Gap 10.3; Aspartate Amino Transferase 16 U/L (15-37); BUN Creatinine Ratio 21.3; Bilirubin Total 0.4 mg/dL (0.2-1.0); Calcium 9.2 mg/dL (8.5-10.1); Carbon Dioxide 31.7 mmol/L (21.0-32.0); Chloride 103 mmol/L (98-107); Estimated GFR (African America >60 (>=60 mL/min/1.73m^2); Estimated GFR (Non-African Ame 57 (>=60 mL/min/1.73m^2); Globulin 2.8 g/dL; Glucose 109 mg/dL (74-106); Sodium 141 mmol/L (136-145); Total Protein 6.2 g/dL (6.4-8.2)
[2025-03-27 10:33] LABS: Basophils Percent Auto 0.7 % (0.2-2.0); Eosinophils Absolute Auto 0.3 10^3/uL (0.0-0.7); Eosinophils Percent Auto 5.1 % (0.9-7.0); Hematocrit 39.3 % (42.0-54.0); Hemoglobin 12.6 g/dL (14.0-18.0); Immature Granulocytes Abs Auto 0.11 10^3/uL (0.00-0.03); Immature Granulocytes Pct Auto 1.8 % (0.0-0.5); Lymphocytes Absolute Auto 0.9 10^3/uL (1.2-3.8); Lymphocytes Percent Auto 15.2 % (20.5-60.0); Mean Corpuscular HGB Conc 32.1 g/dL (29.9-35.2); Mean Corpuscular Hemoglobin 28.1 pg (25.9-34.0); Mean Corpuscular Volume 87.7 fL (80.0-94.0); Mean Platelet Volume 11.8 fL (9.5-13.5); Monocytes Absolute Auto 0.6 10^3/uL (0.3-0.8); Neutrophils Absolute Auto 4.2 10^3/uL (1.4-6.5); Neutrophils Percent Auto 68.2 % (43.0-75.0); Platelet Count 134 10^3/uL (150-450); Red Blood Count 4.48 10^6/uL (4.70-6.10); Red Cell Distribution Width 15.2 % (11.0-15.0); White Blood Count 6.1 10^3/uL (4.0-11.0)
[2025-03-27 10:50] LABS: Percent Iron Saturation 27.7 %
[2025-03-28 06:12] LABS: Vitamin B12 >2000 pg/mL (232-1245)
== END 2025-03-27 09:20 | disposition home or self-care (01) ==
LOC: LAB 09:21
PROVIDERS: PCP Family Medicine; Visit Provider Internal Medicine Hematology & Oncology
DX: D64.9 Anemia, unspecified (principal); D50.9 Iron deficiency anemia, unspecified; K90.9 Intestinal malabsorption, unspecified
CPT/HCPCS: 36415; 80053; 82306; 82607; 82728; 83540; 83550; 85025

== ENCOUNTER 2025-04-04 07:40 | Outpatient (RCR) | payer MEDICARE, OTHER, SELFPAY ==
--- OUTSIDE RECORDS SUMMARY | 2025-04-04 07:44 | XMS_ITS | CCD ---
Author Organization [facility] Team Providers Care Adjuster Arbitrator Name Role Phone DON, DR CONCEPCION Primary [...] Referring Unavailable Kingsley NOLASCO, Coco Quiroga Unavailable [phone] Rosalia Trinidad MD Unavailable [phone] Emmanuel Crane MD Primary Care Provider [phone] Rosalia Trinidad MD Unavailable [phone] Emmanuel Crane MD Primary Care Provider CONSTANZA [...] HOY, EMMANUEL M Primary Care Unavailable COCO BATSITA Referring Unavailable COCO BATISTA Attending Unavailable COCO [...] HOY, EMMANUEL M Primary Care Unavailable HOY, EMAMNUEL M Referring Unavailable HOY, EMMANUEL M Primary [...] on above: Take 2 tablets by mo [facility] every 6 hours as needed for pain. [...] mouth nightly 4 tabs hs peg 3350-sod sulf,ioil-aix-zpa 178.7-7.3-0.5 gram recon soln (1 source) Start: [...] on above: Take 1 capsule by mo [facility] once daily. vitamin b12 1 mg/ml oral [...] Comment on above: Take 2 tablets by [facility]. docusate sodium 100 mg oral capsule (20 [...] Comment on above: Take 1 capsule by [facility] two times a day. febuxostat 80 mg [...] Comment on above: Take 1 tablet by [facility] every 12 hours as needed [...] morning of surgery. omega-3 acid ethyl esters (prison) 1000 mg oral capsule (20 sources) End: [...] am for 7 days. 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 ([id number]) [address] [place] [address] [address] [place] [address] Surgical Pathologyon 024 Surgical Pathology Normal [facility] Comment on above: Result Comment: [facility] [address] [place] [address] Surgical Pathology Consultation ADDENDUM MA Patient Name:ROLAND HONG:1955 (Age: 69)Gender:MTaken:08/29/2024eported:09/01/2024hysician(s):Primo Sims D.O. ([phone])Copy To: Rec. #:[id number]: #[id number] Final Pathologic Diagnosis 1. Antrum biopsy: Mild [...] Out Jalen Jones MD Interpretation performed at [facility], [address] [place] [address], License number: [id number]. Clinical History Anemia. Gross Description 1. Received in formalin labeled RUFTY, antrum are two light hannah soft tissue bits, 0.2 and 0.3 cm. The specimen is filtered and entirely submitted in a single cassette. (1, ns, [id number],m8) DM. 2. Received in formalin labeled RUFTY, rectum is a hannah possible soft tissue bit admixed with friable vegetative material, less than 0.1 cm. The specimen is filtered and entirely submitted in a single cassette. (1, ns, [id number],m8) DM. dm/08/30/2024NSK Specimen(s) Received 1: Antrum biopsy 2: Rectal polyp Fee Codes(s): 1; 57123, 27828 2; 91378 CNPNon 08-23-2024 CNPN Normal [facility] CNOVon 06-14-2024 CNOV Normal [facility] Comprehensive metabolic 2000 panelon 06-14-2024 Albumin [Mass/Vol] 4.7 g/dL Normal 3.9-4.9 [facility] Comment on above: Order Comment: Speci men Type: BLOOD SPECIMENOrdering Facility: [facility] Address: [address] [place] [address] Performed By: #### 2 4323-8, 38870-3 ####[facility] LABCLIA [id number] [place] [address], [place] [address] [place] ALP [Catalytic activity/Vol] 87 U/L Normal 38-113 [facility] Comment on above: Order Comment: Speci men Type: BLOOD SPECIMENOrdering Facility: [facility] Address: [address] [place] [address] Performed By: #### 2 4323-8, 86037-5 ####[facility] LABCLIA [id number] [place] [address] [place] ALT [Catalytic activity/Vol] 16 U/L Normal 10-54 [facility] Comment on above: Order Comment: Speci men Type: BLOOD SPECIMENOrdering Facility: [facility] Address: [address] [place] [address] Performed By: #### 2 4323-8, 41570-2 ####[facility] LABCLIA [id number] [place] [address] [place] Anion gap [Moles/Vol] 12 mmol/L Normal 8-15 [facility] Comment on above: Order Comment: Speci men Type: BLOOD SPECIMENOrdering Facility: [facility] Address: [address] [place] [address] Performed By: #### 2 4323-8, 58862-9 ####[facility] LABCLIA [id number] [place] [address] [place] AST [Catalytic activity/Vol] 18 U/L Normal 14-40 [facility] Comment on above: Order Comment: Speci men Type: BLOOD SPECIMENOrdering Facility: [facility] Address: [address] [place] [address] Performed By: #### 2 4323-8, 85710-8 ####[facility] LABCLIA [id number] [place] [address] [place] Bilirubin [Mass/Vol] 0.3 mg/dL Normal 0.2-1.3 [facility] Comment on above: Order Comment: Speci men Type: BLOOD SPECIMENOrdering Facility: [facility] Address: [address] [place] [address] Performed By: #### 2 4323-8, 98883-0 ####[facility] LABCLIA [id number] [place] [address] [place] Calcium [Mass/Vol] 9.9 mg/dL Normal 8.5-10.2 [facility] Comment on above: Order Comment: Speci men Type: BLOOD SPECIMENOrdering Facility: [facility] Address: [address] [id number] Performed By: #### 2 4323-8, 58784-1 ####[facility] LABCLIA [id number] [place] [address] [place] Chloride [Moles/Vol] 102 mmol/L Normal 98-107 [facility] Comment on above: Order Comment: Speci men Type: BLOOD SPECIMENOrdering Facility: [facility] Address: [address] [place] [address] Performed By: #### 2 4323-8, 03467-5 ####[facility] LABCLIA [id number] [place] [address] [place] CO2 [Moles/Vol] 25 mmol/L Normal 22-30 [facility] Comment on above: Order Comment: Speci men Type: BLOOD SPECIMENOrdering Facility: [facility] Address: [address] [place] [address] Performed By: #### 2 4323-8, 10542-5 ####[facility] LABCLIA [id number] [place] [address] [place] Creatinine [Mass/Vol] 1.27 mg/dL High 0.73-1.22 [facility] Comment on above: Order Comment: Speci men Type: BLOOD SPECIMENOrdering Facility: [facility] Address: [address] [place] [address] Performed By: #### 2 4323-8, 22654-6 ####[facility] LABCLIA [id number] [place] [address] [place] Creatinine and Glomerular filtration rate.predicted panel (S/P/Bld) 62 mL/min/1.73m??? Normal >=60 [facility] Comment on above: Order Comment: Speci men Type: BLOOD SPECIMENOrdering Facility: [facility] Address: [address] [place] [address] Result Comment: Gisselle mated Glomerular Filtration Rate [...] actual GFR. Performed By: #### 2 4323-8, 61460-9 ####[facility] LABIA [id number] [place] [address] [place] Glucose [Mass/Vol] 78 mg/dL Normal 74-99 [facility] Comment on above: Order Comment: Enma perry Type: BLOOD SPECIMENOrdering Facility: [facility] Address: [address] [place] [address] Result Comment: The [place] Diabetes Association (ADA) provides guidance for cutoff [...] Standards of Medical Care in Diabetes 2016, [place] Diabetes Association. Diabetes Care. 2016.39(Suppl 1). Performed By: #### 2 4323-8, 19647-3 ####[facility] LABIA [id number] [place] [id number] [place] Potassium [Moles/Vol] 4.4 mmol/L Normal 3.7-5.1 [facility] Comment on above: Order Comment: Enma perry Type: BLOOD SPECIMENOrdering Facility: [facility] Address: [address] [place] [address] Performed By: #### 2 4323-8, 96957-4 ####[facility] LABCLIA [id number] [place] [id number] [place] Protein [Mass/Vol] 6.8 g/dL Normal 6.3-8.0 [facility] Comment on above: Order Comment: Speci men Type: BLOOD SPECIMENOrdering Facility: [facility] Address: [address] [place] [address] Performed By: #### 2 4323-8, 52678-0 ####[facility] LABCLIA [id number] [place] [address] [place] Sodium [Moles/Vol] 139 mmol/L Normal 136-144 [facility] Comment on above: Order Comment: Speci men Type: BLOOD SPECIMENOrdering Facility: [facility] Address: [address] [place] [address] Performed By: #### 2 4323-8, 92183-7 ####[facility] LABIA [id number] [place] [address] [place] Urea nitrogen [Mass/Vol] 32 mg/dL High 9-24 [facility] Comment on above: Order Comment: Speci men Type: BLOOD SPECIMENOrdering Facility: [facility] Address: [address] [place] [address] Performed By: #### 2 4323-8, 78686-4 ####[facility] LABIA [id number] [place] [id number] [place] ECG COMPLETEon 06-14-2024 ECG COMPLETE Normal [facility] HbA1c (Bld)on 06-14-2024 Average glucose Estimated from glycated hemoglobin (Bld) [Mass/Vol] 134 mg/dL Normal [facility] Comment on above: Order Comment: Speci men Type: BLOOD SPECIMENOrdering Facility: [facility] Address: [address] [place] [address] Result Comment: eAG: (Estimated average glucose) is a calculated value from HgbA1c and is retention representative of the average blood glucose level in the last 2-3 month period. Performed By: #### 5 5454-3 ####[facility] LABCLIA [id number] [place] [address] [place] HbA1c (Bld) [Mass fraction] 6.3 % High 4.3-5.6 [facility] Comment on above: Order Comment: Enma perry Type: BLOOD SPECIMENOrdering Facility: [facility] Address: [address] [place] [address] Result Comment: Amer [place] Diabetes Association guidelines indicate that patients with HgbA1c in the range 5.7-6.4% are at increased risk for development of diabetes, and intervention by lifestyle modification may be beneficial. HgbA1c greater or equal to 6.5% is considered diagnostic of diabetes. Performed By: #### 5 5454-3 ####[facility] LABIA [id number] [place] [address] [place] Lipid 1996 panelon 4 Cholesterol [Mass/Vol] 168 mg/dL Normal <200 [facility] Comment on above: Order Comment: Enma perry Type: BLOOD SPECIMENOrdering Facility: [facility] Address: [address] [place] [address] Result Comment: <200 mg/dL, Desirable 200-239 mg/dL, Borderline high>239 mg/dL, High Performed By: #### 2 4323-8, 61460-1 ####[facility] LABIA [id number] [address] [place] Cholesterol in HDL [Mass/Vol] 38 mg/dL Low >39 [facility] Comment on above: Order Comment: Enma perry Type: BLOOD SPECIMENOrdering Facility: [facility] Address: [address] [place] [address] Result Comment: 40-5 9 mg/dL, Acceptable>59 mg/dL, High: Negative risk factor for coronary heart disease<40 mg/dL, Low: Positive risk factor for coronary heart disease Performed By: #### 2 4323-8, ####[facility] LABCLIA [id number] [place] [address] [place] Cholesterol in LDL [Mass/Vol] 68 mg/dL Normal <100 [facility] Comment on above: Order Comment: Speci men Type: BLOOD SPECIMENOrdering Facility: [facility] Address: [address] [place] [address] Result Comment: <100 mg/dL, Optimal 100-129 mg/dL, Near optimal/above optimal 130-159 mg/dL, Borderline high 160-189 mg/dL, High>189 mg/dL, Very highSecondary prevention optimal LDL Cholesterol levels are recommended to be < 70 mg/dL Performed By: #### 2 4328, ####[facility] LABIA [id number] [place] [address] [place] Cholesterol in LDL/Cholesterol in HDL [Mass ratio] 1.79 {ratio} Normal <2.54 [facility] Comment on above: Order Comment: Speci men Type: BLOOD SPECIMENOrdering Facility: [facility] Address: [address] [place] [address] Result Comment: Alix dow:1. National Cholesterol Education Program ATP III Guideline At-A-Glance Quick Desk Reference: National Heart, Lung, and Blood [place]. National Institutes of Health. 2001: NIH Publication No. 01-3305.2. An International Atherosclerosis Society position paper: global recommendations for the management of dyslipidemia: executive summary, Atherosclerosis. 2014: 232(2):410-413. Performed By: #### 2 43238, ####[facility] LABIA [id number] [place] [address] [place] Cholesterol in VLDL [Mass/Vol] 62 mg/dL High <30 [facility] Comment on above: Order Comment: Speci men Type: BLOOD SPECIMENOrdering Facility: [facility] Address: [address] [place] [address] Performed By: #### 2 4328, ####[facility] LABCLIA [id number] [place] [id number] [place] Cholesterol non HDL [Mass/Vol] 130 mg/dL High <130 [facility] Comment on above: Order Comment: Speci men Type: BLOOD SPECIMENOrdering Facility: [facility] Address: [address] [place] [address] Result Comment: <130 mg/dL, Optimal 130-159 mg/dL, Near optimal/above optimal 160-189 mg/dL, Borderline high 190-219 mg/dL, High>219 mg/dL, Very highSecondary prevention optimal non HDL Cholesterol levels are recommended to be <100 mg/dL Performed By: #### 2 4323-8, ####[facility] LABCLIA [id number] [place] [address] [place] Cholesterol.total/Cho lesterol in HDL [Mass ratio] 4.42 {ratio} Normal <5.10 [facility] Comment on above: Order Comment: Speci men Type: BLOOD SPECIMENOrdering Facility: [facility] Address: [address] [place] [address] Performed By: #### 2 4323-8, 30804-8 ####[facility] LABCLIA [id number] [place] [address] [place] FASTING TIME 5 hrs Normal [facility] Comment on above: Order Comment: Speci men Type: BLOOD SPECIMENOrdering Facility: [facility] Address: [address] [place] [address] Performed By: #### 2 4323-8, 20707-8 ####[facility] LABCLIA [id number] [place] [address] [place] Triglyceride [Mass/Vol] 312 mg/dL High <150 [facility] Comment on above: Order Comment: Speci men Type: BLOOD SPECIMENOrdering Facility: [facility] Address: [address] [place] [address] Result Comment: <150 mg/dL, Normal 150-199 mg/dL, Borderline high 200-499 mg/dL, High>499 mg/dL, Very high Performed By: #### 2 4323-8, 22230-0 ####[facility] LABCLIA [id number] [place] [address] [place] CNPNon 05-27-2024 CNPN Normal [facility] Glucose Glucometer (BldC) [M ass/Vol]on 12-31-2023 Glucose [Mass/Vol] 123 mg/dL High 65 - 99 mg/dL [facility] Interpretation and review of laboratory results Abnormal [facility] Glucose [Mass/Vol] 123 mg/dL High 65-99 [facility] CNPNon 12-30-2023 CNPN Normal [facility] Glucose Glucometer (BldC) [M ass/Vol]on 12-30-2023 Glucose [Mass/Vol] 135 mg/dL High 65 - 99 mg/dL [facility] [place] [facility] Interpretation and review of laboratory results Abnormal [facility] Glucose [Mass/Vol] 135 mg/dL High 65-99 [facility] Glucose Glucometer (BldC) [M ass/Vol]on 12-28-2023 Glucose [Mass/Vol] 124 mg/dL High 65 - 99 mg/dL [facility]ation and review of laboratory results Abnormal [facility] Glucose [Mass/Vol] 124 mg/dL High 65-99 [facility] Glucose Glucometer (BldC) [M ass/Vol]on 12-24-2023 Glucose [Mass/Vol] 137 mg/dL High 65 - 99 mg/dL [facility] [place] [facility] Interpretation and review of laboratory results Abnormal [facility] Glucose [Mass/Vol] 137 mg/dL High 65-99 [facility] Glucose Glucometer (BldC) [M ass/Vol]on 12-23-2023 Glucose [Mass/Vol] 115 mg/dL High 65 - 99 mg/dL [facility] Interpretation and review of laboratory results Abnormal [facility] Glucose [Mass/Vol] 115 mg/dL High 65-99 [facility] Glucose Glucometer (BldC) [M ass/Vol]on 12-21-2023 Glucose [Mass/Vol] 107 mg/dL High 65 - 99 mg/dL [facility] Interpretation and review of laboratory results Abnormal [facility] Glucose [Mass/Vol] 107 mg/dL High 65-99 [facility] CNPNon 12-17-2023 CNPN Normal [facility] Glucose Glucometer (BldC) [M ass/Vol]on 12-17-2023 Glucose [Mass/Vol] 135 mg/dL High 65 - 99 mg/dL [facility] Interpretation and review of laboratory results Abnormal [facility] Glucose [Mass/Vol] 135 mg/dL High 65-99 [facility] Glucose Glucometer (BldC) [M ass/Vol]on 12-16-2023 Glucose [Mass/Vol] 123 mg/dL High 65 - 99 mg/dL [facility] Interpretation and review of laboratory results Abnormal [facility] Glucose [Mass/Vol] 123 mg/dL High 65-99 [facility] Glucose Glucometer (BldC) [M ass/Vol]on 12-14-2023 Glucose [Mass/Vol] 129 mg/dL High 65 - 99 mg/dL [facility] Interpretation and review of laboratory results Abnormal [facility] Glucose [Mass/Vol] 129 mg/dL High 65-99 [facility] CNPNon 12-10-2023 CNPN Normal [facility] CNOVon 12-08-2023 CNOV Normal [facility] ECG COMPLETEon 12-08-2023 ECG COMPLETE Normal [facility] CBC panel Auto (Bld)on 12-04 Erythrocyte distribution width (RBC) [Ratio] 16.8 % High 11.5-15.0 [facility] Comment on above: Order Comment: Speci men Type: BLOOD SPECIMENOrdering Facility: [facility] Address: [address] [place] [address] Performed By: #### 5 8410-2 ####[facility] LABCLIA [id number] [place] [address] [place] Hematocrit (Bld) [Volume fraction] 38.5 % Low 39.0-51.0 [facility] Comment on above: Order Comment: Speci men Type: BLOOD SPECIMENOrdering Facility: [facility] Address: [address] [place] [address] Performed By: #### 5 8410-2 ####[facility] LABIA [id number] [place] [address] [place] Hemoglobin (Bld) [Mass/Vol] 11.3 g/dL Low 13.0-17.0 [facility] Comment on above: Order Comment: Speci men Type: BLOOD SPECIMENOrdering Facility: [facility] Address: [address] [place] [address] Performed By: #### 5 8410-2 ####[facility] LABIA [id number] [place] [address] [place] MCH (RBC) [Entitic mass] 24.8 pg Low 26.0-34.0 [facility] Comment on above: Order Comment: Speci men Type: BLOOD SPECIMENOrdering Facility: [facility] Address: [address] [place] [address] Performed By: #### 5 8410-2 ####[facility] LABIA [id number] [place] [address] [place] MCHC (RBC) [Mass/Vol] 29.4 g/dL Low 30.5-36.0 [facility] Comment on above: Order Comment: Speci men Type: BLOOD SPECIMENOrdering Facility: [facility] Address: [address] [place] [address] Performed By: #### 5 8410-2 ####[facility] LABCLIA [id number] [place] [address] [place] MCV (RBC) [Entitic vol] 84.6 fL Normal 80.0-100.0 [facility] Comment on above: Order Comment: Speci men Type: BLOOD SPECIMENOrdering Facility: [facility] Address: [address] [place] [address] Performed By: #### 5 8410-2 ####[facility] LABIA [id number] [place] [address] [place] Nucleated RBC (Bld) [#/Vol] 10*3/uL Normal <0.01 [facility] Comment on above: Order Comment: Speci men Type: BLOOD SPECIMENOrdering Facility: [facility] Address: [address] [place] [address] Performed By: #### 5 8410-2 ####[facility] LABIA [id number] [place] [address] [place] Platelet mean volume (Bld) [Entitic vol] 12.2 fL Normal 9.0-12.7 [facility] Comment on above: Order Comment: Speci men Type: BLOOD SPECIMENOrdering Facility: [facility] Address: [address] [place] [address] Performed By: #### 5 8410-2 ####[facility] LABIA [id number] [place] [address] [place] Platelets (Bld) [#/Vol] 231 10*3/uL Normal 150-400 [facility] Comment on above: Order Comment: Speci men Type: BLOOD SPECIMENOrdering Facility: [facility] Address: [address] [place] [address] Performed By: #### 5 8410-2 ####[facility] LABIA [id number] [place] [address] [place] RBC (Bld) [#/Vol] 4.55 10*6/uL Normal 4.20-6.00 [facility] Comment on above: Order Comment: Speci men Type: BLOOD SPECIMENOrdering Facility: [facility] Address: [address] [place] [address] Performed By: #### 5 8410-2 ####[facility] LABCLIA [id number] [place] [address] [place] WBC (Bld) [#/Vol] 7.58 10*3/uL Normal 3.70-11.00 [facility] Comment on above: Order Comment: Speci men Type: BLOOD SPECIMENOrdering Facility: [facility] Address: [address] [place] [address] Performed By: #### 5 8410-2 ####[facility] LABCLIA [id number] [place] [address] [place] CNOVon 12-04-2023 CNOV Normal [facility] metabolic 2000 panelon 12-04-2023 Albumin [Mass/Vol] 4.5 g/dL Normal 3.9-4.9 [facility] Comment on above: Order Comment: Speci men Type: BLOOD SPECIMENOrdering Facility: [facility] Address: [address] [place] [address] Performed By: #### 2 4323-8 ####[facility] LABCLIA [id number] [place] [address] [place] ALP [Catalytic activity/Vol] 92 U/L Normal 38-113 [facility] Comment on above: Order Comment: Speci men Type: BLOOD SPECIMENOrdering Facility: [facility] Address: [address] [place] [address] Performed By: #### 2 4323-8 ####[facility] LABCLIA [id number] [place] [address] [place] ALT [Catalytic activity/Vol] 11 U/L Normal 10-54 [facility] Comment on above: Order Comment: Speci men Type: BLOOD SPECIMENOrdering Facility: [facility] Address: [address] [place] [address] Performed By: #### 2 4323-8 ####[facility] LABCLIA [id number] [place] [address] [place] Anion gap [Moles/Vol] 15 mmol/L Normal 9-18 [facility] Comment on above: Order Comment: Speci men Type: BLOOD SPECIMENOrdering Facility: [facility] Address: [address] [place] [address] Performed By: #### 2 4323-8 ####[facility] LABCLIA [id number] [place] [address] [place] AST [Catalytic activity/Vol] 15 U/L Normal 14-40 [facility] Comment on above: Order Comment: Speci men Type: BLOOD SPECIMENOrdering Facility: [facility] Address: [address] [place] [address] Performed By: #### 2 4323-8 ####[facility] LABCLIA [id number] [place] [address] [place] Bilirubin [Mass/Vol] 0.3 mg/dL Normal 0.2-1.3 [facility] Comment on above: Order Comment: Speci men Type: BLOOD SPECIMENOrdering Facility: [facility] Address: [address] [place] [address] Performed By: #### 2 4323-8 ####[facility] LABCLIA [id number] [place] [address] [place] Calcium [Mass/Vol] 10.1 mg/dL Normal 8.5-10.2 [facility] Comment on above: Order Comment: Speci men Type: BLOOD SPECIMENOrdering Facility: [facility] Address: [address] [place] [address] Performed By: #### 2 4323-8 ####[facility] LABCLIA [id number] [place] [address] [place] Chloride [Moles/Vol] 100 mmol/L Normal 97-105 [facility] Comment on above: Order Comment: Speci men Type: BLOOD SPECIMENOrdering Facility: [facility] Address: [address] [place] [address] Performed By: #### 2 4323-8 ####[facility] LABCLIA [id number] [place] [address] [place] CO2 [Moles/Vol] 27 mmol/L Normal 22-30 [facility] Comment on above: Order Comment: Speci men Type: BLOOD SPECIMENOrdering Facility: [facility] Address: [address] [place] [address] Performed By: #### 2 4323-8 ####[facility] LABCLIA [id number] [place] [address] [place] Creatinine [Mass/Vol] 1.41 mg/dL High 0.73-1.22 [facility] Comment on above: Order Comment: Speci men Type: BLOOD SPECIMENOrdering Facility: [facility] Address: [address] [place] [address] Performed By: #### 2 4323-8 ####[facility] LABIA [id number] [place] [address] [place] Creatinine and Glomerular filtration rate.predicted panel (S/P/Bld) 55 mL/min/1.73m??? Low >=60 [facility] Comment on above: Order Comment: Speci men Type: BLOOD SPECIMENOrdering Facility: [facility] Address: [address] [place] [address] Result Comment: Gisselle mated Glomerular Filtration Rate [...] actual GFR. Performed By: #### 2 4323-8 ####[facility] LABCLIA [id number] [place] [address] [place] Glucose [Mass/Vol] 105 mg/dL High 74-99 [facility] Comment on above: Order Comment: Speci men Type: BLOOD SPECIMENOrdering Facility: [facility] Address: [address] [place] [address] Result Comment: The [place] [employer] (ADA) provides guidance for cutoff [...] Standards of Medical Care in Diabetes 2016, [employer]. Diabetes Care. 2016.39(Suppl 1). Performed By: #### 2 4323-8 ####[facility] LABCLIA [id number] [place] [address] [place] Potassium [Moles/Vol] 4.2 mmol/L Normal 3.7-5.1 [facility] Comment on above: Order Comment: Speci men Type: BLOOD SPECIMENOrdering Facility: [facility] Address: [address] [place] [address] Performed By: #### 2 4323-8 ####[facility] LABCLIA [id number] [place] [address] [place] Protein [Mass/Vol] 6.6 g/dL Normal 6.3-8.0 [facility] Comment on above: Order Comment: Speci men Type: BLOOD SPECIMENOrdering Facility: [facility] Address: [address] [place] [address] Performed By: #### 2 4323-8 ####[facility] LABCLIA [id number] [place] [address] [place] Sodium [Moles/Vol] 142 mmol/L Normal 136-144 [facility] Comment on above: Order Comment: Speci men Type: BLOOD SPECIMENOrdering Facility: [facility] Address: [address] [place] [address] Performed By: #### 2 4323-8 ####[facility] LABCLIA [id number] [place] [address] [place] Urea nitrogen [Mass/Vol] 32 mg/dL High 9-24 [facility] Comment on above: Order Comment: Speci men Type: BLOOD SPECIMENOrdering Facility: [facility] Address: [address] [place] [address] Performed By: #### 2 4323-8 ####[facility] LABIA [id number] [place] [address] [place] CBC panel Auto (Bld)on 11-10 Erythrocyte distribution width (RBC) [Ratio] 18.6 % High 11.5-15.0 [facility] Comment on above: Order Comment: Speci men Type: BLOOD SPECIMENOrdering Facility: [facility] Address: [address] [place] [address] Performed By: #### 5 8410-2 ####[facility] LABIA [id number] [place] [address] [place] Hematocrit (Bld) [Volume fraction] 32.8 % Low 39.0-51.0 [facility] Comment on above: Order Comment: Speci men Type: BLOOD SPECIMENOrdering Facility: [facility] Address: [address] [place] [address] Performed By: #### 5 8410-2 ####[facility] LABIA [id number] [place] [address] [place] Hemoglobin (Bld) [Mass/Vol] 9.8 g/dL Low 13.0-17.0 [facility] Comment on above: Order Comment: Speci men Type: BLOOD SPECIMENOrdering Facility: [facility] Address: [address] [place] [address] Performed By: #### 5 8410-2 ####[facility] LABIA [id number] [place] [address] [place] MCH (RBC) [Entitic mass] 25.8 pg Low 26.0-34.0 [facility] Comment on above: Order Comment: Speci men Type: BLOOD SPECIMENOrdering Facility: [facility] Address: [address] [place] [address] Performed By: #### 5 8410-2 ####[facility] [id number] [place] [address] [place] MCHC (RBC) [Mass/Vol] 29.9 g/dL Low 30.5-36.0 [facility] Comment on above: Order Comment: Speci men Type: BLOOD SPECIMENOrdering Facility: [facility] Address: [address] [place] [address] Performed By: #### 5 8410-2 ####[facility] [id number] [place] [address] [place] MCV (RBC) [Entitic vol] 86.3 fL Normal 80.0-100.0 [facility] Comment on above: Order Comment: Speci men Type: BLOOD SPECIMENOrdering Facility: [facility] Address: [address] [place] [address] Performed By: #### 5 8410-2 ####[facility] LABROCK[facility] [id number] [place] [address] [place] Nucleated RBC (Bld) [#/Vol] 0.03 10*3/uL High <0.01 [facility] Comment on above: Order Comment: Speci men Type: BLOOD SPECIMENOrdering Facility: [facility] Address: [address] [place] [address] Performed By: #### 5 8410-2 ####[facility] [id number] [id number] [address] [place] Platelet mean volume (Bld) [Entitic vol] 10.2 fL Normal 9.0-12.7 [facility] Comment on above: Order Comment: Speci men Type: BLOOD SPECIMENOrdering Facility: [facility] Address: [address] [place] [address] Performed By: #### 5 8410-2 ####[facility] LABCLIA [id number] [place] [address] [place] Platelets (Bld) [#/Vol] 372 10*3/uL Normal 150-400 [facility] Comment on above: Order Comment: Speci men Type: BLOOD SPECIMENOrdering Facility: [facility] Address: [address] [place] [address] Performed By: #### 5 8410-2 ####[facility] LABCLIA [id number] [place] [address] [place] RBC (Bld) [#/Vol] 3.80 10*6/uL Low 4.20-6.00 [facility] Comment on above: Order Comment: Speci men Type: BLOOD SPECIMENOrdering Facility: [facility] Address: [address] [place] [address] Performed By: #### 5 8410-2 ####[facility] LABIA [id number] [place] [address] [place] WBC (Bld) [#/Vol] 14.84 10*3/uL High 3.70-11.00 [facility] Comment on above: Order Comment: Speci men Type: BLOOD SPECIMENOrdering Facility: [facility] Address: [address] [place] [address] Performed By: #### 5 8410-2 ####[facility] LABCLIA [id number] [place] [id number] [place] CNOVon 11-10-2023 CNOV Normal [facility] Comprehensive metabolic 2000 panelon 11-10-2023 Albumin [Mass/Vol] 4.0 g/dL Normal 3.9-4.9 [facility] Comment on above: Order Comment: Speci men Type: BLOOD SPECIMENOrdering Facility: [facility] Address: [address] [place] [address] Performed By: #### 2 4323-8 ####[facility] LABCLIA [id number] [place] [address] [place] ALP [Catalytic activity/Vol] 115 U/L High 38-113 [facility] Comment on above: Order Comment: Speci men Type: BLOOD SPECIMENOrdering Facility: [facility] Address: [address] [place] [address] Performed By: #### 2 4323-8 ####[facility] LABCLIA [id number] [place] [address] [place] ALT [Catalytic activity/Vol] 16 U/L Normal 10-54 [facility] Comment on above: Order Comment: Speci men Type: BLOOD SPECIMENOrdering Facility: [facility] Address: [address] [place] [address] Performed By: #### 2 4323-8 ####[facility] LABCLIA [id number] [place] [address] [place] Anion gap [Moles/Vol] 16 mmol/L Normal 9-18 [facility] Comment on above: Order Comment: Speci men Type: BLOOD SPECIMENOrdering Facility: [facility] Address: [address] [place] [address] Performed By: #### 2 4323-8 ####[facility] LABCLIA [id number] [place] [address] [place] AST [Catalytic activity/Vol] 17 U/L Normal 14-40 [facility] Comment on above: Order Comment: Speci men Type: BLOOD SPECIMENOrdering Facility: [facility] Address: [address] [place] [address] Performed By: #### 2 4323-8 ####[facility] LABCLIA [id number] [place] [address] [place] Bilirubin [Mass/Vol] 0.4 mg/dL Normal 0.2-1.3 [facility] Comment on above: Order Comment: Speci men Type: BLOOD SPECIMENOrdering Facility: [facility] Address: [address] [place] [address] Performed By: #### 2 4323-8 ####[facility] LABCLIA [id number] [place] [address] [place] Calcium [Mass/Vol] 9.7 mg/dL Normal 8.5-10.2 [facility] Comment on above: Order Comment: Speci men Type: BLOOD SPECIMENOrdering Facility: [facility] Address: [address] [place] [address] Performed By: #### 2 4323-8 ####[facility] LABCLIA [id number] [place] [address] [place] Chloride [Moles/Vol] 98 mmol/L Normal 97-105 [facility] Comment on above: Order Comment: Speci men Type: BLOOD SPECIMENOrdering Facility: [facility] Address: [address] [place] [address] Performed By: #### 2 4323-8 ####[facility] LABCLIA [id number] [place] [address] [place] CO2 [Moles/Vol] 24 mmol/L Normal 22-30 [facility] Comment on above: Order Comment: Speci men Type: BLOOD SPECIMENOrdering Facility: [facility] Address: [address] [place] [address] Performed By: #### 2 4323-8 ####[facility] LABCLIA [id number] [place] [address] [place] Creatinine [Mass/Vol] 1.11 mg/dL Normal 0.73-1.22 [facility] Comment on above: Order Comment: Speci men Type: BLOOD SPECIMENOrdering Facility: [facility] Address: [address] [place] [address] Performed By: #### 2 4323-8 ####[facility] LABIA [id number] [place] [address] [place] Creatinine and Glomerular filtration rate.predicted panel (S/P/Bld) 73 mL/min/1.73m??? Normal >=60 [facility] Comment on above: Order Comment: Enma perry Type: BLOOD SPECIMENOrdering Facility: [facility] Address: [address] [place] [address] Result Comment: Gisselle mated Glomerular Filtration Rate [...] actual GFR. Performed By: #### 2 4323-8 ####[facility] LABIA [id number] [place] [address] [place] Glucose [Mass/Vol] 129 mg/dL High 74-99 [facility] Comment on above: Order Comment: Enma perry Type: BLOOD SPECIMENOrdering Facility: [facility] Address: [address] [place] [address] Result Comment: The [place] [employer] (ADA) provides guidance for cutoff [...] Standards of Medical Care in Diabetes 2016, [place] [employer]. Diabetes Care. 2016.39(Suppl 1). Performed By: #### 2 4323-8 ####[facility] LABCLIA [id number] [place] [address] [place] Potassium [Moles/Vol] 4.1 mmol/L Normal 3.7-5.1 [facility] Comment on above: Order Comment: Speci men Type: BLOOD SPECIMENOrdering Facility: [facility] Address: [address] [place] [address] Performed By: #### 2 4323-8 ####[facility] LABCLIA [id number] [place] [address] [place] Protein [Mass/Vol] 6.6 g/dL Normal 6.3-8.0 [facility] Comment on above: Order Comment: Speci men Type: BLOOD SPECIMENOrdering Facility: [facility] Address: [address] [place] [address] Performed By: #### 2 4323-8 ####[facility] LABIA [id number] [place] [address] [place] Sodium [Moles/Vol] 138 mmol/L Normal 136-144 [facility] Comment on above: Order Comment: Speci men Type: BLOOD SPECIMENOrdering Facility: [facility] Address: [address] [place] [address] Performed By: #### 2 4323-8 ####[facility] LABCLIA [id number] [place] [address] [place] Urea nitrogen [Mass/Vol] 18 mg/dL Normal 9-24 [facility] Comment on above: Order Comment: Speci men Type: BLOOD SPECIMENOrdering Facility: [facility] Address: [address] [place] [address] Performed By: #### 2 4323-8 ####[facility] LABCLIA [id number] [place] [id number] [place] ECG COMPLETEon 11-10-2023 ECG COMPLETE Normal [facility] Urinalysis complete panel (U )on 11-10-2023 Bacteria LM.HPF (Urine sed) [#/Area] Negative Normal Negative [facility] Comment on above: Order Comment: Speci men Type: URINE SPECIMENOrdering Facility: [facility] Address: [address] [place] [address] Performed By: #### 2 4356-8 ####[facility] LABCLIA [id number] [place] [address] [place] Bilirubin Ql (U) Negative Normal Negative [facility] Comment on above: Order Comment: Speci men Type: URINE SPECIMENOrdering Facility: [facility] Address: [address] [place] [address] Performed By: #### 2 4356-8 ####[facility] LABCLIA [id number] [place] [address] [place] Clarity (Unsp spec) Clear Normal Clear [facility] Comment on above: Order Comment: Speci men Type: URINE SPECIMENOrdering Facility: [facility] Address: [address] [place] [address] Performed By: #### 2 4356-8 ####[facility] LABCLIA [id number] [place] [address] [place] Color (U) Yellow Normal Yellow [facility] Comment on above: Order Comment: Speci men Type: URINE SPECIMENOrdering Facility: [facility] Address: [address] [place] [address] Performed By: #### 2 4356-8 ####[facility] LABCLIA [id number] [place] [address] [place] Epithelial cells LM.HPF (Urine sed) [#/Area] None Seen Normal [facility] Comment on above: Order Comment: Speci men Type: URINE SPECIMENOrdering Facility: [facility] Address: [address] [place] [address] Performed By: #### 2 4356-8 ####[facility] LABCLIA [id number] [place] [address] [place] Glucose Test strip (U) [Mass/Vol] Negative Normal Negative [facility] Comment on above: Order Comment: Speci men Type: URINE SPECIMENOrdering Facility: [facility] Address: [address] [place] [address] Performed By: #### 2 4356-8 ####[facility] LABCLIA [id number] [place] [address] [place] Hemoglobin Ql (U) Negative Normal Negative [facility] Comment on above: Order Comment: Speci men Type: URINE SPECIMENOrdering Facility: [facility] Address: [address] [place] [address] Performed By: #### 2 4356-8 ####[facility] LABCLIA [id number] [place] [address] [place] Hyaline casts (Urine sed) [#/Area] 1-3 /LPF Abnormal 0 /LPF [facility] Comment on above: Order Comment: Speci men Type: URINE SPECIMENOrdering Facility: [facility] Address: [address] [place] [address] Performed By: #### 2 4356-8 ####[facility] LABCLIA [id number] [place] [address] [place] Ketones Ql (U) Trace Abnormal Negative [facility] Comment on above: Order Comment: Speci men Type: URINE SPECIMENOrdering Facility: [facility] Address: [address] [place] [address] Performed By: #### 2 4356-8 ####[facility] LABCLIA [id number] [place] [address] [place] Leukocyte esterase Test strip Ql (U) Negative Normal Negative [facility] Comment on above: Order Comment: Speci men Type: URINE SPECIMENOrdering Facility: [facility] Address: [address] [place], [place] [address] Performed By: #### 2 4356-8 ####[facility] LABCLIA [id number] [place] [address] [place] Nitrite Ql (U) Negative Normal Negative [facility] Comment on above: Order Comment: Speci men Type: URINE SPECIMENOrdering Facility: [facility] Address: [address] [place] [address] Performed By: #### 2 4356-8 ####[facility] LABCLIA [id number] [place] [address] [place] pH (U) 5.5 [pH] Normal <8.5 [facility] Comment on above: Order Comment: Speci men Type: URINE SPECIMENOrdering Facility: [facility] Address: [address] [place] [address] Performed By: #### 2 4356-8 ####[facility] LABIA [id number] [place] [address] [place] Protein (U) [Mass/Vol] Trace Abnormal Negative [facility] Comment on above: Order Comment: Speci men Type: URINE SPECIMENOrdering Facility: [facility] Address: [address] [place] [address] Performed By: #### 2 4356-8 ####[facility] LABIA [id number] [place] [address] [place] RBC LM.HPF (Urine sed) [#/Area] 0-2 /HPF Normal 0-2 /HPF [facility] Comment on above: Order Comment: Speci men Type: URINE SPECIMENOrdering Facility: [facility] Address: [address] [place] [address] Performed By: #### 2 4356-8 ####[facility] LABIA [id number] [place] [address] [place] Specific gravity (U) [Rel density] 1.018 Normal 1.005-1.030 [facility] Comment on above: Order Comment: Speci men Type: URINE SPECIMENOrdering Facility: [facility] Address: [address] [place] [address] Performed By: #### 2 4356-8 ####[facility] LABCLIA [id number] [place] [address] [place] Urobilinogen Ql (U) 1.0 EU/dL Normal 0.2-1.0 EU/dL [facility] Comment on above: Order Comment: Speci men Type: URINE SPECIMENOrdering Facility: [facility] Address: [address] [place] [address] Performed By: #### 2 4356-8 ####[facility] LABIA [id number] [place] [address] [place] WBC LM.HPF (Urine sed) [#/Area] 0-5 /HPF Normal 0-5 /HPF [facility] Comment on above: Order Comment: Speci men Type: URINE SPECIMENOrdering Facility: [facility] Address: [address] [place] [address] Performed By: #### 2 4356-8 ####[facility] LABIA [id number] [place] [address] [place] XR CHEST 2V FRONTAL/LATon XR CHEST 2V FRONTAL/LAT Normal [facility] CNPNon 11-03-2023 CNPN Normal [facility] ALLIED HEALTHon 11-02-2023 ALLIED HEALTH Normal [facility] CASE MANAGEMon 11-02-2023 CASE MANAGEM Normal [facility] CBC panel Auto (Bld)on 11-02 Erythrocyte distribution width (RBC) [Ratio] 16.8 % High 11.5-15.0 [facility] Comment on above: Order Comment: Speci men Type: BLOOD SPECIMENOrdering Facility: [facility] Address: [address] [place] [address] Performed By: #### 5 8410-2 ####[facility] LABCLIA [id number] [place] [address] [place] Hematocrit (Bld) [Volume fraction] 28.3 % Low 39.0-51.0 [facility] Comment on above: Order Comment: Speci men Type: BLOOD SPECIMENOrdering Facility: [facility] Address: [address] [place] [address] Performed By: #### 5 8410-2 ####[facility] LABIA [id number] [place] [address] [place] Hemoglobin (Bld) [Mass/Vol] 9.0 g/dL Low 13.0-17.0 [facility] Comment on above: Order Comment: Speci men Type: BLOOD SPECIMENOrdering Facility: [facility] Address: [address] [place] [address] Performed By: #### 5 8410-2 ####[facility] LABIA [id number] [place] [address] [place] MCH (RBC) [Entitic mass] 26.2 pg Normal 26.0-34.0 [facility] Comment on above: Order Comment: Speci men Type: BLOOD SPECIMENOrdering Facility: [facility] Address: [address] [place] [address] Performed By: #### 5 8410-2 ####[facility] LABIA [id number] [place] [address] [place] MCHC (RBC) [Mass/Vol] 31.8 g/dL Normal 30.5-36.0 [facility] Comment on above: Order Comment: Speci men Type: BLOOD SPECIMENOrdering Facility: [facility] Address: [address] [place] [address] Performed By: #### 5 8410-2 ####[facility] LABIA [id number] [place] [address] [place] MCV (RBC) [Entitic vol] 82.5 fL Normal 80.0-100.0 [facility] Comment on above: Order Comment: Speci men Type: BLOOD SPECIMENOrdering Facility: [facility] Address: [address] [place] [address] Performed By: #### 5 8410-2 ####[facility] LABCLIA [id number] [place] [address] [place] Nucleated RBC (Bld) [#/Vol] 0.02 10*3/uL High <0.01 [facility] Comment on above: Order Comment: Speci men Type: BLOOD SPECIMENOrdering Facility: [facility] Address: [address] [place] [address] Performed By: #### 5 8410-2 ####[facility] LABIA [id number] [place] [address] [place] Platelet mean volume (Bld) [Entitic vol] 10.8 fL Normal 9.0-12.7 [facility] Comment on above: Order Comment: Speci men Type: BLOOD SPECIMENOrdering Facility: [facility] Address: [address] [place] [address] Performed By: #### 5 8410-2 ####[facility] LABIA [id number] [place] [address] [place] Platelets (Bld) [#/Vol] 219 10*3/uL Normal 150-400 [facility] Comment on above: Order Comment: Speci men Type: BLOOD SPECIMENOrdering Facility: [facility] Address: [address] [place] [address] Performed By: #### 5 8410-2 ####[facility] LABIA [id number] [place] [address] [place] RBC (Bld) [#/Vol] 3.43 10*6/uL Low 4.20-6.00 [facility] Comment on above: Order Comment: Speci men Type: BLOOD SPECIMENOrdering Facility: [facility] Address: [address] [place] [address] Performed By: #### 5 8410-2 ####[facility] LABCLIA [id number] [place] [address] [place] WBC (Bld) [#/Vol] 8.93 10*3/uL Normal 3.70-11.00 [facility] Comment on above: Order Comment: Speci men Type: BLOOD SPECIMENOrdering Facility: [facility] Address: [address] [place] [address] Performed By: #### 5 8410-2 ####[facility] LABCLIA [id number] [place] [address] [place] CONSULT PROGon 11-02-2023 CONSULT PROG Normal [facility] Comprehensive metabolic 2000 panelon 11-02-2023 Albumin [Mass/Vol] 3.2 g/dL Low 3.9-4.9 [facility] Comment on above: Order Comment: Speci men Type: BLOOD SPECIMENOrdering Facility: [facility] Address: [address] [place] [address] Performed By: #### 2 4323-8 ####[facility] LABCLIA [id number] [place] [address] [place] ALP [Catalytic activity/Vol] 63 U/L Normal 38-113 [facility] Comment on above: Order Comment: Speci men Type: BLOOD SPECIMENOrdering Facility: [facility] Address: [address] [place] [address] Performed By: #### 2 4323-8 ####[facility] LABCLIA [id number] [place] [address] [place] ALT [Catalytic activity/Vol] 7 U/L Low 10-54 [facility] Comment on above: Order Comment: Speci men Type: BLOOD SPECIMENOrdering Facility: [facility] Address: [address] [place] [address] Performed By: #### 2 4323-8 ####[facility] LABCLIA [id number] [place] [address] [place] Anion gap [Moles/Vol] 11 mmol/L Normal 9-18 [facility] Comment on above: Order Comment: Speci men Type: BLOOD SPECIMENOrdering Facility: [facility] Address: [address] [place] [address] Performed By: #### 2 4323-8 ####[facility] LABCLIA [id number] [place] [address] [place] AST [Catalytic activity/Vol] 17 U/L Normal 14-40 [facility] Comment on above: Order Comment: Speci men Type: BLOOD SPECIMENOrdering Facility: [facility] Address: [address] [place] [address] Performed By: #### 2 4323-8 ####[facility] LABCLIA [id number] [place] [address] [place] Bilirubin [Mass/Vol] 0.5 mg/dL Normal 0.2-1.3 [facility] Comment on above: Order Comment: Speci men Type: BLOOD SPECIMENOrdering Facility: [facility] Address: [address] [place] [address] Performed By: #### 2 4323-8 ####[facility] LABCLIA [id number] [place] [address] [place] Calcium [Mass/Vol] 9.4 mg/dL Normal 8.5-10.2 [facility] Comment on above: Order Comment: Speci men Type: BLOOD SPECIMENOrdering Facility: [facility] Address: [address] [place] [address] Performed By: #### 2 4323-8 ####[facility] LABCLIA [id number] [place] [address] [place] Chloride [Moles/Vol] 98 mmol/L Normal 97-105 [facility] Comment on above: Order Comment: Speci men Type: BLOOD SPECIMENOrdering Facility: [facility] Address: [address] [place] [address] Performed By: #### 2 4323-8 ####[facility] LABCLIA [id number] [place] [address] [place] CO2 [Moles/Vol] 25 mmol/L Normal 22-30 [facility] Comment on above: Order Comment: Speci men Type: BLOOD SPECIMENOrdering Facility: [facility] Address: [address] [place] [address] Performed By: #### 2 4323-8 ####[facility] LABCLIA [id number] [place] [address] [place] Creatinine [Mass/Vol] 1.17 mg/dL Normal 0.73-1.22 [facility] Comment on above: Order Comment: Speci men Type: BLOOD SPECIMENOrdering Facility: [facility] Address: [address] [place] [address] Performed By: #### 2 4323-8 ####[facility] LABIA [id number] [place] [address] [place] Creatinine and Glomerular filtration rate.predicted panel (S/P/Bld) 69 mL/min/1.73m??? Normal >=60 [facility] Comment on above: Order Comment: Speci men Type: BLOOD SPECIMENOrdering Facility: [facility] Address: [address] [place] [address] Result Comment: Gisselle mated Glomerular Filtration Rate [...] actual GFR. Performed By: #### 2 4323-8 ####[facility] LABCLIA [id number] [place] [address] [place] Glucose [Mass/Vol] 149 mg/dL High 74-99 [facility] Comment on above: Order Comment: Speci men Type: BLOOD SPECIMENOrdering Facility: [facility] Address: [address] [place] [address] Result Comment: The [place] [employer] (ADA) provides guidance for cutoff [...] Standards of Medical Care in Diabetes 2016, [place] [employer]. Diabetes Care. 2016.39(Suppl 1). Performed By: #### 2 4323-8 ####[facility] LABCLIA [id number] [place] [address] [place] Potassium [Moles/Vol] 4.3 mmol/L Normal 3.7-5.1 [facility] Comment on above: Order Comment: Speci men Type: BLOOD SPECIMENOrdering Facility: [facility] Address: [address] [place] [address] Performed By: #### 2 4323-8 ####[facility] LABCLIA [id number] [place] [address] [place] Protein [Mass/Vol] 5.9 g/dL Low 6.3-8.0 [facility] Comment on above: Order Comment: Speci men Type: BLOOD SPECIMENOrdering Facility: [facility] Address: [address] [place] [address] Performed By: #### 2 4323-8 ####[facility] LABCLIA [id number] [place] [address] [place] Sodium [Moles/Vol] 134 mmol/L Low 136-144 [facility] Comment on above: Order Comment: Speci men Type: BLOOD SPECIMENOrdering Facility: [facility] Address: [address] [place] [address] Performed By: #### 2 4323-8 ####[facility] LABCLIA [id number] [place] [address] [place] Urea nitrogen [Mass/Vol] 47 mg/dL High 9-24 [facility] Comment on above: Order Comment: Speci men Type: BLOOD SPECIMENOrdering Facility: [facility] Address: [address] [place] [address] Performed By: #### 2 4323-8 ####[facility] LABIA [id number] [place] [address] [place] ECG COMPLETEon 11-02-2023 ECG COMPLETE Normal [facility] NURSING PROGon 11-02-2023 NURSING PROG Normal [facility] THERAPY NTon 11-02-2023 THERAPY NT Normal [facility] CBC panel Auto (Bld)on 11-01 Erythrocyte distribution width (RBC) [Ratio] 16.7 % High 11.5-15.0 [facility] Comment on above: Order Comment: Speci men Type: BLOOD SPECIMENOrdering Facility: [facility] Address: [address] [place] [address] Performed By: #### 5 8410-2 ####[facility] LABCLIA [id number] [place] [address] [place] Hematocrit (Bld) [Volume fraction] 26.4 % Low 39.0-51.0 [facility] Comment on above: Order Comment: Speci men Type: BLOOD SPECIMENOrdering Facility: [facility] Address: [address] [place] [address] Performed By: #### 5 8410-2 ####[facility] LABCLIA [id number] [place] [address] [place] Hemoglobin (Bld) [Mass/Vol] 8.4 g/dL Low 13.0-17.0 [facility] Comment on above: Order Comment: Speci men Type: BLOOD SPECIMENOrdering Facility: [facility] Address: [address] [place] [address] Performed By: #### 5 8410-2 ####[facility] LABIA [id number] [place] [address] [place] MCH (RBC) [Entitic mass] 26.3 pg Normal 26.0-34.0 [facility] Comment on above: Order Comment: Speci men Type: BLOOD SPECIMENOrdering Facility: [facility] Address: [address] [place] [address] Performed By: #### 5 8410-2 ####[facility] [id number] [place] [address] [place] MCHC (RBC) [Mass/Vol] 31.8 g/dL Normal 30.5-36.0 [facility] Comment on above: Order Comment: Speci men Type: BLOOD SPECIMENOrdering Facility: [facility] Address: [address] [place] [address] Performed By: #### 5 8410-2 ####[facility] [id number] [place] [address] [place] MCV (RBC) [Entitic vol] 82.8 fL Normal 80.0-100.0 [facility] Comment on above: Order Comment: Speci men Type: BLOOD SPECIMENOrdering Facility: [facility] Address: [address] [place] [address] Performed By: #### 5 8410-2 ####[facility] [id number] [place] [address] [place] Nucleated RBC (Bld) [#/Vol] 10*3/uL Normal <0.01 [facility] Comment on above: Order Comment: Speci men Type: BLOOD SPECIMENOrdering Facility: [facility] Address: [address] [place] [address] Performed By: #### 5 8410-2 ####[facility] LABCLIA [id number] [place] [address] [place] Platelet mean volume (Bld) [Entitic vol] 11.4 fL Normal 9.0-12.7 [facility] Comment on above: Order Comment: Speci men Type: BLOOD SPECIMENOrdering Facility: [facility] Address: [address] [place] [address] Performed By: #### 5 8410-2 ####[facility] LABCLIA [id number] [place] [address] [place] Platelets (Bld) [#/Vol] 170 10*3/uL Normal 150-400 [facility] Comment on above: Order Comment: Speci men Type: BLOOD SPECIMENOrdering Facility: [facility] Address: [address] [place] [address] Performed By: #### 5 8410-2 ####[facility] LABIA [id number] [place] [address] [place] RBC (Bld) [#/Vol] 3.19 10*6/uL Low 4.20-6.00 [facility] Comment on above: Order Comment: Speci men Type: BLOOD SPECIMENOrdering Facility: [facility] Address: [address] [place] [address] Performed By: #### 5 8410-2 ####[facility] LABIA [id number] [place] [id number] [place] WBC (Bld) [#/Vol] 11.11 10*3/uL High 3.70-11.00 [facility] Comment on above: Order Comment: Speci men Type: BLOOD SPECIMENOrdering Facility: [facility] Address: [address] [place] [address] Performed By: #### 5 8410-2 ####[facility] LABCLIA [id number] [place] [address] [place] CNDSon 11-01-2023 CNDS Normal [facility] CONSULT PROGon 11-01-2023 CONSULT PROG Normal [facility] Comprehensive metabolic 2000 panelon 11-01-2023 Albumin [Mass/Vol] 3.2 g/dL Low 3.9-4.9 [facility] Comment on above: Order Comment: Speci men Type: BLOOD SPECIMENOrdering Facility: [facility] Address: [address] [place] [address] Performed By: #### 2 4323-8 ####[facility] LABCLIA [id number] [place] [address] [place] ALP [Catalytic activity/Vol] 59 U/L Normal 38-113 [facility] Comment on above: Order Comment: Speci men Type: BLOOD SPECIMENOrdering Facility: [facility] Address: [address] [place] [address] Performed By: #### 2 4323-8 ####[facility] LABCLIA [id number] [place] [address] [place] ALT [Catalytic activity/Vol] 5 U/L Low 10-54 [facility] Comment on above: Order Comment: Speci men Type: BLOOD SPECIMENOrdering Facility: [facility] Address: [address] [place] [address] Performed By: #### 2 4323-8 ####[facility] LABCLIA [id number] [place] [address] [place] Anion gap [Moles/Vol] 12 mmol/L Normal 9-18 [facility] Comment on above: Order Comment: Speci men Type: BLOOD SPECIMENOrdering Facility: [facility] Address: [address] [place] [address] Performed By: #### 2 4323-8 ####[facility] LABCLIA [id number] [place] [address] [place] AST [Catalytic activity/Vol] 17 U/L Normal 14-40 [facility] Comment on above: Order Comment: Speci men Type: BLOOD SPECIMENOrdering Facility: [facility] Address: [address] [place] [address] Performed By: #### 2 4323-8 ####[facility] LABCLIA [id number] [place] [address] [place] Bilirubin [Mass/Vol] 0.4 mg/dL Normal 0.2-1.3 [facility] Comment on above: Order Comment: Speci men Type: BLOOD SPECIMENOrdering Facility: [facility] Address: [address] [place] [address] Performed By: #### 2 4323-8 ####[facility] LABCLIA [id number] [place] [address] [place] Calcium [Mass/Vol] 9.6 mg/dL Normal 8.5-10.2 [facility] Comment on above: Order Comment: Speci men Type: BLOOD SPECIMENOrdering Facility: [facility] Address: [address] [place] [address] Performed By: #### 2 4323-8 ####[facility] LABCLIA [id number] [place] [address] [place] Chloride [Moles/Vol] 96 mmol/L Low 97-105 [facility] Comment on above: Order Comment: Speci men Type: BLOOD SPECIMENOrdering Facility: [facility] Address: [address] [place] [address] Performed By: #### 2 4323-8 ####[facility] LABCLIA [id number] [place] [address] [place] CO2 [Moles/Vol] 24 mmol/L Normal 22-30 [facility] Comment on above: Order Comment: Speci men Type: BLOOD SPECIMENOrdering Facility: [facility] Address: [address] [place] [address] Performed By: #### 2 4323-8 ####[facility] LABCLIA [id number] [place] [id number] [place] Creatinine [Mass/Vol] 1.48 mg/dL High 0.73-1.22 [facility] Comment on above: Order Comment: Enma perry Type: BLOOD SPECIMENOrdering Facility: [facility] Address: [address] [place] [address] Performed By: #### 2 4323-8 ####[facility] LABIA [id number] [place] [address] [place] Creatinine and Glomerular filtration rate.predicted panel (S/P/Bld) 52 mL/min/1.73m??? Low >=60 [facility] Comment on above: Order Comment: Enma perry Type: BLOOD SPECIMENOrdering Facility: [facility] Address: [address] [place] [address] Result Comment: Gisselle mated Glomerular Filtration Rate [...] actual GFR. Performed By: #### 2 4323-8 ####[facility] LABIA [id number] [place] [address] [place] Glucose [Mass/Vol] 129 mg/dL High 74-99 [facility] Comment on above: Order Comment: Enma men Type: BLOOD SPECIMENOrdering Facility: [facility] Address: [address] [place] [address] Result Comment: The [place] [employer] (ADA) provides guidance for cutoff [...] Standards of Medical Care in Diabetes 2016, [place] [employer]. Diabetes Care. 2016.39(Suppl 1). Performed By: #### 2 4323-8 ####[facility] LABCLIA [id number] [place] [address] [place] Potassium [Moles/Vol] 4.4 mmol/L Normal 3.7-5.1 [facility] Comment on above: Order Comment: Speci men Type: BLOOD SPECIMENOrdering Facility: [facility] Address: [address] [place] [address] Performed By: #### 2 4323-8 ####[facility] LABCLIA [id number] [place] [address] [place] Protein [Mass/Vol] 5.7 g/dL Low 6.3-8.0 [facility] Comment on above: Order Comment: Speci men Type: BLOOD SPECIMENOrdering Facility: [facility] Address: [address] [place] [address] Performed By: #### 2 4323-8 ####[facility] LABCLIA [id number] [place] [address] [place] Sodium [Moles/Vol] 132 mmol/L Low 136-144 [facility] Comment on above: Order Comment: Speci men Type: BLOOD SPECIMENOrdering Facility: [facility] Address: [address] [place] [address] Performed By: #### 2 4323-8 ####[facility] LABCLIA [id number] [place] [address] [place] Urea nitrogen [Mass/Vol] 55 mg/dL High 9-24 [facility] Comment on above: Order Comment: Speci men Type: BLOOD SPECIMENOrdering Facility: [facility] Address: [address] [place] [address] Performed By: #### 2 4323-8 ####[facility] LABIA [id number] [place] [address] [place] ECG COMPLETEon 11-01-2023 ECG COMPLETE Normal [facility] ALLIED HEALTHon 10-31-2023 ALLIED HEALTH Normal [facility] CBC panel Auto (Bld)on 10-31 Erythrocyte distribution width (RBC) [Ratio] 16.8 % High 11.5-15.0 [facility] Comment on above: Order Comment: Speci men Type: BLOOD SPECIMENOrdering Facility: [facility] Address: [address] [place] [address] Performed By: #### 5 8410-2 ####[facility] [id number] [place] [address] [place] Hematocrit (Bld) [Volume fraction] 28.6 % Low 39.0-51.0 [facility] Comment on above: Order Comment: Speci men Type: BLOOD SPECIMENOrdering Facility: [facility] Address: [address] [place] [address] Performed By: #### 5 8410-2 ####[facility] LABIA [id number] [place] [address] [place] Hemoglobin (Bld) [Mass/Vol] 9.1 g/dL Low 13.0-17.0 [facility] Comment on above: Order Comment: Speci men Type: BLOOD SPECIMENOrdering Facility: [facility] Address: [address] [place] [address] Performed By: #### 5 8410-2 ####[facility] [id number] [place] [address] [place] MCH (RBC) [Entitic mass] 26.6 pg Normal 26.0-34.0 [facility] Comment on above: Order Comment: Speci men Type: BLOOD SPECIMENOrdering Facility: [facility] Address: [address] [place] [id number] Performed By: #### 5 8410-2 ####[facility] LABCLIA [id number] [place] [address] [place] MCHC (RBC) [Mass/Vol] 31.8 g/dL Normal 30.5-36.0 [facility] Comment on above: Order Comment: Speci men Type: BLOOD SPECIMENOrdering Facility: [facility] Address: [address] [place] [address] Performed By: #### 5 8410-2 ####[facility] LABIA [id number] [place] [address] [place] MCV (RBC) [Entitic vol] 83.6 fL Normal 80.0-100.0 [facility] Comment on above: Order Comment: Speci men Type: BLOOD SPECIMENOrdering Facility: [facility] Address: [address] [place] [address] Performed By: #### 5 8410-2 ####[facility] LABIA [id number] [place] [address] [place] Nucleated RBC (Bld) [#/Vol] 10*3/uL Normal <0.01 [facility] Comment on above: Order Comment: Speci men Type: BLOOD SPECIMENOrdering Facility: [facility] Address: [address] [place] [address] Performed By: #### 5 8410-2 ####[facility] LABIA [id number] [place] [address] [place] Platelet mean volume (Bld) [Entitic vol] 11.7 fL Normal 9.0-12.7 [facility] Comment on above: Order Comment: Speci men Type: BLOOD SPECIMENOrdering Facility: [facility] Address: [address] [place] [address] Performed By: #### 5 8410-2 ####[facility] LABIA [id number] [place] [id number] [place] Platelets (Bld) [#/Vol] 150 10*3/uL Normal 150-400 [facility] Comment on above: Order Comment: Speci men Type: BLOOD SPECIMENOrdering Facility: [facility] Address: [address] [place] [address] Performed By: #### 5 8410-2 ####[facility] LABCLIA [id number] [place] [address] [place] RBC (Bld) [#/Vol] 3.42 10*6/uL Low 4.20-6.00 [facility] Comment on above: Order Comment: Speci men Type: BLOOD SPECIMENOrdering Facility: [facility] Address: [address] [place] [address] Performed By: #### 5 8410-2 ####[facility] LABCLIA [id number] [place] [address] [place] WBC (Bld) [#/Vol] 14.84 10*3/uL High 3.70-11.00 [facility] Comment on above: Order Comment: Speci men Type: BLOOD SPECIMENOrdering Facility: [facility] Address: [address] [place] [address] Performed By: #### 5 8410-2 ####[facility] LABCLIA [id number] [place] [address] [place] CONSULT PROGon 10-31-2023 CONSULT PROG Normal [facility] Comprehensive metabolic 2000 panelon 10-31-2023 Albumin [Mass/Vol] 3.3 g/dL Low 3.9-4.9 [facility] Comment on above: Order Comment: Speci men Type: BLOOD SPECIMENOrdering Facility: [facility] Address: [address] [place] [address] Performed By: #### 2 4323-8, 97167-4 ####[facility] LABCLIA [id number] [place] [address] [place] ALP [Catalytic activity/Vol] 62 U/L Normal 38-113 [facility] Comment on above: Order Comment: Speci men Type: BLOOD SPECIMENOrdering Facility: [facility] Address: [address] [place] [address] Performed By: #### 2 4323-8, 56534-0 ####[facility] LABCLIA [id number] [place] [address] [place] ALT [Catalytic activity/Vol] 6 U/L Low 10-54 [facility] Comment on above: Order Comment: Speci men Type: BLOOD SPECIMENOrdering Facility: [facility] Address: [address] [place] [address] Performed By: #### 2 4323-8, 68610-6 ####[facility] LABCLIA [id number] [place] [address] [place] Anion gap [Moles/Vol] 13 mmol/L Normal 9-18 [facility] Comment on above: Order Comment: Speci men Type: BLOOD SPECIMENOrdering Facility: [facility] Address: [address] [place] [address] Performed By: #### 2 4323-8, ####[facility] LABCLIA [id number] [place] [address] [place] AST [Catalytic activity/Vol] 16 U/L Normal 14-40 [facility] Comment on above: Order Comment: Speci men Type: BLOOD SPECIMENOrdering Facility: [facility] Address: [address] [place] [address] Performed By: #### 2 4323-8, 79161-3 ####[facility] LABCLIA [id number] [place] [address] [place] Bilirubin [Mass/Vol] 0.5 mg/dL Normal 0.2-1.3 [facility] Comment on above: Order Comment: Speci men Type: BLOOD SPECIMENOrdering Facility: [facility] Address: [address] [place] [id number] Performed By: #### 2 4323-8, 22718-5 ####[facility] LABCLIA [id number] [address] [address] [place] Calcium [Mass/Vol] 8.8 mg/dL Normal 8.5-10.2 [facility] Comment on above: Order Comment: Speci men Type: BLOOD SPECIMENOrdering Facility: [facility] Address: [address] [place] [address] Performed By: #### 2 4323-8, 67151-2 ####[facility] LABCLIA [id number] [place] [address] [place] Chloride [Moles/Vol] 98 mmol/L Normal 97-105 [facility] Comment on above: Order Comment: Speci men Type: BLOOD SPECIMENOrdering Facility: [facility] Address: [address] [place] [address] Performed By: #### 2 4323-8, 15134-4 ####[facility] LABCLIA [id number] [place] [address] [place] CO2 [Moles/Vol] 23 mmol/L Normal 22-30 [facility] Comment on above: Order Comment: Speci men Type: BLOOD SPECIMENOrdering Facility: [facility] Address: [address] [place] [id number] Performed By: #### 2 4323-8, 51028-1 ####[facility] LABCLIA [id number] [address] [address] [place] Creatinine [Mass/Vol] 1.53 mg/dL High 0.73-1.22 [facility] Comment on above: Order Comment: Speci men Type: BLOOD SPECIMENOrdering Facility: [facility] Address: [address] [place] [address] Performed By: #### 2 4323-8, 63898-9 ####[facility] LABCLIA [id number] [place] [address] [place] Creatinine and Glomerular filtration rate.predicted panel (S/P/Bld) 50 mL/min/1.73m??? Low >=60 [facility] Comment on above: Order Comment: Enma perry Type: BLOOD SPECIMENOrdering Facility: [facility] Address: [address] [place] [address] Result Comment: Gisselle mated Glomerular Filtration Rate [...] actual GFR. Performed By: #### 2 4323-8, 64694-1 ####[facility] [id number] [place] [address] [place] Glucose [Mass/Vol] 165 mg/dL High 74-99 [facility] Comment on above: Order Comment: Enma perry Type: BLOOD SPECIMENOrdering Facility: [facility] Address: [address] [place] [address] Result Comment: The [place] [employer] (ADA) provides guidance for cutoff [...] Standards of Medical Care in Diabetes 2016, [employer]. Diabetes Care. 2016.39(Suppl 1). Performed By: #### 2 4323-8, 47053-8 ####[facility] [id number] [place] [address] [place] Potassium [Moles/Vol] 4.4 mmol/L Normal 3.7-5.1 [facility] Comment on above: Order Comment: Speci men Type: BLOOD SPECIMENOrdering Facility: [facility] Address: [address] [place] [address] Performed By: #### 2 4323-8, 75241-5 ####[facility] LABCLIA [id number] [place] [address] [place] Protein [Mass/Vol] 5.8 g/dL Low 6.3-8.0 [facility] Comment on above: Order Comment: Speci men Type: BLOOD SPECIMENOrdering Facility: [facility] Address: [address] [place] [address] Performed By: #### 2 4323-8, 92869-7 ####[facility] LABCLIA [id number] [place] [address] [place] Sodium [Moles/Vol] 134 mmol/L Low 136-144 [facility] Comment on above: Order Comment: Speci men Type: BLOOD SPECIMENOrdering Facility: [facility] Address: [address] [place] [address] Performed By: #### 2 4323-8, 89912-9 ####[facility] LABCLIA [id number] [place] [address] [place] Urea nitrogen [Mass/Vol] 44 mg/dL High 9-24 [facility] Comment on above: Order Comment: Speci men Type: BLOOD SPECIMENOrdering Facility: [facility] Address: [address] [place] [address] Performed By: #### 2 4323-8, 43076-4 ####[facility] LABCLIA [id number] [place] [id number] [place] ECG COMPLETEon 10-31-2023 ECG COMPLETE Normal [facility] [id number] 10-31-2023 ECG01 Normal [facility] Lipid 1996 panelon 3 Cholesterol [Mass/Vol] 108 mg/dL Normal <200 [facility] Comment on above: Order Comment: Speci men Type: BLOOD SPECIMENOrdering Facility: [facility] Address: [address] [place] [address] Result Comment: <200 mg/dL, Desirable 200-239 mg/dL, Borderline high>239 mg/dL, High Performed By: #### 2 4323-8, 79731-5 ####[facility] LABCLIA [id number] [place] [address] [place] Cholesterol in HDL [Mass/Vol] 39 mg/dL Low >39 [facility] Comment on above: Order Comment: Speci men Type: BLOOD SPECIMENOrdering Facility: [facility] Address: [address] [place] [address] Result Comment: 40-5 9 mg/dL, Acceptable>59 mg/dL, High: Negative risk factor for coronary heart disease<40 mg/dL, Low: Positive risk factor for coronary heart disease Performed By: #### 2 4323-8, 38168-4 ####[facility] LABCLIA [id number] [place] [address] [place] Cholesterol in LDL [Mass/Vol] 43 mg/dL Normal <100 [facility] Comment on above: Order Comment: Speci men Type: BLOOD SPECIMENOrdering Facility: [facility] Address: [address] [place] [address] Result Comment: <100 mg/dL, Optimal 100-129 mg/dL, Near optimal/above optimal 130-159 mg/dL, Borderline high 160-189 mg/dL, High>189 mg/dL, Very highSecondary prevention optimal LDL Cholesterol levels are recommended to be < 70 mg/dL Performed By: #### 2 4323-8, 89366-6 ####[facility] LABCLIA [id number] [place] [id number] [place] Cholesterol in LDL/Cholesterol in HDL [Mass ratio] 1.10 {ratio} Normal <2.54 [facility] Comment on above: Order Comment: Speci men Type: BLOOD SPECIMENOrdering Facility: [facility] Address: [address] [place] [address] Result Comment: Alix dow:1. National Cholesterol Education Program ATP III Guideline At-A-Glance Quick Desk Reference: National Heart, Lung, and Blood [place]. National Institutes of Health. 2001: NIH Publication No. 01-3305.2. An International Atherosclerosis Society position paper: global recommendations for the management of dyslipidemia: executive summary, Atherosclerosis. 2014: 232(2):410-413. Performed By: #### 2 4323-8, 32346-6 ####[facility] LABCLIA [id number] [place] [address] [place] Cholesterol in VLDL [Mass/Vol] 26 mg/dL Normal <30 [facility] Comment on above: Order Comment: Speci men Type: BLOOD SPECIMENOrdering Facility: [facility] Address: [address] [place] [address] Performed By: #### 2 4323-8, 76896-9 ####[facility] LABCLIA [id number] [place] [address] [place] Cholesterol non HDL [Mass/Vol] 69 mg/dL Normal <130 [facility] Comment on above: Order Comment: Speci men Type: BLOOD SPECIMENOrdering Facility: [facility] Address: [address] [place] [address] Result Comment: <130 mg/dL, Optimal 130-159 mg/dL, Near optimal/above optimal 160-189 mg/dL, Borderline high 190-219 mg/dL, High>219 mg/dL, Very highSecondary prevention optimal non HDL Cholesterol levels are recommended to be <100 mg/dL Performed By: #### 2 4323-8, 77434-1 ####[facility] LABCLIA [id number] [place] [address] [place] Cholesterol.total/Cho lesterol in HDL [Mass ratio] 2.77 {ratio} Normal <5.10 [facility] Comment on above: Order Comment: Speci men Type: BLOOD SPECIMENOrdering Facility: [facility] Address: [address] [place] [address] Performed By: #### 2 4323-8, 94920-8 ####[facility] LABCLIA [id number] [place] [address] [place] FASTING TIME 10 hrs Normal [facility] Comment on above: Order Comment: Speci men Type: BLOOD SPECIMENOrdering Facility: [facility] Address: [address] [place] [address] Performed By: #### 2 4323-8, 08778-4 ####[facility] LABCLIA [id number] [place] [address] [place] Triglyceride [Mass/Vol] 132 mg/dL Normal <150 [facility] Comment on above: Order Comment: Speci men Type: BLOOD SPECIMENOrdering Facility: [facility] Address: [address] [place] [address] Result Comment: <150 mg/dL, Normal 150-199 mg/dL, Borderline high 200-499 mg/dL, High>499 mg/dL, Very high Performed By: #### 2 4323-8, 09070-6 ####[facility] LABCLIA [id number] [place] [address] [place] THERAPY NTon 10-31-2023 THERAPY NT Normal [facility] CBC panel Auto (Bld)on 10-30 Erythrocyte distribution width (RBC) [Ratio] 16.9 % High 11.5-15.0 [facility] Comment on above: Order Comment: Speci men Type: BLOOD SPECIMENOrdering Facility: [facility] Address: [address] [place] [address] Performed By: #### 5 8410-2 ####[facility] LABCLIA [id number] [place] [address] [place] Hematocrit (Bld) [Volume fraction] 31.7 % Low 39.0-51.0 [facility] Comment on above: Order Comment: Speci men Type: BLOOD SPECIMENOrdering Facility: [facility] Address: [address] [place] [address] Performed By: #### 5 8410-2 ####[facility] [id number] [place] [address] [place] Hemoglobin (Bld) [Mass/Vol] 10.1 g/dL Low 13.0-17.0 [facility] Comment on above: Order Comment: Speci men Type: BLOOD SPECIMENOrdering Facility: [facility] Address: [address] [place] [address] Performed By: #### 5 8410-2 ####[facility] [id number] [place] [address] [place] MCH (RBC) [Entitic mass] 26.8 pg Normal 26.0-34.0 [facility] Comment on above: Order Comment: Speci men Type: BLOOD SPECIMENOrdering Facility: [facility] Address: [address] [place] [address] Performed By: #### 5 8410-2 ####[facility] [id number] [place] [address] [place] MCHC (RBC) [Mass/Vol] 31.9 g/dL Normal 30.5-36.0 [facility] Comment on above: Order Comment: Speci men Type: BLOOD SPECIMENOrdering Facility: [facility] Address: [address] [place] [address] Performed By: #### 5 8410-2 ####[facility] [id number] [place] [address] [place] MCV (RBC) [Entitic vol] 84.1 fL Normal 80.0-100.0 [facility] Comment on above: Order Comment: Speci men Type: BLOOD SPECIMENOrdering Facility: [facility] Address: [address] [place] [address] Performed By: #### 5 8410-2 ####[facility] LABCLIA [id number] [place] [address] [place] Nucleated RBC (Bld) [#/Vol] 10*3/uL Normal <0.01 [facility] Comment on above: Order Comment: Speci men Type: BLOOD SPECIMENOrdering Facility: [facility] Address: [address] [place] [address] Performed By: #### 5 8410-2 ####[facility] LABIA [id number] [place] [address] [place] Platelet mean volume (Bld) [Entitic vol] 11.8 fL Normal 9.0-12.7 [facility] Comment on above: Order Comment: Speci men Type: BLOOD SPECIMENOrdering Facility: [facility] Address: [address] [place] [address] Performed By: #### 5 8410-2 ####[facility] LABIA [id number] [place] [address] [place] Platelets (Bld) [#/Vol] 167 10*3/uL Normal 150-400 [facility] Comment on above: Order Comment: Speci men Type: BLOOD SPECIMENOrdering Facility: [facility] Address: [address] [place] [address] Performed By: #### 5 8410-2 ####[facility] LABIA [id number] [place] [address] [place] RBC (Bld) [#/Vol] 3.77 10*6/uL Low 4.20-6.00 [facility] Comment on above: Order Comment: Speci men Type: BLOOD SPECIMENOrdering Facility: [facility] Address: [address] [place] [address] Performed By: #### 5 8410-2 ####[facility] LABIA [id number] [place] [address] [place] WBC (Bld) [#/Vol] 17.15 10*3/uL High 3.70-11.00 [facility] Comment on above: Order Comment: Speci men Type: BLOOD SPECIMENOrdering Facility: [facility] Address: [address] [place] [address] Performed By: #### 5 8410-2 ####[facility] LABCLIA [id number] [place] [address] [place] Erythrocyte distribution width (RBC) [Ratio] 17.1 % High 11.5-15.0 [facility] Comment on above: Order Comment: Speci men Type: BLOOD SPECIMENOrdering Facility: [facility] Address: [address] [place] [address] Performed By: #### 5 8410-2 ####[facility] LABCLIA [id number] [place] [address] [place] Hematocrit (Bld) [Volume fraction] 32.5 % Low 39.0-51.0 [facility] Comment on above: Order Comment: Speci men Type: BLOOD SPECIMENOrdering Facility: [facility] Address: [address] [place] [address] Performed By: #### 5 8410-2 ####[facility] LABCLIA [id number] [place] [address] [place] Hemoglobin (Bld) [Mass/Vol] 9.9 g/dL Low 13.0-17.0 [facility] Comment on above: Order Comment: Speci men Type: BLOOD SPECIMENOrdering Facility: [facility] Address: [address] [place] [address] Performed By: #### 5 8410-2 ####[facility] LABCLIA [id number] [place] [address] [place] MCH (RBC) [Entitic mass] 26.0 pg Normal 26.0-34.0 [facility] Comment on above: Order Comment: Speci men Type: BLOOD SPECIMENOrdering Facility: [facility] Address: [address] [place] [address] Performed By: #### 5 8410-2 ####[facility] LABIA [id number] [place] [address] [place] MCHC (RBC) [Mass/Vol] 30.5 g/dL Normal 30.5-36.0 [facility] Comment on above: Order Comment: Speci men Type: BLOOD SPECIMENOrdering Facility: [facility] Address: [address] [place] [address] Performed By: #### 5 8410-2 ####[facility] LABIA [id number] [place] [address] [place] MCV (RBC) [Entitic vol] 85.3 fL Normal 80.0-100.0 [facility] Comment on above: Order Comment: Speci men Type: BLOOD SPECIMENOrdering Facility: [facility] Address: [address] [place] [address] Performed By: #### 5 8410-2 ####[facility] LABIA [id number] [place] [address] [place] Nucleated RBC (Bld) [#/Vol] 10*3/uL Normal <0.01 [facility] Comment on above: Order Comment: Speci men Type: BLOOD SPECIMENOrdering Facility: [facility] Address: [address] [place] [address] Performed By: #### 5 8410-2 ####[facility] LABCLIA [id number] [place] [address] [place] Platelet mean volume (Bld) [Entitic vol] 12.5 fL Normal 9.0-12.7 [facility] Comment on above: Order Comment: Speci men Type: BLOOD SPECIMENOrdering Facility: [facility] Address: [address] [place] [address] Performed By: #### 5 8410-2 ####[facility] LABCLIA [id number] [place] [address] [place] Platelets (Bld) [#/Vol] 157 10*3/uL Normal 150-400 [facility] Comment on above: Order Comment: Speci men Type: BLOOD SPECIMENOrdering Facility: [facility] Address: [address] [place] [address] Performed By: #### 5 8410-2 ####[facility] LABCLIA [id number] [place] [address] [place] RBC (Bld) [#/Vol] 3.81 10*6/uL Low 4.20-6.00 [facility] Comment on above: Order Comment: Speci men Type: BLOOD SPECIMENOrdering Facility: [facility] Address: [address] [place] [address] Performed By: #### 5 8410-2 ####[facility] LABIA [id number] [place] [address] [place] WBC (Bld) [#/Vol] 15.58 10*3/uL High 3.70-11.00 [facility] Comment on above: Order Comment: Speci men Type: BLOOD SPECIMENOrdering Facility: [facility] Address: [address] [place] [address] Performed By: #### 5 8410-2 ####[facility] LABIA [id number] [place] [address] [place] CNPNon 10-30-2023 CNPN Normal [facility] CONSULTon 10-30-2023 CONSULT Normal [facility] CT ABD/PEL WO IVCONon 2022 CT ABD/PEL WO IVCON Normal [facility] Comprehensive metabolic 2000 panelon 10-30-2023 Albumin [Mass/Vol] 3.7 g/dL Low 3.9-4.9 [facility] Comment on above: Order Comment: Speci men Type: BLOOD SPECIMENOrdering Facility: [facility] Address: [address] [place] [address] Performed By: #### 2 4323-8, ####[facility] LABCLIA [id number] [address] [address] [place] ALP [Catalytic activity/Vol] 59 U/L Normal 38-113 [facility] Comment on above: Order Comment: Speci men Type: BLOOD SPECIMENOrdering Facility: [facility] Address: [address] [place] [address] Performed By: #### 2 8, ####[facility] LABCLIA [id number] [place] [address] [place] ALT [Catalytic activity/Vol] 12 U/L Normal 10-54 [facility] Comment on above: Order Comment: Speci men Type: BLOOD SPECIMENOrdering Facility: [facility] Address: [address] [place] [address] Performed By: #### 2 4323-06, ####[facility] LABCLIA [id number] [place] [address] [place] Anion gap [Moles/Vol] 11 mmol/L Normal 9-18 [facility] Comment on above: Order Comment: Speci men Type: BLOOD SPECIMENOrdering Facility: [facility] Address: [address] [place] [address] Performed By: #### 2 4323-06, ####[facility] LABCLIA [id number] [place] [id number] [place] AST [Catalytic activity/Vol] 18 U/L Normal 14-40 [facility] Comment on above: Order Comment: Speci men Type: BLOOD SPECIMENOrdering Facility: [facility] Address: [address] [place] [address] Performed By: #### 2 4323-8, ####[facility] LABCLIA [id number] [address] [id number] [address] [place] Bilirubin [Mass/Vol] 0.3 mg/dL Normal 0.2-1.3 [facility] Comment on above: Order Comment: Speci men Type: BLOOD SPECIMENOrdering Facility: [facility] Address: [address] [place] [address] Performed By: #### 2 43201-28, ####[facility] LABCLIA [id number] [place] [address] [place] Calcium [Mass/Vol] 8.8 mg/dL Normal 8.5-10.2 [facility] Comment on above: Order Comment: Speci men Type: BLOOD SPECIMENOrdering Facility: [facility] Address: [address] [place] [address] Performed By: #### 2 4323-06, ####[facility] LABCLIA [id number] [place] [address] [place] Chloride [Moles/Vol] 99 mmol/L Normal 97-105 [facility] Comment on above: Order Comment: Speci men Type: BLOOD SPECIMENOrdering Facility: [facility] Address: [address] [place] [address] Performed By: #### 2 4323-06, ####[facility] LABCLIA [id number] [place] [address] [place] CO2 [Moles/Vol] 26 mmol/L Normal 22-30 [facility] Comment on above: Order Comment: Speci men Type: BLOOD SPECIMENOrdering Facility: [facility] Address: [address] [place] [address] Performed By: #### 2 4323-06, ####[facility] LABCLIA [id number] [address] [address] [place] Creatinine [Mass/Vol] 1.83 mg/dL High 0.73-1.22 [facility] Comment on above: Order Comment: Speci men Type: BLOOD SPECIMENOrdering Facility: [facility] Address: [address] [place] [address] Performed By: #### 2 4323-8, ####[facility] LABIA [id number] [place] [address] [place] Creatinine and Glomerular filtration rate.predicted panel (S/P/Bld) 40 mL/min/1.73m??? Low >=60 [facility] Comment on above: Order Comment: Alexandroi men Type: BLOOD SPECIMENOrdering Facility: [facility] Address: [address] [place] [address] Result Comment: Gisselle mated Glomerular Filtration Rate [...] actual GFR. Performed By: #### 2 4323-8, ####[facility] LABIA [id number] [place] [address] [place] Glucose [Mass/Vol] 163 mg/dL High 74-99 [facility] Comment on above: Order Comment: Enma orlando Type: BLOOD SPECIMENOrdering Facility: [facility] Address: [address] [place] [address] Result Comment: [employer] (ADA) provides guidance for cutoff [...] Standards of Medical Care in Diabetes 2016, [employer]. Diabetes Care. 2016.39(Suppl 1). Performed By: #### 2 432-8, ####[facility] LABCLIA [id number] [place] [address] [place] Potassium [Moles/Vol] 4.5 mmol/L Normal 3.7-5.1 [facility] Comment on above: Order Comment: Speci men Type: BLOOD SPECIMENOrdering Facility: [facility] Address: [address] [place] [address] Performed By: #### 2 4328, ####[facility] LABCLIA [id number] [place] [address] [place] Protein [Mass/Vol] 5.9 g/dL Low 6.3-8.0 [facility] Comment on above: Order Comment: Speci men Type: BLOOD SPECIMENOrdering Facility: [facility] Address: [address] [place] [address] Performed By: #### 2 4323-06, ####[facility] LABCLIA [id number] [place] [address] [place] Sodium [Moles/Vol] 136 mmol/L Normal 136-144 [facility] Comment on above: Order Comment: Speci men Type: BLOOD SPECIMENOrdering Facility: [facility] Address: [address] [place] [id number] Performed By: #### 2 4323-06, ####[facility] LABCLIA [id number] [place] [id number] [place] Urea nitrogen [Mass/Vol] 33 mg/dL High 9-24 [facility] Comment on above: Order Comment: Speci men Type: BLOOD SPECIMENOrdering Facility: [facility] Address: [address] [place] [id number] Performed By: #### 2 432-8, ####[facility] LABCLIA [id number] [place] [id number] [place] ECG COMPLETEon 10-30-2023 ECG COMPLETE Normal [facility] Magnesium SerPl-mCncon 10-30 Magnesium [Mass/Vol] 2.3 mg/dL Normal 1.7-2.3 [facility] Comment on above: Order Comment: Speci men Type: BLOOD SPECIMENOrdering Facility: [facility] Address: [address] [place] [address] Performed By: #### 2 4323-8, 41439-6 ####[facility] LABCLIA [id number] [place] [address] [place] SEPSIS LACTATEon 10-30-2023 Lactate [Moles/Vol] 1.6 mmol/L Normal <=2.0 [facility] Comment on above: Order Comment: Speci men Type: BLOOD SPECIMENOrdering Facility: [facility] Address: [address] [place] [address] Performed By: #### S LACT ####[facility] LABCLIA [id number] [place] [address] [place] XR CHEST 2V FRONTAL/LATon XR CHEST 2V FRONTAL/LAT Normal [facility] ARTERIAL BLOOD GASESon 10-29 Base excess Calc (Bld) [Moles/Vol] 1 mmol/L Normal 0-2 [facility] Comment on above: Order Comment: Speci men Type: ARTERIAL BLOOD SPECIMENOrdering Facility: [facility] Address: [address] [place] [address] Performed By: #### A LLBG ####[facility] LABCLIA [id number] [place] [address] [place] Body temperature 98.6 [degF] Normal [facility] Comment on above: Order Comment: Speci men Type: ARTERIAL BLOOD SPECIMENOrdering Facility: [facility] Address: [address] [place] [address] Performed By: #### A LLBG ####[facility] LABCLIA [id number] [place] [address] [place] Calcium.ionized (Bld) [Mass/Vol] 1.18 mmol/L Normal 1.08-1.30 [facility] Comment on above: Order Comment: Speci men Type: ARTERIAL BLOOD SPECIMENOrdering Facility: [facility] Address: [address] [place] [address] Performed By: #### A LLBG ####[facility]ITAL[facility] [id number] [place] [address] [place] Calcium.ionized adjusted to pH 7.4 (BldA) [Moles/Vol] 1.15 mmol/L Normal 1.08-1.30 [facility] Comment on above: Order Comment: Speci men Type: ARTERIAL BLOOD SPECIMENOrdering Facility: [facility] Address: [address] [place] [address] Performed By: #### A LLBG ####[facility] [id number] [place] [address] [place] Carboxyhemoglobin (BldA) [Mass fraction] 2.0 % Normal 0.0-2.0 [facility] Comment on above: Order Comment: Speci men Type: ARTERIAL BLOOD SPECIMENOrdering Facility: [facility] Address: [address] [place] [address] Result Comment: Carb oxyhemoglobin Reference Range for Smokers: 2.0-8.0% Performed By: #### A LLBG ####[facility] LABIA [id number] [place] [address] [place] CO2 (Bld) [Partial pressure] 49 mm Hg High 36-46 [facility] Comment on above: Order Comment: Speci men Type: ARTERIAL BLOOD SPECIMENOrdering Facility: [facility] Address: [address] [place] [address] Performed By: #### A LLBG ####[facility] LABIA [id number] [address] [id number] [address] [place] Glucose [Mass/Vol] 145 mg/dL High 60-105 [facility] Comment on above: Order Comment: Speci men Type: ARTERIAL BLOOD SPECIMENOrdering Facility: [facility] Address: [address] [place] [address] Performed By: #### A LLBG ####[facility] LABCLIA [id number] [place] [address] [place] HCO3 (Bld) [Moles/Vol] 27 mmol/L High 22-26 [facility] Comment on above: Order Comment: Speci men Type: ARTERIAL BLOOD SPECIMENOrdering Facility: [facility] Address: [address] [place] [address] Performed By: #### A LLBG ####[facility] LABCLIA [id number] [place] [address] [place] Hematocrit (Bld) [Volume fraction] 32.0 % Low 39.0-51.0 [facility] Comment on above: Order Comment: Speci men Type: ARTERIAL BLOOD SPECIMENOrdering Facility: [facility] Address: [address] [place] [address] Performed By: #### A LLBG ####[facility] LABCLIA [id number] [place] [address] [place] Hemoglobin (Bld) [Mass/Vol] 10.4 g/dL Low 13.0-17.0 [facility] Comment on above: Order Comment: Speci men Type: ARTERIAL BLOOD SPECIMENOrdering Facility: [facility] Address: [address] [place] [address] Performed By: #### A LLBG ####[facility] LABCLIA [id number] [place] [address] [place] Lactate [Moles/Vol] 0.8 mmol/L Normal 0.5-2.2 [facility] Comment on above: Order Comment: Speci men Type: ARTERIAL BLOOD SPECIMENOrdering Facility: [facility] Address: [address] [place] [address] Performed By: #### A LLBG ####[facility] LABCLIA [id number] [place] [address] [place] LITERS 1 Liters/min Normal [facility] Comment on above: Order Comment: Speci men Type: ARTERIAL BLOOD SPECIMENOrdering Facility: [facility] Address: [address] [place] [address] Performed By: #### A LLBG ####[facility] LABCLIA [id number] [place] [address] [place] Methemoglobin (Bld) [Mass fraction] 1.4 % Normal 0.0-1.5 [facility] Comment on above: Order Comment: Speci men Type: ARTERIAL BLOOD SPECIMENOrdering Facility: [facility] Address: [address] [place] [address] Performed By: #### A LLBG ####[facility] LABCLIA [id number] [place] [address] [place] O2 THERAPY [place] = Nasal Cannula Normal [facility] Comment on above: Order Comment: Speci men Type: ARTERIAL BLOOD SPECIMENOrdering Facility: [facility] Address: [address] [place] [address] Performed By: #### A LLBG ####[facility] LABIA [id number] [place] [address] [place] Oxygen (Bld) [Partial pressure] 99 mm Hg High 85-95 [facility] Comment on above: Order Comment: Speci men Type: ARTERIAL BLOOD SPECIMENOrdering Facility: [facility] Address: [address] [place] [address] Performed By: #### A LLBG ####[facility] LABCLIA [id number] [place] [id number] [place] Oxyhemoglobin (BldA) [Mass fraction] 95 % Normal 95-98 [facility] Comment on above: Order Comment: Speci men Type: ARTERIAL BLOOD SPECIMENOrdering Facility: [facility] Address: [address] [place] [address] Performed By: #### A LLBG ####[facility] LABCLIA [id number] [place] [address] [place] pH (Bld) 7.35 [pH] Normal 7.35-7.45 [facility] Comment on above: Order Comment: Speci men Type: ARTERIAL BLOOD SPECIMENOrdering Facility: [facility] Address: [address] [place] [address] Performed By: #### A LLBG ####[facility] LABCLIA [id number] [place] [address] [place] Potassium [Moles/Vol] 4.1 mmol/L Normal 3.5-5.0 [facility] Comment on above: Order Comment: Speci men Type: ARTERIAL BLOOD SPECIMENOrdering Facility: [facility] Address: [address] [place] [address] Performed By: #### A LLBG ####[facility] LABCLIA [id number] [place] [address] [place] Sodium [Moles/Vol] 137 mmol/L Normal 136-144 [facility] Comment on above: Order Comment: Speci men Type: ARTERIAL BLOOD SPECIMENOrdering Facility: [facility] Address: [address] [place] [address] Performed By: #### A LLBG ####[facility] LABCLIA [id number] [place] [address] [place] Base excess Calc (Bld) [Moles/Vol] 0 mmol/L Normal 0-2 [facility] Comment on above: Order Comment: Speci men Type: ARTERIAL BLOOD SPECIMENOrdering Facility: [facility] Address: [address] [place] [address] Performed By: #### A LLBG ####[facility] LABCLIA [id number] [place] [address] [place] Body temperature 98.6 [degF] Normal [facility] Comment on above: Order Comment: Speci men Type: ARTERIAL BLOOD SPECIMENOrdering Facility: [facility] Address: [address] [place] [address] Performed By: #### A LLBG ####[facility] LABCLIA [id number] [place] [address] [place] Calcium.ionized (Bld) [Mass/Vol] 1.15 mmol/L Normal 1.08-1.30 [facility] Comment on above: Order Comment: Speci men Type: ARTERIAL BLOOD SPECIMENOrdering Facility: [facility] Address: [address] [place] [address] Performed By: #### A LLBG ####[facility] LABCLIA [id number] [place] [address] [place] Calcium.ionized adjusted to pH 7.4 (BldA) [Moles/Vol] 1.14 mmol/L Normal 1.08-1.30 [facility] Comment on above: Order Comment: Speci men Type: ARTERIAL BLOOD SPECIMENOrdering Facility: [facility] Address: [address] [place] [address] Performed By: #### A LLBG ####[facility] LABCLIA [id number] [place] [address] [place] Carboxyhemoglobin (BldA) [Mass fraction] 1.9 % Normal 0.0-2.0 [facility] Comment on above: Order Comment: Speci men Type: ARTERIAL BLOOD SPECIMENOrdering Facility: [facility] Address: [address] [place] [address] Result Comment: Carb oxyhemoglobin Reference Range for Smokers: 2.0-8.0% Performed By: #### A LLBG ####[facility] LABCLIA [id number] [place] [address] [place] CO2 (Bld) [Partial pressure] 43 mm Hg Normal 36-46 [facility] Comment on above: Order Comment: Speci men Type: ARTERIAL BLOOD SPECIMENOrdering Facility: [facility] Address: [address] [place] [address] Performed By: #### A LLBG ####[facility] LABCLIA [id number] [place] [address] [place] Glucose [Mass/Vol] 145 mg/dL High 60-105 [facility] Comment on above: Order Comment: Speci men Type: ARTERIAL BLOOD SPECIMENOrdering Facility: [facility] Address: [address] [place] [address] Performed By: #### A LLBG ####[facility] LABCLIA [id number] [place] [address] [place] HCO3 (Bld) [Moles/Vol] 25 mmol/L Normal 22-26 [facility] Comment on above: Order Comment: Speci men Type: ARTERIAL BLOOD SPECIMENOrdering Facility: [facility] Address: [address] [place] [address] Performed By: #### A LLBG ####[facility] LABCLIA [id number] [place] [address] [place] Hematocrit (Bld) [Volume fraction] 30.8 % Low 39.0-51.0 [facility] Comment on above: Order Comment: Speci men Type: ARTERIAL BLOOD SPECIMENOrdering Facility: [facility] Address: [address] [place] [address] Performed By: #### A LLBG ####[facility] LABCLIA [id number] [place] [address] [place] Hemoglobin (Bld) [Mass/Vol] 9.9 g/dL Low 13.0-17.0 [facility] Comment on above: Order Comment: Speci men Type: ARTERIAL BLOOD SPECIMENOrdering Facility: [facility] Address: [address] [place] [address] Performed By: #### A LLBG ####[facility] LABCLIA [id number] [place] [address] [place] Lactate [Moles/Vol] 0.7 mmol/L Normal 0.5-2.2 [facility] Comment on above: Order Comment: Speci men Type: ARTERIAL BLOOD SPECIMENOrdering Facility: [facility] Address: [address] [place] [address] Performed By: #### A LLBG ####[facility] LABCLIA [id number] [place] [address] [place] LITERS 2 Liters/min Normal [facility] Comment on above: Order Comment: Speci men Type: ARTERIAL BLOOD SPECIMENOrdering Facility: [facility] Address: [address] [place] [address] Performed By: #### A LLBG ####[facility] LABCLIA [id number] [place] [address] [place] Methemoglobin (Bld) [Mass fraction] 0.4 % Normal 0.0-1.5 [facility] Comment on above: Order Comment: Speci men Type: ARTERIAL BLOOD SPECIMENOrdering Facility: [facility] Address: [address] [place] [address] Performed By: #### A LLBG ####[facility] LABIA [id number] [place] [address] [place] O2 THERAPY [place] = Nasal Cannula Normal [facility] Comment on above: Order Comment: Speci men Type: ARTERIAL BLOOD SPECIMENOrdering Facility: [facility] Address: [address] [place] [address] Performed By: #### A LLBG ####[facility] LABIA [id number] [place] [address] [place] Oxygen (Bld) [Partial pressure] 140 mm Hg High 85-95 [facility] Comment on above: Order Comment: Speci men Type: ARTERIAL BLOOD SPECIMENOrdering Facility: [facility] Address: [address] [place] [address] Performed By: #### A LLBG ####[facility] LABIA [id number] [place] [address] [place] Oxyhemoglobin (BldA) [Mass fraction] 97 % Normal 95-98 [facility] Comment on above: Order Comment: Speci men Type: ARTERIAL BLOOD SPECIMENOrdering Facility: [facility] Address: [address] [place] [address] Performed By: #### A LLBG ####[facility] LABIA [id number] [place] [address] [place] pH (Bld) 7.38 [pH] Normal 7.35-7.45 [facility] Comment on above: Order Comment: Speci men Type: ARTERIAL BLOOD SPECIMENOrdering Facility: [facility] Address: [address] [place] [address] Performed By: #### A LLBG ####[facility] LABIA [id number] [place] [address] [place] Potassium [Moles/Vol] 4.4 mmol/L Normal 3.5-5.0 [facility] Comment on above: Order Comment: Speci men Type: ARTERIAL BLOOD SPECIMENOrdering Facility: [facility] Address: [address] [place] [address] Performed By: #### A LLBG ####[facility] LABIA [id number] [place] [address] [place] Sodium [Moles/Vol] 137 mmol/L Normal 136-144 [facility] Comment on above: Order Comment: Speci men Type: ARTERIAL BLOOD SPECIMENOrdering Facility: [facility] Address: [address] [place] [address] Performed By: #### A LLBG ####[facility] LABIA [id number] [place] [address] [place] Base excess Calc (Bld) [Moles/Vol] 1 mmol/L Normal 0-2 [facility] Comment on above: Order Comment: Speci men Type: ARTERIAL BLOOD SPECIMENOrdering Facility: [facility] Address: [address] [place] [address] Performed By: #### A LLBG ####[facility] LABIA [id number] [place] [address] [place] Body temperature 97.88 [degF] Normal [facility] Comment on above: Order Comment: Speci men Type: ARTERIAL BLOOD SPECIMENOrdering Facility: [facility] Address: [address] [place] [address] Performed By: #### A LLBG ####[facility] LABIA [id number] [place] [address] [place] Calcium.ionized (Bld) [Mass/Vol] 1.15 mmol/L Normal 1.08-1.30 [facility] Comment on above: Order Comment: Speci men Type: ARTERIAL BLOOD SPECIMENOrdering Facility: [facility] Address: [address] [place] [address] Performed By: #### A LLBG ####[facility] LABIA [id number] [place] [address] [place] Calcium.ionized adjusted to pH 7.4 (BldA) [Moles/Vol] 1.15 mmol/L Normal 1.08-1.30 [facility] Comment on above: Order Comment: Speci men Type: ARTERIAL BLOOD SPECIMENOrdering Facility: [facility] Address: [address] [place] [address] Performed By: #### A LLBG ####[facility] LABIA [id number] [place] [address] [place] Carboxyhemoglobin (BldA) [Mass fraction] 1.7 % Normal 0.0-2.0 [facility] Comment on above: Order Comment: Speci men Type: ARTERIAL BLOOD SPECIMENOrdering Facility: [facility] Address: [address] [place] [address] Result Comment: Carb oxyhemoglobin Reference Range for Smokers: 2.0-8.0% Performed By: #### A LLBG ####[facility] LABCLIA [id number] [place] [address] [place] CO2 (Bld) [Partial pressure] 42 mm Hg Normal 36-46 [facility] Comment on above: Order Comment: Speci men Type: ARTERIAL BLOOD SPECIMENOrdering Facility: [facility] Address: [address] [place] [address] Performed By: #### A LLBG ####[facility] LABCLIA [id number] [place] [address] [place] CO2 adjusted to patient's actual temperature (Bld) [Partial pressure] 41 mmHg Normal 36-46 [facility] Comment on above: Order Comment: Speci men Type: ARTERIAL BLOOD SPECIMENOrdering Facility: [facility] Address: [address] [place] [address] Performed By: #### A LLBG ####[facility] LABCLIA [id number] [place] [address] [place] Glucose [Mass/Vol] 120 mg/dL High 60-105 [facility] Comment on above: Order Comment: Speci men Type: ARTERIAL BLOOD SPECIMENOrdering Facility: [facility] Address: [address] [place] [address] Performed By: #### A LLBG ####[facility] LABCLIA [id number] [place] [address] [place] HCO3 (Bld) [Moles/Vol] 26 mmol/L Normal 22-26 [facility] Comment on above: Order Comment: Speci men Type: ARTERIAL BLOOD SPECIMENOrdering Facility: [facility] Address: [address] [place] [address] Performed By: #### A LLBG ####[facility] LABCLIA [id number] [place] [address] [place] Hematocrit (Bld) [Volume fraction] 30.5 % Low 39.0-51.0 [facility] Comment on above: Order Comment: Speci men Type: ARTERIAL BLOOD SPECIMENOrdering Facility: [facility] Address: [address] [place] [address] Performed By: #### A LLBG ####[facility] LABCLIA [id number] [place] [address] [place] Hemoglobin (Bld) [Mass/Vol] 9.8 g/dL Low 13.0-17.0 [facility] Comment on above: Order Comment: Speci men Type: ARTERIAL BLOOD SPECIMENOrdering Facility: [facility] Address: [address] [place] [address] Performed By: #### A LLBG ####[facility] LABCLIA [id number] [place] [address] [place] Lactate [Moles/Vol] 0.6 mmol/L Normal 0.5-2.2 [facility] Comment on above: Order Comment: Speci men Type: ARTERIAL BLOOD SPECIMENOrdering Facility: [facility] Address: [address] [place] [address] Performed By: #### A LLBG ####[facility] LABCLIA [id number] [place] [address] [place] LITERS 2 Liters/min Normal [facility] Comment on above: Order Comment: Speci men Type: ARTERIAL BLOOD SPECIMENOrdering Facility: [facility] Address: [address] [place] [address] Performed By: #### A LLBG ####[facility] LABCLIA [id number] [place] [address] [place] Methemoglobin (Bld) [Mass fraction] 1.0 % Normal 0.0-1.5 [facility] Comment on above: Order Comment: Speci men Type: ARTERIAL BLOOD SPECIMENOrdering Facility: [facility] Address: [address] [place] [address] Performed By: #### A LLBG ####[facility] LABCLIA [id number] [place] [address] [place] O2 THERAPY [place] = Nasal Cannula Normal [facility] Comment on above: Order Comment: Speci men Type: ARTERIAL BLOOD SPECIMENOrdering Facility: [facility] Address: [address] [place] [address] Performed By: #### A LLBG ####[facility] LABCLIA [id number] [place] [address] [place] Oxygen (Bld) [Partial pressure] 99 mm Hg High 85-95 [facility] Comment on above: Order Comment: Speci men Type: ARTERIAL BLOOD SPECIMENOrdering Facility: [facility] Address: [address] [place] [address] Performed By: #### A LLBG ####[facility] LABCLIA [id number] [place] [address] [place] Oxygen adjusted to patient's actual temperature (Bld) [Partial pressure] 97 mmHg High 85-95 [facility] Comment on above: Order Comment: Speci men Type: ARTERIAL BLOOD SPECIMENOrdering Facility: [facility] Address: [address] [place] [address] Performed By: #### A LLBG ####[facility] LABCLIA [id number] [place] [address] [place] Oxyhemoglobin (BldA) [Mass fraction] 95 % Normal 95-98 [facility] Comment on above: Order Comment: Speci men Type: ARTERIAL BLOOD SPECIMENOrdering Facility: [facility] Address: [address] [place] [address] Performed By: #### A LLBG ####[facility] LABCLIA [id number] [place] [id number] [place] pH (Bld) 7.41 [pH] Normal 7.35-7.45 [facility] Comment on above: Order Comment: Speci men Type: ARTERIAL BLOOD SPECIMENOrdering Facility: [facility] Address: [address] [place] [address] Performed By: #### A LLBG ####[facility] LABCLIA [id number] [place] [address] [place] pH adjusted to patient's actual temperature (Bld) 7.41 Normal 7.35-7.45 [facility] Comment on above: Order Comment: Speci men Type: ARTERIAL BLOOD SPECIMENOrdering Facility: [facility] Address: [address] [place] [address] Performed By: #### A LLBG ####[facility] LABCLIA [id number] [place] [address] [place] Potassium [Moles/Vol] 4.2 mmol/L Normal 3.5-5.0 [facility] Comment on above: Order Comment: Speci men Type: ARTERIAL BLOOD SPECIMENOrdering Facility: [facility] Address: [address] [place] [address] Performed By: #### A LLBG ####[facility] LABCLIA [id number] [place] [address] [place] Sodium [Moles/Vol] 137 mmol/L Normal 136-144 [facility] Comment on above: Order Comment: Speci men Type: ARTERIAL BLOOD SPECIMENOrdering Facility: [facility] Address: [address] [place] [address] Performed By: #### A LLBG ####[facility] LABCLIA [id number] [place] [address] [place] Base excess Calc (Bld) [Moles/Vol] 1 mmol/L Normal 0-2 [facility] Comment on above: Order Comment: Speci men Type: ARTERIAL BLOOD SPECIMENOrdering Facility: [facility] Address: [address] [place] [address] Performed By: #### A LLBG ####[facility] LABCLIA [id number] [place] [address] [place] Body temperature 98.24 [degF] Normal [facility] Comment on above: Order Comment: Speci men Type: ARTERIAL BLOOD SPECIMENOrdering Facility: [facility] Address: [address] [place] [address] Performed By: #### A LLBG ####[facility] LABCLIA [id number] [place] [address] [place] Calcium.ionized (Bld) [Mass/Vol] 1.18 mmol/L Normal 1.08-1.30 [facility] Comment on above: Order Comment: Speci men Type: ARTERIAL BLOOD SPECIMENOrdering Facility: [facility] Address: [address] [place] [address] Performed By: #### A LLBG ####[facility] LABIA [id number] [place] [address] [place] Calcium.ionized adjusted to pH 7.4 (BldA) [Moles/Vol] 1.17 mmol/L Normal 1.08-1.30 [facility] Comment on above: Order Comment: Speci men Type: ARTERIAL BLOOD SPECIMENOrdering Facility: [facility] Address: [address] [place] [address] Performed By: #### A LLBG ####[facility] LABIA [id number] [place] [address] [place] Carboxyhemoglobin (BldA) [Mass fraction] 2.2 % High 0.0-2.0 [facility] Comment on above: Order Comment: Speci men Type: ARTERIAL BLOOD SPECIMENOrdering Facility: [facility] Address: [address] [place] [address] Result Comment: Carb oxyhemoglobin Reference Range for Smokers: 2.0-8.0% Performed By: #### A LLBG ####[facility] LABIA [id number] [address] [address] [place] CO2 (Bld) [Partial pressure] 44 mm Hg Normal 36-46 [facility] Comment on above: Order Comment: Speci men Type: ARTERIAL BLOOD SPECIMENOrdering Facility: [facility] Address: [address] [place] [address] Performed By: #### A LLBG ####[facility] LABCLIA [id number] [place] [address] [place] CO2 adjusted to patient's actual temperature (Bld) [Partial pressure] 44 mmHg Normal 36-46 [facility] Comment on above: Order Comment: Speci men Type: ARTERIAL BLOOD SPECIMENOrdering Facility: [facility] Address: [address] [place] [address] Performed By: #### A LLBG ####[facility] LABCLIA [id number] [place] [address] [place] Glucose [Mass/Vol] 140 mg/dL High 60-105 [facility] Comment on above: Order Comment: Speci men Type: ARTERIAL BLOOD SPECIMENOrdering Facility: [facility] Address: [address] [place] [address] Performed By: #### A LLBG ####[facility] LABCLIA [id number] [place] [address] [place] HCO3 (Bld) [Moles/Vol] 26 mmol/L Normal 22-26 [facility] Comment on above: Order Comment: Speci men Type: ARTERIAL BLOOD SPECIMENOrdering Facility: [facility] Address: [address] [place] [address] Performed By: #### A LLBG ####[facility] LABCLIA [id number] [place] [address] [place] Hematocrit (Bld) [Volume fraction] 30.5 % Low 39.0-51.0 [facility] Comment on above: Order Comment: Speci men Type: ARTERIAL BLOOD SPECIMENOrdering Facility: [facility] Address: [address] [place] [address] Performed By: #### A LLBG ####[facility] LABCLIA [id number] [place] [address] [place] Hemoglobin (Bld) [Mass/Vol] 9.8 g/dL Low 13.0-17.0 [facility] Comment on above: Order Comment: Speci men Type: ARTERIAL BLOOD SPECIMENOrdering Facility: [facility] Address: [address] [place] [address] Performed By: #### A LLBG ####[facility] LABCLIA [id number] [place] [address] [place] Lactate [Moles/Vol] 0.8 mmol/L Normal 0.5-2.2 [facility] Comment on above: Order Comment: Speci men Type: ARTERIAL BLOOD SPECIMENOrdering Facility: [facility] Address: [address] [place] [address] Performed By: #### A LLBG ####[facility] LABCLIA [id number] [place] [address] [place] LITERS 3 Liters/min Normal [facility] Comment on above: Order Comment: Speci men Type: ARTERIAL BLOOD SPECIMENOrdering Facility: [facility] Address: [address] [place] [address] Result Comment: ` Performed By: #### A LLBG ####[facility] LABCLIA [id number] [place] [address] [place] Methemoglobin (Bld) [Mass fraction] 1.0 % Normal 0.0-1.5 [facility] Comment on above: Order Comment: Speci men Type: ARTERIAL BLOOD SPECIMENOrdering Facility: [facility] Address: [address] [place] [address] Performed By: #### A LLBG ####[facility] LABCLIA [id number] [place] [address] [place] O2 THERAPY [place] = Nasal Cannula Normal [facility] Comment on above: Order Comment: Speci men Type: ARTERIAL BLOOD SPECIMENOrdering Facility: [facility] Address: [address] [place] [address] Performed By: #### A LLBG ####[facility] LABCLIA [id number] [place] [address] [place] Oxygen (Bld) [Partial pressure] 121 mm Hg High 85-95 [facility] Comment on above: Order Comment: Speci men Type: ARTERIAL BLOOD SPECIMENOrdering Facility: [facility] Address: [address] [place] [address] Performed By: #### A LLBG ####[facility] LABCLIA [id number] [place] [address] [place] Oxygen adjusted to patient's actual temperature (Bld) [Partial pressure] 120 mmHg High 85-95 [facility] Comment on above: Order Comment: Speci men Type: ARTERIAL BLOOD SPECIMENOrdering Facility: [facility] Address: [address] [place] [address] Performed By: #### A LLBG ####[facility] LABCLIA [id number] [place] [address] [place] Oxyhemoglobin (BldA) [Mass fraction] 96 % Normal 95-98 [facility] Comment on above: Order Comment: Speci men Type: ARTERIAL BLOOD SPECIMENOrdering Facility: [facility] Address: [address] [place] [address] Performed By: #### A LLBG ####[facility] LABCLIA [id number] [place] [address] [place] pH (Bld) 7.38 [pH] Normal 7.35-7.45 [facility] Comment on above: Order Comment: Speci men Type: ARTERIAL BLOOD SPECIMENOrdering Facility: [facility] Address: [address] [place] [address] Performed By: #### A LLBG ####[facility] LABCLIA [id number] [place] [address] [place] pH adjusted to patient's actual temperature (Bld) 7.38 Normal 7.35-7.45 [facility] Comment on above: Order Comment: Speci men Type: ARTERIAL BLOOD SPECIMENOrdering Facility: [facility] Address: [address] [place] [address] Performed By: #### A LLBG ####[facility] LABCLIA [id number] [place] [address] [place] Potassium [Moles/Vol] 3.9 mmol/L Normal 3.5-5.0 [facility] Comment on above: Order Comment: Speci men Type: ARTERIAL BLOOD SPECIMENOrdering Facility: [facility] Address: [address] [place] [address] Performed By: #### A LLBG ####[facility] LABCLIA [id number] [place] [address] [place] Sodium [Moles/Vol] 137 mmol/L Normal 136-144 [facility] Comment on above: Order Comment: Speci men Type: ARTERIAL BLOOD SPECIMENOrdering Facility: [facility] Address: [address] [place] [address] Performed By: #### A LLBG ####[facility] LABCLIA [id number] [place] [address] [place] Base deficit (BldA) [Moles/Vol] -1 mmol/L Normal -2-0 [facility] Comment on above: Order Comment: Speci men Type: ARTERIAL BLOOD SPECIMENOrdering Facility: [facility] Address: [address] [place] [address] Performed By: #### A LLBG ####[facility] LABCLIA [id number] [place] [address] [place] Body temperature 98.24 [degF] Normal [facility] Comment on above: Order Comment: Speci men Type: ARTERIAL BLOOD SPECIMENOrdering Facility: [facility] Address: [address] [place] [address] Performed By: #### A LLBG ####[facility] [id number] [place] [address] [place] Calcium.ionized (Bld) [Mass/Vol] 1.15 mmol/L Normal 1.08-1.30 [facility] Comment on above: Order Comment: Speci men Type: ARTERIAL BLOOD SPECIMENOrdering Facility: [facility] Address: [address] [place] [address] Performed By: #### A LLBG ####[facility] [id number] [place] [address] [place] Calcium.ionized adjusted to pH 7.4 (BldA) [Moles/Vol] 1.14 mmol/L Normal 1.08-1.30 [facility] Comment on above: Order Comment: Speci men Type: ARTERIAL BLOOD SPECIMENOrdering Facility: [facility] Address: [address] [place] [address] Performed By: #### A LLBG ####[facility] [id number] [place] [address] [place] Carboxyhemoglobin (BldA) [Mass fraction] 1.6 % Normal 0.0-2.0 [facility] Comment on above: Order Comment: Speci men Type: ARTERIAL BLOOD SPECIMENOrdering Facility: [facility] Address: [address] [place] [address] Result Comment: Carb oxyhemoglobin Reference Range for Smokers: 2.0-8.0% Performed By: #### A LLBG ####[facility] [id number] [place] [address] [place] CO2 (Bld) [Partial pressure] 41 mm Hg Normal 36-46 [facility] Comment on above: Order Comment: Speci men Type: ARTERIAL BLOOD SPECIMENOrdering Facility: [facility] Address: [address] [place] [address] Performed By: #### A LLBG ####[facility] LABCLIA [id number] [place] [address] [place] CO2 adjusted to patient's actual temperature (Bld) [Partial pressure] 41 mmHg Normal 36-46 [facility] Comment on above: Order Comment: Speci men Type: ARTERIAL BLOOD SPECIMENOrdering Facility: [facility] Address: [address] [place] [address] Performed By: #### A LLBG ####[facility] LABCLIA [id number] [place] [address] [place] Glucose [Mass/Vol] 176 mg/dL High 60-105 [facility] Comment on above: Order Comment: Speci men Type: ARTERIAL BLOOD SPECIMENOrdering Facility: [facility] Address: [address] [place] [address] Performed By: #### A LLBG ####[facility] LABCLIA [id number] [place] [address] [place] HCO3 (Bld) [Moles/Vol] 24 mmol/L Normal 22-26 [facility] Comment on above: Order Comment: Speci men Type: ARTERIAL BLOOD SPECIMENOrdering Facility: [facility] Address: [address] [place] [address] Performed By: #### A LLBG ####[facility] LABCLIA [id number] [place] [address] [place] Hematocrit (Bld) [Volume fraction] 29.0 % Low 39.0-51.0 [facility] Comment on above: Order Comment: Speci men Type: ARTERIAL BLOOD SPECIMENOrdering Facility: [facility] Address: [address] [place] [address] Performed By: #### A LLBG ####[facility] LABCLIA [id number] [place] [address] [place] Hemoglobin (Bld) [Mass/Vol] 9.4 g/dL Low 13.0-17.0 [facility] Comment on above: Order Comment: Speci men Type: ARTERIAL BLOOD SPECIMENOrdering Facility: [facility] Address: [address] [place] [address] Performed By: #### A LLBG ####[facility] LABCLIA [id number] [place] [address] [place] Lactate [Moles/Vol] 0.7 mmol/L Normal 0.5-2.2 [facility] Comment on above: Order Comment: Speci men Type: ARTERIAL BLOOD SPECIMENOrdering Facility: [facility] Address: [address] [place] [address] Performed By: #### A LLBG ####[facility] LABIA [id number] [place] [address] [place] LITERS 4 Liters/min Normal [facility] Comment on above: Order Comment: Speci men Type: ARTERIAL BLOOD SPECIMENOrdering Facility: [facility] Address: [address] [place] [address] Performed By: #### A LLBG ####[facility] LABIA [id number] [place] [address] [place] Methemoglobin (Bld) [Mass fraction] 0.8 % Normal 0.0-1.5 [facility] Comment on above: Order Comment: Speci men Type: ARTERIAL BLOOD SPECIMENOrdering Facility: [facility] Address: [address] [place] [address] Performed By: #### A LLBG ####[facility] LABCLIA [id number] [place] [address] [place] O2 THERAPY [place] = Nasal Cannula Normal [facility] Comment on above: Order Comment: Speci men Type: ARTERIAL BLOOD SPECIMENOrdering Facility: [facility] Address: [address] [place] [address] Performed By: #### A LLBG ####[facility] LABCLIA [id number] [address] [address] [place] Oxygen (Bld) [Partial pressure] 147 mm Hg High 85-95 [facility] Comment on above: Order Comment: Speci men Type: ARTERIAL BLOOD SPECIMENOrdering Facility: [facility] Address: [address] [place] [address] Performed By: #### A LLBG ####[facility] LABCLIA [id number] [place] [address] [place] Oxygen adjusted to patient's actual temperature (Bld) [Partial pressure] 146 mmHg High 85-95 [facility] Comment on above: Order Comment: Speci men Type: ARTERIAL BLOOD SPECIMENOrdering Facility: [facility] Address: [address] [place] [address] Performed By: #### A LLBG ####[facility] LABCLIA [id number] [place] [address] [place] Oxyhemoglobin (BldA) [Mass fraction] 97 % Normal 95-98 [facility] Comment on above: Order Comment: Speci men Type: ARTERIAL BLOOD SPECIMENOrdering Facility: [facility] Address: [address] [place] [address] Performed By: #### A LLBG ####[facility] LABCLIA [id number] [place] [address] [place] pH (Bld) 7.38 [pH] Normal 7.35-7.45 [facility] Comment on above: Order Comment: Speci men Type: ARTERIAL BLOOD SPECIMENOrdering Facility: [facility] Address: [address] [place] [address] Performed By: #### A LLBG ####[facility] LABCLIA [id number] [place] [address] [place] pH adjusted to patient's actual temperature (Bld) 7.38 Normal 7.35-7.45 [facility] Comment on above: Order Comment: Speci men Type: ARTERIAL BLOOD SPECIMENOrdering Facility: [facility] Address: [address] [place] [address] Performed By: #### A LLBG ####[facility] LABCLIA [id number] [place] [address] [place] Potassium [Moles/Vol] 4.1 mmol/L Normal 3.5-5.0 [facility] Comment on above: Order Comment: Speci men Type: ARTERIAL BLOOD SPECIMENOrdering Facility: [facility] Address: [address] [place] [address] Performed By: #### A LLBG ####[facility] LABIA [id number] [place] [address] [place] Sodium [Moles/Vol] 137 mmol/L Normal 136-144 [facility] Comment on above: Order Comment: Speci men Type: ARTERIAL BLOOD SPECIMENOrdering Facility: [facility] Address: [address] [place] [address] Performed By: #### A LLBG ####[facility] LABCLIA [id number] [place] [address] [place] CASE MGT INIT ASSESon 2022 CASE MGT INIT ASSES Normal [facility] CBC panel Auto (Bld)on 10-29 Erythrocyte distribution width (RBC) [Ratio] 16.8 % High 11.5-15.0 [facility] Comment on above: Order Comment: Speci men Type: BLOOD SPECIMENOrdering Facility: [facility] Address: [address] [place] [address] Performed By: #### 5 8410-2 ####[facility] LABIA [id number] [place] [address] [place] Hematocrit (Bld) [Volume fraction] 30.4 % Low 39.0-51.0 [facility] Comment on above: Order Comment: Speci men Type: BLOOD SPECIMENOrdering Facility: [facility] Address: [address] [place] [address] Performed By: #### 5 8410-2 ####[facility] LABCLIA [id number] [place] [address] [place] Hemoglobin (Bld) [Mass/Vol] 9.5 g/dL Low 13.0-17.0 [facility] Comment on above: Order Comment: Speci men Type: BLOOD SPECIMENOrdering Facility: [facility] Address: [address] [place] [address] Performed By: #### 5 8410-2 ####[facility] LABCLIA [id number] [place] [address] [place] MCH (RBC) [Entitic mass] 26.5 pg Normal 26.0-34.0 [facility] Comment on above: Order Comment: Speci men Type: BLOOD SPECIMENOrdering Facility: [facility] Address: [address] [place] [address] Performed By: #### 5 8410-2 ####[facility] LABIA [id number] [place] [address] [place] MCHC (RBC) [Mass/Vol] 31.3 g/dL Normal 30.5-36.0 [facility] Comment on above: Order Comment: Speci men Type: BLOOD SPECIMENOrdering Facility: [facility] Address: [address] [place] [address] Performed By: #### 5 8410-2 ####[facility] LABIA [id number] [place] [address] [place] MCV (RBC) [Entitic vol] 84.9 fL Normal 80.0-100.0 [facility] Comment on above: Order Comment: Speci men Type: BLOOD SPECIMENOrdering Facility: [facility] Address: [address] [place] [address] Performed By: #### 5 8410-2 ####[facility] LABIA [id number] [place] [address] [place] Nucleated RBC (Bld) [#/Vol] 10*3/uL Normal <0.01 [facility] Comment on above: Order Comment: Speci men Type: BLOOD SPECIMENOrdering Facility: [facility] Address: [address] [place] [address] Performed By: #### 5 8410-2 ####[facility] LABCLIA [id number] [place] [address] [place] Platelet mean volume (Bld) [Entitic vol] 11.7 fL Normal 9.0-12.7 [facility] Comment on above: Order Comment: Speci men Type: BLOOD SPECIMENOrdering Facility: [facility] Address: [address] [place] [address] Performed By: #### 5 8410-2 ####[facility] LABCLIA [id number] [place] [address] [place] Platelets (Bld) [#/Vol] 143 10*3/uL Low 150-400 [facility] Comment on above: Order Comment: Speci men Type: BLOOD SPECIMENOrdering Facility: [facility] Address: [address] [place] [address] Performed By: #### 5 8410-2 ####[facility] LABCLIA [id number] [place] [address] [place] RBC (Bld) [#/Vol] 3.58 10*6/uL Low 4.20-6.00 [facility] Comment on above: Order Comment: Speci men Type: BLOOD SPECIMENOrdering Facility: [facility] Address: [address] [place] [address] Performed By: #### 5 8410-2 ####[facility] LABCLIA [id number] [place] [address] [place] WBC (Bld) [#/Vol] 14.44 10*3/uL High 3.70-11.00 [facility] Comment on above: Order Comment: Speci men Type: BLOOD SPECIMENOrdering Facility: [facility] Address: [address] [place] [address] Performed By: #### 5 8410-2 ####[facility] LABCLIA [id number] [place] [address] [place] Comprehensive metabolic 2000 panelon 10-29-2023 Albumin [Mass/Vol] 3.6 g/dL Low 3.9-4.9 [facility] Comment on above: Order Comment: Speci men Type: BLOOD SPECIMENOrdering Facility: [facility] Address: [address] [place] [address] Performed By: #### H STNT, 10885-6 ####[facility] LABCLIA [id number] [place] [address] [place] ALP [Catalytic activity/Vol] 57 U/L Normal 38-113 [facility] Comment on above: Order Comment: Speci men Type: BLOOD SPECIMENOrdering Facility: [facility] Address: [address] [place] [address] Performed By: #### H STNT, 32746-9 ####[facility] LABIA [id number] [place] [address] [place] ALT [Catalytic activity/Vol] 14 U/L Normal 10-54 [facility] Comment on above: Order Comment: Speci men Type: BLOOD SPECIMENOrdering Facility: [facility] Address: [address] [place] [address] Performed By: #### H STNT, ####[facility] LABCLIA [id number] [place] [address] [place] Anion gap [Moles/Vol] 11 mmol/L Normal 9-18 [facility] Comment on above: Order Comment: Speci men Type: BLOOD SPECIMENOrdering Facility: [facility] Address: [address] [place] [address] Performed By: #### H STNT, ####[facility] LABCLIA [id number] [place] [address] [place] AST [Catalytic activity/Vol] 28 U/L Normal 14-40 [facility] Comment on above: Order Comment: Speci men Type: BLOOD SPECIMENOrdering Facility: [facility] Address: [address] [place] [address] Performed By: #### H STNT, 33270-9 ####[facility] LABCLIA [id number] [place] [address] [place] Bilirubin [Mass/Vol] 0.6 mg/dL Normal 0.2-1.3 [facility] Comment on above: Order Comment: Speci men Type: BLOOD SPECIMENOrdering Facility: [facility] Address: [address] [place] [address] Performed By: #### H STNT, 10526-8 ####[facility] LABCLIA [id number] [place] [address] [place] Calcium [Mass/Vol] 8.3 mg/dL Low 8.5-10.2 [facility] Comment on above: Order Comment: Speci men Type: BLOOD SPECIMENOrdering Facility: [facility] Address: [address] [place] [address] Performed By: #### H STNT, 33944-3 ####[facility] LABCLIA [id number] [place] [address] [place] Chloride [Moles/Vol] 104 mmol/L Normal 97-105 [facility] Comment on above: Order Comment: Speci men Type: BLOOD SPECIMENOrdering Facility: [facility] Address: [address] [place] [address] Performed By: #### H STNT, 98962-2 ####[facility] LABCLIA [id number] [place] [address] [place] CO2 [Moles/Vol] 23 mmol/L Normal 22-30 [facility] Comment on above: Order Comment: Speci men Type: BLOOD SPECIMENOrdering Facility: [facility] Address: [address] [place] [address] Performed By: #### H STNT, 93658-4 ####[facility] LABIA [id number] [place] [address] [place] Creatinine [Mass/Vol] 1.14 mg/dL Normal 0.73-1.22 [facility] Comment on above: Order Comment: Speci men Type: BLOOD SPECIMENOrdering Facility: [facility] Address: [address] [place] [address] Performed By: #### H STNT, ####[facility] LABIA [id number] [place] [address] [place] Creatinine and Glomerular filtration rate.predicted panel (S/P/Bld) 71 mL/min/1.73m??? Normal >=60 [facility] Comment on above: Order Comment: Speci men Type: BLOOD SPECIMENOrdering Facility: [facility] Address: [address] [place] [address] Result Comment: Gisselle mated Glomerular Filtration Rate [...] actual GFR. Performed By: #### H STNT, 42460-7 ####[facility] LABIA [id number] [place] [address] [place] Glucose [Mass/Vol] 172 mg/dL High 74-99 [facility] Comment on above: Order Comment: Speci men Type: BLOOD SPECIMENOrdering Facility: [facility] Address: [address] [place] [address] Result Comment: The [place] [employer] (ADA) provides guidance for cutoff [...] Standards of Medical Care in Diabetes 2016, [place] [employer]. Diabetes Care. 2016.39(Suppl 1). Performed By: #### H STNT, ####[facility] LABCLIA [id number] [place] [address] [place] Potassium [Moles/Vol] 4.2 mmol/L Normal 3.7-5.1 [facility] Comment on above: Order Comment: Speci men Type: BLOOD SPECIMENOrdering Facility: [facility] Address: [address] [place] [address] Performed By: #### H STNT, ####[facility] LABCLIA [id number] [place] [address] [place] Protein [Mass/Vol] 5.0 g/dL Low 6.3-8.0 [facility] Comment on above: Order Comment: Speci men Type: BLOOD SPECIMENOrdering Facility: [facility] Address: [address] [place] [address] Performed By: #### H STNT, ####[facility] LABCLIA [id number] [place] [address] [place] Sodium [Moles/Vol] 138 mmol/L Normal 136-144 [facility] Comment on above: Order Comment: Speci men Type: BLOOD SPECIMENOrdering Facility: [facility] Address: [address] [place] [address] Performed By: #### H STNT, ####[facility] LABCLIA [id number] [place] [address] [place] Urea nitrogen [Mass/Vol] 22 mg/dL Normal 9-24 [facility] Comment on above: Order Comment: Speci men Type: BLOOD SPECIMENOrdering Facility: [facility] Address: [address] [place] [address] Performed By: #### H STNT, 10689-7 ####[facility] [id number] [place] [address] [place] HIGH SENSITIVITY TROPONIN To n 10-29-2023 Troponin T.cardiac High sensitivity method [Mass/Vol] 523 ng/L High <12 [facility] Comment on above: Order Comment: Speci men Type: BLOOD SPECIMENOrdering Facility: [facility] Address: [address] [place] [address] Result Comment: When assessing risk for acute [...] day MACE. Performed By: #### Cordell STNT, 15987-4 ####[facility] [id number] [place] [address] [place] XR ABDOMEN 1V SUPINEon 10-29 XR ABDOMEN 1V SUPINE Normal [facility] XR CHEST 1V FRONTAL PORTon 1 12-30-2022 XR CHEST 1V FRONTAL PORT Normal [facility] ANES POSTPROC EVALon 023 ANES POSTPROC EVAL Normal [facility] ANES PRE-OPon 10-28-2023 ANES PRE-OP Normal [facility] ARTERIAL BLOOD GASESon 10-28 Base deficit (BldA) [Moles/Vol] -1 mmol/L Normal -2-0 [facility] Comment on above: Order Comment: Speci men Type: ARTERIAL BLOOD SPECIMENOrdering Facility: [facility] Address: [address] [place] [address] Performed By: #### A LLBG ####[facility] LABIA [id number] [place] [address] [place] Body temperature 97.88 [degF] Normal [facility] Comment on above: Order Comment: Speci men Type: ARTERIAL BLOOD SPECIMENOrdering Facility: [facility] Address: [address] [place] [address] Performed By: #### A LLBG ####[facility] LABIA [id number] [place] [address] [place] Calcium.ionized (Bld) [Mass/Vol] 1.18 mmol/L Normal 1.08-1.30 [facility] Comment on above: Order Comment: Speci men Type: ARTERIAL BLOOD SPECIMENOrdering Facility: [facility] Address: [address] [place] [address] Performed By: #### A LLBG ####[facility] LABIA [id number] [place] [address] [place] Calcium.ionized adjusted to pH 7.4 (BldA) [Moles/Vol] 1.17 mmol/L Normal 1.08-1.30 [facility] Comment on above: Order Comment: Speci men Type: ARTERIAL BLOOD SPECIMENOrdering Facility: [facility] Address: [address] [place] [address] Performed By: #### A LLBG ####[facility] LABIA [id number] [place] [address] [place] Carboxyhemoglobin (BldA) [Mass fraction] 1.5 % Normal 0.0-2.0 [facility] Comment on above: Order Comment: Speci men Type: ARTERIAL BLOOD SPECIMENOrdering Facility: [facility] Address: [address] [place] [address] Result Comment: Carb oxyhemoglobin Reference Range for Smokers: 2.0-8.0% Performed By: #### A LLBG ####[facility] LABCLIA [id number] [place] [address] [place] CO2 (Bld) [Partial pressure] 43 mm Hg Normal 36-46 [facility] Comment on above: Order Comment: Speci men Type: ARTERIAL BLOOD SPECIMENOrdering Facility: [facility] Address: [address] [place] [address] Performed By: #### A LLBG ####[facility] LABCLIA [id number] [place] [address] [place] CO2 adjusted to patient's actual temperature (Bld) [Partial pressure] 42 mmHg Normal 36-46 [facility] Comment on above: Order Comment: Speci men Type: ARTERIAL BLOOD SPECIMENOrdering Facility: [facility] Address: [address] [place] [address] Performed By: #### A LLBG ####[facility] LABCLIA [id number] [place] [address] [place] FIO2 30 % Normal [facility] Comment on above: Order Comment: Speci men Type: ARTERIAL BLOOD SPECIMENOrdering Facility: [facility] Address: [address] [place] [address] Performed By: #### A LLBG ####[facility] LABCLIA [id number] [place] [address] [place] Glucose [Mass/Vol] 171 mg/dL High 60-105 [facility] Comment on above: Order Comment: Speci men Type: ARTERIAL BLOOD SPECIMENOrdering Facility: [facility] Address: [address] [place] [address] Performed By: #### A LLBG ####[facility] LABCLIA [id number] [place] [address] [place] HCO3 (Bld) [Moles/Vol] 24 mmol/L Normal 22-26 [facility] Comment on above: Order Comment: Speci men Type: ARTERIAL BLOOD SPECIMENOrdering Facility: [facility] Address: [address] [place] [address] Performed By: #### A LLBG ####[facility] LABCLIA [id number] [place] [address] [place] Hematocrit (Bld) [Volume fraction] 29.8 % Low 39.0-51.0 [facility] Comment on above: Order Comment: Speci men Type: ARTERIAL BLOOD SPECIMENOrdering Facility: [facility] Address: [address] [place] [address] Performed By: #### A LLBG ####[facility] LABIA [id number] [place] [address] [place] Hemoglobin (Bld) [Mass/Vol] 9.6 g/dL Low 13.0-17.0 [facility] Comment on above: Order Comment: Speci men Type: ARTERIAL BLOOD SPECIMENOrdering Facility: [facility] Address: [address] [place] [address] Performed By: #### A LLBG ####[facility] LABIA [id number] [place] [address] [place] Lactate [Moles/Vol] 0.9 mmol/L Normal 0.5-2.2 [facility] Comment on above: Order Comment: Speci men Type: ARTERIAL BLOOD SPECIMENOrdering Facility: [facility] Address: [address] [place] [address] Performed By: #### A LLBG ####[facility] LABCLIA [id number] [place] [address] [place] Methemoglobin (Bld) [Mass fraction] 0.9 % Normal 0.0-1.5 [facility] Comment on above: Order Comment: Speci men Type: ARTERIAL BLOOD SPECIMENOrdering Facility: [facility] Address: [address] [place] [address] Performed By: #### A LLBG ####[facility] LABCLIA [id number] [id number] [address] [place] O2 THERAPY Ventilator Normal [facility] Comment on above: Order Comment: Speci men Type: ARTERIAL BLOOD SPECIMENOrdering Facility: [facility] Address: [address] [place] [address] Result Comment: CPAP settings Performed By: #### A LLBG ####[facility] LABCLIA [id number] [place] [address] [place] Oxygen (Bld) [Partial pressure] 121 mm Hg High 85-95 [facility] Comment on above: Order Comment: Speci men Type: ARTERIAL BLOOD SPECIMENOrdering Facility: [facility] Address: [address] [place] [address] Performed By: #### A LLBG ####[facility] LABCLIA [id number] [place] [address] [place] Oxygen adjusted to patient's actual temperature (Bld) [Partial pressure] 119 mmHg High 85-95 [facility] Comment on above: Order Comment: Speci men Type: ARTERIAL BLOOD SPECIMENOrdering Facility: [facility] Address: [address] [place] [address] Performed By: #### A LLBG ####[facility] LABCLIA [id number] [place] [address] [place] Oxyhemoglobin (BldA) [Mass fraction] 96 % Normal 95-98 [facility] Comment on above: Order Comment: Speci men Type: ARTERIAL BLOOD SPECIMENOrdering Facility: [facility] Address: [address] [place] [address] Performed By: #### A LLBG ####[facility] LABCLIA [id number] [place] [address] [place] pH (Bld) 7.37 [pH] Normal 7.35-7.45 [facility] Comment on above: Order Comment: Speci men Type: ARTERIAL BLOOD SPECIMENOrdering Facility: [facility] Address: [address] [place] [address] Performed By: #### A LLBG ####[facility] LABCLIA [id number] [place] [address] [place] pH adjusted to patient's actual temperature (Bld) 7.38 Normal 7.35-7.45 [facility] Comment on above: Order Comment: Speci men Type: ARTERIAL BLOOD SPECIMENOrdering Facility: [facility] Address: [address] [place] [address] Performed By: #### A LLBG ####[facility] LABCLIA [id number] [place] [address] [place] PO2 / FIO2 RATIO 403 mmHg Normal >300 [facility] Comment on above: Order Comment: Speci men Type: ARTERIAL BLOOD SPECIMENOrdering Facility: [facility] Address: [address] [place] [address] Performed By: #### A LLBG ####[facility] LABCLIA [id number] [place] [address] [place] Potassium [Moles/Vol] 4.2 mmol/L Normal 3.5-5.0 [facility] Comment on above: Order Comment: Speci men Type: ARTERIAL BLOOD SPECIMENOrdering Facility: [facility] Address: [address] [place] [address] Performed By: #### A LLBG ####[facility] LABCLIA [id number] [place] [address] [place] Sodium [Moles/Vol] 137 mmol/L Normal 136-144 [facility] Comment on above: Order Comment: Speci men Type: ARTERIAL BLOOD SPECIMENOrdering Facility: [facility] Address: [address] [place] [address] Performed By: #### A LLBG ####[facility] LABCLIA [id number] [place] [address] [place] Base excess Calc (Bld) [Moles/Vol] 1 mmol/L Normal 0-2 [facility] Comment on above: Order Comment: Speci men Type: ARTERIAL BLOOD SPECIMENOrdering Facility: [facility] Address: [address] [place] [address] Performed By: #### A LLBG ####[facility] LABIA [id number] [place] [address] [place] Body temperature 97.7 [degF] Normal [facility] Comment on above: Order Comment: Speci men Type: ARTERIAL BLOOD SPECIMENOrdering Facility: [facility] Address: [address] [place] [address] Performed By: #### A LLBG ####[facility] LABIA [id number] [place] [address] [place] Calcium.ionized (Bld) [Mass/Vol] 1.18 mmol/L Normal 1.08-1.30 [facility] Comment on above: Order Comment: Speci men Type: ARTERIAL BLOOD SPECIMENOrdering Facility: [facility] Address: [address] [place] [address] Performed By: #### A LLBG ####[facility] LABIA [id number] [place] [address] [place] Calcium.ionized adjusted to pH 7.4 (BldA) [Moles/Vol] 1.16 mmol/L Normal 1.08-1.30 [facility] Comment on above: Order Comment: Speci men Type: ARTERIAL BLOOD SPECIMENOrdering Facility: [facility] Address: [address] [place] [address] Performed By: #### A LLBG ####[facility] LABIA [id number] [place] [address] [place] Carboxyhemoglobin (BldA) [Mass fraction] 1.1 % Normal 0.0-2.0 [facility] Comment on above: Order Comment: Speci men Type: ARTERIAL BLOOD SPECIMENOrdering Facility: [facility] Address: [address] [place] [address] Result Comment: Carb oxyhemoglobin Reference Range for Smokers: 2.0-8.0% Performed By: #### A LLBG ####[facility] LABCLIA [id number] [place] [address] [place] CO2 (Bld) [Partial pressure] 47 mm Hg High 36-46 [facility] Comment on above: Order Comment: Speci men Type: ARTERIAL BLOOD SPECIMENOrdering Facility: [facility] Address: [address] [place] [address] Performed By: #### A LLBG ####[facility] LABCLIA [id number] [place] [address] [place] CO2 adjusted to patient's actual temperature (Bld) [Partial pressure] 46 mmHg Normal 36-46 [facility] Comment on above: Order Comment: Speci men Type: ARTERIAL BLOOD SPECIMENOrdering Facility: [facility] Address: [address] [place] [address] Performed By: #### A LLBG ####[facility] LABCLIA [id number] [place] [address] [place] FIO2 40 % Normal [facility] Comment on above: Order Comment: Speci men Type: ARTERIAL BLOOD SPECIMENOrdering Facility: [facility] Address: [address] [place] [address] Performed By: #### A LLBG ####[facility] LABCLIA [id number] [place] [address] [place] Glucose [Mass/Vol] 130 mg/dL High 60-105 [facility] Comment on above: Order Comment: Speci men Type: ARTERIAL BLOOD SPECIMENOrdering Facility: [facility] Address: [address] [place] [address] Performed By: #### A LLBG ####[facility] LABCLIA [id number] [place] [address] [place] HCO3 (Bld) [Moles/Vol] 26 mmol/L Normal 22-26 [facility] Comment on above: Order Comment: Speci men Type: ARTERIAL BLOOD SPECIMENOrdering Facility: [facility] Address: [address] [place] [address] Performed By: #### A LLBG ####[facility] LABIA [id number] [place] [address] [place] Hematocrit (Bld) [Volume fraction] 30.0 % Low 39.0-51.0 [facility] Comment on above: Order Comment: Speci men Type: ARTERIAL BLOOD SPECIMENOrdering Facility: [facility] Address: [address] [place] [address] Performed By: #### A LLBG ####[facility] LABIA [id number] [place] [address] [place] Hemoglobin (Bld) [Mass/Vol] 9.7 g/dL Low 13.0-17.0 [facility] Comment on above: Order Comment: Speci men Type: ARTERIAL BLOOD SPECIMENOrdering Facility: [facility] Address: [address] [place] [address] Performed By: #### A LLBG ####[facility] LABIA [id number] [place] [address] [place] Lactate [Moles/Vol] 0.9 mmol/L Normal 0.5-2.2 [facility] Comment on above: Order Comment: Speci men Type: ARTERIAL BLOOD SPECIMENOrdering Facility: [facility] Address: [address] [place] [address] Performed By: #### A LLBG ####[facility] LABIA [id number] [place] [address] [place] Methemoglobin (Bld) [Mass fraction] 1.2 % Normal 0.0-1.5 [facility] Comment on above: Order Comment: Speci men Type: ARTERIAL BLOOD SPECIMENOrdering Facility: [facility] Address: [address] [place] [address] Performed By: #### A LLBG ####[facility] LABCLIA [id number] [address] [address] [place] O2 THERAPY Ventilator Normal [facility] Comment on above: Order Comment: Speci men Type: ARTERIAL BLOOD SPECIMENOrdering Facility: [facility] Address: [address] [place] [address] Performed By: #### A LLBG ####[facility] LABCLIA [id number] [place] [address] [place] Oxygen (Bld) [Partial pressure] 140 mm Hg High 85-95 [facility] Comment on above: Order Comment: Speci men Type: ARTERIAL BLOOD SPECIMENOrdering Facility: [facility] Address: [address] [place] [address] Performed By: #### A LLBG ####[facility] LABCLIA [id number] [place] [address] [place] Oxygen adjusted to patient's actual temperature (Bld) [Partial pressure] 137 mmHg High 85-95 [facility] Comment on above: Order Comment: Speci men Type: ARTERIAL BLOOD SPECIMENOrdering Facility: [facility] Address: [address] [place] [address] Performed By: #### A LLBG ####[facility] LABCLIA [id number] [place] [id number] [place] Oxyhemoglobin (BldA) [Mass fraction] 96 % Normal 95-98 [facility] Comment on above: Order Comment: Speci men Type: ARTERIAL BLOOD SPECIMENOrdering Facility: [facility] Address: [address] [place] [address] Performed By: #### A LLBG ####[facility] LABCLIA [id number] [place] [address] [place] pH (Bld) 7.36 [pH] Normal 7.35-7.45 [facility] Comment on above: Order Comment: Speci men Type: ARTERIAL BLOOD SPECIMENOrdering Facility: [facility] Address: [address] [place] [address] Performed By: #### A LLBG ####[facility] LABCLIA [id number] [place] [address] [place] pH adjusted to patient's actual temperature (Bld) 7.37 Normal 7.35-7.45 [facility] Comment on above: Order Comment: Speci men Type: ARTERIAL BLOOD SPECIMENOrdering Facility: [facility] Address: [address] [place] [address] Performed By: #### A LLBG ####[facility] LABCLIA [id number] [place] [address] [place] PO2 / FIO2 RATIO 350 mmHg Normal >300 [facility] Comment on above: Order Comment: Speci men Type: ARTERIAL BLOOD SPECIMENOrdering Facility: [facility] Address: [address] [place] [address] Performed By: #### A LLBG ####[facility] LABCLIA [id number] [place] [address] [place] Potassium [Moles/Vol] 4.3 mmol/L Normal 3.5-5.0 [facility] Comment on above: Order Comment: Speci men Type: ARTERIAL BLOOD SPECIMENOrdering Facility: [facility] Address: [address] [place] [address] Performed By: #### A LLBG ####[facility] LABCLIA [id number] [place] [address] [place] Sodium [Moles/Vol] 139 mmol/L Normal 136-144 [facility] Comment on above: Order Comment: Speci men Type: ARTERIAL BLOOD SPECIMENOrdering Facility: [facility] Address: [address] [place] [address] Performed By: #### A LLBG ####[facility] LABCLIA [id number] [place] [address] [place] Base excess Calc (Bld) [Moles/Vol] 1 mmol/L Normal 0-2 [facility] Comment on above: Order Comment: Speci men Type: ARTERIAL BLOOD SPECIMENOrdering Facility: [facility] Address: [address] [place] [address] Performed By: #### A LLBG ####[facility] LABIA [id number] [place] [address] [place] Body temperature 97.52 [degF] Normal [facility] Comment on above: Order Comment: Speci men Type: ARTERIAL BLOOD SPECIMENOrdering Facility: [facility] Address: [address] [place] [address] Performed By: #### A LLBG ####[facility] LABIA [id number] [place] [address] [place] Calcium.ionized (Bld) [Mass/Vol] 1.16 mmol/L Normal 1.08-1.30 [facility] Comment on above: Order Comment: Speci men Type: ARTERIAL BLOOD SPECIMENOrdering Facility: [facility] Address: [address] [place] [address] Performed By: #### A LLBG ####[facility] [id number] [place] [address] [place] Calcium.ionized adjusted to pH 7.4 (BldA) [Moles/Vol] 1.14 mmol/L Normal 1.08-1.30 [facility] Comment on above: Order Comment: Speci men Type: ARTERIAL BLOOD SPECIMENOrdering Facility: [facility] Address: [address] [place] [address] Performed By: #### A LLBG ####[facility] LABIA [id number] [place] [address] [place] Carboxyhemoglobin (BldA) [Mass fraction] 1.4 % Normal 0.0-2.0 [facility] Comment on above: Order Comment: Speci men Type: ARTERIAL BLOOD SPECIMENOrdering Facility: [facility] Address: [address] [place] [address] Result Comment: Carb oxyhemoglobin Reference Range for Smokers: 2.0-8.0% Performed By: #### A LLBG ####[facility] LABCLIA [id number] [place] [address] [place] CO2 (Bld) [Partial pressure] 48 mm Hg High 36-46 [facility] Comment on above: Order Comment: Speci men Type: ARTERIAL BLOOD SPECIMENOrdering Facility: [facility] Address: [address] [place] [address] Performed By: #### A LLBG ####[facility] LABCLIA [id number] [place] [address] [place] CO2 adjusted to patient's actual temperature (Bld) [Partial pressure] 46 mmHg Normal 36-46 [facility] Comment on above: Order Comment: Speci men Type: ARTERIAL BLOOD SPECIMENOrdering Facility: [facility] Address: [address] [place] [address] Performed By: #### A LLBG ####[facility] LABCLIA [id number] [place] [address] [place] Glucose [Mass/Vol] 138 mg/dL High 60-105 [facility] Comment on above: Order Comment: Speci men Type: ARTERIAL BLOOD SPECIMENOrdering Facility: [facility] Address: [address] [place] [address] Performed By: #### A LLBG ####[facility] LABCLIA [id number] [place] [address] [place] HCO3 (Bld) [Moles/Vol] 27 mmol/L High 22-26 [facility] Comment on above: Order Comment: Speci men Type: ARTERIAL BLOOD SPECIMENOrdering Facility: [facility] Address: [address] [place] [address] Performed By: #### A LLBG ####[facility] LABIA [id number] [place] [id number] [place] Hematocrit (Bld) [Volume fraction] 28.8 % Low 39.0-51.0 [facility] Comment on above: Order Comment: Speci men Type: ARTERIAL BLOOD SPECIMENOrdering Facility: [facility] Address: [address] [place] [address] Performed By: #### A LLBG ####[facility] LABCLIA [id number] [place] [address] [place] Hemoglobin (Bld) [Mass/Vol] 9.3 g/dL Low 13.0-17.0 [facility] Comment on above: Order Comment: Speci men Type: ARTERIAL BLOOD SPECIMENOrdering Facility: [facility] Address: [address] [place] [address] Performed By: #### A LLBG ####[facility] LABCLIA [id number] [place] [address] [place] Lactate [Moles/Vol] 1.4 mmol/L Normal 0.5-2.2 [facility] Comment on above: Order Comment: Speci men Type: ARTERIAL BLOOD SPECIMENOrdering Facility: [facility] Address: [address] [place] [address] Performed By: #### A LLBG ####[facility] LABCLIA [id number] [place] [address] [place] LITERS 40 Liters/min Normal [facility] Comment on above: Order Comment: Speci men Type: ARTERIAL BLOOD SPECIMENOrdering Facility: [facility] Address: [address] [place] [address] Performed By: #### A LLBG ####[facility] LABCLIA [id number] [place] [address] [place] Methemoglobin (Bld) [Mass fraction] 1.3 % Normal 0.0-1.5 [facility] Comment on above: Order Comment: Speci men Type: ARTERIAL BLOOD SPECIMENOrdering Facility: [facility] Address: [address] [place] [address] Performed By: #### A LLBG ####[facility] LABCLIA [id number] [place] [address] [place] O2 THERAPY Ventilator Normal [facility] Comment on above: Order Comment: Speci men Type: ARTERIAL BLOOD SPECIMENOrdering Facility: [facility] Address: [address] [place] [address] Performed By: #### A LLBG ####[facility] LABCLIA [id number] [place] [id number] [place] Oxygen (Bld) [Partial pressure] 95 mm Hg Normal 85-95 [facility] Comment on above: Order Comment: Speci men Type: ARTERIAL BLOOD SPECIMENOrdering Facility: [facility] Address: [address] [place] [address] Performed By: #### A LLBG ####[facility] LABCLIA [id number] [place] [address] [place] Oxygen adjusted to patient's actual temperature (Bld) [Partial pressure] 92 mmHg Normal 85-95 [facility] Comment on above: Order Comment: Speci men Type: ARTERIAL BLOOD SPECIMENOrdering Facility: [facility] Address: [address] [place] [address] Performed By: #### A LLBG ####[facility] LABCLIA [id number] [place] [id number] [place] Oxyhemoglobin (BldA) [Mass fraction] 95 % Normal 95-98 [facility] Comment on above: Order Comment: Speci men Type: ARTERIAL BLOOD SPECIMENOrdering Facility: [facility] Address: [address] [place] [address] Performed By: #### A LLBG ####[facility] LABCLIA [id number] [address] [address] [place] pH (Bld) 7.36 [pH] Normal 7.35-7.45 [facility] Comment on above: Order Comment: Speci men Type: ARTERIAL BLOOD SPECIMENOrdering Facility: [facility] Address: [address] [place] [address] Performed By: #### A LLBG ####[facility] LABCLIA [id number] [place] [address] [place] pH adjusted to patient's actual temperature (Bld) 7.37 Normal 7.35-7.45 [facility] Comment on above: Order Comment: Speci men Type: ARTERIAL BLOOD SPECIMENOrdering Facility: [facility] Address: [address] [place] [address] Performed By: #### A LLBG ####[facility] LABCLIA [id number] [place] [address] [place] Potassium [Moles/Vol] 3.5 mmol/L Normal 3.5-5.0 [facility] Comment on above: Order Comment: Speci men Type: ARTERIAL BLOOD SPECIMENOrdering Facility: [facility] Address: [address] [place] [address] Performed By: #### A LLBG ####[facility] LABCLIA [id number] [place] [address] [place] Sodium [Moles/Vol] 138 mmol/L Normal 136-144 [facility] Comment on above: Order Comment: Speci men Type: ARTERIAL BLOOD SPECIMENOrdering Facility: [facility] Address: [address] [place] [address] Performed By: #### A LLBG ####[facility] LABCLIA [id number] [place] [address] [place] Base excess Calc (Bld) [Moles/Vol] 2 mmol/L Normal 0-2 [facility] Comment on above: Order Comment: Speci men Type: ARTERIAL BLOOD SPECIMENOrdering Facility: [facility] Address: [address] [place] [address] Performed By: #### A LLBG ####[facility] LABCLIA [id number] [place] [address] [place] Calcium.ionized (Bld) [Mass/Vol] 1.13 mmol/L Normal 1.08-1.30 [facility] Comment on above: Order Comment: Speci men Type: ARTERIAL BLOOD SPECIMENOrdering Facility: [facility] Address: [address] [place] [address] Performed By: #### A LLBG ####[facility]ITAL[facility] [id number] [place] [address] [place] Calcium.ionized adjusted to pH 7.4 (BldA) [Moles/Vol] 1.12 mmol/L Normal 1.08-1.30 [facility] Comment on above: Order Comment: Speci men Type: ARTERIAL BLOOD SPECIMENOrdering Facility: [facility] Address: [address] [place] [address] Performed By: #### A LLBG ####[facility] [id number] [place] [address] [place] Carboxyhemoglobin (BldA) [Mass fraction] 2.1 % High 0.0-2.0 [facility] Comment on above: Order Comment: Speci men Type: ARTERIAL BLOOD SPECIMENOrdering Facility: [facility] Address: [address] [place] [address] Result Comment: Carb oxyhemoglobin Reference Range for Smokers: 2.0-8.0% Performed By: #### A LLBG ####[facility] LABR[facility] [id number] [place] [address] [place] CO2 (Bld) [Partial pressure] 44 mm Hg Normal 36-46 [facility] Comment on above: Order Comment: Speci men Type: ARTERIAL BLOOD SPECIMENOrdering Facility: [facility] Address: [address] [place] [address] Performed By: #### A LLBG ####[facility] LABROCKING[facility] [id number] [address] [place] CO2 adjusted to patient's actual temperature (Bld) [Partial pressure] 44 mmHg Normal 36-46 [facility] Comment on above: Order Comment: Speci men Type: ARTERIAL BLOOD SPECIMENOrdering Facility: [facility] Address: [address] [place] [address] Performed By: #### A LLBG ####[facility] LABCLIA [id number] [place] [address] [place] Glucose [Mass/Vol] 175 mg/dL High 60-105 [facility] Comment on above: Order Comment: Speci men Type: ARTERIAL BLOOD SPECIMENOrdering Facility: [facility] Address: [address] [place] [address] Performed By: #### A LLBG ####[facility] LABCLIA [id number] [place] [address] [place] HCO3 (Bld) [Moles/Vol] 26 mmol/L Normal 22-26 [facility] Comment on above: Order Comment: Speci men Type: ARTERIAL BLOOD SPECIMENOrdering Facility: [facility] Address: [address] [place] [address] Performed By: #### A LLBG ####[facility] LABCLIA [id number] [place] [address] [place] Hematocrit (Bld) [Volume fraction] 26.8 % Low 39.0-51.0 [facility] Comment on above: Order Comment: Speci men Type: ARTERIAL BLOOD SPECIMENOrdering Facility: [facility] Address: [address] [place] [address] Performed By: #### A LLBG ####[facility] LABCLIA [id number] [place] [address] [place] Hemoglobin (Bld) [Mass/Vol] 8.6 g/dL Low 13.0-17.0 [facility] Comment on above: Order Comment: Speci men Type: ARTERIAL BLOOD SPECIMENOrdering Facility: [facility] Address: [address] [place] [address] Performed By: #### A LLBG ####[facility] LABCLIA [id number] [place] [address] [place] Lactate [Moles/Vol] 1.4 mmol/L Normal 0.5-2.2 [facility] Comment on above: Order Comment: Speci men Type: ARTERIAL BLOOD SPECIMENOrdering Facility: [facility] Address: [address] [place] [address] Performed By: #### A LLBG ####[facility] LABCLIA [id number] [place] [address] [place] Methemoglobin (Bld) [Mass fraction] 1.5 % Normal 0.0-1.5 [facility] Comment on above: Order Comment: Speci men Type: ARTERIAL BLOOD SPECIMENOrdering Facility: [facility] Address: [address] [place] [address] Performed By: #### A LLBG ####[facility] LABCLIA [id number] [place] [address] [place] Oxygen (Bld) [Partial pressure] 219 mm Hg High 85-95 [facility] Comment on above: Order Comment: Speci men Type: ARTERIAL BLOOD SPECIMENOrdering Facility: [facility] Address: [address] [place] [address] Performed By: #### A LLBG ####[facility] LABCLIA [id number] [place] [address] [place] Oxygen adjusted to patient's actual temperature (Bld) [Partial pressure] 219 mmHg High 85-95 [facility] Comment on above: Order Comment: Speci men Type: ARTERIAL BLOOD SPECIMENOrdering Facility: [facility] Address: [address] [place] [address] Performed By: #### A LLBG ####[facility] LABCLIA [id number] [id number] [address] [place] Oxyhemoglobin (BldA) [Mass fraction] 96 % Normal 95-98 [facility] Comment on above: Order Comment: Speci men Type: ARTERIAL BLOOD SPECIMENOrdering Facility: [facility] Address: [address] [place] [address] Performed By: #### A LLBG ####[facility] LABCLIA [id number] [place] [address] [place] pH (Bld) 7.39 [pH] Normal 7.35-7.45 [facility] Comment on above: Order Comment: Speci men Type: ARTERIAL BLOOD SPECIMENOrdering Facility: [facility] Address: [address] [place] [address] Performed By: #### A LLBG ####[facility] LABCLIA [id number] [place] [address] [place] pH adjusted to patient's actual temperature (Bld) 7.39 Normal 7.35-7.45 [facility] Comment on above: Order Comment: Speci men Type: ARTERIAL BLOOD SPECIMENOrdering Facility: [facility] Address: [address] [place] [address] Performed By: #### A LLBG ####[facility] LABCLIA [id number] [place] [address] [place] Potassium [Moles/Vol] 4.0 mmol/L Normal 3.5-5.0 [facility] Comment on above: Order Comment: Speci men Type: ARTERIAL BLOOD SPECIMENOrdering Facility: [facility] Address: [address] [place] [address] Performed By: #### A LLBG ####[facility] LABCLIA [id number] [place] [address] [place] Sodium [Moles/Vol] 137 mmol/L Normal 136-144 [facility] Comment on above: Order Comment: Speci men Type: ARTERIAL BLOOD SPECIMENOrdering Facility: [facility] Address: [address] [place] [address] Performed By: #### A LLBG ####[facility] LABCLIA [id number] [place] [address] [place] Base excess Calc (Bld) [Moles/Vol] 1 mmol/L Normal 0-2 [facility] Comment on above: Order Comment: Speci men Type: ARTERIAL BLOOD SPECIMENOrdering Facility: [facility] Address: [address] [place] [address] Performed By: #### A LLBG ####[facility] LABIA [id number] [place] [address] [place] Calcium.ionized (Bld) [Mass/Vol] 1.14 mmol/L Normal 1.08-1.30 [facility] Comment on above: Order Comment: Speci men Type: ARTERIAL BLOOD SPECIMENOrdering Facility: [facility] Address: [address] [place] [address] Performed By: #### A LLBG ####[facility] LABIA [id number] [place] [address] [place] Calcium.ionized adjusted to pH 7.4 (BldA) [Moles/Vol] 1.14 mmol/L Normal 1.08-1.30 [facility] Comment on above: Order Comment: Speci men Type: ARTERIAL BLOOD SPECIMENOrdering Facility: [facility] Address: [address] [place] [address] Performed By: #### A LLBG ####[facility] LABIA [id number] [place] [address] [place] Carboxyhemoglobin (BldA) [Mass fraction] 1.5 % Normal 0.0-2.0 [facility] Comment on above: Order Comment: Speci men Type: ARTERIAL BLOOD SPECIMENOrdering Facility: [facility] Address: [address] [place] [address] Result Comment: Carb oxyhemoglobin Reference Range for Smokers: 2.0-8.0% Performed By: #### A LLBG ####[facility] LABCLIA [id number] [place] [address] [place] CO2 (Bld) [Partial pressure] 42 mm Hg Normal 36-46 [facility] Comment on above: Order Comment: Speci men Type: ARTERIAL BLOOD SPECIMENOrdering Facility: [facility] Address: [address] [place] [address] Performed By: #### A LLBG ####[facility] LABCLIA [id number] [place] [address] [place] CO2 adjusted to patient's actual temperature (Bld) [Partial pressure] 42 mmHg Normal 36-46 [facility] Comment on above: Order Comment: Speci men Type: ARTERIAL BLOOD SPECIMENOrdering Facility: [facility] Address: [address] [place] [address] Performed By: #### A LLBG ####[facility] LABCLIA [id number] [place] [address] [place] Glucose [Mass/Vol] 209 mg/dL High 60-105 [facility] Comment on above: Order Comment: Speci men Type: ARTERIAL BLOOD SPECIMENOrdering Facility: [facility] Address: [address] [place] [address] Performed By: #### A LLBG ####[facility] LABCLIA [id number] [place] [address] [place] HCO3 (Bld) [Moles/Vol] 25 mmol/L Normal 22-26 [facility] Comment on above: Order Comment: Speci men Type: ARTERIAL BLOOD SPECIMENOrdering Facility: [facility] Address: [address] [place] [address] Performed By: #### A LLBG ####[facility] LABCLIA [id number] [place] [address] [place] Hematocrit (Bld) [Volume fraction] 27.8 % Low 39.0-51.0 [facility] Comment on above: Order Comment: Speci men Type: ARTERIAL BLOOD SPECIMENOrdering Facility: [facility] Address: [address] [place] [address] Performed By: #### A LLBG ####[facility] LABIA [id number] [place] [address] [place] Hemoglobin (Bld) [Mass/Vol] 9.0 g/dL Low 13.0-17.0 [facility] Comment on above: Order Comment: Speci men Type: ARTERIAL BLOOD SPECIMENOrdering Facility: [facility] Address: [address] [place] [address] Performed By: #### A LLBG ####[facility] LABIA [id number] [place] [address] [place] Lactate [Moles/Vol] 1.2 mmol/L Normal 0.5-2.2 [facility] Comment on above: Order Comment: Speci men Type: ARTERIAL BLOOD SPECIMENOrdering Facility: [facility] Address: [address] [place] [address] Performed By: #### A LLBG ####[facility] LABIA [id number] [place] [address] [place] Methemoglobin (Bld) [Mass fraction] 1.1 % Normal 0.0-1.5 [facility] Comment on above: Order Comment: Speci men Type: ARTERIAL BLOOD SPECIMENOrdering Facility: [facility] Address: [address] [place] [address] Performed By: #### A LLBG ####[facility] LABCLIA [id number] [place] [address] [place] Oxygen (Bld) [Partial pressure] 173 mm Hg High 85-95 [facility] Comment on above: Order Comment: Speci men Type: ARTERIAL BLOOD SPECIMENOrdering Facility: [facility] Address: [address] [place] [address] Performed By: #### A LLBG ####[facility] LABCLIA [id number] [place] [address] [place] Oxygen adjusted to patient's actual temperature (Bld) [Partial pressure] 173 mmHg High 85-95 [facility] Comment on above: Order Comment: Speci men Type: ARTERIAL BLOOD SPECIMENOrdering Facility: [facility] Address: [address] [place] [address] Performed By: #### A LLBG ####[facility] LABCLIA [id number] [place] [address] [place] Oxyhemoglobin (BldA) [Mass fraction] 97 % Normal 95-98 [facility] Comment on above: Order Comment: Speci men Type: ARTERIAL BLOOD SPECIMENOrdering Facility: [facility] Address: [address] [place] [address] Performed By: #### A LLBG ####[facility] LABCLIA [id number] [place] [address] [place] pH (Bld) 7.39 [pH] Normal 7.35-7.45 [facility] Comment on above: Order Comment: Speci men Type: ARTERIAL BLOOD SPECIMENOrdering Facility: [facility] Address: [address] [place] [address] Performed By: #### A LLBG ####[facility] LABCLIA [id number] [place] [address] [place] pH adjusted to patient's actual temperature (Bld) 7.39 Normal 7.35-7.45 [facility] Comment on above: Order Comment: Speci men Type: ARTERIAL BLOOD SPECIMENOrdering Facility: [facility] Address: [address] [place] [address] Performed By: #### A LLBG ####[facility] LABCLIA [id number] [place] [address] [place] Potassium [Moles/Vol] 3.7 mmol/L Normal 3.5-5.0 [facility] Comment on above: Order Comment: Speci men Type: ARTERIAL BLOOD SPECIMENOrdering Facility: [facility] Address: [address] [place] [address] Performed By: #### A LLBG ####[facility] LABCLIA [id number] [place] [address] [place] Sodium [Moles/Vol] 135 mmol/L Low 136-144 [facility] Comment on above: Order Comment: Speci men Type: ARTERIAL BLOOD SPECIMENOrdering Facility: [facility] Address: [address] [place] [address] Performed By: #### A LLBG ####[facility] LABCLIA [id number] [place] [address] [place] Base excess Calc (Bld) [Moles/Vol] 2 mmol/L Normal 0-2 [facility] Comment on above: Order Comment: Speci men Type: ARTERIAL BLOOD SPECIMENOrdering Facility: [facility] Address: [address] [place] [address] Performed By: #### A LLBG ####[facility] LABCLIA [id number] [place] [address] [place] Calcium.ionized (Bld) [Mass/Vol] 1.11 mmol/L Normal 1.08-1.30 [facility] Comment on above: Order Comment: Speci men Type: ARTERIAL BLOOD SPECIMENOrdering Facility: [facility] Address: [address] [place] [address] Performed By: #### A LLBG ####[facility] LABCLIA [id number] [place] [address] [place] Calcium.ionized adjusted to pH 7.4 (BldA) [Moles/Vol] 1.11 mmol/L Normal 1.08-1.30 [facility] Comment on above: Order Comment: Speci men Type: ARTERIAL BLOOD SPECIMENOrdering Facility: [facility] Address: [address] [place] [address] Performed By: #### A LLBG ####[facility] LABCLIA [id number] [place] [address] [place] Carboxyhemoglobin (BldA) [Mass fraction] 1.8 % Normal 0.0-2.0 [facility] Comment on above: Order Comment: Speci men Type: ARTERIAL BLOOD SPECIMENOrdering Facility: [facility] Address: [address] [place] [address] Result Comment: Carb oxyhemoglobin Reference Range for Smokers: 2.0-8.0% Performed By: #### A LLBG ####[facility] LABCLIA [id number] [place] [address] [place] CO2 (Bld) [Partial pressure] 42 mm Hg Normal 36-46 [facility] Comment on above: Order Comment: Speci men Type: ARTERIAL BLOOD SPECIMENOrdering Facility: [facility] Address: [address] [place] [address] Performed By: #### A LLBG ####[facility] LABIA [id number] [place] [address] [place] CO2 adjusted to patient's actual temperature (Bld) [Partial pressure] 42 mmHg Normal 36-46 [facility] Comment on above: Order Comment: Speci men Type: ARTERIAL BLOOD SPECIMENOrdering Facility: [facility] Address: [address] [place] [address] Performed By: #### A LLBG ####[facility] LABIA [id number] [place] [address] [place] Glucose [Mass/Vol] 227 mg/dL High 60-105 [facility] Comment on above: Order Comment: Speci men Type: ARTERIAL BLOOD SPECIMENOrdering Facility: [facility] Address: [address] [place] [address] Performed By: #### A LLBG ####[facility] LABIA [id number] [place] [address] [place] HCO3 (Bld) [Moles/Vol] 26 mmol/L Normal 22-26 [facility] Comment on above: Order Comment: Speci men Type: ARTERIAL BLOOD SPECIMENOrdering Facility: [facility] Address: [address] [place] [address] Performed By: #### A LLBG ####[facility] LABCLIA [id number] [place] [address] [place] Hematocrit (Bld) [Volume fraction] 26.9 % Low 39.0-51.0 [facility] Comment on above: Order Comment: Speci men Type: ARTERIAL BLOOD SPECIMENOrdering Facility: [facility] Address: [address] [place] [address] Performed By: #### A LLBG ####[facility] LABCLIA [id number] [place] [address] [place] Hemoglobin (Bld) [Mass/Vol] 8.7 g/dL Low 13.0-17.0 [facility] Comment on above: Order Comment: Speci men Type: ARTERIAL BLOOD SPECIMENOrdering Facility: [facility] Address: [address] [place] [address] Performed By: #### A LLBG ####[facility] LABIA [id number] [place] [address] [place] Lactate [Moles/Vol] 0.9 mmol/L Normal 0.5-2.2 [facility] Comment on above: Order Comment: Speci men Type: ARTERIAL BLOOD SPECIMENOrdering Facility: [facility] Address: [address] [place] [address] Performed By: #### A LLBG ####[facility] LABCLIA [id number] [place] [address] [place] Methemoglobin (Bld) [Mass fraction] 0.5 % Normal 0.0-1.5 [facility] Comment on above: Order Comment: Speci men Type: ARTERIAL BLOOD SPECIMENOrdering Facility: [facility] Address: [address] [place] [address] Performed By: #### A LLBG ####[facility] LABCLIA [id number] [address] [address] [place] Oxygen (Bld) [Partial pressure] 292 mm Hg High 85-95 [facility] Comment on above: Order Comment: Speci men Type: ARTERIAL BLOOD SPECIMENOrdering Facility: [facility] Address: [address] [place] [address] Performed By: #### A LLBG ####[facility] LABCLIA [id number] [address] [address] [place] Oxygen adjusted to patient's actual temperature (Bld) [Partial pressure] 292 mmHg High 85-95 [facility] Comment on above: Order Comment: Speci men Type: ARTERIAL BLOOD SPECIMENOrdering Facility: [facility] Address: [address] [place] [address] Performed By: #### A LLBG ####[facility] LABCLIA [id number] [place] [address] [place] Oxyhemoglobin (BldA) [Mass fraction] 98 % Normal 95-98 [facility] Comment on above: Order Comment: Speci men Type: ARTERIAL BLOOD SPECIMENOrdering Facility: [facility] Address: [address] [place] [address] Performed By: #### A LLBG ####[facility] LABCLIA [id number] [place] [address] [place] pH (Bld) 7.40 [pH] Normal 7.35-7.45 [facility] Comment on above: Order Comment: Speci men Type: ARTERIAL BLOOD SPECIMENOrdering Facility: [facility] Address: [address] [place] [address] Performed By: #### A LLBG ####[facility] LABCLIA [id number] [place] [id number] [place] pH adjusted to patient's actual temperature (Bld) 7.40 Normal 7.35-7.45 [facility] Comment on above: Order Comment: Speci men Type: ARTERIAL BLOOD SPECIMENOrdering Facility: [facility] Address: [address] [place] [address] Performed By: #### A LLBG ####[facility] LABIA [id number] [place] [address] [place] Potassium [Moles/Vol] 4.4 mmol/L Normal 3.5-5.0 [facility] Comment on above: Order Comment: Speci men Type: ARTERIAL BLOOD SPECIMENOrdering Facility: [facility] Address: [address] [place] [address] Performed By: #### A LLBG ####[facility] LABIA [id number] [place] [address] [place] Sodium [Moles/Vol] 135 mmol/L Low 136-144 [facility] Comment on above: Order Comment: Speci men Type: ARTERIAL BLOOD SPECIMENOrdering Facility: [facility] Address: [address] [place] [address] Performed By: #### A LLBG ####[facility] LABIA [id number] [place] [address] [place] Base excess Calc (Bld) [Moles/Vol] 1 mmol/L Normal 0-2 [facility] Comment on above: Order Comment: Speci men Type: ARTERIAL BLOOD SPECIMENOrdering Facility: [facility] Address: [address] [place] [address] Performed By: #### A LLBG ####[facility] LABIA [id number] [place] [address] [place] Calcium.ionized (Bld) [Mass/Vol] 1.15 mmol/L Normal 1.08-1.30 [facility] Comment on above: Order Comment: Speci men Type: ARTERIAL BLOOD SPECIMENOrdering Facility: [facility] Address: [address] [place] [address] Performed By: #### A LLBG ####[facility] LABCLIA [id number] [place] [address] [place] Calcium.ionized adjusted to pH 7.4 (BldA) [Moles/Vol] 1.15 mmol/L Normal 1.08-1.30 [facility] Comment on above: Order Comment: Speci men Type: ARTERIAL BLOOD SPECIMENOrdering Facility: [facility] Address: [address] [place] [address] Performed By: #### A LLBG ####[facility] LABIA [id number] [place] [address] [place] Carboxyhemoglobin (BldA) [Mass fraction] 1.3 % Normal 0.0-2.0 [facility] Comment on above: Order Comment: Speci men Type: ARTERIAL BLOOD SPECIMENOrdering Facility: [facility] Address: [address] [place] [address] Result Comment: Carb oxyhemoglobin Reference Range for Smokers: 2.0-8.0% Performed By: #### A LLBG ####[facility] LABIA [id number] [place] [address] [place] CO2 (Bld) [Partial pressure] 42 mm Hg Normal 36-46 [facility] Comment on above: Order Comment: Speci men Type: ARTERIAL BLOOD SPECIMENOrdering Facility: [facility] Address: [address] [place] [address] Performed By: #### A LLBG ####[facility] LABIA [id number] [place] [address] [place] CO2 adjusted to patient's actual temperature (Bld) [Partial pressure] 42 mmHg Normal 36-46 [facility] Comment on above: Order Comment: Speci men Type: ARTERIAL BLOOD SPECIMENOrdering Facility: [facility] Address: [address] [place] [address] Performed By: #### A LLBG ####[facility] LABIA [id number] [place] [address] [place] Glucose [Mass/Vol] 164 mg/dL High 60-105 [facility] Comment on above: Order Comment: Speci men Type: ARTERIAL BLOOD SPECIMENOrdering Facility: [facility] Address: [address] [place] [address] Performed By: #### A LLBG ####[facility] LABCLIA [id number] [place] [address] [place] HCO3 (Bld) [Moles/Vol] 26 mmol/L Normal 22-26 [facility] Comment on above: Order Comment: Speci men Type: ARTERIAL BLOOD SPECIMENOrdering Facility: [facility] Address: [address] [place] [address] Performed By: #### A LLBG ####[facility] LABCLIA [id number] [place] [address] [place] Hematocrit (Bld) [Volume fraction] 29.0 % Low 39.0-51.0 [facility] Comment on above: Order Comment: Speci men Type: ARTERIAL BLOOD SPECIMENOrdering Facility: [facility] Address: [address] [place] [address] Performed By: #### A LLBG ####[facility] LABCLIA [id number] [place] [address] [place] Hemoglobin (Bld) [Mass/Vol] 9.3 g/dL Low 13.0-17.0 [facility] Comment on above: Order Comment: Speci men Type: ARTERIAL BLOOD SPECIMENOrdering Facility: [facility] Address: [address] [place] [address] Performed By: #### A LLBG ####[facility] LABCLIA [id number] [place] [address] [place] Lactate [Moles/Vol] 1.0 mmol/L Normal 0.5-2.2 [facility] Comment on above: Order Comment: Speci men Type: ARTERIAL BLOOD SPECIMENOrdering Facility: [facility] Address: [address] [place] [address] Performed By: #### A LLBG ####[facility] LABCLIA [id number] [place] [address] [place] Methemoglobin (Bld) [Mass fraction] 1.2 % Normal 0.0-1.5 [facility] Comment on above: Order Comment: Speci men Type: ARTERIAL BLOOD SPECIMENOrdering Facility: [facility] Address: [address] [place] [address] Performed By: #### A LLBG ####[facility] LABCLIA [id number] [place] [address] [place] Oxygen (Bld) [Partial pressure] 327 mm Hg High 85-95 [facility] Comment on above: Order Comment: Speci men Type: ARTERIAL BLOOD SPECIMENOrdering Facility: [facility] Address: [address] [place] [address] Performed By: #### A LLBG ####[facility] LABCLIA [id number] [place] [address] [place] Oxygen adjusted to patient's actual temperature (Bld) [Partial pressure] 327 mmHg High 85-95 [facility] Comment on above: Order Comment: Speci men Type: ARTERIAL BLOOD SPECIMENOrdering Facility: [facility] Address: [address] [place] [address] Performed By: #### A LLBG ####[facility] LABCLIA [id number] [place] [id number] [place] Oxyhemoglobin (BldA) [Mass fraction] 97 % Normal 95-98 [facility] Comment on above: Order Comment: Speci men Type: ARTERIAL BLOOD SPECIMENOrdering Facility: [facility] Address: [address] [place] [address] Performed By: #### A LLBG ####[facility] LABCLIA [id number] [place] [id number] [place] pH (Bld) 7.40 [pH] Normal 7.35-7.45 [facility] Comment on above: Order Comment: Speci men Type: ARTERIAL BLOOD SPECIMENOrdering Facility: [facility] Address: [address] [place] [address] Performed By: #### A LLBG ####[facility] LABCLIA [id number] [place] [address] [place] pH adjusted to patient's actual temperature (Bld) 7.40 Normal 7.35-7.45 [facility] Comment on above: Order Comment: Speci men Type: ARTERIAL BLOOD SPECIMENOrdering Facility: [facility] Address: [address] [place] [address] Performed By: #### A LLBG ####[facility] LABCLIA [id number] [place] [address] [place] Potassium [Moles/Vol] 3.8 mmol/L Normal 3.5-5.0 [facility] Comment on above: Order Comment: Speci men Type: ARTERIAL BLOOD SPECIMENOrdering Facility: [facility] Address: [address] [place] [address] Performed By: #### A LLBG ####[facility] LABCLIA [id number] [place] [address] [place] Sodium [Moles/Vol] 137 mmol/L Normal 136-144 [facility] Comment on above: Order Comment: Speci men Type: ARTERIAL BLOOD SPECIMENOrdering Facility: [facility] Address: [address] [place] [address] Performed By: #### A LLBG ####[facility] LABCLIA [id number] [place] [address] [place] Base excess Calc (Bld) [Moles/Vol] 1 mmol/L Normal 0-2 [facility] Comment on above: Order Comment: Speci men Type: ARTERIAL BLOOD SPECIMENOrdering Facility: [facility] Address: [address] [place] [address] Performed By: #### A LLBG ####[facility] LABIA [id number] [place] [address] [place] Calcium.ionized (Bld) [Mass/Vol] 1.23 mmol/L Normal 1.08-1.30 [facility] Comment on above: Order Comment: Speci men Type: ARTERIAL BLOOD SPECIMENOrdering Facility: [facility] Address: [address] [place] [address] Performed By: #### A LLBG ####[facility] LABIA [id number] [place] [address] [place] Calcium.ionized adjusted to pH 7.4 (BldA) [Moles/Vol] 1.23 mmol/L Normal 1.08-1.30 [facility] Comment on above: Order Comment: Speci men Type: ARTERIAL BLOOD SPECIMENOrdering Facility: [facility] Address: [address] [place] [address] Performed By: #### A LLBG ####[facility] [id number] [place] [address] [place] Carboxyhemoglobin (BldA) [Mass fraction] 1.8 % Normal 0.0-2.0 [facility] Comment on above: Order Comment: Speci men Type: ARTERIAL BLOOD SPECIMENOrdering Facility: [facility] Address: [address] [place] [address] Result Comment: Carb oxyhemoglobin Reference Range for Smokers: 2.0-8.0% Performed By: #### A LLBG ####[facility] LABIA [id number] [place] [address] [place] CO2 (Bld) [Partial pressure] 43 mm Hg Normal 36-46 [facility] Comment on above: Order Comment: Speci men Type: ARTERIAL BLOOD SPECIMENOrdering Facility: [facility] Address: [address] [place] [address] Performed By: #### A LLBG ####[facility] LABCLIA [id number] [place] [address] [place] CO2 adjusted to patient's actual temperature (Bld) [Partial pressure] 43 mmHg Normal 36-46 [facility] Comment on above: Order Comment: Speci men Type: ARTERIAL BLOOD SPECIMENOrdering Facility: [facility] Address: [address] [place] [address] Performed By: #### A LLBG ####[facility] LABCLIA [id number] [place] [address] [place] Glucose [Mass/Vol] 138 mg/dL High 60-105 [facility] Comment on above: Order Comment: Speci men Type: ARTERIAL BLOOD SPECIMENOrdering Facility: [facility] Address: [address] [place] [address] Performed By: #### A LLBG ####[facility] LABCLIA [id number] [place] [address] [place] HCO3 (Bld) [Moles/Vol] 26 mmol/L Normal 22-26 [facility] Comment on above: Order Comment: Speci men Type: ARTERIAL BLOOD SPECIMENOrdering Facility: [facility] Address: [address] [place] [address] Performed By: #### A LLBG ####[facility] LABCLIA [id number] [place] [address] [place] Hematocrit (Bld) [Volume fraction] 34.3 % Low 39.0-51.0 [facility] Comment on above: Order Comment: Speci men Type: ARTERIAL BLOOD SPECIMENOrdering Facility: [facility] Address: [address] [place] [address] Performed By: #### A LLBG ####[facility] LABCLIA [id number] [place] [address] [place] Hemoglobin (Bld) [Mass/Vol] 11.1 g/dL Low 13.0-17.0 [facility] Comment on above: Order Comment: Speci men Type: ARTERIAL BLOOD SPECIMENOrdering Facility: [facility] Address: [address] [place] [address] Performed By: #### A LLBG ####[facility] LABCLIA [id number] [place] [address] [place] Lactate [Moles/Vol] 0.9 mmol/L Normal 0.5-2.2 [facility] Comment on above: Order Comment: Speci men Type: ARTERIAL BLOOD SPECIMENOrdering Facility: [facility] Address: [address] [place] [address] Performed By: #### A LLBG ####[facility] LABCLIA [id number] [place] [address] [place] Methemoglobin (Bld) [Mass fraction] 1.0 % Normal 0.0-1.5 [facility] Comment on above: Order Comment: Speci men Type: ARTERIAL BLOOD SPECIMENOrdering Facility: [facility] Address: [address] [place] [address] Performed By: #### A LLBG ####[facility] LABCLIA [id number] [place] [address] [place] Oxygen (Bld) [Partial pressure] 218 mm Hg High 85-95 [facility] Comment on above: Order Comment: Speci men Type: ARTERIAL BLOOD SPECIMENOrdering Facility: [facility] Address: [address] [place] [address] Performed By: #### A LLBG ####[facility] LABCLIA [id number] [place] [address] [place] Oxygen adjusted to patient's actual temperature (Bld) [Partial pressure] 218 mmHg High 85-95 [facility] Comment on above: Order Comment: Speci men Type: ARTERIAL BLOOD SPECIMENOrdering Facility: [facility] Address: [address] [place] [address] Performed By: #### A LLBG ####[facility] LABCLIA [id number] [place] [address] [place] Oxyhemoglobin (BldA) [Mass fraction] 97 % Normal 95-98 [facility] Comment on above: Order Comment: Speci men Type: ARTERIAL BLOOD SPECIMENOrdering Facility: [facility] Address: [address] [place] [address] Performed By: #### A LLBG ####[facility] LABCLIA [id number] [place] [address] [place] pH (Bld) 7.39 [pH] Normal 7.35-7.45 [facility] Comment on above: Order Comment: Speci men Type: ARTERIAL BLOOD SPECIMENOrdering Facility: [facility] Address: [address] [place] [address] Performed By: #### A LLBG ####[facility] LABCLIA [id number] [place] [address] [place] pH adjusted to patient's actual temperature (Bld) 7.39 Normal 7.35-7.45 [facility] Comment on above: Order Comment: Speci men Type: ARTERIAL BLOOD SPECIMENOrdering Facility: [facility] Address: [address] [place] [address] Performed By: #### A LLBG ####[facility] LABCLIA [id number] [place] [address] [place] Potassium [Moles/Vol] 3.4 mmol/L Low 3.5-5.0 [facility] Comment on above: Order Comment: Speci men Type: ARTERIAL BLOOD SPECIMENOrdering Facility: [facility] Address: [address] [place] [address] Performed By: #### A LLBG ####[facility] LABCLIA [id number] [place] [address] [place] Sodium [Moles/Vol] 140 mmol/L Normal 136-144 [facility] Comment on above: Order Comment: Speci men Type: ARTERIAL BLOOD SPECIMENOrdering Facility: [facility] Address: [address] [place] [address] Performed By: #### A LLBG ####[facility] LABR[facility] [id number] [place] [address] [place] Base excess Calc (Bld) [Moles/Vol] 2 mmol/L Normal 0-2 [facility] Comment on above: Order Comment: Speci men Type: ARTERIAL BLOOD SPECIMENOrdering Facility: [facility] Address: [address] [place] [address] Performed By: #### A LLBG ####[facility] LABR[facility] [id number] [place] [address] [place] Calcium.ionized (Bld) [Mass/Vol] 1.23 mmol/L Normal 1.08-1.30 [facility] Comment on above: Order Comment: Speci men Type: ARTERIAL BLOOD SPECIMENOrdering Facility: [facility] Address: [address] [place] [address] Performed By: #### A LLBG ####[facility] [id number] [place] [address] [place] Calcium.ionized adjusted to pH 7.4 (BldA) [Moles/Vol] 1.24 mmol/L Normal 1.08-1.30 [facility] Comment on above: Order Comment: Speci men Type: ARTERIAL BLOOD SPECIMENOrdering Facility: [facility] Address: [address] [place] [address] Performed By: #### A LLBG ####[facility] [id number] [place] [address] [place] Carboxyhemoglobin (BldA) [Mass fraction] 1.3 % Normal 0.0-2.0 [facility] Comment on above: Order Comment: Speci men Type: ARTERIAL BLOOD SPECIMENOrdering Facility: [facility] Address: [address] [place] [address] Result Comment: Carb oxyhemoglobin Reference Range for Smokers: 2.0-8.0% Performed By: #### A LLBG ####[facility] LABCLIA [id number] [place] [address] [place] CO2 (Bld) [Partial pressure] 42 mm Hg Normal 36-46 [facility] Comment on above: Order Comment: Speci men Type: ARTERIAL BLOOD SPECIMENOrdering Facility: [facility] Address: [address] [place] [address] Performed By: #### A LLBG ####[facility] LABCLIA [id number] [place] [address] [place] CO2 adjusted to patient's actual temperature (Bld) [Partial pressure] 42 mmHg Normal 36-46 [facility] Comment on above: Order Comment: Speci men Type: ARTERIAL BLOOD SPECIMENOrdering Facility: [facility] Address: [address] [place] [address] Performed By: #### A LLBG ####[facility] LABCLIA [id number] [place] [address] [place] Glucose [Mass/Vol] 110 mg/dL High 60-105 [facility] Comment on above: Order Comment: Speci men Type: ARTERIAL BLOOD SPECIMENOrdering Facility: [facility] Address: [address] [place] [address] Performed By: #### A LLBG ####[facility] LABCLIA [id number] [place] [address] [place] HCO3 (Bld) [Moles/Vol] 26 mmol/L Normal 22-26 [facility] Comment on above: Order Comment: Speci men Type: ARTERIAL BLOOD SPECIMENOrdering Facility: [facility] Address: [address] [place] [address] Performed By: #### A LLBG ####[facility] LABCLIA [id number] [place] [address] [place] Hematocrit (Bld) [Volume fraction] 37.1 % Low 39.0-51.0 [facility] Comment on above: Order Comment: Speci men Type: ARTERIAL BLOOD SPECIMENOrdering Facility: [facility] Address: [address] [place] [address] Performed By: #### A LLBG ####[facility] LABCLIA [id number] [place] [address] [place] Hemoglobin (Bld) [Mass/Vol] 12.1 g/dL Low 13.0-17.0 [facility] Comment on above: Order Comment: Speci men Type: ARTERIAL BLOOD SPECIMENOrdering Facility: [facility] Address: [address] [place] [address] Performed By: #### A LLBG ####[facility] LABIA [id number] [place] [address] [place] Lactate [Moles/Vol] 0.9 mmol/L Normal 0.5-2.2 [facility] Comment on above: Order Comment: Speci men Type: ARTERIAL BLOOD SPECIMENOrdering Facility: [facility] [facility] Address: [address] [place] [address] Performed By: #### A LLBG ####[facility] LABIA [id number] [place] [address] [place] Methemoglobin (Bld) [Mass fraction] 0.9 % Normal 0.0-1.5 [facility] Comment on above: Order Comment: Speci men Type: ARTERIAL BLOOD SPECIMENOrdering Facility: [facility] Address: [address] [place] [address] Performed By: #### A LLBG ####[facility] LABIA [id number] [place] [address] [place] Oxygen (Bld) [Partial pressure] 100 mm Hg High 85-95 [facility] Comment on above: Order Comment: Speci men Type: ARTERIAL BLOOD SPECIMENOrdering Facility: [facility] Address: [address] [place] [address] Performed By: #### A LLBG ####[facility] LABCLIA [id number] [place] [address] [place] Oxygen adjusted to patient's actual temperature (Bld) [Partial pressure] 100 mmHg High 85-95 [facility] Comment on above: Order Comment: Speci men Type: ARTERIAL BLOOD SPECIMENOrdering Facility: [facility] Address: [address] [place] [address] Performed By: #### A LLBG ####[facility] LABCLIA [id number] [place] [address] [place] Oxyhemoglobin (BldA) [Mass fraction] 96 % Normal 95-98 [facility] Comment on above: Order Comment: Speci men Type: ARTERIAL BLOOD SPECIMENOrdering Facility: [facility] Address: [address] [place] [address] Performed By: #### A LLBG ####[facility] LABCLIA [id number] [place] [address] [place] pH (Bld) 7.42 [pH] Normal 7.35-7.45 [facility] Comment on above: Order Comment: Speci men Type: ARTERIAL BLOOD SPECIMENOrdering Facility: [facility] Address: [address] [place] [address] Performed By: #### A LLBG ####[facility] LABCLIA [id number] [place] [address] [place] pH adjusted to patient's actual temperature (Bld) 7.42 Normal 7.35-7.45 [facility] Comment on above: Order Comment: Speci men Type: ARTERIAL BLOOD SPECIMENOrdering Facility: [facility] Address: [address] [place] [address] Performed By: #### A LLBG ####[facility] LABCLIA [id number] [place] [address] [place] Potassium [Moles/Vol] 3.6 mmol/L Normal 3.5-5.0 [facility] Comment on above: Order Comment: Speci men Type: ARTERIAL BLOOD SPECIMENOrdering Facility: [facility] Address: [address] [place] [address] Performed By: #### A LLBG ####[facility] LABCLIA [id number] [place] [address] [place] Sodium [Moles/Vol] 140 mmol/L Normal 136-144 [facility] Comment on above: Order Comment: Speci men Type: ARTERIAL BLOOD SPECIMENOrdering Facility: [facility] Address: [address] [place] [address] Performed By: #### A LLBG ####[facility] LABIA [id number] [place] [address] [place] CBC panel Auto (Bld)on 10-28 Erythrocyte distribution width (RBC) [Ratio] 16.8 % High 11.5-15.0 [facility] Comment on above: Order Comment: Speci men Type: BLOOD SPECIMENOrdering Facility: [facility] Address: [address] [place] [address] Performed By: #### 5 8410-2 ####[facility] LABIA [id number] [place] [address] [place] Hematocrit (Bld) [Volume fraction] 29.5 % Low 39.0-51.0 [facility] Comment on above: Order Comment: Speci men Type: BLOOD SPECIMENOrdering Facility: [facility] Address: [address] [place] [address] Performed By: #### 5 8410-2 ####[facility] LABIA [id number] [place] [address] [place] Hemoglobin (Bld) [Mass/Vol] 9.4 g/dL Low 13.0-17.0 [facility] Comment on above: Order Comment: Speci men Type: BLOOD SPECIMENOrdering Facility: [facility] Address: [address] [place] [address] Performed By: #### 5 8410-2 ####[facility] LABIA [id number] [place] [address] [place] MCH (RBC) [Entitic mass] 26.9 pg Normal 26.0-34.0 [facility] Comment on above: Order Comment: Speci men Type: BLOOD SPECIMENOrdering Facility: [facility] Address: [address] [place] [address] Performed By: #### 5 8410-2 ####[facility] LABIA [id number] [place] [address] [place] MCHC (RBC) [Mass/Vol] 31.9 g/dL Normal 30.5-36.0 [facility] Comment on above: Order Comment: Speci men Type: BLOOD SPECIMENOrdering Facility: [facility] Address: [address] [place] [address] Performed By: #### 5 8410-2 ####[facility] LABIA [id number] [place] [address] [place] MCV (RBC) [Entitic vol] 84.5 fL Normal 80.0-100.0 [facility] Comment on above: Order Comment: Speci men Type: BLOOD SPECIMENOrdering Facility: [facility] Address: [address] [place] [address] Performed By: #### 5 8410-2 ####[facility] LABIA [id number] [place] [address] [place] Nucleated RBC (Bld) [#/Vol] 10*3/uL Normal <0.01 [facility] Comment on above: Order Comment: Speci men Type: BLOOD SPECIMENOrdering Facility: [facility] Address: [address] [place] [address] Performed By: #### 5 8410-2 ####[facility] LABIA [id number] [id number] [address] [place] Platelet mean volume (Bld) [Entitic vol] 11.6 fL Normal 9.0-12.7 [facility] Comment on above: Order Comment: Speci men Type: BLOOD SPECIMENOrdering Facility: [facility] Address: [address] [place] [address] Performed By: #### 5 8410-2 ####[facility] LABCLIA [id number] [place] [address] [place] Platelets (Bld) [#/Vol] 132 10*3/uL Low 150-400 [facility] Comment on above: Order Comment: Speci men Type: BLOOD SPECIMENOrdering Facility: [facility] Address: [address] [place] [address] Result Comment: Resu lts checked and verified.No clot detected. Performed By: #### 5 8410-2 ####[facility] LABCLIA [id number] [place] [address] [place] RBC (Bld) [#/Vol] 3.49 10*6/uL Low 4.20-6.00 [facility] Comment on above: Order Comment: Speci men Type: BLOOD SPECIMENOrdering Facility: [facility] Address: [address] [place] [address] Performed By: #### 5 8410-2 ####[facility] LABIA [id number] [place] [address] [place] WBC (Bld) [#/Vol] 14.53 10*3/uL High 3.70-11.00 [facility] Comment on above: Order Comment: Speci men Type: BLOOD SPECIMENOrdering Facility: [facility] Address: [address] [place] [address] Performed By: #### 5 8410-2 ####[facility] LABCLIA [id number] [place] [id number] [place] CNOVon 10-28-2023 CNOV Normal [facility] ECG COMPLETEon 10-28-2023 ECG COMPLETE Normal [facility] Fibrinogen PPP-mCncon 2022 Fibrinogen Coag (PPP) [Mass/Vol] 240 mg/dL Normal 200-400 [facility] Comment on above: Order Comment: Speci men Type: BLOOD SPECIMENOrdering Facility: [facility] Address: [address] [place] [address] Performed By: #### 3 255-7, 37387-4, 36974-6 ####[facility] LABCLIA [id number] [place] [address] [place] Fibrinogen Coag (PPP) [Mass/Vol] 236 mg/dL Normal 200-400 [facility] Comment on above: Order Comment: Speci men Type: BLOOD SPECIMENOrdering Facility: [facility] Address: [address] [place] [address] Performed By: #### 3 255-7, 36742-4 ####[facility] LABIA [id number] [place] [address] [place] GLOBAL HEMOSTASISon 10-28-20 23 CITRATED FUNCTIONAL FIBRINOGEN LEVEL 343.1 mg/dL Normal 278.0-581.0 [facility] Comment on above: Order Comment: Speci men Type: BLOOD SPECIMENOrdering Facility: [facility] Address: [address] [place] [address] Performed By: #### T EGGLBL ####[facility] LABCLIA [id number] [place] [address] [place] Clot angle TEG (Bld) [Angle] 73.2 degrees Normal 63.0-78.0 [facility] Comment on above: Order Comment: Speci men Type: BLOOD SPECIMENOrdering Facility: [facility] Address: [address] [place] [address] Performed By: #### T EGGLBL ####[facility] LABCLIA [id number] [place] [address] [place] Clot formation TEG (Bld) [Time] 1.3 minutes Normal 0.8-2.1 [facility] Comment on above: Order Comment: Speci men Type: BLOOD SPECIMENOrdering Facility: [facility] Address: [address] [place] [address] Performed By: #### T EGGLBL ####[facility] LABCLIA [id number] [place] [address] [place] Clotting time after addition of heparinase TEG (Bld) 4.7 minutes Normal 4.3-8.3 [facility] Comment on above: Order Comment: Speci men Type: BLOOD SPECIMENOrdering Facility: [facility] Address: [address] [place] [address] Performed By: #### T EGGLBL ####[facility] LABIA [id number] [address] [place] Clotting time.extrinsic coagulation system activated Rotational TEG (Bld) 6.0 minutes Normal 4.6-9.1 [facility] Comment on above: Order Comment: Speci men Type: BLOOD SPECIMENOrdering Facility: [facility] Address: [address] [place] [address] Performed By: #### T EGGLBL ####[facility] LABIA [id number] [place] [address] [place] Maximum clot firmness TEG (Bld) [Length] 60.5 mm Normal 52.0-69.0 [facility] Comment on above: Order Comment: Speci men Type: BLOOD SPECIMENOrdering Facility: [facility] Address: [address] [place] [address] Performed By: #### T EGGLBL ####[facility] LABIA [id number] [place] [address] [place] Maximum clot firmness.extrinsic coagulation system activated.platelets inhibited Rotational TEG (Bld) [Length] 56.9 mm Normal 52.0-70.0 [facility] Comment on above: Order Comment: Speci men Type: BLOOD SPECIMENOrdering Facility: [facility] Address: [address] [place] [address] Result Comment: 18.8 Performed By: #### T EGGLKARUNA ####[facility] [id number] [place] [address] [place] THROMBOGRAPH INTERP Normal [facility] Comment on above: Order Comment: Speci men Type: BLOOD SPECIMENOrdering Facility: [facility] Address: [address] [place] [address] Result Comment: A th romboelastograph (TEG) study [...] is normal. Performed By: #### T EGGBRYNN ####[facility] [id number] [place] [address] [place] Gas and Carbon monoxide pane l (BldV)on 10-28-2023 Base excess Calc (BldV) [Moles/Vol] 1 mmol/L Normal 0-2 [facility] Comment on above: Order Comment: Speci men Type: VENOUS BLOOD SPECIMENOrdering Facility: [facility] Address: [address] [place] [address] Performed By: #### 2 4344-4 ####[facility] [id number] [place] [address] [place] Calcium.ionized (Bld) [Mass/Vol] 1.15 mmol/L Normal 1.08-1.30 [facility] Comment on above: Order Comment: Speci men Type: VENOUS BLOOD SPECIMENOrdering Facility: [facility] Address: [address] [place] [address] Performed By: #### 2 4344-4 ####[facility] LABCLIA [id number] [place] [address] [place] Calcium.ionized adjusted to pH 7.4 (BldA) [Moles/Vol] 1.13 mmol/L Normal 1.08-1.30 [facility] Comment on above: Order Comment: Speci men Type: VENOUS BLOOD SPECIMENOrdering Facility: [facility] Address: [address] [place] [address] Performed By: #### 2 4344-4 ####[facility] LABIA [id number] [place] [address] [place] Carboxyhemoglobin (BldV) [Mass fraction] 2.0 % Normal 0.0-2.0 [facility] Comment on above: Order Comment: Speci men Type: VENOUS BLOOD SPECIMENOrdering Facility: [facility] Address: [address] [place] [address] Result Comment: Carb oxyhemoglobin Reference Range for Smokers: 2.0-8.0% Performed By: #### 2 4344-4 ####[facility] LABIA [id number] [place] [address] [place] CO2 (BldV) [Partial pressure] 46 mm[Hg] Normal 42-55 [facility] Comment on above: Order Comment: Speci men Type: VENOUS BLOOD SPECIMENOrdering Facility: [facility] Address: [address] [place] [address] Performed By: #### 2 4344-4 ####[facility] LABIA [id number] [place] [address] [place] CO2 adjusted to patient's actual temperature (BldV) [Partial pressure] 46 mmHg Normal 42-55 [facility] Comment on above: Order Comment: Speci men Type: VENOUS BLOOD SPECIMENOrdering Facility: [facility] Address: [address] [place] [address] Performed By: #### 2 4344-4 ####[facility] LABCLIA [id number] [place] [address] [place] Glucose [Mass/Vol] 170 mg/dL High 60-105 [facility] Comment on above: Order Comment: Speci men Type: VENOUS BLOOD SPECIMENOrdering Facility: [facility] Address: [address] [place] [address] Performed By: #### 2 4344-4 ####[facility] LABCLIA [id number] [place] [address] [place] HCO3 (Bld) [Moles/Vol] 26 mmol/L Normal 24-28 [facility] Comment on above: Order Comment: Speci men Type: VENOUS BLOOD SPECIMENOrdering Facility: [facility] Address: [address] [place] [address] Performed By: #### 2 4344-4 ####[facility] LABCLIA [id number] [place] [address] [place] Hematocrit (Bld) [Volume fraction] 28.9 % Low 39.0-51.0 [facility] Comment on above: Order Comment: Speci men Type: VENOUS BLOOD SPECIMENOrdering Facility: [facility] Address: [address] [place] [address] Performed By: #### 2 4344-4 ####[facility] LABCLIA [id number] [place] [address] [place] Hemoglobin (Bld) [Mass/Vol] 9.3 g/dL Low 13.0-17.0 [facility] Comment on above: Order Comment: Speci men Type: VENOUS BLOOD SPECIMENOrdering Facility: [facility] Address: [address] [place] [address] Performed By: #### 2 4344-4 ####[facility] LABCLIA [id number] [place] [address] [place] Lactate [Moles/Vol] 1.0 mmol/L Normal 0.5-2.2 [facility] Comment on above: Order Comment: Speci men Type: VENOUS BLOOD SPECIMENOrdering Facility: [facility] Address: [address] [place] [address] Performed By: #### 2 4344-4 ####[facility] LABCLIA [id number] [address] [address] [place] Methemoglobin (Bld) [Mass fraction] 1.5 % Normal 0.0-1.5 [facility] Comment on above: Order Comment: Speci men Type: VENOUS BLOOD SPECIMENOrdering Facility: [facility] Address: [address] [place] [address] Performed By: #### 2 4344-4 ####[facility] LABCLIA [id number] [address] [address] [place] Oxygen (BldV) [Partial pressure] 92 mm[Hg] High 35-45 [facility] Comment on above: Order Comment: Speci men Type: VENOUS BLOOD SPECIMENOrdering Facility: [facility] Address: [address] [place] [address] Performed By: #### 2 4344-4 ####[facility] LABCLIA [id number] [address] [address] [place] Oxygen adjusted to patient's actual temperature (BldV) [Partial pressure] 92 mmHg High 35-45 [facility] Comment on above: Order Comment: Speci men Type: VENOUS BLOOD SPECIMENOrdering Facility: [facility] Address: [address] [place] [address] Performed By: #### 2 4344-4 ####[facility] LABCLIA [id number] [address] [address] [place] Oxygen saturation in Venous blood 98 % High 60-85 [facility] Comment on above: Order Comment: Speci men Type: VENOUS BLOOD SPECIMENOrdering Facility: [facility] Address: [address] [place] [address] Performed By: #### 2 4344-4 ####[facility] LABCLIA [id number] [place] [address] [place] Oxyhemoglobin (BldV) [Mass fraction] 94 % High 60-85 [facility] Comment on above: Order Comment: Speci men Type: VENOUS BLOOD SPECIMENOrdering Facility: [facility] Address: [address] [place] [address] Performed By: #### 2 4344-4 ####[facility] LABCLIA [id number] [place] [address] [place] pH (BldV) 7.38 [pH] Normal 7.32-7.42 [facility] Comment on above: Order Comment: Speci men Type: VENOUS BLOOD SPECIMENOrdering Facility: [facility] Address: [address] [place] [address] Performed By: #### 2 4344-4 ####[facility] LABIA [id number] [place] [address] [place] pH adjusted to patient's actual temperature (BldV) 7.38 Normal 7.32-7.42 [facility] Comment on above: Order Comment: Speci men Type: VENOUS BLOOD SPECIMENOrdering Facility: [facility] Address: [address] [place] [address] Performed By: #### 2 4344-4 ####[facility] LABIA [id number] [place] [address] [place] Potassium [Moles/Vol] 3.8 mmol/L Normal 3.5-5.0 [facility] Comment on above: Order Comment: Speci men Type: VENOUS BLOOD SPECIMENOrdering Facility: [facility] Address: [address] [place] [address] Performed By: #### 2 4344-4 ####[facility] LABIA [id number] [place] [address] [place] Sodium [Moles/Vol] 137 mmol/L Normal 136-144 [facility] Comment on above: Order Comment: Speci men Type: VENOUS BLOOD SPECIMENOrdering Facility: [facility] Address: [place] [address] Performed By: #### 2 4344-4 ####[facility] LABCLIA [id number] [place] [address] [place] INTRAOPERATIVE ECHO PREon INTRAOPERATIVE ECHO PRE Normal [facility] OPERATIVE NOon 10-28-2023 OPERATIVE NO Normal [facility] PT panel Coag (PPP)on 2022 INR Coag (PPP) [Relative time] 1.2 {INR} Normal 0.9-1.3 [facility] Comment on above: Order Comment: Speci men Type: BLOOD SPECIMENOrdering Facility: [facility] Address: [place] [address] Result Comment: Calli min K Antagonist (VKA) Therapeutic Range: INR 2 to 3 (Target INR of 2.5)Note: For patients treated with VKA drugs, such as warfarin, the [employer] 2012 Guideline recommends [...] 70: 252-289 Performed By: #### 3 255-7, 59012-0, 69834-6 ####[facility] LABCLIA [id number] [place] [address] [place] PT Coag (PPP) [Time] 13.0 s Normal 9.7-13.0 [facility] Comment on above: Order Comment: Speci men Type: BLOOD SPECIMENOrdering Facility: [facility] Address: [place] [address] Performed By: #### 3 255-7, 10988-3, 10353-7 ####[facility] LABCLIA [id number] [place] [address] [place] INR Coag (PPP) [Relative time] 1.4 {INR} High 0.9-1.3 [facility] Comment on above: Order Comment: Speci men Type: BLOOD SPECIMENOrdering Facility: [facility] Address: [place] [address] Result Comment: Calli min K Antagonist (VKA) Therapeutic Range: INR 2 to 3 (Target INR of 2.5)Note: For patients treated with VKA drugs, such as warfarin, the [employer] 2012 Guideline recommends [...] al. Chest 2012, 141:7S-47SNishimura RA, et al. [facility] 2017, 70: 252-289 Performed By: #### 3 255-7, 07952-5 ####[facility] LABIA [id number] [place] [id number] [place] PT Coag (PPP) [Time] 14.3 s High 9.7-13.0 [facility] Comment on above: Order Comment: Speci men Type: BLOOD SPECIMENOrdering Facility: [facility] Address: [place] [address] Performed By: #### 3 255-7, 09221-0 ####[facility] LABCLIA [id number] [place] [address] [place] Platelets Auto (Bld) [#/Vol] on 10-28-2023 Platelets (Bld) [#/Vol] 111 10*3/uL Low 150-400 [facility] Comment on above: Order Comment: Speci men Type: BLOOD SPECIMENOrdering Facility: [facility] Address: [address] [place] [address] Result Comment: Resu lts checked and verified.No clot detected. Performed By: #### 7 77-3 ####[facility] LABIA [id number] [place] [address] [place] STAPH AUREUS PCRon S. aureus and MRSA panel DEVENDRA+probe (Nose) Normal Negative [facility] Comment on above: Order Comment: Speci men Type: SWAB OF INTERNAL NOSEOrdering Facility: [facility] Address: [address] [place] [address] Result Comment: Nega tive for Staphylococcus aureus by PCR.Negative for MRSA by PCR Performed By: #### S APCR ####[facility] LABIA [id number] [place] [address] [place] US LEG VEIN MAP RYLEE VAS LABo n 10-28-2023 US LEG VEIN MAP RYLEE VAS LAB Normal [facility] US RADIAL ARTERY MAP RYLEE VAS LABon 10-28-2023 US RADIAL ARTERY MAP RYLEE VAS LAB Normal [facility] XR CHEST 1V FRONTAL PORTon 1 12-29-2022 XR CHEST 1V FRONTAL PORT Normal [facility] aPTT PPPon 10-28-2023 aPTT Coag (PPP) [Time] 27.8 s Normal 23.0-32.4 [facility] Comment on above: Order Comment: Speci men Type: BLOOD SPECIMENOrdering Facility: [facility] Address: [address] [place] [address] Performed By: #### 3 255-7, 42179-1, 15303-4 ####[facility] LABCLIA [id number] [place] [address] [place] CBC W Auto Differential pane l (Bld)on 10-27-2023 Basophils (Bld) [#/Vol] 0.06 10*3/uL Normal <0.11 [facility] Comment on above: Order Comment: Speci men Type: BLOOD SPECIMENOrdering Facility: [facility] Address: [address] [place] [address] Performed By: #### 5 7021-8 ####[facility] LABCLIA [id number] [place] [address] [place] Basophils/100 WBC (Bld) 0.7 % Normal [facility] Comment on above: Order Comment: Speci men Type: BLOOD SPECIMENOrdering Facility: [facility] Address: [address] [place] [address] Performed By: #### 5 7021-8 ####[facility] LABCLIA [id number] [place] [address] [place] Differential cell count method Nom (Bld) Auto Normal [facility] Comment on above: Order Comment: Speci men Type: BLOOD SPECIMENOrdering Facility: [facility] Address: [address] [place] [address] Performed By: #### 5 7021-8 ####[facility] LABCLIA [id number] [place] [address] [place] Eosinophils (Bld) [#/Vol] 0.28 10*3/uL Normal <0.46 [facility] Comment on above: Order Comment: Speci men Type: BLOOD SPECIMENOrdering Facility: [facility] Address: [address] [place] [address] Performed By: #### 5 7021-8 ####[facility] LABCLIA [id number] [place] [address] [place] Eosinophils/100 WBC (Bld) 3.5 % Normal [facility] Comment on above: Order Comment: Speci men Type: BLOOD SPECIMENOrdering Facility: [facility] Address: [address] [place] [address] Performed By: #### 5 7021-8 ####[facility] LABCLIA [id number] [place] [address] [place] Erythrocyte distribution width (RBC) [Ratio] 17.0 % High 11.5-15.0 [facility] Comment on above: Order Comment: Speci men Type: BLOOD SPECIMENOrdering Facility: [facility] Address: [address] [place] [address] Performed By: #### 5 7021-8 ####[facility] LABIA [id number] [place] [address] [place] Hematocrit (Bld) [Volume fraction] 39.6 % Normal 39.0-51.0 [facility] Comment on above: Order Comment: Speci men Type: BLOOD SPECIMENOrdering Facility: [facility] Address: [address] [place] [address] Performed By: #### 5 7021-8 ####[facility] LABIA [id number] [place] [address] [place] Hemoglobin (Bld) [Mass/Vol] 12.3 g/dL Low 13.0-17.0 [facility] Comment on above: Order Comment: Speci men Type: BLOOD SPECIMENOrdering Facility: [facility] Address: [address] [place] [address] Performed By: #### 5 7021-8 ####[facility] LABIA [id number] [place] [address] [place] Immature granulocytes (Bld) [#/Vol] 0.06 10*3/uL Normal <0.10 [facility] Comment on above: Order Comment: Speci men Type: BLOOD SPECIMENOrdering Facility: [facility] Address: [address] [place] [address] Performed By: #### 5 7021-8 ####[facility] LABCLIA [id number] [address] [place] Immature granulocytes/100 WBC (Bld) 0.7 % Normal [facility] Comment on above: Order Comment: Speci men Type: BLOOD SPECIMENOrdering Facility: [facility] Address: [address] [place] [address] Performed By: #### 5 7021-8 ####[facility] LABIA [id number] [place] [address] [place] Lymphocytes (Bld) [#/Vol] 1.00 10*3/uL Normal 1.00-4.00 [facility] Comment on above: Order Comment: Speci men Type: BLOOD SPECIMENOrdering Facility: [facility] Address: [address] [place] [address] Performed By: #### 5 7021-8 ####[facility] LABIA [id number] [place] [address] [place] Lymphocytes/100 WBC (Bld) 12.5 % Normal [facility] Comment on above: Order Comment: Speci men Type: BLOOD SPECIMENOrdering Facility: [facility] Address: [address] [place] [address] Performed By: #### 5 7021-8 ####[facility] LABIA [id number] [place] [address] [place] MCH (RBC) [Entitic mass] 26.6 pg Normal 26.0-34.0 [facility] Comment on above: Order Comment: Speci men Type: BLOOD SPECIMENOrdering Facility: [facility] Address: [address] [place] [address] Performed By: #### 5 7021-8 ####[facility] LABIA [id number] [place] [address] [place] MCHC (RBC) [Mass/Vol] 31.1 g/dL Normal 30.5-36.0 [facility] Comment on above: Order Comment: Speci men Type: BLOOD SPECIMENOrdering Facility: [facility] Address: [address] [place] [address] Performed By: #### 5 7021-8 ####[facility] LABCLIA [id number] [place] [address] [place] MCV (RBC) [Entitic vol] 85.7 fL Normal 80.0-100.0 [facility] Comment on above: Order Comment: Speci men Type: BLOOD SPECIMENOrdering Facility: [facility] Address: [address] [place] [address] Performed By: #### 5 7021-8 ####[facility] LABIA [id number] [place] [address] [place] Monocytes (Bld) [#/Vol] 0.58 10*3/uL Normal <0.87 [facility] Comment on above: Order Comment: Speci men Type: BLOOD SPECIMENOrdering Facility: [facility] Address: [address] [place] [address] Performed By: #### 5 7021-8 ####[facility] LABCLIA [id number] [place] [address] [place] Monocytes/100 WBC (Bld) 7.2 % Normal [facility] Comment on above: Order Comment: Speci men Type: BLOOD SPECIMENOrdering Facility: [facility] Address: [address] [place] [address] Performed By: #### 5 7021-8 ####[facility] LABCLIA [id number] [place] [address] [place] Neutrophils (Bld) [#/Vol] 6.05 10*3/uL Normal 1.45-7.50 [facility] Comment on above: Order Comment: Speci men Type: BLOOD SPECIMENOrdering Facility: [facility] Address: [address] [place] [address] Performed By: #### 5 7021-8 ####[facility] LABCLIA [id number] [place] [address] [place] Neutrophils/100 WBC (Bld) 75.4 % Normal [facility] Comment on above: Order Comment: Speci men Type: BLOOD SPECIMENOrdering Facility: [facility] Address: [address] [place] [address] Performed By: #### 5 7021-8 ####[facility] LABCLIA [id number] [place] [address] [place] Nucleated RBC (Bld) [#/Vol] 10*3/uL Normal <0.01 [facility] Comment on above: Order Comment: Speci men Type: BLOOD SPECIMENOrdering Facility: [facility] Address: [address] [place] [address] Performed By: #### 5 7021-8 ####[facility] LABIA [id number] [place] [address] [place] Nucleated RBC/100 WBC (Bld) [Ratio] 0.0 /100 WBC Normal [facility] Comment on above: Order Comment: Speci men Type: BLOOD SPECIMENOrdering Facility: [facility] Address: [address] [place] [address] Performed By: #### 5 7021-8 ####[facility] LABIA [id number] [place] [address] [place] Platelet mean volume (Bld) [Entitic vol] 11.9 fL Normal 9.0-12.7 [facility] Comment on above: Order Comment: Speci men Type: BLOOD SPECIMENOrdering Facility: [facility] Address: [address] [place] [address] Performed By: #### 5 7021-8 ####[facility] LABIA [id number] [place] [address] [place] Platelets (Bld) [#/Vol] 160 10*3/uL Normal 150-400 [facility] Comment on above: Order Comment: Speci men Type: BLOOD SPECIMENOrdering Facility: [facility] Address: [address] [place] [address] Performed By: #### 5 7021-8 ####[facility] LABCLIA [id number] [address] [address] [place] RBC (Bld) [#/Vol] 4.62 10*6/uL Normal 4.20-6.00 [facility] Comment on above: Order Comment: Speci men Type: BLOOD SPECIMENOrdering Facility: [facility] Address: [address] [place] [address] Performed By: #### 5 7021-8 ####[facility] LABCLIA [id number] [place] [address] [place] WBC (Bld) [#/Vol] 8.03 10*3/uL Normal 3.70-11.00 [facility] Comment on above: Order Comment: Speci men Type: BLOOD SPECIMENOrdering Facility: [facility] Address: [address] [place] [address] Performed By: #### 5 7021-8 ####[facility] LABCLIA [id number] [place] [address] [place] CNCNPATEDon 10-27-2023 CNCNPATED Normal [facility] CNCOon 10-27-2023 CNCO Letter Text Normal [facility] CNOVon 10-27-2023 CNOV Normal [facility] CNOV Normal [facility] CNOV Normal [facility] CONFIRM BLOOD TYPEon 023 ABO O Normal [facility] Comment on above: Order Comment: Speci men Type: BLOOD SPECIMENOrdering Facility: [facility] Address: [address] [place] [address] Performed By: #### C ONABO ####[facility] BLOOD BANKCLIA [id number] [place] [address] [place] Rh Nom (Bld) Negative Normal [facility] Comment on above: Order Comment: Speci men Type: BLOOD SPECIMENOrdering Facility: [facility] Address: [address] [place] [address] Performed By: #### C ONABO ####CC [facility] BANKCLIA [id number] [place] [address] [place] Comprehensive metabolic 2000 panelon 10-27-2023 Albumin [Mass/Vol] 4.5 g/dL Normal 3.9-4.9 [facility] Comment on above: Order Comment: Speci men Type: BLOOD SPECIMENOrdering Facility: [facility] Address: [address] [place] [address] Performed By: #### 2 4323-8, 2531-0 ####[facility] LABCLIA [id number] [place] [address] [place] ALP [Catalytic activity/Vol] 93 U/L Normal 38-113 [facility] Comment on above: Order Comment: Speci men Type: BLOOD SPECIMENOrdering Facility: [facility] Address: [address] [place] [address] Performed By: #### 2 432-8, 2531-0 ####[facility] LABCLIA [id number] [place] [address] [place] ALT [Catalytic activity/Vol] 19 U/L Normal 10-54 [facility] Comment on above: Order Comment: Speci men Type: BLOOD SPECIMENOrdering Facility: [facility] Address: [address] [place] [address] Performed By: #### 2 4323-8, 2-0 ####[facility] LABCLIA [id number] [place] [id number] [place] Anion gap [Moles/Vol] 14 mmol/L Normal 9-18 [facility] Comment on above: Order Comment: Speci men Type: BLOOD SPECIMENOrdering Facility: [facility] Address: [address] [place] [address] Performed By: #### 2 432-8, 2531-0 ####[facility] LABCLIA [id number] [place] [address] [place] AST [Catalytic activity/Vol] 18 U/L Normal 14-40 [facility] Comment on above: Order Comment: Speci men Type: BLOOD SPECIMENOrdering Facility: [facility] Address: [address] [place] [address] Performed By: #### 2 4328, 2531-0 ####[facility] LABCLIA [id number] [place] [address] [place] Bilirubin [Mass/Vol] 0.5 mg/dL Normal 0.2-1.3 [facility] Comment on above: Order Comment: Speci men Type: BLOOD SPECIMENOrdering Facility: [facility] Address: [address] [place] [address] Performed By: #### 2 4328, 2531-0 ####[facility] LABCLIA [id number] [place] [address] [place] Calcium [Mass/Vol] 9.9 mg/dL Normal 8.5-10.2 [facility] Comment on above: Order Comment: Speci men Type: BLOOD SPECIMENOrdering Facility: [facility] Address: [address] [place] [address] Performed By: #### 2 4328, 0 ####[facility] LABCLIA [id number] [place] [address] [place] Chloride [Moles/Vol] 102 mmol/L Normal 97-105 [facility] Comment on above: Order Comment: Speci men Type: BLOOD SPECIMENOrdering Facility: [facility] Address: [address] [place] [address] Performed By: #### 2 4328, 2531-0 ####[facility] LABCLIA [id number] [place] [address] [place] CO2 [Moles/Vol] 26 mmol/L Normal 22-30 [facility] Comment on above: Order Comment: Speci men Type: BLOOD SPECIMENOrdering Facility: [facility] Address: [address] [place] [address] Performed By: #### 2 4323-8, 2531-0 ####[facility] LABIA [id number] [place] [address] [place] Creatinine [Mass/Vol] 1.29 mg/dL High 0.73-1.22 [facility] Comment on above: Order Comment: Speci men Type: BLOOD SPECIMENOrdering Facility: [facility] Address: [address] [place] [address] Performed By: #### 2 43238, 2531-0 ####[facility] [id number] [place] [address] [place] Creatinine and Glomerular filtration rate.predicted panel (S/P/Bld) 61 mL/min/1.73m??? Normal >=60 [facility] Comment on above: Order Comment: Speci men Type: BLOOD SPECIMENOrdering Facility: [facility] Address: [address] [place] [address] Result Comment: Gisselle mated Glomerular Filtration Rate [...] GFR. Performed By: #### 2 4323-8, 0 ####[facility] LABIA [id number] [place] [id number] [place] Glucose [Mass/Vol] 137 mg/dL High 74-99 [facility] Comment on above: Order Comment: Speci men Type: BLOOD SPECIMENOrdering Facility: [facility] Address: [address] [place] [address] Result Comment: The [place] [employer] (ADA) provides guidance for cutoff [...] Standards of Medical Care in Diabetes 2016, [place] [employer]. Diabetes Care. 2016.39(Suppl 1). Performed By: #### 2 4323-8, 0 ####[facility] LABCLIA [id number] [place] [address] [place] Potassium [Moles/Vol] 4.1 mmol/L Normal 3.7-5.1 [facility] Comment on above: Order Comment: Speci men Type: BLOOD SPECIMENOrdering Facility: [facility] Address: [address] [place] [address] Performed By: #### 2 4323-8, ####[facility] LABCLIA [id number] [place] [address] [place] Protein [Mass/Vol] 6.4 g/dL Normal 6.3-8.0 [facility] Comment on above: Order Comment: Speci men Type: BLOOD SPECIMENOrdering Facility: [facility] Address: [address] [place] [address] Performed By: #### 2 4328, 0 ####[facility] LABCLIA [id number] [place] [id number] [place] Sodium [Moles/Vol] 142 mmol/L Normal 136-144 [facility] Comment on above: Order Comment: Speci men Type: BLOOD SPECIMENOrdering Facility: [facility] Address: [address] [place] [address] Performed By: #### 2 4323-8, 2531-0 ####[facility] LABCLIA [id number] [place] [address] [place] Urea nitrogen [Mass/Vol] 26 mg/dL High 9-24 [facility] Comment on above: Order Comment: Speci men Type: BLOOD SPECIMENOrdering Facility: [facility] Address: [address] [place] [address] Performed By: #### 2 4323-8, 2531-0 ####[facility] LABCLIA [id number] [place] [address] [place] ECG COMPLETEon 10-27-2023 ECG COMPLETE Normal [facility] HISTORY PHYSICALon HISTORY PHYSICAL Normal [facility] HbA1c (Bld)on 10-27-2023 Average glucose Estimated from glycated hemoglobin (Bld) [Mass/Vol] 128 mg/dL Normal [facility] Comment on above: Order Comment: Enma perry Type: BLOOD SPECIMENOrdering Facility: [facility] Address: [address] [place] [address] Result Comment: eAG: (Estimated average glucose) is a calculated value from HgbA1c and is retention representative of the average blood glucose level in the last 2-3 month period. Performed By: #### 5 5454-3 ####[facility] LABCLIA [id number] [place] [address] [place] HbA1c (Bld) [Mass fraction] 6.1 % High 4.3-5.6 [facility] Comment on above: Order Comment: Enma orlando Type: BLOOD SPECIMENOrdering Facility: [facility] Address: [address] [place] [address] Result Comment: [place] Diabetes Association guidelines indicate that patients with HgbA1c in the range 5.7-6.4% are at increased risk for development of diabetes, and intervention by lifestyle modification may be beneficial. HgbA1c greater or equal to 6.5% is considered diagnostic of diabetes. Performed By: #### 5 5454-3 ####[facility] LABCLIA [id number] [place] [address] [place] LDH SerPl-cCncon 10-27-2023 LDH [Catalytic activity/Vol] 171 U/L Normal 135-225 [facility] Comment on above: Order Comment: Speci men Type: BLOOD SPECIMENOrdering Facility: [facility] Address: [address] [place] [address] Performed By: #### 2 4323-8, 2532-0 ####[facility] LABCLIA [id number] [address] [place] Laboratory - Microbiology an d Antimicrobial susceptibilityon 10-27-2023 S. aureus and MRSA panel DEVENDRA+probe (Nose) Negative Negative [facility] PT panel Coag (PPP)on 2022 INR Coag (PPP) [Relative time] 1.0 {INR} Normal 0.9-1.3 [facility] Comment on above: Order Comment: Speci men Type: BLOOD SPECIMENOrdering Facility: [facility] Address: [address] [place] [address] Result Comment: Calli min K Antagonist (VKA) Therapeutic Range: INR 2 to 3 (Target INR of 2.5)Note: For patients treated with VKA drugs, such as warfarin, the [employer] 2012 Guideline recommends [...] 70: 252-289 Performed By: #### 1 4979-9, 15848-0 ####[facility] LABCLIA [id number] [place] [address] [place] PT Coag (PPP) [Time] 10.9 s Normal 9.7-13.0 [facility] Comment on above: Order Comment: Speci men Type: BLOOD SPECIMENOrdering Facility: [facility] Address: [address] [place] [address] Performed By: #### 1 4979-9, 59380-7 ####[facility] LABCLIA [id number] [place] [address] [place] STAPH AUREUS PCRon 3 S. aureus and MRSA panel DEVENDRA+probe (Nose) Normal Negative [facility] Comment on above: Order Comment: Speci men Type: SWAB OF INTERNAL NOSEOrdering Facility: [facility] Address: [address] [place] [address] Result Comment: Nega tive for Staphylococcus aureus by PCR.Negative for MRSA by PCR Performed By: #### S APCR ####[facility] LABCLIA [id number] [address] [place] TYPE AND SCREEN,30 DAYon ABO O Normal [facility] Comment on above: Order Comment: Speci men Type: BLOOD SPECIMENOrdering Facility: [facility] Address: [address] [place] [address] Performed By: #### T SCR30 ####[facility] BLOOD BANKCLIA [id number] [place] [address] [place] HISTORICAL AB SCR STATUS Negative Normal [facility] Comment on above: Order Comment: Speci men Type: BLOOD SPECIMENOrdering Facility: [facility] Address: [address] [place] [address] Performed By: #### T SCR30 ####[facility] BLOOD BANKCLIA [id number] [place] [address] [place] Rh Nom (Bld) Negative Normal [facility] Comment on above: Order Comment: Speci men Type: BLOOD SPECIMENOrdering Facility: [facility] Address: [address] [place] [address] Performed By: #### T SCR30 ####[facility] BLOOD BANKIA [id number] [place] [address] [place] URINALYSIS, DIPSTICK ONLYon 10-27-2023 Bilirubin Ql (U) Negative Normal Negative [facility] Comment on above: Order Comment: Speci men Type: URINE SPECIMENOrdering Facility: [facility] Address: [address] [place] [address] Performed By: #### U A ####[facility] LABCLIA [id number] [place] [address] [place] Clarity (Unsp spec) Clear Normal Clear [facility] Comment on above: Order Comment: Speci men Type: URINE SPECIMENOrdering Facility: [facility] Address: [address] [place] [address] Performed By: #### U A ####[facility] LABCLIA [id number] [place] [address] [place] Color (U) Yellow Normal Yellow [facility] Comment on above: Order Comment: Speci men Type: URINE SPECIMENOrdering Facility: [facility] Address: [address] [place] [address] Performed By: #### U A ####[facility] LABCLIA [id number] [place] [address] [place] Glucose Test strip (U) [Mass/Vol] 3+ Abnormal Negative [facility] Comment on above: Order Comment: Speci men Type: URINE SPECIMENOrdering Facility: [facility] Address: [address] [place] [address] Performed By: #### U A ####[facility] LABCLIA [id number] [place] [address] [place] Hemoglobin Ql (U) Negative Normal Negative [facility] Comment on above: Order Comment: Speci men Type: URINE SPECIMENOrdering Facility: [facility] Address: [address] [place] [address] Performed By: #### U A ####[facility] LABCLIA [id number] [place] [address] [place] Ketones Ql (U) Negative Normal Negative [facility] Comment on above: Order Comment: Speci men Type: URINE SPECIMENOrdering Facility: [facility] Address: [address] [place] [address] Performed By: #### U A ####[facility] LABCLIA [id number] [place] [address] [place] Leukocyte esterase Test strip Ql (U) Negative Normal Negative [facility] Comment on above: Order Comment: Speci men Type: URINE SPECIMENOrdering Facility: [facility] Address: [address] [place] [address] Performed By: #### U A ####[facility] LABCLIA [id number] [place] [address] [place] Nitrite Ql (U) Negative Normal Negative [facility] Comment on above: Order Comment: Speci men Type: URINE SPECIMENOrdering Facility: [facility] Address: [address] [place] [address] Performed By: #### U A ####[facility] LABCLIA [id number] [place] [address] [place] pH (U) 6.5 [pH] Normal <8.5 [facility] Comment on above: Order Comment: Speci men Type: URINE SPECIMENOrdering Facility: [facility] Address: [address] [place] [address] Performed By: #### U A ####[facility] LABCLIA [id number] [place] [address] [place] Protein (U) [Mass/Vol] Negative Normal Negative [facility] Comment on above: Order Comment: Speci men Type: URINE SPECIMENOrdering Facility: [facility] Address: [address] [place] [address] Performed By: #### U A ####[facility] LABIA [id number] [place] [address] [place] Specific gravity (U) [Rel density] 1.019 Normal 1.005-1.030 [facility] Comment on above: Order Comment: Speci men Type: URINE SPECIMENOrdering Facility: [facility] Address: [address] [place] [address] Performed By: #### U A ####[facility] LABIA [id number] [place] [address] [place] Urobilinogen Ql (U) 1.0 EU/dL Normal 0.2-1.0 EU/dL [facility] Comment on above: Order Comment: Speci men Type: URINE SPECIMENOrdering Facility: [facility] Address: [address] [place] [address] Performed By: #### U A ####[facility] LABIA [id number] [place] [address] [place] XR CHEST 2V FRONTAL/LATon XR CHEST 2V FRONTAL/LAT Normal [facility] aPTT PPPon 10-27-2023 aPTT Coag (PPP) [Time] 28.5 s Normal 23.0-32.4 [facility] Comment on above: Order Comment: Speci men Type: BLOOD SPECIMENOrdering Facility: [facility] Address: [address] [place] [address] Performed By: #### 1 4979-9, 48490-5 ####[facility] LABIA [id number] [place] [address] [place] CNPNon 10-05-2023 CNPN Normal [facility] Follow-Upon 09-29-2023 Follow-Up [id number] Courtney Hong M 1955 M Provider Department Center 09/29/2023 [id number]-IGDFIKFSTEPHANIE MERAZ HVCVASENDO [facility] Family History Problem Relation Age of Onset Stroke Mother Prostate cancer Father Family Status - Relation Status Age at Mother Father Level of Service:44658 MA OFFICE/OUTPATIENT ESTABLISHED LOW MDM 20-29 MIN Reason for Visit and Comments: Follow-up [485191] - Cabgx3- Schedule surgery. Normal [facility] Orders Onlyon 09-17-2023 Orders Only [id number] Courtney Hong M 1955 Provider Department Center 09/17/2023 OLY LO DCC INF DCC Family History Problem Relation Age of Onset Stroke Mother Prostate cancer Father Family Status - Relation Status Age at Mother Father [facility] POCT GLUCOSE METER UNSOLICIT ED RESULTSon 09-17-2023 Glucose [Mass/Vol] 137 mg/dL High 70-105 [facility] Comment on above: Order Comment: Waive d Testing in the ED is performed under the ED CLIA certificate #[id number]. Result Comment: [email or web address] Performed By: #### L [id number] ####[facility] LAB (BEAKER)[address] [place] [address] Glucose [Mass/Vol] 153 mg/dL High 70-105 [facility] Comment on above: Order Comment: Waive d Testing in the ED is performed under the ED CLIA certificate #[id number]. Result Comment: [email or web address] [email or web address] Performed By: #### L [id number] ####[facility] (BEAKER)[address] [place] [address] Glucose [Mass/Vol] 104 mg/dL Normal 70-105 [facility] Comment on above: Order Comment: Waive d Testing in the ED is performed under the ED CLIA certificate #[id number]. Result Comment: [email or web address] [email or web address] Performed By: #### L [id number] ####[facility] (BEAKER)[address] [place] [address] Follow-Upon 08-25-2023 Follow-Up [id number] Courtney Hong benigno Quiroga 1955 Date Provider Department Center 08/25/2023 [id number]-ZDVNYFUSTEPHANIE MERAZ [facility]ELIL[facility] Family History Problem Relation Age of Onset Stroke Mother Prostate cancer Father Family Status - Relation Status Age at Mother Father Level of Service:99479 MA OFFICE/OUTPATIENT ESTABLISHED LOW MDM 20-29 MIN Reason for Visit and Comments: Follow-up [326291] - Cabg x3 all testing but labs completed--pick surgery date Normal [facility] Office Visiton 07-28-2023 Follow-up visit [id number] Courtney Hong benigno Quiroga 1955 Date Provider Department Center 07/28/2023 STEPHANIE FONSECA [facility] Family History Problem Relation Age of Onset Stroke Mother Prostate cancer Father Family Status - Relation Status Age at Mother Father Level of Service:25429 MA OFFICE/OP CONSLTJ NEW/EST PT HIGH MDM 55 MINUTES Normal [facility] HPon 07-02-2023 HP --- Attestation signed by [...] perfusion in the inferior wall and apex.. Clinical Pharmacy Technician 1.2 HB 12.1 Plan to proceed with coronary angiography with possible revascularization today. Normal [facility] NURSNOTEon 07-02-2023 NURSNOTE RN educated pt on d/ c instructions. RN encouraged pt to voice any questions or concerns. Pt verbalizes no questions or concerns at this time. Normal [facility] HPon 06-12-2023 Cardiology Clinic No te Chief Complaint: new patient to establish care HPI: Roland Hong is a 68 y.o. male male with a past medical history including HTN, HLD, CAD with TN s/p PCI who is referred to Cardiology clinic for evaluation of chest pain and abnormal stress. Patient reports symptoms of chest pain with exertion over the past several months. He reports associated shortness of breath.. He denies any lower extremity edema, orthopnea, or PND. No near syncope or syncope. No additional complaint at this time. TN with PCI was in 2005. Stress test [...] revascularization -Proc (more content not included)... Normal [facility] Office Visiton 06-12-2023 Follow-up visit [id number] Courtney Hong 1955 M Date Provider Department Center 06/12/2023 3848-YESSI BURGOS SHARON [facility] Family History Problem Relation Age of Onset Stroke Mother Prostate cancer Father Family Status - Relation Status Age at Mother Father Level of Service:95049 MA OFFICE/OUTPATIENT NEW MODERATE MDM 45-59 MINUTES Normal [facility] OCC BLD IMMUNO SCREENon - OCCULT BLOOD Negative Normal NEGATIVE [facility] Comment on above: Performed By: #### O BSCRN #### [facility] [address] [place] [address] Dr. Willie Martinez CBC AUTO DIFFon 01-16-2022 BASO # 0.0 103/ul Normal 0.0-0.1 [facility] Comment on above: Performed By: #### C BC #### [facility] [address] [place] [address] Dr. Willie Martinez Basophils/100 WBC (Bld) 1.0 % Normal 0.2-2.0 [facility] Comment on above: Performed By: #### C BC #### [facility] [address] [place] [address] Dr. Willie Martinez EO # 0.2 103/ul Normal 0.0-0.7 [facility] Comment on above: Performed By: #### C BC #### [facility] [address] [place] [address] Dr. Wlilie Martinez Eosinophils/100 WBC (Bld) 5.9 % Normal 0.9-7.0 [facility] Comment on above: Performed By: #### C BC #### [facility] [address] [place] [address] Dr. Willie Martinez Erythrocyte distribution width (RBC) [Ratio] 15.6 % Critically high 11.0-15.0 [facility] Comment on above: Performed By: #### C BC #### [facility] [address] [place] [address] Dr. Willie Martinze Hematocrit (Bld) [Volume fraction] 42.2 % Normal 42.0-54.0 [facility] Comment on above: Performed By: #### C BC #### [facility] [address] [place] [address] Dr. Willie Martinez Hemoglobin (Bld) [Mass/Vol] 13.0 g/dL Critically low 14.0-18.0 [facility] Comment on above: Performed By: #### C BC #### [facility] [address] [place] [address] Dr. Willie Martienz IG # 0.03 10e3/ul Normal 0.00-0.03 [facility] Comment on above: Performed By: #### C BC #### [facility] [address] [place] [address] Dr. Willie Martinez IG % 0.8 % Critically high 0.0-0.5 [facility] Comment on above: Performed By: #### C BC #### [facility] [address] [place] [address] Dr. Willie Martinez LYMPH # 0.8 103/ul Critically low 1.2-3.8 [facility] Comment on above: Performed By: #### C BC #### [facility] [address] [place] [address] Dr. Willie Martinez Lymphocytes/100 WBC (Bld) 21.3 % Normal 20.5-60.0 [facility] Comment on above: Performed By: #### C BC #### [facility] [address] [place] [address] Dr. Willie Martinez MANUAL DIFF REQ NO Normal [facility] Comment on above: Performed By: #### C BC #### [facility] [address] [place] [address] Dr. Willie Martinez MCH (RBC) [Entitic mass] 26.7 pg Normal 25.9-34.0 [facility] Comment on above: Performed By: #### C BC #### [facility] [address] [place] [address] Dr. Willie Martinez MCHC (RBC) [Mass/Vol] 30.8 g/dL Normal 29.9-35.2 [facility] Comment on above: Performed By: #### C BC #### [facility] [address] [place] [address] Dr. Willie Martinez MCV (RBC) [Entitic vol] 86.7 fL Normal 80.0-94.0 [facility] Comment on above: Performed By: #### C BC #### [facility] [address] [place] [address] Dr. Willie Martinez MONO # 0.4 103/ul Normal 0.3-0.8 [facility] Comment on above: Performed By: #### C BC #### [facility] [address] [address] [address] Willie Martinez Monocytes/100 WBC (Bld) 11.3 % Normal 1.7-12.0 [facility] Comment on above: Performed By: #### C BC #### [facility] [address] [address] [address] Willie Martinez NEUT # 2.3 103/ul Normal 1.4-6.5 [facility] Comment on above: Performed By: #### C BC #### [facility] [address] [address] [address] Willie Martinez Neutrophils/100 WBC (Bld) 59.7 % Normal 43.0-75.0 [facility] Comment on above: Performed By: #### C BC #### [facility] [address] [address] [address] Willie Martinez Platelet mean volume (Bld) [Entitic vol] 11.6 fL Normal 9.5-13.5 [facility] Comment on above: Performed By: #### C BC #### [facility] [address] [address] [address] Willie Martinez PLT 163 103/ul Normal 150-450 [facility] Comment on above: Performed By: #### C BC #### [facility] [address] [address] [address] Willie Martinez RBC 4.87 106/ul Normal 4.70-6.10 [facility] Comment on above: Performed By: #### C BC #### [facility] [address] [address] [address] Willie Martinez WBC 3.9 103/ul Critically low 4.0-11.0 [facility] Comment on above: Performed By: #### C BC #### [facility] [address] [address] [address] Willie Martinez FREE T3on 01-16-2022 FREE T3 2.70 pg/mlL Critically low 2.77-5.27 [facility] Comment on above: Performed By: #### C MP, T4, FT3, TSH, LIPID #### [facility] [address] [address] [address] Willie Martinez GLYCOHEMOGLOBIN A1Con 2021 ADA RECOMMENDATION ADA THERAPEUTIC TARG ET 6.0 - 7.0 ACTION SUGGESTED > 7.0 Normal [facility] Comment on above: Performed By: #### C BC #### [facility] [address] [address] [address] Willie Martinez Glucose [Mass/Vol] 143 mg/dL Normal [facility] Comment on above: Performed By: #### C BC #### [facility] [address] [address] [address] Willie Martinez HbA1c (Bld) [Mass fraction] 6.6 % Critically high <=6.0 [facility] Comment on above: Performed By: #### C BC #### [facility] [address] [place] [address] Dr. Willie Martinez LIPID PROFILEon 01-16-2022 CHOL-HDL RATIO NORM SEE BELOW Normal [facility] Comment on above: Result Comment: 3.3 - 4.4 LOW RISK 4.4 - 7.1 AVERAGE RISK 7.1 - 11.0 MODERATE RISK >11.0 HIGH RISK Performed By: #### C MP, T4, FT3, TSH, LIPID #### [facility] [address] [place] [address] Dr. Willie Martinez Cholesterol [Mass/Vol] 212 mg/dL Critically high <=200 [facility] Comment on above: Performed By: #### C MP, T4, FT3, TSH, LIPID #### [facility] [address] [place] [address] Dr. Willie Martinez Cholesterol in HDL [Mass/Vol] 54 mg/dL Normal [facility] Comment on above: Performed By: #### C MP, T4, FT3, TSH, LIPID #### [facility] [address] [place] [address] Dr. Willie Martinez Cholesterol in LDL [Mass/Vol] 151.4 mg/dL Normal [facility] Comment on above: Performed By: #### C MP, T4, FT3, TSH, LIPID #### [facility] [address] [address] [address] Willie Martinez Cholesterol.total/Cho lesterol in HDL [Mass ratio] 3.9 {ratio} Normal [facility] Comment on above: Performed By: #### C MP, T4, FT3, TSH, LIPID #### [facility] [address] [address] [address] Willie Martinez HDL NORMAL > or = 60 mg/dl - LO W CARDIOVASCULAR RISK <40 mg/dl - HIGH CARDIOVASCULAR RISK Normal [facility] Comment on above: Performed By: #### C MP, T4, FT3, TSH, LIPID #### [facility] [address] [address] [address] Willie Martinez LDL CALC NORMAL SEE BELOW Normal [facility] Comment on above: Result Comment: <100 mg/dl OPTIMAL 100 - 129 mg/dl NEAR OR ABOVE OPTIMAL 130 - 159 mg/dl BORDERLINE HIGH 160 - 189 mg/dl HIGH >190 mg/dl VERY HIGH Performed By: #### C MP, T4, FT3, TSH, LIPID #### [facility] [address] [address] [address] Willie Martinez Triglyceride [Mass/Vol] 33 mg/dL Normal <=150 [facility] Comment on above: Performed By: #### C MP, T4, FT3, TSH, LIPID #### [facility] [address] [address] [address] Willie Martinez VLDL CALC 6.6 mg/dL Normal [facility] Comment on above: Performed By: #### C MP, T4, FT3, TSH, LIPID #### [facility] [address] [address] [address] Willie Martinez PROF 14(COMP METB)on 022 Albumin [Mass/Vol] 4.1 g/dL Normal 3.5-5.0 [facility] Comment on above: Performed By: #### C MP, T4, FT3, TSH, LIPID #### [facility] [address] [address] [address] Willie Martinez Albumin/Globulin [Mass ratio] 1.3 {ratio} Normal [facility] Comment on above: Performed By: #### C MP, T4, FT3, TSH, LIPID #### [facility] [address] [place] [address] Dr. Willie Martinez ALP [Catalytic activity/Vol] 88 U/L Normal 38-126 [facility] Comment on above: Performed By: #### C MP, T4, FT3, TSH, LIPID #### [facility] [address] [place] [address] Dr. Willie Martinez ALT [Catalytic activity/Vol] 29 U/L Normal 21-72 [facility] Comment on above: Performed By: #### C MP, T4, FT3, TSH, LIPID #### [facility] [address] [place] [address] Dr. Willie Martinez Anion gap [Moles/Vol] 10.4 mmol/L Normal [facility] Comment on above: Performed By: #### C MP, T4, FT3, TSH, LIPID #### [facility] [address] [place] [address] Dr. Willie Martinez AST [Catalytic activity/Vol] 15 U/L Critically low 17-59 [facility] Comment on above: Performed By: #### C MP, T4, FT3, TSH, LIPID #### [facility] [address] [place] [address] Dr. Willie Martinez Bilirubin [Mass/Vol] 0.3 mg/dL Normal 0.2-1.3 [facility] Comment on above: Performed By: #### C MP, T4, FT3, TSH, LIPID #### [facility] [address] [place] [address] Dr. Willie Martinez Calcium [Mass/Vol] 9.6 mg/dL Normal 8.4-10.2 [facility] Comment on above: Performed By: #### C MP, T4, FT3, TSH, LIPID #### [facility] [address] [place] [address] Dr. Willie Martinez Chloride [Moles/Vol] 106 mmol/L Normal 98-107 [facility] Comment on above: Performed By: #### C MP, T4, FT3, TSH, LIPID #### [facility] [address] [place] [address] Dr. Willie Martinez CO2 [Moles/Vol] 27.8 mmol/L Normal 22.0-30.0 [facility] Comment on above: Performed By: #### C MP, T4, FT3, TSH, LIPID #### [facility] [address] [place] [address] Dr. Willie Martinez Creatinine [Mass/Vol] 1.09 mg/dL Normal 0.66-1.25 [facility] Comment on above: Performed By: #### C MP, T4, FT3, TSH, LIPID #### [facility] [address] [place] [address] Dr. Willie Martinez EGFR-AF SAMMARINESE >60 Normal >=60 [facility] Comment on above: Performed By: #### C MP, T4, FT3, TSH, LIPID #### [facility] [address] [place] [address] Dr. Willie Martinez EGFR-NON AF SAMMARINESE >60 Normal >=60 [facility] Comment on above: Performed By: #### C MP, T4, FT3, TSH, LIPID #### [facility] [address] [place] [address] Dr. Willie Martinez Globulin (S) [Mass/Vol] 3.2 g/dL Normal [facility] Comment on above: Performed By: #### C MP, T4, FT3, TSH, LIPID #### [facility] [address] [place] [address] Dr. Willie Martinez Glucose [Mass/Vol] 114 mg/dL Critically high 74-106 [facility] Comment on above: Performed By: #### C MP, T4, FT3, TSH, LIPID #### [facility] [address] [place] [address] Dr. Willie Martinez Potassium [Moles/Vol] 4.2 mmol/L Normal 3.4-5.0 [facility] Comment on above: Performed By: #### C MP, T4, FT3, TSH, LIPID #### [facility] [address] [place] [address] Dr. Willie Martinez Protein [Mass/Vol] 7.3 g/dL Normal 6.1-8.2 [facility] Comment on above: Performed By: #### C MP, T4, FT3, TSH, LIPID #### [facility] [address] [place] [address] Dr. Willie Martinez Sodium [Moles/Vol] 140 mmol/L Normal 137-145 [facility] Comment on above: Performed By: #### C MP, T4, FT3, TSH, LIPID #### [facility] [address] [place] [address] Dr. Willie Martinez Urea nitrogen [Mass/Vol] 37.0 mg/dL Critically high 9.0-20.0 [facility] Comment on above: Performed By: #### C MP, T4, FT3, TSH, LIPID #### [facility] [address] [place] [address] Dr. Willie Martinez Urea nitrogen/Creatinine [Mass ratio] 33.9 mg/mg Normal [facility] Comment on above: Performed By: #### C MP, T4, FT3, TSH, LIPID #### [facility] [address] [place] [address] Dr. Willie Martinez T4on 01-16-2022 T4 [Mass/Vol] 5.80 ug/dL Normal 5.53-11.00 [facility] Comment on above: Performed By: #### C MP, T4, FT3, TSH, LIPID #### [facility] [address] [place] [address] Dr. Willie Martinez TSHon 01-16-2022 TSH 1.869 uIU/mL Normal 0.470-4.680 [facility] Comment on above: Performed By: #### C MP, T4, FT3, TSH, LIPID #### [facility] [address] [place] [address] Dr. Willie Martinez TSH RANGE SEE BELOW Normal [facility] Comment on above: Result Comment: <0.3 4 UIU/ml HYPERTHYROID 0.34-5.60 UIU/ml EUTHYROID >5.60 UIU/ml HYPOTHYROID Performed By: #### C MP, T4, FT3, TSH, LIPID #### [facility] [address] [place] [address] [address] [address] Willie Martinez POINT OF CARE GLUCOSEon Glucose [Mass/Vol] 118 mg/dL Critically high 74-106 T he [facility] Comment on above: Performed By: #### P OCGLUC #### [facility] [address] [id number] Nancy Santos Covid-19 PCR (CVDTB)on SARS-CoV-2 (COVID-19) RNA DEVENDRA+probe Ql (Unsp spec) Not detected Normal NOT DETECTED [facility] Comment on above: Result Comment: This test is not yet approved or cleared by the [place] FDA. When there are no FDA-approved or cleared tests available, and other criteria are met, FDA can make tests available under an emergency access mechanism called an Emergency Use Authorization (EUA). The EUA for this test is supported by the Clinical Assistant of Health and Human Service's (HHS's) declaration [...] SARS-CoV-2. Performed By: #### C VDTBH #### [facility] [address] [place], [place] [id number] Nancy Santos Vital Signs Date Time Vital Sign Value Performing Clinician Syeda webb 08-23-2024 10:25-0400 Body height 172.7 cm Pmh 1 [facility] 08-23-2024 10:25-0400 Body mass index (BMI) [Ratio] 37.4 kg/m2 Pmh 1 [facility] 08-23-2024 10:250400 Body weight 111.58 kg Pmh 1 [facility] 08-17-2024 10:30-0400 Body height 172.7 cm Constanza Morales FILM REPLACEMENT ORDERER-EKG MONITOR TECH Work Phone: [facility] 08-17-2024 10:30-0400 Body mass index (BMI) [Ratio] 38.47 kg/m2 Constanza Morales FILM REPLACEMENT ORDERER-EKG MONITOR TECH Work Phone: [facility] 08-17-2024 10:30-0400 Body weight 114.76 kg Constanza Morales FILM REPLACEMENT ORDERER-EKG MONITOR TECH Work Phone: [facility] 08-17-2024 10:30-0400 Diastolic blood pressure 69 mm[Hg] Constanza Morales FILM REPLACEMENT ORDERER-EKG MONITOR TECH Work Phone: [facility] 08-17-2024 10:30-0400 Heart rate 60 /min Constanza Morales FILM REPLACEMENT ORDERER-EKG MONITOR TECH Work Phone: [facility] 08-17-2024 10:30-0400 Systolic blood pressure 115 mm[Hg] Constanza Morales FILM REPLACEMENT ORDERER-EKG MONITOR TECH Work Phone: [facility] 10-29-2023 11:28-0500 SaO2% (BldA) [Mass fraction] 98 % [facility] Comment on above: Order Comment: Specimen Type: ARTERIAL B LOOD SPECIMENOrdering Facility: [facility] Address: [address] [place] [address] Performed By: #### A LLBG ####[facility] LABCLIA [id number] [address] [place] [facility] 10-29-2023 07:36-0500 SaO2% (BldA) [Mass fraction] 99 % [facility] Comment on above: Order Comment: Specimen Type: ARTERIAL B LOOD SPECIMENOrdering Facility: [facility] Address: [address] [place] [address] Performed By: #### A LLBG ####[facility] LABIA [id number] [address] [place] [id number] [place] 10-29-2023 05:21-0500 SaO2% (BldA) [Mass fraction] 98 % [facility] Comment on above: Order Comment: Specimen Type: ARTERIAL B LOOD SPECIMENOrdering Facility: [facility] Address: [address] [place] [address] Performed By: #### A LLBG ####[facility] LABIA [id number] [address] [place] 10-29-2023 03:16-0500 SaO2% (BldA) [Mass fraction] 99 % [facility] Comment on above: Order Comment: Specimen Type: ARTERIAL B LOOD SPECIMENOrdering Facility: [facility] Address: [address] [place] [address] Performed By: #### A LLBG ####[facility] [id number] [address] [place] 10-29-2023 00:41-0500 SaO2% (BldA) [Mass fraction] 99 % [facility] Comment on above: Order Comment: Specimen Type: ARTERIAL B LOOD SPECIMENOrdering Facility: [facility] Address: [address] [place] [address] Performed By: #### A LLBG ####[facility] LABIA [id number] [address] [place] [id number] [place] 10-28-2023 23:09-0500 SaO2% (BldA) [Mass fraction] 99 % [facility] Comment on above: Order Comment: Specimen Type: ARTERIAL B LOOD SPECIMENOrdering Facility: [facility] Address: [address] [place] [address] Performed By: #### A LLBG ####[facility] LABIA [id number] [address] [place] 10-28-2023 21:47-0500 SaO2% (BldA) [Mass fraction] 99 % [facility] Comment on above: Order Comment: Specimen Type: ARTERIAL B LOOD SPECIMENOrdering Facility: [facility] Address: [address] [place] [address] Performed By: #### A LLBG ####[facility] LABIA [id number] [place] [id number] [place] 10-28-2023 20:20-0500 SaO2% (BldA) [Mass fraction] 97 % [facility] Comment on above: Order Comment: Specimen Type: ARTERIAL B LOOD SPECIMENOrdering Facility: [facility] Address: [address] [place] [address] Performed By: #### A LLBG ####[facility] LABIA [id number] [address] [place] 10-28-2023 19:36-0500 SaO2% (BldA) [Mass fraction] 100 % [facility] Comment on above: Order Comment: Specimen Type: ARTERIAL B LOOD SPECIMENOrdering Facility: [facility] Address: [address] [place] [address] Performed By: #### A LLBG ####[facility] LABCLIA [id number] [place] [id number] [place] 10-28-2023 19:01-0500 SaO2% (BldA) [Mass fraction] 100 % [facility] Comment on above: Order Comment: Specimen Type: ARTERIAL B LOOD SPECIMENOrdering Facility: [facility] Address: [address] [place] [address] Performed By: #### A LLBG ####[facility] LABIA [id number] [address] [place] 10-28-2023 18:31-0500 SaO2% (BldA) [Mass fraction] 100 % [facility] Comment on above: Order Comment: Specimen Type: ARTERIAL B LOOD SPECIMENOrdering Facility: [facility] Address: [address] [place] [address] Performed By: #### A LLBG ####[facility] LABCLIA [id number] [place] [id number] [place] 10-28-2023 17:36-0500 SaO2% (BldA) [Mass fraction] 100 % [facility] Comment on above: Order Comment: Specimen Type: ARTERIAL B LOOD SPECIMENOrdering Facility: [facility] Address: [address] [place] [address] Performed By: #### A LLBG ####[facility] LABIA [id number] [address] [facility] 10-28-2023 16:44-0500 SaO2% (BldA) [Mass fraction] 100 % [facility] Comment on above: Order Comment: Specimen Type: ARTERIAL B LOOD SPECIMENOrdering Facility: [facility] Address: [address] [place] [address] Performed By: #### A LLBG ####[facility] LABIA [id number] [place] [id number] [place] 10-28-2023 14:46-0500 SaO2% (BldA) [Mass fraction] 98 % [facility] Comment on above: Order Comment: Specimen Type: ARTERIAL B LOOD SPECIMENOrdering Facility: [facility] Address: [address] [place] [address] Performed By: #### A LLBG ####[facility] LABCLIA [id number] [place] [id number] [place] 10-27-2023 09:26-0500 Diastolic blood pressure 80 mm[Hg] Rosalia Trinidad MD Work Phone: [facility] 10-27-2023 09:26-0500 Systolic blood pressure 118 mm[Hg] Rosalia babb MD Work Phone: [facility] 10-27-2023 09:25-0500 Body height 172.7 cm Rosalia Trinidad MD Work Phone: [facility] 10-27-2023 09:25-0500 Body weight 102.51 kg Rosalia Trinidad MD Work Phone: [facility] 10-27-2023 09:25-0500 Heart rate 86 /min Rosalia Trinidad MD Work Phone: [facility] 10-27-2023 09:25-0500 Respiratory rate 14 /min Rosalia Trinidad MD Work Phone: [facility] 10-27-2023 09:25-0500 SaO2% (BldA) [Mass fraction] 95 % Rosalia Trinidad MD Work Phone: [facility] Encounters Encounter Date Encounter Type Care Provider Facility Start: 09-01-2024 End: 09-01-2024 Telephone encounter Bridget Gtz CMA [facility] General Surgery Start: 08-29-2024 End: 08-29-2024 Evaluation and management of inpatient SHARITA Reyes BUSTOSSANDRAAndrew [facility] Start: 08-23-2024 End: 08-23-2024 ambulatory [facility] Pat Phone Call Provider 1 [facility] - Pre Admit Start: 08-23-2024 End: 08-23-2024 Telephone encounter Rosalia Trinidad MD Work Phone: Cardiology Comment on above: Medication Question (Can pt stop taking his 81 mg of baby aspirin before his colonoscopy on Wednesday 08/29?) Start: 08-23-2024 End: 08-23-2024 ambulatory EMMANUEL CRANE [facility] Start: 08-17-2024 End: 08-17-2024 Office outpatient new 30 minutes Constanza Morales FILM REPLACEMENT ORDERER-EKG MONITOR TECH Work Phone: [facility] Comment on above: Anemia, unspecified type (Primary Dx); Loose stools Start: 08-17-2024 End: 08-17-2024 ambulatory [facility] Darrius MORALES [facility] Start: 06-14-2024 End: 06-14-2024 ambulatory ROSALIA TRINIDAD Facility:[facility] Start: 06-14-2024 End: 06-14-2024 Patient encounter procedure Rosalia Trinidad MD Work Phone: Cardiology Comment on above: S/P CABG x 3 (Primar y Dx); Obesity (BMI 30.0-34.9); Hypertension goal BP (blood pressure) < 140/80; Controlled type 2 diabetes mellitus without complication, without long-term current use of insulin (HCC); Coronary stent restenosis, subsequent encounter Start: 06-14-2024 End: 06-14-2024 ambulatory ROSALIA TRINIDAD Facility:[facility] Start: 05-27-2024 Telephone encounter Rosalia frost MD Work Phone: Cardiology Comment on above: Appointment (resched uled) Start: 05-12-2024 Orders Only Rosalia rizvi MD Work Phone: Cardiology Comment on above: S/P CABG x 3 (Primar y Dx); Controlled type 2 diabetes mellitus without complication, without long-term current use of insulin (HCC); Primary hypertension Start: 03-21-2024 End: 03-23-2024 ambulatory [facility] Start: 03-17-2024 End: 03-23-2024 ambulatory [facility] Start: 03-16-2024 End: 03-23-2024 ambulatory [facility] Start: 03-14-2024 End: 03-23-2024 ambulatory [facility] Start: 03-09-2024 End: 03-23-2024 ambulatory EMMANUEL [facility] Start: 03-09-2024 End: 03-23-2024 ambulatory EMMANUEL Kimber [facility] Start: 03-07-2024 End: 03-07-2024 ambulatory HUTCHINSON Kimber [facility] Start: 03-07-2024 End: 03-23-2024 ambulatory HUTCHINSON Kimber [facility] Start: 03-03-2024 End: 03-03-2024 ambulatory EMMANUEL Kimber [facility] Start: 03-02-2024 End: 03-23-2024 ambulatory [facility] Start: 03-02-2024 End: 03-23-2024 ambulatory HUTCHINSON Kimber [facility] Start: 02-29-2024 End: 03-23-2024 ambulatory [facility] Start: 02-25-2024 End: 02-25-2024 ambulatory [facility] Start: 02-24-2024 End: 03-23-2024 ambulatory [facility] Start: 02-24-2024 End: 03-23-2024 ambulatory [facility] Start: 02-22-2024 End: 02-22-2024 ambulatory [facility] Start: 02-22-2024 End: 03-23-2024 ambulatory [facility] Start: 02-18-2024 End: 02-18-2024 Patient encounter procedure Pm Cardiac Rehab Exercise 1 [facility] - Cardiac Rehab Start: 02-18-2024 End: 02-18-2024 ambulatory [facility] Start: 02-17-2024 End: 02-17-2024 Patient encounter procedure Pm Cardiac Rehab Exercise 1 [facility] - Cardiac Rehab Start: 02-17-2024 End: 02-17-2024 ambulatory [facility] Start: 02-15-2024 End: 02-15-2024 Patient encounter procedure [facility] Cardiac Rehab Exercise 1 [facility] - Cardiac Rehab Start: 02-15-2024 End: 02-15-2024 ambulatory [facility] Start: 02-11-2024 End: 02-11-2024 Patient encounter procedure Pm Cardiac Rehab Exercise 1 [facility] - Cardiac Rehab Start: 02-11-2024 End: 02-11-2024 ambulatory EMMANUEL M [facility] Start: 02-10-2024 End: 02-22-2024 ambulatory EMMANUEL Kimber [facility] Start: 02-08-2024 End: 02-08-2024 Patient encounter procedure [facility] Cardiac Rehab Exercise 1 [facility] - Cardiac Rehab Start: 02-08-2024 End: 02-08-2024 ambulatory [facility] Start: 02-04-2024 End: 02-04-2024 ambulatory HUTCHINSON Kimber [facility] Start: 02-03-2024 End: 02-03-2024 ambulatory [facility] Start: 02-03-2024 End: 02-03-2024 Patient encounter procedure [facility] Cardiac Rehab Therapist 1 [facility] - Cardiac Rehab Start: 02-01-2024 End: 02-01-2024 Patient encounter procedure [facility] Cardiac Rehab Therapist 1 [facility] - Cardiac Rehab Start: 02-01-2024 End: 02-01-2024 ambulatory [facility] Start: 01-28-2024 End: 01-28-2024 Patient encounter procedure Pm Cardiac Rehab Therapist 1 [facility] Cardiac Rehab Start: 01-28-2024 End: 01-28-2024 ambulatory [facility] Start: 01-27-2024 End: 01-27-2024 Patient encounter procedure Pm Cardiac Rehab Therapist 1 [facility] Start: 01-27-2024 End: 01-27-2024 ambulatory EMMANUEL M [facility] Start: 01-25-2024 End: 01-25-2024 ambulatory EMMANUEL M [facility] Start: 01-21-2024 End: 01-21-2024 Patient encounter procedure [facility] Cardiac Rehab Therapist 1 [facility] - Cardiac Rehab Start: 01-21-2024 End: 01-21-2024 ambulatory HUTCHINSON Kimber [facility] Start: 01-20-2024 End: 01-20-2024 Patient encounter procedure Pm Cardiac Rehab Therapist 1 [facility] Cardiac [facility] Start: 01-20-2024 End: 01-20-2024 ambulatory HUTCHINSON Kimber [facility] Start: 01-18-2024 End: 01-18-2024 ambulatory [facility] Start: 01-14-2024 End: 01-14-2024 Patient encounter procedure [facility] Cardiac Rehab Therapist 1 [facility] Cardiac Rehab Start: 01-14-2024 End: 01-14-2024 ambulatory [facility] Start: 01-13-2024 End: 01-13-2024 ambulatory HUTCHINSON Kimber [facility] Start: 01-11-2024 End: 01-11-2024 Patient encounter procedure [facility] Cardiac Rehab Therapist 1 [facility] - Cardiac Rehab Start: 01-11-2024 End: 01-11-2024 ambulatory [facility] Start: 01-07-2024 End: 01-07-2024 ambulatory [facility] Start: 01-06-2024 End: 01-06-2024 Patient encounter procedure Pm Cardiac Rehab Therapist 1 [facility] - Cardiac Rehab Start: 01-06-2024 End: 01-06-2024 ambulatory [facility] Start: 01-05-2024 ambulatory Rosalia rizvi MD Work Phone: Cardiology Comment on above: Return to Work Date Start: 01-05-2024 E-mail encounter fro m caregiver Rosalia Trinidad MD Work Phone: [facility] Start: 01-04-2024 Documentation procedure Jossy Ruggiero QUINCY Work Phone: [facility] Start: 01-04-2024 End: 01-04-2024 Patient encounter procedure [facility] Cardiac Rehab Therapist 1 [facility] Cardiac Rehab Start: 01-04-2024 End: 01-04-2024 ambulatory [facility] Start: 12-31-2023 End: 12-31-2023 Patient encounter procedure [facility] Cardiac Rehab Therapist 1 [facility] Start: 12-31-2023 End: 12-31-2023 ambulatory EMMANUEL Quiroga [facility] Start: 12-30-2023 Telephone encounter Rosalia frost MD Work Phone: Cardiology Comment on above: RTW Date Start: 12-30-2023 End: 12-30-2023 Patient encounter procedure [facility] Cardiac Rehab Therapist 1 [facility] Cardiac [facility] Start: 12-30-2023 End: 12-30-2023 ambulatory EMMANUEL Quiroga Sherly [facility] Start: 12-28-2023 End: 12-28-2023 Patient encounter procedure [facility] Cardiac Rehab Therapist 1 [facility] Cardiac [facility] Start: 12-28-2023 End: 12-28-2023 ambulatory EMMANUEL M [facility] Start: 12-24-2023 End: 12-24-2023 Patient encounter procedure [facility] Cardiac Rehab Therapist 1 [facility] Card[facility] Start: 12-24-2023 End: 12-24-2023 ambulatory EMMANUEL Quiroga [facility] Start: 12-23-2023 End: 12-23-2023 Patient encounter procedure [facility] Cardiac Rehab Therapist 1 [facility] Start: 12-23-2023 End: 12-23-2023 ambulatory HUTCHINSON Kimber [facility] Start: 12-21-2023 End: 12-21-2023 Patient encounter procedure [facility] Cardiac Rehab Therapist 1 [facility] Start: 12-21-2023 End: 12-21-2023 ambulatory [facility] Start: 12-17-2023 End: 12-17-2023 Patient encounter procedure [facility] Cardiac Rehab Therapist 1 [facility] Cardiac Rehab Start: 12-17-2023 End: 12-17-2023 ambulatory [facility] Start: 12-16-2023 End: 12-16-2023 Patient encounter procedure [facility] Cardiac Rehab Therapist 1 [facility] Cardiac [facility] Start: 12-16-2023 End: 12-16-2023 ambulatory [facility] Start: 12-14-2023 End: 12-14-2023 Patient encounter procedure [facility] Cardiac Rehab Therapist 1 [facility] Cardiac [facility] Start: 12-14-2023 End: 12-14-2023 ambulatory [facility] Start: 12-11-2023 End: 12-11-2023 ambulatory [facility] Start: 12-08-2023 End: 12-08-2023 [facility] Start: 12-04-2023 End: 12-04-2023 ambulatory [facility] Start: 12-04-2023 End: 12-04-2023 ambulatory ROSALIA C SIMPFENDORFER Facility:[facility] Start: 11-10-2023 End: 11-10-2023 ambulatory COCO BATISTA Facility:[facility] Start: 11-03-2023 Telephone encounter Valentina Duffy [facility] Comment on above: Follow Up Phone Call ( follow up call all clear. /) Start: 10-30-2023 Telephone encounter Rosalia frost MD Work Phone: Cardiology Comment on above: Patient Update Start: 10-28-2023 End: 11-02-2023 Evaluation and management of inpatient COCO Quiroga KINGSLEY Facility:[facility] Start: 10-28-2023 End: 10-28-2023 ambulatory COCO BATISTA Facility:[facility] Start: 10-27-2023 End: 10-27-2023 ambulatory COCO BATISTA Facility:[facility] Start: 10-27-2023 End: 10-27-2023 Admission to same day surgery center Anesthesia Clearance Work Phone: [facility] Work Phone: Start: 10-27-2023 End: 10-27-2023 Patient encounter procedure Anesthesia Clearance Work Phone: Cardiothoracic Comment on above: Encounter for preope rative anesthesiology assessment for cardiac surgery (Primary Dx) Pre-op exam (Primary Dx); Preop testing Start: 10-27-2023 End: 10-27-2023 Preprocedural examination done [facility] Work Phone: [facility] Start: 10-27-2023 End: 10-27-2023 ambulatory ANAKHANNA Kimber BATISTA Facility:[facility] Start: 10-27-2023 End: 10-27-2023 ambulatory EMMANUEL Quiroga Sherly Facility:[facility] Start: 10-27-2023 End: 10-27-2023 Patient encounter status Rosalia Trinidad MD Work Phone: [facility] Start: 10-27-2023 End: 10-27-2023 Subsequent hospital visit by physician Xr Chest Main J1 Work Phone: Radiology Comment on above: 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] Start: 10-27-2023 End: 10-27-2023 ambulatory ANACLEMENCIA Quiroga KINGSLEY Facility:[facility] Start: 10-27-2023 Encounter for preprocedural cardiovascular examination [facility] Start: 10-27-2023 End: 10-27-2023 ambulatory ROSALIA TRINIDAD Facility:[facility] Start: 10-27-2023 End: 10-27-2023 Patient encounter procedure Rosalia Trinidad MD Work Phone: Cardiology Comment on above: 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) (Primary Dx); Primary hypertension; Controlled type 2 diabetes mellitus without complication, without long-term current use of insulin (HCC); Obesity (BMI 30.0-34.9); Coronary stent restenosis, subsequent encounter Start: 10-26-2023 End: 10-30-2023 Patient encounter status Rosalia Trinidad MD Work Phone: [facility] Start: 10-05-2023 Patient encounter status Coco Batista MD Work Phone: [facility] Start: 10-05-2023 Telephone encounter Coco Batista MD Work Phone: Cardiothoracic Comment on above: Insurance Inquiry Referral Information ; Cardiac Preop Checklist Start: 09-29-2023 ambulatory [facility] Start: 09-17-2023 End: 09-18-2023 ambulatory [facility] Start: 09-17-2023 End: 09-17-2023 ambulatory [facility] Start: 08-25-2023 ambulatory [facility] Start: 08-24-2023 End: 08-25-2023 ambulatory [facility] Start: 08-24-2023 End: 08-24-2023 Encounter for preprocedural cardiovascular examination [facility] Start: 08-24-2023 End: 08-24-2023 ambulatory [facility] Start: 07-28-2023 End: 07-29-2023 ambulatory [facility] Start: 07-28-2023 ambulatory [facility] Start: 07-02-2023 End: 07-03-2023 ambulatory [facility] Start: 07-02-2023 End: 07-02-2023 ambulatory [facility] Start: 06-12-2023 End: 06-12-2023 ambulatory [facility] Start: 01-18-2022 End: 01-18-[address] EMMANUEL CRANE Facility:[facility] Start: 01-17-2022 Encounter for genera l adult medical examination without abnormal findings DR EMMANUEL CRANE [facility] Start: 01-16-2022 End: 01-17-[address] EMMANUEL CRANE Facility:[facility] Start: 01-16-2022 End: 01-17-2022 Encounter for general adult medical examination without abnormal findings DR EMMANUEL CRANE Facility:[facility] Start: 02-27-2021 Encounter for preprocedural laboratory examination DR SHARITA SIMS [facility] Start: 02-27-2021 End: 02-27-[address] EMMANUEL CRANE Facility:[facility] Start: 02-22-2021 End: 02-22-[address] SHARITA SIMS Facility:[facility] Start: 02-22-2021 End: 02-22-2021 Encounter for preprocedural laboratory examination DR SHARITA SIMS Facility:[facility] Procedures Date Procedure Procedure Detail Performing Clinician Start: 08-29-2024 Colonoscopy Bridget Cruz ia ESL TUTOR Start: 12-31-2023 Gluc bld gluc mntr d [...] Comment: Speci men Type: BLOOD SPECIMENOrdering Facility: [facility] Address: [address] [place] [address] Performed By: #### T [id number] ####CC [facility] [id number] [address] [place] Start: 01-16-[address] BENJAMIN CRANE Comment on above: Performed By: #### P [facility] #### [facility] [address] [place] [address] Dr. 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 3 Rosalia Trinidad MD Work Phone: Plan of Treatment Date Care Activity Detail Author Start: 08-29-2029 Screening for malignant neoplasm of colon Colonoscopy [facility] Start: 01-16-2027 Prostate Cancer Screening Discussion Prostate Cancer Screening Discussion [facility] Start: 01-16-2027 Prostate specific antigen measurement Prostate Cancer Screening Discussion [facility] Start: 08-30-2025 Pneumococcal Vaccine: 65+ (3 - PPSV23 or PCV20) Pneumococcal Vaccine: 65+ (3 - PPSV23 or PCV20) [facility] Start: 08-30-2025 Pneumococcal Vaccine: 65+ (3 of 3 - PPSV23 or PCV20) Pneumococcal Vaccine: 65+ (3 of 3 - PPSV23 or PCV20) [facility] Start: 08-29-2025 Adult BMI Screening Adult BMI Screening [facility] Start: 08-29-2025 Tobacco Screening Tobacco Screening [facility] Start: 08-23-2025 Adult BMI Screening Adult BMI Screening [facility] Start: 08-23-2025 Tobacco Screening Tobacco Screening [facility] Start: 08-17-2025 Adult BMI Screening Adult BMI Screening [facility] Start: 08-17-2025 Tobacco Screening Tobacco Screening [facility] Start: 06-14-2025 Hepatitis B surface antibody level LDL Cholesterol [facility] Start: 12-15-2024 Hemoglobin A1c measurement HbA1C [facility] Start: 12-08-2024 BP Controlled (<130/80) BP Controlled (<130/80) [facility] Start: 10-31-2024 Hepatitis B surface antibody level LDL Cholesterol [facility] Start: 08-29-2024 End: 08-29-2024 Admission to same day surgery center 08/29/2024 10:15 AM EDT - 08/29/2024 11:00 AM EDT Surgery [facility] Surgery [address] [place] [address] [place] [address] [place] [address] ESOPHAGOGASTRODUODENOSCOPY DIAGNOSTIC [84587 (CPT )] [facility] Surgery Comment on above: ESOPHAGOGASTRODUODENOSCOPY DIAGNOSTIC [4 4027 (CPT )] Start: 08-29-2024 End: 08-29-2024 Anesthesia consultation 08/29/2024 10:15 AM EDT Anesthesia Event [facility] Surgery [address] [place] [id number] Lior Shine, DO [address] [place] [id number] [facility] Start: 08-29-2024 End: 08-29-2024 Colonoscopy flx dx w/collj spec when pfrmd COLONOSCOPY DIAGNOSTIC / SCREENING anemia 08/29/2024 10:15 AM EDT [facility] Start: 08-29-2024 End: 08-29-2024 Esophagogastroduodenoscopy transoral diagnostic ESOPHAGOGASTRODUODENOSCOPY DIAGNOSTIC anemia 08/29/2024 10:15 AM EDT [facility] Start: 08-29-2024 Subsequent hospital visit by physician 08/29/2024 10:15 AM EDT Hospital Encounter [facility] [address] [place] [address] Sharita Sims, [address] [place], [place] [id number] [facility] Start: 08-23-2024 End: 08-23-2024 ambulatory 08/23/2024 2:40 PM EDT Suppo rt Visit [facility] - Pre Admit [address] [place] [id number] [facility] - Pre Admit Start: 07-24-2024 Covid-19 Vaccine ( season) Covid-19 Vaccine ( season) [facility] Start: 07-24-2024 Influenza [facility] [facility] Start: 06-01-2024 End: 06-01-2024 Patient encounter procedure 06/01/2024 10:30 AM EDT Of fice Visit Cardiology [address] [place] [address] Rosalia Trinidad MD [address] [place] [address] Clinician, Interventional [address] [place] [address] DX: Controlled type 2 diabetes mellitus without [...] (HCC) Primary hypertension Expected: 05/12/2024, Expires: 08/11/2024 [facility] Comment on above: Expected: 05/12/2024, Expires: 4 Start: 05-12-2024 End: 08-11-2024 Hemoglobin A1c in Blood HEMOGLOBIN A1C Lab Routine S /P CABG x 3 Controlled type 2 diabetes mellitus without complication, without long-term current use of insulin (HCC) Primary hypertension Expected: 05/12/2024, Expires: 08/11/2024 [facility] Comment on above: Expected: 05/12/2024, Expires: 4 Start: 05-12-2024 End: 08-11-2024 Lipid 1996 panel - Serum or Plasma LIPID PANEL BASIC Lab Routine S/P CABG x 3 Controlled type 2 diabetes mellitus without complication, without long-term current use of insulin (HCC) Primary hypertension Expected: 05/12/2024, Expires: 08/11/2024 [facility] Comment on above: Expected: 05/12/2024, Expires: Start: 04-27-2024 Hemoglobin A1c measurement HbA1C [facility] Start: 04-27-2024 Hemoglobin A1c/Hemoglobin.total in Blood HbA1C [facility] Start: 03-21-2024 End: 03-21-2024 Clinical Support 03/21/2024 12:45 PM EDT Clinical Support [facility] [address] [place] [address] [facility] Start: 03-17-2024 End: 03-17-2024 Clinical Support 03/17/2024 12:45 PM EDT Clinical Support [facility] [address] [place] [address] [facility] Start: 03-16-2024 End: 03-16-2024 Clinical Support 03/16/2024 12:45 PM EDT Clinical Support [facility] [address] [place] [address] [facility] Start: 03-14-2024 End: 03-14-2024 Patient encounter procedure [facility] Start: 03-10-2024 End: 03-10-2024 Patient encounter procedure [facility] Start: 03-09-2024 End: 03-09-2024 Patient encounter procedure [facility] Start: 03-07-2024 End: 03-07-2024 Patient encounter procedure [facility] Start: 03-03-2024 End: 03-03-2024 Patient encounter procedure [facility] Start: 03-02-2024 End: 03-02-2024 Patient encounter procedure [facility] Start: 02-29-2024 End: 02-29-2024 Patient encounter procedure [facility] Start: 02-25-2024 End: 02-25-2024 Patient encounter procedure [facility] Start: 02-24-2024 End: 02-24-2024 Patient encounter procedure [facility] Start: 02-22-2024 End: 02-22-2024 Patient encounter procedure [facility] Start: 02-18-2024 End: 02-18-2024 Patient encounter procedure 02/18/2024 1:00 PM EDT Off ice Visit [facility] [address] [place] [address] [facility] Start: 02-17-2024 End: 02-17-2024 Patient encounter procedure 02/17/2024 1:00 PM EDT Off ice Visit [facility] [address] [place] [address] [facility] Start: 02-15-2024 End: 02-15-2024 Patient encounter procedure 02/15/2024 1:00 PM EDT Off ice Visit [facility] [address] [place] [address] [facility] Start: 02-11-2024 End: 02-11-2024 Patient encounter procedure 02/11/2024 1:00 PM EDT Off ice Visit [facility] [address] [place] [address] [facility] Start: 02-10-2024 End: 02-10-2024 Patient encounter procedure 02/10/2024 1:00 PM EDT Off ice Visit [facility] [address] [place] [address] [facility] Start: 02-08-2024 End: 02-08-2024 Patient encounter procedure 02/08/2024 1:00 PM EDT Off ice Visit [facility] [address] [place] [address] [facility] Start: 02-04-2024 End: 02-04-2024 Patient encounter procedure 02/04/2024 1:00 PM EDT Off ice Visit [facility] [address] [place] [address] [facility] Start: 02-03-2024 End: 02-03-2024 Patient encounter procedure 02/03/2024 1:00 PM EDT Off ice Visit [facility] [address] [place] [address] [facility] Start: 02-01-2024 End: 02-01-2024 Patient encounter procedure 02/01/2024 1:00 PM EDT Off ice Visit [facility] [address] [place] [address] [facility] Start: 01-28-2024 End: 01-28-2024 Patient encounter procedure 01/28/2024 1:00 PM EST Off ice Visit [facility] [address] [place] [address] [facility] Start: 01-27-2024 End: 01-27-2024 Patient encounter procedure 01/27/2024 1:00 PM EST Off ice Visit [facility] [address] [place] [address] [facility] Start: 01-25-2024 End: 01-25-2024 Patient encounter procedure 01/25/2024 1:00 PM EST Off ice Visit [facility] [address] [place] [address] [facility] Start: 01-21-2024 End: 01-21-2024 Patient encounter procedure 01/21/2024 1:00 PM EST Off ice Visit [facility] [address] [place] [address] [facility] Start: 01-20-2024 End: 01-20-2024 Patient encounter procedure 01/20/2024 1:00 PM EST Off ice Visit [facility] [address] [place] [address] [facility] Start: 01-18-2024 End: 01-18-2024 Patient encounter procedure 01/18/2024 1:00 PM EST Off ice Visit [facility] [address] [place] [address] [facility] Start: 01-14-2024 End: 01-14-2024 Patient encounter procedure 01/14/2024 1:00 PM EST Off ice Visit [facility] [address] [place] [address] [facility] Start: 01-13-2024 End: 01-13-2024 Patient encounter procedure 01/13/2024 1:00 PM EST Off ice Visit [facility] [address] [place] [address] [facility] Start: 01-11-2024 End: 01-11-2024 Patient encounter procedure 01/11/2024 1:00 PM EST Off ice Visit [facility] [address] [place] [address] [facility] Start: 01-07-2024 End: 01-07-2024 Patient encounter procedure 01/07/2024 1:00 PM EST Off ice Visit [facility] [address] [place] [address] [facility] Start: 01-06-2024 End: 01-06-2024 Patient encounter procedure 01/06/2024 1:00 PM EST Off ice Visit [facility] [address] [place] [address] [facility] Start: 01-04-2024 End: 01-04-2024 Patient encounter procedure 01/04/2024 1:00 PM EST Off ice Visit [facility] [address] [place] [address] [facility] Start: 12-31-2023 End: 12-31-2023 Patient encounter procedure 12/31/2023 1:00 PM EST Off ice Visit [facility] [address] [place] [address] [facility] Start: 12-30-2023 End: 12-30-2023 Patient encounter procedure 12/30/2023 1:00 PM EST Off ice Visit [facility] [address] [place] [address] [facility] Start: 12-28-2023 End: 12-28-2023 Patient encounter procedure 12/28/2023 1:00 PM EST Off ice Visit [facility] [address] [place] [address] [facility] Start: 12-24-2023 End: 12-24-2023 Patient encounter procedure 12/24/2023 1:00 PM EST Off ice Visit [facility] [address] [place] [address] [facility] Start: 12-23-2023 End: 12-23-2023 Patient encounter procedure 12/23/2023 1:00 PM EST Off ice Visit [facility] [address] [place] [address] [facility] Start: 12-21-2023 End: 12-21-2023 Patient encounter procedure 12/21/2023 1:00 PM EST Off ice Visit [facility] [address] [place] [address] [facility] Start: 12-17-2023 End: 12-17-2023 Patient encounter procedure 12/17/2023 1:00 PM EST Off ice Visit [facility] [address] [place] [address] [facility] Start: 12-16-2023 End: 12-16-2023 Patient encounter procedure 12/16/2023 1:00 PM EST Off ice Visit [facility] [address] [place] [address] [facility] Start: 11-23-2023 Advance Directive Discussion Advance Directive Discussion [facility] Start: 11-23-2023 Behavioral Health Screening Behavioral Health Screening [facility] Start: 11-23-2023 Depression Assessment Depression Assessment [facility] Start: 10-08-2023 End: 01-07-2024 aPTT in Platelet poor plasma by Coagulation assay ACTIVATED PTT Lab Routine 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 (HCC) Pre-operative cardiovascular examination Atherosclerosis of [place] coronary artery of sh[place]ann[place] heart with stable angina pectoris (HCC) Expected: 10/08/2023 (Approximate), Expires: 01/07/2024 [facility] Work Phone: Comment on above: Expected: 10/08/2023 (Approximate), Expi res: 01/07/2024 Start: 10-08-2023 End: 01-07-2024 CBC W Auto Differential panel - Blood CBC + DIFF Lab Routine 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 (HCC) Pre-operative cardiovascular examination Atherosclerosis of [place] coronary artery of shosh[place]ann[place] heart with stable angina pectoris (HCC) Expected: 10/08/2023, Expires: 01/07/2024 [facility] Work Phone: Comment on above: Expected: 10/08/2023, Expires: 4 Start: 10-08-2023 End: 01-07-2024 Comprehensive metabolic 2000 panel - Serum or Plasma COMP METABOLIC PANEL Lab Routine 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 (HCC) Pre-operative cardiovascular examination Atherosclerosis of [place] coronary artery of shosh[place]ann[place] heart with stable angina pectoris (HCC) Expected: 10/08/2023, Expires: 01/07/2024 [facility] Work Phone: Comment on above: Expected: 10/08/2023, Expires: 4 Start: 10-08-2023 End: 01-07-2024 CONFIRM BLOOD TYPE CONFIRM BLOOD TYPE Blood Ban k Routine 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 (HCC) Pre-operative cardiovascular examination Atherosclerosis of [place] coronary artery of shosh[place]ann[place] heart with stable angina pectoris (HCC) Expected: 10/08/2023, Expires: 01/07/2024 [facility] Work Phone: Comment on above: Expected: 10/08/2023, Expires: 4 Start: 10-08-2023 End: 01-07-2024 Hemoglobin A1c in Blood HGB A1C Lab Routine 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 (HCC) Pre-operative cardiovascular examination Atherosclerosis of [place] coronary artery of shosh[place]ann[place] heart with stable angina pectoris (HCC) Expected: 10/08/2023 (Approximate), Expires: 01/07/2024 [facility] Work Phone: Comment on above: Expected: 10/08/2023 (Approximate), Expi res: 01/07/2024 Start: 10-08-2023 End: 01-07-2024 Lactate dehydrogenase [Enzymatic activity/volume] in Serum or Plasma LD LACTATE DEHYDRO Lab Routine 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 (HCC) Pre-operative cardiovascular examination Atherosclerosis of [place] coronary artery of shosh[place]ann[place] heart with stable angina pectoris (HCC) Expected: 10/08/2023, Expires: 01/07/2024 [facility] Work Phone: Comment on above: Expected: 10/08/2023, Expires: 4 Start: 10-08-2023 End: 01-07-2024 PT panel - Platelet poor plasma by Coagulation assay PROTHROMBIN TIME/PT Lab Routine 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 (HCC) Pre-operative cardiovascular examination Atherosclerosis of [place] coronary artery of shosh[place]bann[place] heart with stable angina pectoris (HCC) Expected: 10/08/2023 (Approximate), Expires: 01/07/2024 [facility] Work Phone: Comment on above: Expected: 10/08/2023 (Approximate), Expi res: 01/07/2024 Start: 10-08-2023 End: 01-07-2024 TYPE AND SCREEN,30 DAY TYPE AND SCREEN,30 DAY Blood Bank Routine 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 (HCC) Pre-operative cardiovascular examination Atherosclerosis of [place] coronary artery of shosh[place]ann[place] heart with stable angina pectoris (HCC) Expected: 10/08/2023, Expires: 01/07/2024 [facility] Work Phone: Comment on above: Expected: 10/08/2023, Expires: 4 Start: 10-08-2023 End: 01-07-2024 URINALYSIS, DIPSTICK ONLY URINALYSIS, DIPSTICK ONLY La b Routine 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 (HCC) Pre-operative cardiovascular examination Atherosclerosis of [place] coronary artery of shosh[place]ann[place] heart with stable angina pectoris (HCC) Expected: 10/08/2023, Expires: 01/07/2024 [facility] Work Phone: Comment on above: Expected: 10/08/2023, Expires: 4 Start: 07-24-2023 Covid-19 Vaccine () Covid-19 Vaccine ( season) [facility] Start: 07-24-2023 Influenza vaccination [facility] Start: 05-01-2023 Adult BMI Screening Adult BMI Screening [facility] Start: 05-01-2023 Tobacco Screening Tobacco Screening [facility] Start: 11-23-2022 Advance Directive Discussion Advance Directive Discussion Cl [facility] Start: 11-23-2022 Depression Assessment Depression Assessment [facility] Start: 2022 Fall Risk Screening Fall Risk Screening [facility] Start: 2017 RSV Vaccine (1 - 1-dose 60+ series) RSV Vaccine (1 - 1-dose 60+ series) [facility] Start: 2017 RSV Vaccine (1 - Risk 60-74 years 1-dose series) RSV Vaccine (1 - Risk 60-74 years 1-dose series) [facility] Start: 2007 Administration of varicella zoster vaccine Zoster (Shingles) Vaccine (1 of 2) [facility] Start: 2007 Shingrix Vaccine (1 of 2) Shingrix Vaccine (1 of 2) [facility] Start: 2002 Cologuard (FIT-DNA) Cologuard (FIT-DNA) [facility] Start: 2002 Colonoscopy Colonoscopy [facility] Start: 2002 Colorectal Cancer Screening Colorectal Cancer Screening [facility] Start: [address] Colonography [facility] Start: 2002 Fecal Occult Blood Fecal Occult Blood [facility] Start: 2002 Screening for malignant neoplasm of colon [facility] Start: 2002 Sigmoidoscopy Sigmoidoscopy [facility] Start: 1976 DTaP,Tdap and Td Vaccines (1 - Tdap) DTaP,Tdap and Td Vaccines (1 - Tdap) [facility] Start: 1976 Urine microalbumin profile DTaP,Tdap,Td Vaccine (1 - Tdap) [facility] Start: 1975 Adult BMI Follow Up Plan Adult BMI Follow Up Plan [facility] Start: 1975 Annual PCP Team Chronic Disease Visit Annual PCP Team Chronic Disease Visit [facility] Start: 1975 Anxiety Screening Anxiety Screening [facility] Start: 1975 BP Controlled (<130/80) BP Controlled (<130/80) [facility] Start: 1975 Depression Screening Depression Screening [facility] Start: 1975 Hepatitis B surface antibody level LDL Cholesterol [facility] Start: 1975 Hepatitis C Screening Hepatitis C Screening [facility] Start: 1975 Hepatitis C screening Hepatitis C Screening [facility] Start: 1969 Depression Screening Depression Screening [facility] Start: 1967 3 comp foot exam completed Diabetic Foot Exam [facility] Start: 1967 Diabetic foot examination Diabetic Foot Exam [facility] Start: 1967 Glaucoma screening Dilated Retinal Exam [facility] Start: 1967 Hepatitis B screening Urine Albumin:Creatinine Ratio [facility] Start: 1967 Hepatitis C antibody, confirmatory test Dilated Retinal Exam [facility] Start: 1957 Covid-19 Vaccine (#1) Covid-19 Vaccine (#1) [facility] Start: 1957 Medicare Annual Wellness Visit Medicare Annual Wellness Visi t [facility] Cardiopulmonary rehabilitation C ardiopulmonary rehabilitation Cardiac Services [...] COMPLETE ECG Routine 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 (HCC) Pre-operative cardiovascular examination Atherosclerosis of [place] coronary artery of shosh[place]bann[place] heart with stable angina pectoris (HCC) 1 Occurrences starting 10/08/2023 until 10/08/2024 [facility] Work Phone: Comment on above: 1 Occurrences starting 10/08/2023 until 10/08/2024 End: 05-12-2025 ECG COMPLETE ECG COMPLETE ECG Routine S/P CABG x 3 Controlled type 2 diabetes mellitus without complication, without long-term current use of insulin ([facility]) Primary hypertension 1 Occurrences starting 05/12/2024 until 05/12/2025 [facility] Work Phone: Comment on above: 1 Occurrences starting 05/12/2024 until 05/12/2025 End: 10-08-2024 Echocardiography ECHO Cardiology Routine 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 (HCC) Pre-operative cardiovascular examination Atherosclerosis of [place] coronary artery of shosh[place]annock heart with stable angina pectoris (HCC) 1 Occurrences starting 10/08/2023 until 10/08/2024 [facility] Work Phone: Comment on above: 1 Occurrences starting 10/08/2023 until 10/08/2024 End: 08-17-2025 EGD / Colonoscopy EGD / Colonoscopy GI Routine Anemia, unspecified type 1 Occurrences starting 08/17/2024 until 08/17/2025 [facility] Work Phone: Comment on above: 1 Occurrences starting 08/17/2024 until 08/17/2025 End: 11-06-2024 Radiologic exam chest 2 views XR CHEST 2V FRONTAL/LAT Radiology Routine 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 (HCC) Pre-operative cardiovascular examination Atherosclerosis of shosh[place] coronary artery of shosh[place]bannock heart with stable angina pectoris (HCC) 1 Occurrences starting 10/08/2023 until 11/06/2024 [facility] Work Phone: Comment on above: 1 Occurrences starting 10/08/2023 until 11/06/2024 Radiologic exam chest 2 views XR CHEST 2V FRONTAL/LAT Radiology Routine 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 (HCC) Pre-operative cardiovascular examination Atherosclerosis of shosh[place]ann[place] coronary artery of shoshone-bannock heart with stable angina pectoris (HCC) 10/27/2023 11:24 AM EST [facility] Work Phone: [facility] Immunizations Immunization Date Immunization Notes Care Provider Manuel griffin 08-02-2021 influenza virus vaccine, unspecified formulation Rosalia Trinidad MD Work Phone: [facility] Payers Date Payer Category Payer Medicare [id number] 2024 Unknown [id number] 2022 Medicare [id number] 2022 Medicare [id number] 2013 Unknown [id number] 1959 Unknown [id number] 1957 Unknown [id number] 2.16.84 0.1.962911.3.579.2.593 1957 Unknown [id number] 2.16.84 0.1.261530.3.579.2.593 1957 Unknown [id number] 2.16.84 0.1.595511.3.579.2.593 1957 Unknown [id number] 2.16.84 0.1.428280.3.579.2.593 1957 Unknown [id number] 2.16.8 40.1.737581.3.579.2.1285 1957 Unknown [id number] 2.16.8 40.1.416170.3.579.2.1285 1957 Unknown [id number] 2.16.8 40.1.970239.3.579.2.1285 1957 Unknown [id number] 2.16.8 40.1.817240.3.579.2.1285 1957 Unknown [id number] 2.16.8 40.1.168526.3.579.2.1285 1957 Unknown [id number] 2.16.8 40.1.409958.3.579.2.1285 1957 Unknown [id number] 2.16.8 40.1.455165.3.579.2.1285 1957 Unknown [id number] 2.16.8 40.1.151465.3.579.2.1285 1957 Unknown [id number] 2.16.8 40.1.686132.3.579.2.1285 1957 Unknown [id number] 2.16.8 40.1.022245.3.579.2.1285 1957 Unknown [id number] 2.16.8 40.1.125436.3.579.2.1285 1957 Unknown [id number] 2.16.8 40.1.512094.3.579.2.1285 1957 Unknown [id number] 2.16.8 40.1.841846.3.579.2.1285 1957 Unknown [id number] 2.16.8 40.1.566609.3.579.2.1285 1957 Unknown [id number] 2.16.8 40.1.561900.3.579.2.1285 1957 Unknown [id number] 2.16.8 40.1.349236.3.579.2.1285 1957 Unknown [id number] 2.16.8 40.1.233473.3.579.2.1285 1957 Unknown [id number] 2.16.8 40.1.130473.3.579.2.1285 1957 Unknown [id number] 2.16.8 40.1.628383.3.579.2.1285 1957 Unknown [id number] 2.16.8 40.1.171767.3.579.2.1285 1957 Unknown [id number] 2.16.8 40.1.003615.3.579.2.1285 1957 Unknown [id number] 2.16.8 40.1.849658.3.579.2.1285 1957 Unknown [id number] 2.16.8 40.1.391010.3.579.2.1285 1957 Unknown [id number] 2.16.8 40.1.962096.3.579.2.1285 1957 Unknown [id number] 2.16.8 40.1.401080.3.579.2.1285 1957 Unknown [id number] 2.16.8 40.1.167499.3.579.2.1285 1957 Unknown [id number] 2.16.8 40.1.606353.3.579.2.1285 1957 Unknown [id number] 2.16.8 40.1.049785.3.579.2.1285 1957 Unknown [id number] 2.16.8 40.1.451217.3.579.2.1285 1957 Unknown [id number] 2.16.8 40.1.561165.3.579.2.1285 1957 Unknown [id number] 2.16.8 40.1.925895.3.579.2.1286 1957 Unknown [id number] 2.16.8 40.1.790881.3.579.2.1285 1957 Unknown [id number] 2.16.8 40.1.324553.3.579.2.1285 1957 Unknown [id number] 2.16.8 40.1.984548.3.579.2.1285 1957 Unknown [id number] 2.16.8 40.1.540022.3.579.2.1285 1957 Unknown [id number] 2.16.8 40.1.776789.3.579.2.1285 1957 Unknown [id number] 2.16.8 40.1.639879.3.579.2.1285 1957 Unknown [id number] 2.16.8 40.1.456314.3.579.2.1285 1957 Unknown [id number] 2.16.8 40.1.131561.3.579.2.1285 1957 Unknown [id number] 2.16.8 40.1.110512.3.579.2.1285 1957 Unknown [id number] 2.16.8 40.1.060291.3.579.2.1285 1957 Unknown [id number] 2.16.8 40.1.479660.3.579.2.1285 1957 Unknown [id number] 2.16.8 40.1.623367.3.579.2.1285 1957 Unknown [id number] 2.16.8 40.1.931509.3.579.2.1285 1957 Unknown [id number] 2.16.8 40.1.108318.3.579.2.1285 1957 Unknown [id number] 2.16.8 40.1.638732.3.579.2.1286 1957 Unknown [id number] 2.16.8 40.1.905316.3.579.2.128 1957 Unknown [id number] 2.16.8 40.1.340059.3.579.2.128 1957 Unknown [id number] 2.16.8 40.1.809043.3.579.2.1285 1957 Unknown [id number] 2.16.8 40.1.388971.3.579.2.128 1957 Unknown [id number] 2.16.8 40.1.524875.3.579.2.1285 1957 Unknown [id number] 2.16.8 40.1.882219.3.579.2.128 1957 Unknown [id number] 2.16.8 40.1.978086.3.579.2.1285 1957 Unknown [id number] 2.16.8 40.1.245594.3.579.2.128 1957 Unknown [id number] 2.16.8 40.1.487022.3.579.2.128 1957 Unknown [id number] 2.16.84 0.1.330278.3.579.2.128 1957 Unknown [id number] 2.16.84 0.1.028161.3.579.2.1286 Social History Date Type Detail Facility Start: 10-06-2023 Tobacco smoking stat us LAIS Tobacco smoking consumption unknown [facility] Start: 1955 Sex Assigned At Not on file [facility] Start: 12-31-2020 End: 10-27-2023 Gender identity Not on file [facility] Start: 04-13-2018 End: 10-27-2023 Tobacco smoking status LAIS Never smoked tobacco [facility] Start: 04-13-2018 End: 10-27-2023 Tobacco use and exposure Smokeless tobacco non-user [facility] Start: 10-27-2023 End: 06-14-2024 Alcohol intake Lifetime non-drinker (finding) [facility] Start: 12-31-2020 End: 10-27-2023 History of Social function [facility] National Score (1-100), lower number is lower risk 53 [facility] (I/We) worried whetiny er (my/our) food would run out before (I/we) got money to buy more. Never true [facility] In the past 12 month s, was there a time when you were not able to pay the mortgage or rent on time? No [facility] Start: 05-01-2022 End: 08-17-2024 Alcoholic beverage intake Current non-drinker of alcohol (finding) [facility] Procedure Code Equipment Code Equipment Origin al Text Equipment Identifier Dates Lens Iol Ultrase rt 18.5d - [id number] - [id number] Start: 05-01-2022 Goals Date Patient Goal [...] anti-inflammatory drugs and he should take omeprazole ushb-jcu-ggeisgu for 6 weeks only. Thanks, Dr. Nolan [...] anti-inflammatory drugs and he should take omeprazole psnc-xkb-zprcewq for 6 weeks only. Thanks, Dr. Nolan [facility] 09-01-2024 Telephone encounter Note Spoke with patient regarding pathology results. Patient verbally understood with no further questions. Recall to be put in chart. [facility] 08-23-2024 Miscellaneous Notes Preoperative Education Checklist- General Surgery date: 08/29/24 Surgery time: 1015 Arrival time: 0815 1. Bring a photo ID and your insurance card with you the day of surgery. You will check in at the main lobby of the [facility]- registration desk is straight ahead as soon as you walk in. Tell them you are here for surgery. 2. If you have a Living Will/Durable Power of Telephone Plant [employer] Operator for Health Care that is not on [...] after you have bathed. 5. NO nail peruvian/acrylic on at least one finger. If you are having a hand, wrist or foot surgery then all nail peruvian and artificial/acrylic nails must be removed from [...] please call the Preadmission Testing office at [phone], Mon.-Fri. 7 a.m.-3 p.m. Leave a voicemail [...] prior to procedure documented in this encounter [facility] 08-23-2024 Nurse Note Preoperative Education Checklist- General Surgery date: 08/29/24 Surgery time: 1015 Arrival time: 814 1. Bring a photo ID and your insurance card with you the day of surgery. You will check in at the main lobby of the [facility]- registration desk is straight ahead as soon as you walk in. Tell them you are here for surgery. 2. If you have a Living Will/Durable Power of Telephone Plant [employer] Operator for Health Care that is not on [...] after you have bathed. 5. NO nail peruvian/acrylic on at least one finger. If you are having a hand, wrist or foot surgery then all nail peruvian and artificial/acrylic nails must be removed from [...] please call the Preadmission Testing office at [phone], Mon.-Fri. 7 a.m.-3 p.m. Leave a voicemail [...] Stop taking 0 days prior to procedure [facility] 08-17-2024 History of Presen t illness Narrative Images from the original note were not included. Chief Complaint: Anemia History of Present Illness Roland Hong is a 69 y.o. male who presents to the office for anemia. He was referred by Dr. Crane. His last colonoscopy was in 2020 at [facility] with Dr. Sims significant for extensive diverticulosis. It was otherwise normal. He denies any current rectal bleeding, though he did see some bright red blood about a year ago. He denies any abdominal pain, constipation or diarrhea. He does report looser stools. 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 He is on aspirin daily. He follows with the [facility]. Review of Systems Constitutional: Negative for fever [...] Diagnosis Date Diabetes mellitus type 2, controlled ([facility]) Hyperlipidemia Hypertension Myocardial infarction ([facility]) Retinal detachment Visual impairment Past Surgical History: Procedure Laterality Date CARDIAC SURGERY 10/28/2023 TRIPPLE HEART BYPASS @ [facility] CORONARY ANGIOPLASTY WITH STENT PLACEMENT x 4, April 24, 2006 EXTRACTION CATARACT INTRAOCULAR LENS Right 05/01/2022 Performed by Natividad Poole MD at [facility] EYE SURGERY RETINAL DETACHMENT SURGERY No Known [...] the morning., Disp: , Rfl: peg 3350-sod sulf,gckr-dgf-pkj 178.7-7.3-0.5 gram recon soln, Take 1 kit [...] Resource Strain: Low Risk (10/29/2023) Received from [facility] Overall Financial Resource Strain (CARDIA) Difficulty of Paying Living Expenses: Not hard at all Food Insecurity: No Food Insecurity (08/17/2024) Hunger Screening Food Insecurity - Worry: Never True Food Insecurity - Inability: Never True Transportation Needs: No Transportation Needs (10/29/2023) Received from [facility] PRAPARE - Transportation Lack of Transportation (Medical): No Lack of Transportation (Non-Medical): No Physical Activity: Not on file Stress: Not on file Social Connections: Not on file Interpersonal Safety: Unknown (01/15/2024) Received from [facility] [place] Safety & Environment Fear of Current or Ex-Partner: Not on file Emotionally Abused: Not on file Physically Abused: Not on file Sexually Abused: Not on file Physically or Sexually Abused: Not on file Housing Instability: Low Risk (10/29/2023) Received from [facility] Housing Stability Vital Sign Unable to [...] patient/family/caregiver Referring and communicating with other health care management coordinator Anemia, unspecified type [D64.9] [facility] [place] This note was created with the assistance of a speech recognition program. While intending to generate a timely document that accurately reflects the content of the visit, no guarantee can be provided that every grammatical or spelling mistake has been or will be identified or corrected. Thank you for your understanding. ESVIN Nix 08/17/24 1116 documented in this encounter [facility] 06-15-2024 Note [facility] 06-15-2024 History of Presen t illness Narrative Images from the original note were not included. Heart, Vascular and Thoracic [place] [facility] Department of Cardiovascular Medicine SECTION OF INTERVENTIONAL CARDIOLOGY OUTPATIENT VISIT DATE June 15, 2024 OUTPATIENT VISIT TYPE ESTABLISHED PRIMARY CARE PHYSICIAN: Emmanuel Crane [address] [place] [address] REFERRING PHYSICIAN: Rosalia Trinidad [address] [facility] [address] CHIEF COMPLAINT: Patient presents with: Follow Up [...] 3 times weekly. Planning to join a [employer] for indoor exercises. He feels well. Has [...] niacin. CONTACT INFORMATION: Rosalia Trinidad M.D. Staff Car Usher, Interventional Cardiology [facility] Department of Cardiovascular Medicine Heart and Vascular [place] [facility] Desk [address] [place] [address] Office - [phone] extension [phone] Office Appointments: [phone] extension [phone] documented in this encounter [facility] 05-27-2024 Telephone encounter Note Second attempt to reach patient. Patient states that he will discuss with his ride over the weekend and he will call the office on Thursday. [facility] 05-27-2024 Miscellaneous Notes Second attempt to reach patient. Patient states that he will discuss with his ride over the weekend and he will call the office on Thursday. Called patient to r/s appt due to unplanned provider absence Left VM on mobile number documented in this encounter [facility] 05-27-2024 Telephone encounter Note Called patient to r/s appt due to unplanned provider absence Left VM on mobile number [facility] 01-04-2024 History of Presen t illness Narrative [...] BMI Category: Obese class 2 (35.00- 39.99) [place] Body Weight: 69.6 kg Past Medical History: Past Medical History: Diagnosis Date Diabetes mellitus type 2, controlled ([facility]) Hyperlipidemia Hypertension Myocardial infarction ([facility]) Retinal detachment Visual impairment Past Surgical History: Past Surgical History: Procedure Laterality Date CARDIAC SURGERY CORONARY ANGIOPLASTY WITH STENT PLACEMENT x 4, April 24, 2006 EXTRACTION CATARACT INTRAOCULAR LENS Right 05/01/2022 Performed by Natividad Poole MD at [facility] EYE SURGERY RETINAL DETACHMENT SURGERY Medications: [...] Cardiac Diet & Low Fat handouts) and [employer] Heart Healthy Guidelines. Patient exercised knowledge of the information based on the answers to the questions. Monitoring and Evaluation: The following goals were discussed with the patient: 1. Use the plate method and choose healthy foods for portion control and weight management. Follow the [employer] recommendations when eating out, and [...] questions arise. QUINCY Bond RD Clinical Dietitian [facility] documented in this encounter [employer] 12-30-2023 Miscellaneous Notes Images from the original [...] Call back #: documented in this encounter [facility] 12-14-2023 Note [facility] 12-09-2023 Note [facility] 11-13-2023 Note [facility] 11-10-2023 Note [facility] 11-10-2023 Note [facility] 11-03-2023 Miscellaneous Notes 1. Have you noticed [...] Valentina Edge RN documented in this encounter [facility] 11-02-2023 Note [facility] 11-02-2023 Note [facility] 11-02-2023 Note [facility] 11-01-2023 Note [facility] 10-31-2023 Note [facility] 10-30-2023 Note [facility] 10-30-2023 Note [facility] 10-30-2023 Miscellaneous Notes Office rec'd call from [...] number for documentation. documented in this encounter [facility] 10-30-2023 Note [facility] 10-29-2023 Note [facility] 10-28-2023 Note [facility] 10-28-2023 Note [facility] 10-28-2023 Note [facility] 10-28-2023 Note [facility] 10-28-2023 History of Past i llness Narrative [...] of this encounter (statuses as of 10/30/2023) [facility]12-06-2023 History of Past illness Narrative* Problem Noted [...] of this encounter (statuses as of 11/03/2023) [facility]12-06-2023 History of Past illness Narrative* Problem Noted [...] of this encounter (statuses as of 12/30/2023) [facility]12-06-2023 History of Past illness Narrative* Problem Noted [...] of this encounter (statuses as of 01/05/2024) [facility]23 History and physical note* Olivia Downing RN [...] RETINA TEAR SURGERY DERM: Denies Dermatological Complaints 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 Heart [facility] V[facility] [place] [facility] Department of Cardiovascular Medicine SECTION OF INTERVENTIONAL CARDIOLOGY OUTPATIENT VISIT DATE October 26, 2023 OUTPATIENT VISIT TYPE NEW PRIMARY CARE PHYSICIAN: Emmanuel Crane [address] [place] [address] REFERRING PHYSICIAN: Coco Batista [address] [facility] [address] CHIEF COMPLAINT: New Pre op HISTORY OF PRESENT ILLNESS: Mr. Hong is a 68 year old male who presents today . NURSING INTAKE: Mr Hong is a 68 year old male from [place], [place]. He has a past medical history [...] then referred to cardiology (Dr Felix at [facility]) and underwent LHC showing severe CAD. He [...] SYNGO 07/02/23 Coronary angiogram Final Impressions: -Severe sh[place]ann[place] CAD -100% occluded mid LAD immediately after [...] vertebral artery flow. Notes: Indication: Atherosclerosis of [place] coronary artery of sh[place]ann[place] heart I25.10 - Dizziness - Giddiness - [...] others. CONTACT INFORMATION: Rosalia Trinidad M.D. Staff Car Usher, Interventional Cardiology [facility] Department of Cardiovascular Medicine Heart and Vascular [place] [facility] Desk [place] [address] Office - [phone] extension [phone] Office Appointments: [phone] extension [phone] documented [facility] Miscellaneous Notes* Telephone Encounter - Natividad Hudson [...] for his review/plan of care. Roland Hong [id number] 68 year old Diagnosis: CAD Secondary Dx: [...] recs, films & ins. documented [facility]23 Miscellaneous Notes* Telephone Encounter - Yuko Pfeiffer - 10/05/2023 3:24 PM EST IN documented in this encounter[facility]11-07-2023 NotePatient ID: Roland Hong is a 68 [...] Duplex 08/24/23 IMPRESSION: Notes: Indication: Atherosclerosis of [place] coronary artery of sh[place] heart I25.10 - Dizziness - Giddiness - [...] vertebral artery flow. Notes: Indication: Atherosclerosis of [place] coronary artery of sh[place]ann[place] heart I25.10 - Dizziness - Giddiness - [...] Mapping 08/24/23 IMPRESSION: Notes: Indication: Atherosclerosis of [place] Coronary Artery of [place] Heart - Coronary Heart Disease - Dizziness [...] Mapping 08/24/23 IMPRESSION: Notes: Indication: Atherosclerosis of [place] Coronary Artery of [place] Heart - Coronary Heart Disease - Dizziness [...] proximal upper arm. Notes: Indication: Atherosclerosis of [place] Coronary Artery of [place] Heart - Coronary Heart Disease - Dizziness [...] Left: Proximal brachial artery (more content not included)...[facility]10-03-2023 NoteSubjective Patient ID: Roland Hong is a [...] Duplex 08/24/23 IMPRESSION: Notes: Indication: Atherosclerosis of [place] coronary artery of [place] heart I25.10 - Dizziness - Giddiness - [...] vertebral artery flow. Notes: Indication: Atherosclerosis of [place] coronary artery of sh[place] heart I25.10 - Dizziness - Giddiness - [...] Mapping 08/24/23 IMPRESSION: Notes: Indication: Atherosclerosis of [place] Coronary Artery of [place] Heart - Coronary Heart Disease - Dizziness [...] Mapping 08/24/23 IMPRESSION: Notes: Indication: Atherosclerosis of [place] Coronary Artery of [place] Heart - Coronary Heart Disease - Dizziness [...] proximal upper arm. Notes: Indication: Atherosclerosis of [place] Coronary Artery of [place] Heart - Coronary Heart Disease - Dizziness [...] cm triphasic spectral Doppler (more content not included)...[facility]10-02-2023 NoteCT CHEST WITHOUT CONTRAST HISTORY: Pre-bypass open [...] low as reasonably achievable. Electronically signed: Calvin Candelario.[facility] 07-28-2023 NoteSubjective Patient ID: Roland Hong is a 68 y.o. male PMHx DM, HTN, HLD, TN in 2005 s/p stent placement, who presents [...] Affect: Mood normal. TTE 06/12/2023: 1 1 [facility] Heart Station [address] Examination: Echocardiogram (Complete), Lumason Contrast Image Quality: [...] size. Normal right ventricula (more content not included)...[facility]08-10-2023 NotePatient: Roland Hong Procedure Information Date/Time: 07/02/23 0830 Procedure: Coronary angiography (Left) Location: [facility] BEHAVIORAL INTERVENTIONIST 3 / [facility] VASCULAR [facility] (Cath) Providers: Yessi Burgos [...] products. Plan discussed with attending. [facility] Note Chief Complaint: new patient to establish care HPI: Roland Hong is a 68 y.o. male male with a past medical history including HTN, HLD, CAD with TN s/p PCI who is referred to Cardiology clinic for evaluation of chest pain and abnormal stress. Patient reports symptoms of chest pain with exertion over the past several months. He reports associated shortness of breath.. He denies any lower extremity edema, orthopnea, or PND. No near syncope or syncope. No additional complaint at this time. TN with PCI was in 2005. Stress test [...] with possible revascularization -Proc (more content not included)...[facility] 06-12-2023 NoteNew patient here to establish care. Ref from Dr. Crane for abnormal stress test. He does have hx of CAD w/ PCI in [address] [facility]. Stress test was ordered for intermittent chest pain, radiating to his neck and back. Does get SOB w/ exertion and stress he says. Review of Systems Cardiovascular: Positive for chest pain, dyspnea on exertion and leg swelling (end of day). Musculoskeletal: Positive for back pain and neck pain. 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 pectoris (HCC) [facility] Diagnosis 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 (HCC)- Primary Primary hypertension Unspecified essential hypertension Controlled type 2 diabetes mellitus without complication, without long-term current use of insulin (HCC) Obesity (BMI 30.0-34.9) Obesity, unspecified Coronary stent restenosis, 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 (HCC) Pre-operative cardiovascular examination Atherosclerosis of [place] coronary artery of [place] heart with stable angina pectoris (HCC) [facility] Encounter for preoperative anesthesiology assessment for cardiac surgery- Primary [facility] Pre-op exam- Primary Preoperative examination, unspecified Preop testing Preoperative examination, unspecified [facility] Diagnosis 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 (HCC) Pre-operative cardiovascular examination Atherosclerosis of [place] coronary artery of [place] heart with stable angina pectoris (HCC) [facility] this encounter [facility]* Diagnosis S/P CABG x 3- Primary Postsurgical aortocoronary bypass status Controlled type 2 diabetes mellitus without complication, without long-term current use of insulin (HCC) Primary hypertension Unspecified essential hypertension documented in this encounter [facility] note* Diagnosis S/P CABG x 3- Primary Postsurgical aortocoronary bypass status Obesity (BMI 30.0-34.9) Obesity, unspecified Hypertension goal BP (blood pressure) < 140/80 Unspecified essential hypertension Controlled type 2 diabetes mellitus without complication, without long-term current use of insulin (HCC) Coronary stent restenosis, subsequent encounter [facility] encounter [facility]* Diagnosis Anemia, unspecified type- Primary Loose stools Abnormal feces [facility] filedocumented in this encounter [facility] SystemInstructionsNot on filedocumented in this encounter [facility] SystemInstructionsNot on filedocumented in this encounter [facility] SystemInstructionsNot on filedocumented in this encounter [facility] SystemInstructionsNot on filedocumented in this encounter [facility] SystemReason for referral (narrative)* Outpatient Procedure (Routine) - Pending Review Specialty Diagnoses / Procedures Referred By Carl fowler Ref[facility] Diagnoses 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 (HCC) Pre-operative cardiovascular examination Atherosclerosis of [place] coronary artery of shosh[place]ann[place] heart with stable angina pectoris (HCC) Procedures ECHO ECHO TTHRC R-T 2D W/WOM-MODE COMPL SPEC&COLR D Coco Batista MD [address] [place] [address] [facility] [address] [address] Referral ID Status Reason Start Date Expiration Date Visits Requested Visits Authorized [id number] Pending Review Auto-Generat ed Referral 3 10/07/2024 1 1 * Outpatient Procedure (Routine) - Pending Review Specialty Diagnoses / Procedures Referred By Contac t Referred To Contact [facility] Diagnoses 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 (HCC) Pre-operative cardiovascular examination Atherosclerosis of [place] coronary artery of sh[place] heart with stable angina pectoris (HCC) Procedures ECG COMPLETE ECG ROUTINE ECG W/LEAST 12 LDS W/I&R Coco Batista MD [address] [place] [address] [place] [address] Referral ID Status Reason Start Date Expiration Date Visits Requested Visits Authorized [id number] Pending Review Auto-Generat ed Referral 3 10/07/2024 1 1 * Consult, Test, Treat (Routine) - Authorized Specialty Diagnoses / Procedures [facility] To Contact Cardiac Surg Diagnoses 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 (HCC) Pre-operative cardiovascular examination Atherosclerosis of [place] coronary artery of shosh[place]ann[place] heart with stable angina pectoris (HCC) Procedures CARDIOTHORACIC PREOP EVALUATION OFFICE/OUTPATIENT [facility] 60-74 MINUTES Coco Batista MD [address] [place] [address] Referral ID Status Reason Start Date Expiration Date Visits Requested Visits Authorized [id number] Authorized PCP Requested Referral 3 10/07/2024 1 1 * Consult, Test, Treat (Routine) - Authorized Specialty Diagnoses / Procedures [facility] Referred To Contact Cardiology Diagnoses 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 (HCC) Pre-operative cardiovascular examination Atherosclerosis of shosh[place] coronary artery of shosh[place]bannock heart with stable angina pectoris (HCC) Procedures CONSULT TO CARDIOLOGY OFFICE/OUTPATIENT [facility] 60-74 MINUTES Coco Batista MD [address] [place] [address] Referral ID Status Reason Start Date Expiration Date Visits Requested Visits Authorized [id number] Authorized PCP Requested Referral 3 10/07/2024 1 1 [facility] Outpatient Procedure (Routine) - Pending Review Specialty Diagnoses / Procedures Referred By Contac t Referred To [facility] Diagnoses S/P CABG x 3 Controlled type 2 diabetes mellitus without complication, without long-term current use of insulin (HCC) Primary hypertension Procedures ECG COMPLETE ECG ROUTINE ECG W/LEAST 12 LDS W/I&R Rosalia Trinidad MD [address] [place] [address] [facility] [place] [facility] [place] [address] Referral ID Status Reason Start Date Expiration Date Visits Requested Visits Authorized [id number] Pending Review Auto-Generat ed Referral 05/12/2024 05/12/2025 1 1 [facility] Summary Purpose Family History No Family History Records FoundNo Family History Records FoundNo Family History Records FoundNo Family History Records FoundNo Family History Records Found Advance Directives Documents on File Type Date Recorded 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 Advance Directive(s) 10/30/2023 8:03 AM Advance Directive(s) 10/27/2023 4:44 PM Documents on File Type Date Recorded 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 Advance Directive(s) 10/30/2023 8:03 AM Advance Directive(s) 10/27/2023 4:44 PM Reason for Referral Specialty Diagnoses / Procedures Referred By Carl t Referred To Contact Procedures CARDIOVASCULAR MEDICINE OP FOLLOW UP APPT ORDER Rosalia Trinidad MD [address] [place] [address] Referral ID Status Reason Start Date Expiration Date Visits Requested Visits Authorized [id number] Ref Not Required PCP Requested Referral 10/27/2023 10/26/2024 1 1 Specialty Diagnoses / Procedures Referred By Contcam t Referred To Contact [facility] [place] Procedures CARDIOVASCULAR MEDICINE OP FOLLOW UP APPT ORDER Rosalia Trinidad MD [address] [place] [address] [facility] [place] [address] [place] [address] Referral ID Status Reason Start Date Expiration Date Visits Requested Visits Authorized [id number] Ref Not Required PCP Requested Referral 06/15/2024 06/15/2025 1 1 Additional Source Comments (unrecognized sect ion and content) No Status Records FoundNo Status Records FoundNo Status Records FoundNo Status Records FoundNo Status Records Found INFORMATION SOURCE (unrecogn ized section and content) DATE CREATED AUTHOR 01/21/2022 [facility] DATE CREATED AUTHOR AUTHOR'S ORGANIZ ATION 10/04/2023 [facility] DATE CREATED AUTHOR AUTHOR'S ORGANIZ ATION 08/19/2024 [facility] DATE CREATED AUTHOR AUTHOR'S ORGANIZ ATION 08/25/2024 [facility] DATE CREATED AUTHOR AUTHOR'S ORGANIZ ATION 09/08/2024 [facility] Source Comments (unrecognize d section and content) In the event this informatio n is protected by the Federal Confidentiality of Alcohol and Drug Abuse Patient Records regulations: The Federal rules restrict any use of the information to criminally investigate or prosecute any alcohol or drug abuse patient.[facility] the event this information is protected by the Federal Confidentiality of Alcohol and Drug Abuse Patient Records regulations: The Federal rules restrict any use of the information to criminally investigate or prosecute any alcohol or drug abuse patient.[facility] the event this information is protected by the Federal Confidentiality of Alcohol and Drug Abuse Patient Records regulations: The Federal rules restrict any use of the information to criminally investigate or prosecute any alcohol or drug abuse patient.[facility] the event this information is protected by the Federal Confidentiality of Alcohol and Drug Abuse Patient Records regulations: The Federal rules restrict any use of the information to criminally investigate or prosecute any alcohol or drug abuse patient.[facility] Hospital[facility] the event this information is protected by the Federal Confidentiality of Alcohol and Drug Abuse Patient Records regulations: The Federal rules restrict any use of the information to criminally investigate or prosecute any alcohol or drug abuse patient.[facility] Hospital[facility] the event this information is protected by the Federal Confidentiality of Alcohol and Drug Abuse Patient Records regulations: The Federal rules restrict any use of the information to criminally investigate or prosecute any alcohol or drug abuse patient.[facility] the event this information is protected by the Federal Confidentiality of Alcohol and Drug Abuse Patient Records regulations: The Federal rules restrict any use of the information to criminally investigate or prosecute any alcohol or drug abuse patient.[facility] Hospital[facility] the event this information is protected by the Federal Confidentiality of Alcohol and Drug Abuse Patient Records regulations: The Federal rules restrict any use of the information to criminally investigate or prosecute any alcohol or drug abuse patient.[facility] Hospital[facility] the event this information is protected by the Federal Confidentiality of Alcohol and Drug Abuse Patient Records regulations: The Federal rules restrict any use of the information to criminally investigate or prosecute any alcohol or drug abuse patient.[facility] Hospital[facility] the event this information is protected by the Federal Confidentiality of Alcohol and Drug Abuse Patient Records regulations: The Federal rules restrict any use of the information to criminally investigate or prosecute any alcohol or drug abuse patient.[facility] Hospital[facility] the event this information is protected by the Federal Confidentiality of Alcohol and Drug Abuse Patient Records regulations: The Federal rules restrict any use of the information to criminally investigate or prosecute any alcohol or drug abuse patient.[facility] HospitalIn the event this information is protected by the Federal Confidentiality of Alcohol and Drug Abuse Patient Records regulations: The Federal rules restrict any use of the information to criminally investigate or prosecute any alcohol or drug abuse patient.[facility] HospitalIn the event this information is protected by the Federal Confidentiality of Alcohol and Drug Abuse Patient Records regulations: The Federal rules restrict any use of the information to criminally investigate or prosecute any alcohol or drug abuse patient.[facility] HospitalIn the event this information is protected by the Federal Confidentiality of Alcohol and Drug Abuse Patient Records regulations: The Federal rules restrict any use of the information to criminally investigate or prosecute any alcohol or drug abuse patient.[facility] Reason for Visit (unrecogniz ed section and [...] Anemia ANEMIA, LAST COLONOS COPY 02/27/[address] [employer] [facility] [facility] [employer] DR SIMS, REFERRED BY DR CRANE Care Teams (unrecognized sec tion and content) Adjuster Arbitrator Relationship Specialty Start Date End Date Coco Batista MD [address] [place] [place] [id number] Surgeon Cardiac Surg 10/05/23 Adjuster Arbitrator Relationship Specialty Start Date End Date Coco Batista MD [address] [place] [phone] Surgeon Cardiac Surg 10/05/23 Adjuster Arbitrator Relationship Specialty Start Date End Date Emmanuel Crane MD [address] [place] [address] PCP - General Family Medicine 10/14/23 Coco Batista MD [address] [facility] [facility] [place] [id number] Surgeon Cardiac Surg 10/05/23 Rosalia Trinidad MD [address] [place] [id number] Cardiology 10/09/23 Rosalia Trinidad MD [address] [place], [place] [id number] Primary Staff Physician Cardiology 10/27/23 Adjuster Arbitrator Relationship Specialty [place] [address] [place] [phone] PCP - General Family Medicine 10/14/23 Coco Batista MD [address] [place], [place] [id number] Surgeon Cardiac Surg 10/05/23 Rosalia Trinidad MD [address] [place] [address] Cardiology 10/09/23 Rosalia Trinidad MD [address] [place], [place] [id number] Primary Staff Physician Cardiology 10/27/23 Adjuster Arbitrator Relationship Specialty [place] [address] [place] [phone] PCP - General Family Medicine 10/14/23 Coco Batista MD [address] [place], [place] [id number] Surgeon Cardiac Surg 10/05/23 Rosalia Trinidad MD [address] [place], [place] [id number] Cardiology 10/09/23 Rosalia Trinidad MD [address] [place], [place] [id number] Primary Staff Physician Cardiology 10/27/23 Adjuster Arbitrator Relationship Specialty Start Date End Date Emmanuel Crane MD [address] [place] [address] PCP - General Family Medicine 10/14/23 Coco Batista MD [address] [place], [place] [phone] Surgeon Cardiac Surg 10/05/23 Rosalia Trinidad MD [address] [place], [place] [phone] Cardiology 10/09/23 Rosalia Trinidad MD [address] [place], [place] [id number] Primary Staff Physician Cardiology 10/27/23 Adjuster Arbitrator Relationship Specialty Start Date End Date Emmanuel Crane MD [address] [place] [address] PCP - General Family Medicine 10/14/23 Coco Batista MD [address] [place], [place] [phone] Surgeon Cardiac Surg 10/05/23 Rosalia Trinidad MD [address] [place], [place] [phone] Cardiology 10/09/23 Rosalia Trinidad MD [address] [place] [address] Primary Staff Physician Cardiology 10/27/23 Adjuster Arbitrator Relationship Specialty Start Date End Date Emmanuel Crane MD [address] [place] [address] PCP - General Family Medicine 10/14/23 Coco Batista MD [address] [place], [place] [phone] Surgeon Cardiac Surg 10/05/23 Rosalia Trinidad MD [address] [place], [place] [phone] Cardiology 10/09/23 Rosalia Trinidad MD [address] [place] [address] Primary Staff Physician Cardiology 10/27/23 Adjuster Arbitrator Relationship Specialty Start Date End Date Emmanuel Crane MD [address] [place] [phone] PCP - General Family Medicine 10/14/23 Coco Batista MD [address] [place] [address] Surgeon Cardiac Surg 10/05/23 Rosalia Trinidad MD [address] [place] [address] Cardiology 10/09/23 Rosalia Trinidad MD [address] [place] [address] Primary Staff Physician Cardiology 10/27/23 Adjuster Arbitrator Relationship Specialty Start Date End Date Emmanuel Crane MD [address] [place] [address] [phone] PCP - General Family Medicine 10/14/23 Coco Batista MD [address] [place] [address] Surgeon Cardiac Surg 10/05/23 Rosalia Trinidad MD [address] [place] [address] Cardiology 10/09/23 Rosalia Trinidad MD [address] [place] [address] Primary Staff Physician Cardiology 10/27/23 Adjuster Arbitrator Relationship Specialty Start Date End Date Emmanuel Crane MD [address] [place] [address] PCP - General Family Medicine 10/14/23 Coco Batista MD [address] [place] [address] Surgeon Cardiac Surg 10/05/23 Rosalia Trinidad MD [address] [place] [address] Cardiology 10/09/23 Rosalia Trinidad MD [address] [place] [phone] Primary Staff Physician Cardiology 10/27/23 Adjuster Arbitrator Relationship Specialty Start Date End Date Emmanuel Crane MD [address] [place] [phone] PCP - General Family Medicine 10/14/23 Coco Batista MD [address] [place] [phone] Surgeon Cardiac Surg 10/05/23 Rosalia Trinidad MD [address] [place] [phone] Cardiology 10/09/23 Rosalia Trinidad MD [address] [facility] [facility] [place] [phone] Primary Staff Physician Cardiology 10/27/23 Adjuster Arbitrator Relationship Specialty Start Date End Date Emmanuel Crane MD [address] [place], [place] [phone] PCP - General Family Medicine 10/14/23 Coco Batista MD [address] [facility] [facility] [place] [phone] Surgeon Cardiac Surg 10/05/23 Rosalia Trinidad MD [address] [place] [address] Cardiology 10/09/23 Rosalia Trinidad MD [address] [place] [address] Primary Staff Physician Cardiology 10/27/23 Adjuster Arbitrator Relationship Specialty Start Date End Date Emmanuel Crane MD [address] [place] [address] PCP - General Family Medicine 10/14/23 Coco Batista MD [address] [place], [place] [phone] Surgeon Cardiac Surg 10/05/23 Rosalia Trinidad MD [address] [place], [place] [phone] Cardiology 10/09/23 Rosalia Trinidad MD [address] [place], [place] [phone] Primary Staff Physician Cardiology 10/27/23 Adjuster Arbitrator Relationship Specialty Start Date End Date Emmanuel Crane MD [address] [place] [phone] PCP - General 03/29/16 Adjuster Arbitrator Relationship Specialty Start Date End Date Emmanuel Crane MD [address] [place] [phone] PCP - General 03/29/16 Adjuster Arbitrator Relationship Specialty Start Date End Date Emmanuel Crane MD [address] [place] [address] PCP - General 03/29/16 Adjuster Arbitrator Relationship Specialty Start Date End Date Emmanuel Crane MD [address] [place] [address] PCP - General 03/29/16 Adjuster Arbitrator Relationship Specialty Start Date End Date Emmanuel Crane MD [address] [place] [address] PCP - General 03/29/16 Adjuster Arbitrator Relationship Specialty Start Date End Date Emmanule Crane MD [address] [place] [address] PCP - General 03/29/16 Adjuster Arbitrator Relationship Specialty Start Date End Date Emmanuel Crane MD [address] [place] [address] PCP - General 03/29/16 Adjuster Arbitrator Relationship Specialty Start Date End Date Emmanuel Crane MD [address] [place] [address] PCP - General 03/29/16 Adjuster Arbitrator Relationship Specialty Start Date End Date Emmanuel Crane MD [address] [place] [address] PCP - General 03/29/16 Adjuster Arbitrator Relationship Specialty Start Date End Date Emmanuel Crane MD [address] [place] [address] PCP - General 03/29/16 Adjuster Arbitrator Relationship Specialty Start Date End Date Emmanuel Crane MD [address] [place] [address] PCP - General 03/29/16 Adjuster Arbitrator Relationship Specialty Start Date End Date Emmanuel Crane MD [address] [place] [facility] [place] [address] PCP - General 03/29/16 Adjuster Arbitrator Relationship Specialty Start Date End Date Emmanuel Crane MD [address] [place] [address] PCP - General 03/29/16 Adjuster Arbitrator Relationship Specialty Start Date End Date Emmanuel Crane MD [address] [place] [address] PCP - General 03/29/16 Adjuster Arbitrator Relationship Specialty Start Date End Date Emmanuel Crane MD [address] [place] [address] PCP - General 03/29/16 Adjuster Arbitrator Relationship Specialty Start Date End Date Emmanuel Crane MD [address] [place] [phone] PCP - General 03/29/16 Adjuster Arbitrator Relationship Specialty Start Date End Date Emmanuel Crane MD [address] [place] [phone] PCP - General 03/29/16 Adjuster Arbitrator Relationship Specialty Start Date End Date Emmanuel Crane MD [address] [place] [address] PCP - General 03/29/16 Adjuster Arbitrator Relationship Specialty Start Date End Date Emmanuel Crane MD [address] [place] [address] PCP - General 03/29/16 Adjuster Arbitrator Relationship Specialty Start Date End Date Emmanuel Crane MD [address] [place] [address] PCP - General 03/29/16 Adjuster Arbitrator Relationship Specialty Start Date End Date Emmanuel Crane MD [address] [place] [address] PCP - General 03/29/16 Adjuster Arbitrator Relationship Specialty Start Date End Date Emmanuel Crane MD [address] [place] [address] PCP - General 03/29/16 Adjuster Arbitrator Relationship Specialty Start Date End Date Emmanuel Crane MD [address] [place] [address] PCP - General 03/29/16 Adjuster Arbitrator Relationship Specialty Start Date End Date Emmanuel Crane MD [address] [place] [address] PCP - General 03/29/16 Adjuster Arbitrator Relationship Specialty Start Date End Date Emmanuel Crane MD PCP - General 03/29/16 Adjuster Arbitrator Relationship Specialty Start Date End Date Emmanuel Crane MD [address] [place] [address] PCP - General Family Medicine 08/29/24 Adjuster Arbitrator Relationship Specialty Start Date End Date Emmanuel [...] BE BASED ON THE PRIMARY CLINICAL RECORDS. [facility]. provides no warranty or guarantee of the accuracy or completeness of information in this document.
== END 2025-04-05 08:05 | disposition home or self-care (01) ==
LOC: HEMC 07:40
PROVIDERS: PCP Family Medicine; Visit Provider Internal Medicine Hematology & Oncology
DX: D64.9 Anemia, unspecified (principal); D50.9 Iron deficiency anemia, unspecified; K90.9 Intestinal malabsorption, unspecified; I25.10 Atherosclerotic heart disease of native coronary artery without angina pectoris; K21.9 Gastro-esophageal reflux disease without esophagitis; Z87.440 Personal history of urinary (tract) infections; Z95.5 Presence of coronary angioplasty implant and graft
CPT/HCPCS: G0463

== ENCOUNTER 2025-05-25 11:34 | Outpatient (OUT) | payer MEDICARE, OTHER, SELFPAY | END 2025-05-25 11:35 | disposition home or self-care (01) | LOC: PST 11:36 | PROVIDERS: PCP Family Medicine; Visit Provider Surgery | DX: Z01.818 Encounter for other preprocedural examination (principal); L98.499 Non-pressure chronic ulcer of skin of other sites with unspecified severity ==

== ENCOUNTER 2025-06-07 11:14 | Day surgery (SDC) | payer MEDICARE, OTHER, SELFPAY ==
--- OUTSIDE RECORDS SUMMARY | 2025-05-04 04:30 | XMS_ITS ---
[facility] Organization [facility] [place] Address [address] [place] [address] Care Team Providers Care Rebar Fabricator Name Role Phone Royce Moshe Primary Care Provider [phone] Allergies No Known Allergies Reason For Referral Diagnosis 1 Nevus (D22.9) Referral Organization [facility] Referring Provider First Name Moshe Referring Provider Last Name Royce Referring Provider Speciality Family Med radha Referred Provider Mac Schroeder Referred Provider Specialty General Surg rebel Referral Priority Routine REASON FOR VISIT 3 month f/u, new DM meter- ONE TOUCH ULTRA Medications Medication SIG (Take, Route, Frequency, Duration) Notes Start Date End Date Status Zetia 10 MG 1 tablet Orally Once a day for 90 days Active Vitamin D (Cholecalciferol) 50 MCG (1999 UT) 1 capsule Orally Once a day Active Vitamin C 1000 MG 1 tablet Orally Once a day Active Vitamin B-12 5000 MCG as directed Orally Active Tamsulosin HCl 0.4 MG take 1 capsule by mouth once daily for 90 days Active Jardiance 10 MG 1 tablet Orally Once a day for 90 days Active Isosorbide Mononitrate ER 30 MG 1 tablet in the morning Orally Once a day for 90 days Active Olmesartan Medoxomil-HCTZ 40-25 mg TAKE 1 TABLET DAILY for 90 days Active metFORMIN HCl 1000 MG 1 tablet with a me al Orally BID for 90 days 05/18/2023 Active levoFLOXacin 750 MG 1 tablet Orally Once a day for 14 days 03/06/2025 Active Glimepiride 2 MG TAKE 1 TABLET DAILY WITH BREAKFAST OR FIRST MAIN MEAL OF THE DAY for 90 days Active Gentle Iron 28-60-0.008-0.4 MG 1 capsule Orally Once a day 11/08/2024 Active Carvedilol 25 MG 1 tablet Orally Twic e a day for 90 days Active Atorvastatin Calcium 40 MG 1 tablet Oral ly Once a day for 90 days Active Aspirin 81 81 MG 1 tablet Orally Once a day Active Allopurinol 100 MG 1 tablet Orally Once a day for 90 days Active Actos 30 MG 1 tablet Orally Once a day for 90 days 05/18/2023 Active OneTouch Ultra Test - Use as directed In Vitro to test blood sugars daily DX: E11.3552 03/23/2025 Active Lancets - Use as directed to c heck blood sugar daily DX: E1135503/23/2025 Active amLODIPine Besylate 5 MG take 1 tablet b y mouth once daily for 90 days Active Zinc 50 MG 1 tablet Orally Once a day Active Social History Tobacco Use: Social History Observation Description Date Details (start date - stop date) Never Smoker NA - NA Tobacco Use/Smoking Question Answer Notes Patient is a nonsmoker Problems Problem Type SNOMED Code ICD Code Onset Dates Problem Status W/U Status Risk Notes Problem Nevus ([id number]) Nevus (D22.9) Active confirmed Vital Signs Weight 271.8 lbs 05/04/2025 Height 68 in 05/04/2025 Blood pressure systolic 122 mm Hg 05/04/20 25 Blood pressure diastolic 74 mm Hg 025 BMI 41.32 kg/m2 05/04/2025 Encounters Encounter Location Date Provider Diagnosis [facility] [address] [place] [address] 05/04/2025 Moshe Hoy Nevus D22.9 ; Essent ial (primary) hypertension I10 ; Pure hypercholesterolemia, unspecified E78.00 and Atherosclerotic heart disease of [place] coronary artery without angina pectoris I25.10 Assessments Encounter Date Diagnosis (ICD Code) Assessment Notes Treatment Notes Treatment Clinical Notes Section Notes 05/04/2025 Nevus (ICD-10 - D22.9) 05/04/2025 Essential (primary) hypertension (ICD-10 - I10) 05/04/2025 Pure hypercholesterolemia , unspecified (ICD-10 - E78.00) 05/04/2025 Atherosclerotic heart disease of [place] coronary artery without angina pectoris (ICD-10 - I25.10) Plan Of Treatment Referrals Referral Date Details 05/04/2025 05/04/2025, Mac Schroeder Next Appt Details Provider Name:Maureen Cedeno , 07/04/2025 11:30:00 AM, [address] [place], [address], Provider Name:Moshe Crane, 10:30:00 AM, [address] [place], [address], Progress Notes * Roland HONG MDOB:1955 (70 yo M)Acc No.[id number]:05/04/2025 Progress Note Patient: Roland LYMAN Provider: Marisela Crane ([facility])MD :1955 A ge:70 Y S ex:Male Date:05/04/2025 Address:[address] [place], [place] [id number] Check In:08:31 AM ESTCheck O ut:09:07 AM EST Subjective: * Chief Complaints: * 3 month f/unew DM meter- ONE TOUCH ULTRA * HPI: G eneral: dm - 110's - h - stable gout controlled chol med - on meds - revieweed. * ROS: E ENT: hearing changes d enies. v isual changes d enies.?non-healing mouth sores d enies. s wollen glands or neck lumps d enies. h oarseness d enies. s ore throat d enies. d ifficulty swallowing d enies. n ose bleeds d enies. n abhijeet congestion d enies. e ar ache d enies. e ar discharge?denies. r inging in ears d enies. l ight sensitivity d enies. e ye pain d enies. b lurring d enies. e ye irritation d enies. d ouble vision d enies.?vision loss d enies. G eneral/Constitutional: Sweats: D enies. F atigue d enies. S leep problems d enies. A norexia d enies. M alaise d enies. W eight loss d enies.?Fatigue or Weakness d enies. F ever or Chills d enies. C ardiovascular: Shortness of Breath w/lying flat d enies. L ightheadedness/dizziness d enies. C hest tightness/ heavy pressure d enies. S welling of legs, ankles, or feet d enies. W aking up with shortness of breath d enies. C hest pain denies. P alpitations d enies. W eight gain d enies. R espiratory: Chronic or frequent cough d enies. C oughing up blood?denies. D ifficulty breathing d enies. P roductive cough d enies. S noring?denies. S hortness of breath that awakens from sleep (PND) d enies. C hest pain d enies. S putum production d enies. W heezing d enies. M usculoskeletal: Joint pain d enies. J oint Fluid d enies. B ack pain d enies. K nee pain d enies. N robbie pain d enies. J oint Stiffness d enies. M uscle cramps d enies. W eakness of muscles d enies. A rthritis d enies. M uscle aches d enies. P ain in shoulder(s) d enies. S wollen joints d enies. 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, left eye Modified On:02/09/2024U Status:confirmed H33.20 Serous retinal detac hment, unspecified eye Modified On:05/20/2023U Status:confirmed I10 Essential (primary) hypertension Modified On:02/09/2024U Status:confirmed E78.00 Pure hypercholestero lemia, unspecified Modified On:11/18/2023W/U Status:confirmed I25.10 Atherosclerotic hear t disease of [place] coronary artery without angina pectoris Modified On:07/06/2023/U Status:confirmed R07.9 Chest pain Modified On:06/05/2023/U Status:confirmed I25.10 CAD (coronary artery disease) Modified On:02/09/2024W/U Status:confirmed D64.9 Anemia Modified On:09/02/2024/U Status:confirmed D50.9 Iron deficiency anem ia Modified On:09/05/2024/U Status:confirmed D22.9 Nevus Modified On:05/04/2025/U Status:confirmed * Medical History: * Surgical History: A ngioplasty Cataract Removal Pars Plana Vitrectomy- Left Cataract Extraction CABG Dr. Lucas - Triple Bypass 10/28/2023olonoscopy & EGD Dr Villa 08/29/2024 * Hospitalization/Major Diagno stic Procedure: c ovid 12/2019[facility]- Open Heart Surgery 10/2023 * Family History: F ather: 55 yrs, Bone cancer. M other: , diagnosed with Unspecified heart disease. B rother(s): alive. S on(s): alive. D selene(s): alive. 1 brother(s) - healthy. 1 son(s) , 1 daughter(s) . . * Social History: T obacco Use: T obacco Use/Smoking P atient is a n onsmoker * Medications: T akingActos(Pioglitazone HCl) 30 MG Tablet 1 tablet Orally Once a day Allopurinol 100 MG Tablet 1 tablet Orally Once a day amLODIPine Besylate 5 MG Tablet take 1 tablet by mouth once daily Aspirin 81(Aspirin) 81 MG Tablet Delayed Release 1 tablet Orally Once a day Atorvastatin Calcium 40 MG Tablet 1 tablet Orally Once a day Carvedilol 25 MG Tablet 1 tablet Orally Twice a day Gentle Iron(Fe Bisgly-Vit C-Vit B12-FA) 28-60-0.008-0.4 MG Capsule 1 capsule Orally Once a day Glimepiride 2 MG Tablet TAKE 1 TABLET DAILY WITH BREAKFAST OR FIRST MAIN MEAL OF THE DAY Isosorbide Mononitrate ER 30 MG Tablet Extended Release 24 Hour 1 tablet in the morning Orally Once a day Jardiance(Empagliflozin) 10 MG Tablet 1 tablet Orally Once a day Lancets - Miscellaneous Use as directed to check blood sugar daily DX: E11.3551 levoFLOXacin 750 MG Tablet 1 tablet Orally Once a day metFORMIN HCl 1000 MG Tablet 1 tablet with a meal Orally BID Olmesartan Medoxomil-HCTZ 40-25 mg Tablet TAKE 1 TABLET DAILY OneTouch Ultra Test(Glucose Blood) - Strip Use as directed In Vitro to test blood sugars daily DX: E11 Tamsulosin HCl 0.4 MG Capsule take 1 capsule by mouth once daily Vitamin B-12 5000 MCG Tablet Disintegrating as directed Orally Vitamin C 1000 MG Tablet 1 tablet Orally Once a day Vitamin D (Cholecalciferol) 50 MCG (2000 UT) Capsule 1 capsule Orally Once a day Zetia(Ezetimibe) 10 MG Tablet 1 tablet Orally Once a day Zinc 50 MG Tablet 1 tablet Orally Once a day Medication List reviewed and reconciled with the patientTaking Actos(Pioglitazone HCl) 30 MG Tablet 1 tablet Orally Once a day Taking Allopurinol 100 MG Tablet 1 tablet Orally Once a day Taking amLODIPine Besylate 5 MG Tablet take 1 tablet by mouth once daily Taking Aspirin 81(Aspirin) 81 MG Tablet Delayed Release 1 tablet Orally Once a day Taking Atorvastatin Calcium 40 MG Tablet 1 tablet Orally Once a day Taking Carvedilol 25 MG Tablet 1 tablet Orally Twice a day Taking Gentle Iron(Fe Bisgly-Vit C-Vit B12- FA) 28-60-0.008-0.4 MG Capsule 1 capsule Orally Once a day Taking Glimepiride 2 MG Tablet TAKE 1 TABLET DAILY WITH BREAKFAST OR FIRST MAIN MEAL OF THE DAY Taking Isosorbide Mononitrate ER 30 MG Tablet Extended Release 24 Hour 1 tablet in the morning Orally Once a day Taking Jardiance(Empagliflozin) 10 MG Tablet 1 tablet Orally Once a day Taking Lancets - Miscellaneous Use as directed to check blood sugar daily DX: E11.3551 Taking levoFLOXacin 750 MG Tablet 1 tablet Orally Once a day Taking metFORMIN HCl 1000 MG Tablet 1 tablet with a meal Orally BID Taking Olmesartan Medoxomil-HCTZ 40-25 mg Tablet TAKE 1 TABLET DAILY Taking OneTouch Ultra Test(Glucose Blood) - Strip Use as directed In Vitro to test blood sugars daily DX: E11 Taking Tamsulosin HCl 0.4 MG Capsule take 1 capsule by mouth once daily Taking Vitamin B-12 5000 MCG Tablet Disintegrating as directed Orally Taking Vitamin C 1000 MG Tablet 1 tablet Orally Once a day Taking Vitamin D (Cholecalciferol) 50 MCG (2000 UT) Capsule 1 capsule Orally Once a day Taking Zetia(Ezetimibe) 10 MG Tablet 1 tablet Orally Once a day Taking Zinc 50 MG Tablet 1 tablet Orally Once a day Medication List reviewed and reconciled with the patient * Allergies: N .K.D.A.no[Allergies Verified] Objective: * Vitals: W t:271.8lbs, Ht: 68 in, BP:122/74mm Hg, BMI:41.32Index, Ht-cm: 172.72 cm, Wt-k.29 kg. * Examination: P hysical Exam: GENERAL: w ell developed, well nourished, in no acute distress. HEAD: n ormocephalic/atraumatic. EYES: p upils equal, round and reactive to light, conjunctivae and sclerae normal. EARS: n o deformity or lesion of external ear, canals and TM appear normal bilaterally, TM's intact, not inflamed with normal light reflex, hearing grossly normal to conversational speech. NOSE: n o deformity, discharge, inflammation, or lesions.? MOUTH: m ucous membranes moist, normal oropharynx and posterior pharynx without lesions or exudates, tongue normal, dentition normal. NECK: n robbie supple, no masses or palpable cervical nodes, trachea midline, thyroid without nodules, masses, tenderness, or enlargement. CHEST: n o chest wall deformity, no chest wall tenderness.? LUNGS: n ormal respiratory effort and clear to auscultation, no wheezes, rales, or rhonchi, good air exchange. CARDIO: r egular rate and rhythm, normal S1 and S2, nor murmur, rub, or gallop. PULSES: n ormal capillary refill. ABDOMEN: s oft, non-distended, non-tender, no masses. MUSCULOSKELETAL: n o deformity or scoliosis noted, normal range of motion, joints normal, no erythema, edema, effusion, or ecchymosis. EXTREMITY: n o clubbing, cyanosis, edema, or deformity with normal ROM in both upper and lower bilateral extremities. NEUROLOGIC: g rossly normal. SKIN: n o rashes, ulcerations, or suspicious lesions. LYMPH NODES: n o cervical adenopathy, nodes normal. MENTAL STATUS: a lert and oriented x3, normal mood and affect. Assessment: * Assessment: 1. N evus - D22.9 (Primary) 2 . E ssential (primary) hypertension - I10? 3. P ure hypercholesterolemia, unspecified - E78.00 4 . A therosclerotic heart disease of [place] coronary artery without angina pectoris - I25.10 Plan: * Treatment: * Procedure Codes: * * Sign off status: Completed Visit Status: C HK (Check Out) true * Provider: Marisela Crane ([facility])MD Date: 0 05/04/2025 Generated for Printi ng/Faxing/eTransmitting on: 0 06/07/2025 11:17 AM EDT History and Physical Notes * HPI (History of Present Illness) Category Sub-Category Detail Notes Category Not es General dm - 110's - h - stable gout controlled chol med - on meds - revieweed Examination Category Sub-Category Detail Notes Category Not es Physical Exam GENERAL: well developed, well nourished, in no acute distress HEAD: normocephalic/atraum atic EYES: pupils equal, round and reactive to light, conjunctivae and sclerae normal EARS: no deformity or lesi on of external ear, canals and TM appear normal bilaterally, TM's intact, not inflamed with normal light reflex, hearing grossly normal to conversational speech NOSE: no deformity, discha rge, inflammation, or lesions MOUTH: mucous membranes em st, normal oropharynx and posterior pharynx without lesions or exudates, tongue normal, dentition normal NECK: neck supple, no mass es or palpable cervical nodes, trachea midline, thyroid without nodules, masses, tenderness, or enlargement CHEST: no chest wall deform ity, no chest wall tenderness LUNGS: normal respiratory e ffort and clear to auscultation, no wheezes, rales, or rhonchi, good air exchange CARDIO: regular rate and rhy thm, normal S1 and S2, nor murmur, rub, or gallop PULSES: normal capillary ref ill ABDOMEN: soft, non-distended, non-tender, no masses RECTAL: MUSCULOSKELETAL: no deformity or scol iosis noted, normal range of motion, joints normal, no erythema, edema, effusion, or ecchymosis EXTREMITY: no clubbing, cyanosi s, edema, or deformity with normal ROM in both upper and lower bilateral extremities NEUROLOGIC: grossly normal SKIN: no rashes, ulceratio ns, or suspicious lesions LYMPH NODES: no cervical adenopat hy, nodes normal MENTAL STATUS: alert and oriented x 3, normal mood and affect Consultation Request Notes Referral Date Referring Provider Referred Provider Not joy 05/04/2025 Moshe Crane Michael
--- OUTSIDE RECORDS SUMMARY | 2025-05-11 10:59 | XMS_ITS ---
Author Organization [facility] in [place] Address [address] [place] [address] Care Team Providers Care Investment Advisor Name Role Phone Moshe Crane Primary Care Provider REASON FOR VISIT new glucometer Medications Medication SIG (Take, Route, Frequency, Duration) Notes Start Date End Date Status Glucometer - Use meter to test bl ood sugar daily DX: E11.3552 05/11/2025 Active Encounters Encounter Location Date Provider Diagnosis [facility] [address] [place] [address] 05/11/2025 Moshe Crane Plan Of Treatment Medication Medication Name Sig Start Date Stop Date Notes Glucometer - Use meter to test bl ood sugar daily DX: E11.3552 05/11/2025 Next Appt Details Provider Name:Maureen Cedeno , 07/04/2025 11:30:00 AM, [address] [place], [address], Provider Name:Moshe Crane, 10:30:00 AM, [address] [place], [address], Progress Notes * Roland HONG MDOB:1955 (70 yo M)Acc No.[id number]:05/11/2025 Patient: Roland LYMAN :1955 A ge:70 Y S ex:Male Address:[address], [place], [address] * Refills Start Glucometer -, -, 1 Each, Use meter to test blood sugar daily DX: E11.3552, Refills=0 * true * Date: Generated for Edvin hernandez/Maxwell/Mandoitting on: 0 06/07/2025 11:17 AM EDT
--- NOTE | 2025-06-07 | OP_ITS ---
OPERATION DATE: 06/07/2025 PREOPERATIVE DIAGNOSIS: Non-healing ulceration of the right upper posterior pinna. POSTOPERATIVE DIAGNOSIS: Non-healing ulceration of the right upper posterior pinna. PROCEDURE: Excisional biopsy of non-healing ulcer right upper posterior pinna. SURGEON: Mac Schroeder M.D. ANESTHESIA: Local with 0.5% Marcaine plain. ESTIMATED BLOOD LOSS: Less than 7 mL. INDICATIONS AND CONSENT: Patient is a 70-year-old male with a long history of non-healing ulceration on the posterior right pinna. This increased in size. Indications, risks, benefits, alternatives of proceeding with excisional biopsy for definitive diagnosis and treatment were explained extensively to the patient, including risks of bleeding, infection, scarring, pain, recurrence, need for further surgery. All of his questions were answered. Informed consent was obtained. PROCEDURE: Patient brought to the operating room, placed in the left lateral decubitus position. The area was prepped and draped in the usual sterile fashion. Posterior ulceration measured 1 x 0.8 cm. This was anesthetized with 0.5% Marcaine plain. It was then excised in elliptical fashion, down to subcutaneous fat and sent off to Pathology. The incision was carried down to cartilage. Total length of the incision was 2.5 cm. Subcutaneous tissue was closed with interrupted 4-0 Monocryl suture. The skin was then closed with 5-0 nylon interrupted sutures. There was good hemostasis. A small amount of antibiotic ointment was applied. Patient tolerated procedure well, was sent back to recovery area, then discharged to home in good condition. He is to follow up in 7-10 days for suture removal. He is to call sooner with any problems or questions. CC: Emmanuel Crane M.D. NAVJOT
--- OUTSIDE RECORDS SUMMARY | 2025-06-07 11:17 | XMS_ITS | Clinical Summary ---
Author Organization [facility] Address [address] [place] [address] Care Team Providers Care Saw Cleaner Name Role Phone Emmanuel Crane MD Primary Care Provider [phone] Mala Burgos MD Unavailable Allergies No known active allergies Medications allopurinol (Zyloprim) 100 mg tablet Take 100 mg by mouth in the morning. Active ascorbic acid (Vitamin C) 1,000 mg tablet Take 1,000 mg by mouth in the morning. Active aspirin 81 mg EC tablet Take 81 mg by mouth in the morning. Active calcium polycarbophiL (Fibercon) 625 mg tablet Take 2 tablets by mouth 1 (one) time each day. Active carvedilol (Coreg) 25 mg tablet Take 25 mg by mouth every 12 (twelve) hours. Active cholecalciferol, vitamin D3, 50 mcg (2,000 unit) capsule Take 2,000 Units by mouth in the morning. Active clopidogrel (Plavix) 75 mg tablet Take 75 mg by mouth 1 (one) time each day. Active empagliflozin (Jardiance) 10 mg Take 10 mg by mouth 1 (one) time each day. 1 Active ezetimibe (Zetia) 10 mg tablet Take 10 mg by mouth 1 (one) time each day. Active metFORMIN (Glucophage) 1,000 mg tablet Take 1,000 mg by mouth with breakfast and with evening meal. 3 Active olmesartan-hydroch lorothiazide (BENIcar HCT) 40-25 mg tablet Take 1 tablet by mouth 1 (one) time each day. Active pioglitazone (Actos) 30 mg tablet Take 30 mg by mouth in the morning. 1 Active semaglutide (Ozempic) 0.25 mg or 0.5 mg(2 mg/1.5 mL) pen injector Inject 0.5 mg under the skin 1 (one) time per week. Patient taking 1 mg. 3 Active atorvastatin (Lipitor) 40 mg tabletIndications: Coronary artery disease of [place] artery of [place] with stable angina pectoris Take 1 tablet (40 mg) by mouth in the morning. 90 tablet 3 3 Active isosorbide mononitrate ER (Imdur) 30 mg 24 hr tabletIndications: Coronary artery disease of [place] artery of [place] with stable angina pectoris Take 1 tablet (30 mg) by mouth in the morning. Do not crush or chew. 90 tablet 3 3 Active Active Problems Problem Noted Date Diagnosed Date Coronary artery disease 06/12/2023 Dyspnea on exertion 06/12/2023 Atherosclerotic heart diseas e of [place] coronary artery without angina pectoris 06/11/2023 06/11/2023 Chest pain 06/11/2023 Diverticulosis of intestine, part unspecified, without perforation or abscess without bleeding 06/11/2023 06/11/2023 Pure hypercholesterolemia, unspecified 3 06/11/2023 Serous retinal detachment, unspecified eye 06/1106/11/2023 Unspecified osteoarthritis, unspecified site 06/11/2023 Essential hypertension 06/10/2023 Mixed hyperlipidemia 06/10/2023 Diabetes mellitus type II, non insulin dependent 06/10/2023 Traction retinal detachment sparing macula 03/2806/10/2023 Retinal detachment of left eye with multiple maria fernanda aks 02/05/2016 06/10/2023 Immunizations Immunization Administration Dates Next Due Influenza, Unspecified 08/02/2021 Influenza, injectable, quadrivalent, preservativ e free 09/01/2018,09/19/2017 Pneumococcal Conjugate PCV 13 10/03/2020 Pneumococcal Polysaccharide PPV23 08/30/2020 Family History Medical History Relation Name Comments Prostate cancer Father Stroke Mother Relation Name Status Comments Father Mother Social History Tobacco Use Types Packs/Day Years Used Date Smoking Tobacco: Never Smokeless Tobacco: Never Tobacco Cessation:Counseling Given: No Alcohol Use Standard Drinks/Week Comments Yes 0 (1 standard drink = 0.6 oz pur e alcohol) occasional PHQ-2 Answer Date Recorded Patient Health Questionnaire-2 Score 0 09/29/2023 [place] Safety & Environment Answer Date Rec orded Fear of Current or Ex-Partner Not on file Emotionally Abused Not on file 01/15/2024 Physically Abused Not on file 01/15/2024 Sexually Abused Not on file 01/15/2024 Physically or Sexually Abused Not on file Sex and Gender Information Value Date Recorded Sex Assigned at Male 06/10/2023 9:25 PM EDT Legal Sex Male 2:50 PM EDT Gender Identity Male 06/10/2023 9:25 PM EDT Sexual Orientation Heterosexual or Straight 05/23 9:25 PM EDT Last Filed Vital Signs Vital Sign Reading Time Taken Comments Blood Pressure 135/82 09/29/2023 2:41 PM EST Pulse 80 09/29/2023 2:41 PM EST Temperature 36.6 C (97.8 F) 09/29/2023 2:41 PM EST Respiratory Rate 16 09/29/2023 2:41 PM EST Oxygen Saturation 99% 09/29/2023 2:41 PM EST Inhaled Oxygen Concentration - - Weight 106 kg (234 lb) 09/29/2023 2:41 PM EST Height 172.7 cm (5' 8 ) 09/29/2023 2:41 PM EST Body Mass Index 35.58 09/29/2023 2:41 PM EST Plan of Treatment Health Maintenance Due Date Last Done Comments CT Colonography 1955 Colonoscopy 1955 Colorectal Cancer Screening 1955 Diabetes: Hemoglobin A1C 1955 FIT-DNA 1957 FIT 1955 FOBT 1955 Medicare Annual Wellness (AWV) 1955 Sigmoidoscopy 1955 Diabetes: Retinopathy Screening 1967 Depression Screening 1969 Diabetes: Urine Protein Screening 1976 Adult Tetanus 1979 Zoster Vaccines (1 of 2) 2007 Fall Risk Screening 2022 COVID-19 Vaccine ( - 2023-2 5 season) 2024 Influenza Vaccine (#1) 2025 1, 09/01/2018, 09/19/2017 Pneumococcal Vaccine: 50+ Years (3 of 3 - PCV20 or PCV21) 10/03/2025 10/03/2020, 08/30/2020 HIB Vaccines Aged Out No longer eligi ble based on patient's age to complete this topic HPV Vaccines Aged Out No longer eligi ble based on patient's age to complete this topic IPV Vaccines Aged Out No longer eligi ble based on patient's age to complete this topic Meningococcal B Vaccine Aged Out No l onger eligible based on patient's age to complete this topic Meningococcal Vaccine Aged Out No kal jovita eligible based on patient's age to complete this topic Rotavirus Vaccines Aged Out No longer eligible based on patient's age to complete this topic Insurance [employer] Care Teams Saw Cleaner Relationship Specialty Start Date End Date Emmanuel Crane MD [address] [facility] [address] [address] PCP - General 06/10/23 Mala Burgos MD [address] [facility] [address] [place] [address] Cardiology 06/10/23
--- OUTSIDE RECORDS SUMMARY | 2025-06-07 11:17 | XMS_ITS | Patient Health Record ---
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 Crating Name Role Phone Moshe Crane Primary Care Provider [phone] Wilian, Maureen Unavailable [phone] Allergies No Known Allergies Results Component Value Reference Range Notes BNP Reviewed date:02/01/2025 12:57:01 PM Interpretation: Performing Lab: Notes/Report: [facility] , NT Pro B Type Natriuretic Pept 112.0 <=900.0 pg/mL Performing Lab: see note ML - [facility] LB CBC AUTO DIFF Reviewed date:02/01/2025 12:57:01 PM Interpretation: Performing Lab: Notes/Report: [facility] , White Blood Count 7.0 4.0-11.0 10 3/uL Red Blood Count 4.66 4.70-6.10 10 6/uL Hemoglobin 13.1 14.0-18.0 g/dL Hematocrit 42.0 42.0-54.0 % Mean Corpuscular Volume 90.1 80.0-94.0 fL Mean Corpuscular Hemoglobin 28.1 25.9-34.0 pg Mean Corpuscular HGB Conc 31.2 29.9-35.2 g/dL Red Cell Distribution Width 15.4 11.0-15.0 % Platelet Count 154 150-450 10 3/uL Mean Platelet Volume 11.2 9.5-13.5 fL Neutrophils Percent Auto 68.6 43.0-75.0 % Lymphocytes Percent Auto 15.5 20.5-60.0 % Monocytes Percent Auto 9.4 1.7-12.0 % Eosinophils Percent Auto 4.6 0.9-7.0 % Basophils Percent Auto 0.9 0.2-2.0 % Immature Granulocytes Pct Auto 1.0 0.0-0.5 % Neutrophils Absolute Auto 4.8 1.4-6.5 10 3/uL Lymphocytes Absolute Auto 1.1 1.2-3.8 10 3/uL Monocytes Absolute Auto 0.7 0.3-0.8 10 3/uL Eosinophils Absolute Auto 0.3 0.0-0.7 10 3/uL Basophils Absolute Auto 0.1 0.0-0.1 10 3/uL Immature Granulocytes Abs Auto 0.07 0.00-0.03 10 3/uL Performing Lab: see note ML - [facility] FREE T3 Reviewed date:02/01/2025 12:57:01 PM Interpretation: Performing Lab: Notes/Report: [facility] , Free T3 2.77 2.18-3.98 pg/mL Performing Lab: see note ML - [facility] LB LIPID PROFILE Reviewed date:02/01/2025 12:57:01 PM Interpretation: Performing Lab: Notes/Report: [facility] , Triglycerides 270 <=150 mg/dL Cholesterol 158 <=200 mg/dL HDL Cholesterol 41 40-60 mg/dL > or =60 mg/dl - LOW CARDIOVASCULAR RISK <40 mg/dl - HIGH CARDIOVASCULAR RISK LDL Cholesterol Calculated 63.0 <100 mg/dl OPTIMAL 100-129 mg/dl NEAR OR ABOVE OPTIMAL 130-159 mg/dl BORDERLINE HIGH 160-189 mg/dl HIGH >190 mg/dl VERY HIGH VLDL CHOLESTEROL 54.0 Chol HDL Ratio 3.9 3.3 - 4.4 LOW RISK 4.4 - 7.1 AVERAGE RISK 7.1 - 11.0 MODERATE RISK >11.0 HIGH RISK Performing Lab: see note ML - [facility] LB PROF 14(COMP METB) Reviewed date:02/01/2025 12:57:01 PM Interpretation: Performing Lab: Notes/Report: [facility] , Sodium 139 136-145 mmol/L Potassium 4.2 3.5-5.1 mmol/L Chloride 103 98-107 mmol/L Carbon Dioxide 26.4 21.0-32.0 mmol/L Anion Gap 13.8 Glucose 112 74-106 mg/dL Blood Urea Nitrogen 30.0 7.0-18.0 mg/dL Creatinine 1.42 0.70-1.30 mg/dL Estimated GFR ( Celeste >60 >=60 mL/min/1.73m 2 Estimated GFR (Non- Trinity 50 >=60 mL/min/1.73m 2 BUN Creatinine Ratio 21.1 Calcium 9.4 8.5-10.1 mg/dL Bilirubin Total 0.5 0.2-1.0 mg/dL Aspartate Amino Transferase 24 15-37 U/L Alanine Aminotransferase 43 16-63 U/L Alkaline Phosphatase 94 46-116 U/L Total Protein 6.7 6.4-8.2 g/dL Albumin Level 4.0 3.4-5.0 g/dL Globulin 2.7 Albumin Globulin Ratio 1.5 Performing Lab: see note ML - [facility] PSA SCREENING Reviewed date:02/01/2025 12:57:01 PM Interpretation: Performing Lab: Notes/Report: [facility] , Prostate Specific Antigen Scrn 1.93 <=4.00 ng/mL Performing Lab: see note ML - [facility] LB T4 Reviewed date:02/01/2025 12:57:01 PM Interpretation: Performing Lab: Notes/Report: [facility] , T4 Thyroxine 7.20 4.50-12.10 ug/dL Performing Lab: see note ML - [facility] LB TSH Reviewed date:02/01/2025 12:57:01 PM Interpretation: Performing Lab: Notes/Report: [facility] , Thyroid Stimulating Hormone 1.404 0.358-3.740 uIU/mL Performing Lab: see note ML - [facility] LB UA RANDOM W or MICROSCOPIC Reviewed date:02/01/2025 12:57:01 PM Interpretation: Performing Lab: Notes/Report: [facility] , Color Urine LT. YELLOW YELLOW Clarity Urine CLEAR CLEAR Specific [place] Urine 1.020 1.005-1.025 pH Urine 5.5 5.0-9.0 Protein Urine NEGATIVE NEG/TRACE mg/dL Glucose Urine UA >=1000 NEGATIVE mg/dL Bilirubin Urine NEGATIVE NEGATIVE Ketones Urine NEGATIVE NEGATIVE mg/dL Blood Urine NEGATIVE NEGATIVE Nitrite Urine NEGATIVE NEGATIVE Urobilinogen Urine 0.2 0.2-1.0 EU/dL Leukocyte Esterase Urine TRACE NEGATIVE WBC Urine 0-2 NONE SEEN #/HPF RBC Urine 0-2 0-2 #/HPF Bacteria Urine NONE SEEN NONE SEEN #/HPF Mucus Urine NONE SEEN NONE SEEN Squamous Epithelial Cell Urine RARE NONE/RARE #/LPF Crystals Seen? None Seen None Seen #/HPF Cast Seen? NONE SEEN NONE SEEN #/LPF Urine Culture Indicated ALREADY ORDERED Performing Lab: see note ML - [facility] LB CBC AUTO DIFF (Not yet revie wed by provider) Interpretation: Performing Lab: Notes/Report: [facility] , White Blood Count 6.1 4.0-11.0 10 3/uL Red Blood Count 4.48 4.70-6.10 10 6/uL Hemoglobin 12.6 14.0-18.0 g/dL Hematocrit 39.3 42.0-54.0 % Mean Corpuscular Volume 87.7 80.0-94.0 fL Mean Corpuscular Hemoglobin 28.1 25.9-34.0 pg Mean Corpuscular HGB Conc 32.1 29.9-35.2 g/dL Red Cell Distribution Width 15.2 11.0-15.0 % Platelet Count 134 150-450 10 3/uL Mean Platelet Volume 11.8 9.5-13.5 fL Neutrophils Percent Auto 68.2 43.0-75.0 % Lymphocytes Percent Auto 15.2 20.5-60.0 % Monocytes Percent Auto 9.0 1.7-12.0 % Eosinophils Percent Auto 5.1 0.9-7.0 % Basophils Percent Auto 0.7 0.2-2.0 % Immature Granulocytes Pct Auto 1.8 0.0-0.5 % Neutrophils Absolute Auto 4.2 1.4-6.5 10 3/uL Lymphocytes Absolute Auto 0.9 1.2-3.8 10 3/uL Monocytes Absolute Auto 0.6 0.3-0.8 10 3/uL Eosinophils Absolute Auto 0.3 0.0-0.7 10 3/uL Basophils Absolute Auto 0.0 0.0-0.1 10 3/uL Immature Granulocytes Abs Auto 0.11 0.00-0.03 10 3/uL Performing Lab: see note ML - [facility] LB FERRITIN (Not yet reviewed b y provider) Interpretation: Performing Lab: Notes/Report: [facility] , Ferritin 228.0 26.0-388.0 ng/mL Performing Lab: see note ML - [facility] LB IRON AND TIBC (Not yet revie wed by provider) Interpretation: Performing Lab: Notes/Report: [facility] , Iron 59.0 65.0-175.0 ug/dL Total Iron Binding Capacity 213.0 250.0-450.0 ug/dL Percent Iron Saturation 27.7 Performing Lab: see note ML - [facility] LB PROF 14(COMP METB) (Not yet reviewed by provider) Interpretation: Performing Lab: Notes/Report: [facility] , Sodium 141 136-145 mmol/L Potassium 4.0 3.5-5.1 mmol/L Chloride 103 98-107 mmol/L Carbon Dioxide 31.7 21.0-32.0 mmol/L Anion Gap 10.3 Glucose 109 74-106 mg/dL Blood Urea Nitrogen 27.0 7.0-18.0 mg/dL Creatinine 1.27 0.70-1.30 mg/dL Estimated GFR ( [place] >60 >=60 mL/min/1.73m 2 Estimated GFR (Non- Trinity 57 >=60 mL/min/1.73m 2 BUN Creatinine Ratio 21.3 Calcium 9.2 8.5-10.1 mg/dL Bilirubin Total 0.4 0.2-1.0 mg/dL Aspartate Amino Transferase 16 15-37 U/L Alanine Aminotransferase 30 16-63 U/L Alkaline Phosphatase 86 46-116 U/L Total Protein 6.2 6.4-8.2 g/dL Albumin Level 3.4 3.4-5.0 g/dL Globulin 2.8 Albumin Globulin Ratio 1.2 Performing Lab: see note ML - [facility] LB VITAMIN D 25 [place] (Not yet rev iewed by provider) Interpretation: Performing Lab: Notes/Report: [facility] , Vitamin D 77.9 <20 ng/mL Vit D deficient 20-<30 ng/mL Vit D insufficient 30-100 ng/mL Vit D sufficient >100 ng/mL Potential Toxicity Performing Lab: see note ML - [facility] LB Vitamin B12 (Not yet reviewe d by provider) Interpretation: Performing Lab: Notes/Report: [facility] , Vitamin B12 >1999 232-1245 pg/mL Performed at: CB - [facility] [id number] [place], [place] [id number] Firer Boiler: Wilbur Dan PhD, Phone: [phone] Performing Lab: see note - [facility] LB Urine Culture - [facility] Reviewed date:02/05/2025 03:25:51 PM Interpretation: Performing Lab: Notes/Report: [facility] , Urine Culture - [facility] See Below For Report Urine Culture - [facility] Organism not Routinely Tested for Susceptibilities O:STRDYS Isolated Urine Culture - [facility] Organism Comments Urine Culture - [facility] Urine Culture - [facility] Organism not Routinely Tested for Susceptibilities O:STRDYS Isolated Urine Culture - [facility] Organism Comments Urine Culture - [facility] Testing performed at [facility] Urine Culture - [facility] Organism not Routinely Tested for Susceptibilities O:STRDYS Isolated Urine Culture - [facility] Organism Comments Urine Culture - [facility] [address] [place] [address] Urine Culture - [facility] Organism not Routinely Tested for Susceptibilities O:STRDYS Isolated Urine Culture - [facility] Organism Comments Urine Culture - [facility] See Below For Report Urine Culture - [facility] Organism not Routinely Tested for Susceptibilities O:STRDYS Isolated Urine Culture - [facility] Organism Comments Urine Culture - [facility] See Below For Report Urine Culture - [facility] Organism not Routinely Tested for Susceptibilities O:STRDYS Isolated Urine Culture - [facility] Organism Comments Urine Culture - [facility] 15,000 CFU/ML Urine Culture - [facility] Organism not Routinely Tested for Susceptibilities O:STRDYS Isolated Urine Culture - [facility] Organism Comments Performing Lab: see note ML - [facility] LB GLYCOHEMOGLOBIN A1C Reviewed date:02/01/2025 12:57:01 PM Interpretation: Performing Lab: Notes/Report: [facility] , Glycohemoglobin A1C 6.1 4.5-6.2 % ADA RECOMMENDED LIMIT 4.0 - 6.0 ADA THERAPEUTIC TARGET < 7.0 ACTION SUGGESTED > 7.0 Estimated Average Glucose 128 Performing Lab: see note - [facility] LB IRON AND TIBC Reviewed date:02/01/2025 12:57:01 PM Interpretation: Performing Lab: Notes/Report: [facility] , Iron 56.0 65.0-175.0 ug/dL Total Iron Binding Capacity 220.0 250.0-450.0 ug/dL Percent Iron Saturation 25.5 Performing Lab: see note - [facility] LB CBC AUTO DIFF Reviewed date:02/01/2025 12:57:01 PM Interpretation: Performing Lab: Notes/Report: [facility] , White Blood Count 6.2 4.0-11.0 10 3/uL Red Blood Count 4.71 4.70-6.10 10 6/uL Hemoglobin 13.1 14.0-18.0 g/dL Hematocrit 41.5 42.0-54.0 % Mean Corpuscular Volume 88.1 80.0-94.0 fL Mean Corpuscular Hemoglobin 27.8 25.9-34.0 pg Mean Corpuscular HGB Conc 31.6 29.9-35.2 g/dL Red Cell Distribution Width 17.2 11.0-15.0 % Platelet Count 146 150-450 10 3/uL Mean Platelet Volume 11.1 9.5-13.5 fL Neutrophils Percent Auto 69.1 43.0-75.0 % Lymphocytes Percent Auto 15.6 20.5-60.0 % Monocytes Percent Auto 9.6 1.7-12.0 % Eosinophils Percent Auto 4.5 0.9-7.0 % Basophils Percent Auto 0.6 0.2-2.0 % Immature Granulocytes Pct Auto 0.6 0.0-0.5 % Neutrophils Absolute Auto 4.3 1.4-6.5 10 3/uL Lymphocytes Absolute Auto 1.0 1.2-3.8 10 3/uL Monocytes Absolute Auto 0.6 0.3-0.8 10 3/uL Eosinophils Absolute Auto 0.3 0.0-0.7 10 3/uL Basophils Absolute Auto 0.0 0.0-0.1 10 3/uL Immature Granulocytes Abs Auto 0.04 0.00-0.03 10 3/uL Performing Lab: see note - [facility] LB Vitamin B12 Reviewed date:09/03/2024 10:07:13 PM Interpretation: Performing Lab: Notes/Report: [facility] , Vitamin B12 >1999 232-1245 pg/mL Performed at: [facility] [address] [id number] Firer Boiler: Wilbur Dan PhD, Phone: [phone] Performing Lab: see note - [facility] LB Reticulocyte Pct Auto Reviewed date:09/03/2024 10:07:13 PM Interpretation: Performing Lab: Notes/Report: [facility] , Reticulocyte Pct Auto 1.92 0.60-3.10 % Performing Lab: see note ML - [facility] LB Protein Electro.,S Reviewed date:09/05/2024 08:16:11 PM Interpretation: Performing Lab: Notes/Report: [facility] , Protein, Total 6.4 6.0-8.5 g/dL Albumin 3.9 2.9-4.4 g/dL Xgrdg-6-Priczxam 0.2 0.0-0.4 g/dL Xjrmk-8-Efmayngd 0.7 0.4-1.0 g/dL Beta Globulin 0.9 0.7-1.3 g/dL Gamma Globulin 0.8 0.4-1.8 g/dL M-Karl Not Observed Not Observed g/dL Globulin, Total 2.5 2.2-3.9 g/dL A/G Ratio 1.6 0.7-1.7 Please note: Comment . Protein electrophoresis scan will follow via computer, mail, or airport guide delivery. Performed at: [address] [id number] Firer Boiler: Wilbur Dan PhD, Phone: [phone] Performing Lab: see note [facility] FOLATE Reviewed date:09/03/2024 10:07:13 PM Interpretation: Performing Lab: Notes/Report: [facility] , Folate 15.10 8.60-58.90 ng/mL Performing Lab: see note ML - [facility] LB COPPER, SERUM or PLASMA Reviewed date:09/06/2024 06:04:52 PM Interpretation: Performing Lab: Notes/Report: [facility] , Copper Level 71 69-132 ug/dL This test was developed and its performance characteristics determined by [facility]. It has not been cleared or approved by the Food and Drug Administration. Detection Limit = 5 Performed at: [address] [id number] Firer Boiler: Jonathan Bhandari MD, Phone: [phone] Performing Lab: see note [facility] TSH Reviewed date:08/07/2024 11:41:57 AM Interpretation: Performing Lab: Notes/Report: [facility] , Thyroid Stimulating Hormone 1.998 0.358-3.740 uIU/mL Performing Lab: see note ML - [facility] LB PSA SCREENING Reviewed date:08/07/2024 11:41:57 AM Interpretation: Performing Lab: Notes/Report: [facility] , Prostate Specific Antigen Scrn 1.32 <=4.00 ng/mL Performing Lab: see note ML - [facility] LB FREE T4 Reviewed date:08/07/2024 11:41:57 AM Interpretation: Performing Lab: Notes/Report: [facility] , Free T4 0.90 0.76-1.46 ng/dL Performing Lab: see note ML - [facility] LB IRON Reviewed date:09/03/2024 10:07:13 PM Interpretation: Performing Lab: Notes/Report: [facility] , Iron 45.0 65.0-175.0 ug/dL Performing Lab: see note ML - [facility] LB FERRITIN Reviewed date:09/03/2024 10:07:13 PM Interpretation: Performing Lab: Notes/Report: [facility] , Ferritin 34.0 26.0-388.0 ng/mL Performing Lab: see note ML - [facility] LB CBC AUTO DIFF Reviewed date:09/03/2024 10:07:13 PM Interpretation: Performing Lab: Notes/Report: [facility] , White Blood Count 5.8 4.0-11.0 10 3/uL Red Blood Count 4.44 4.70-6.10 10 6/uL Hemoglobin 12.1 14.0-18.0 g/dL Hematocrit 38.5 42.0-54.0 % Mean Corpuscular Volume 86.7 80.0-94.0 fL Mean Corpuscular Hemoglobin 27.3 25.9-34.0 pg Mean Corpuscular HGB Conc 31.4 29.9-35.2 g/dL Red Cell Distribution Width 15.7 11.0-15.0 % Platelet Count 167 150-450 10 3/uL Mean Platelet Volume 11.2 9.5-13.5 fL Neutrophils Percent Auto 68.2 43.0-75.0 % Lymphocytes Percent Auto 17.6 20.5-60.0 % Monocytes Percent Auto 7.8 1.7-12.0 % Eosinophils Percent Auto 4.8 0.9-7.0 % Basophils Percent Auto 0.7 0.2-2.0 % Immature Granulocytes Pct Auto 0.9 0.0-0.5 % Neutrophils Absolute Auto 4.0 1.4-6.5 10 3/uL Lymphocytes Absolute Auto 1.0 1.2-3.8 10 3/uL Monocytes Absolute Auto 0.5 0.3-0.8 10 3/uL Eosinophils Absolute Auto 0.3 0.0-0.7 10 3/uL Basophils Absolute Auto 0.0 0.0-0.1 10 3/uL Immature Granulocytes Abs Auto 0.05 0.00-0.03 10 3/uL Performing Lab: see note ML - [facility] LB UA (Urinalysis, Dipstix only - w/o micro) (Not yet reviewed by provider) Interpretation: Performing Lab: Notes/Report: GLUCOSE ++ 0 - 133 MG/DL ALBUMIN - NEG - NEG MG/DL BILIRUBIN - NEG - NEG MG/DL SPECIFIC GRAVITY 1.020 1.001 - 1.035 KETONES - NEG - NEG MG/DL BLOOD, UR - PH, UR 5 5 - 9 UROBILNOGEN - 0.2 - 1 MG/DL NITRITE - NEG - NEG ESTERASE (REBECCA) - NEG - NEG MG/DL CBC AUTO DIFF Reviewed date:08/07/2024 11:41:57 AM Interpretation: Performing Lab: Notes/Report: [facility] , White Blood Count 5.4 4.0-11.0 10 3/uL Red Blood Count 4.61 4.70-6.10 10 6/uL Hemoglobin 12.6 14.0-18.0 g/dL Hematocrit 40.1 42.0-54.0 % Mean Corpuscular Volume 87.0 80.0-94.0 fL Mean Corpuscular Hemoglobin 27.3 25.9-34.0 pg Mean Corpuscular HGB Conc 31.4 29.9-35.2 g/dL Red Cell Distribution Width 16.0 11.0-15.0 % Platelet Count 158 150-450 10 3/uL Mean Platelet Volume 10.8 9.5-13.5 fL Neutrophils Percent Auto 67.5 43.0-75.0 % Lymphocytes Percent Auto 16.7 20.5-60.0 % Monocytes Percent Auto 8.1 1.7-12.0 % Eosinophils Percent Auto 5.7 0.9-7.0 % Basophils Percent Auto 1.1 0.2-2.0 % Immature Granulocytes Pct Auto 0.9 0.0-0.5 % Neutrophils Absolute Auto 3.6 1.4-6.5 10 3/uL Lymphocytes Absolute Auto 0.9 1.2-3.8 10 3/uL Monocytes Absolute Auto 0.4 0.3-0.8 10 3/uL Eosinophils Absolute Auto 0.3 0.0-0.7 10 3/uL Basophils Absolute Auto 0.1 0.0-0.1 10 3/uL Immature Granulocytes Abs Auto 0.05 0.00-0.03 10 3/uL Performing Lab: see note ML - [facility] LB FERRITIN Reviewed date:02/01/2025 12:57:01 PM Interpretation: Performing Lab: Notes/Report: [facility] , Ferritin 336.0 26.0-388.0 ng/mL Performing Lab: see note ML - [facility] LB Reason For Referral Diagnosis 1 Anemia (D64.9) Referral Organization [facility] Referring Provider First Name Moshe Referring Provider Last Name [facility] Mac [facility] Referred Provider Specialty General Surg rebel Referral Priority Routine Reason Patient would like t o be seen in [place] location please! Thank You! Diagnosis 1 Iron deficiency anem ia (D50.9) Referral Organization [facility] Referring Provider First Name Moshe Referring Provider Last Name [facility] Referring Provider [facility] radha Referred Organization [facility] Referred Provider Maureen Cedeno Referred Address [address] [address],[place], [place],[address], Referred Provider Specialty Hematology/O ncology Referral Priority Routine Diagnosis 1 Nevus (D22.9) Referral Organization [facility] Referring Provider First Name Moshe Referring Provider Last Name [facility] Referring Provider [facility] radha Referred Provider Mac Schroeder Referred Provider Specialty General Surg rebel Referral Priority Routine Medications Medication SIG (Take, Route, Frequency, Duration) Notes Start Date End Date Status Allopurinol 100 MG 1 tablet Orally Once a day for 90 days Active Jardiance 10 MG 1 tablet Orally Once a day for 90 days Active Actos 30 MG 1 tablet Orally Once a day for 90 days 05/18/2023 Active OneTouch Ultra Test - Use as directed In Vitro to test blood sugars daily DX: E11.3552 03/23/2025 Active Lancets - Use as directed to c heck blood sugar daily DX: E11.35503/23/2025 Active Zetia 10 MG 1 tablet Orally Once a day for 90 days Active Glimepiride 2 MG TAKE 1 TABLET DAILY WITH BREAKFAST OR FIRST MAIN MEAL OF THE DAY for 90 days Active Vitamin D (Cholecalciferol) 50 MCG (2000 UT) 1 capsule Orally Once a day Active Gentle Iron 28-60-0.008-0.4 MG 1 capsule Orally Once a day 11/08/2024 Active Vitamin C 1000 MG 1 tablet Orally Once a day Active Carvedilol 25 MG 1 tablet Orally Twic e a day for 90 days Active Vitamin B-12 5000 MCG as directed Orally Active Tamsulosin HCl 0.4 MG take 1 capsule by mouth once daily for 90 days Active Atorvastatin Calcium 40 MG 1 tablet Oral ly Once a day for 90 days Active Olmesartan Medoxomil-HCTZ 40-25 mg TAKE 1 TABLET DAILY for 90 days Active Aspirin 81 81 MG 1 tablet Orally Once a day Active metFORMIN HCl 1000 MG 1 tablet with a me al Orally BID for 90 days 05/18/2023 Active amLODIPine Besylate 5 MG take 1 tablet b y mouth once daily for 90 days Active levoFLOXacin 750 MG 1 tablet Orally Once a day for 14 days 03/06/2025 Active Isosorbide Mononitrate ER 30 MG 1 tablet in the morning Orally Once a day for 90 days Active Zinc 50 MG 1 tablet Orally Once a day Active Glucometer - Use meter to test bl ood sugar daily DX: E11.3552 05/11/2025 Active Immunizations Vaccine Route Administration Date Status Comme nts Flu, Flucelvax (34868) 6 mos and older, single-dose syringe IM Intramuscular 11/08/2024 Administered Social History Tobacco Use: Social History Observation Description Date Details (start date - stop date) Never Smoker NA - NA Tobacco Use/Smoking Question Answer Notes Patient is a nonsmoker Alcohol Screen (Audit-C) Question Answer Notes Did you have a drink containing alcohol in the p ast year? No Points 0 Interpretation Negative AUDIT-C (Standard) Question Answer Notes Did you have a drink containing alcohol in the p ast year? 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) Active confirmed Problem 58348315 Atherosclerotic heart disease of [place] coronary artery without angina pectoris (I25.10) Active confirmed Problem 454737733 Diverticulosis o f intestine, part unspecified, without perforation or abscess without bleeding (K57.90) Active confirmed Problem 0922920 Unspecified osteoarthritis, unspecified site (M19.90) Active confirmed Problem Chest pain (74468110) Chest pain (R07.9) Active confirmed Problem Coronary artery disease (45848440) CAD (coronary artery disease) (I25.10) Active confirmed Problem Anemia (710752033) Anemia (D64.9) Active confirmed Problem Iron deficiency anemia (18665312) Iron deficiency anemia (D50.9) Active confirmed Problem Nevus (0142745069) Nevus (D22.9) Active confirmed Problem 79627254 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, 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) Active confirmed Problem 91451979 Pure hypercholesterolem ia, unspecified (E78.00) Active confirmed Vital Signs Blood pressure diastolic 74 mm Hg 05/04/2025 Height 68 in 05/04/2025 Blood pressure systolic 122 mm Hg 05/04/2025 Weight 271.8 lbs 05/04/2025 BMI 41.32 kg/m2 05/04/2025 Encounters Encounter Location Date Provider Diagnosis [address] [address] 02/01/2025 Moshe Crane Essential (primary) hypertension I10 ; CAD (coronary artery disease) I25.10 ; Anemia D64.9 and 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, left eye E11.[address] [address] 02/01/2025 Moshe Crane [address] [address] 03/23/2025 Moshe Crane [facility] [address] [place] [place] [place] [address] 05/11/2025 Moshe Hoy [facility] [address] [place] [address] 08/07/2024 Moshe Hoy Anemia D64.9 [facility] [address] [place] [place] [place] [address] 09/02/2024 Moshe Hoy Anemia D64.9 [facility] [address] [place] [place] [place] [address] 09/03/2024 Moshe Hoy Iron deficiency anem ia D50.9 [facility] [address] [place] [place] [place] [address] 09/05/2024 Moshe Hoy [facility] [address] [place] [place] [place] [address] 03/06/2025 Moshe Hoy Dysuria R30.0 [facility] [address] [place] [place] [place] [address] 08/05/2024 Moshe Hoy Type 2 diabetes ashley itus with stable proliferative diabetic retinopathy, left eye E11.3552 ; Essential (primary) hypertension I10 ; Pure hypercholesterolemia, unspecified E78.00 and Atherosclerotic heart disease of [place] coronary artery without angina pectoris I25.10 [facility] [address] [place] [address] 11/08/2024 Moshe Hoy Type 2 diabetes ashley itus with stable proliferative diabetic retinopathy, left eye E11.3552 ; Essential (primary) hypertension I10 ; Pure hypercholesterolemia, unspecified E78.00 ; Anemia D64.9 and Encounter for immunization Z23 [facility] [address] [place] [address] 02/01/2025 Moshe Hoy Burning with urinati on R30.0 ; 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, left eye E11.3552 ; Essential (primary) hypertension I10 ; Pure hypercholesterolemia, unspecified E78.00 ; CAD (coronary artery disease) I25.10 and Iron deficiency anemia D50.9 [facility] [address] [place] [address] 05/04/2025 Moshe Crane Nevus D22.9 ; Essent ial (primary) hypertension I10 ; Pure hypercholesterolemia, unspecified E78.00 and Atherosclerotic heart disease of [place] coronary artery without angina pectoris I25.10 [facility] [address] [facility] [place] [address] 09/13/20[facility] [address] [place] [address] 11/03/2024 [facility] [address] [facility] [place] [address] 04/04/2025 Maureen Sonwla Assessments Encounter Date Diagnosis (ICD Code) Assessment Notes Treatment Notes Treatment Clinical Notes Section Notes 08/05/2024 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, 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) 08/05/2024 Essential (primary) hypertension (ICD-10 - I10) 11/08/2024 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, 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) 11/08/2024 Essential (primary) hypertension (ICD-10 - I10) 02/01/2025 Burning with urination (ICD-10 - R30.0) 02/01/2025 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, 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) 05/04/2025 Nevus (ICD-10 - D22.9) 05/04/2025 Essential (primary) hypertension (ICD-10 - I10) 03/06/2025 Dysuria (ICD-10 - R30.0) 08/07/2024 Anemia (ICD-10 - D64.9) 09/02/2024 Anemia (ICD-10 - D64.9) 09/03/2024 Iron deficiency anemia (ICD-10 - D50.9) 02/01/2025 Essential (primary) hypertension (ICD-10 - I10) 02/01/2025 CAD (coronary artery disease) (ICD-10 - I25.10) 05/04/2025 Pure hypercholesterolemi a, unspecified (ICD-10 - E78.00) 02/01/2025 Essential (primary) hypertension (ICD-10 - I10) 11/08/2024 Pure hypercholesterolemi a, unspecified (ICD-10 - E78.00) 08/05/2024 Pure hypercholesterolemi a, unspecified (ICD-10 - E78.00) 08/05/2024 Atherosclerotic heart disease of [place] coronary artery without angina pectoris (ICD-10 - I25.10) 11/08/2024 Anemia (ICD-10 - D64.9) seeing oncology - hematology 02/01/2025 Pure hypercholesterolemi a, unspecified (ICD-10 - E78.00) 05/04/2025 Atherosclerotic heart disease of [place] coronary artery without angina pectoris (ICD-10 - I25.10) 02/01/2025 Anemia (ICD-10 - D64.9) 02/01/2025 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, 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) 02/01/2025 CAD (coronary artery disease) (ICD-10 - I25.10) 11/08/2024 Encounter for immunization (ICD-10 - Z23) 02/01/2025 Iron deficiency anemia (ICD-10 - D50.9) Plan Of Treatment Pending Test Test Name Order Date Exercise Stress Nuclear Test 05/20/2023 CMP (COMPLETE METABOLIC PANEL) 3 HEMOGLOBIN A1C (GLYCO) 05/20/2023 HEMOGLOBIN A1C (GLYCO) 02/01/2025 INSULIN, TOTAL 05/20/2023 LIPID PANEL (CHOL/TRIG/HDL/LDL) 05/20/20 23 LIPID PANEL (CHOL/TRIG/HDL/LDL) 02/02/20 25 CBC WITH DIFF 05/20/2023 PSA, PROSTATE-SPECIFIC ANTIGEN 3 URIC ACID 05/20/2023 RETICULOCYTE COUNT 09/02/2024 Urinalysis Microscopic 02/01/2025 UA DIP NONAUTO WO MICRO (66671) - IN OFF ICE 02/01/2025 UA (Urinalysis, Dipstix only - w/o micro ) 03/06/2025 COPPER 09/02/2024 PSA, TOTAL 08/05/2024 STOOL OCCULT BLOOD 05/20/2023 SPEP 09/02/2024 CBC AUTO DIFF 03/27/2025 CULTURE URINE 02/01/2025 FERRITIN 03/27/2025 IRON AND TIBC 03/27/2025 PROF 14(COMP METB) 03/27/2025 THYROID PROFILE WITH TSH 08/05/2024 VIT B12 AND FOLATE 09/02/2024 VITAMIN D 25 [place] 03/27/2025 THYROID PANEL (T4/TSH/FREE T3) THYROID PANEL (T4/TSH/FREE T3) 3 PSA, SCREENING 02/01/2025 Vitamin B12 03/27/2025 CMP (COMP MET RIVERA) w/eGFR CKD-EPI 2024 CBC WITH DIFF 02/01/2025 Next Appt Details Provider Name:Maureen Cedeno , 07/04/2025 11:30:00 AM, [address] [place], [address], Provider Name:Moshe Crane, 10:30:00 AM, [address] [facility] [place], [address], Insurance Providers Payer Name Payer Address Payer Phone Subscriber Number Group Number Insured Name Patient Relationship to Insured Coverage Start Date Coverage End Date [place]IC[place] [address] [place] [address] [id number] Roland Hong Self - patient is the insured [employer] [address] [employer] [place], [place] [id number] [phone] [id number] Roland Hong Self - patient is the insured Medical (General) History Medical History History ICD Code Rectal Bleeding Covid-19 Virus Inguinal Hernia Gout Surgical History Surgery Date(Month/Year) Colonoscopy & EGD Dr Villa 08/29/[address] Lucas - Triple Bypass 10/28/2023 Cataract Extraction [place] Vitrectomy- Left Cataract Removal Angioplasty Hospitalization History Reason Date(Month/Year) [facility]- Open Heart Surgery 10/2023 covid 12/2019
--- OUTSIDE RECORDS SUMMARY | 2025-06-07 11:18 | XMS_ITS | Clinical Summary ---
Author Organization [facility] Address [facility] [place]-[id number] [address] [place] [address] Care Team Providers Care Adult Education Instructor Name Role Phone Emmanuel Crane MD Primary Care Provider [phone] Allergies No known active allergies Medications carvedilol (COREG) 25 mg tablet Take 1 tablet (25 mg total) by mouth in the morning and 1 tablet (25 mg total) before bedtime. Take 25 mg by mouth daily. Active olmesartan-hydro chlorothiazide (BENICAR HCT) 40-25 mg per tablet Take 1 tablet by mouth daily Active aspirin 81 mg Take 1 tablet (81 mg total) by mouth in the morning. Active metFORMIN (GLUCOPHAGE) 1000 mg tablet Take 1 tablet (1,000 mg total) by mouth in the morning and 1 tablet (1,000 mg total) in the evening. Take with meals. Active ferrous sulfate 325 (65 FE) mg tablet Take by mouth. 0 Active empagliflozin (JARDIANCE) 10 mg tablet tablet JARDIANCE 10 MG TABLET 1 Active ezetimibe (ZETIA) 10 mg tablet Take 1 tablet (10 mg total) by mouth. Active pioglitazone (ACTOS) 30 mg tablet 1 Active allopurinoL (ZYLOPRIM) 100 mg tablet Take 1 tablet (100 mg total) by mouth in the morning. Active ascorbic acid, vitamin C, (VITAMIN C) 1000 mg tablet Take 1 tablet (1,000 mg total) by mouth in the morning. Active cholecalciferol, vitamin D3, 2,000 units capsule Take 1 capsule (2,000 Units total) by mouth in the morning. Active cyanocobalamin, vitamin B-12, 1,000 mcg/mL drops Take 2,500 mg by mouth in the morning. Active ZINC ORAL Take 50 mg by mouth in the morning. Active glimepiride (AMARYL) 2 mg tablet Take 1 tablet (2 mg total) by mouth. Active isosorbide mononitrate (IMDUR) 30 mg 24 hr tablet Take 1 tablet (30 mg total) by mouth daily. Active tamsulosin (FLOMAX) 0.4 mg capsule Take 1 capsule (0.4 mg total) by mouth in the morning. 3 Active acetaminophen (TYLENOL EXTRA STRENGTH) 500 mg tablet Take 2 tablets (1,000 mg total) by mouth every 6 (six) hours as needed. 3 Active Active Problems No known active problems Encounters Date Type Department Care Team Description 04/04/2025 Telephone [facility] [address] [place] [address] Joyce Peacock CMA from Last 3 Months Family History Medical History Relation Name Comments Prostate cancer Brother Bone cancer Father Cancer Father Prostate cancer Father Stomach cancer Mother Stroke Mother Cancer Paternal Aunt Relation Name Status Comments Brother Alive Father Mother Paternal Aunt Social History Tobacco Use Types Packs/Day Years Used Date Smoking Tobacco: Never Smokeless Tobacco: Never Alcohol Use Standard Drinks/Week Comments No 0 (1 standard drink = 0.6 oz pur e alcohol) Childcare Answer Date Recorded Childcare Unknown 05/02/2019 Employment Answer Date Recorded Employment Unknown 05/02/2019 Hunger Screening Answer Date Recorded Within the past 12 months we worried whether our food would run out before we got money to buy more. Never True 08/17/2024 Within the past 12 months th e food we bought just didn't last and we didn't have money to get more. Never True 08/17/2024 Purpose - Life Answer Date Recorded Purpose and direction in life Unknown Sex and Gender Information Value Date Recorded Sex Assigned at Not on file Legal Sex Male 2:08 PM EDT Gender Identity Not on file Sexual Orientation Not on file Last Filed Vital Signs Vital Sign Reading Time Taken Comments Blood Pressure 92/69 08/29/2024 11:06 AM EDT Pulse 67 08/29/2024 11:06 AM EDT Temperature 36.7 C (98 F) 08/29/2024 8:30 AM EDT Respiratory Rate 25 08/29/2024 11:06 AM EDT Oxygen Saturation 94% 08/29/2024 11:06 AM EDT Inhaled Oxygen Concentration - - Weight 110.2 kg (243 lb) 08/29/2024 8:30 AM EDT Height 172.7 cm (5' 8 ) 08/29/2024 8:30 AM EDT Body Mass Index 36.95 08/29/2024 8:30 AM EDT Plan of Treatment Health Maintenance Due Date Last Done Comments Depression Screening 1969 Adult BMI Follow Up Plan 1975 DTaP,Tdap and Td Vaccines (1 - Tdap) 1976 Zoster (Shingles) Vaccine (1 of 2) 2007 Fall Risk Screening 2022 Influenza Vaccine 07/24/2025 08/02/2021, , 08/16/2020, Additional history exists Adult BMI Screening 08/29/2025 08/29/2024 Tobacco Screening 08/29/2025 08/29/2024 Colonoscopy 08/29/2029 08/29/2024, 08/29/2024 Medical Devices Implanted Type Area Foreign Language Interpreter Device Identifier Shelf Expiration Date Model / Serial / Lot Lens Iol Ultrasert 18.5d - [id number] - [id number] Implanted:Qty: 1 on 05/01/2022 by Natividad Poole MD at [facility] Lens Right: Eye [employer] 01/25/2025 [id number] 18.5 / [id number] / NA Procedures Procedure Name Priority Date/Time Associated Diagnosis Comments PROVATION COLONOSCOPY Routine 08/29/2024 8:32 AM EDT from Last 3 Months or Most Recently Relevant to Health Maintenance Results * Colonoscopy Report (08/29/2024 8:32 AM EDT) Narrative SYSTEMGENERATED, DOCUMENTATION - 08/29/2024 8:32 AM EDT This order has been auto-finalized for image and report archival in PACs. *For full report details, please reach out to your physician. This image is visible to you in MyChart.* Mac Villa DO IMG OR IMG ORDERABLES Final Result from Last 3 Months or Most Recently Relevant to Health Maintenance Insurance MEDICARE [facility] [place] [address] Care Teams Adult Education Instructor Relationship Specialty Start Date End Date Emmanuel Crane MD [address] [place] [address] PCP - General Family Medicine 08/29/24
[2025-06-07 11:26] VITALS: BP 149/81; PULSE 61; TEMP 36.3; O2SAT 99
[2025-06-07 11:44] VITALS: PULSE 62; O2SAT 97
[2025-06-07 11:45] VITALS: BP 124/77; PULSE 62; O2SAT 98
[2025-06-07 11:56] VITALS: BP 115/60
[2025-06-07] MEDS: BUPIVACAINE HCL 0.5% PF 50 MG/10 ML VIAL 6 ML INJ (12:10)
[2025-06-07] MEDS: BACITRACIN/NEOMYCIN/POLYMYXINB OINTMENT 14 GM TUBE 1 APPLIC TOPICAL (12:30)
== END 2025-06-07 12:24 | disposition home or self-care (01) ==
PROVIDERS: PCP Family Medicine; Visit Provider Surgery
PROC: (CPT 11642; principal; 2025-06-07 11:20)
DX: C44.212 Basal cell carcinoma of skin of right ear and external auricular canal (principal); I25.10 Atherosclerotic heart disease of native coronary artery without angina pectoris; I25.2 Old myocardial infarction; I48.91 Unspecified atrial fibrillation; E78.5 Hyperlipidemia, unspecified; E03.9 Hypothyroidism, unspecified
CPT/HCPCS: 11642; 12051; 88305; J0665

== ENCOUNTER 2025-06-26 09:48 | Outpatient (OUT) | payer MEDICARE, OTHER, SELFPAY ==
[2025-06-26 10:22] LABS: Hematocrit 39.6 % (42.0-54.0); Hemoglobin 12.5 g/dL (14.0-18.0); Immature Granulocytes Abs Auto 0.05 10^3/uL (0.00-0.03); Immature Granulocytes Pct Auto 0.8 % (0.0-0.5); Lymphocytes Absolute Auto 0.9 10^3/uL (1.2-3.8); Mean Corpuscular HGB Conc 31.6 g/dL (29.9-35.2); Mean Corpuscular Hemoglobin 28.0 pg (25.9-34.0); Mean Corpuscular Volume 88.8 fL (80.0-94.0); Platelet Count 150 10^3/uL (150-450); Red Blood Count 4.46 10^6/uL (4.70-6.10); Reticulocyte Pct Auto 1.85 % (0.60-3.10); White Blood Count 6.1 10^3/uL (4.0-11.0)
[2025-06-26 10:52] LABS: Alanine Aminotransferase 39 U/L (16-63); Albumin Globulin Ratio 1.3; Albumin Level 4.0 g/dL (3.4-5.0); Alkaline Phosphatase 112 U/L (46-116); Anion Gap 11.5; Aspartate Amino Transferase 18 U/L (15-37); Blood Urea Nitrogen 37.0 mg/dL (7.0-18.0); Calcium 9.8 mg/dL (8.5-10.1); Carbon Dioxide 29.6 mmol/L (21.0-32.0); Chloride 101 mmol/L (98-107); Estimated GFR (African America >60 (>=60 mL/min/1.73m^2); Estimated GFR (Non-African Ame 53 (>=60 mL/min/1.73m^2); Globulin 3.1 g/dL; Glucose 136 mg/dL (74-106); Potassium 4.1 mmol/L (3.5-5.1); Sodium 138 mmol/L (136-145); Total Protein 7.1 g/dL (6.4-8.2)
[2025-06-26 11:09] LABS: Iron 53.0 ug/dL (65.0-175.0); Percent Iron Saturation 22.3 %; Total Iron Binding Capacity 238.0 ug/dL (250.0-450.0)
[2025-06-26 11:24] LABS: Ferritin 256.0 ng/mL (26.0-388.0)
[2025-06-27 04:07] LABS: Vitamin B12 >2000 pg/mL (232-1245)
[2025-06-28 17:08] LABS: Albumin 3.7 g/dL (2.9-4.4); Alpha-1-Globulin 0.2 g/dL (0.0-0.4); Alpha-2-Globulin 0.8 g/dL (0.4-1.0); Gamma Globulin 0.9 g/dL (0.4-1.8); Immunoglobulin A, Qn, Serum 109 mg/dL (61-437)
== END 2025-06-26 09:49 | disposition home or self-care (01) ==
PROVIDERS: PCP Family Medicine; Visit Provider Internal Medicine Hematology & Oncology
DX: D64.9 Anemia, unspecified (principal); D50.9 Iron deficiency anemia, unspecified; K90.9 Intestinal malabsorption, unspecified
CPT/HCPCS: 36415; 80053; 82607; 82728; 82784; 83540; 83550; 83615; 84155; 84165; 85025; 85045; 85652; 86140; 86334

== ENCOUNTER 2025-07-04 07:22 | Outpatient (RCR) | payer MEDICARE, OTHER, SELFPAY | END 2025-07-23 23:59 | disposition home or self-care (01) | LOC: HEMC 07:22 | PROVIDERS: PCP Family Medicine; Visit Provider Internal Medicine Hematology & Oncology | DX: D64.9 Anemia, unspecified (principal); D50.9 Iron deficiency anemia, unspecified; K90.9 Intestinal malabsorption, unspecified; I25.10 Atherosclerotic heart disease of native coronary artery without angina pectoris; Z79.82 Long term (current) use of aspirin; K21.9 Gastro-esophageal reflux disease without esophagitis; Z95.5 Presence of coronary angioplasty implant and graft | CPT/HCPCS: G0463 ==